=== PATIENT | male | born 1980 | race Caucasian/White ===

== ENCOUNTER 2016-09-15 10:03 | Emergency (ER) | payer MEDICAID ==
[~2016-09-15] VITALS: Ht 193 cm; Wt 99.8 kg
[~2016-09-15 10:03] MED LIST: ACHD5005 PO; ALBU8.5H2 IH; BECL8.7A5 IH; DOXY100C2 PO; HYDR-757 PO; HYOS0.1216 PO; IBUP800T26 PO; MNTL10T PO; MONT4TAB5; NAPR-243 PO; OMEPRAZOLE; ONDA-42 SL; ONDN4T PO; PRO AIR; SLMFT1E; SODI100P15; TRAZ150T42 PO; TRM50T PO
--- NOTE | 2016-09-15 10:49 | ED Psychosocial ---
General Stated Complaint: SUICIDAL Source: patient Exam Limitations: no limitations History of Present Illness Time seen by provider: 10:47 Initial Comments To ER with reports of suicidal thoughts without plan, anxiety and depression since Thursday, 3 days ago when his left him and he states that she checked into a inpatient psychiatric facility. He is afraid she will come back. He is unemployed and has no other support system. He has a history of depression but does not take any medication for this. He has never been hospitalized for psychiatric reasons before. He is also out of his when necessary Xanax which was last filled on August 06 Timing/Duration: just prior to arrival Severity: moderate Associated Symptoms: anxiety Allergies and Home Medications Allergies Coded Allergies: Penicillins (Unverified Allergy, Mild, 11/07/09) codeine (Unverified Allergy, Mild, 11/07/09) egg (Verified Allergy, Unknown, 09/15/16) Home Medications (Reported) Albuterol 8.5 Gm Hfa.aer.ad 2 PUFF IH QID PRN PRN SHORTNESS OF BREATH (Reported ) NEEDED FOR SHORTNESS OF BREATH Beclomethasone Dipropionate 7.3 Gm Aer.w.adap 2 PUFF IH BID (Reported) 40 MCG Cefdinir 300 Mg Capsule #14 300 MG PO BID Prescribed by: AMI CALLAHAN on 09/15/16 1213 Hydrocodone Bit/Acetaminophen 1 Each Tablet 1 TAB PO BID PRN PRN PAIN (Reported ) NEEDED FOR PAIN 5-325MG TABLET Hyoscyamine Sulfate 0.125 Mg Tab #10 1-2 EACH PO Q4HR PRN PRN PRN CRAMPS Prescribed by: BECCA BURK on 12/22/13 1401 Ibuprofen 800 Mg Tablet 800 MG PO q8h PRN PRN PAIN (Reported) Lorazepam 1 Mg Tablet #10 1 MG PO BID PRN PRN ANXIETY Prescribed by: AMI CALLAHAN on 09/15/16 1153 Montelukast Sodium 10 Mg Tablet 10 MG PO DAILY (Reported) Ondansetron Hcl 4 Mg Tab #5 4 MG SL Q4H FOR NAUSEA AND VOMITING Prescribed by: BECCA BURK on 12/22/13 1401 Constitutional: see HPI EENTM: see HPI Respiratory: no symptoms reported Cardiovascular: no symptoms reported Genitourinary: no symptoms reported Musculoskeletal: no symptoms reported Skin: no symptoms reported Psychiatric/Neurological: See HPI Anxiety Depressed Emotional Problems Past Qeaetsr-Hfjtpf-Rzcfms Hx Patient Social History Recent Foreign Travel: No Contact w/Someone Who Travel: No Surgeries HX Surgeries: Yes Respiratory Hx Respiratory Disorders: Yes Respiratory Disorders: Asthma Cardiovascular Hx Cardiac Disorders: No Neurological Hx Neurological Disorders: No Gastrointestinal Hx Gastrointestinal Disorders: Yes Gastrointestinal Disorders: Gastroesophageal Reflux, Hemorrhoids Musculoskeletal Hx Musculoskeletal Disorders: No Endocrine Hx Endocrine Disorders: No Cancer Hx Cancer: No Physical Exam Vital Signs Vital Sign - Last 12Hours 09/15/16 10:10 Temp 97.5 Pulse 70 Resp 16 B/P 118/70 O2 Delivery Room Air Capillary Refill : General Appearance: WD/WN no apparent distress HEENT: PERRL/EOMI normal ENT inspection TMs normal Neck: non-tender full range of motion Respiratory: lungs clear normal breath sounds no respiratory distress no accessory muscle use Cardiovascular: regular rate, rhythm no murmur Gastrointestinal: normal bowel sounds non tender soft Extremities: normal range of motion non-tender Neurologic/Psychiatric: alert normal mood/affect oriented x 3 Appearance/Memory: disheveled Behavior/Eye Contact: cooperative good eye contact other (cries when answering questions and states that he feels very anxious and scared when he is alone) Skin: normal color warm/dry Comments He is unable to voice a specific plan for suicide. Progress/Results/Core Measures Results/Orders Lab Results Laboratory Tests Test 09/15/16 11:10 09/15/16 11:47 Range/Units Acetaminophen Level < 10 L 10-30 UG/ML Alanine Aminotransferase (ALT/SGPT) 13 0-55 U/L Albumin 4.7 H 3.2-4.5 G/DL Alkaline Phosphatase 91 40-136 U/L Anion Gap 9 5-14 MMOL/L Aspartate Amino Transf (AST/SGOT) 10 5-34 U/L BUN/Creatinine Ratio 12 Band Neutrophils 1 % Basophils # (Auto) 0.1 0.0-0.1 10^3/uL Basophils % (Manual) 0 % Basophils (%) (Auto) 1 0-10 % Blood Morphology Comment NORMAL Blood Urea Nitrogen 11 7-18 MG/DL Calcium Level 9.4 8.5-10.1 MG/DL Carbon Dioxide Level 25 21-32 MMOL/L Chloride Level 106 98-107 MMOL/L Creatinine 0.90 0.60-1.30 MG/DL Eosinophils # (Auto) 0.2 0.0-0.3 10^3/uL Eosinophils % (Manual) 1 % Eosinophils (%) (Auto) 1 0-10 % Estimat Glomerular Filtration Rate > 60 Glucose Level 98 70-105 MG/DL Hematocrit 50 40-54 % Hemoglobin 17.6 13.3-17.7 G/DL Lymphocytes # (Auto) 2.2 1.0-4.0 X 10^3 Lymphocytes % (Manual) 10 % Lymphocytes (%) (Auto) 13 12-44 % Mean Corpuscular Hemoglobin 30 25-34 PG Mean Corpuscular Hemoglobin Concent 35 32-36 G/DL Mean Corpuscular Volume 85 80-99 FL Mean Platelet Volume 9.7 7.4-10.4 FL Monocytes # (Auto) 1.2 H 0.0-1.0 X 10^3 Monocytes % (Manual) 4 % Monocytes (%) (Auto) 7 0-12 % Neutrophils # (Auto) 13.3 H 1.8-7.8 X 10^3 Neutrophils % (Manual) 80 % Neutrophils (%) (Auto) 78 H 42-75 % Platelet Count 282 130-400 10^3/uL Potassium Level 4.0 3.6-5.0 MMOL/L Reactive Lymphocytes 4 % Red Blood Count 5.90 H 4.35-5.85 10^6/uL Red Cell Distribution Width 13.8 10.0-14.5 % Salicylates Level < 5.0 L 5.0-20.0 MG/DL Serum Alcohol < 10 <10 MG/DL Sodium Level 140 135-145 MMOL/L TSH [place] Testing 0.82 0.35-4.94 UIU/ML Total Bilirubin 0.6 0.1-1.0 MG/DL Total Protein 7.3 6.4-8.2 G/DL White Blood Count 16.9 H 4.3-11.0 10^3/uL Ur Tricyclic Antidepressants Screen NEGATIVE NEGATIVE Urine Amphetamines Screen NEGATIVE NEGATIVE Urine Bacteria NEGATIVE /HPF Urine Barbiturates Screen NEGATIVE NEGATIVE Urine Benzodiazepines Screen NEGATIVE NEGATIVE Urine Bilirubin NEGATIVE NEGATIVE Urine Cannabinoids Screen POSITIVE H NEGATIVE Urine Casts NONE /LPF Urine Clarity CLEAR Urine Cocaine Screen NEGATIVE NEGATIVE Urine Color YELLOW Urine Crystals NONE /LPF Urine Culture Indicated NO Urine Glucose (UA) NEGATIVE NEGATIVE Urine Ketones NEGATIVE NEGATIVE Urine Leukocyte Esterase NEGATIVE NEGATIVE Urine Methadone Screen NEGATIVE NEGATIVE Urine Methamphetamines Screen NEGATIVE NEGATIVE Urine Mucus NEGATIVE /LPF Urine Nitrite NEGATIVE NEGATIVE Urine Opiates Screen NEGATIVE NEGATIVE Urine Oxycodone Screen NEGATIVE NEGATIVE Urine Phencyclidine Screen NEGATIVE NEGATIVE Urine Propoxyphene Screen NEGATIVE NEGATIVE Urine Protein NEGATIVE NEGATIVE Urine RBC NONE /HPF Urine RBC (Auto) NEGATIVE NEGATIVE Urine Specific [place] 1.010 L 1.016-1.022 Urine Squamous Epithelial Cells 0-2 /HPF Urine Urobilinogen NORMAL NORMAL MG/DL Urine WBC NONE /HPF Urine pH 8 5-9 My Orders Orders-AMI CALLAHAN APRN Alprazolam Tablet (Xanax Tablet) (09/15/16 11:00) Alprazolam Tablet (Xanax Tablet) (09/15/16 11:00) Alprazolam Tablet (Xanax Tablet) (09/15/16 10:59) Nicotine Patch (Nicoderm Patch) (09/15/16 11:15) Chest 1 View, Ap/Pa Only (09/15/16 11:35) Cefdinir Capsule (Omnicef Capsule) (09/15/16 12:15) Potassium Chloride (Tablet) (K Dur Table (09/15/16 12:30) Ceftriaxone Injection (Rocephin Injectio (09/15/16 12:30) Medications Given in ED Current Medications Medications Dose Ordered Sig/Adonay Route Start Time Stop Time Status Last Admin Dose Admin Nicotine 21 mg ONCE ONCE TD 09/15/16 11:15 09/15/16 11:16 DC 09/15/16 11:21 21 MG Vital Signs/I&O Vital Sign - Last 12Hours 09/15/16 10:10 Temp 97.5 Pulse 70 Resp 16 B/P 118/70 O2 Delivery Room Air Diagnostic Imaging Diagonstic Imaging: Xray Comments NAME: [facility] REC#: [id number] PT STATUS: REG ER : 1980 PHYSICIAN: AMI CALLAHAN APRN ADMIT DATE: 09/15/16/ER Draft Date of Exam:09/15/16 CHEST 1 VIEW, AP/PA ONLY Portable upright radiograph of the chest. INDICATION: Mid chest and epigastric pain for three days. FINDINGS: There is slight focal interstitial marking prominence in the left lung base that may relate to mild atelectasis or early infiltrate. The right lung is clear. The heart size is normal. No effusion or pneumothorax. Mediastinum and jhonatan appear unremarkable. IMPRESSION: Subtle interstitial focal opacity in the left lung base may relate to mild atelectasis or infiltrate. Followup PA and lateral views for better evaluation is recommended. Dictated on workstation # [id number] Dict: 09/15/16 1152 Trans: 09/15/16 1157 [id number] Interpreted by: ANTONIO RENDON MD Electronically signed by: Departure Communication Progress Notes 1150- after the Xanax patient is now much more relaxed, not tearful any longer and denies suicidal ideations. I spoke with Fady from [facility]. He will call him at 2 p.m. to set up outpatient services. They will also do welfare checks in the afternoon and evening on him for the next 2 days. Patient is in agreement with this plan. Impression Impression: Primary Impression: Anxiety Additional Impressions: Depression Qualified Code: F32.9 - Major depressive disorder, single episode, unspecified LLL pneumonia Qualified Code: J18.1 - Lobar pneumonia, unspecified organism Disposition: 01 HOME, SELF-CARE Condition: Stable Departure-Patient Inst. Decision time for Depature: 11:51 Referrals: [facility] (PCP/Family) Primary Care Physician Patient Instructions: Anxiety, Adult (DC) Add. Discharge Instructions: 1. Return to ER for any concerns 2. Call [facility] at [phone] at anytime 24 hours a day 7 days a week 365 days a year. 3. Medication as directed 4. You should follow-up with [facility] later this week to recheck blood work as your white blood cells were high today at 16.9. Scripts Cefdinir 300 Mg [id number] Mg PO BID #14 CAP Prov:AMI CALLAHAN [employer] 09/15/16 Lorazepam (Ativan)1 Mg Tablet1 Mg PO BID PRN ANXIETY #10 TAB Prov:AMI CALLAHAN [employer] 09/15/16 AMI CALLAHAN APRN Sep 15, 2016 10:49
[2016-09-15] MEDS ORDERED: ALPRAZolam 0.5 MG (XANAX) TAB ONE (10:59)
[2016-09-15] MEDS ORDERED: ALPRAZolam 0.5 MG (XANAX) TAB PO SCH (11:00)
[2016-09-15] MEDS: ALPRAZolam 1 MG (XANAX) TAB PO SCH ×2 (11:01→11:34)
[2016-09-15] MEDS ORDERED: NICOTINE 21 MG (NICODERM) PATCH TD ONE (11:15)
[2016-09-15 11:26] LABS: BASOPHILS # (AUTO) 0.1 10^3/uL (0.0-0.1); BASOPHILS % (AUTO) 1 % (0-10); EOSINOPHILS # (AUTO) 0.2 10^3/uL (0.0-0.3); EOSINOPHILS % (AUTO) 1 % (0-10); LYMPHOCYTES # (AUTO) 2.2 X 10^3 (1.0-4.0); LYMPHOCYTES % (AUTO) 13 % (12-44); MEAN CORPUSCULAR HEMOGLOBIN 30 PG (25-34); MEAN CORPUSCULAR HGB CONC 35 G/DL (32-36); MEAN CORPUSCULAR VOLUME 85 FL (80-99); MEAN PLATELET VOLUME 9.7 FL (7.4-10.4); MONOCYTES # (AUTO) 1.2 X 10^3 (0.0-1.0); MONOCYTES % (AUTO) 7 % (0-12); NEUTROPHILS # (AUTO) 13.3 X 10^3 (1.8-7.8); NEUTROPHILS % (AUTO) 78 % (42-75); PLATELET COUNT 282 10^3/uL (130-400); RED CELL DISTRIBUTION WIDTH 13.8 % (10.0-14.5); WHITE BLOOD COUNT 16.9 10^3/uL (4.3-11.0)
[2016-09-15 11:41] LABS: ALANINE AMINOTRANSFERASE 13 U/L (0-55); ALBUMIN 4.7 G/DL (3.2-4.5); ANION GAP 9 MMOL/L (5-14); ASPARTATE AMINO TRANSFERASE 10 U/L (5-34); BILIRUBIN,TOTAL 0.6 MG/DL (0.1-1.0); BLOOD UREA NITROGEN 11 MG/DL (7-18); BUN/CREATININE RATIO 12; CALCIUM 9.4 MG/DL (8.5-10.1); CARBON DIOXIDE 25 MMOL/L (21-32); CHLORIDE 106 MMOL/L (98-107); GFR ESTIMATED > 60; GLUCOSE 98 MG/DL (70-105); SALICYLATE < 5.0 MG/DL (5.0-20.0); SODIUM 140 MMOL/L (135-145); TOTAL PROTEIN 7.3 G/DL (6.4-8.2)
[2016-09-15 11:44] LABS: ACETAMINOPHEN < 10 UG/ML (10-30); ALCOHOL < 10 MG/DL (<10)
[2016-09-15 11:51] LABS: BAND NEUTROPHILS 1 %; BASOPHILS % (MANUAL) 0 %; EOSINOPHILS % (MANUAL) 1 %; LYMPHOCYTES % (MANUAL) 10 %; NEUTROPHILS % (MANUAL) 80 %; REACTIVE LYMPHOCYTES 4 %
[2016-09-15] MEDS ORDERED: LORA-405 PO (11:53)
--- NOTE | 2016-09-15 11:58 | Diagnostic Imaging Report ---
Portable upright radiograph of the chest. INDICATION: Mid chest and epigastric pain for three days. FINDINGS: There is slight focal interstitial marking prominence in the left lung base that may relate to mild atelectasis or early infiltrate. The right lung is clear. The heart size is normal. No effusion or pneumothorax. Mediastinum and jhonatan appear unremarkable. IMPRESSION: Subtle interstitial focal opacity in the left lung base may relate to mild atelectasis or infiltrate. Followup PA and lateral views for better evaluation is recommended. Dictated by: Dictated on workstation # [id number]
[2016-09-15 12:03] LABS: BILIRUBIN,URINE NEGATIVE (NEGATIVE); KETONES,URINE NEGATIVE (NEGATIVE); LEUKOCYTE ESTERASE ,URINE NEGATIVE (NEGATIVE); NITRITE,URINE NEGATIVE (NEGATIVE); PH,URINE 8 (5-9); PROTEIN,URINE NEGATIVE (NEGATIVE); UROBILINOGEN,URINE NORMAL (NORMAL)
[2016-09-15] MEDS ORDERED: CEFD300C3 PO (12:13)
[2016-09-15] MEDS ORDERED: CEFDINIR 300 MG (OMNICEF) CAP PO ONE (12:15)
[2016-09-15] MEDS ORDERED: cefTRIAXone INJECTION 1,000 MG in NS (IVPB) 50 ML IV ONE (12:30)
[2016-09-15] MEDS ORDERED: KCL 20 MEQ TAB (K-DUR) PO ONE (12:30)
[2016-09-15 12:32] LABS: SQUAMOUS EPITHELIAL CELL,UR 0-2 /HPF
[2016-09-15] MEDS ORDERED: LIDOCAINE 1% INJ 20 ML (XYLOCAINE) VIAL ONE (12:45)
[2016-09-15] MEDS ORDERED: cefTRIAXone 1 GM (ROCEPHIN) VIAL IM ONE (13:00)
[2016-09-15] MEDS ORDERED: LIDOCAINE 1% INJ 20 ML (XYLOCAINE) VIAL INJ ONE (13:00)
[2016-09-15 13:10] VITALS: BP 116/68
== END 2016-09-15 13:10 | disposition home or self-care (01) ==
LOC: EDUNIT# 10:03 → ER 10:05
DX: F41.9 Anxiety disorder, unspecified (principal); F32.9 Major depressive disorder, single episode, unspecified; J18.9 Pneumonia, unspecified organism
CPT/HCPCS: 36415; 71010; 80053; 80306; 80320; 80329; 81000; 84443; 85007; 85027; 93005; 93041; 96372

== ENCOUNTER 2018-05-13 11:26 | Emergency (ER) | payer SELFPAY ==
[~2018-05-13] VITALS: Ht 193 cm; Wt 90.7 kg
[~2018-05-13 11:26] MED LIST changes: +CEFD300C3 PO; +CYCL10TA9 PO; +LORA-405 PO; +METH4TAB PO
[2018-05-13] MEDS ORDERED: morphine INJ 10 MG/ML 1ML (SYR OR VIAL) ONE (11:28)
--- OUTSIDE RECORDS SUMMARY | 2018-05-13 11:33 | XMS REPORT ---
Author Author JAGRUTI KORY Organization [facility] Address [address] [place] [address] Care Team Providers Care Visitor Services Information Assistant Name Role Phone KORY CHAND Unavailable PROBLEMS Type Condition ICD9-CM Code [id number] Code Onset Dates Condition Status SNOMED Code Problem Obstructive sleep apnea syndrome G47.33 Active 66838585 Problem Cannabis dependence F12.20 Active 49952092 Problem Anxiety, generalized F41.1 Active 05706938 Problem Other chronic pain G89.29 Active 73300343 Problem Adjustment disorder with depressed mood F43.21 Active 63053363 Problem Chronic post-traumatic stress disorder (PTSD) F43.12 Active 318393724 Problem Post-traumatic stress disorder F43.10 Active 79411764 Problem Adjustment disorder with anxious mood F43.22 Active 21608017 Problem Adjustment disorder with mixed anxiety and depressed mood F43.23 Active 01314776 Problem Bipolar disorder, unspecified F31.9 Active 17252486 Problem Gastroesophageal reflux disease without esophagitis K21.9 Active 575676494 Problem Cannabis use disorder, moderate, dependence F12.20 Active 96162345 Problem Cigarette nicotine dependence with other nicotine-induced disorder F17.218 Active 01849300 Problem Panic disorder with agoraphobia F40.01 Active 32891254 Problem Moderate persistent asthma without complication J45.40 Active 671423003 ALLERGIES No Information ENCOUNTERS Encounter Location Date Diagnosis [facility] [id number], [place] [address] Apr, [facility] [id number] [place] [address] 95760- 0098 Apr, Bipolar disorder, unspecified F31.9 ; Panic disorder with agoraphobia F40.01 and Cannabis use disorder, moderate, dependence F12.20 [facility] [id number], [place] [address] Mar, [place] [id number] [place] [address] 65486- 7519 Mar, [place] [id number] [place] [address] 18960- 2262 Jan, Low back pain M54.5 ; Moderate persistent asthma without complication J45.40 and Other chronic pain G89.29 [place] [address] [address]03- 8719 Jan, Moderate persistent asthma without complication J45.40 ; Low back pain M54.5 ; Other chronic pain G89.29 ; Gastroesophageal reflux disease without esophagitis K21.9 and Cigarette nicotine dependence with other nicotine-induced disorder F17.218 [place] [id number] [place] [address] 55953- 1990 December, Bipolar disorder, unspecified F31.9 ; Panic disorder with agoraphobia F40.01 ; Cannabis use disorder, moderate, dependence F12.20 and Chronic post-traumatic stress disorder (PTSD) F43.12 [place] [id number] [place] [address] 19883- 1862 December, [place] [id number] [place] [address] 02755- 6169 December, [place] [id number] [place] [address] 76503- 9179 Nov, [place] [id number] [place] [address] 32428- 8446 Oct, Bipolar disorder, unspecified F31.9 ; Chronic post- traumatic stress disorder (PTSD) F43.12 ; Panic disorder with agoraphobia F40.01 and Cannabis use disorder, moderate, dependence F12.20 [place] [id number] [place] [address] 31546- 0573 Sep, [place] [id number] [place] [address] 25511- 2761 Sep, [place] [id number] [place] [address]- 0537 Aug, [facility] [address] 25286- 8089 Aug, Cannabis use disorder, moderate, dependence F12.20 ; Panic disorder with agoraphobia F40.01 and Bipolar affective disorder, currently depressed, moderate F31.32 [place] [address] 40345- 1372 May, Diarrhea of presumed infectious origin A09 and Nausea and vomiting, intractability of vomiting not specified, unspecified vomiting type R11.2 [place] [address] 55717- 2195 Apr, [place] [address] 19392- 0694 Mar, Nausea R11.0 and Gastroenteritis K52.9 [place] [address] 87502- 8899 Mar, Gastroesophageal reflux disease without esophagitis K21.9 [place] [address] 89792- 6272 Mar, Gastroesophageal reflux disease without esophagitis K21.9 [facility] [id number] [place] [address] 20268- 7370 Mar, [facility] [address] 21902- 8104 Mar, [facility] [address] 72864- 4182 Mar, [facility] [address] 07961- 1138 Feb, Acute pain of right shoulder M25.511 and Muscle spasm M62.838 [facility] [id number] [place] [address] 57636- 7072 Feb, Acute labyrinthitis, unspecified laterality H83.09 [place] [address], [place] [address] 8840 December, [place] [id number] [place] [address] 76657- 1169 December, [place] [id number] [place] [address] 29236- 8123 December, Cannabis use disorder, moderate, dependence F12.20 ; Anxiety , generalized F41.1 ; Adjustment disorder with mixed anxiety and depressed mood F43.23 and Chronic post-traumatic stress disorder (PTSD) F43.12 [place] [id number] [place] [address] 12525- 6428 December, [place] [id number] [place] [address] 02164- 4868 December, [place] [id number] [place] [address] 73895- 0400 Nov, Acute nasopharyngitis J00 [place] [id number] [place] [address] 82743- 0632 Nov, Cannabis use disorder, moderate, dependence F12.20 ; Anxiety , generalized F41.1 ; Adjustment disorder with mixed anxiety and depressed mood F43.23 and Chronic post-traumatic stress disorder (PTSD) F43.12 [place] [id number] [place] [address] 50402- 3253 Nov, Cannabis use disorder, moderate, dependence F12.20 ; Anxiety , generalized F41.1 ; Adjustment disorder with mixed anxiety and depressed mood F43.23 and Chronic post-traumatic stress disorder (PTSD) F43.12 [place] [address] [place] [address] 36892- 5793 Oct, Diarrhea, unspecified R19.7 ; Vomiting, unspecified R11.10 and Viral gastroenteritis A08.4 [place] [address], [place] [address]- 7640 Oct, Bipolar disorder, unspecified F31.9 ; Panic disorder with agoraphobia F40.01 ; Cannabis use disorder, moderate, dependence F12.20 ; Cigarette nicotine dependence with other nicotine-induced disorder F17.218 ; Anxiety, generalized F41.1 ; Post-traumatic stress disorder F43.10 and Adjustment disorder with mixed anxiety and depressed mood F43.23 [place] [address] [place] [address] 67439- 6436 Oct, Bipolar disorder, unspecified F31.9 ; Chronic post- traumatic stress disorder (PTSD) F43.12 ; Panic disorder with agoraphobia F40.01 and Cannabis use disorder, moderate, dependence F12.20 [place] [id number] [place] [address] 19499- 0189 Oct, Bipolar disorder, unspecified F31.9 ; Panic disorder with agoraphobia F40.01 ; Cannabis use disorder, moderate, dependence F12.20 ; Cigarette nicotine dependence with other nicotine-induced disorder F17.218 ; Anxiety, generalized F41.1 ; Post-traumatic stress disorder F43.10 and Adjustment disorder with mixed anxiety and depressed mood F43.23 [place] [id number] [place] [address] 95610- 1627 14 Oct, 2016 Viral gastroenteritis A08.4 [address] [id number] [place] [address] 39644- 7480 09 Oct, 2016 Anxiety, generalized F41.1 ; Post-traumatic stress disorder F43.10 ; Adjustment disorder with depressed mood F43.21 and Adjustment disorder with anxious mood F43.22 [place] [id number] [place] [address] 09252- 4901 07 Oct, 2016 Panic disorder with agoraphobia F40.01 ; Cannabis use disorder, moderate, dependence F12.20 ; Bipolar disorder, unspecified F31.9 ; Cigarette nicotine dependence with other nicotine-induced disorder F17.218 ; Adjustment disorder with anxious mood F43.22 ; Anxiety, generalized F41.1 ; Post -traumatic stress disorder F43.10 and Cannabis dependence F12.20 [place] [id number] [place] [address] 53771- 4272 Oct, Bipolar disorder, unspecified F31.9 and Chronic post- traumatic stress disorder (PTSD) F43.12 [place] [id number] [place] [address] Oct, Bipolar disorder, unspecified F31.9 and Chronic post- traumatic stress disorder (PTSD) F43.12 [place] [id number] [place] [address] 3166 Sep, Bipolar disorder, unspecified F31.9 ; Panic disorder with agoraphobia F40.01 ; PTSD (post-traumatic stress disorder) F43.10 ; Cannabis use disorder, moderate, dependence F12.20 ; Cannabis dependence F12.20 and Anxiety, generalized F41.1 [id number] [place] [address] 60111- 4954 Sep, Cannabis use disorder, moderate, dependence F12.20 ; Anxiety , generalized F41.1 and Adjustment disorder with mixed anxiety and depressed mood F43.23 [address] [id number] [place] [address] 36380- 3078 15 Sep, 2016 Bipolar disorder, unspecified F31.9 ; Panic disorder with agoraphobia F40.01 ; PTSD (post-traumatic stress disorder) F43.10 ; Cannabis use disorder, moderate, dependence F12.20 ; Cannabis dependence F12.20 and Anxiety, generalized F41.1 [address] [place] [address] 15556- 4475 Sep, Bipolar disorder, unspecified F31.9 ; Panic disorder with agoraphobia F40.01 ; PTSD (post-traumatic stress disorder) F43.10 ; Cannabis use disorder, moderate, dependence F12.20 ; Cannabis dependence F12.20 and Anxiety, generalized F41.1 [id number] [place] [address] 58515- 0222 Sep, Bipolar disorder, unspecified F31.9 ; Post-traumatic stress disorder F43.10 and Cannabis dependence F12.20 [address] [place] [address] Sep, [place] [address] [place] [address] 95669- 7919 08 Sep, 2016 Suicidal behavior without attempted self-injury R46.89 [place] [id number] [place] [address] 11702- 8718 Sep, [place] [id number] [place] [address] 99179- 3682 Sep, Cannabis use disorder, moderate, dependence F12.20 ; Panic disorder with agoraphobia F40.01 ; Bipolar disorder, unspecified F31.9 and Anxiety, generalized F41.[address] 346999- 4612 Sep, Bipolar disorder, unspecified F31.9 ; PTSD (post-traumatic stress disorder) F43.10 ; Panic disorder with agoraphobia F40.01 and Cannabis use disorder, moderate, dependence F12.20 [id number] [place] [address] 16217- 9145 Sep, [id number] [place] [address] 04899- 0800 Sep, PTSD (post-traumatic stress disorder) F43.10 ; Cannabis use disorder, moderate, dependence F12.20 and Suicidal risk R45.89 [id number] [place] [address] 51726- 1783 Sep, [id number] [place] [address] 98383- 1396 Jul, Bipolar disorder, unspecified F31.9 ; PTSD (post-traumatic stress disorder) F43.10 and Panic disorder with agoraphobia F40.01 [id number] [place] [address] 65926- 1188 13 Jul, 2016 Obstructive sleep apnea syndrome G47.33 ; Moderate persistent asthma without complication J45.40 and Cigarette nicotine dependence with other nicotine-induced disorder F17.[address] [place] [address]- 8171 05 Jul, 2016 [facility] [address] [place] [address] 60618- 9443 Jul, [facility] [id number] [place] [address] 24909- 9702 May, [facility] [id number] [place] [address] 42609- 2429 May, [facility] [id number] [place] [address] 78817- 1194 May, [facility] [id number] [place] [address] 92535- 8537 Apr, [address] [id number] [place] [address] 57449- 1352 Apr, Bipolar disorder, unspecified F31.9 ; PTSD (post-traumatic stress disorder) F43.10 ; Panic disorder with agoraphobia F40.01 and Cannabis use disorder, moderate, dependence F12.20 [place] [address] [place] [address] 93752- 0713 Mar, Uncomplicated asthma, unspecified asthma severity J45.909 [place] [id number] [place] [address] 82065- 6423 Mar, [place] [id number] [place] [address] 77951- 7626 Mar, Moderate persistent asthma without complication J45.40 ; Gastroesophageal reflux disease without esophagitis K21.9 and Cigarette nicotine dependence with other nicotine-induced disorder F17.218 [place] [id number] [place] [address] 63140- 3418 Feb, [place] [id number] [place] [address] 68072- 9865 Jan, Bipolar disorder, unspecified F31.9 ; PTSD (post-traumatic stress disorder) F43.10 ; Panic disorder with agoraphobia F40.01 and Cannabis use disorder, moderate, dependence F12.20 [facility] [address], [place] [address]- 5572 December, [facility] [id number] [place] [address] 05283- 9764 Nov, [facility] [address], [place] [address]- 2098 Nov, Bipolar disorder, unspecified F31.9 ; PTSD (post-traumatic stress disorder) F43.10 ; Panic disorder with agoraphobia F40.01 and Cannabis use disorder, moderate, dependence F12.20 [place] [address] [place] [address] 48926- 6760 Oct, [facility] [id number] [place] [address] 46148- 6552 Oct, [place] [id number] [place] [address] 18438- 2551 Sep, [facility] [address] [place] [address] 82768- 7290 Sep, Bipolar disorder, unspecified F31.9 ; PTSD (post-traumatic stress disorder) F43.10 ; Panic disorder with agoraphobia F40.01 and Cannabis use disorder, moderate, dependence F12.20 [place] [address], [place] [address]- 6139 Aug, [facility] [address], [place] [address]- 0102 Aug, [facility] [address], [place] [address]- 1429 Aug, Bipolar disorder, unspecified F31.9 ; PTSD (post-traumatic stress disorder) F43.10 ; Panic disorder with agoraphobia F40.01 and Cannabis use disorder, moderate, dependence F12.20 [facility] [address], [place] [address]- 7428 Jul, [facility] [id number], [place] [address]- 0506 Apr, GERD (gastroesophageal reflux disease) 530.81 and Internal hemorrhoids 455.0 [facility] [id number] [place] [address] 09262- 8316 Feb, Rectal bleeding 569.3 and Hemorrhoids 455.6 [facility] [id number] [place] [address] 03562- 7646 Jan, Sinusitis 473.9 and Otitis media 382.9 [facility] [id number] [place] [address] 62439- 9646 December, [facility] [id number] [place] [address] 84041- 2136 Nov, [facility] [id number] [place] [address] 18291- 5006 Nov, [facility] [id number] [place] [address] 28787- 3786 Oct, [facility] [address] [place] [address] 36922- 3056 Oct, [facility] [address] [place] [address] 97954- 1696 Sep, [facility] [address], [place] [address]- 4016 Sep, [facility] [address] [place] [address] 22908- 1836 Aug, [facility] [address] [place] [address] 91625- 7126 Aug, [facility] [id number] [place] [address] 81205- 6716 Jul, [facility] [address], [place] [address]- 8486 Jul, [facility] [id number] [place] [address] 68197- 1032 Jul, [facility] [place] [facility] [address] [id number] [place] [address]- 4993 Jul, [facility] [place] [facility] [address] [id number] [place] [address]- 5932 Jul, [facility] [place] [facility] [address] [facility] [id number] [place] [address]- 0614 Jul, [facility] [place] [facility] [address] [id number] [place] [address]- 8613 Jul, [facility] [place] [facility] [address] [facility] [id number] [place] [address]- 0620 Jul, [facility] [place] [facility] [address] [facility] [id number] [place] [address]- 1541 Jun, [facility] [place] [facility] [address] [facility] [id number], [place] [address]- 0453 Jun, [facility] [place] [facility] [address] [id number], [place] [address]- 8362 Jun, [facility] [place] [facility] [address] [facility] [id number], [place] [address]- 1996 Jun, [facility] [place] [facility] [address] [facility] [id number], [place] [address]- 6514 May, [facility] [place] [facility] [address] [facility] [id number], [place] [address]- 0987 May, [facility] [place] [facility] [address] [id number], [place] [address]- 1694 May, [facility] [place] [facility] [address] [id number], [place] [address]- 2229 May, [facility] [place] [facility] [address] [facility] [id number], [place] [address]- 7750 Apr, [facility] [place] [facility] [address] [facility] [id number], [place] [address]- 5691 Apr, [facility] [place] [facility] [address] [id number] [place] [address]- 7713 Apr, [facility] [place] [facility] [address] [id number] [place] [address]- 6610 Apr, [facility] [place] [facility] [address] [id number] [place] [address]- 6120 Mar, [facility] [place] [facility] [address] [id number] [place] [address]- 2807 Mar, [facility] [place] [facility] [address] [id number] [place] [address]- 9629 Mar, [facility] [place] [facility] [address] [id number] [place] [address]- 9045 Mar, [facility] [place] [facility] [address] [id number] [place] [address]- 6510 December, [facility] [place] [facility] [address] [id number] [place] [address]- 4645 December, [facility] [place] [facility] [address] [id number] [place] [address]- 3437 Nov, [facility] [place] [facility] [address] [id number] [place] [address]- 4767 Nov, [facility] [place] [facility] [address] [id number] [place] [address]- 2553 Sep, [facility] [place] [facility] [address] [id number] [place] [address]- 1844 Sep, [facility] [place] [facility] [address] [id number] [place] [address]- 4739 Sep, [facility] [place] [facility] [address] [id number] [place] [address]- 4695 Sep, [facility] [place] [facility] [address] [id number] [place] [address]- 1337 Aug, [facility] [place] [facility] [address] [id number] [place] [address]- 2546 Jul, [facility] [place] [facility] [address] [id number] [place] [address]- 5500 Jul, [facility] [place] [facility] [address] [id number] [place] [address]- 0631 Jun, [facility] [place] [facility] [address] [id number] [place] [address]- 1699 Jun, [facility] [place] [facility] [address] [id number] [place] [address]- 2169 May, [facility] [place] [facility] [address] [id number] [place] [address]- 7208 May, [facility] [place] [facility] [address] [id number] [place] [address]- 2297 May, [facility] [place] [facility] [address] [id number] [place] [address]- 4206 17 Apr, 2013 [facility] [place] [facility] [address] [id number] [place] [address]- 3657 16 Apr, 2013 [facility] [place] [facility] [address] [id number] [place] [address]- 0123 09 Apr, 2013 [facility] [place] [facility] [address] [id number] [place] [address]- 2710 09 Apr, 2013 [facility] [place] [facility] [address] [id number] [place] [address]- 4725 Mar, [facility] [place] [facility] [address] [id number] [place] [address]- 7292 Mar, [facility] [place] [facility] [address] [id number] [place] [address]- 0224 December, [facility] [place] [facility] [address] [id number] [place] [address]- 5586 Oct, [facility] [place] [facility] [address] [id number] [place] [address]- 4821 Oct, [facility] [place] [facility] [address] [id number] [place] [address]- 2546 10 Aug, 2012 [facility] [address] [id number] [place] [address]- 7626 17 Jul, 2012 [facility] [address] [id number] [place] [address]- 2546 17 Jul, 2012 [facility] [address] [id number] [place] [address]- 4306 13 Jul, 2012 [facility] [address] [id number] [place] [address]- 1876 13 Jul, 2012 [facility] [address] [id number] [place] [address]- 5906 14 Jun, 2012 [facility] [address] [id number] [place] [address]- 7566 14 Jun, 2012 [facility] [address] [id number] [place] [address]- 4836 14 Mar, 2012 [facility] [address] [id number] [place] [address] 16 Feb, 2012 [facility] [address] [id number] [place] [address] 16 Feb, 2012 [facility] [address] [id number] [place] [address] 15 Dec, 2011 [facility] [address] [id number] [place] [address] 17 Nov, 2011 [facility] [address] [id number] [place] [address] Oct, [facility] [place] [facility] [address] [id number] [place] [address] Oct, [facility] [address] [id number] [place] [address] Sep, [facility] [address] [id number] [place] [address] Sep, [facility] [address] [id number] [place] [address] Aug, [facility] [place] [facility] [address] [id number] [place] [address] Aug, [facility] [place] [facility] [address] [id number] [place] [address] Jul, [facility] [place] [facility] [address] [id number] [place] [address] Jul, [facility] [place] [facility] [address] [id number] [place] [address] Jul, [facility] [place] [facility] [address] [id number] [place] [address] Jun, [facility] [place] [facility] [address] [id number] [place] [address] May, [facility] [place] [facility] [address] [id number] [place] [address] Apr, [facility] [place] [facility] [address] [id number] [place] [address] Feb, [facility] [place] [facility] [address] [id number] [place] [address] Sep, [facility] [place] [facility] [address] [id number] [place] [address] Jul, [facility] [place] [facility] [address] [id number], [place] [address] Jul, [facility] [place] [facility] [address] [id number] [place] [address] Jul, [facility] [place] [facility] [address] [id number] [place] [address] Jul, [facility] [place] [facility] [address] [id number] [place] [address] Jun, [facility] [place] [facility] [address] [facility] [id number] [place] [address] Feb, [facility] [address] [facility] [id number], [place] [address] Jan, [facility] [address] [facility] [facility] [id number], [place] [address] Feb, [facility] [address] [facility] [place] [id number], [place] [address] Jul, IMMUNIZATIONS No Known Immunizations SOCIAL HISTORY Never Assessed REASON FOR VISIT PLAN OF CARE VITAL SIGNS MEDICATIONS Medication Instructions Dosage Frequency Start Date End Date Duration Status Loxapine Succinate 10 mg Orally for mood TAKE 4 CAPSULES BY MOUTH AT BEDTIME 30 days Active RESULTS No Results PROCEDURES No Known procedures INSTRUCTIONS MEDICATIONS ADMINISTERED No Known Medications MEDICAL (GENERAL) HISTORY Type Description Date Medical History heartburn Medical History PTSD Medical History bi-polar Medical History asthma Medical History anxiety Medical History depression Medical History pneumonia 09/15/16 Medical History PTSD (post-traumatic stress disorder) Surgical History orthopedic surgery - right hand 1998 Surgical History fractured jaw Hospitalization History surgeries
--- OUTSIDE RECORDS SUMMARY | 2018-05-13 11:33 | XMS REPORT ---
Author Author JAGRUTI KORY Organization [facility] Address [address] [place] [address] Care Team Providers Care Awning Maker And Installer Name Role Phone KORY CHAND Unavailable PROBLEMS Type Condition ICD9-CM Code QDO23-RU Code Onset Dates Condition Status SNOMED Code Problem Obstructive sleep apnea syndrome G47.33 Active 66062184 Problem Cannabis dependence F12.20 Active 15170308 Problem Anxiety, generalized F41.1 Active 71019388 Problem Other chronic pain G89.29 Active 95549196 Problem Adjustment disorder with depressed mood F43.21 Active 42764506 Problem Chronic post-traumatic stress disorder (PTSD) F43.12 Active 250355676 Problem Post-traumatic stress disorder F43.10 Active 72613059 Problem Adjustment disorder with anxious mood F43.22 Active 95655078 Problem Adjustment disorder with mixed anxiety and depressed mood F43.23 Active 71395315 Problem Bipolar disorder, unspecified F31.9 Active 87901817 Problem Gastroesophageal reflux disease without esophagitis K21.9 Active 741863581 Problem Cannabis use disorder, moderate, dependence F12.20 Active 43286126 Problem Cigarette nicotine dependence with other nicotine-induced disorder F17.218 Active 67486032 Problem Panic disorder with agoraphobia F40.01 Active 86580118 Problem Moderate persistent asthma without complication J45.40 Active 762931327 ALLERGIES No Information ENCOUNTERS Encounter Location Date Diagnosis [facility] [id number] [address] Apr, [facility] [id number] [place] [address] 23088- 0711 Apr, Bipolar disorder, unspecified F31.9 ; Panic disorder with agoraphobia F40.01 and Cannabis use disorder, moderate, dependence F12.20 [facility] [id number] [address] Mar, [place] [id number] [place] [address] 38729- 7250 Mar, [facility] [id number] [place] [address] 79278- 4758 Jan, Low back pain M54.5 ; Moderate persistent asthma without complication J45.40 and Other chronic pain G89.29 [place] [address] [address]- [address] Jan, Moderate persistent asthma without complication J45.40 ; Low back pain M54.5 ; Other chronic pain G89.29 ; Gastroesophageal reflux disease without esophagitis K21.9 and Cigarette nicotine dependence with other nicotine-induced disorder F17.218 [place] [id number] [place] [address] 76483- 0140 December, Bipolar disorder, unspecified F31.9 ; Panic disorder with agoraphobia F40.01 ; Cannabis use disorder, moderate, dependence F12.20 and Chronic post-traumatic stress disorder (PTSD) F43.12 [facility] [facility] [id number] [place] [address] 20097- 1832 December, [place] [id number] [place] [address] 18449- 1096 December, [place] [id number] [place] [address] 26723- 5598 Nov, [place] [id number] [place] [address] 86021- 2619 Oct, Bipolar disorder, unspecified F31.9 ; Chronic post- traumatic stress disorder (PTSD) F43.12 ; Panic disorder with agoraphobia F40.01 and Cannabis use disorder, moderate, dependence F12.20 [place] [id number] [place] [address] 88934- 1796 Sep, [place] [id number] [place] [address] 45835- 1762 Sep, [place] [id number] [place] [address] Aug, [facility] [address] [address]- [address] Aug, Cannabis use disorder, moderate, dependence F12.20 ; Panic disorder with agoraphobia F40.01 and Bipolar affective disorder, currently depressed, moderate F31.32 [address] [address] 28[address]- 4610 May, Diarrhea of presumed infectious origin A09 and Nausea and vomiting, intractability of vomiting not specified, unspecified vomiting type R11.2 [place] [address] 48669- 8283 Apr, [place] [address] 87336- 4600 Mar, Nausea R11.0 and Gastroenteritis K52.9 [place] [address] 25869- 9731 Mar, Gastroesophageal reflux disease without esophagitis K21.9 [place] [address] 50337- 4572 Mar, Gastroesophageal reflux disease without esophagitis K21.9 [facility] [id number] [place] [address] 71240- 9126 Mar, [facility] [address] 43095- 7837 Mar, [facility] [address] 92396- 2259 Mar, [facility] [address] 67641- 0261 Feb, Acute pain of right shoulder M25.511 and Muscle spasm M62.838 [facility] [id number] [place] [address] 69097- 0816 Feb, Acute labyrinthitis, unspecified laterality H83.09 [place] [address] [address] 8888 December, [place] [id number] [place] [address] 93693- 5248 December, [place] [id number] [place] [address] 55498- 4133 December, Cannabis use disorder, moderate, dependence F12.20 ; Anxiety , generalized F41.1 ; Adjustment disorder with mixed anxiety and depressed mood F43.23 and Chronic post-traumatic stress disorder (PTSD) F43.12 [place] [id number] [place] [address] 32657- 0652 December, [place] [id number] [place] [address] 27810- 3574 December, [place] [id number] [place] [address] 94092- 3251 Nov, Acute nasopharyngitis J00 [place] [id number] [place] [address] 43629- 8305 Nov, Cannabis use disorder, moderate, dependence F12.20 ; Anxiety , generalized F41.1 ; Adjustment disorder with mixed anxiety and depressed mood F43.23 and Chronic post-traumatic stress disorder (PTSD) F43.12 [place] [id number] [place] [address] 65205- 1718 Nov, Cannabis use disorder, moderate, dependence F12.20 ; Anxiety , generalized F41.1 ; Adjustment disorder with mixed anxiety and depressed mood F43.23 and Chronic post-traumatic stress disorder (PTSD) F43.12 [place] [id number] [place] [address] 38947- 4596 Oct, Diarrhea, unspecified R19.7 ; Vomiting, unspecified R11.10 and Viral gastroenteritis A08.4 [place] [address] [address] 5261 Oct, Bipolar disorder, unspecified F31.9 ; Panic disorder with agoraphobia F40.01 ; Cannabis use disorder, moderate, dependence F12.20 ; Cigarette nicotine dependence with other nicotine-induced disorder F17.218 ; Anxiety, generalized F41.1 ; Post-traumatic stress disorder F43.10 and Adjustment disorder with mixed anxiety and depressed mood F43.23 [place] [id number] [place] [address] 64454- 9608 Oct, Bipolar disorder, unspecified F31.9 ; Chronic post- traumatic stress disorder (PTSD) F43.12 ; Panic disorder with agoraphobia F40.01 and Cannabis use disorder, moderate, dependence F12.20 [place] [id number] [place] [address] 60851- 1038 Oct, Bipolar disorder, unspecified F31.9 ; Panic disorder with agoraphobia F40.01 ; Cannabis use disorder, moderate, dependence F12.20 ; Cigarette nicotine dependence with other nicotine-induced disorder F17.218 ; Anxiety, generalized F41.1 ; Post-traumatic stress disorder F43.10 and Adjustment disorder with mixed anxiety and depressed mood F43.23 [place] [id number] [place] [address] 32782- 4908 14 Oct, 2016 Viral gastroenteritis A08.4 [id number] [place] [address] 31964- 9640 09 Oct, 2016 Anxiety, generalized F41.1 ; Post-traumatic stress disorder F43.10 ; Adjustment disorder with depressed mood F43.21 and Adjustment disorder with anxious mood F43.22 [place] [id number] [place] [address] 18769- 8461 07 Oct, 2016 Panic disorder with agoraphobia F40.01 ; Cannabis use disorder, moderate, dependence F12.20 ; Bipolar disorder, unspecified F31.9 ; Cigarette nicotine dependence with other nicotine-induced disorder F17.218 ; Adjustment disorder with anxious mood F43.22 ; Anxiety, generalized F41.1 ; Post -traumatic stress disorder F43.10 and Cannabis dependence F12.20 [place] [id number] [place] [address] 97291- 0268 Oct, Bipolar disorder, unspecified F31.9 and Chronic post- traumatic stress disorder (PTSD) F43.12 [place] [address] [place] [address] Oct, Bipolar disorder, unspecified F31.9 and Chronic post- traumatic stress disorder (PTSD) F43.12 [place] [id number] [place] [address] Sep, Bipolar disorder, unspecified F31.9 ; Panic disorder with agoraphobia F40.01 ; PTSD (post-traumatic stress disorder) F43.10 ; Cannabis use disorder, moderate, dependence F12.20 ; Cannabis dependence F12.20 and Anxiety, generalized F41.1 [id number] [place] [address] 00273- 5110 Sep, Cannabis use disorder, moderate, dependence F12.20 ; Anxiety , generalized F41.1 and Adjustment disorder with mixed anxiety and depressed mood F43.23 [id number] [place] [address] 75470- 1912 15 Sep, 2016 Bipolar disorder, unspecified F31.9 ; Panic disorder with agoraphobia F40.01 ; PTSD (post-traumatic stress disorder) F43.10 ; Cannabis use disorder, moderate, dependence F12.20 ; Cannabis dependence F12.20 and Anxiety, generalized F41.1 [address] [place] [address] 70105- 0584 Sep, Bipolar disorder, unspecified F31.9 ; Panic disorder with agoraphobia F40.01 ; PTSD (post-traumatic stress disorder) F43.10 ; Cannabis use disorder, moderate, dependence F12.20 ; Cannabis dependence F12.20 and Anxiety, generalized F41.1 [id number] [place] [address] 30236- 5555 Sep, Bipolar disorder, unspecified F31.9 ; Post-traumatic stress disorder F43.10 and Cannabis dependence F12.20 [address] [place] [address] Sep, [place] [id number] [place] [address] 48398- 7002 08 Sep, 2016 Suicidal behavior without attempted self-injury R46.89 [place] [id number] [place] [address] 16039- 4708 Sep, [place] [id number] [place] [address] 48631- 0541 Sep, Cannabis use disorder, moderate, dependence F12.20 ; Panic disorder with agoraphobia F40.01 ; Bipolar disorder, unspecified F31.9 and Anxiety, generalized F41.[address] 633891- 3096 Sep, Bipolar disorder, unspecified F31.9 ; PTSD (post-traumatic stress disorder) F43.10 ; Panic disorder with agoraphobia F40.01 and Cannabis use disorder, moderate, dependence F12.20 [id number] [place] [address] 47440- 6176 Sep, [id number] [place] [address] 73339- 3066 Sep, PTSD (post-traumatic stress disorder) F43.10 ; Cannabis use disorder, moderate, dependence F12.20 and Suicidal risk R45.89 [id number] [place] [address] 72391- 1159 Sep, [id number] [place] [address] 84387- 6029 Jul, Bipolar disorder, unspecified F31.9 ; PTSD (post-traumatic stress disorder) F43.10 and Panic disorder with agoraphobia F40.01 [id number] [place] [address] 03838- 9022 13 Jul, 2016 Obstructive sleep apnea syndrome G47.33 ; Moderate persistent asthma without complication J45.40 and Cigarette nicotine dependence with other nicotine-induced disorder F17.[address] [place] [address]- 5751 05 Jul, 2016 [facility] [id number] [place] [address] 83197- 5424 Jul, [facility] [id number] [place] [address] 11242- 0201 May, [facility] [id number] [place] [address] 19535- 5218 May, [facility] [id number] [place] [address] 14938- 2641 May, [facility] [id number] [place] [address] 05447- 1236 Apr, [place] [id number] [place] [address] 61747- 4982 Apr, Bipolar disorder, unspecified F31.9 ; PTSD (post-traumatic stress disorder) F43.10 ; Panic disorder with agoraphobia F40.01 and Cannabis use disorder, moderate, dependence F12.20 [address] [id number] [place] [address] 21817- 3089 Mar, Uncomplicated asthma, unspecified asthma severity J45.909 [place] [id number] [place] [address] 67878- 5691 Mar, [place] [id number] [place] [address] 98788- 7186 Mar, Moderate persistent asthma without complication J45.40 ; Gastroesophageal reflux disease without esophagitis K21.9 and Cigarette nicotine dependence with other nicotine-induced disorder F17.218 [place] [id number] [place] [address] 21394- 3724 Feb, [place] [id number] [place] [address] 40308- 4351 Jan, Bipolar disorder, unspecified F31.9 ; PTSD (post-traumatic stress disorder) F43.10 ; Panic disorder with agoraphobia F40.01 and Cannabis use disorder, moderate, dependence F12.20 [facility] [address], [place] [address]- 4761 December, [facility] [id number] [place] [address] 34977- 4050 Nov, [facility] [address], [place] [address]- 9958 Nov, Bipolar disorder, unspecified F31.9 ; PTSD (post-traumatic stress disorder) F43.10 ; Panic disorder with agoraphobia F40.01 and Cannabis use disorder, moderate, dependence F12.20 [address] [place] [id number] [place] [address] 62345- 2346 Oct, [facility] [id number] [place] [address] 39728- 0370 Oct, [place] [id number] [place] [address] 15216- 5853 Sep, [facility] [id number] [place] [address] 03841- 7099 Sep, Bipolar disorder, unspecified F31.9 ; PTSD (post-traumatic stress disorder) F43.10 ; Panic disorder with agoraphobia F40.01 and Cannabis use disorder, moderate, dependence F12.20 [address] [place] [address]- 3123 Aug, [facility] [address] [address]- 4476 Aug, [facility] [address] [address]- 4515 Aug, Bipolar disorder, unspecified F31.9 ; PTSD (post-traumatic stress disorder) F43.10 ; Panic disorder with agoraphobia F40.01 and Cannabis use disorder, moderate, dependence F12.20 [facility] [address] [address]- 5528 Jul, [facility] [id number] [address]- 5146 Apr, GERD (gastroesophageal reflux disease) 530.81 and Internal hemorrhoids 455.0 [facility] [id number] [place] [address] 36692- 6596 Feb, Rectal bleeding 569.3 and Hemorrhoids 455.6 [facility] [id number] [place] [address] 66348- 9296 Jan, Sinusitis 473.9 and Otitis media 382.9 [facility] [id number] [place] [address] 26132- 5896 December, [facility] [id number] [place] [address] 34380- 1716 Nov, [facility] [id number] [place] [address] 21408- 7806 Nov, [facility] [id number] [place] [address] 27209- 8176 Oct, [facility] [id number] [place] [address] 37758- 8286 Oct, [facility] [id number] [place] [address] 58110- 8606 Sep, [facility] [address] [address]- 6026 Sep, [facility] [id number] [place] [address] 49469- 0236 Aug, [facility] [id number] [place] [address] 08134- 2456 Aug, [facility] [id number] [place] [address] 35550- 1936 Jul, [facility] [address], [place] [address]- 5666 Jul, [facility] [id number] [place] [address] 82024- 8610 Jul, [facility] [place] [facility] [address] [id number] [place] [address]- 0379 Jul, [facility] [place] [facility] [address] [id number] [place] [address]- 0509 Jul, [facility] [place] [facility] [address] [facility] [id number] [place] [address]- 3900 Jul, [facility] [place] [facility] [address] [id number] [place] [address]- 5228 Jul, [facility] [place] [facility] [address] [facility] [id number] [place] [address]- 4070 Jul, [facility] [place] [facility] [address] [facility] [id number] [place] [address]- 6146 Jun, [facility] [place] [facility] [address] [facility] [id number], [place] [address]- 1789 Jun, [facility] [place] [facility] [address] [id number] [address]- 8046 Jun, [facility] [place] [facility] [address] [facility] [id number] [address]- 9502 Jun, [facility] [place] [facility] [address] [facility] [id number], [place] [address]- 9525 May, [facility] [place] [facility] [address] [facility] [id number] [address]- 3982 May, [facility] [place] [facility] [address] [id number] [address]- 4847 May, [facility] [place] [facility] [address] [id number][place] [address]- 1357 May, [facility] [place] [facility] [address] [facility] [id number] [address]- 5942 Apr, [facility] [place] [facility] [address] [facility] [id number] [address]- 4072 Apr, [facility] [place] [facility] [address] [id number] [place] [address]- 2648 Apr, [facility] [place] [facility] [address] [id number] [place] [address]- 0591 Apr, [facility] [place] [facility] [address] [id number] [place] [address]- 6308 Mar, [facility] [place] [facility] [address] [id number] [place] [address]- 8342 Mar, [facility] [place] [facility] [address] [id number] [place] [address]- 6679 Mar, [facility] [place] [facility] [address] [id number] [place] [address]- 3113 Mar, [facility] [place] [facility] [address] [id number] [place] [address]- 3677 December, [facility] [place] [facility] [address] [id number] [place] [address]- 8601 December, [facility] [place] [facility] [address] [id number] [place] [address]- 4298 Nov, [facility] [place] [facility] [address] [id number] [place] [address]- 0156 Nov, [facility] [place] [facility] [address] [id number] [place] [address]- 4140 Sep, [facility] [place] [facility] [address] [id number] [place] [address]- 0687 Sep, [facility] [place] [facility] [address] [id number] [place] [address]- 8232 Sep, [facility] [place] [facility] [address] [id number] [place] [address]- 3196 Sep, [facility] [place] [facility] [address] [id number] [place] [address]- 6553 Aug, [facility] [place] [facility] [address] [id number] [place] [address]- 2546 Jul, [facility] [place] [facility] [address] [id number] [place] [address]- 8293 Jul, [facility] [place] [facility] [address] [id number] [place] [address]- 0430 Jun, [facility] [place] [facility] [address] [id number] [place] [address]- 2920 Jun, [facility] [place] [facility] [address] [id number] [place] [address]- 6364 May, [facility] [place] [facility] [address] [id number] [place] [address]- 1714 May, [facility] [place] [facility] [address] [id number] [place] [address]- 3182 May, [facility] [place] [facility] [address] [id number] [place] [address]- 3850 17 Apr, 2013 [facility] [place] [facility] [address] [id number] [place] [address]- 6312 16 Apr, 2013 [facility] [place] [facility] [address] [id number] [place] [address]- 3655 09 Apr, 2013 [facility] [place] [facility] [address] [id number] [place] [address]- 2457 09 Apr, 2013 [facility] [place] [facility] [address] [id number] [place] [address]- 8890 Mar, [facility] [place] [facility] [address] [id number] [place] [address]- 3872 Mar, [facility] [place] [facility] [address] [id number] [place] [address]- 4588 December, [facility] [place] [facility] [address] [id number] [place] [address]- 0837 Oct, [facility] [place] [facility] [address] [id number] [place] [address]- 0979 Oct, [facility] [place] [facility] [address] [id number] [place] [address]- 2546 10 Aug, 2012 [facility] [address] [id number] [place] [address]- 5016 17 Jul, 2012 [facility] [address] [id number] [place] [address]- 2546 17 Jul, 2012 [facility] [address] [id number] [place] [address]- 6716 13 Jul, 2012 [facility] [address] [id number] [place] [address]- 2236 13 Jul, 2012 [facility] [address] [id number] [place] [address]- 8866 14 Jun, 2012 [facility] [address] [id number] [place] [address]- 3586 14 Jun, 2012 [facility] [address] [id number] [place] [address]- 9046 14 Mar, 2012 [facility] [address] [id number] [place] [address]- 5606 16 Feb, 2012 [facility] [address] [id number] [place] [address]- 9866 16 Feb, 2012 [facility] [address] [id number] [place] [address] 15 Dec, 2011 [facility] [address] [id number] [place] [address] 17 Nov, 2011 [facility] [address] [id number] [place] [address] Oct, [facility] [place] [facility] [address] [id number] [place] [address] Oct, [facility] [address] [id number] [place] [address] Sep, [facility] [address] [id number] [place] [address] Sep, [facility] [address] [id number] [place] [address] Aug, [facility] [place] [facility] [address] [id number] [place] [address] Aug, [facility] [place] [facility] [address] [id number] [place] [address] Jul, [facility] [place] [facility] [address] [id number] [place] [address] Jul, [facility] [place] [facility] [address] [id number] [place] [address] Jul, [facility] [place] [facility] [address] [id number] [place] [address] Jun, [facility] [place] [facility] [address] [id number] [place] [address] May, [facility] [place] [facility] [address] [id number] [place] [address] Apr, [facility] [place] [facility] [address] [id number] [place] [address] Feb, [facility] [place] [facility] [address] [id number] [place] [address] Sep, [facility] [place] [facility] [address] [id number] [place] [address] Jul, [facility] [place] [facility] [address] [id number] [address] Jul, [facility] [place] [facility] [address] [id number] [place] [address] Jul, [facility] [place] [facility] [address] [id number] [place] [address] Jul, [facility] [place] [facility] [address] [id number] [place] [address] Jun, [facility] [facility] [address] [facility] [id number] [address] Feb, [facility] [address] [facility] [id number] [address] Jan, [facility] [address] [facility] [id number], [place] [address] Feb, [facility] [address] [facility] [id number][place] [address] Jul, IMMUNIZATIONS No Known Immunizations SOCIAL HISTORY Never Assessed REASON FOR VISIT Medication refills PLAN OF CARE VITAL SIGNS MEDICATIONS Medication Instructions Dosage Frequency Start Date End Date Duration Status Lexapro 10 MG Orally Once a day 1 tablet 24h 90 days Active Loxapine Succinate 10 mg TAKE 4 CAPSULES BY MOUTH AT BEDTIME 30 days Active Metoprolol Tartrate 25 MG Orally Twice a day 1 tablet 12h 90 days Active RESULTS No Results PROCEDURES No [...]
--- OUTSIDE RECORDS SUMMARY | 2018-05-13 11:34 | XMS REPORT ---
Author Author PETRA GARZON Organization [facility] Address [address] [place] [address] Care Team Providers Care Vegetable Cook Name Role Phone PETRA GARZON Unavailable PROBLEMS Type Condition ICD9-CM Code UBC77-MM Code Onset Dates Condition Status SNOMED Code Problem Obstructive sleep apnea syndrome G47.33 Active 50884583 Problem Cannabis dependence F12.20 Active 21956720 Problem Anxiety, generalized F41.1 Active 82030358 Problem Other chronic pain G89.29 Active 39341913 Problem Adjustment disorder with depressed mood F43.21 Active 75594121 Problem Chronic post-traumatic stress disorder (PTSD) F43.12 Active 785901273 Problem Post-traumatic stress disorder F43.10 Active 49544346 Problem Adjustment disorder with anxious mood F43.22 Active 18314611 Problem Adjustment disorder with mixed anxiety and depressed mood F43.23 Active 67130903 Problem Bipolar disorder, unspecified F31.9 Active 87349281 Problem Gastroesophageal reflux disease without esophagitis K21.9 Active 492195740 Problem Cannabis use disorder, moderate, dependence F12.20 Active 54017402 Problem Cigarette nicotine dependence with other nicotine-induced disorder F17.218 Active 67676054 Problem Panic disorder with agoraphobia F40.01 Active 76616368 Problem Moderate persistent asthma without complication J45.40 Active 470963330 ALLERGIES Substance Reaction Event Type Date Status Penicillin V Potassium Unknown Drug Allergy Jan, Active Advair Diskus Unknown Drug Allergy Jan, Active ENCOUNTERS Encounter Location Date Diagnosis [facility] [address] [facility] [id number] [address] Jan, Low back pain M54.5 ; Moderate persistent asthma without complication J45.40 and Other chronic pain G89.29 [facility] [address] [facility] [id number] [address] Jan, Moderate persistent asthma without complication J45.40 ; Low back pain M54.5 ; Other chronic pain G89.29 ; Gastroesophageal reflux disease without esophagitis K21.9 and Cigarette nicotine dependence with other nicotine-induced disorder F17.218 [place] [address] [place] [id number] [place] [id number] December, Bipolar disorder, unspecified F31.9 ; Panic disorder with agoraphobia F40.01 ; Cannabis use disorder, moderate, dependence F12.20 and Chronic post-traumatic stress disorder (PTSD) F43.12 [place] [address] [id number] [place] [address] 60529- 9570 December, [place] [address] 25968- 3446 December, [place] [address] 27604- 6012 Nov, [place] [address] 631001- 5616 Oct, Bipolar disorder, unspecified F31.9 ; Chronic post- traumatic stress disorder (PTSD) F43.12 ; Panic disorder with agoraphobia F40.01 and Cannabis use disorder, moderate, dependence F12.20 [place] [id number] [place] [address] 59860- 6052 Sep, [place] [id number] [place] [address] 39536- 9224 Sep, [place] [id number] [place] [address] 84939- 3517 Aug, [place] [address] [id number] [place] [address] 01754- 0090 Aug, Cannabis use disorder, moderate, dependence F12.20 ; Panic disorder with agoraphobia F40.01 and Bipolar affective disorder, currently depressed, moderate F31.32 [place] [id number] [place] [address] 55185- 3963 May, Diarrhea of presumed infectious origin A09 and Nausea and vomiting, intractability of vomiting not specified, unspecified vomiting type R11.2 [place] [id number] [place] [address] 49807- 0716 Apr, [place] [address] [place] 329113- 5716 Mar, Nausea R11.0 and Gastroenteritis K52.9 [place] [address] 43218- 2734 Mar, Gastroesophageal reflux disease without esophagitis K21.9 [place] [address] 28638- 8962 Mar, Gastroesophageal reflux disease without esophagitis K21.9 [place] [address] 20471- 1651 Mar, [place] [address] 93814- 2945 Mar, [place] [address] 71805- 6845 Mar, [place] [address] 26476- 1474 Feb, Acute pain of right shoulder M25.511 and Muscle spasm M62.838 [place] [address] 39059- 7431 Feb, Acute labyrinthitis, unspecified laterality H83.09 [place] [id number] [place] [address] 36443- 6711 December, [place] [address] 83379- 5526 December, [place] [address] 97553- 4697 December, Cannabis use disorder, moderate, dependence F12.20 ; Anxiety , generalized F41.1 ; Adjustment disorder with mixed anxiety and depressed mood F43.23 and Chronic post-traumatic stress disorder (PTSD) F43.12 [place] [address] [address] 3[address] December, [place] [address] [id number] [place] [id number] [address] December, [place] [id number] [place] [address] 44116- 5931 Nov, Acute nasopharyngitis J00 [place] [id number] [place] [address] 96603- 6029 Nov, Cannabis use disorder, moderate, dependence F12.20 ; Anxiety , generalized F41.1 ; Adjustment disorder with mixed anxiety and depressed mood F43.23 and Chronic post-traumatic stress disorder (PTSD) F43.12 [place] [id number] [place] [address] 34644- 3702 Nov, Cannabis use disorder, moderate, dependence F12.20 ; Anxiety , generalized F41.1 ; Adjustment disorder with mixed anxiety and depressed mood F43.23 and Chronic post-traumatic stress disorder (PTSD) F43.12 [place] [id number] [place] [address] 21060- 9628 Oct, Diarrhea, unspecified R19.7 ; Vomiting, unspecified R11.10 and Viral gastroenteritis A08.4 [place] [id number] [place] [address] 27564- 2457 Oct, Bipolar disorder, unspecified F31.9 ; Panic disorder with agoraphobia F40.01 ; Cannabis use disorder, moderate, dependence F12.20 ; Cigarette nicotine dependence with other nicotine-induced disorder F17.218 ; Anxiety, generalized F41.1 ; Post-traumatic stress disorder F43.10 and Adjustment disorder with mixed anxiety and depressed mood F43.23 [place] [id number] [place] [address] 10950- 5700 Oct, Bipolar disorder, unspecified F31.9 ; Chronic post- traumatic stress disorder (PTSD) F43.12 ; Panic disorder with agoraphobia F40.01 and Cannabis use disorder, moderate, dependence F12.20 [place] [address] [address] 5757 Oct, Bipolar disorder, unspecified F31.9 ; Panic disorder with agoraphobia F40.01 ; Cannabis use disorder, moderate, dependence F12.20 ; Cigarette nicotine dependence with other nicotine-induced disorder F17.218 ; Anxiety, generalized F41.1 ; Post-traumatic stress disorder F43.10 and Adjustment disorder with mixed anxiety and depressed mood F43.23 [place] [id number] [place] [address] 01072- 4218 14 Oct, 2016 Viral gastroenteritis A08.4 [place] [id number] [place] [address] 72207- 7694 09 Oct, 2016 Anxiety, generalized F41.1 ; Post-traumatic stress disorder F43.10 ; Adjustment disorder with depressed mood F43.21 and Adjustment disorder with anxious mood F43.22 [place] [id number] [place] [address] 72960- 0040 07 Oct, 2016 Panic disorder with agoraphobia F40.01 ; Cannabis use disorder, moderate, dependence F12.20 ; Bipolar disorder, unspecified F31.9 ; Cigarette nicotine dependence with other nicotine-induced disorder F17.218 ; Adjustment disorder with anxious mood F43.22 ; Anxiety, generalized F41.1 ; Post -traumatic stress disorder F43.10 and Cannabis dependence F12.20 [place] [id number] [place] [address] 95013- 9574 Oct, Bipolar disorder, unspecified F31.9 and Chronic post- traumatic stress disorder (PTSD) F43.12 [place] [id number] [place] [address] 65481- 4238 Oct, Bipolar disorder, unspecified F31.9 and Chronic post- traumatic stress disorder (PTSD) F43.12 [place] [id number] [place] [address] 00378- 9995 Sep, Bipolar disorder, unspecified F31.9 ; Panic disorder with agoraphobia F40.01 ; PTSD (post-traumatic stress disorder) F43.10 ; Cannabis use disorder, moderate, dependence F12.20 ; Cannabis dependence F12.20 and Anxiety, generalized F41.1 [place] [id number] [place] [id number] Sep, Cannabis use disorder, moderate, dependence F12.20 ; Anxiety , generalized F41.1 and Adjustment disorder with mixed anxiety and depressed mood F43.23 [place] [address] [place] [id number]- 4267 15 Sep, 2016 Bipolar disorder, unspecified F31.9 ; Panic disorder with agoraphobia F40.01 ; PTSD (post-traumatic stress disorder) F43.10 ; Cannabis use disorder, moderate, dependence F12.20 ; Cannabis dependence F12.20 and Anxiety, generalized F41.1 [place] [id number] [place] [address] 25364- 3152 10 Sep, 2016 Bipolar disorder, unspecified F31.9 ; Panic disorder with agoraphobia F40.01 ; PTSD (post-traumatic stress disorder) F43.10 ; Cannabis use disorder, moderate, dependence F12.20 ; Cannabis dependence F12.20 and Anxiety, generalized F41.1 [place] [id number] [place] [address] 12990- 4332 Sep, Bipolar disorder, unspecified F31.9 ; Post-traumatic stress disorder F43.10 and Cannabis dependence F12.20 [place] [address] [place] [id number] Sep, [place] [id number] [place] [address] Sep, Suicidal behavior without attempted self-injury R46.89 [place] [address] [id number] [place] [address] 1404 Sep, [place] [address] [address] [id number] [place] [address] 0849 07 Sep, 2016 Cannabis use disorder, moderate, dependence F12.20 ; Panic disorder with agoraphobia F40.01 ; Bipolar disorder, unspecified F31.9 and Anxiety, generalized F41.1 [place] [id number] [place] [address] 33176- 7999 07 Sep, 2016 Bipolar disorder, unspecified F31.9 ; PTSD (post-traumatic stress disorder) F43.10 ; Panic disorder with agoraphobia F40.01 and Cannabis use disorder, moderate, dependence F12.20 [place] [address] 58680- 0918 Sep, [place] [address] 84140- 5536 Sep, PTSD (post-traumatic stress disorder) F43.10 ; Cannabis use disorder, moderate, dependence F12.20 and Suicidal risk R45.[address] 68306- 3997 Sep, [place] [address] 72511- 0197 Jul, Bipolar disorder, unspecified F31.9 ; PTSD (post-traumatic stress disorder) F43.10 and Panic disorder with agoraphobia F40.01 [place] [address] 41752- 4636 Jul, Obstructive sleep apnea syndrome G47.33 ; Moderate persistent asthma without complication J45.40 and Cigarette nicotine dependence with other nicotine-induced disorder F17.218 [place] [address] [id number] [place] [address] 84856- 1612 Jul, [place] [address] [address] [id number] [place] [address] 39942- 0673 Jul, [place] [address] 74737- 2710 May, [place] [address] 87545- 5465 May, [place] [address] [place] [id number]- 2546 May, [place] [id number] [place] [address] 58956- 2456 Apr, [place] [address] [address] [id number] [place] [address] 22978- 4025 Apr, Bipolar disorder, unspecified F31.9 ; PTSD (post-traumatic stress disorder) F43.10 ; Panic disorder with agoraphobia F40.01 and Cannabis use disorder, moderate, dependence F12.20 [place] [address] [id number] [place] [address] 00105- 6723 Mar, Uncomplicated asthma, unspecified asthma severity J45.909 [place] [address] [address] [id number] [place] [address] 70611- 2996 Mar, [place] [address] [address] [id number] [place] [address] 51621- 5603 Mar, Moderate persistent asthma without complication J45.40 ; Gastroesophageal reflux disease without esophagitis K21.9 and Cigarette nicotine dependence with other nicotine-induced disorder F17.218 [place] [id number] [place] [address] 71991- 8026 Feb, [place] [address] [id number] [place] [address] 67227- 9478 Jan, Bipolar disorder, unspecified F31.9 ; PTSD (post-traumatic stress disorder) F43.10 ; Panic disorder with agoraphobia F40.01 and Cannabis use disorder, moderate, dependence F12.20 [place] [address] [address]- 7182 December, [place] [address] [place] [address] [id number] [place] [address] 53820- 0367 Nov, [place] [address] [place] [address] 21032- 4062 Nov, Bipolar disorder, unspecified F31.9 ; PTSD (post-traumatic stress disorder) F43.10 ; Panic disorder with agoraphobia F40.01 and Cannabis use disorder, moderate, dependence F12.20 [place] [address] [address] [id number] [place] [address] 58457- 3263 Oct, [place] [address] [place] [address] [id number] [place]- 1388 Oct, [place] [address] [place] [address] [id number] [place] [address] 30682- 0081 Sep, [place] [address] 35439- 3765 Sep, Bipolar disorder, unspecified F31.9 ; PTSD (post-traumatic stress disorder) F43.10 ; Panic disorder with agoraphobia F40.01 and Cannabis use disorder, moderate, dependence F12.20 [place] [address] [id number] [place] [address] 23651- 4321 Aug, [place] [address] 24843- 7030 Aug, [place] [address] [place] [address] [id number] [place] [address] 03819- 9717 Aug, Bipolar disorder, unspecified F31.9 ; PTSD (post-traumatic stress disorder) F43.10 ; Panic disorder with agoraphobia F40.01 and Cannabis use disorder, moderate, dependence F12.20 [place] [address] [place] [address] [id number] [place] [address] 00836- 9219 Jul, [place] [address] 82969- 8515 24 Apr, 2015 GERD (gastroesophageal reflux disease) 530.81 and Internal hemorrhoids 455.[address] 24136- 4617 Feb, Rectal bleeding 569.3 and Hemorrhoids 455.6 [place] [id number] [place] [address] 09812- 2828 Jan, Sinusitis 473.9 and Otitis media 382.9 [place] [address] [id number] [place] [address]- 3249 December, [facility] [place] [facility] [address] [id number] [place] [address]- 2955 Nov, [facility] [place] [facility] [address] [id number] [place] [address]- 7371 Nov, [facility] [place] [facility] [address] [id number] [place] [address]- 1462 Oct, [facility] [place] [facility] [address] [id number] [place] [address]- 9454 Oct, [facility] [place] [facility] [address] [id number] [place] [address]- 7534 Sep, [facility] [place] [facility] [address] [id number] [place] [address]- 8914 Sep, [facility] [place] [facility] [address] [id number] [place] [address]- 6825 Aug, [facility] [place] [facility] [address] [id number] [place] [address]- 0958 Aug, [facility] [place] [facility] [address] [id number] [place] [address]- 8046 Jul, [facility] [place] [facility] [address] [id number] [place] [address]- 5316 Jul, [facility] [place] [facility] [address] [id number] [place] [address]- 0339 Jul, [facility] [place] [facility] [address] [id number] [place] [address]- 5065 Jul, [facility] [place] [facility] [address] [id number] [place] [address]- 0918 Jul, [facility] [place] [facility] [address] [id number] [place] [address]- 7607 Jul, [facility] [place] [facility] [address] [id number] [address]- 0316 Jul, [facility] [place] [facility] [address] [id number] [place] 0041 Jul, [facility] [place] [facility] [address] [id number] [place] [address]- 1958 Jun, [facility] [place] [facility] [address] [id number] [place] [address]- 3726 Jun, [facility] [place] [facility] [address] [id number] [place] [address]- 8149 Jun, [facility] [place] [facility] [address] [id number] [place] 3678 Jun, [facility] [place] [facility] [address] [id number] [place] [address]- 5502 May, [facility] [place] [facility] [address] [id number] [place] [address]- 4659 May, [facility] [place] [facility] [address] [id number] [place] [address]- 3288 May, [facility] [place] [facility] [address] [id number] [place] [address]- 6537 May, [facility] [place] [facility] [address] [id number] [place] [address]- 0192 Apr, [facility] [place] [facility] [address] [id number] [address]- 4306 Apr, [facility] [place] [facility] [address] [id number] [address]- 7840 Apr, [facility] [place] [facility] [address] [id number] [place] [address]- 9116 Apr, [facility] [place] [facility] [address] [id number] [place] [address]- 2267 Mar, [facility] [place] [facility] [address] [id number] [place] [address]- 7032 Mar, [facility] [place] [facility] [address] [id number] [place] [address]- 5986 Mar, [facility] [address] [id number] [place] [address]- 7206 Mar, [facility] [place] [facility] [address] [id number] [place] [address]- 1166 December, [facility] [place] [facility] [address] [id number] [place] [address]- 4426 December, [facility] [place] [facility] [address] [id number] [place] [address]- 0539 Nov, [facility] [place] [facility] [address] [id number] [place] [address]- 4194 Nov, [facility] [place] [facility] [address] [id number] [place] [address]- 6316 Sep, [facility] [place] [facility] [address] [id number] [place] [address]- 7838 Sep, [facility] [place] [facility] [address] [id number] [place] [address]- 0691 Sep, [facility] [place] [facility] [address] [facility] [id number] [place] [address]- 9176 Sep, [facility] [place] [facility] [address] [facility] [id number] [place] [address]- 8560 Aug, [facility] [place] [facility] [address] [id number] [place] [address]- 7456 Jul, [facility] [place] [facility] [address] [id number] [place] [address]- 7326 Jul, [facility] [place] [facility] [address] [id number] [place] [address]- 3146 Jun, [facility] [place] [facility] [address] [id number] [place] [address]- 2546 Jun, [facility] [place] [facility] [address] [id number] [place] [address]- 2868 18 May, 2013 [facility] [place] [facility] [address] [id number] [place] [address]- 9293 18 May, 2013 [facility] [place] [facility] [address] [id number] [place] [address]- 9790 07 May, 2013 [facility] [place] [facility] [address] [id number] [place] [address]- 1473 17 Apr, 2013 [facility] [place] [facility] [address] [id number] [place] [address]- 2481 16 Apr, 2013 [facility] [place] [facility] [address] [id number] [place] [address]- 8157 Apr, [facility] [place] [facility] [address] [id number] [place] [address]- 5968 Apr, [facility] [place] [facility] [address] [id number] [place] [address]- 9774 Mar, [facility] [place] [facility] [address] [id number] [place] [address]- 2272 Mar, [facility] [place] [facility] [address] [id number] [place] [address]- 8058 December, [facility] [place] [facility] [address] [id number] [place] [address]- 1073 Oct, [facility] [place] [facility] [address] [id number] [address]- 7749 Oct, [facility] [place] [facility] [address] [id number] [address]- 2744 Aug, [facility] [place] [facility] [address] [id number] [place] [address]- 4967 Jul, [facility] [place] [facility] [address] [id number] [place] [address]- 6282 Jul, [facility] [place] [facility] [address] [id number] [place] [address]- 5585 Jul, [facility] [place] [facility] [address] [id number] [place] [address]- 9533 13 Jul, 2012 [facility] [address] [id number] [place] [address]- 6291 14 Jun, 2012 [facility] [place] [facility] [address] [id number] [place] [address]- 7483 14 Jun, 2012 [facility] [address] [id number] [place] [address]- 2882 14 Mar, 2012 [facility] [place] [facility] [address] [id number] [place] [address]- 9916 16 Feb, 2012 [facility] [address] [id number] [place] [address]- 4997 16 Feb, 2012 [facility] [place] [facility] [address] [id number] [place] [address]- 6694 December, [facility] [address] [id number] [place] [address]- 5686 17 Nov, 2011 [facility] [address] [id number] [place] [address]- 2851 23 Oct, 2011 [facility] [address] [id number] [place] [address]- 6231 Oct, [facility] [address] [id number] [place] [address]- 0093 09 Sep, 2011 [facility] [address] [id number] [place] [address]- 9950 Sep, [facility] [place] [facility] [address] [id number] [place] [address]- 9288 Aug, [facility] [place] [facility] [address] [id number] [place] [address]- 7687 Aug, [facility] [place] [facility] [address] [id number] [place] [address] 22 Jul, 2011 [facility] [place] [facility] [address] [id number] [place] [address] Jul, [facility] [address] [id number] [address] Jul, [facility] [address] [facility] [id number] [place] [address] Jun, [facility] [address] [facility] [id number] [place] [address] May, [facility] [address] [facility] [id number] [place] [address] Apr, [facility] [address] [id number] [place] [address] Feb, [facility] [address] [facility] [id number] [place] [address] Sep, [facility] [address] [facility] [id number] [place] [address] Jul, [facility] [address] [facility] [id number] [address] Jul, [facility] [address] [facility] [id number] [place] [address] Jul, [facility] [address] [facility] [id number] [address] Jul, [facility] [address] [facility] [id number] [address] Jun, [facility] [address] [facility] [id number] [place] [address] Feb, [facility] [address] [facility] [id number] [address] Jan, [facility] [address] [facility] [id number] [address] Feb, [facility] [address] [facility] [id number] [address] Jul, IMMUNIZATIONS No Known Immunizations SOCIAL HISTORY Never Assessed REASON FOR VISIT Asthma - MPzoya GARNER, Back Pain PLAN OF CARE Activity Details Follow Up 6 Months Reason: VITAL SIGNS Height 76 in 2018-01-08 Weight 225.5 lbs 2018-01-08 Temperature 98.5 degrees Fahrenheit 2018-01-08 Heart Rate 100 bpm 2018-01-08 Respiratory Rate 18 2018-01-08 Oximetry on room air:96 % 2018-01-08 BMI 27.45 kg/m2 2018-01-08 Blood pressure systolic 130 mmHg 2018-01-08 Blood pressure diastolic 76 mmHg 2018-01-08 MEDICATIONS Medication Instructions Dosage Frequency Start Date End Date Duration Status Ibuprofen 800 MG TAKE 1 TABLET (800 MG) BY ORAL ROUTE 3 TIMES PER DAY WITH FOOD 90 Active Gabapentin 300 mg Orally 3 times a day for anxiety 1 capsule Active Zofran 4 MG Orally Once a day 1 tablet 24h May, 14 days Active Lexapro 10 mg Orally Once a day 1 tablet 24h 30 Active Singulair 10 MG 1 TABLET BY ORAL ROUTE 1 TIME PER DAY Active Advair Diskus 250-50 MCG/DOSE Inhalation Twice a day 1 puff 12h Active ProAir HFA 108 (90 Base) MCG/ACT 2 PUFFS NEEDED 4 TIMES A DAY, PRN WHEEZING INHALATION Active Nicorette 2 MG Mouth/Throat 4 times per day as needed. Follow package instructions for chew and park method 1 piece as needed Aug, Active Omeprazole 20 MG Orally Once a day 1 CAPSULE 24h 30 days Active Metoprolol Tartrate 25 MG Orally Twice a day for panic 1 tablet Jul, Active Loxapine Succinate 10 mg TAKE 4 CAPSULES BY MOUTH AT BEDTIME Active RESULTS No Results PROCEDURES No Known [...]
--- OUTSIDE RECORDS SUMMARY | 2018-05-13 11:34 | XMS REPORT ---
Author Author PETRA GARZON Organization [facility] Address [address] [place] [address] Care Team Providers Care House Detective Name Role Phone PETRA GARZON Unavailable PROBLEMS Type Condition ICD9-CM Code [id number] Code Onset Dates Condition Status SNOMED Code Problem Obstructive sleep apnea syndrome G47.33 Active 95669795 Problem Cannabis dependence F12.20 Active 54311647 Problem Anxiety, generalized F41.1 Active 65519760 Problem Other chronic pain G89.29 Active 57561899 Problem Adjustment disorder with depressed mood F43.21 Active 54713905 Problem Chronic post-traumatic stress disorder (PTSD) F43.12 Active 926332758 Problem Post-traumatic stress disorder F43.10 Active 09025912 Problem Adjustment disorder with anxious mood F43.22 Active 08448733 Problem Adjustment disorder with mixed anxiety and depressed mood F43.23 Active 70312696 Problem Bipolar disorder, unspecified F31.9 Active 35987203 Problem Gastroesophageal reflux disease without esophagitis K21.9 Active 011961410 Problem Cannabis use disorder, moderate, dependence F12.20 Active 15881966 Problem Cigarette nicotine dependence with other nicotine-induced disorder F17.218 Active 74737412 Problem Panic disorder with agoraphobia F40.01 Active 29367773 Problem Moderate persistent asthma without complication J45.40 Active [id number] ALLERGIES No Information ENCOUNTERS Encounter Location Date Diagnosis [facility] [address] [facility] [id number] [address] 04 Jan, 2018 Low back pain M54.5 ; Moderate persistent asthma without complication J45.40 and Other chronic pain G89.29 [facility] [address] [id number] [address] Jan, Moderate persistent asthma without complication J45.40 ; Low back pain M54.5 ; Other chronic pain G89.29 ; Gastroesophageal reflux disease without esophagitis K21.9 and Cigarette nicotine dependence with other nicotine-induced disorder F17.218 [address] [id number] [place] [address] 96895- 3800 December, Bipolar disorder, unspecified F31.9 ; Panic disorder with agoraphobia F40.01 ; Cannabis use disorder, moderate, dependence F12.20 and Chronic post-traumatic stress disorder (PTSD) F43.12 [place] [id number] [place] [address] 085152- 0551 December, [place] [id number] [place] [address] 00664- 7033 December, [place] [id number] [place] [address] 207029- 1851 Nov, [place] [id number] [place] [address] 20923- 4107 Oct, Bipolar disorder, unspecified F31.9 ; Chronic post- traumatic stress disorder (PTSD) F43.12 ; Panic disorder with agoraphobia F40.01 and Cannabis use disorder, moderate, dependence F12.20 [place] [id number] [place] [address] 79926- 1243 Sep, [place] [id number] [place] [address] 570090- 7121 Sep, [place] [id number] [place] [address] 03287- 1211 Aug, [place] [id number] [place] [id number] Aug, Cannabis use disorder, moderate, dependence F12.20 ; Panic disorder with agoraphobia F40.01 and Bipolar affective disorder, currently depressed, moderate F31.32 [place] [id number] [place] [address] 22505- 3336 May, Diarrhea of presumed infectious origin A09 and Nausea and vomiting, intractability of vomiting not specified, unspecified vomiting type R11.2 [id number] [place] [address]- 9565 Apr, [place] [id number] [place] [address] 06387- 0230 Mar, Nausea R11.0 and Gastroenteritis K52.9 [place] [id number] [place] [address] 56311- 9088 16 Mar, 2017 Gastroesophageal reflux disease without esophagitis K21.9 [place] [address] 551450- 0620 Mar, Gastroesophageal reflux disease without esophagitis K21.9 [place] [address] 86366- 3895 Mar, [place] [address] 56006- 7998 Mar, [place] [address] 93350- 2303 Mar, [place] [address] 93346- 5332 Feb, Acute pain of right shoulder M25.511 and Muscle spasm M62.838 [place] [id number] [place] [address] 61908- 5320 Feb, Acute labyrinthitis, unspecified laterality H83.09 [place] [address] 89614- 7983 December, [place] [id number] [place] [address] 89783- 3110 December, [place] [address] 82105- 6810 December, Cannabis use disorder, moderate, dependence F12.20 ; Anxiety , generalized F41.1 ; Adjustment disorder with mixed anxiety and depressed mood F43.23 and Chronic post-traumatic stress disorder (PTSD) F43.12 [place] [address] 81496- 6226 December, [place] [address] [address]- 4829 December, [place] [id number] [place] [id number] 7285 Nov, Acute nasopharyngitis J00 [place] [id number] [place] [address] 66969- 7238 Nov, Cannabis use disorder, moderate, dependence F12.20 ; Anxiety , generalized F41.1 ; Adjustment disorder with mixed anxiety and depressed mood F43.23 and Chronic post-traumatic stress disorder (PTSD) F43.12 [place] [id number] [place] [address] 90541- 1439 Nov, Cannabis use disorder, moderate, dependence F12.20 ; Anxiety , generalized F41.1 ; Adjustment disorder with mixed anxiety and depressed mood F43.23 and Chronic post-traumatic stress disorder (PTSD) F43.12 [place] [id number] [place] [address] 45198- 6069 Oct, Diarrhea, unspecified R19.7 ; Vomiting, unspecified R11.10 and Viral gastroenteritis A08.4 [place] [id number] [place] [address] 01079- 6560 Oct, Bipolar disorder, unspecified F31.9 ; Panic disorder with agoraphobia F40.01 ; Cannabis use disorder, moderate, dependence F12.20 ; Cigarette nicotine dependence with other nicotine-induced disorder F17.218 ; Anxiety, generalized F41.1 ; Post-traumatic stress disorder F43.10 and Adjustment disorder with mixed anxiety and depressed mood F43.23 [place] [id number] [place] [address] 90781- 1555 Oct, Bipolar disorder, unspecified F31.9 ; Chronic post- traumatic stress disorder (PTSD) F43.12 ; Panic disorder with agoraphobia F40.01 and Cannabis use disorder, moderate, dependence F12.20 [place] [id number] [place] [address] 18196- 6301 Oct, Bipolar disorder, unspecified F31.9 ; Panic disorder with agoraphobia F40.01 ; Cannabis use disorder, moderate, dependence F12.20 ; Cigarette nicotine dependence with other nicotine-induced disorder F17.218 ; Anxiety, generalized F41.1 ; Post-traumatic stress disorder F43.10 and Adjustment disorder with mixed anxiety and depressed mood F43.23 [id number] [place] [address] 756223- 3872 14 Oct, 2016 Viral gastroenteritis A08.4 [place] [id number] [place] [address] 51736- 4408 09 Oct, 2016 Anxiety, generalized F41.1 ; Post-traumatic stress disorder F43.10 ; Adjustment disorder with depressed mood F43.21 and Adjustment disorder with anxious mood F43.22 [place] [id number] [place] [address] 75203- 7617 07 Oct, 2016 Panic disorder with agoraphobia F40.01 ; Cannabis use disorder, moderate, dependence F12.20 ; Bipolar disorder, unspecified F31.9 ; Cigarette nicotine dependence with other nicotine-induced disorder F17.218 ; Adjustment disorder with anxious mood F43.22 ; Anxiety, generalized F41.1 ; Post -traumatic stress disorder F43.10 and Cannabis dependence F12.20 [place] [id number] [place] [address] 74478- 9521 Oct, Bipolar disorder, unspecified F31.9 and Chronic post- traumatic stress disorder (PTSD) F43.12 [place] [id number] [place] [address] 68897- 1401 Oct, Bipolar disorder, unspecified F31.9 and Chronic post- traumatic stress disorder (PTSD) F43.12 [place] [id number] [place] [address] Sep, Bipolar disorder, unspecified F31.9 ; Panic disorder with agoraphobia F40.01 ; PTSD (post-traumatic stress disorder) F43.10 ; Cannabis use disorder, moderate, dependence F12.20 ; Cannabis dependence F12.20 and Anxiety, generalized F41.1 [place] [address] [place] [address] 15051- 6576 Sep, Cannabis use disorder, moderate, dependence F12.20 ; Anxiety , generalized F41.1 and Adjustment disorder with mixed anxiety and depressed mood F43.23 [place] [id number] [place] [address] 75171- 2737 15 Sep, 2016 Bipolar disorder, unspecified F31.9 ; Panic disorder with agoraphobia F40.01 ; PTSD (post-traumatic stress disorder) F43.10 ; Cannabis use disorder, moderate, dependence F12.20 ; Cannabis dependence F12.20 and Anxiety, generalized F41.1 [place] [id number] [place] [address] 443422- 4802 10 Sep, 2016 Bipolar disorder, unspecified F31.9 ; Panic disorder with agoraphobia F40.01 ; PTSD (post-traumatic stress disorder) F43.10 ; Cannabis use disorder, moderate, dependence F12.20 ; Cannabis dependence F12.20 and Anxiety, generalized F41.1 [place] [id number] [place] [address] 79576- 9163 Sep, Bipolar disorder, unspecified F31.9 ; Post-traumatic stress disorder F43.10 and Cannabis dependence F12.20 [address] [address] [address] [place] [address] Sep, [place] [id number] [place] [address] 10990- 1435 Sep, Suicidal behavior without attempted self-injury R46.89 [place] [id number] [place] [address] 31342- 7227 Sep, [place] [id number] [place] [address]- 3941 07 Sep, 2016 Cannabis use disorder, moderate, dependence F12.20 ; Panic disorder with agoraphobia F40.01 ; Bipolar disorder, unspecified F31.9 and Anxiety, generalized F41.1 [place] [address] [place] [address]- 3519 Sep, Bipolar disorder, unspecified F31.9 ; PTSD (post-traumatic stress disorder) F43.10 ; Panic disorder with agoraphobia F40.01 and Cannabis use disorder, moderate, dependence F12.20 [place] [id number] [place] [address] 41698- 6513 Sep, [place] [id number] [place] [address] 00688- 5334 Sep, PTSD (post-traumatic stress disorder) F43.10 ; Cannabis use disorder, moderate, dependence F12.20 and Suicidal risk R45.89 [place] [id number] [place] [address] 14108- 0111 Sep, [place] [id number] [place] [address] 01649- 0306 Jul, Bipolar disorder, unspecified F31.9 ; PTSD (post-traumatic stress disorder) F43.10 and Panic disorder with agoraphobia F40.01 [place] [id number] [place] [address] 36058- 1680 Jul, Obstructive sleep apnea syndrome G47.33 ; Moderate persistent asthma without complication J45.40 and Cigarette nicotine dependence with other nicotine-induced disorder F17.218 [place] [address] [place] [address] 54376- 7696 Jul, [place] [id number] [place] [address] 66678- 4623 Jul, [facility] [id number] [place] [address] 09130- 4280 May, [place] [id number] [place] [address] 5904 May, [facility] [id number] [place] [address] 76373- 2233 May, [place] [id number] [place] [address] 25115- 4265 Apr, [place] [id number] [place] [address] 06444- 6077 Apr, Bipolar disorder, unspecified F31.9 ; PTSD (post-traumatic stress disorder) F43.10 ; Panic disorder with agoraphobia F40.01 and Cannabis use disorder, moderate, dependence F12.20 [place] [address] 35985- 8658 Mar, Uncomplicated asthma, unspecified asthma severity J45.909 [place] [address] 26434- 5919 Mar, [place] [id number] [place] [address] 80102- 4556 Mar, Moderate persistent asthma without complication J45.40 ; Gastroesophageal reflux disease without esophagitis K21.9 and Cigarette nicotine dependence with other nicotine-induced disorder F17.218 [place] [id number] [place] [address] 14264- 1524 Feb, [place] [address] 78581- 1610 Jan, Bipolar disorder, unspecified F31.9 ; PTSD (post-traumatic stress disorder) F43.10 ; Panic disorder with agoraphobia F40.01 and Cannabis use disorder, moderate, dependence F12.20 [place] [id number] [place] [address] 72288- 5166 December, [place] [id number] [place] [address] 88585- 2610 Nov, [place] [id number] [place] [address] 04147- 1083 Nov, Bipolar disorder, unspecified F31.9 ; PTSD (post-traumatic stress disorder) F43.10 ; Panic disorder with agoraphobia F40.01 and Cannabis use disorder, moderate, dependence F12.20 [place] [address] [place] [address]- 8972 Oct, [place] [id number] [place] [address] 83024- 6463 Oct, [place] [id number] [place] [address] 10189- 2230 Sep, [place] [address] 53477- 4347 Sep, Bipolar disorder, unspecified F31.9 ; PTSD (post-traumatic stress disorder) F43.10 ; Panic disorder with agoraphobia F40.01 and Cannabis use disorder, moderate, dependence F12.20 [place] [address] 62298- 3107 Aug, [place] [address] 19909- 8758 Aug, [place] [address] 99307- 4901 Aug, Bipolar disorder, unspecified F31.9 ; PTSD (post-traumatic stress disorder) F43.10 ; Panic disorder with agoraphobia F40.01 and Cannabis use disorder, moderate, dependence F12.20 [place] [id number] [place] [address] 75927- 4079 Jul, [place] [id number] [place] [address] 85776- 2654 Apr, GERD (gastroesophageal reflux disease) 530.81 and Internal hemorrhoids 455.0 [place] [address] 20607- 0146 Feb, Rectal bleeding 569.3 and Hemorrhoids 455.6 [place] [id number] [place] [address] 99182- 2360 Jan, Sinusitis 473.9 and Otitis media 382.9 [place] [address] 74284- 9584 December, [facility] [place] [facility] [address] [id number] [place] [address]- 4788 Nov, [facility] [place] [facility] [address] [id number] [place] [address]- 4732 Nov, [facility] [place] [facility] [address] [id number] [place] [address]- 1591 Oct, [facility] [place] [facility] [address] [id number] [place] [address]- 4988 Oct, [facility] [place] [facility] [address] [id number] [place] [address]- 6253 Sep, [facility] [place] [facility] [address] [id number] [place] [address]- 9606 Sep, [facility] [place] [facility] [address] [id number] [place] [address]- 7244 Aug, [facility] [place] [facility] [address] [id number] [place] [address]- 9252 Aug, [facility] [place] [facility] [address] [id number] [place] [address]- 2904 Jul, [facility] [place] [facility] [address] [id number] [place] [address]- 9088 Jul, [facility] [place] [facility] [address] [id number] [place] [address]- 9733 Jul, [facility] [place] [facility] [address] [id number] [place] [address]- 7553 Jul, [facility] [place] [facility] [address] [id number] [place] [address]- 3814 Jul, [facility] [place] [facility] [address] [id number] [place] [address]- 6457 Jul, [facility] [place] [facility] [address] [id number] 3797 Jul, [facility] [place] [facility] [address] [id number] [place] [address]- 9641 Jul, [facility] [place] [facility] [address] [id number] [place] [address]- 4833 Jun, [facility] [place] [facility] [address] [id number] [place] [address]- 4521 Jun, [facility] [place] [facility] [address] [facility] [id number] [place] [address]- 9432 Jun, [facility] [place] [facility] [address] [id number] [place] [address]- 9234 Jun, [facility] [place] [facility] [address] [id number] [place] [address]- 5766 May, [facility] [place] [facility] [address] [id number] [place] [address]- 9173 May, [facility] [place] [facility] [address] [facility] [id number] [place] [address]- 6887 May, [facility] [place] [facility] [address] [id number] [place] [address]- 6527 May, [facility] [place] [facility] [address] [facility] [id number] [place] [address]- 9058 Apr, [facility] [place] [facility] [address] [facility] [id number] [place] [address]- 6654 Apr, [facility] [place] [facility] [address] [id number] [address]- 8292 Apr, [facility] [place] [facility] [address] [id number] [place] [address]- 1794 Apr, [facility] [place] [facility] [address] [id number] [place] [address]- 2713 Mar, [facility] [place] [facility] [address] [id number] [place] [address]- 7159 Mar, [facility] [place] [facility] [address] [facility] [id number] [place] [address]- 3146 Mar, [facility] [place] [facility] [address] [id number] [place] [address]- 6786 Mar, [facility] [place] [facility] [address] [id number] [place] [address]- 5498 December, [facility] [place] [facility] [address] [id number] [place] [address]- 3332 December, [facility] [place] [facility] [address] [id number] [place] [address]- 6285 Nov, [facility] [place] [facility] [address] [id number] [place] [address]- 4307 Nov, [facility] [place] [facility] [address] [id number] [place] [address]- 8761 Sep, [facility] [place] [facility] [address] [id number] [place] [address]- 6852 Sep, [facility] [place] [facility] [address] [id number] [place] [address]- 1684 Sep, [facility] [place] [facility] [address] [id number] [place] [address]- 0462 Sep, [facility] [place] [facility] [address] [facility] [id number] [place] [address]- 4457 Aug, [facility] [place] [facility] [address] [id number] [place] [address]- 4326 Jul, [facility] [place] [facility] [address] [id number] [place] [address]- 7113 Jul, [facility] [place] [facility] [address] [id number] [place] [address]- 8679 Jun, [facility] [place] [facility] [address] [id number] [place] [address]- 8450 Jun, [facility] [place] [facility] [address] [id number] [place] [address]- 4056 May, [facility] [place] [facility] [address] [id number] [place] [address]- 8511 18 May, 2013 [facility] [place] [facility] [address] [id number] [place] [address]- 3116 07 May, 2013 [facility] [place] [facility] [address] [id number] [place] [address]- 1646 17 Apr, 2013 [facility] [place] [facility] [address] [id number] [place] [address] 2546 16 Apr, 2013 [facility] [place] [facility] [address] [id number] [place] [address] 2545 09 Apr, 2013 [facility] [place] [facility] [address] [id number] [place] [address]- 8597 Apr, [facility] [place] [facility] [address] [id number] [place] [address]- 4589 Mar, [facility] [place] [facility] [address] [id number] [place] [address]- 9782 Mar, [facility] [place] [facility] [address] [id number] [place] [address]- 8702 December, [facility] [place] [facility] [address] [id number] [place] [address]- 5737 Oct, [facility] [place] [facility] [address] [id number] [place] [address]- 6529 Oct, [facility] [place] [facility] [address] [id number] [place] [address]- 5189 Aug, [facility] [place] [facility] [address] [id number] [place] [address]- 0962 17 Jul, 2012 [facility] [place] [facility] [address] [id number] [place] [address]- 0363 17 Jul, 2012 [facility] [place] [facility] [address] [id number] [place] [address]- 6936 13 Jul, 2012 [facility] [place] [facility] [address] [id number] [place] [address]- 8575 13 Jul, 2012 [facility] [place] [facility] [address] [id number] [place] [address]- 2546 14 Jun, 2012 [facility] [address] [id number] [place] [address]- 1956 14 Jun, 2012 [facility] [address] [id number] [place] [address]- 2546 14 Mar, 2012 [facility] [address] [id number] [place] [address]- 2546 16 Feb, 2012 [facility] [address] [id number] [place] [address]- 2546 16 Feb, 2012 [facility] [address] [id number] [place] [address]- 1826 December, [facility] [address] [id number] [place] [address]- 2546 Nov, [facility] [address] [id number] [place] [address] Oct, [facility] [address] [id number] [place] [address] Oct, [facility] [address] [id number] [place] [address] Sep, [facility] [address] [id number] [place] [address] Sep, [facility] [address] [id number] [place] [address] Aug, [facility] [address] [id number] [place] [address] Aug, [facility] [address] [id number] [place] [address] Jul, [facility] [place] [facility] [address] [id number] [place] [address] Jul, [facility] [address] [id number] [place] [address] Jul, [facility] [place] [address] [address] Jun, [facility] [place] [address] [address] May, [facility] [place] [address] [address] Apr, [facility] [place] [address] [address] Feb, [facility] [place] [id number] [address] Sep, [facility] [place] [id number] [place] [address] 2017 Jul, [facility] [place] [address] [address] Jul, [facility] [place] [address] [address] Jul, [facility] [place] [address] [address] Jul, [facility] [place] [address] [address] Jun, [facility] [place], [facility] [id number] [address] Feb, [facility] [place] [address] [address] Jan, [facility], [place] [id number] [address] Feb, [facility], [place] [id number] [address] Jul, IMMUNIZATIONS No Known Immunizations SOCIAL HISTORY Never Assessed REASON FOR VISIT Xray (walk-in) MHill RT(R) PLAN OF CARE VITAL SIGNS MEDICATIONS Unknown Medications RESULTS Name Result Date Reference Range Xray : Spine, Lumbar 2-3 views (IN HOUSE) 2018-01-11 PROCEDURES Procedure Date Ordered Result Body Site X-RAY EXAM OF LOWER SPINE January 11, 2018 INSTRUCTIONS MEDICATIONS ADMINISTERED No Known Medications MEDICAL (GENERAL) HISTORY Type Description Date Medical History heartburn Medical History PTSD Medical History bi-polar Medical History asthma Medical History anxiety Medical History depression Medical History pneumonia 09/15/16 Medical History PTSD (post-traumatic stress disorder) Surgical History orthopedic surgery - right hand 1998 Surgical History fractured jaw Hospitalization History surgeries
--- OUTSIDE RECORDS SUMMARY | 2018-05-13 11:35 | XMS REPORT ---
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 Role Phone KORY CHAND Unavailable PROBLEMS Type Condition ICD9-CM Code [id number] Code Onset Dates Condition Status SNOMED Code Problem Obstructive sleep apnea syndrome G47.33 Active 25188578 Problem Cannabis dependence F12.20 Active 89864675 Problem Anxiety, generalized F41.1 Active 89170091 Problem Other chronic pain G89.29 Active 18090915 Problem Adjustment disorder with depressed mood F43.21 Active 97673654 Problem Chronic post-traumatic stress disorder (PTSD) F43.12 Active 793068220 Problem Post-traumatic stress disorder F43.10 Active 20684121 Problem Adjustment disorder with anxious mood F43.22 Active 56999326 Problem Adjustment disorder with mixed anxiety and depressed mood F43.23 Active 59048520 Problem Bipolar disorder, unspecified F31.9 Active 62048252 Problem Gastroesophageal reflux disease without esophagitis K21.9 Active 089855993 Problem Cannabis use disorder, moderate, dependence F12.20 Active 19987098 Problem Cigarette nicotine dependence with other nicotine-induced disorder F17.218 Active 22621850 Problem Panic disorder with agoraphobia F40.01 Active 28277543 Problem Moderate persistent asthma without complication J45.40 Active 201390915 ALLERGIES Substance Reaction Event Type Date Status Penicillin V Potassium Unknown Drug Allergy December, Active Advair Diskus Unknown Drug Allergy December, Active ENCOUNTERS Encounter Location Date Diagnosis [facility] [address] [facility] [id number] [address] Mar, [facility] [address] [id number] [address] Jan, Low back pain M54.5 ; Moderate persistent asthma without complication J45.40 and Other chronic pain G89.29 [facility] [id number] [place] [address] 66409- 2875 Jan, Moderate persistent asthma without complication J45.40 ; Low back pain M54.5 ; Other chronic pain G89.29 ; Gastroesophageal reflux disease without esophagitis K21.9 and Cigarette nicotine dependence with other nicotine-induced disorder F17.218 [place] [id number] [place] [address] 96711- 2972 December, Bipolar disorder, unspecified F31.9 ; Panic disorder with agoraphobia F40.01 ; Cannabis use disorder, moderate, dependence F12.20 and Chronic post-traumatic stress disorder (PTSD) F43.12 [place] [address] 304610- 0[address] December, [facility] [id number] [place] [address] 20557- 4590 December, [place] [id number] [place] [address] 05701- 8704 Nov, [facility] [id number] [place] [address] 06850- 7865 Oct, Bipolar disorder, unspecified F31.9 ; Chronic post- traumatic stress disorder (PTSD) F43.12 ; Panic disorder with agoraphobia F40.01 and Cannabis use disorder, moderate, dependence F12.20 [place] [id number] [place] [address] 29572- 2806 Sep, [facility] [id number] [place] [address] 65243- 4245 Sep, [facility] [id number] [place] [address] 14778- 6360 Aug, [place] [id number] [place] [address] 31262- 792 Aug, Cannabis use disorder, moderate, dependence F12.20 ; Panic disorder with agoraphobia F40.01 and Bipolar affective disorder, currently depressed, moderate F31.32 [place] [address] 33579- 5442 May, Diarrhea of presumed infectious origin A09 and Nausea and vomiting, intractability of vomiting not specified, unspecified vomiting type R11.2 [place] [address] 15033- 8699 Apr, [place] [address] 6[address]54- 4225 Mar, Nausea R11.0 and Gastroenteritis K52.9 [place] [address] 66870- 2428 Mar, Gastroesophageal reflux disease without esophagitis K21.9 [place] [address] 455959- 4566 Mar, Gastroesophageal reflux disease without esophagitis K21.9 [place] [address] 69274- 9556 Mar, [place] [address] 71158- 3083 Mar, [place] [address] 76417- 6035 Mar, [place] [address] 22583- 3583 Feb, Acute pain of right shoulder M25.511 and Muscle spasm M62.838 [place] [address] 82057- 3818 Feb, Acute labyrinthitis, unspecified laterality H83.09 [place] [address] 32079- 2563 December, [place] [address] 79361- 1206 December, [place] [address] 66153- 0195 December, Cannabis use disorder, moderate, dependence F12.20 ; Anxiety , generalized F41.1 ; Adjustment disorder with mixed anxiety and depressed mood F43.23 and Chronic post-traumatic stress disorder (PTSD) F43.12 [place] [id number] [place] [address] [address] December, [place] [id number] [place] [address] 05530- 2523 December, [place] [address] 70018- 9761 Nov, Acute nasopharyngitis J00 [place] [id number] [place] [address] 98345- 1849 Nov, Cannabis use disorder, moderate, dependence F12.20 ; Anxiety , generalized F41.1 ; Adjustment disorder with mixed anxiety and depressed mood F43.23 and Chronic post-traumatic stress disorder (PTSD) F43.12 [place] [id number] [place] [address] 37011- 8653 Nov, Cannabis use disorder, moderate, dependence F12.20 ; Anxiety , generalized F41.1 ; Adjustment disorder with mixed anxiety and depressed mood F43.23 and Chronic post-traumatic stress disorder (PTSD) F43.12 [place] [id number] [place] [address] 24812- 0676 Oct, Diarrhea, unspecified R19.7 ; Vomiting, unspecified R11.10 and Viral gastroenteritis A08.4 [place] [address] [place] [address] 82808- 0734 Oct, Bipolar disorder, unspecified F31.9 ; Panic disorder with agoraphobia F40.01 ; Cannabis use disorder, moderate, dependence F12.20 ; Cigarette nicotine dependence with other nicotine-induced disorder F17.218 ; Anxiety, generalized F41.1 ; Post-traumatic stress disorder F43.10 and Adjustment disorder with mixed anxiety and depressed mood F43.23 [place] [id number] [place] [address] 33413- 9617 Oct, Bipolar disorder, unspecified F31.9 ; Chronic post- traumatic stress disorder (PTSD) F43.12 ; Panic disorder with agoraphobia F40.01 and Cannabis use disorder, moderate, dependence F12.20 [place] [address] [place] [address] 45072- 0557 Oct, Bipolar disorder, unspecified F31.9 ; Panic disorder with agoraphobia F40.01 ; Cannabis use disorder, moderate, dependence F12.20 ; Cigarette nicotine dependence with other nicotine-induced disorder F17.218 ; Anxiety, generalized F41.1 ; Post-traumatic stress disorder F43.10 and Adjustment disorder with mixed anxiety and depressed mood F43.23 [place] [id number] [place] [address] 49942- 1677 14 Oct, 2016 Viral gastroenteritis A08.4 [place] [id number] [place] [address] 49191- 9840 09 Oct, 2016 Anxiety, generalized F41.1 ; Post-traumatic stress disorder F43.10 ; Adjustment disorder with depressed mood F43.21 and Adjustment disorder with anxious mood F43.22 [place] [id number] [place] [address] 43338- 2753 07 Oct, 2016 Panic disorder with agoraphobia F40.01 ; Cannabis use disorder, moderate, dependence F12.20 ; Bipolar disorder, unspecified F31.9 ; Cigarette nicotine dependence with other nicotine-induced disorder F17.218 ; Adjustment disorder with anxious mood F43.22 ; Anxiety, generalized F41.1 ; Post -traumatic stress disorder F43.10 and Cannabis dependence F12.20 [place] [address] [place] [address] 97150- 8075 Oct, Bipolar disorder, unspecified F31.9 and Chronic post- traumatic stress disorder (PTSD) F43.12 [place] [id number] [place] [address] 37664- 5526 Oct, Bipolar disorder, unspecified F31.9 and Chronic post- traumatic stress disorder (PTSD) F43.12 [place] [id number] [place] [address] 14332- 4207 28 Sep, 2016 Bipolar disorder, unspecified F31.9 ; Panic disorder with agoraphobia F40.01 ; PTSD (post-traumatic stress disorder) F43.10 ; Cannabis use disorder, moderate, dependence F12.20 ; Cannabis dependence F12.20 and Anxiety, generalized F41.1 [place] [id number] [place] [address] 71881- 0345 Sep, Cannabis use disorder, moderate, dependence F12.20 ; Anxiety , generalized F41.1 and Adjustment disorder with mixed anxiety and depressed mood F43.23 [place] [id number] [place] [address] 41629- 6198 15 Sep, 2016 Bipolar disorder, unspecified F31.9 ; Panic disorder with agoraphobia F40.01 ; PTSD (post-traumatic stress disorder) F43.10 ; Cannabis use disorder, moderate, dependence F12.20 ; Cannabis dependence F12.20 and Anxiety, generalized F41.1 [place] [id number] [place] [address] 81137- 7216 Sep, Bipolar disorder, unspecified F31.9 ; Panic disorder with agoraphobia F40.01 ; PTSD (post-traumatic stress disorder) F43.10 ; Cannabis use disorder, moderate, dependence F12.20 ; Cannabis dependence F12.20 and Anxiety, generalized F41.1 [place] [id number] [place] [address] 83204- 9418 Sep, Bipolar disorder, unspecified F31.9 ; Post-traumatic stress disorder F43.10 and Cannabis dependence F12.20 [place] [address] [place] [address] Sep, [place] [id number] [place] [address] 94336- 0159 08 Sep, 2016 Suicidal behavior without attempted self-injury R46.89 [place] [id number] [place] [address] 07303- 3829 Sep, [place] [id number] [place] [address] 11403- 5854 Sep, Cannabis use disorder, moderate, dependence F12.20 ; Panic disorder with agoraphobia F40.01 ; Bipolar disorder, unspecified F31.9 and Anxiety, generalized F41.1 [place] [id number] [place] [address] 41496- 3069 Sep, Bipolar disorder, unspecified F31.9 ; PTSD (post-traumatic stress disorder) F43.10 ; Panic disorder with agoraphobia F40.01 and Cannabis use disorder, moderate, dependence F12.20 [place] [id number] [place] [address] 07077- 9503 Sep, [address] 30295- 5698 Sep, PTSD (post-traumatic stress disorder) F43.10 ; Cannabis use disorder, moderate, dependence F12.20 and Suicidal risk R45.[address] 63917- 1903 Sep, [place] [id number] [place] [address] 70031- 9931 Jul, Bipolar disorder, unspecified F31.9 ; PTSD (post-traumatic stress disorder) F43.10 and Panic disorder with agoraphobia F40.01 [place] [id number] [place] [address] 61066- 4862 Jul, Obstructive sleep apnea syndrome G47.33 ; Moderate persistent asthma without complication J45.40 and Cigarette nicotine dependence with other nicotine-induced disorder F17.218 [place] [id number] [place] [address] 61100- 8836 Jul, [address] 85078- 6845 Jul, [place] [id number] [place] [address] 48049- 8618 May, [place] [address]- 2546 May, [place] [address] [place] [address] 55661- 4765 May, [place] [id number] [place] [address] 46183- 4174 Apr, [place] [id number] [place] [address] 99987- 9364 Apr, Bipolar disorder, unspecified F31.9 ; PTSD (post-traumatic stress disorder) F43.10 ; Panic disorder with agoraphobia F40.01 and Cannabis use disorder, moderate, dependence F12.20 [place] [id number] [place] [address] 27803- 3563 Mar, Uncomplicated asthma, unspecified asthma severity J45.909 [place] [id number] [place] [address] 60715- 7220 Mar, [place] [id number] [place] [address] 38333- 1880 Mar, Moderate persistent asthma without complication J45.40 ; Gastroesophageal reflux disease without esophagitis K21.9 and Cigarette nicotine dependence with other nicotine-induced disorder F17.218 [place] [id number] [place] [address] 12236- 9792 Feb, [place] [id number] [place] [address] 34166- 7170 Jan, Bipolar disorder, unspecified F31.9 ; PTSD (post-traumatic stress disorder) F43.10 ; Panic disorder with agoraphobia F40.01 and Cannabis use disorder, moderate, dependence F12.20 [place] [id number] [place] [address] 96353- 5768 December, [place] [id number] [place] [address] 47632- 9238 Nov, [place] [id number] [place] [address] 89985- 8096 Nov, Bipolar disorder, unspecified F31.9 ; PTSD (post-traumatic stress disorder) F43.10 ; Panic disorder with agoraphobia F40.01 and Cannabis use disorder, moderate, dependence F12.20 [place] [address] [place] [address] 7057 Oct, [place] [id number] [place] [address] 55664- 4033 Oct, [place] [id number] [place] [address] 11567- 8354 Sep, [place] [id number] [place] [address] 13579- 2295 Sep, Bipolar disorder, unspecified F31.9 ; PTSD (post-traumatic stress disorder) F43.10 ; Panic disorder with agoraphobia F40.01 and Cannabis use disorder, moderate, dependence F12.20 [place] [id number] [place] [address] 31991- 6920 Aug, [place] [id number] [place] [address] 79885- 1234 Aug, [place] [id number] [place] [address] 14191- 5743 Aug, Bipolar disorder, unspecified F31.9 ; PTSD (post-traumatic stress disorder) F43.10 ; Panic disorder with agoraphobia F40.01 and Cannabis use disorder, moderate, dependence F12.20 [place] [id number] [place] [address] 41823- 0368 Jul, [place] [id number] [place] [address] 21621- 0635 Apr, GERD (gastroesophageal reflux disease) 530.81 and Internal hemorrhoids 455.0 [place] [id number] [place] [address] 87194- 1354 Feb, Rectal bleeding 569.3 and Hemorrhoids 455.6 [place] [address] [place] [address]- 2320 Jan, Sinusitis 473.9 and Otitis media 382.9 [facility] [id number] [address]- 5426 December, [facility] [place] [facility] [address] [facility] [id number] [place] [address]- 1781 Nov, [facility] [place] [facility] [address] [facility] [id number] [place] [address], [place] [address]- 4775 Nov, [facility] [place] [facility] [address] [facility] [id number] [place] [address], [place] [address]- 2366 Oct, [facility] [place] [facility] [id number] [place] [address], [place] [address]- 0367 Oct, [facility] [id number] [place] [address], [place] [address]- 6316 Sep, [facility] [id number] [place] [address], [place] [address]- 6484 Sep, [facility] [address] [place] [address]- 0016 Aug, [facility] [id number] [place] [address]- 4236 Aug, [facility] [place] [facility] [address] [place] [address]- 9197 Jul, [facility] [place] [facility] [id number] [address]- 8325 Jul, [facility] [place] [facility] [id number] [address]- 0125 Jul, [facility] [place] [facility] [address] [place] [address]- 1402 Jul, [facility] [place] [facility] [id number] [address]- 3025 Jul, [facility] [place] [facility] [address] [address]- 5552 Jul, [facility] [place] [facility] [address] [id number] [place] 2567 Jul, [facility] [place] [facility] [address] [id number] [place] [address]- 3702 Jul, [facility] [place] [facility] [address] [facility] [id number] [place] 1383 Jun, [facility] [place] [facility] [address] [id number] [place] [address]- 8802 Jun, [facility] [place] [facility] [address] [id number] [place] [address]- 7994 Jun, [facility] [place] [facility] [address] [id number] [place] [address]- 2655 Jun, [facility] [place] [facility] [address] [id number] [place] [address]- 4879 May, [facility] [place] [facility] [address] [id number] [address]- 9849 May, [facility] [place] [facility] [address] [id number] [address]- 8060 May, [facility] [place] [facility] [address] [id number] [address]- 2069 May, [facility] [place] [facility] [address] [id number] [address]- 7783 Apr, [facility] [place] [facility] [address] [id number] [address]- 6350 Apr, [facility] [place] [facility] [address] [id number] [address]- 7461 Apr, [facility] [place] [facility] [address] [id number] [address]- 2069 Apr, [facility] [place] [facility] [address] [id number] [address]- 5246 Mar, [facility] [place] [facility] [address] [id number] [place] [address]- 7027 Mar, [facility] [address] [id number] [place] [address]- 7825 Mar, [facility] [place] [facility] [address] [id number] [place] [address]- 2756 Mar, [facility] [place] [facility] [address] [id number] [place] [address]- 1416 December, [facility] [place] [facility] [address] [id number] [place] [address]- 5779 December, [facility] [place] [facility] [address] [id number] [place] [address]- 2765 Nov, [facility] [place] [facility] [address] [id number] [place] [address]- 8126 Nov, [facility] [place] [facility] [address] [id number] [place] [address]- 8314 Sep, [facility] [place] [facility] [address] [id number] [place] [address]- 2205 Sep, [facility] [place] [facility] [address] [id number] [place] [address]- 8922 Sep, [facility] [place] [facility] [address] [facility] [id number] [place] [address]- 6439 Sep, [facility] [place] [facility] [address] [id number] [place] [address]- 0643 Aug, [facility] [place] [facility] [address] [id number] [place] [address]- 0072 Jul, [facility] [place] [facility] [address] [id number] [place] [address]- 0266 Jul, [facility] [place] [facility] [address] [id number] [place] [address]- 5706 Jun, [facility] [place] [facility] [address] [id number] [place] [address]- 6617 Jun, [facility] [place] [facility] [address] [id number] [place] [address]- 7496 May, [facility] [place] [facility] [address] [id number] [place] [address]- 0225 18 May, 2013 [facility] [place] [facility] [address] [id number] [place] [address]- 6266 May, [facility] [place] [facility] [address] [id number] [place] [address]- 3471 17 Apr, 2013 [facility] [place] [facility] [address] [id number] [place] [address]- 5999 16 Apr, 2013 [facility] [place] [facility] [address] [id number] [place] [address]- 2243 Apr, [facility] [place] [facility] [address] [id number] [place] [address]- 3193 Apr, [facility] [place] [facility] [address] [id number] [place] [address]- 3262 Mar, [facility] [place] [facility] [address] [id number] [place] [address]- 0427 Mar, [facility] [place] [facility] [address] [id number] [place] [address]- 1836 December, [facility] [place] [facility] [address] [id number] [address]- 7782 Oct, [facility] [place] [facility] [address] [id number] [address]- 3689 Oct, [facility] [place] [facility] [address] [id number] [place] [address]- 7581 Aug, [facility] [place] [facility] [address] [id number] [address]- 5136 Jul, [facility] [place] [facility] [address] [id number] [place] [address]- 7540 Jul, [facility] [place] [facility] [address] [id number] [place] [address]- 6755 13 Jul, 2012 [facility] [address] [id number] [place] [address]- 6800 13 Jul, 2012 [facility] [place] [facility] [address] [id number] [place] [address]- 2965 14 Jun, 2012 [facility] [address] [id number] [place] [address]- 3622 14 Jun, 2012 [facility] [place] [facility] [address] [id number] [place] [address]- 8227 14 Mar, 2012 [facility] [address] [id number] [place] [address]- 7310 16 Feb, 2012 [facility] [place] [facility] [address] [id number] [place] [address]- 1472 16 Feb, 2012 [facility] [address] [id number] [place] [address]- 3972 15 Dec, 2011 [facility] [place] [facility] [address] [id number] [place] [address]- 6318 17 Nov, 2011 [facility] [place] [facility] [address] [id number] [place] [address]- 0664 23 Oct, 2011 [facility] [place] [facility] [address] [id number] [place] [address]- 6739 Oct, [facility] [place] [facility] [address] [id number] [place] [address]- 2454 09 Sep, 2011 [facility] [place] [facility] [address] [id number] [place] [address] 03 Sep, 2011 [facility] [place] [facility] [address] [id number] [place] [address] 19 Aug, 2011 [facility] [place] [facility] [address] [id number] [place] [address] 13 Aug, 2011 [facility] [place] [facility] [address] [id number] [place] [address] Jul, [facility] [place] [facility] [address] [id number] [place] [address] Jul, [facility] [address] [id number] [place] [address] Jul, [facility] [address] [id number] [place] [address] Jun, [facility] [address] [id number] [place] [address] May, [facility] [address] [id number] [place] [address] Apr, [facility] [address] [id number] [place] [address] Feb, [facility] [address] [id number] [place] [address] Sep[facility] [address] [id number] [place] [address] Jul, [facility] [address] [id number] [place] [address] Jul, [facility] [address] [id number] [place] [address] Jul, [facility] [address] [id number] [place] [address] Jul, [facility] [address] [id number] [place] [address] Jun, [facility] [place] [facility] [address] [id number] [place] [address] Feb, [facility] [place] [facility] [address] [id number] [place] [address] Jan, [facility] [place] [facility] [address] [id number] [place] [address] Feb, [facility] [place] [facility] [address] [id number] [place] [address] Jul, IMMUNIZATIONS No Known Immunizations SOCIAL HISTORY Never Assessed REASON FOR VISIT f/u, Bipolar disorder; PTSD PLAN OF CARE Activity Details Follow Up 2 Months Reason: VITAL SIGNS Height 76 in 2017-12-29 Weight 232.7 lbs 2017-12-29 Heart Rate 108 bpm 2017-12-29 Respiratory Rate 20 2017-12-29 BMI 28.32 kg/m2 2017-12-29 Blood pressure systolic 104 mmHg 2017-12-29 Blood pressure diastolic 56 mmHg 2017-12-29 MEDICATIONS Medication Instructions Dosage Frequency Start Date End Date Duration Status Singulair 10 MG 1 TABLET BY ORAL ROUTE 1 TIME PER DAY Active Gabapentin 300 mg Orally 3 times a day for anxiety 1 capsule Active Symbicort 160-4.5 MCG/ACT Inhalation Twice a day 2 puffs 12h 30 Mar, 2016 Active Omeprazole 20 MG Orally Once a day 1 CAPSULE 24h 30 days Active Ibuprofen 800 MG TAKE 1 TABLET (800 MG) BY ORAL ROUTE 3 TIMES PER DAY WITH FOOD 90 Active ProAir HFA 108 (90 Base) MCG/ACT 2 PUFFS NEEDED 4 TIMES A DAY, PRN WHEEZING INHALATION Active Nicorette 2 MG Mouth/Throat 4 times per day as needed. Follow package instructions for chew and park method 1 piece as needed Aug, Active Asmanex 60 Metered Doses 220 MCG/INH Inhalation Once a day 1 puff in the evening 24h Nov, Active Zofran 4 MG Orally Once a day 1 tablet 24h 24 May, 2017 14 days Active Loxapine Succinate 10 mg TAKE 4 CAPSULES BY MOUTH AT BEDTIME Active Neurontin 300 MG Orally Once a day as needed for anxiety 1 capsule 30 Not-Taking Meclizine HCl 25 MG Orally TID PRN, dizziness 1 Feb, 0 days Active Advair Diskus 250-50 MCG/DOSE Inhalation Twice a day 1 puff 12h Active Lexapro 10 mg Orally Once a day 1 tablet 24h 30 Active Metoprolol Tartrate 25 MG Orally Twice a day for panic 1 tablet Jul, Active RESULTS No Results PROCEDURES No Known [...]
--- OUTSIDE RECORDS SUMMARY | 2018-05-13 11:35 | XMS REPORT ---
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 Name Role Phone PETRA GARZON Unavailable PROBLEMS Type Condition ICD9-CM Code FCW29-QR Code Onset Dates Condition Status SNOMED Code Problem Obstructive sleep apnea syndrome G47.33 Active 19140643 Problem Cannabis dependence F12.20 Active 90357827 Problem Anxiety, generalized F41.1 Active 97879796 Problem Other chronic pain G89.29 Active 64266746 Problem Adjustment disorder with depressed mood F43.21 Active 28786632 Problem Chronic post-traumatic stress disorder (PTSD) F43.12 Active 785206961 Problem Post-traumatic stress disorder F43.10 Active 78417002 Problem Adjustment disorder with anxious mood F43.22 Active 96955986 Problem Adjustment disorder with mixed anxiety and depressed mood F43.23 Active 31295023 Problem Bipolar disorder, unspecified F31.9 Active 28200215 Problem Gastroesophageal reflux disease without esophagitis K21.9 Active 679297574 Problem Cannabis use disorder, moderate, dependence F12.20 Active 47093116 Problem Cigarette nicotine dependence with other nicotine-induced disorder F17.218 Active 61338752 Problem Panic disorder with agoraphobia F40.01 Active 35295552 Problem Moderate persistent asthma without complication J45.40 Active 461760928 ALLERGIES No Information ENCOUNTERS Encounter Location Date Diagnosis [facility] [id number] [address] Mar, [facility] [id number] [place] [address] 78377- 7041 Jan, Low back pain M54.5 ; Moderate persistent asthma without complication J45.40 and Other chronic pain G89.29 [facility] [id number] [address] Jan, Moderate persistent asthma without complication J45.40 ; Low back pain M54.5 ; Other chronic pain G89.29 ; Gastroesophageal reflux disease without esophagitis K21.9 and Cigarette nicotine dependence with other nicotine-induced disorder F17.218 [place] [id number] [place] [address] December, Bipolar disorder, unspecified F31.9 ; Panic disorder with agoraphobia F40.01 ; Cannabis use disorder, moderate, dependence F12.20 and Chronic post-traumatic stress disorder (PTSD) F43.12 [place] [address] [address]- [address] December, [place] [address] 576033- 5764 December, [place] [address] 63434- 7245 Nov, [address] [address]- [address] Oct, Bipolar disorder, unspecified F31.9 ; Chronic post- traumatic stress disorder (PTSD) F43.12 ; Panic disorder with agoraphobia F40.01 and Cannabis use disorder, moderate, dependence F12.20 [place] [id number] [place] [address] 69291- 2664 Sep, [place] [id number] [place] [address] 05019- 3017 Sep, [place] [id number] [place] [address] 37474- 5931 Aug, [id number] [place] [address] 48969- 6788 Aug, Cannabis use disorder, moderate, dependence F12.20 ; Panic disorder with agoraphobia F40.01 and Bipolar affective disorder, currently depressed, moderate F31.32 [id number] [place] [address] 17186- 7486 May, Diarrhea of presumed infectious origin A09 and Nausea and vomiting, intractability of vomiting not specified, unspecified vomiting type R11.2 [place] [id number] [place] [address] 85381- 5079 Apr, [place] [id number] [place] [address] 80420- 5850 Mar, Nausea R11.0 and Gastroenteritis K52.9 [place] [address] 68803- 2576 Mar, Gastroesophageal reflux disease without esophagitis K21.9 [place] [address] 993012- 3330 Mar, Gastroesophageal reflux disease without esophagitis K21.9 [place] [address] [address]- 1972 Mar, [place] [address] 93639- 5175 Mar, [place] [id number] [place] [address] 89839- 3503 Mar, [place] [address] 44840- 0413 Feb, Acute pain of right shoulder M25.511 and Muscle spasm M62.838 [place] [id number] [place] [address] 67465- 7498 Feb, Acute labyrinthitis, unspecified laterality H83.09 [place] [id number] [place] [address] 39042- 1044 December, [place] [address] 66323- 0161 December, [place] [id number] [place] [address] 19223- 8597 December, Cannabis use disorder, moderate, dependence F12.20 ; Anxiety , generalized F41.1 ; Adjustment disorder with mixed anxiety and depressed mood F43.23 and Chronic post-traumatic stress disorder (PTSD) F43.12 [place] [address], [place] [address] 7878 December, [place] [id number] [place] [address] 737823- 0227 December, [place] [id number] [place] [address] 71700- 7816 Nov, Acute nasopharyngitis J00 [place] [id number] [place] [address] 94319- 2524 Nov, Cannabis use disorder, moderate, dependence F12.20 ; Anxiety , generalized F41.1 ; Adjustment disorder with mixed anxiety and depressed mood F43.23 and Chronic post-traumatic stress disorder (PTSD) F43.12 [place] [address] [address] 4752 Nov, Cannabis use disorder, moderate, dependence F12.20 ; Anxiety , generalized F41.1 ; Adjustment disorder with mixed anxiety and depressed mood F43.23 and Chronic post-traumatic stress disorder (PTSD) F43.12 [place] [id number] [place] [address] 20707- 7186 Oct, Diarrhea, unspecified R19.7 ; Vomiting, unspecified R11.10 and Viral gastroenteritis A08.4 [place] [address] [address] 0299 Oct, Bipolar disorder, unspecified F31.9 ; Panic disorder with agoraphobia F40.01 ; Cannabis use disorder, moderate, dependence F12.20 ; Cigarette nicotine dependence with other nicotine-induced disorder F17.218 ; Anxiety, generalized F41.1 ; Post-traumatic stress disorder F43.10 and Adjustment disorder with mixed anxiety and depressed mood F43.23 [place] [address], [place] [address] Oct, Bipolar disorder, unspecified F31.9 ; Chronic post- traumatic stress disorder (PTSD) F43.12 ; Panic disorder with agoraphobia F40.01 and Cannabis use disorder, moderate, dependence F12.20 [place] [address] [place] [address] 27986- 7330 Oct, Bipolar disorder, unspecified F31.9 ; Panic disorder with agoraphobia F40.01 ; Cannabis use disorder, moderate, dependence F12.20 ; Cigarette nicotine dependence with other nicotine-induced disorder F17.218 ; Anxiety, generalized F41.1 ; Post-traumatic stress disorder F43.10 and Adjustment disorder with mixed anxiety and depressed mood F43.23 [place] [id number] [place] [address] 47913- 5031 14 Oct, 2016 Viral gastroenteritis A08.4 [id number] [place] [address] 74366- 0295 09 Oct, 2016 Anxiety, generalized F41.1 ; Post-traumatic stress disorder F43.10 ; Adjustment disorder with depressed mood F43.21 and Adjustment disorder with anxious mood F43.22 [address] [id number] [place] [address] 06767- 2382 07 Oct, 2016 Panic disorder with agoraphobia F40.01 ; Cannabis use disorder, moderate, dependence F12.20 ; Bipolar disorder, unspecified F31.9 ; Cigarette nicotine dependence with other nicotine-induced disorder F17.218 ; Adjustment disorder with anxious mood F43.22 ; Anxiety, generalized F41.1 ; Post -traumatic stress disorder F43.10 and Cannabis dependence F12.20 [place] [id number] [place] [address] 48206- 2600 Oct, Bipolar disorder, unspecified F31.9 and Chronic post- traumatic stress disorder (PTSD) F43.12 [place] [id number] [place] [address] 39024- 2704 Oct, Bipolar disorder, unspecified F31.9 and Chronic post- traumatic stress disorder (PTSD) F43.12 [place] [id number] [place] [address] 26494- 1454 Sep, Bipolar disorder, unspecified F31.9 ; Panic disorder with agoraphobia F40.01 ; PTSD (post-traumatic stress disorder) F43.10 ; Cannabis use disorder, moderate, dependence F12.20 ; Cannabis dependence F12.20 and Anxiety, generalized F41.1 [place] [address] [address]674- 151 Sep, Cannabis use disorder, moderate, dependence F12.20 ; Anxiety , generalized F41.1 and Adjustment disorder with mixed anxiety and depressed mood F43.23 [place] [address] 529675- 5434 15 Sep, 2016 Bipolar disorder, unspecified F31.9 ; Panic disorder with agoraphobia F40.01 ; PTSD (post-traumatic stress disorder) F43.10 ; Cannabis use disorder, moderate, dependence F12.20 ; Cannabis dependence F12.20 and Anxiety, generalized F41.1 [place] [address] 63131- 3415 Sep, Bipolar disorder, unspecified F31.9 ; Panic disorder with agoraphobia F40.01 ; PTSD (post-traumatic stress disorder) F43.10 ; Cannabis use disorder, moderate, dependence F12.20 ; Cannabis dependence F12.20 and Anxiety, generalized F41.1 [place] [address] [id number]- 1818 Sep, Bipolar disorder, unspecified F31.9 ; Post-traumatic stress disorder F43.10 and Cannabis dependence F12.20 [address] [address] [address]672[address]46 Sep, [address]- 2886 Sep, Suicidal behavior without attempted self-injury R46.89 [place] [address] 529679- 5895 Sep, [place] [address] 529670- 8028 07 Sep, 2016 Cannabis use disorder, moderate, dependence F12.20 ; Panic disorder with agoraphobia F40.01 ; Bipolar disorder, unspecified F31.9 and Anxiety, generalized F41.1 [place] [id number] [place] [address] 97892- 1406 07 Sep, 2016 Bipolar disorder, unspecified F31.9 ; PTSD (post-traumatic stress disorder) F43.10 ; Panic disorder with agoraphobia F40.01 and Cannabis use disorder, moderate, dependence F12.20 [place] [address] 02751- 5993 Sep, [place] [id number] [place] [address] 02024- 9950 Sep, PTSD (post-traumatic stress disorder) F43.10 ; Cannabis use disorder, moderate, dependence F12.20 and Suicidal risk R45.[address] 82130- 4984 Sep, [place] [address] 51289- 8681 Jul, Bipolar disorder, unspecified F31.9 ; PTSD (post-traumatic stress disorder) F43.10 and Panic disorder with agoraphobia F40.01 [place] [id number] [place] [address] 72553- 3432 Jul, Obstructive sleep apnea syndrome G47.33 ; Moderate persistent asthma without complication J45.40 and Cigarette nicotine dependence with other nicotine-induced disorder F17.218 [place] [id number] [place] [address] 53242- 4687 Jul, [place] [address] 18413- 6464 Jul, [place] [address] [id number]- 6399 May, [place] [address] 85927- 3232 May, [place] [address] [place] [address]- 8084 May, [place] [id number] [place] [address] 74858- 0677 Apr, [place] [id number] [place] [address] 64465- 7577 Apr, Bipolar disorder, unspecified F31.9 ; PTSD (post-traumatic stress disorder) F43.10 ; Panic disorder with agoraphobia F40.01 and Cannabis use disorder, moderate, dependence F12.20 [place] [id number] [place] [address] 57456- 0040 Mar, Uncomplicated asthma, unspecified asthma severity J45.909 [place] [id number] [place] [address] 56206- 0785 Mar, [place] [address] 95807- 0429 Mar, Moderate persistent asthma without complication J45.40 ; Gastroesophageal reflux disease without esophagitis K21.9 and Cigarette nicotine dependence with other nicotine-induced disorder F17.218 [place] [id number] [place] [address] 68368- 2324 Feb, [place] [id number] [place] [address] 89223- 0105 Jan, Bipolar disorder, unspecified F31.9 ; PTSD (post-traumatic stress disorder) F43.10 ; Panic disorder with agoraphobia F40.01 and Cannabis use disorder, moderate, dependence F12.20 [place] [address] [place] [address] 79867- 9076 December, [place] [id number] [place] [address] 54769- 3222 Nov, [place] [id number] [place] [address] 80703- 1165 Nov, Bipolar disorder, unspecified F31.9 ; PTSD (post-traumatic stress disorder) F43.10 ; Panic disorder with agoraphobia F40.01 and Cannabis use disorder, moderate, dependence F12.20 [place] [address] [place] [address] 85971- 7528 Oct, [place] [id number] [place] [address] 87870- 3914 Oct, [place] [address] [place] [address] 38280- 9469 Sep, [place] [id number] [place] [address] 24554- 2659 Sep, Bipolar disorder, unspecified F31.9 ; PTSD (post-traumatic stress disorder) F43.10 ; Panic disorder with agoraphobia F40.01 and Cannabis use disorder, moderate, dependence F12.20 [place] [id number] [place] [address] 32475- 4124 Aug, [id number] [place] [address] 46921- 2365 Aug, [place] [id number] [place] [address] 06007- 4438 Aug, Bipolar disorder, unspecified F31.9 ; PTSD (post-traumatic stress disorder) F43.10 ; Panic disorder with agoraphobia F40.01 and Cannabis use disorder, moderate, dependence F12.[address] [place] [address] 71568- 9696 Jul, [id number] [place] [address] 21103- 7986 24 Apr, 2015 GERD (gastroesophageal reflux disease) 530.81 and Internal hemorrhoids 455.0 [address] [id number] [place] [address] 92049- 9923 Feb, Rectal bleeding 569.3 and Hemorrhoids 455.6 [id number] [place] [address] 63321- 5808 Jan, Sinusitis 473.9 and Otitis media 382.9 [facility] [place] [facility] [address] [id number] [place] [address]- 9598 December, [facility] [place] [facility] [address] [id number] [place] [address]- 1070 Nov, [facility] [place] [facility] [address] [id number] [place] 3586 Nov, [facility] [place] [facility] [address] [id number] [place] 7074 Oct, [facility] [place] [facility] [address] [id number] [place] [address]- 5625 Oct, [facility] [place] [facility] [address] [id number] [place] [address]- 5233 Sep, [facility] [place] [facility] [address] [facility] [id number] [place] [address]- 6800 Sep, [facility] [place] [facility] [address] [facility] [id number], [place] [address]- 3513 Aug, [facility] [place] [facility] [address] [facility] [id number], [place] [address]- 8540 Aug, [facility] [place] [facility] [address] [facility] [id number], [place] [address]- 8379 Jul, [facility] [place] [facility] [address] [facility] [id number], [place] [address]- 2256 Jul, [facility] [place] [facility] [address] [facility] [id number], [place] [address]- 7407 Jul, [facility] [place] [facility] [address] [facility] [id number], [place] [address]- 6207 Jul, [facility] [place] [facility] [address] [facility] [id number][place]- 3570 Jul, [facility] [place] [facility] [address] [facility] [id number] 7401 Jul, [facility] [place] [facility] [address] [id number], [place] [address]- 6950 Jul, [facility] [place] [facility] [address] [id number] [place] [address]- 0179 Jul, [facility] [place] [facility] [address] [id number] [place] [address]- 5498 Jun, [facility] [place] [facility] [address] [facility] [id number] [place] [address]- 9929 Jun, [facility] [place] [facility] [address] [id number] [place] [address]- 5073 Jun, [facility] [place] [facility] [address] [id number] [place] [address]- 2895 Jun, [facility] [place] [facility] [address] [id number] [place] [address]- 7246 May, [facility] [place] [facility] [address] [facility] [id number], [place] [address]- 3012 May, [facility] [place] [facility] [address] [id number] [place] [address]- 6856 May, [facility] [place] [facility] [address] [facility] [id number] [place] [address]- 4084 May, [facility] [place] [facility] [address] [facility] [id number], [place] [address]- 3512 Apr, [facility] [place] [facility] [address] [id number], [place] [address]- 2252 Apr, [facility] [place] [facility] [address] [id number], [place] [address]- 3340 Apr, [facility] [place] [facility] [address] [id number] [place] [address]- 1753 Apr, [facility] [place] [facility] [address] [facility] [id number], [place] [address]- 3321 Mar, [facility] [place] [facility] [address] [facility] [id number] [place] [address]- 1435 Mar, [facility] [place] [facility] [address] [id number] [place] [address]- 8794 Mar, [facility] [place] [facility] [address] [id number] [place] 3294 Mar, [facility] [place] [facility] [address] [id number] [place] [address]- 2171 December, [facility] [place] [facility] [address] [id number] [place] [address]- 0569 December, [facility] [place] [facility] [address] [id number] [place] [address]- 4096 Nov, [facility] [place] [facility] [address] [id number] [place] [address]- 8820 Nov, [facility] [place] [facility] [address] [id number] [place] [address]- 5363 Sep, [facility] [place] [facility] [address] [id number] [place] [address]- 4415 Sep, [facility] [place] [facility] [address] [id number] [place] [address]- 8124 Sep, [facility] [place] [facility] [address] [id number] [place] [address]- 4338 Sep, [facility] [place] [facility] [address] [id number] [place] [address]- 7902 Aug, [facility] [place] [facility] [address] [id number] [place] [address]- 2005 Jul, [facility] [place] [facility] [address] [id number] [place] [address]- 9824 Jul, [facility] [place] [facility] [address] [id number] [place] [address]- 5347 Jun, [facility] [place] [facility] [address] [id number] [place] [address]- 2729 Jun, [facility] [place] [facility] [address] [id number] [place] [address]- 6470 18 May, 2013 [facility] [place] [facility] [address] [id number] [place] [address]- 2997 18 May, 2013 [facility] [place] [facility] [address] [id number] [place] [address]- 9576 07 May, 2013 [facility] [place] [facility] [address] [id number] [place] [address]- 5580 17 Apr, 2013 [facility] [place] [facility] [address] [id number] [place] [address]- 4605 16 Apr, 2013 [facility] [place] [facility] [address] [id number] [place] [address]- 5308 Apr, [facility] [place] [facility] [address] [id number] [place] [address]- 5978 Apr, [facility] [place] [facility] [address] [id number] [place] [address]- 5672 Mar, [facility] [place] [facility] [address] [id number] [place] [address]- 2989 Mar, [facility] [place] [facility] [address] [id number] [place] [address]- 2022 December, [facility] [place] [facility] [address] [id number] [place] [address]- 7982 Oct, [facility] [place] [facility] [address] [id number] [place] [address]- 1700 Oct, [facility] [place] [facility] [address] [id number] [place] [address]- 2491 Aug, [facility] [place] [facility] [address] [id number] [place] [address]- 2727 Jul, [facility] [place] [facility] [address] [id number] [place] [address]- 1252 Jul, [facility] [place] [facility] [address] [id number] [place] [address]- 9852 Jul, [facility] [place] [facility] [address] [id number] [place] [address] 2546 13 Jul, 2012 [facility] [address] [id number] [place] [address]- 1677 14 Jun, 2012 [facility] [address] [id number] [place] [address]- 2546 14 Jun, 2012 [facility] [address] [id number] [place] [address]- 4066 14 Mar, 2012 [facility] [address] [id number] [place] [address]- 2546 16 Feb, 2012 [facility] [address] [id number] [place] [address]- 5756 16 Feb, 2012 [facility] [address] [id number] [place] [address]- 6376 December, [facility] [address] [id number] [place] [address]- 5626 17 Nov, 2011 [facility] [address] [id number] [place] [address]- 5765 Oct, [facility] [address] [id number] [place] [address]- 0296 Oct, [facility] [address] [id number] [place] [address] Sep, [facility] [address] [id number] [place] [address] Sep, [facility] [address] [id number] [place] [address] Aug, [facility] [address] [id number] [place] [address] Aug, [facility] [address] [id number] [place] [address] Jul, [facility] [address] [id number] [place] [address] Jul, [facility] [address] [facility] [id number], [place] [address] Jul, [facility] [address] [id number] [place] [address] Jun, [facility] [address] [facility] [id number] [place] [address] 17 May, 2011 [facility] [address] [facility] [id number], [place] [address] Apr, [facility] [address] [facility] [id number] [place] Feb, [facility] [address] [facility] [id number], [place] [address] Sep, [facility] [address] [facility] [id number] [place] [address] Jul, [facility] [address] [facility] [id number][place] [address] Jul, [facility] [address] [facility] [id number], [place] [address] Jul, [facility] [address] [facility] [id number], [place] [address] Jul, [facility] [address] [facility] [id number], [place] [address] Jun, [facility] [address] [facility] [id number], [place] [address] Feb, [facility] [address] [facility] [id number], [place] [address] Jan, [facility] [address] [facility] [id number], [place] [address] Feb, [facility] [address] [facility] [id number] [id number] Jul, IMMUNIZATIONS No Known Immunizations SOCIAL HISTORY Never Assessed REASON FOR VISIT LVM PLAN OF CARE VITAL SIGNS MEDICATIONS Unknown Medications RESULTS No Results PROCEDURES No Known procedures [...]
--- OUTSIDE RECORDS SUMMARY | 2018-05-13 11:36 | XMS REPORT ---
Author Author PETRA GARZON Organization [facility] Address [address] [place] [address] Care Team Providers Care Parcel Post Officer Name Role Phone PETRA GARZON Unavailable PROBLEMS Type Condition ICD9-CM Code [id number] Code Onset Dates Condition Status SNOMED Code Problem Obstructive sleep apnea syndrome G47.33 Active 55399341 Problem Cannabis dependence F12.20 Active 35334397 Problem Anxiety, generalized F41.1 Active 11667430 Problem Other chronic pain G89.29 Active 21990072 Problem Adjustment disorder with depressed mood F43.21 Active 10523247 Problem Chronic post-traumatic stress disorder (PTSD) F43.12 Active 552990345 Problem Post-traumatic stress disorder F43.10 Active 32622130 Problem Adjustment disorder with anxious mood F43.22 Active 26013606 Problem Adjustment disorder with mixed anxiety and depressed mood F43.23 Active 52332175 Problem Bipolar disorder, unspecified F31.9 Active 71074553 Problem Gastroesophageal reflux disease without esophagitis K21.9 Active 341924085 Problem Cannabis use disorder, moderate, dependence F12.20 Active 90357443 Problem Cigarette nicotine dependence with other nicotine-induced disorder F17.218 Active 56595948 Problem Panic disorder with agoraphobia F40.01 Active 20090864 Problem Moderate persistent asthma without complication J45.40 Active 613045072 ALLERGIES No Information ENCOUNTERS Encounter Location Date Diagnosis [facility] [id number] [address] Mar, [facility] [id number] [place] [address]- 4844 Jan, Low back pain M54.5 ; Moderate persistent asthma without complication J45.40 and Other chronic pain G89.29 [facility] [id number] [address] Jan, Moderate persistent asthma without complication J45.40 ; Low back pain M54.5 ; Other chronic pain G89.29 ; Gastroesophageal reflux disease without esophagitis K21.9 and Cigarette nicotine dependence with other nicotine-induced disorder F17.218 [address] [id number] [place], [place] [address] December, Bipolar disorder, unspecified F31.9 ; Panic disorder with agoraphobia F40.01 ; Cannabis use disorder, moderate, dependence F12.20 and Chronic post-traumatic stress disorder (PTSD) F43.12 [place] [address] [address]- [address] December, [place] [address] 059028- 2117 December, [place] [address] 38699- 8430 Nov, [address] [address]- [address] Oct, Bipolar disorder, unspecified F31.9 ; Chronic post- traumatic stress disorder (PTSD) F43.12 ; Panic disorder with agoraphobia F40.01 and Cannabis use disorder, moderate, dependence F12.20 [place] [id number] [place] [address] 23357- 9653 Sep, [place] [id number] [place] [address] 30937- 5527 Sep, [place] [id number] [place] [address] 38805- 4647 Aug, [id number] [place] [address] 67997- 3792 Aug, Cannabis use disorder, moderate, dependence F12.20 ; Panic disorder with agoraphobia F40.01 and Bipolar affective disorder, currently depressed, moderate F31.32 [id number] [place] [address] 21801- 1453 May, Diarrhea of presumed infectious origin A09 and Nausea and vomiting, intractability of vomiting not specified, unspecified vomiting type R11.2 [place] [id number] [place] [address] 92818- 0721 Apr, [place] [id number] [place] [address] 81471- 2680 Mar, Nausea R11.0 and Gastroenteritis K52.9 [place] [address] 95900- 7803 Mar, Gastroesophageal reflux disease without esophagitis K21.9 [place] [address] 456696- 8319 Mar, Gastroesophageal reflux disease without esophagitis K21.9 [place] [address] 80665- 5638 Mar, [place] [address] 90247- 7580 Mar, [place] [id number] [place] [address] 26654- 2584 Mar, [place] [address] 81962- 1091 Feb, Acute pain of right shoulder M25.511 and Muscle spasm M62.838 [place] [id number] [place] [address] 77850- 2731 Feb, Acute labyrinthitis, unspecified laterality H83.09 [place] [id number] [place] [address] 13916- 4569 December, [place] [address] 84928- 4604 December, [place] [id number] [place] [address] 21431- 1020 December, Cannabis use disorder, moderate, dependence F12.20 ; Anxiety , generalized F41.1 ; Adjustment disorder with mixed anxiety and depressed mood F43.23 and Chronic post-traumatic stress disorder (PTSD) F43.12 [place] [address] [address] 5209 December, [place] [id number] [place] [address] 124422- 7791 December, [place] [id number] [place] [address] 97674- 2979 Nov, Acute nasopharyngitis J00 [place] [id number] [place] [address] 76008- 8446 Nov, Cannabis use disorder, moderate, dependence F12.20 ; Anxiety , generalized F41.1 ; Adjustment disorder with mixed anxiety and depressed mood F43.23 and Chronic post-traumatic stress disorder (PTSD) F43.12 [place] [address] [address] 2112 Nov, Cannabis use disorder, moderate, dependence F12.20 ; Anxiety , generalized F41.1 ; Adjustment disorder with mixed anxiety and depressed mood F43.23 and Chronic post-traumatic stress disorder (PTSD) F43.12 [place] [id number] [place] [address] 44641- 1639 Oct, Diarrhea, unspecified R19.7 ; Vomiting, unspecified R11.10 and Viral gastroenteritis A08.4 [place] [address] [address] 1383 Oct, Bipolar disorder, unspecified F31.9 ; Panic disorder with agoraphobia F40.01 ; Cannabis use disorder, moderate, dependence F12.20 ; Cigarette nicotine dependence with other nicotine-induced disorder F17.218 ; Anxiety, generalized F41.1 ; Post-traumatic stress disorder F43.10 and Adjustment disorder with mixed anxiety and depressed mood F43.23 [place] [address] [address] 5678 Oct, Bipolar disorder, unspecified F31.9 ; Chronic post- traumatic stress disorder (PTSD) F43.12 ; Panic disorder with agoraphobia F40.01 and Cannabis use disorder, moderate, dependence F12.20 [place] [id number] [place] [address] 47050- 2765 Oct, Bipolar disorder, unspecified F31.9 ; Panic disorder with agoraphobia F40.01 ; Cannabis use disorder, moderate, dependence F12.20 ; Cigarette nicotine dependence with other nicotine-induced disorder F17.218 ; Anxiety, generalized F41.1 ; Post-traumatic stress disorder F43.10 and Adjustment disorder with mixed anxiety and depressed mood F43.23 [place] [id number] [place] [address] 71492- 4816 14 Oct, 2016 Viral gastroenteritis A08.4 [address] [address] [id number] [place] [address] 44271- 1341 09 Oct, 2016 Anxiety, generalized F41.1 ; Post-traumatic stress disorder F43.10 ; Adjustment disorder with depressed mood F43.21 and Adjustment disorder with anxious mood F43.22 [address] [id number] [place] [address] 86670- 6785 07 Oct, 2016 Panic disorder with agoraphobia F40.01 ; Cannabis use disorder, moderate, dependence F12.20 ; Bipolar disorder, unspecified F31.9 ; Cigarette nicotine dependence with other nicotine-induced disorder F17.218 ; Adjustment disorder with anxious mood F43.22 ; Anxiety, generalized F41.1 ; Post -traumatic stress disorder F43.10 and Cannabis dependence F12.20 [place] [id number] [place] [address] 34435- 1183 Oct, Bipolar disorder, unspecified F31.9 and Chronic post- traumatic stress disorder (PTSD) F43.12 [place] [id number] [place] [address] 11506- 6874 Oct, Bipolar disorder, unspecified F31.9 and Chronic post- traumatic stress disorder (PTSD) F43.12 [place] [id number] [place] [address] 34778- 7177 Sep, Bipolar disorder, unspecified F31.9 ; Panic disorder with agoraphobia F40.01 ; PTSD (post-traumatic stress disorder) F43.10 ; Cannabis use disorder, moderate, dependence F12.20 ; Cannabis dependence F12.20 and Anxiety, generalized F41.1 [place] [address] 863212- 850 Sep, Cannabis use disorder, moderate, dependence F12.20 ; Anxiety , generalized F41.1 and Adjustment disorder with mixed anxiety and depressed mood F43.23 [place] [address] 863211- 0939 15 Sep, 2016 Bipolar disorder, unspecified F31.9 ; Panic disorder with agoraphobia F40.01 ; PTSD (post-traumatic stress disorder) F43.10 ; Cannabis use disorder, moderate, dependence F12.20 ; Cannabis dependence F12.20 and Anxiety, generalized F41.1 [place] [address] 54536- 1572 Sep, Bipolar disorder, unspecified F31.9 ; Panic disorder with agoraphobia F40.01 ; PTSD (post-traumatic stress disorder) F43.10 ; Cannabis use disorder, moderate, dependence F12.20 ; Cannabis dependence F12.20 and Anxiety, generalized F41.1 [place] [address] [id number]- 5728 Sep, Bipolar disorder, unspecified F31.9 ; Post-traumatic stress disorder F43.10 and Cannabis dependence F12.20 [address] [address] 0415[address] Sep, [address]- 1809 Sep, Suicidal behavior without attempted self-injury R46.89 [place] [address] 863217- 6232 Sep, [place] [address] 863212- 4781 07 Sep, 2016 Cannabis use disorder, moderate, dependence F12.20 ; Panic disorder with agoraphobia F40.01 ; Bipolar disorder, unspecified F31.9 and Anxiety, generalized F41.1 [place] [id number] [place] [address] 69090- 4784 07 Sep, 2016 Bipolar disorder, unspecified F31.9 ; PTSD (post-traumatic stress disorder) F43.10 ; Panic disorder with agoraphobia F40.01 and Cannabis use disorder, moderate, dependence F12.20 [place] [address] 67877- 5482 Sep, [place] [id number] [place] [address] 36257- 1568 Sep, PTSD (post-traumatic stress disorder) F43.10 ; Cannabis use disorder, moderate, dependence F12.20 and Suicidal risk R45.[address] 82008- 1102 Sep, [place] [address] 75724- 5675 Jul, Bipolar disorder, unspecified F31.9 ; PTSD (post-traumatic stress disorder) F43.10 and Panic disorder with agoraphobia F40.01 [place] [id number] [place] [address] 14536- 1008 Jul, Obstructive sleep apnea syndrome G47.33 ; Moderate persistent asthma without complication J45.40 and Cigarette nicotine dependence with other nicotine-induced disorder F17.218 [place] [id number] [place] [address] 67997- 6656 Jul, [place] [address] 28489- 3159 Jul, [place] [address] [id number]- 9893 May, [place] [address] 04813- 1443 May, [place] [address] [place] [address]- 8334 May, [place] [id number] [place] [address] 46036- 8411 Apr, [place] [id number] [place] [address] 07463- 1458 Apr, Bipolar disorder, unspecified F31.9 ; PTSD (post-traumatic stress disorder) F43.10 ; Panic disorder with agoraphobia F40.01 and Cannabis use disorder, moderate, dependence F12.20 [place] [id number] [place] [address] 97413- 6780 Mar, Uncomplicated asthma, unspecified asthma severity J45.909 [place] [id number] [place] [address] 42715- 4100 Mar, [place] [address] 48146- 6379 Mar, Moderate persistent asthma without complication J45.40 ; Gastroesophageal reflux disease without esophagitis K21.9 and Cigarette nicotine dependence with other nicotine-induced disorder F17.218 [place] [id number] [place] [address] 74361- 0359 Feb, [place] [id number] [place] [address] 06240- 6029 Jan, Bipolar disorder, unspecified F31.9 ; PTSD (post-traumatic stress disorder) F43.10 ; Panic disorder with agoraphobia F40.01 and Cannabis use disorder, moderate, dependence F12.20 [place] [address] [place] [address] 55945- 7752 December, [place] [id number] [place] [address] 20786- 9376 Nov, [place] [id number] [place] [address] 46375- 6939 Nov, Bipolar disorder, unspecified F31.9 ; PTSD (post-traumatic stress disorder) F43.10 ; Panic disorder with agoraphobia F40.01 and Cannabis use disorder, moderate, dependence F12.20 [place] [address] [place] [address] 98795- 8132 Oct, [place] [id number] [place] [address] 16738- 6646 Oct, [place] [id number] [place] [address] 23069- 0610 Sep, [place] [id number] [place] [address] 16393- 3967 Sep, Bipolar disorder, unspecified F31.9 ; PTSD (post-traumatic stress disorder) F43.10 ; Panic disorder with agoraphobia F40.01 and Cannabis use disorder, moderate, dependence F12.20 [place] [id number] [place] [address] 27154- 9862 Aug, [id number] [place] [address] 19471- 6710 Aug, [place] [id number] [place] [address] 54855- 6960 Aug, Bipolar disorder, unspecified F31.9 ; PTSD (post-traumatic stress disorder) F43.10 ; Panic disorder with agoraphobia F40.01 and Cannabis use disorder, moderate, dependence F12.20 [address] [place] [address] 01720- 0053 Jul, [id number] [place] [address] 68702- 5534 24 Apr, 2015 GERD (gastroesophageal reflux disease) 530.81 and Internal hemorrhoids 455.0 [address] [id number] [place] [address] 82127- 0838 Feb, Rectal bleeding 569.3 and Hemorrhoids 455.6 [id number] [place] [address] 27628- 9534 Jan, Sinusitis 473.9 and Otitis media 382.9 [facility] [place] [facility] [address] [id number] [place] [address]- 8835 December, [facility] [place] [facility] [address] [id number] [place] [address]- 9395 Nov, [facility] [place] [facility] [address] [id number] [place] 2243 Nov, [facility] [place] [facility] [address] [id number] [place] [address] Oct, [facility] [place] [facility] [address] [id number] [place] [address]- 5009 Oct, [facility] [place] [facility] [address] [id number] [place] [address]- 3119 Sep, [facility] [place] [facility] [address] [facility] [id number] [place] [address]- 7176 Sep, [facility] [place] [facility] [address] [facility] [id number] [place] [address]- 9189 Aug, [facility] [place] [facility] [address] [facility] [id number] [place] [address]- 2989 Aug, [facility] [place] [facility] [address] [facility] [id number] [place] [address]- 0278 Jul, [facility] [place] [facility] [address] [facility] [id number] [place] [address]- 6949 Jul, [facility] [place] [facility] [address] [facility] [id number] [place] [address]- 6375 Jul, [facility] [place] [facility] [address] [facility] [id number] [place] [address]- 2123 Jul, [facility] [place] [facility] [address] [facility] [id number] [place] 8119 Jul, [facility] [place] [facility] [address] [facility] [id number] [place] 5059 Jul, [facility] [place] [facility] [address] [id number] [place] [address]- 3902 Jul, [facility] [place] [facility] [address] [id number] [place] [address]- 5521 Jul, [facility] [place] [facility] [address] [id number] [place] [address]- 9323 Jun, [facility] [place] [facility] [address] [facility] [id number] [place] [address]- 7372 Jun, [facility] [place] [facility] [address] [id number] [place] [address]- 5208 Jun, [facility] [place] [facility] [address] [id number] [place] [address]- 9572 Jun, [facility] [place] [facility] [address] [id number] [place] [address]- 0756 May, [facility] [place] [facility] [address] [facility] [id number] [place] [address]- 2554 May, [facility] [place] [facility] [address] [id number] [place] [address]- 5739 May, [facility] [place] [facility] [address] [facility] [id number] [place] [address]- 7633 May, [facility] [place] [facility] [address] [facility] [id number] [place] [address]- 0325 Apr, [facility] [place] [facility] [address] [id number] [place] [address]- 8245 Apr, [facility] [place] [facility] [address] [id number] [place] [address]- 2293 Apr, [facility] [place] [facility] [address] [id number] [place] [address]- 6198 Apr, [facility] [place] [facility] [address] [facility] [id number] [place] [address]- 3622 Mar, [facility] [place] [facility] [address] [facility] [id number] [place] [address]- 7717 Mar, [facility] [place] [facility] [address] [id number] [place] [address]- 9665 Mar, [facility] [place] [facility] [address] [id number] [place]- 6320 Mar, [facility] [place] [facility] [address] [id number] [place] [address]- 0900 December, [facility] [place] [facility] [address] [id number] [place] [address]- 7252 December, [facility] [place] [facility] [address] [id number] [place] [address]- 7840 Nov, [facility] [place] [facility] [address] [id number] [place] [address]- 3999 Nov, [facility] [place] [facility] [address] [id number] [place] [address]- 0705 Sep, [facility] [place] [facility] [address] [id number] [place] [address]- 6321 Sep, [facility] [place] [facility] [address] [id number] [place] [address]- 5745 Sep, [facility] [place] [facility] [address] [id number] [place] [address]- 7955 Sep, [facility] [place] [facility] [address] [id number] [place] [address]- 7964 Aug, [facility] [place] [facility] [address] [id number] [place] [address]- 9167 Jul, [facility] [place] [facility] [address] [id number] [place] [address]- 2657 Jul, [facility] [place] [facility] [address] [id number] [place] [address]- 4616 Jun, [facility] [place] [facility] [address] [id number] [place] [address]- 0781 Jun, [facility] [place] [facility] [address] [id number] [place] [address]- 1760 18 May, 2013 [facility] [place] [facility] [address] [id number] [place] [address]- 8080 18 May, 2013 [facility] [place] [facility] [address] [id number] [place] [address]- 3916 07 May, 2013 [facility] [place] [facility] [address] [id number] [place] [address]- 9026 17 Apr, 2013 [facility] [place] [facility] [address] [id number] [place] [address]- 8751 16 Apr, 2013 [facility] [place] [facility] [address] [id number] [place] [address]- 8282 Apr, [facility] [place] [facility] [address] [id number] [place] [address]- 6213 Apr, [facility] [place] [facility] [address] [id number] [place] [address]- 5377 Mar, [facility] [place] [facility] [address] [id number] [place] [address]- 5998 Mar, [facility] [place] [facility] [address] [id number] [place] [address]- 3270 December, [facility] [place] [facility] [address] [id number] [place] [address]- 8192 Oct, [facility] [place] [facility] [address] [id number] [place] [address]- 9107 Oct, [facility] [place] [facility] [address] [id number] [place] [address]- 5141 Aug, [facility] [place] [facility] [address] [id number] [place] [address]- 3490 Jul, [facility] [place] [facility] [address] [id number] [place] [address]- 2746 Jul, [facility] [place] [facility] [address] [id number] [place] [address]- 1260 Jul, [facility] [place] [facility] [address] [id number] [place] [address] 2546 13 Jul, 2012 [facility] [address] [id number] [place] [address]- 1533 14 Jun, 2012 [facility] [address] [id number] [place] [address]- 2546 14 Jun, 2012 [facility] [address] [id number] [place] [address]- 7626 14 Mar, 2012 [facility] [address] [id number] [place] [address]- 2546 16 Feb, 2012 [facility] [address] [id number] [place] [address]- 9206 16 Feb, 2012 [facility] [address] [id number] [place] [address]- 0206 December, [facility] [address] [id number] [place] [address]- 5426 17 Nov, 2011 [facility] [address] [id number] [place] [address]- 0071 Oct, [facility] [address] [id number] [place] [address]- 7366 Oct, [facility] [address] [id number] [place] [address]- 5596 Sep, [facility] [address] [id number] [place] [address]- 2546 Sep, [facility] [address] [id number] [place] [address]- 0476 Aug, [facility] [address] [id number] [place] [address] Aug, [facility] [address] [id number] [place] [address] Jul, [facility] [address] [id number] [place] [address] Jul, [facility] [address] [facility] [id number] [place] [address] Jul, [facility] [address] [facility] [id number] [place] [address] Jun, [facility] [address] [facility] [id number] [place] [address] May, [facility] [address] [facility] [id number] [place] [address] Apr, [facility] [address] [facility] [id number] [place] [address] Feb, [facility] [address] [facility] [id number] [place] [address] Sep, [facility] [address] [facility] [id number] [place] [address] Jul, [facility] [address] [facility] [id number] [place] [address] Jul, [facility] [address] [facility] [id number] [place] [address] Jul, [facility] [address] [facility] [id number] [place] [address] Jul, [facility] [address] [facility] [id number] [place] [address] Jun, [facility] [address] [facility] [id number] [place] [address] Feb, [facility] [address] [facility] [id number] [place] [address] Jan, [facility] [address] [facility] [id number] [place] [address] Feb, [facility] [address] [facility] [id number] [place] [address] Jul, IMMUNIZATIONS No Known Immunizations SOCIAL HISTORY Never Assessed REASON FOR VISIT PLAN OF CARE VITAL SIGNS MEDICATIONS Medication Instructions Dosage Frequency Start Date End Date Duration Status Asmanex 60 Metered Doses 220 MCG/INH Inhalation Once a day 1 puff in the evening 24h Nov, Active RESULTS No Results PROCEDURES No Known [...]
--- OUTSIDE RECORDS SUMMARY | 2018-05-13 11:36 | XMS REPORT ---
Author Author PETRA GARZON Organization [facility] [place] Address [address] [place] [address] Care Team Providers Care Paramedical Aide Name Role Phone PETRA GARZON Unavailable PROBLEMS Type Condition ICD9-CM Code QZE74-VI Code Onset Dates Condition Status SNOMED Code Problem Obstructive sleep apnea syndrome G47.33 Active 74124017 Problem Cannabis dependence F12.20 Active 55994571 Problem Anxiety, generalized F41.1 Active 06308291 Problem Other chronic pain G89.29 Active 53102189 Problem Adjustment disorder with depressed mood F43.21 Active 74155045 Problem Chronic post-traumatic stress disorder (PTSD) F43.12 Active 912214304 Problem Post-traumatic stress disorder F43.10 Active 34668046 Problem Adjustment disorder with anxious mood F43.22 Active 62858150 Problem Adjustment disorder with mixed anxiety and depressed mood F43.23 Active 17130931 Problem Bipolar disorder, unspecified F31.9 Active 41409683 Problem Gastroesophageal reflux disease without esophagitis K21.9 Active 079024518 Problem Cannabis use disorder, moderate, dependence F12.20 Active 76353415 Problem Cigarette nicotine dependence with other nicotine-induced disorder F17.218 Active 73069529 Problem Panic disorder with agoraphobia F40.01 Active 15746626 Problem Moderate persistent asthma without complication J45.40 Active 089246234 ALLERGIES No Information ENCOUNTERS Encounter Location Date Diagnosis [facility] [place] [id number] [address] Mar, [facility] [place] [id number] [place] [address] 31285- 1454 Jan, Low back pain M54.5 ; Moderate persistent asthma without complication J45.40 and Other chronic pain G89.29 [facility] [place] [id number], [place] [address] Jan, Moderate persistent asthma without complication J45.40 ; Low back pain M54.5 ; Other chronic pain G89.29 ; Gastroesophageal reflux disease without esophagitis K21.9 and Cigarette nicotine dependence with other nicotine-induced disorder F17.218 [place] [id number] [place] [address] December, Bipolar disorder, unspecified F31.9 ; Panic disorder with agoraphobia F40.01 ; Cannabis use disorder, moderate, dependence F12.20 and Chronic post-traumatic stress disorder (PTSD) F43.12 [place] [address] [address]- [address] December, [place] [address] 457366- 9235 December, [place] [address] 61276- 1078 Nov, [address] [address]- [address] Oct, Bipolar disorder, unspecified F31.9 ; Chronic post- traumatic stress disorder (PTSD) F43.12 ; Panic disorder with agoraphobia F40.01 and Cannabis use disorder, moderate, dependence F12.20 [place] [id number] [place] [address] 76802- 4814 Sep, [place] [id number] [place] [address] 68333- 8156 Sep, [place] [id number] [place] [address] 69753- 0501 Aug, [id number] [place] [address] 11051- 8432 Aug, Cannabis use disorder, moderate, dependence F12.20 ; Panic disorder with agoraphobia F40.01 and Bipolar affective disorder, currently depressed, moderate F31.32 [id number] [place] [address] 39039- 9404 May, Diarrhea of presumed infectious origin A09 and Nausea and vomiting, intractability of vomiting not specified, unspecified vomiting type R11.2 [place] [id number] [place] [address] 89185- 4680 Apr, [place] [id number] [place] [address] 16186- 3995 Mar, Nausea R11.0 and Gastroenteritis K52.9 [place] [address] 57755- 3810 Mar, Gastroesophageal reflux disease without esophagitis K21.9 [place] [address] 330174- 6012 Mar, Gastroesophageal reflux disease without esophagitis K21.9 [place] [address] 22128- 6880 Mar, [place] [address] 20585- 2611 Mar, [place] [id number] [place] [address] 39514- 9350 Mar, [place] [address] 11940- 6258 Feb, Acute pain of right shoulder M25.511 and Muscle spasm M62.838 [place] [id number] [place] [address] 25559- 6215 Feb, Acute labyrinthitis, unspecified laterality H83.09 [place] [id number] [place] [address] 05676- 3894 December, [place] [address] 27766- 2230 December, [place] [id number] [place] [address] 46201- 5989 December, Cannabis use disorder, moderate, dependence F12.20 ; Anxiety , generalized F41.1 ; Adjustment disorder with mixed anxiety and depressed mood F43.23 and Chronic post-traumatic stress disorder (PTSD) F43.12 [place] [address] [address] 0528 December, [place] [id number] [place] [address] 345019- 1991 December, [place] [id number] [place] [address] 98119- 3083 Nov, Acute nasopharyngitis J00 [place] [id number] [place] [address] 33238- 3267 Nov, Cannabis use disorder, moderate, dependence F12.20 ; Anxiety , generalized F41.1 ; Adjustment disorder with mixed anxiety and depressed mood F43.23 and Chronic post-traumatic stress disorder (PTSD) F43.12 [place] [address] [address]- 8634 Nov, Cannabis use disorder, moderate, dependence F12.20 ; Anxiety , generalized F41.1 ; Adjustment disorder with mixed anxiety and depressed mood F43.23 and Chronic post-traumatic stress disorder (PTSD) F43.12 [place] [id number] [place] [address] 21014- 6961 Oct, Diarrhea, unspecified R19.7 ; Vomiting, unspecified R11.10 and Viral gastroenteritis A08.4 [place] [address], [place] [address]- 7158 Oct, Bipolar disorder, unspecified F31.9 ; Panic disorder with agoraphobia F40.01 ; Cannabis use disorder, moderate, dependence F12.20 ; Cigarette nicotine dependence with other nicotine-induced disorder F17.218 ; Anxiety, generalized F41.1 ; Post-traumatic stress disorder F43.10 and Adjustment disorder with mixed anxiety and depressed mood F43.23 [place] [address] [address] 7287 Oct, Bipolar disorder, unspecified F31.9 ; Chronic post- traumatic stress disorder (PTSD) F43.12 ; Panic disorder with agoraphobia F40.01 and Cannabis use disorder, moderate, dependence F12.20 [place] [address] [place] [address] 73938- 1749 Oct, Bipolar disorder, unspecified F31.9 ; Panic disorder with agoraphobia F40.01 ; Cannabis use disorder, moderate, dependence F12.20 ; Cigarette nicotine dependence with other nicotine-induced disorder F17.218 ; Anxiety, generalized F41.1 ; Post-traumatic stress disorder F43.10 and Adjustment disorder with mixed anxiety and depressed mood F43.23 [place] [id number] [place] [address] 48384- 1000 14 Oct, 2016 Viral gastroenteritis A08.4 [id number] [place] [address] 65347- 6000 09 Oct, 2016 Anxiety, generalized F41.1 ; Post-traumatic stress disorder F43.10 ; Adjustment disorder with depressed mood F43.21 and Adjustment disorder with anxious mood F43.22 [place] [id number] [place] [address] 94644- 6192 07 Oct, 2016 Panic disorder with agoraphobia F40.01 ; Cannabis use disorder, moderate, dependence F12.20 ; Bipolar disorder, unspecified F31.9 ; Cigarette nicotine dependence with other nicotine-induced disorder F17.218 ; Adjustment disorder with anxious mood F43.22 ; Anxiety, generalized F41.1 ; Post -traumatic stress disorder F43.10 and Cannabis dependence F12.20 [place] [id number] [place] [address] 03421- 8603 Oct, Bipolar disorder, unspecified F31.9 and Chronic post- traumatic stress disorder (PTSD) F43.12 [place] [id number] [place] [address] 38121- 1060 Oct, Bipolar disorder, unspecified F31.9 and Chronic post- traumatic stress disorder (PTSD) F43.12 [place] [id number] [place] [address] 11264- 1756 Sep, Bipolar disorder, unspecified F31.9 ; Panic disorder with agoraphobia F40.01 ; PTSD (post-traumatic stress disorder) F43.10 ; Cannabis use disorder, moderate, dependence F12.20 ; Cannabis dependence F12.20 and Anxiety, generalized F41.1 [place] [address] 8[address]235- 800 Sep, Cannabis use disorder, moderate, dependence F12.20 ; Anxiety , generalized F41.1 and Adjustment disorder with mixed anxiety and depressed mood F43.23 [place] [address] 830236- 9379 15 Sep, 2016 Bipolar disorder, unspecified F31.9 ; Panic disorder with agoraphobia F40.01 ; PTSD (post-traumatic stress disorder) F43.10 ; Cannabis use disorder, moderate, dependence F12.20 ; Cannabis dependence F12.20 and Anxiety, generalized F41.1 [place] [address] 47079- 2004 Sep, Bipolar disorder, unspecified F31.9 ; Panic disorder with agoraphobia F40.01 ; PTSD (post-traumatic stress disorder) F43.10 ; Cannabis use disorder, moderate, dependence F12.20 ; Cannabis dependence F12.20 and Anxiety, generalized F41.1 [place] [address] [id number]- 4840 Sep, Bipolar disorder, unspecified F31.9 ; Post-traumatic stress disorder F43.10 and Cannabis dependence F12.20 [address] [address] 618092[address]2546 Sep, [place] [address]24- 9618 Sep, Suicidal behavior without attempted self-injury R46.89 [place] [address] 830232- 8799 Sep, [place] [address] 830232- 3063 07 Sep, 2016 Cannabis use disorder, moderate, dependence F12.20 ; Panic disorder with agoraphobia F40.01 ; Bipolar disorder, unspecified F31.9 and Anxiety, generalized F41.1 [place] [id number] [place] [address] 35603- 1913 07 Sep, 2016 Bipolar disorder, unspecified F31.9 ; PTSD (post-traumatic stress disorder) F43.10 ; Panic disorder with agoraphobia F40.01 and Cannabis use disorder, moderate, dependence F12.20 [place] [address] 87407- 9740 Sep, [place] [id number] [place] [address] 99657- 4608 Sep, PTSD (post-traumatic stress disorder) F43.10 ; Cannabis use disorder, moderate, dependence F12.20 and Suicidal risk R45.[address] 36575- 1055 Sep, [place] [address] 59747- 9934 Jul, Bipolar disorder, unspecified F31.9 ; PTSD (post-traumatic stress disorder) F43.10 and Panic disorder with agoraphobia F40.01 [place] [id number] [place] [address] 89996- 5150 Jul, Obstructive sleep apnea syndrome G47.33 ; Moderate persistent asthma without complication J45.40 and Cigarette nicotine dependence with other nicotine-induced disorder F17.218 [place] [id number] [place] [address] 09548- 6374 Jul, [place] [address] 64954- 8257 Jul, [place] [address] [id number]- 5530 May, [place] [address] 78211- 8725 May, [place] [address] [place] [address]- 7515 May, [place] [id number] [place] [address] 44576- 6610 Apr, [place] [id number] [place] [address] 02155- 8958 Apr, Bipolar disorder, unspecified F31.9 ; PTSD (post-traumatic stress disorder) F43.10 ; Panic disorder with agoraphobia F40.01 and Cannabis use disorder, moderate, dependence F12.20 [place] [id number] [place] [address] 89787- 7053 Mar, Uncomplicated asthma, unspecified asthma severity J45.909 [place] [id number] [place] [address] 05824- 2066 Mar, [place] [address] 29178- 7963 Mar, Moderate persistent asthma without complication J45.40 ; Gastroesophageal reflux disease without esophagitis K21.9 and Cigarette nicotine dependence with other nicotine-induced disorder F17.218 [place] [id number] [place] [address] 77591- 6558 Feb, [place] [id number] [place] [address] 33359- 4462 Jan, Bipolar disorder, unspecified F31.9 ; PTSD (post-traumatic stress disorder) F43.10 ; Panic disorder with agoraphobia F40.01 and Cannabis use disorder, moderate, dependence F12.20 [place] [address] [place] [address] 55732- 6193 December, [place] [id number] [place] [address] 76076- 3922 Nov, [place] [id number] [place] [address] 52330- 3915 Nov, Bipolar disorder, unspecified F31.9 ; PTSD (post-traumatic stress disorder) F43.10 ; Panic disorder with agoraphobia F40.01 and Cannabis use disorder, moderate, dependence F12.20 [place] [address] [place] [address] 97530- 5074 Oct, [place] [id number] [place] [address] 85348- 3065 Oct, [place] [address] [place] [address] 08353- 7139 Sep, [place] [id number] [place] [address] 88288- 1710 Sep, Bipolar disorder, unspecified F31.9 ; PTSD (post-traumatic stress disorder) F43.10 ; Panic disorder with agoraphobia F40.01 and Cannabis use disorder, moderate, dependence F12.20 [place] [id number] [place] [address] 84022- 8634 Aug, [id number] [place] [address] 99173- 0850 Aug, [place] [id number] [place] [address] 08397- 4068 Aug, Bipolar disorder, unspecified F31.9 ; PTSD (post-traumatic stress disorder) F43.10 ; Panic disorder with agoraphobia F40.01 and Cannabis use disorder, moderate, dependence F12.20 [address] [place] [address] 30093- 4227 Jul, [place] [id number] [place] [address] 46862- 1785 24 Apr, 2015 GERD (gastroesophageal reflux disease) 530.81 and Internal hemorrhoids 455.0 [id number] [place] [address] 62172- 5712 Feb, Rectal bleeding 569.3 and Hemorrhoids 455.6 [id number] [place] [address] 44026- 3382 Jan, Sinusitis 473.9 and Otitis media 382.9 [facility] [place] [facility] [address] [id number] [place] [address]- 7215 December, [facility] [place] [facility] [address] [id number] [place] [address]- 1899 Nov, [facility] [place] [facility] [address] [id number] [place] 2861 Nov, [facility] [place] [facility] [address] [id number] [place] 9200 Oct, [facility] [place] [facility] [address] [id number] [place] [address]- 8613 Oct, [facility] [place] [facility] [address] [id number] [place] [address]- 1795 Sep, [facility] [place] [facility] [address] [facility] [id number] [place] [address]- 3757 Sep, [facility] [place] [facility] [address] [facility] [id number], [place] [address]- 4563 Aug, [facility] [place] [facility] [address] [facility] [id number], [place] [address]- 0080 Aug, [facility] [place] [facility] [address] [facility] [id number], [place] [address]- 1411 Jul, [facility] [place] [facility] [address] [facility] [id number], [place] [address]- 4668 Jul, [facility] [place] [facility] [address] [facility] [id number], [place] [address]- 9797 Jul, [facility] [place] [facility] [address] [facility] [id number], [place] [address]- 3246 Jul, [facility] [place] [facility] [address] [facility] [id number][place] 5612 Jul, [facility] [place] [facility] [address] [facility] [id number] 8045 Jul, [facility] [place] [facility] [address] [id number], [place] [address]- 0144 Jul, [facility] [place] [facility] [address] [id number] [place] [address]- 8426 Jul, [facility] [place] [facility] [address] [id number] [place] [address]- 9818 Jun, [facility] [place] [facility] [address] [facility] [id number] [place] [address]- 4530 Jun, [facility] [place] [facility] [address] [id number] [place] [address]- 7546 Jun, [facility] [place] [facility] [address] [id number] [place] [address]- 7293 Jun, [facility] [place] [facility] [address] [id number] [place] [address]- 6995 May, [facility] [place] [facility] [address] [facility] [id number], [place] [address]- 9966 May, [facility] [place] [facility] [address] [id number] [place] [address]- 7647 May, [facility] [place] [facility] [address] [facility] [id number] [place] [address]- 8536 May, [facility] [place] [facility] [address] [facility] [id number], [place] [address]- 3140 Apr, [facility] [place] [facility] [address] [id number], [place] [address]- 1558 Apr, [facility] [place] [facility] [address] [id number], [place] [address]- 8829 Apr, [facility] [place] [facility] [address] [id number] [place] [address]- 9659 Apr, [facility] [place] [facility] [address] [facility] [id number], [place] [address]- 7038 Mar, [facility] [place] [facility] [address] [facility] [id number] [place] [address]- 7783 Mar, [facility] [place] [facility] [address] [id number] [place] [address]- 5839 Mar, [facility] [place] [facility] [address] [id number] [place] 8717 Mar, [facility] [place] [facility] [address] [id number] [place] [address]- 7271 December, [facility] [place] [facility] [address] [id number] [place] [address]- 5536 December, [facility] [place] [facility] [address] [id number] [place] [address]- 8635 Nov, [facility] [place] [facility] [address] [id number] [place] [address]- 6755 Nov, [facility] [place] [facility] [address] [id number] [place] [address]- 7152 Sep, [facility] [place] [facility] [address] [id number] [place] [address]- 0304 Sep, [facility] [place] [facility] [address] [id number] [place] [address]- 1394 Sep, [facility] [place] [facility] [address] [id number] [place] [address]- 3164 Sep, [facility] [place] [facility] [address] [id number] [place] [address]- 4071 Aug, [facility] [place] [facility] [address] [id number] [place] [address]- 4642 Jul, [facility] [place] [facility] [address] [id number] [place] [address]- 9932 Jul, [facility] [place] [facility] [address] [id number] [place] [address]- 4230 Jun, [facility] [place] [facility] [address] [id number] [place] [address]- 3832 Jun, [facility] [place] [facility] [address] [id number] [place] [address]- 5702 18 May, 2013 [facility] [place] [facility] [address] [id number] [place] [address]- 6652 18 May, 2013 [facility] [place] [facility] [address] [id number] [place] [address]- 7346 07 May, 2013 [facility] [place] [facility] [address] [id number] [place] [address]- 6318 17 Apr, 2013 [facility] [place] [facility] [address] [id number] [place] [address]- 5910 16 Apr, 2013 [facility] [place] [facility] [address] [id number] [place] [address]- 1432 Apr, [facility] [place] [facility] [address] [id number] [place] [address]- 4536 Apr, [facility] [place] [facility] [address] [id number] [place] [address]- 2951 Mar, [facility] [place] [facility] [address] [id number] [place] [address]- 2159 Mar, [facility] [place] [facility] [address] [id number] [place] [address]- 9129 December, [facility] [place] [facility] [address] [id number] [place] [address]- 0977 Oct, [facility] [place] [facility] [address] [id number] [place] [address]- 4097 Oct, [facility] [place] [facility] [address] [id number] [place] [address]- 5653 Aug, [facility] [place] [facility] [address] [id number] [place] [address]- 8334 Jul, [facility] [place] [facility] [address] [id number] [place] [address]- 1001 Jul, [facility] [place] [facility] [address] [id number] [place] [address]- 6182 Jul, [facility] [place] [facility] [address] [id number] [place] [address] 2546 13 Jul, 2012 [facility] [address] [id number] [place] [address]- 2363 14 Jun, 2012 [facility] [address] [id number] [place] [address]- 2546 14 Jun, 2012 [facility] [address] [id number] [place] [address]- 6406 14 Mar, 2012 [facility] [address] [id number] [place] [address]- 2546 16 Feb, 2012 [facility] [address] [id number] [place] [address]- 5646 16 Feb, 2012 [facility] [address] [id number] [place] [address]- 3846 December, [facility] [address] [id number] [place] [address]- 6106 17 Nov, 2011 [facility] [address] [id number] [place] [address]- 1815 Oct, [facility] [address] [id number] [place] [address]- 9866 Oct, [facility] [address] [id number] [place] [address]- 0896 Sep, [facility] [address] [id number] [place] [address]- 2546 Sep, [facility] [address] [id number] [place] [address]- 3766 Aug, [facility] [address] [id number] [place] [address]- 2546 Aug, [facility] [address] [id number] [place] [address] Jul, [facility] [address] [id number] [place] [address] Jul, [facility] [place] [address] [facility] [id number], [place] [address] Jul, [facility] [address] [id number], [place] [address] Jun, [facility] [place] [address] [facility] [id number], [place] [address] May, [facility] [address] [id number], [place] [address] Apr, [facility] [place] [address] [id number] [place] [address] Feb, [facility] [place] [address] [facility] [id number], [place] [address] Sep, [facility] [place] [address] [facility] [id number], [place] [address] Jul, [facility] [place] [address] [facility] [id number], [place] [address] Jul, [facility] [place] [address] [facility] [id number], [place] [address] Jul, [facility] [place] [address] [facility] [id number], [place] [address] Jul, [facility] [place] [address] [facility] [id number], [place] [address] Jun, [facility] [place] [address] [facility] [id number], [place] [address] Feb, [facility], [place] [address] [facility] [id number], [place] [address] Jan, [facility], [place] [address] [facility] [id number], [place] [address] Feb, [facility], [place] [address] [facility] [id number] [address], IMMUNIZATIONS No Known Immunizations SOCIAL HISTORY Never Assessed REASON FOR VISIT Med Refill PLAN OF CARE VITAL SIGNS MEDICATIONS Medication Instructions Dosage Frequency Start Date End Date Duration Status ProAir HFA 108 (90 Base) MCG/ACT 2 PUFFS NEEDED 4 TIMES A DAY, PRN WHEEZING INHALATION Active RESULTS No Results PROCEDURES No Known [...]
--- NOTE | 2018-05-13 11:37 | ED General ---
General Chief Complaint: Chest Wall/Rib Pain Stated Complaint: L SIDE PAIN Source of Information: Patient Exam Limitations: No Limitations History of Present Illness Date Seen by Provider: May 13, 2018 Time Seen by Provider: 11:35 Initial Comments To ER per EMS from home with reports of severe left lateral lower chest pain. Denies any known injury. He does smoke cigarettes and has a chronic cough but this is unchanged and no worse than usual. No fevers or chills. He had this pain a couple of months ago and was seen here in the emergency room and states that he was told it was a pulled muscle. The pain spontaneously resolved after a few days. About a week ago the pain recurred and today he is unable to move take a deep breath or talk without severe left lateral lower chest pain Timing/Duration: 1 Week, Getting Worse Severity: Severe Associated Systoms: Cough Allergies and Home Medications Allergies Coded Allergies: Penicillins (Unverified Allergy, Mild, 11/07/09) codeine (Unverified Allergy, Mild, 11/07/09) egg (Verified Allergy, Unknown, 09/15/16) Home Medications Albuterol 8.5 Gm Hfa.aer.ad, 2 PUFF IH QID PRN for SHORTNESS OF BREATH, ( Reported) NEEDED FOR SHORTNESS OF BREATH Beclomethasone Dipropionate 7.3 Gm Aer.w.adap, 2 PUFF IH BID, (Reported) 40 MCG Cefdinir 300 Mg Capsule, 300 MG PO BID Prescribed by: AMI CALLAHAN on 09/15/16 1213 Cyclobenzaprine HCl 10 Mg Tablet, 10 MG PO Q8H Prescribed by: BECCA BURK on 12/07/17 1032 Hydrocodone Bit/Acetaminophen 1 Each Tablet, 1 TAB PO BID PRN for PAIN, ( Reported) NEEDED FOR PAIN 5-325MG TABLET Hyoscyamine Sulfate 0.125 Mg Tab, 1-2 EACH PO Q4HR PRN PRN for CRAMPS Prescribed by: BECCA BURK on 12/22/13 1401 Ibuprofen 800 Mg Tablet, 800 MG PO q8h PRN for PAIN, (Reported) Lorazepam 1 Mg Tablet, 1 MG PO BID PRN for ANXIETY Prescribed by: AMI CALLAHAN on 09/15/16 1153 Methylprednisolone 4 Mg Tab.ds.pk, 4 MG PO UD Prescribed by: BECCA BURK on 12/07/17 1032 Montelukast Sodium 10 Mg Tablet, 10 MG PO DAILY, (Reported) Ondansetron Hcl 4 Mg Tab, 4 MG SL Q4H FOR NAUSEA AND VOMITING Prescribed by: BECCA BURK on 12/22/13 1401 Oxycodone HCl/Acetaminophen 1 Each Tablet, 1 EACH PO Q4H PRN for PAIN-MODERATE Prescribed by: AMI CALLAHAN on 05/13/18 1245 Patient Home Medication List Home Medication List Reviewed: Yes Review of Systems Review of Systems Constitutional: see HPI; No chills, No fever EENTM: see HPI Respiratory: see HPI, cough, short of breath Cardiovascular: no symptoms reported Genitourinary: no symptoms reported Musculoskeletal: no symptoms reported Skin: no symptoms reported Psychiatric/Neurological: No Symptoms Reported Hematologic/Lymphatic: No Symptoms Reported Past Xpsikjc-Fhotkv-Qrulqa Hx Patient Social History Drug of Choice: marijuana Type Used: Cigarettes 2nd Hand Smoke Exposure: Yes Recent Hopitalizations: No Past Medical History Surgeries: Yes Orthopedic Respiratory: Yes Asthma, COPD Cardiac: Yes Hypertension Neurological: No Genitourinary: No Gastrointestinal: Yes Gastroesophageal Reflux, Hemorrhoids Musculoskeletal: Yes Chronic Back Pain Endocrine: No HEENT: No Cancer: No Psychosocial: Yes (MOOD SWINGS) Sleep Difficulties, Depression Integumentary: No Blood Disorders: No Physical Exam Vital Signs Vital Signs - First Documented 05/13/18 11:26 Temp 97.3 Pulse 75 Resp 18 B/P (MAP) 117/82 (94) Pulse Ox 100 O2 Delivery Room Air Capillary Refill : Height, Weight, BMI Height: 6'4.00" Weight: 200lbs. 0oz. [id number]; BMI Method:Stated General Appearance: No Apparent Distress, WD/WN Eyes: Bilateral Eye Normal Inspection, Bilateral Eye PERRL, Bilateral Eye EOMI HEENT: PERRL/EOMI, TMs Normal Neck: Full Range of Motion, Normal Inspection Respiratory: Normal Breath Sounds, No Accessory Muscle Use, No Respiratory Distress, Other (the left lateral lower chest wall is very tender to palpation. There is no deformity, no crepitus, no erythema and no lesions, no ecchymosis.) Cardiovascular: Regular Rate, Rhythm, Normal Peripheral Pulses Gastrointestinal: Non Tender, Soft Extremity: Normal Capillary Refill, Normal Inspection Neurologic/Psychiatric: Alert, Oriented x3 Progress/Results/Core Measures Suspected Sepsis SIRS Temperature: Pulse: Respiratory Rate: Laboratory Tests 05/13/18 11:20: White Blood Count 16.2H Blood Pressure / Mean: Laboratory Tests 05/13/18 11:20: Creatinine 1.06, Platelet Count 303, Total Bilirubin 0.3 Results/Orders Lab Results Laboratory Tests Test 05/13/18 11:20 Range/Units White Blood Count 16.2 H 4.3-11.0 10^3/uL Red Blood Count 5.05 4.35-5.85 10^6/uL Hemoglobin 15.7 13.3-17.7 G/DL Hematocrit 44 40-54 % Mean Corpuscular Volume 87 80-99 FL Mean Corpuscular Hemoglobin 31 25-34 PG Mean Corpuscular Hemoglobin Concent 36 32-36 G/DL Red Cell Distribution Width 13.6 10.0-14.5 % Platelet Count 303 130-400 10^3/uL Mean Platelet Volume 9.5 7.4-10.4 FL Neutrophils (%) (Auto) 78 H 42-75 % Lymphocytes (%) (Auto) 12 12-44 % Monocytes (%) (Auto) 8 0-12 % Eosinophils (%) (Auto) 2 0-10 % Basophils (%) (Auto) 1 0-10 % Neutrophils # (Auto) 12.6 H 1.8-7.8 X 10^3 Lymphocytes # (Auto) 1.9 1.0-4.0 X 10^3 Monocytes # (Auto) 1.2 H 0.0-1.0 X 10^3 Eosinophils # (Auto) 0.4 H 0.0-0.3 10^3/uL Basophils # (Auto) 0.1 0.0-0.1 10^3/uL Neutrophils % (Manual) 72 % Lymphocytes % (Manual) 17 % Monocytes % (Manual) 3 % Eosinophils % (Manual) 0 % Basophils % (Manual) 1 % Band Neutrophils 1 % Reactive Lymphocytes 6 % Blood Morphology Comment NORMAL Sodium Level 139 135-145 MMOL/L Potassium Level 4.2 3.6-5.0 MMOL/L Chloride Level 106 98-107 MMOL/L Carbon Dioxide Level 23 21-32 MMOL/L Anion Gap 10 5-14 MMOL/L Blood Urea Nitrogen 12 7-18 MG/DL Creatinine 1.06 0.60-1.30 MG/DL Estimat Glomerular Filtration Rate > 60 BUN/Creatinine Ratio 11 Glucose Level 89 70-105 MG/DL Calcium Level 9.5 8.5-10.1 MG/DL Corrected Calcium 8.5-10.1 MG/DL Total Bilirubin 0.3 0.1-1.0 MG/DL Aspartate Amino Transf (AST/SGOT) 12 5-34 U/L Alanine Aminotransferase (ALT/SGPT) 15 0-55 U/L Alkaline Phosphatase 80 40-136 U/L Total Protein 7.4 6.4-8.2 GM/DL Albumin 4.6 H 3.2-4.5 GM/DL My Orders Orders - AMI CALLAHAN APRN Cbc With Automated Diff (05/13/18 11:33) Comprehensive Metabolic Panel (05/13/18 11:33) Iv Heplock-Insert (Order) (05/13/18 11:33) Ct Chest/Abdomen W (05/13/18 11:33) Morphine Injection (Morphine Injection (05/13/18 11:45) Ketorolac Injection (Toradol Injection) (05/13/18 11:45) Ns Iv 1000 Ml (Sodium Chloride 0.9%) (05/13/18 11:45) Chest 1 View, Ap/Pa Only (05/13/18 11:37) Iohexol Injection (Omnipaque 350 Mg/Ml 1 (05/13/18 11:45) Ns (Ivpb) (Sodium Chloride 0.9%) (05/13/18 11:45) Manual Differential (05/13/18 11:20) Contrast Received (Contrast Received) (05/13/18 12:30) Lorazepam Injection (Ativan Injection) (05/13/18 12:30) Drug Screen Stat (Urine) (05/13/18 12:26) Ua Culture If Indicated (05/13/18 12:28) Incentive Spirometry Initial (05/13/18 12:45) Incentive Spirometry (Nursing) Q2H (05/13/18 12:45) Fentanyl Injection (Sublimaze Injection (05/13/18 13:00) Medications Given in ED Current Medications Medications Dose Ordered Sig/Adonay Route Start Time Stop Time Status Last Admin Dose Admin Iohexol 100 ml ONCE ONCE IV 05/13/18 11:45 05/13/18 12:19 DC 05/13/18 12:06 100 ML Ketorolac Tromethamine 15 mg ONCE ONCE IVP 05/13/18 11:45 05/13/18 11:46 DC 05/13/18 11:43 15 MG Lorazepam 1 mg ONCE PRN IVP 05/13/18 12:30 05/13/18 12:30 1 MG Morphine Sulfate 4 mg ONCE ONCE IVP 05/13/18 11:45 05/13/18 11:46 DC 05/13/18 11:37 4 MG Sodium Chloride 250 ml ONCE ONCE IV 05/13/18 11:45 05/13/18 12:19 DC 05/13/18 12:06 80 ML Vital Signs/I&O 05/13/18 11:26 Temp 97.3 Pulse 75 Resp 18 B/P (MAP) 117/82 (94) Pulse Ox 100 O2 Delivery Room Air Capillary Refill : Diagnostic Imaging Diagonstic Imaging: CT Plain Films/CT/US/NM/MRI: chest Comments NAME: [facility] REC#: [id number] PT STATUS: REG ER : 1980 PHYSICIAN: AMI CALLAHAN FINANCIAL MANAGEMENT ANALYST ADMIT DATE: 05/13/18/ER Draft Date of Exam:05/13/18 CT CHEST/ABDOMEN W PROCEDURE: CT chest and abdomen with contrast. TECHNIQUE: Multiple contiguous axial images were obtained through the chest and abdomen after the administration of intravenous contrast. INDICATION: Severe left-sided pain. CT CHEST: No axillary, hilar or mediastinal lymphadenopathy is seen. No pericardial or pleural fluid is identified. No pneumothorax is seen. There is dependent atelectasis both lung bases. Lungs are otherwise clear. There appears fracture of the left lateral seventh rib. No other abnormalities are seen. IMPRESSION: Left lateral seventh rib fracture. No other abnormality is seen. CT ABDOMEN: The liver, gallbladder and spleen are unremarkable. The pancreas is unremarkable. No adrenal mass is seen. Kidneys are unremarkable. The aorta is non-aneurysmal. The small and large bowel loops are nonobstructed. There is no ascites or free air. IMPRESSION: Unremarkable CT of the abdomen. Dictated on workstation # [id number] Dict: 05/13/18 1235 Trans: 05/13/18 1240 [facility] [id number] Interpreted by: MORIAH HORVATH MD Electronically signed by: Departure Communication (Admissions) 1225-Pt laying in bed moaning loudly and screaming about the pain. No improvement with morphine and ativan. Appears anxious, will try lorazepam. 1252- After the lorazepam he is much more relaxed. He states that it helped his pain a little but he still has pain whenever he moves. I discussed with him the rib fracture, he is unsure how he may have gotten this. Advised him that he is going to hurt whenever he moves, sneezes, coughs or takes a deep breath for the next couple of weeks and there is no way around this. I will prescribe Percocet for pain control. RT is in the room at this time to instruct on incentive spirometry. Impression Primary Impression: Left rib fracture Disposition: 01 HOME, SELF-CARE Condition: Stable Departure-Patient Inst. Decision time for Depature: 12:44 Referrals: PETRA GARZON MD (PCP/Family) Primary Care Physician Patient Instructions: Rib Fracture (DC) Add. Discharge Instructions: 1. Continue with ibuprofen for pain control in addition to the prescribed pain medication. This is going to be sore for a couple of weeks. There is no way around that. Return to ER for shortness of breath or fevers. It is important to make sure that you take a deep breath to prevent development of pneumonia. Use the incentive spirometer device given to you in the emergency room every 2 hours while awake for the next 2 weeks. Scripts Oxycodone HCl/Acetaminophen (Percocet 5-325 mg Tablet) 1 Each Tablet 1 EACH PO Q4H PRN for PAIN-MODERATE MDD 6, #20 TAB Prov: AMI CALLAHAN APRN 05/13/18 AMI CALLAHAN APRN May 13, 2018 11:37
--- OUTSIDE RECORDS SUMMARY | 2018-05-13 11:37 | XMS REPORT ---
Author Author JAGRUTI KORY Organization [facility] Address [address] [place] [address] Care Team Providers Care Recruiting Manager Name Role Phone KORY CHAND Unavailable PROBLEMS Type Condition ICD9-CM Code KJA05-MJ Code Onset Dates Condition Status SNOMED Code Problem Obstructive sleep apnea syndrome G47.33 Active 81379054 Problem Cannabis dependence F12.20 Active 11683231 Problem Anxiety, generalized F41.1 Active 63735565 Problem Other chronic pain G89.29 Active 76483078 Problem Adjustment disorder with depressed mood F43.21 Active 75814294 Problem Chronic post-traumatic stress disorder (PTSD) F43.12 Active 106435853 Problem Post-traumatic stress disorder F43.10 Active 99650213 Problem Adjustment disorder with anxious mood F43.22 Active 69876829 Problem Adjustment disorder with mixed anxiety and depressed mood F43.23 Active 88392042 Problem Bipolar disorder, unspecified F31.9 Active 75213524 Problem Gastroesophageal reflux disease without esophagitis K21.9 Active 748291479 Problem Cannabis use disorder, moderate, dependence F12.20 Active 42217779 Problem Cigarette nicotine dependence with other nicotine-induced disorder F17.218 Active 46706893 Problem Panic disorder with agoraphobia F40.01 Active 97911535 Problem Moderate persistent asthma without complication J45.40 Active 040041177 ALLERGIES Substance Reaction Event Type Date Status Penicillin V Potassium Unknown Drug Allergy Oct, Active Advair Diskus Unknown Drug Allergy Oct, Active ENCOUNTERS Encounter Location Date Diagnosis [facility] [address] [facility] [id number] [address] Mar, [facility] [address] [id number] [address] Jan, Low back pain M54.5 ; Moderate persistent asthma without complication J45.40 and Other chronic pain G89.29 [facility] [id number] [place] [address]- 9702 Jan, Moderate persistent asthma without complication J45.40 ; Low back pain M54.5 ; Other chronic pain G89.29 ; Gastroesophageal reflux disease without esophagitis K21.9 and Cigarette nicotine dependence with other nicotine-induced disorder F17.218 [place] [id number] [place] [address] 01422- 3943 December, Bipolar disorder, unspecified F31.9 ; Panic disorder with agoraphobia F40.01 ; Cannabis use disorder, moderate, dependence F12.20 and Chronic post-traumatic stress disorder (PTSD) F43.12 [place] [address] 161647- 7145 December, [place] [id number] [place] [address] 22588- 3526 December, [place] [id number] [place] [address] 01434- 5020 Nov, [place] [id number] [place] [address] 04112- 7325 Oct, Bipolar disorder, unspecified F31.9 ; Chronic post- traumatic stress disorder (PTSD) F43.12 ; Panic disorder with agoraphobia F40.01 and Cannabis use disorder, moderate, dependence F12.20 [place] [id number] [place] [address] 92012- 9224 Sep, [place] [id number] [place] [address] 08836- 4574 Sep, [place] [id number] [place] [address] 79204- 9467 Aug, [place] [id number] [place] [address] 89243- 300 Aug, Cannabis use disorder, moderate, dependence F12.20 ; Panic disorder with agoraphobia F40.01 and Bipolar affective disorder, currently depressed, moderate F31.32 [place] [address] [address]24- 3106 May, Diarrhea of presumed infectious origin A09 and Nausea and vomiting, intractability of vomiting not specified, unspecified vomiting type R11.2 [place] [address] 09198- 2122 Apr, [place] [address] 57545- 6140 Mar, Nausea R11.0 and Gastroenteritis K52.9 [place] [address] 80328- 6385 Mar, Gastroesophageal reflux disease without esophagitis K21.9 [place] [address] 398580- 4915 Mar, Gastroesophageal reflux disease without esophagitis K21.9 [place] [address] 56417- 9513 Mar, [place] [address] 30875- 1758 Mar, [place] [address] 29952- 8683 Mar, [place] [address] 08552- 6420 Feb, Acute pain of right shoulder M25.511 and Muscle spasm M62.838 [place] [address] 76274- 6355 Feb, Acute labyrinthitis, unspecified laterality H83.09 [place] [address] 93518- 1424 December, [place] [address] 31076- 8954 December, [place] [address] 85870- 6756 December, Cannabis use disorder, moderate, dependence F12.20 ; Anxiety , generalized F41.1 ; Adjustment disorder with mixed anxiety and depressed mood F43.23 and Chronic post-traumatic stress disorder (PTSD) F43.12 [place] [id number] [place] [address] December, [place] [id number] [place] [address] 72892- 4049 December, [place] [address] 22386- 6099 Nov, Acute nasopharyngitis J00 [place] [id number] [place] [address] 03113- 8545 Nov, Cannabis use disorder, moderate, dependence F12.20 ; Anxiety , generalized F41.1 ; Adjustment disorder with mixed anxiety and depressed mood F43.23 and Chronic post-traumatic stress disorder (PTSD) F43.12 [place] [id number] [place] [address] 90662- 4964 Nov, Cannabis use disorder, moderate, dependence F12.20 ; Anxiety , generalized F41.1 ; Adjustment disorder with mixed anxiety and depressed mood F43.23 and Chronic post-traumatic stress disorder (PTSD) F43.12 [place] [id number] [place] [address] 37312- 4609 Oct, Diarrhea, unspecified R19.7 ; Vomiting, unspecified R11.10 and Viral gastroenteritis A08.4 [place] [id number] [place] [address] 25911- 5864 Oct, Bipolar disorder, unspecified F31.9 ; Panic disorder with agoraphobia F40.01 ; Cannabis use disorder, moderate, dependence F12.20 ; Cigarette nicotine dependence with other nicotine-induced disorder F17.218 ; Anxiety, generalized F41.1 ; Post-traumatic stress disorder F43.10 and Adjustment disorder with mixed anxiety and depressed mood F43.23 [place] [id number] [place] [address] 20098- 7612 Oct, Bipolar disorder, unspecified F31.9 ; Chronic post- traumatic stress disorder (PTSD) F43.12 ; Panic disorder with agoraphobia F40.01 and Cannabis use disorder, moderate, dependence F12.20 [place] [address] [place] [address] 10440- 9338 Oct, Bipolar disorder, unspecified F31.9 ; Panic disorder with agoraphobia F40.01 ; Cannabis use disorder, moderate, dependence F12.20 ; Cigarette nicotine dependence with other nicotine-induced disorder F17.218 ; Anxiety, generalized F41.1 ; Post-traumatic stress disorder F43.10 and Adjustment disorder with mixed anxiety and depressed mood F43.23 [place] [id number] [place] [address] 95065- 3327 14 Oct, 2016 Viral gastroenteritis A08.4 [place] [place] [id number] [place] [address] 65519- 3083 09 Oct, 2016 Anxiety, generalized F41.1 ; Post-traumatic stress disorder F43.10 ; Adjustment disorder with depressed mood F43.21 and Adjustment disorder with anxious mood F43.22 [place] [id number] [place] [address] 90201- 6439 07 Oct, 2016 Panic disorder with agoraphobia F40.01 ; Cannabis use disorder, moderate, dependence F12.20 ; Bipolar disorder, unspecified F31.9 ; Cigarette nicotine dependence with other nicotine-induced disorder F17.218 ; Adjustment disorder with anxious mood F43.22 ; Anxiety, generalized F41.1 ; Post -traumatic stress disorder F43.10 and Cannabis dependence F12.20 [place] [address] [place] [address] 48506- 5619 Oct, Bipolar disorder, unspecified F31.9 and Chronic post- traumatic stress disorder (PTSD) F43.12 [place] [id number] [place] [address] 00323- 9928 Oct, Bipolar disorder, unspecified F31.9 and Chronic post- traumatic stress disorder (PTSD) F43.12 [place] [id number] [place] [address] 41779- 4248 28 Sep, 2016 Bipolar disorder, unspecified F31.9 ; Panic disorder with agoraphobia F40.01 ; PTSD (post-traumatic stress disorder) F43.10 ; Cannabis use disorder, moderate, dependence F12.20 ; Cannabis dependence F12.20 and Anxiety, generalized F41.1 [place] [id number] [place] [address] 98356- 1034 Sep, Cannabis use disorder, moderate, dependence F12.20 ; Anxiety , generalized F41.1 and Adjustment disorder with mixed anxiety and depressed mood F43.23 [place] [id number] [place] [address] 56719- 9410 15 Sep, 2016 Bipolar disorder, unspecified F31.9 ; Panic disorder with agoraphobia F40.01 ; PTSD (post-traumatic stress disorder) F43.10 ; Cannabis use disorder, moderate, dependence F12.20 ; Cannabis dependence F12.20 and Anxiety, generalized F41.1 [place] [id number] [place] [address] 06225- 3862 Sep, Bipolar disorder, unspecified F31.9 ; Panic disorder with agoraphobia F40.01 ; PTSD (post-traumatic stress disorder) F43.10 ; Cannabis use disorder, moderate, dependence F12.20 ; Cannabis dependence F12.20 and Anxiety, generalized F41.1 [place] [id number] [place] [address] 38687- 3563 Sep, Bipolar disorder, unspecified F31.9 ; Post-traumatic stress disorder F43.10 and Cannabis dependence F12.20 [place] [address] [place] [address] Sep, [place] [id number] [place] [address] 41801- 4526 08 Sep, 2016 Suicidal behavior without attempted self-injury R46.89 [place] [id number] [place] [address] 91876- 8138 Sep, [place] [id number] [place] [address] 69715- 7424 Sep, Cannabis use disorder, moderate, dependence F12.20 ; Panic disorder with agoraphobia F40.01 ; Bipolar disorder, unspecified F31.9 and Anxiety, generalized F41.1 [place] [id number] [place] [address] 41461- 0590 Sep, Bipolar disorder, unspecified F31.9 ; PTSD (post-traumatic stress disorder) F43.10 ; Panic disorder with agoraphobia F40.01 and Cannabis use disorder, moderate, dependence F12.20 [place] [id number] [place] [address] 46541- 0013 Sep, [address] 99471- 5106 Sep, PTSD (post-traumatic stress disorder) F43.10 ; Cannabis use disorder, moderate, dependence F12.20 and Suicidal risk R45.[address] 57374- 3516 Sep, [place] [id number] [place] [address] 36927- 0349 Jul, Bipolar disorder, unspecified F31.9 ; PTSD (post-traumatic stress disorder) F43.10 and Panic disorder with agoraphobia F40.01 [place] [id number] [place] [address] 08714- 9193 Jul, Obstructive sleep apnea syndrome G47.33 ; Moderate persistent asthma without complication J45.40 and Cigarette nicotine dependence with other nicotine-induced disorder F17.218 [place] [id number] [place] [address] 65922- 6562 Jul, [address] 33400- 9485 Jul, [place] [id number] [place] [address] 51597- 9436 May, [place] [address]- 2546 May, [place] [address] [place] [address] 02517- 9492 May, [place] [id number] [place] [address] 40161- 1694 Apr, [place] [id number] [place] [address] 29250- 6917 Apr, Bipolar disorder, unspecified F31.9 ; PTSD (post-traumatic stress disorder) F43.10 ; Panic disorder with agoraphobia F40.01 and Cannabis use disorder, moderate, dependence F12.20 [place] [id number] [place] [address] 15615- 2119 Mar, Uncomplicated asthma, unspecified asthma severity J45.909 [place] [id number] [place] [address] 39612- 7750 Mar, [place] [id number] [place] [address] 16558- 8788 Mar, Moderate persistent asthma without complication J45.40 ; Gastroesophageal reflux disease without esophagitis K21.9 and Cigarette nicotine dependence with other nicotine-induced disorder F17.218 [place] [id number] [place] [address] 61292- 4479 Feb, [place] [id number] [place] [address] 80383- 4786 Jan, Bipolar disorder, unspecified F31.9 ; PTSD (post-traumatic stress disorder) F43.10 ; Panic disorder with agoraphobia F40.01 and Cannabis use disorder, moderate, dependence F12.20 [place] [id number] [place] [address] 21366- 0451 December, [place] [id number] [place] [address] 68441- 9289 Nov, [place] [id number] [place] [address] 88632- 4489 Nov, Bipolar disorder, unspecified F31.9 ; PTSD (post-traumatic stress disorder) F43.10 ; Panic disorder with agoraphobia F40.01 and Cannabis use disorder, moderate, dependence F12.20 [place] [address] [place] [address]- 4407 Oct, [place] [id number] [place] [address] 44899- 3690 Oct, [place] [id number] [place] [address] 97917- 4655 Sep, [place] [id number] [place] [address] 18863- 5555 Sep, Bipolar disorder, unspecified F31.9 ; PTSD (post-traumatic stress disorder) F43.10 ; Panic disorder with agoraphobia F40.01 and Cannabis use disorder, moderate, dependence F12.20 [place] [id number] [place] [address] 92660- 8549 Aug, [place] [id number] [place] [address] 03183- 1138 Aug, [place] [id number] [place] [address] 65626- 1903 Aug, Bipolar disorder, unspecified F31.9 ; PTSD (post-traumatic stress disorder) F43.10 ; Panic disorder with agoraphobia F40.01 and Cannabis use disorder, moderate, dependence F12.20 [place] [id number] [place] [address] 82614- 7060 Jul, [place] [id number] [place] [address] 27718- 3396 Apr, GERD (gastroesophageal reflux disease) 530.81 and Internal hemorrhoids 455.0 [place] [id number] [place] [address] 51901- 0437 Feb, Rectal bleeding 569.3 and Hemorrhoids 455.6 [place] [address] [place] [address]- 8038 Jan, Sinusitis 473.9 and Otitis media 382.9 [facility] [id number] [place] [address]- 9038 December, [facility] [place] [facility] [address] [facility] [id number] [place] [address]- 2989 Nov, [facility] [place] [facility] [address] [facility] [id number] [place] [address], [place] [address]- 6781 Nov, [facility] [place] [facility] [address] [facility] [id number] [place] [address], [place] [address]- 4622 Oct, [facility] [place] [facility] [id number] [place] [address], [place] [address]- 0217 Oct, [facility] [id number] [place] [address], [place] [address]- 2372 Sep, [facility] [id number] [place] [address], [place] [address]- 9433 Sep, [facility] [address] [place] [address]- 8553 Aug, [facility] [address] [place] [address]- 0638 Aug, [facility] [place] [facility] [address] [place] [address]- 1986 Jul, [facility] [place] [facility] [id number] [address]- 7395 Jul, [facility] [place] [facility] [id number] [place] [address]- 7684 Jul, [facility] [place] [facility] [address] [place] [address]- 8091 Jul, [facility] [place] [facility] [id number] [address]- 0606 Jul, [facility] [place] [facility] [address], [place] [address]- 3002 Jul, [facility] [place] [facility] [address] [id number] [place]- 8513 Jul, [facility] [place] [facility] [address] [id number] [place] [address]- 2841 Jul, [facility] [place] [facility] [address] [facility] [id number] [place] 6215 Jun, [facility] [place] [facility] [address] [id number] [place] [address]- 5294 Jun, [facility] [place] [facility] [address] [id number] [place] [address]- 0218 Jun, [facility] [place] [facility] [address] [id number] [place] [address]- 1103 Jun, [facility] [place] [facility] [address] [id number] [place] [address]- 9112 May, [facility] [place] [facility] [address] [id number], [place] [address]- 6760 May, [facility] [place] [facility] [address] [id number], [place] [address]- 4333 May, [facility] [place] [facility] [address] [id number], [place] [address]- 5766 May, [facility] [place] [facility] [address] [id number], [place] [address]- 6271 Apr, [facility] [place] [facility] [address] [id number], [place] [address]- 9784 Apr, [facility] [place] [facility] [address] [id number], [place] [address]- 5955 Apr, [facility] [place] [facility] [address] [id number], [place] [address]- 8529 Apr, [facility] [place] [facility] [address] [id number], [place] [address]- 2146 Mar, [facility] [place] [facility] [address] [id number] [place] [address]- 8516 Mar, [facility] [address] [id number] [place] [address]- 8578 Mar, [facility] [place] [facility] [address] [id number] [place] [address]- 4306 Mar, [facility] [place] [facility] [address] [id number] [place] [address]- 9944 December, [facility] [place] [facility] [address] [id number] [place] [address]- 3018 December, [facility] [place] [facility] [address] [id number] [place] [address]- 3888 Nov, [facility] [place] [facility] [address] [id number] [place] [address]- 9116 Nov, [facility] [place] [facility] [address] [id number] [place] [address]- 2653 Sep, [facility] [place] [facility] [address] [id number] [place] [address]- 2692 Sep, [facility] [place] [facility] [address] [id number] [place] [address]- 6659 Sep, [facility] [place] [facility] [address] [facility] [id number] [place] [address]- 8345 Sep, [facility] [place] [facility] [address] [id number] [place] [address]- 0585 Aug, [facility] [place] [facility] [address] [id number] [place] [address]- 3649 Jul, [facility] [place] [facility] [address] [id number] [place] [address]- 5456 Jul, [facility] [place] [facility] [address] [id number] [place] [address]- 9556 Jun, [facility] [place] [facility] [address] [id number] [place] [address]- 5960 Jun, [facility] [place] [facility] [address] [id number] [place] [address]- 3159 May, [facility] [place] [facility] [address] [id number] [place] [address]- 6987 18 May, 2013 [facility] [place] [facility] [address] [id number] [place] [address]- 3991 May, [facility] [place] [facility] [address] [id number] [place] [address]- 2492 17 Apr, 2013 [facility] [place] [facility] [address] [id number] [place] [address]- 8371 16 Apr, 2013 [facility] [place] [facility] [address] [id number] [place] [address]- 0182 Apr, [facility] [place] [facility] [address] [id number] [place] [address]- 8252 Apr, [facility] [place] [facility] [address] [id number] [place] [address]- 0990 Mar, [facility] [place] [facility] [address] [id number] [place] [address]- 1377 Mar, [facility] [place] [facility] [address] [id number] [place] [address]- 6410 December, [facility] [place] [facility] [address] [id number], [place] [address]- 1785 Oct, [facility] [place] [facility] [address] [id number], [place] [address]- 0255 Oct, [facility] [place] [facility] [address] [id number] [place] [address]- 0205 Aug, [facility] [place] [facility] [address] [id number], [place] [address]- 5466 Jul, [facility] [place] [facility] [address] [id number] [place] [address]- 3400 Jul, [facility] [place] [facility] [address] [id number] [place] [address]- 9621 13 Jul, 2012 [facility] [address] [id number] [place] [address]- 5994 13 Jul, 2012 [facility] [place] [facility] [address] [id number] [place] [address]- 4813 14 Jun, 2012 [facility] [address] [id number] [place] [address]- 3680 14 Jun, 2012 [facility] [place] [facility] [address] [id number] [place] [address] 14 Mar, 2012 [facility] [address] [id number] [place] [address] 16 Feb, 2012 [facility] [place] [facility] [address] [id number] [place] [address] 16 Feb, 2012 [facility] [address] [id number] [place] [address] 15 Dec, 2011 [facility] [place] [facility] [address] [id number] [place] [address] 17 Nov, 2011 [facility] [place] [facility] [address] [id number] [place] [address] 23 Oct, 2011 [facility] [place] [facility] [address] [id number] [place] [address] Oct, [facility] [place] [facility] [address] [id number] [place] [address] 09 Sep, 2011 [facility] [place] [facility] [address] [id number] [place] [address] 03 Sep, 2011 [facility] [place] [facility] [address] [id number] [place] [address] 19 Aug, 2011 [facility] [place] [facility] [address] [id number] [place] [address] 13 Aug, 2011 [facility] [place] [facility] [address] [id number] [place] [address] Jul, [facility] [place] [facility] [address] [id number] [place] [address] Jul, [facility] [address] [id number] [place] [address] Jul, [facility] [address] [id number] [place] [address] Jun, [facility] [address] [id number] [place] [address] May, [facility] [address] [id number] [place] [address] Apr, [facility] [address] [id number] [place] [address] Feb, [facility] [address] [id number] [place] [address] Sep, [facility] [address] [id number] [place] [address] Jul, [facility] [address] [id number] [place] [address] Jul, [facility] [address] [id number] [place] [address] Jul, [facility] [address] [id number] [place] [address] Jul, [facility] [address] [id number] [place] [address] Jun, [facility] [facility] [address] [id number] [place] [address] Feb, [facility] [place] [facility] [address] [id number] [place] [address] Jan, [facility] [place] [facility] [address] [id number] [place] [address] Feb, [facility] [place] [facility] [address] [id number] [place] [address] Jul, IMMUNIZATIONS No Known Immunizations SOCIAL HISTORY Never Assessed REASON FOR VISIT f/u Arslan PLAN OF CARE Activity Details Follow Up 3 Months Reason: VITAL SIGNS Height 76 in 2017-10-22 Weight 231.0 lbs 2017-10-22 Heart Rate 68 bpm 2017-10-22 Respiratory Rate 20 2017-10-22 BMI 28.12 kg/m2 2017-10-22 Blood pressure systolic 110 mmHg 2017-10-22 Blood pressure diastolic 68 mmHg 2017-10-22 MEDICATIONS Medication Instructions Dosage Frequency Start Date End Date Duration Status Singulair 10 MG 1 TABLET BY ORAL ROUTE 1 TIME PER DAY Active Zofran 4 MG Orally Once a day 1 tablet 24h 24 May, 2017 14 days Active Symbicort 160-4.5 MCG/ACT Inhalation Twice a day 2 puffs 12h Mar, Active Omeprazole 20 MG Orally Once a day 1 CAPSULE 24h 30 days Active Ibuprofen 800 MG TAKE 1 TABLET (800 MG) BY ORAL ROUTE 3 TIMES PER DAY WITH FOOD 90 Active Gabapentin 300 mg Orally 3 times a day for anxiety 1 capsule Active Metoprolol Tartrate 25 MG Orally Twice a day for panic 1 tablet Jul, Active Neurontin 300 MG Orally Once a day as needed for anxiety 1 capsule 30 Not-Taking Loxapine Succinate 10 mg TAKE 4 CAPSULES BY MOUTH AT BEDTIME Active Advair Diskus 250-50 MCG/DOSE Inhalation Twice a day 1 puff 12h Active Nicorette 2 MG Mouth/Throat 4 times per day as needed. Follow package instructions for chew and park method 1 piece as needed Aug, Active Meclizine HCl 25 MG Orally TID PRN, dizziness 1 Feb, 0 days Active ProAir HFA 108 (90 Base) MCG/ACT 2 PUFFS NEEDED 4 TIMES A DAY, PRN WHEEZING INHALATION Active Lexapro 10 MG Orally Once a day 1 tablet 24h Active Qvar 40 MCG/ACT INHALE 2 PUFF BY INHALATION ROUTE 2 TIMES PER DAY Active RESULTS No Results PROCEDURES No Known [...]
--- OUTSIDE RECORDS SUMMARY | 2018-05-13 11:38 | XMS REPORT ---
Author Author JAGRUTI KORY Organization [facility] Address [address] [place] [address] Care Team Providers Care Table Filler Name Role Phone KORY CHAND Unavailable PROBLEMS Type Condition ICD9-CM Code ZNW18-GP Code Onset Dates Condition Status SNOMED Code Problem Obstructive sleep apnea syndrome G47.33 Active 46690356 Problem Cannabis dependence F12.20 Active 05635466 Problem Anxiety, generalized F41.1 Active 40541155 Problem Other chronic pain G89.29 Active 35216066 Problem Adjustment disorder with depressed mood F43.21 Active 49058101 Problem Chronic post-traumatic stress disorder (PTSD) F43.12 Active 447640185 Problem Post-traumatic stress disorder F43.10 Active 77541359 Problem Adjustment disorder with anxious mood F43.22 Active 08775422 Problem Adjustment disorder with mixed anxiety and depressed mood F43.23 Active 09661675 Problem Bipolar disorder, unspecified F31.9 Active 67062076 Problem Gastroesophageal reflux disease without esophagitis K21.9 Active 438550742 Problem Cannabis use disorder, moderate, dependence F12.20 Active 17991411 Problem Cigarette nicotine dependence with other nicotine-induced disorder F17.218 Active 60022433 Problem Panic disorder with agoraphobia F40.01 Active 03399599 Problem Moderate persistent asthma without complication J45.40 Active 739194657 ALLERGIES No Information ENCOUNTERS Encounter Location Date Diagnosis [facility] [id number] [address] Mar, [facility] [id number] [place] [address] 78828- 8407 Jan, Low back pain M54.5 ; Moderate persistent asthma without complication J45.40 and Other chronic pain G89.29 [facility] [id number] [address] Jan, Moderate persistent asthma without complication J45.40 ; Low back pain M54.5 ; Other chronic pain G89.29 ; Gastroesophageal reflux disease without esophagitis K21.9 and Cigarette nicotine dependence with other nicotine-induced disorder F17.218 [place] [id number] [place] [address] December, Bipolar disorder, unspecified F31.9 ; Panic disorder with agoraphobia F40.01 ; Cannabis use disorder, moderate, dependence F12.20 and Chronic post-traumatic stress disorder (PTSD) F43.12 [place] [address] [address]- [address] December, [place] [address] 815584- 7771 December, [place] [address] [address]- 3820 Nov, [address] [address]- [address] Oct, Bipolar disorder, unspecified F31.9 ; Chronic post- traumatic stress disorder (PTSD) F43.12 ; Panic disorder with agoraphobia F40.01 and Cannabis use disorder, moderate, dependence F12.20 [place] [id number] [place] [address] 90406- 8746 Sep, [place] [id number] [place] [address] 71617- 4191 Sep, [place] [id number] [place] [address] 90727- 3892 Aug, [id number] [place] [address] 28901- 5209 Aug, Cannabis use disorder, moderate, dependence F12.20 ; Panic disorder with agoraphobia F40.01 and Bipolar affective disorder, currently depressed, moderate F31.32 [address] [id number] [place] [address] 40227- 7962 May, Diarrhea of presumed infectious origin A09 and Nausea and vomiting, intractability of vomiting not specified, unspecified vomiting type R11.2 [place] [id number] [place] [address] 65490- 9726 Apr, [place] [id number] [place] [address] 12490- 1944 Mar, Nausea R11.0 and Gastroenteritis K52.9 [place] [address] 07441- 9783 Mar, Gastroesophageal reflux disease without esophagitis K21.9 [place] [address] 073282- 7758 Mar, Gastroesophageal reflux disease without esophagitis K21.9 [place] [address] 95981- 4962 Mar, [place] [address] 56948- 8950 Mar, [place] [id number] [place] [address] 56422- 8465 Mar, [place] [address] 42154- 3487 Feb, Acute pain of right shoulder M25.511 and Muscle spasm M62.838 [place] [id number] [place] [address] 49032- 0675 Feb, Acute labyrinthitis, unspecified laterality H83.09 [place] [id number] [place] [address] 42750- 1477 December, [place] [address] 63306- 4033 December, [place] [id number] [place] [address] 14703- 5280 December, Cannabis use disorder, moderate, dependence F12.20 ; Anxiety , generalized F41.1 ; Adjustment disorder with mixed anxiety and depressed mood F43.23 and Chronic post-traumatic stress disorder (PTSD) F43.12 [place] [address] [address] 3145 December, [place] [id number] [place] [address] 739008- 5959 December, [place] [id number] [place] [address] 40788- 1750 Nov, Acute nasopharyngitis J00 [place] [id number] [place] [address] 08582- 6970 Nov, Cannabis use disorder, moderate, dependence F12.20 ; Anxiety , generalized F41.1 ; Adjustment disorder with mixed anxiety and depressed mood F43.23 and Chronic post-traumatic stress disorder (PTSD) F43.12 [place] [address] [address]- 3277 Nov, Cannabis use disorder, moderate, dependence F12.20 ; Anxiety , generalized F41.1 ; Adjustment disorder with mixed anxiety and depressed mood F43.23 and Chronic post-traumatic stress disorder (PTSD) F43.12 [place] [id number] [place] [address] 96313- 8992 Oct, Diarrhea, unspecified R19.7 ; Vomiting, unspecified R11.10 and Viral gastroenteritis A08.4 [place] [address] [address] 5317 Oct, Bipolar disorder, unspecified F31.9 ; Panic disorder with agoraphobia F40.01 ; Cannabis use disorder, moderate, dependence F12.20 ; Cigarette nicotine dependence with other nicotine-induced disorder F17.218 ; Anxiety, generalized F41.1 ; Post-traumatic stress disorder F43.10 and Adjustment disorder with mixed anxiety and depressed mood F43.23 [place] [address] [address] 39[address] Oct, Bipolar disorder, unspecified F31.9 ; Chronic post- traumatic stress disorder (PTSD) F43.12 ; Panic disorder with agoraphobia F40.01 and Cannabis use disorder, moderate, dependence F12.20 [place] [address] [place] [address] 95987- 1717 Oct, Bipolar disorder, unspecified F31.9 ; Panic disorder with agoraphobia F40.01 ; Cannabis use disorder, moderate, dependence F12.20 ; Cigarette nicotine dependence with other nicotine-induced disorder F17.218 ; Anxiety, generalized F41.1 ; Post-traumatic stress disorder F43.10 and Adjustment disorder with mixed anxiety and depressed mood F43.23 [place] [id number] [place] [address] 68265- 7946 14 Oct, 2016 Viral gastroenteritis A08.4 [address] [id number] [place] [address] 18403- 9191 09 Oct, 2016 Anxiety, generalized F41.1 ; Post-traumatic stress disorder F43.10 ; Adjustment disorder with depressed mood F43.21 and Adjustment disorder with anxious mood F43.22 [place] [id number] [place] [address] 13694- 7943 07 Oct, 2016 Panic disorder with agoraphobia F40.01 ; Cannabis use disorder, moderate, dependence F12.20 ; Bipolar disorder, unspecified F31.9 ; Cigarette nicotine dependence with other nicotine-induced disorder F17.218 ; Adjustment disorder with anxious mood F43.22 ; Anxiety, generalized F41.1 ; Post -traumatic stress disorder F43.10 and Cannabis dependence F12.20 [place] [id number] [place] [address] 68210- 2819 Oct, Bipolar disorder, unspecified F31.9 and Chronic post- traumatic stress disorder (PTSD) F43.12 [place] [id number] [place] [address] 75888- 1782 Oct, Bipolar disorder, unspecified F31.9 and Chronic post- traumatic stress disorder (PTSD) F43.12 [place] [id number] [place] [address] 44000- 7690 Sep, Bipolar disorder, unspecified F31.9 ; Panic disorder with agoraphobia F40.01 ; PTSD (post-traumatic stress disorder) F43.10 ; Cannabis use disorder, moderate, dependence F12.20 ; Cannabis dependence F12.20 and Anxiety, generalized F41.1 [place] [address] 697583- 747 Sep, Cannabis use disorder, moderate, dependence F12.20 ; Anxiety , generalized F41.1 and Adjustment disorder with mixed anxiety and depressed mood F43.23 [place] [address] 697585- 7289 15 Sep, 2016 Bipolar disorder, unspecified F31.9 ; Panic disorder with agoraphobia F40.01 ; PTSD (post-traumatic stress disorder) F43.10 ; Cannabis use disorder, moderate, dependence F12.20 ; Cannabis dependence F12.20 and Anxiety, generalized F41.1 [place] [address] 12243- 4565 Sep, Bipolar disorder, unspecified F31.9 ; Panic disorder with agoraphobia F40.01 ; PTSD (post-traumatic stress disorder) F43.10 ; Cannabis use disorder, moderate, dependence F12.20 ; Cannabis dependence F12.20 and Anxiety, generalized F41.1 [place] [address] [id number]- 1405 Sep, Bipolar disorder, unspecified F31.9 ; Post-traumatic stress disorder F43.10 and Cannabis dependence F12.20 [place] [address] [address]852[address]25[address] Sep, [place] [address]- 7862 Sep, Suicidal behavior without attempted self-injury R46.89 [place] [address] 697580- 9539 Sep, [place] [address] 697588- 4258 07 Sep, 2016 Cannabis use disorder, moderate, dependence F12.20 ; Panic disorder with agoraphobia F40.01 ; Bipolar disorder, unspecified F31.9 and Anxiety, generalized F41.1 [place] [id number] [place] [address] 60446- 8711 07 Sep, 2016 Bipolar disorder, unspecified F31.9 ; PTSD (post-traumatic stress disorder) F43.10 ; Panic disorder with agoraphobia F40.01 and Cannabis use disorder, moderate, dependence F12.20 [place] [address] 09054- 4853 Sep, [place] [id number] [place] [address] 89658- 1047 Sep, PTSD (post-traumatic stress disorder) F43.10 ; Cannabis use disorder, moderate, dependence F12.20 and Suicidal risk R45.[address] 53176- 4747 Sep, [place] [address] 20298- 1624 Jul, Bipolar disorder, unspecified F31.9 ; PTSD (post-traumatic stress disorder) F43.10 and Panic disorder with agoraphobia F40.01 [place] [id number] [place] [address] 73535- 5794 Jul, Obstructive sleep apnea syndrome G47.33 ; Moderate persistent asthma without complication J45.40 and Cigarette nicotine dependence with other nicotine-induced disorder F17.218 [place] [id number] [place] [address] 35401- 6479 Jul, [place] [address] 96504- 7482 Jul, [place] [address] [id number]- 3937 May, [place] [address] 97462- 2410 May, [place] [address] [place] [address]- 4195 May, [place] [id number] [place] [address] 87222- 7766 Apr, [place] [id number] [place] [address] 15367- 9118 Apr, Bipolar disorder, unspecified F31.9 ; PTSD (post-traumatic stress disorder) F43.10 ; Panic disorder with agoraphobia F40.01 and Cannabis use disorder, moderate, dependence F12.20 [place] [id number] [place] [address] 92594- 7243 Mar, Uncomplicated asthma, unspecified asthma severity J45.909 [place] [id number] [place] [address] 25546- 9442 Mar, [place] [address] 19756- 8059 Mar, Moderate persistent asthma without complication J45.40 ; Gastroesophageal reflux disease without esophagitis K21.9 and Cigarette nicotine dependence with other nicotine-induced disorder F17.218 [place] [id number] [place] [address] 81859- 4019 Feb, [place] [id number] [place] [address] 94154- 2075 Jan, Bipolar disorder, unspecified F31.9 ; PTSD (post-traumatic stress disorder) F43.10 ; Panic disorder with agoraphobia F40.01 and Cannabis use disorder, moderate, dependence F12.20 [place] [address] [place] [address] 38608- 3380 December, [place] [id number] [place] [address] 40069- 5778 Nov, [place] [id number] [place] [address] 21024- 8178 Nov, Bipolar disorder, unspecified F31.9 ; PTSD (post-traumatic stress disorder) F43.10 ; Panic disorder with agoraphobia F40.01 and Cannabis use disorder, moderate, dependence F12.20 [place] [address] [place] [address] 72685- 2128 Oct, [place] [id number] [place] [address] 32722- 1689 Oct, [place] [id number] [place] [address] 22934- 8210 Sep, [place] [id number] [place] [address] 82981- 2238 Sep, Bipolar disorder, unspecified F31.9 ; PTSD (post-traumatic stress disorder) F43.10 ; Panic disorder with agoraphobia F40.01 and Cannabis use disorder, moderate, dependence F12.20 [place] [id number] [place] [address] 10547- 4203 Aug, [address] [id number] [place] [address] 12594- 7626 Aug, [place] [id number] [place] [address] 41307- 9267 Aug, Bipolar disorder, unspecified F31.9 ; PTSD (post-traumatic stress disorder) F43.10 ; Panic disorder with agoraphobia F40.01 and Cannabis use disorder, moderate, dependence F12.20 [address] [place] [address] 70514- 9149 Jul, [address] [id number] [place] [address] 36588- 5630 24 Apr, 2015 GERD (gastroesophageal reflux disease) 530.81 and Internal hemorrhoids 455.0 [address] [id number] [place] [address] 72132- 6119 Feb, Rectal bleeding 569.3 and Hemorrhoids 455.6 [address] [id number] [place] [address] 05603- 7407 Jan, Sinusitis 473.9 and Otitis media 382.9 [facility] [place] [facility] [address] [id number] [place] [address]- 9348 December, [facility] [place] [facility] [address] [id number] [place] [address]- 4388 Nov, [facility] [place] [facility] [address] [id number] [place] 8416 Nov, [facility] [place] [facility] [address] [id number] [place] 9391 Oct, [facility] [place] [facility] [address] [id number] [place] [address]- 0916 Oct, [facility] [place] [facility] [address] [id number] [place] [address]- 3167 Sep, [facility] [place] [facility] [address] [facility] [id number] [place] [address]- 0584 Sep, [facility] [place] [facility] [address] [facility] [id number] [address]- 1624 Aug, [facility] [place] [facility] [address] [facility] [id number] [address]- 7482 Aug, [facility] [place] [facility] [address] [facility] [id number] [address]- 6754 Jul, [facility] [place] [facility] [address] [facility] [id number] [place] [address]- 7298 Jul, [facility] [place] [facility] [address] [facility] [id number] [address]- 5342 Jul, [facility] [place] [facility] [address] [facility] [id number] [address]- 3510 Jul, [facility] [place] [facility] [address] [facility] [id number] 1429 Jul, [facility] [place] [facility] [address] [facility] [id number] [place] 0561 Jul, [facility] [place] [facility] [address] [id number] [place] [address]- 2461 Jul, [facility] [place] [facility] [address] [id number] [place] [address]- 6905 Jul, [facility] [place] [facility] [address] [id number] [place] [address]- 0928 Jun, [facility] [place] [facility] [address] [facility] [id number] [place] [address]- 7609 Jun, [facility] [place] [facility] [address] [id number] [place] [address]- 2592 Jun, [facility] [place] [facility] [address] [id number] [place] [address]- 8966 Jun, [facility] [place] [facility] [address] [id number] [place] [address]- 8852 May, [facility] [place] [facility] [address] [facility] [id number] [place] [address]- 4667 May, [facility] [place] [facility] [address] [id number] [place] [address]- 0397 May, [facility] [place] [facility] [address] [facility] [id number] [place] [address]- 8879 May, [facility] [place] [facility] [address] [facility] [id number] [place] [address]- 3083 Apr, [facility] [place] [facility] [address] [id number] [place] [address]- 1493 Apr, [facility] [place] [facility] [address] [id number] [address]- 9732 Apr, [facility] [place] [facility] [address] [id number] [place] [address]- 1521 Apr, [facility] [place] [facility] [address] [facility] [id number] [address]- 2279 Mar, [facility] [place] [facility] [address] [facility] [id number] [place] [address]- 8743 Mar, [facility] [place] [facility] [address] [id number] [place] [address]- 0269 Mar, [facility] [place] [facility] [address] [id number] [place] 0878 Mar, [facility] [place] [facility] [address] [id number] [place] [address]- 2616 December, [facility] [place] [facility] [address] [id number] [place] [address]- 1374 December, [facility] [place] [facility] [address] [id number] [place] [address]- 3117 Nov, [facility] [place] [facility] [address] [id number] [place] [address]- 2727 Nov, [facility] [place] [facility] [address] [id number] [place] [address]- 0963 Sep, [facility] [place] [facility] [address] [id number] [place] [address]- 1188 Sep, [facility] [place] [facility] [address] [id number] [place] [address]- 6315 Sep, [facility] [place] [facility] [address] [id number] [place] [address]- 1728 Sep, [facility] [place] [facility] [address] [id number] [place] [address]- 9223 Aug, [facility] [place] [facility] [address] [id number] [place] [address]- 9908 Jul, [facility] [place] [facility] [address] [id number] [place] [address]- 5167 Jul, [facility] [place] [facility] [address] [id number] [place] [address]- 6345 Jun, [facility] [place] [facility] [address] [id number] [place] [address]- 5886 Jun, [facility] [place] [facility] [address] [id number] [place] [address]- 3005 18 May, 2013 [facility] [place] [facility] [address] [id number] [place] [address]- 8150 18 May, 2013 [facility] [place] [facility] [address] [id number] [place] [address]- 5966 07 May, 2013 [facility] [place] [facility] [address] [id number] [place] [address]- 8435 17 Apr, 2013 [facility] [place] [facility] [address] [id number] [place] [address]- 1750 16 Apr, 2013 [facility] [place] [facility] [address] [id number] [place] [address]- 5725 Apr, [facility] [place] [facility] [address] [id number] [place] [address]- 0164 Apr, [facility] [place] [facility] [address] [id number] [place] [address]- 0149 Mar, [facility] [place] [facility] [address] [id number] [place] [address]- 8722 Mar, [facility] [place] [facility] [address] [id number] [place] [address]- 9715 December, [facility] [place] [facility] [address] [id number] [place] [address]- 4251 Oct, [facility] [place] [facility] [address] [id number] [place] [address]- 6806 Oct, [facility] [place] [facility] [address] [id number] [place] [address]- 7038 Aug, [facility] [place] [facility] [address] [id number] [place] [address]- 7149 Jul, [facility] [place] [facility] [address] [id number] [place] [address]- 7536 Jul, [facility] [place] [facility] [address] [id number] [place] [address]- 0000 Jul, [facility] [place] [facility] [address] [id number] [place] [address] 2546 13 Jul, 2012 [facility] [address] [id number] [place] [address]- 5339 14 Jun, 2012 [facility] [address] [id number] [place] [address]- 2546 14 Jun, 2012 [facility] [address] [id number] [place] [address]- 8216 14 Mar, 2012 [facility] [address] [id number] [place] [address]- 2546 16 Feb, 2012 [facility] [address] [id number] [place] [address]- 9346 16 Feb, 2012 [facility] [address] [id number] [place] [address]- 3226 December, [facility] [address] [id number] [place] [address]- 3866 17 Nov, 2011 [facility] [address] [id number] [place] [address]- 1529 Oct, [facility] [address] [id number] [place] [address]- 8946 Oct, [facility] [address] [id number] [place] [address]- 5486 Sep, [facility] [address] [id number] [place] [address]- 2546 Sep, [facility] [address] [id number] [place] [address]- 2276 Aug, [facility] [address] [id number] [place] [address]- 2546 Aug, [facility] [address] [id number] [place] [address] Jul, [facility] [address] [id number] [place] [address] Jul, [facility] [address] [facility] [id number] [place] [address] Jul, [facility] [address] [id number] [place] [address] Jun, [facility] [address] [facility] [id number] [place] [address] May, [facility] [address] [facility] [id number] [place] [address] Apr, [facility] [address] [facility] [id number] [place] [address] Feb, [facility] [address] [facility] [id number] [place] [address] Sep, [facility] [address] [facility] [id number] [place] [address] Jul, [facility] [address] [facility] [id number] [place] [address] Jul, [facility] [address] [facility] [id number] [place] [address] Jul, [facility] [address] [facility] [id number] [place] [address] Jul, [facility] [address] [facility] [id number] [place] [address] Jun, [facility] [address] [facility] [id number] [place] [address] Feb, [facility] [address] [facility] [id number] [place] [address] Jan, [facility] [address] [facility] [id number] [place] [address] Feb, [facility] [address] [facility] [id number] [place] [address] Jul, IMMUNIZATIONS No Known Immunizations SOCIAL HISTORY Never Assessed REASON FOR VISIT Refill request PLAN OF CARE VITAL SIGNS MEDICATIONS Medication Instructions Dosage Frequency Start Date End Date Duration Status Loxapine Succinate 10 mg TAKE 4 CAPSULES BY MOUTH AT BEDTIME 30 Active RESULTS No Results PROCEDURES No Known [...]
--- OUTSIDE RECORDS SUMMARY | 2018-05-13 11:38 | XMS REPORT ---
Author Author CHLOE AMAYA Organization [facility] Address [address] [place] [address] Care Team Providers Care Director Safety Council Name Role Phone CHLOE AMAYA Unavailable PROBLEMS Type Condition ICD9-CM Code EFS52-YG Code Onset Dates Condition Status SNOMED Code Problem Obstructive sleep apnea syndrome G47.33 Active 38579476 Problem Cannabis dependence F12.20 Active 38947508 Problem Anxiety, generalized F41.1 Active 24736839 Problem Other chronic pain G89.29 Active 01557130 Problem Adjustment disorder with depressed mood F43.21 Active 28065616 Problem Chronic post-traumatic stress disorder (PTSD) F43.12 Active 583005957 Problem Post-traumatic stress disorder F43.10 Active 21248321 Problem Adjustment disorder with anxious mood F43.22 Active 63532793 Problem Adjustment disorder with mixed anxiety and depressed mood F43.23 Active 05934222 Problem Bipolar disorder, unspecified F31.9 Active 66735599 Problem Gastroesophageal reflux disease without esophagitis K21.9 Active 660871349 Problem Cannabis use disorder, moderate, dependence F12.20 Active 38575333 Problem Cigarette nicotine dependence with other nicotine-induced disorder F17.218 Active 67650993 Problem Panic disorder with agoraphobia F40.01 Active 75009869 Problem Moderate persistent asthma without complication J45.40 Active 828703290 ALLERGIES Substance Reaction Event Type Date Status Penicillin V Potassium Unknown Drug Allergy May, Active Advair Diskus Unknown Drug Allergy May, Active ENCOUNTERS Encounter Location Date Diagnosis [facility] [address] [facility] [id number] [address] Mar, [facility] [address] [id number] [address] Jan, Low back pain M54.5 ; Moderate persistent asthma without complication J45.40 and Other chronic pain G89.29 [facility] [id number] [place] [address] 57392- 0453 Jan, Moderate persistent asthma without complication J45.40 ; Low back pain M54.5 ; Other chronic pain G89.29 ; Gastroesophageal reflux disease without esophagitis K21.9 and Cigarette nicotine dependence with other nicotine-induced disorder F17.218 [place] [id number] [place] [address] 95589- 3294 December, Bipolar disorder, unspecified F31.9 ; Panic disorder with agoraphobia F40.01 ; Cannabis use disorder, moderate, dependence F12.20 and Chronic post-traumatic stress disorder (PTSD) F43.12 [place] [address] 471325- 6256 December, [place] [id number] [place] [address] 18534- 2598 December, [place] [id number] [place] [address] 28267- 3394 Nov, [place] [id number] [place] [address] 30161- 5916 Oct, Bipolar disorder, unspecified F31.9 ; Chronic post- traumatic stress disorder (PTSD) F43.12 ; Panic disorder with agoraphobia F40.01 and Cannabis use disorder, moderate, dependence F12.20 [place] [id number] [place] [address] 07057- 4726 Sep, [place] [id number] [place] [address] 27643- 9938 Sep, [place] [id number] [place] [address] 52463- 3795 Aug, [place] [id number] [place] [address] 03052- 307 Aug, Cannabis use disorder, moderate, dependence F12.20 ; Panic disorder with agoraphobia F40.01 and Bipolar affective disorder, currently depressed, moderate F31.32 [place] [address] 0[address]69- 3111 May, Diarrhea of presumed infectious origin A09 and Nausea and vomiting, intractability of vomiting not specified, unspecified vomiting type R11.2 [place] [address] 6[address]27- 2882 Apr, [place] [address] 61853- 4238 Mar, Nausea R11.0 and Gastroenteritis K52.9 [place] [address] 67934- 3554 Mar, Gastroesophageal reflux disease without esophagitis K21.9 [place] [address] 880591- 7815 Mar, Gastroesophageal reflux disease without esophagitis K21.9 [place] [address] 40686- 1397 Mar, [place] [address] 64297- 6493 Mar, [place] [address] 20087- 7811 Mar, [place] [address] 86694- 4689 Feb, Acute pain of right shoulder M25.511 and Muscle spasm M62.838 [place] [address] 14423- 8389 Feb, Acute labyrinthitis, unspecified laterality H83.09 [place] [address] 61433- 3960 December, [place] [address] 89492- 6929 December, [place] [address] 13526- 9293 December, Cannabis use disorder, moderate, dependence F12.20 ; Anxiety , generalized F41.1 ; Adjustment disorder with mixed anxiety and depressed mood F43.23 and Chronic post-traumatic stress disorder (PTSD) F43.12 [place] [id number] [place] [address] 2769 December, [place] [id number] [place] [address] 17217- 9178 December, [place] [address] 51259- 1295 Nov, Acute nasopharyngitis J00 [place] [id number] [place] [address] 42675- 7140 Nov, Cannabis use disorder, moderate, dependence F12.20 ; Anxiety , generalized F41.1 ; Adjustment disorder with mixed anxiety and depressed mood F43.23 and Chronic post-traumatic stress disorder (PTSD) F43.12 [place] [id number] [place] [address] 01923- 7808 Nov, Cannabis use disorder, moderate, dependence F12.20 ; Anxiety , generalized F41.1 ; Adjustment disorder with mixed anxiety and depressed mood F43.23 and Chronic post-traumatic stress disorder (PTSD) F43.12 [place] [id number] [place] [address] 93400- 0213 Oct, Diarrhea, unspecified R19.7 ; Vomiting, unspecified R11.10 and Viral gastroenteritis A08.4 [place] [address] [place] [address] 57788- 5059 Oct, Bipolar disorder, unspecified F31.9 ; Panic disorder with agoraphobia F40.01 ; Cannabis use disorder, moderate, dependence F12.20 ; Cigarette nicotine dependence with other nicotine-induced disorder F17.218 ; Anxiety, generalized F41.1 ; Post-traumatic stress disorder F43.10 and Adjustment disorder with mixed anxiety and depressed mood F43.23 [place] [id number] [place] [address] 84494- 7040 Oct, Bipolar disorder, unspecified F31.9 ; Chronic post- traumatic stress disorder (PTSD) F43.12 ; Panic disorder with agoraphobia F40.01 and Cannabis use disorder, moderate, dependence F12.20 [place] [address] [place] [address] 59242- 4902 Oct, Bipolar disorder, unspecified F31.9 ; Panic disorder with agoraphobia F40.01 ; Cannabis use disorder, moderate, dependence F12.20 ; Cigarette nicotine dependence with other nicotine-induced disorder F17.218 ; Anxiety, generalized F41.1 ; Post-traumatic stress disorder F43.10 and Adjustment disorder with mixed anxiety and depressed mood F43.23 [place] [id number] [place] [address] 57943- 4904 14 Oct, 2016 Viral gastroenteritis A08.4 [place] [id number] [place] [address] 37601- 2551 09 Oct, 2016 Anxiety, generalized F41.1 ; Post-traumatic stress disorder F43.10 ; Adjustment disorder with depressed mood F43.21 and Adjustment disorder with anxious mood F43.22 [place] [id number] [place] [address] 74660- 7852 07 Oct, 2016 Panic disorder with agoraphobia F40.01 ; Cannabis use disorder, moderate, dependence F12.20 ; Bipolar disorder, unspecified F31.9 ; Cigarette nicotine dependence with other nicotine-induced disorder F17.218 ; Adjustment disorder with anxious mood F43.22 ; Anxiety, generalized F41.1 ; Post -traumatic stress disorder F43.10 and Cannabis dependence F12.20 [place] [address] [place] [address] 22432- 7319 Oct, Bipolar disorder, unspecified F31.9 and Chronic post- traumatic stress disorder (PTSD) F43.12 [place] [id number] [place] [address] 30359- 2220 Oct, Bipolar disorder, unspecified F31.9 and Chronic post- traumatic stress disorder (PTSD) F43.12 [place] [id number] [place] [address] 14253- 5148 28 Sep, 2016 Bipolar disorder, unspecified F31.9 ; Panic disorder with agoraphobia F40.01 ; PTSD (post-traumatic stress disorder) F43.10 ; Cannabis use disorder, moderate, dependence F12.20 ; Cannabis dependence F12.20 and Anxiety, generalized F41.1 [place] [id number] [place] [address] 77847- 9533 Sep, Cannabis use disorder, moderate, dependence F12.20 ; Anxiety , generalized F41.1 and Adjustment disorder with mixed anxiety and depressed mood F43.23 [place] [id number] [place] [address] 26008- 6258 15 Sep, 2016 Bipolar disorder, unspecified F31.9 ; Panic disorder with agoraphobia F40.01 ; PTSD (post-traumatic stress disorder) F43.10 ; Cannabis use disorder, moderate, dependence F12.20 ; Cannabis dependence F12.20 and Anxiety, generalized F41.1 [place] [id number] [place] [address] 98494- 7428 Sep, Bipolar disorder, unspecified F31.9 ; Panic disorder with agoraphobia F40.01 ; PTSD (post-traumatic stress disorder) F43.10 ; Cannabis use disorder, moderate, dependence F12.20 ; Cannabis dependence F12.20 and Anxiety, generalized F41.1 [place] [id number] [place] [address] 62264- 6940 Sep, Bipolar disorder, unspecified F31.9 ; Post-traumatic stress disorder F43.10 and Cannabis dependence F12.20 [place] [address] [place] [address] Sep, [place] [id number] [place] [address] 64968- 6618 08 Sep, 2016 Suicidal behavior without attempted self-injury R46.89 [place] [id number] [place] [address] 93379- 6435 Sep, [place] [id number] [place] [address] 26547- 6663 Sep, Cannabis use disorder, moderate, dependence F12.20 ; Panic disorder with agoraphobia F40.01 ; Bipolar disorder, unspecified F31.9 and Anxiety, generalized F41.1 [place] [id number] [place] [address] 02199- 3843 Sep, Bipolar disorder, unspecified F31.9 ; PTSD (post-traumatic stress disorder) F43.10 ; Panic disorder with agoraphobia F40.01 and Cannabis use disorder, moderate, dependence F12.20 [place] [id number] [place] [address] 90574- 7392 Sep, [address] 72731- 0796 Sep, PTSD (post-traumatic stress disorder) F43.10 ; Cannabis use disorder, moderate, dependence F12.20 and Suicidal risk R45.[address] 18569- 1460 Sep, [place] [id number] [place] [address] 21790- 4508 Jul, Bipolar disorder, unspecified F31.9 ; PTSD (post-traumatic stress disorder) F43.10 and Panic disorder with agoraphobia F40.01 [place] [id number] [place] [address] 61540- 4364 Jul, Obstructive sleep apnea syndrome G47.33 ; Moderate persistent asthma without complication J45.40 and Cigarette nicotine dependence with other nicotine-induced disorder F17.218 [place] [id number] [place] [address] 95219- 1986 Jul, [address] 80512- 3965 Jul, [place] [id number] [place] [address] 35721- 9536 May, [place] [address]- 2546 May, [place] [address] [place] [address] 34885- 2738 May, [place] [id number] [place] [address] 39280- 1900 Apr, [place] [id number] [place] [address] 05133- 3272 Apr, Bipolar disorder, unspecified F31.9 ; PTSD (post-traumatic stress disorder) F43.10 ; Panic disorder with agoraphobia F40.01 and Cannabis use disorder, moderate, dependence F12.20 [place] [id number] [place] [address] 29794- 9128 Mar, Uncomplicated asthma, unspecified asthma severity J45.909 [place] [id number] [place] [address] 97269- 9691 Mar, [place] [id number] [place] [address] 00083- 5850 Mar, Moderate persistent asthma without complication J45.40 ; Gastroesophageal reflux disease without esophagitis K21.9 and Cigarette nicotine dependence with other nicotine-induced disorder F17.218 [place] [id number] [place] [address] 29333- 9924 Feb, [place] [id number] [place] [address] 83742- 3257 Jan, Bipolar disorder, unspecified F31.9 ; PTSD (post-traumatic stress disorder) F43.10 ; Panic disorder with agoraphobia F40.01 and Cannabis use disorder, moderate, dependence F12.20 [place] [id number] [place] [address] 23809- 3773 December, [place] [id number] [place] [address] 19177- 6267 Nov, [place] [id number] [place] [address] 74339- 5162 Nov, Bipolar disorder, unspecified F31.9 ; PTSD (post-traumatic stress disorder) F43.10 ; Panic disorder with agoraphobia F40.01 and Cannabis use disorder, moderate, dependence F12.20 [place] [address] [place] [address]- 0312 Oct, [place] [id number] [place] [address] 35061- 3190 Oct, [place] [id number] [place] [address] 69951- 3097 Sep, [place] [id number] [place] [address] 97980- 5314 Sep, Bipolar disorder, unspecified F31.9 ; PTSD (post-traumatic stress disorder) F43.10 ; Panic disorder with agoraphobia F40.01 and Cannabis use disorder, moderate, dependence F12.20 [place] [id number] [place] [address] 65797- 4438 Aug, [place] [id number] [place] [address] 47099- 0864 Aug, [place] [id number] [place] [address] 95351- 3710 Aug, Bipolar disorder, unspecified F31.9 ; PTSD (post-traumatic stress disorder) F43.10 ; Panic disorder with agoraphobia F40.01 and Cannabis use disorder, moderate, dependence F12.20 [place] [id number] [place] [address] 22657- 1705 Jul, [place] [id number] [place] [address] 95669- 3746 Apr, GERD (gastroesophageal reflux disease) 530.81 and Internal hemorrhoids 455.0 [place] [id number] [place] [address] 62035- 3366 Feb, Rectal bleeding 569.3 and Hemorrhoids 455.6 [place] [address] [place] [address]- 4996 Jan, Sinusitis 473.9 and Otitis media 382.9 [facility] [id number] [place] [address]- 3643 December, [facility] [place] [facility] [address] [facility] [id number] [place] [address]- 0823 Nov, [facility] [place] [facility] [address] [facility] [id number] [place] [address], [place] [address]- 7162 Nov, [facility] [place] [facility] [address] [facility] [id number] [place] [address], [place] [address]- 6504 Oct, [facility] [place] [facility] [id number] [place] [address], [place] [address]- 0150 Oct, [facility] [id number] [place] [address], [place] [address]- 7231 Sep, [facility] [id number] [place] [address], [place] [address]- 1801 Sep, [facility] [id number] [place] [address]- 9028 Aug, [facility] [address] [place] [address]- 0913 Aug, [facility] [place] [facility] [address] [place] [address]- 6071 Jul, [facility] [place] [facility] [address] [id number] [address]- 8264 Jul, [facility] [place] [facility] [id number] [place] [address]- 4090 Jul, [facility] [place] [facility] [address] [place] [address]- 7715 Jul, [facility] [place] [facility] [address] [id number] [address]- 1872 Jul, [facility] [place] [facility] [address], [place] [address]- 0611 Jul, [facility] [place] [facility] [address] [id number] [place]- 6267 Jul, [facility] [place] [facility] [address] [id number] [place] [address]- 3402 Jul, [facility] [place] [facility] [address] [facility] [id number] [place] 5419 Jun, [facility] [place] [facility] [address] [id number] [place] [address]- 1899 Jun, [facility] [place] [facility] [address] [id number] [place] [address]- 1471 Jun, [facility] [place] [facility] [address] [id number] [place] [address]- 5953 Jun, [facility] [place] [facility] [address] [id number] [place] [address]- 4766 May, [facility] [place] [facility] [address] [id number], [place] [address]- 8469 May, [facility] [place] [facility] [address] [id number], [place] [address]- 5676 May, [facility] [place] [facility] [address] [id number], [place] [address]- 4834 May, [facility] [place] [facility] [address] [id number], [place] [address]- 8549 Apr, [facility] [place] [facility] [address] [id number], [place] [address]- 6804 Apr, [facility] [place] [facility] [address] [id number], [place] [address]- 2580 Apr, [facility] [place] [facility] [address] [id number], [place] [address]- 2265 Apr, [facility] [place] [facility] [address] [id number], [place] [address]- 7335 Mar, [facility] [place] [facility] [address] [id number] [place] [address]- 4317 Mar, [facility] [address] [id number] [place] [address]- 1036 Mar, [facility] [place] [facility] [address] [id number] [place] [address]- 7116 Mar, [facility] [place] [facility] [address] [id number] [place] [address]- 7816 December, [facility] [place] [facility] [address] [id number] [place] [address]- 8672 December, [facility] [place] [facility] [address] [id number] [place] [address]- 5765 Nov, [facility] [place] [facility] [address] [id number] [place] [address]- 1226 Nov, [facility] [place] [facility] [address] [id number] [place] [address]- 7455 Sep, [facility] [place] [facility] [address] [id number] [place] [address]- 6998 Sep, [facility] [place] [facility] [address] [id number] [place] [address]- 5337 Sep, [facility] [place] [facility] [address] [facility] [id number] [place] [address]- 1548 Sep, [facility] [place] [facility] [address] [id number] [place] [address]- 1753 Aug, [facility] [place] [facility] [address] [id number] [place] [address]- 4840 Jul, [facility] [place] [facility] [address] [id number] [place] [address]- 0166 Jul, [facility] [place] [facility] [address] [id number] [place] [address]- 7746 Jun, [facility] [place] [facility] [address] [id number] [place] [address]- 0815 Jun, [facility] [place] [facility] [address] [id number] [place] [address]- 5796 May, [facility] [place] [facility] [address] [id number] [place] [address]- 2630 18 May, 2013 [facility] [place] [facility] [address] [id number] [place] [address]- 3749 May, [facility] [place] [facility] [address] [id number] [place] [address]- 7055 17 Apr, 2013 [facility] [place] [facility] [address] [id number] [place] [address]- 7095 16 Apr, 2013 [facility] [place] [facility] [address] [id number] [place] [address]- 0912 Apr, [facility] [place] [facility] [address] [id number] [place] [address]- 5116 Apr, [facility] [place] [facility] [address] [id number] [place] [address]- 8821 Mar, [facility] [place] [facility] [address] [id number] [place] [address]- 5453 Mar, [facility] [place] [facility] [address] [id number] [place] [address]- 0504 December, [facility] [place] [facility] [address] [id number], [place] [address]- 7257 Oct, [facility] [place] [facility] [address] [id number], [place] [address]- 6855 Oct, [facility] [place] [facility] [address] [id number] [place] [address]- 5036 Aug, [facility] [place] [facility] [address] [id number], [place] [address]- 6996 Jul, [facility] [place] [facility] [address] [id number] [place] [address]- 2241 Jul, [facility] [place] [facility] [address] [id number] [place] [address]- 7644 13 Jul, 2012 [facility] [address] [id number] [place] [address]- 8908 13 Jul, 2012 [facility] [place] [facility] [address] [id number] [place] [address]- 7456 14 Jun, 2012 [facility] [address] [id number] [place] [address]- 3635 14 Jun, 2012 [facility] [place] [facility] [address] [id number] [place] [address]- 6700 14 Mar, 2012 [facility] [address] [id number] [place] [address]- 4748 16 Feb, 2012 [facility] [place] [facility] [address] [id number] [place] [address]- 3149 16 Feb, 2012 [facility] [address] [id number] [place] [address] 15 Dec, 2011 [facility] [place] [facility] [address] [id number] [place] [address] 17 Nov, 2011 [facility] [place] [facility] [address] [id number] [place] [address] 23 Oct, 2011 [facility] [place] [facility] [address] [id number] [place] [address] Oct, [facility] [place] [facility] [address] [id number] [place] [address] 09 Sep, 2011 [facility] [place] [facility] [address] [id number] [place] [address] 03 Sep, 2011 [facility] [place] [facility] [address] [id number] [place] [address] 19 Aug, 2011 [facility] [place] [facility] [address] [id number] [place] [address] 13 Aug, 2011 [facility] [place] [facility] [address] [id number] [place] [address] Jul, [facility] [place] [facility] [address] [id number] [place] [address] Jul, [facility] [address] [id number] [place] [address] Jul, [facility] [address] [id number] [place] [address] Jun, [facility] [address] [id number] [place] [address] May, [facility] [address] [id number] [place] [address] Apr, [facility] [address] [id number] [place] [address] Feb, [facility] [address] [id number] [place] [address] Sep, [facility] [address] [id number] [place] [address] Jul, [facility] [address] [id number] [place] [address] Jul, [facility] [address] [id number] [place] [address] Jul, [facility] [address] [id number] [place] [address] Jul, [facility] [address] [id number] [place] [address] Jun, [facility] [place] [facility] [address] [id number] [place] [address] Feb, [facility] [place] [facility] [address] [id number] [place] [address] Jan, [facility] [place] [facility] [address] [id number] [place] [address] Feb, [facility] [address] [id number] [place] [id number], IMMUNIZATIONS No Known Immunizations SOCIAL HISTORY Never Assessed REASON FOR VISIT Cold symptoms, cough, congestion started Thursday---DBennettRN, vomiting/diarrhea since Thursday (3x today), loss of appetite, temp max 101 yesterday PLAN OF CARE Activity Details Follow Up prn Reason: VITAL SIGNS Height 76 in 2017-06-02 Weight 210 lbs 2017-06-02 Temperature 98.8 degrees Fahrenheit 2017-06-02 Heart Rate 80 bpm 2017-06-02 Respiratory Rate 20 2017-06-02 BMI 25.56 kg/m2 2017-06-02 Blood pressure systolic 102 mmHg 2017-06-02 Blood pressure diastolic 60 mmHg 2017-06-02 MEDICATIONS Medication Instructions Dosage Frequency Start Date End Date Duration Status Ibuprofen 800 MG TAKE 1 TABLET (800 MG) BY ORAL ROUTE 3 TIMES PER DAY WITH FOOD Active Neurontin 300 MG Orally Once a day as needed for anxiety 1 capsule 30 Not-Taking Meclizine HCl 25 MG Orally TID PRN, dizziness 1 18 Feb, 2017 0 days Active Omeprazole 20 MG Orally Once a day 1 CAPSULE 24h 30 days Active Loxapine Succinate 10 mg TAKE 4 CAPSULES BY MOUTH AT BEDTIME 30 Active ProAir HFA 108 (90 Base) MCG/ACT 2 PUFFS NEEDED 4 TIMES A DAY, PRN WHEEZING INHALATION Active Zofran 4 MG Orally Once a day 1 tablet 24h May, 14 days Active Flagyl 500 mg Orally 2 times a day 1 tablet 12h May, Jun, 10 day(s) Active Ondansetron 4 MG Orally every 8 hrs as needed for nauesa 1 tablet on the tongue and allow to dissolve Mar, Active Singulair 10 MG 1 TABLET BY ORAL ROUTE 1 TIME PER DAY Active Metoprolol Tartrate 25 MG Orally Twice a day for panic 1 tablet Jul, Active Symbicort 160-4.5 MCG/ACT Inhalation Twice a day 2 puffs 12h Mar, Active Qvar 40 MCG/ACT INHALE 2 PUFF BY INHALATION ROUTE 2 TIMES PER DAY Active Prozac 40 mg Orally Once a day for depression 1 capsule in the morning Active Advair Diskus 250-50 MCG/DOSE Inhalation Twice a day 1 puff 12h Active RESULTS No Results PROCEDURES No Known [...]
[2018-05-13 11:43] LABS: BASOPHILS # (AUTO) 0.1 10^3/uL (0.0-0.1); BASOPHILS % (AUTO) 1 % (0-10); EOSINOPHILS # (AUTO) 0.4 10^3/uL (0.0-0.3); EOSINOPHILS % (AUTO) 2 % (0-10); HEMATOCRIT 44 % (40-54); HEMOGLOBIN 15.7 G/DL (13.3-17.7); LYMPHOCYTES # (AUTO) 1.9 X 10^3 (1.0-4.0); LYMPHOCYTES % (AUTO) 12 % (12-44); MEAN CORPUSCULAR HEMOGLOBIN 31 PG (25-34); MEAN CORPUSCULAR HGB CONC 36 G/DL (32-36); MEAN CORPUSCULAR VOLUME 87 FL (80-99); MEAN PLATELET VOLUME 9.5 FL (7.4-10.4); MONOCYTES # (AUTO) 1.2 X 10^3 (0.0-1.0); MONOCYTES % (AUTO) 8 % (0-12); NEUTROPHILS # (AUTO) 12.6 X 10^3 (1.8-7.8); NEUTROPHILS % (AUTO) 78 % (42-75); PLATELET COUNT 303 10^3/uL (130-400); RED BLOOD COUNT 5.05 10^6/uL (4.35-5.85); RED CELL DISTRIBUTION WIDTH 13.6 % (10.0-14.5); WHITE BLOOD COUNT 16.2 10^3/uL (4.3-11.0)
--- OUTSIDE RECORDS SUMMARY | 2018-05-13 11:43 | XMS REPORT ---
Author Author JAGRUTI KORY Organization [facility] Address [address] [place] [address] Care Team Providers Care Metal Buffer Name Role Phone KORY CHAND Unavailable PROBLEMS Type Condition ICD9-CM Code XUU53-CG Code Onset Dates Condition Status SNOMED Code Problem Obstructive sleep apnea syndrome G47.33 Active 19927750 Problem Cannabis dependence F12.20 Active 44564956 Problem Anxiety, generalized F41.1 Active 91483667 Problem Other chronic pain G89.29 Active 75746203 Problem Adjustment disorder with depressed mood F43.21 Active 33230151 Problem Chronic post-traumatic stress disorder (PTSD) F43.12 Active 683953038 Problem Post-traumatic stress disorder F43.10 Active 27582946 Problem Adjustment disorder with anxious mood F43.22 Active 65459985 Problem Adjustment disorder with mixed anxiety and depressed mood F43.23 Active 07980278 Problem Bipolar disorder, unspecified F31.9 Active 28209362 Problem Gastroesophageal reflux disease without esophagitis K21.9 Active 069076315 Problem Cannabis use disorder, moderate, dependence F12.20 Active 16852790 Problem Cigarette nicotine dependence with other nicotine-induced disorder F17.218 Active 56682070 Problem Panic disorder with agoraphobia F40.01 Active 28890314 Problem Moderate persistent asthma without complication J45.40 Active 560753658 ALLERGIES No Information ENCOUNTERS Encounter Location Date Diagnosis [facility] [id number] [address] Mar, [facility] [id number] [place] [address] 10660- 6965 Jan, Low back pain M54.5 ; Moderate persistent asthma without complication J45.40 and Other chronic pain G89.29 [facility] [id number] [address] Jan, Moderate persistent asthma without complication J45.40 ; Low back pain M54.5 ; Other chronic pain G89.29 ; Gastroesophageal reflux disease without esophagitis K21.9 and Cigarette nicotine dependence with other nicotine-induced disorder F17.218 [place] [id number] [place] [id number] December, Bipolar disorder, unspecified F31.9 ; Panic disorder with agoraphobia F40.01 ; Cannabis use disorder, moderate, dependence F12.20 and Chronic post-traumatic stress disorder (PTSD) F43.12 [place] [address] [address]120- 5326 December, [place] [address] 432003- 6212 December, [place] [address] 65733- 6944 Nov, [address] [address]- 7084 Oct, Bipolar disorder, unspecified F31.9 ; Chronic post- traumatic stress disorder (PTSD) F43.12 ; Panic disorder with agoraphobia F40.01 and Cannabis use disorder, moderate, dependence F12.20 [place] [id number] [place] [address] 58059- 3473 Sep, [place] [id number] [place] [address] 20094- 7973 Sep, [place] [id number] [place] [address] 01252- 1500 Aug, [place] [id number] [place] [address] 09337- 6170 Aug, Cannabis use disorder, moderate, dependence F12.20 ; Panic disorder with agoraphobia F40.01 and Bipolar affective disorder, currently depressed, moderate F31.32 [place] [address] [id number] [place] [address] 33360- 8259 May, Diarrhea of presumed infectious origin A09 and Nausea and vomiting, intractability of vomiting not specified, unspecified vomiting type R11.2 [place] [id number] [place] [address] 76333- 9220 Apr, [place] [id number] [place] [address] 79860- 5791 Mar, Nausea R11.0 and Gastroenteritis K52.9 [place] [address] 14385- 9010 Mar, Gastroesophageal reflux disease without esophagitis K21.9 [place] [address] 855723- 3002 Mar, Gastroesophageal reflux disease without esophagitis K21.9 [place] [address] 15987- 8155 Mar, [place] [address] 68285- 8341 Mar, [place] [id number] [place] [address] 13244- 4046 Mar, [place] [address] 35869- 1435 Feb, Acute pain of right shoulder M25.511 and Muscle spasm M62.838 [place] [id number] [place] [address] 57047- 5509 Feb, Acute labyrinthitis, unspecified laterality H83.09 [place] [id number] [place] [address] 11442- 7277 December, [place] [address] 95847- 4720 December, [place] [id number] [place] [address] 13235- 7815 December, Cannabis use disorder, moderate, dependence F12.20 ; Anxiety , generalized F41.1 ; Adjustment disorder with mixed anxiety and depressed mood F43.23 and Chronic post-traumatic stress disorder (PTSD) F43.12 [place] [address] [address] 5[address] December, [place] [id number] [place] [address] 646717- 1978 December, [place] [id number] [place] [address] 56956- 5393 Nov, Acute nasopharyngitis J00 [place] [id number] [place] [address] 07622- 8213 Nov, Cannabis use disorder, moderate, dependence F12.20 ; Anxiety , generalized F41.1 ; Adjustment disorder with mixed anxiety and depressed mood F43.23 and Chronic post-traumatic stress disorder (PTSD) F43.12 [place] [address] [address] Nov, Cannabis use disorder, moderate, dependence F12.20 ; Anxiety , generalized F41.1 ; Adjustment disorder with mixed anxiety and depressed mood F43.23 and Chronic post-traumatic stress disorder (PTSD) F43.12 [place] [address] [place] [address] 18287- 1448 Oct, Diarrhea, unspecified R19.7 ; Vomiting, unspecified R11.10 and Viral gastroenteritis A08.4 [place] [address] [address] 8[address] Oct, Bipolar disorder, unspecified F31.9 ; Panic disorder with agoraphobia F40.01 ; Cannabis use disorder, moderate, dependence F12.20 ; Cigarette nicotine dependence with other nicotine-induced disorder F17.218 ; Anxiety, generalized F41.1 ; Post-traumatic stress disorder F43.10 and Adjustment disorder with mixed anxiety and depressed mood F43.23 [place] [address] [address] 99[address] Oct, Bipolar disorder, unspecified F31.9 ; Chronic post- traumatic stress disorder (PTSD) F43.12 ; Panic disorder with agoraphobia F40.01 and Cannabis use disorder, moderate, dependence F12.20 [place] [address] [place] [address] 63306- 4015 Oct, Bipolar disorder, unspecified F31.9 ; Panic disorder with agoraphobia F40.01 ; Cannabis use disorder, moderate, dependence F12.20 ; Cigarette nicotine dependence with other nicotine-induced disorder F17.218 ; Anxiety, generalized F41.1 ; Post-traumatic stress disorder F43.10 and Adjustment disorder with mixed anxiety and depressed mood F43.23 [place] [id number] [place] [address] 60929- 4488 14 Oct, 2016 Viral gastroenteritis A08.4 [place] [id number] [place] [address] 86141- 9889 09 Oct, 2016 Anxiety, generalized F41.1 ; Post-traumatic stress disorder F43.10 ; Adjustment disorder with depressed mood F43.21 and Adjustment disorder with anxious mood F43.22 [place] [id number] [place] [address] 79338- 2292 07 Oct, 2016 Panic disorder with agoraphobia F40.01 ; Cannabis use disorder, moderate, dependence F12.20 ; Bipolar disorder, unspecified F31.9 ; Cigarette nicotine dependence with other nicotine-induced disorder F17.218 ; Adjustment disorder with anxious mood F43.22 ; Anxiety, generalized F41.1 ; Post -traumatic stress disorder F43.10 and Cannabis dependence F12.20 [place] [id number] [place] [address] 75080- 8983 Oct, Bipolar disorder, unspecified F31.9 and Chronic post- traumatic stress disorder (PTSD) F43.12 [place] [id number] [place] [address] 73777- 3502 Oct, Bipolar disorder, unspecified F31.9 and Chronic post- traumatic stress disorder (PTSD) F43.12 [place] [id number] [place] [address] 28556- 8497 Sep, Bipolar disorder, unspecified F31.9 ; Panic disorder with agoraphobia F40.01 ; PTSD (post-traumatic stress disorder) F43.10 ; Cannabis use disorder, moderate, dependence F12.20 ; Cannabis dependence F12.20 and Anxiety, generalized F41.1 [place] [address] 126439- 489 Sep, Cannabis use disorder, moderate, dependence F12.20 ; Anxiety , generalized F41.1 and Adjustment disorder with mixed anxiety and depressed mood F43.23 [place] [address] 126439- 3004 15 Sep, 2016 Bipolar disorder, unspecified F31.9 ; Panic disorder with agoraphobia F40.01 ; PTSD (post-traumatic stress disorder) F43.10 ; Cannabis use disorder, moderate, dependence F12.20 ; Cannabis dependence F12.20 and Anxiety, generalized F41.1 [place] [address] 15069- 9840 Sep, Bipolar disorder, unspecified F31.9 ; Panic disorder with agoraphobia F40.01 ; PTSD (post-traumatic stress disorder) F43.10 ; Cannabis use disorder, moderate, dependence F12.20 ; Cannabis dependence F12.20 and Anxiety, generalized F41.1 [place] [address] [id number]- 6183 Sep, Bipolar disorder, unspecified F31.9 ; Post-traumatic stress disorder F43.10 and Cannabis dependence F12.20 [place] [address] 702982[address] Sep, [address]1547- 9078 Sep, Suicidal behavior without attempted self-injury R46.89 [place] [address] 126433- 3018 Sep, [place] [address] 126437- 8882 07 Sep, 2016 Cannabis use disorder, moderate, dependence F12.20 ; Panic disorder with agoraphobia F40.01 ; Bipolar disorder, unspecified F31.9 and Anxiety, generalized F41.1 [place] [id number] [place] [address] 22485- 7999 07 Sep, 2016 Bipolar disorder, unspecified F31.9 ; PTSD (post-traumatic stress disorder) F43.10 ; Panic disorder with agoraphobia F40.01 and Cannabis use disorder, moderate, dependence F12.20 [place] [address] 71175- 6665 Sep, [place] [id number] [place] [address] 12205- 7258 Sep, PTSD (post-traumatic stress disorder) F43.10 ; Cannabis use disorder, moderate, dependence F12.20 and Suicidal risk R45.[address] 12255- 4160 Sep, [place] [address] 95189- 1648 Jul, Bipolar disorder, unspecified F31.9 ; PTSD (post-traumatic stress disorder) F43.10 and Panic disorder with agoraphobia F40.01 [place] [id number] [place] [address] 02694- 0228 Jul, Obstructive sleep apnea syndrome G47.33 ; Moderate persistent asthma without complication J45.40 and Cigarette nicotine dependence with other nicotine-induced disorder F17.218 [place] [id number] [place] [address] 71573- 8786 Jul, [place] [address] 81318- 9779 Jul, [place] [address] [id number]- 5788 May, [place] [address] 38004- 3370 May, [place] [address] [place] [address]- 5849 May, [place] [id number] [place] [address] 89583- 8602 Apr, [place] [id number] [place] [address] 69157- 4143 Apr, Bipolar disorder, unspecified F31.9 ; PTSD (post-traumatic stress disorder) F43.10 ; Panic disorder with agoraphobia F40.01 and Cannabis use disorder, moderate, dependence F12.20 [place] [id number] [place] [address] 56376- 7554 Mar, Uncomplicated asthma, unspecified asthma severity J45.909 [place] [id number] [place] [address] 24832- 6028 Mar, [place] [address] 08091- 9327 Mar, Moderate persistent asthma without complication J45.40 ; Gastroesophageal reflux disease without esophagitis K21.9 and Cigarette nicotine dependence with other nicotine-induced disorder F17.218 [place] [id number] [place] [address] 21908- 0851 Feb, [place] [id number] [place] [address] 49499- 4293 Jan, Bipolar disorder, unspecified F31.9 ; PTSD (post-traumatic stress disorder) F43.10 ; Panic disorder with agoraphobia F40.01 and Cannabis use disorder, moderate, dependence F12.20 [place] [address] [place] [address] 20197- 0133 December, [place] [id number] [place] [address] 83321- 4802 Nov, [place] [id number] [place] [address] 71480- 1371 Nov, Bipolar disorder, unspecified F31.9 ; PTSD (post-traumatic stress disorder) F43.10 ; Panic disorder with agoraphobia F40.01 and Cannabis use disorder, moderate, dependence F12.20 [place] [address] [place] [address] 51407- 8710 Oct, [place] [id number] [place] [address] 72110- 2973 Oct, [place] [address] [place] [address] 55737- 2159 Sep, [place] [id number] [place] [address] 60312- 3804 Sep, Bipolar disorder, unspecified F31.9 ; PTSD (post-traumatic stress disorder) F43.10 ; Panic disorder with agoraphobia F40.01 and Cannabis use disorder, moderate, dependence F12.20 [place] [id number] [place] [address] 75700- 2410 Aug, [place] [id number] [place] [address] 94019- 0175 Aug, [place] [id number] [place] [address] 38059- 1661 Aug, Bipolar disorder, unspecified F31.9 ; PTSD (post-traumatic stress disorder) F43.10 ; Panic disorder with agoraphobia F40.01 and Cannabis use disorder, moderate, dependence F12.[address] [place] [address] 97752- 2355 Jul, [id number] [place] [address] 23393- 3338 24 Apr, 2015 GERD (gastroesophageal reflux disease) 530.81 and Internal hemorrhoids 455.0 [place] [id number] [place] [address] 34737- 2847 Feb, Rectal bleeding 569.3 and Hemorrhoids 455.6 [place] [id number] [place] [address] 70735- 8277 Jan, Sinusitis 473.9 and Otitis media 382.9 [facility] [place] [facility] [address] [id number] [place] [address]- 4637 December, [facility] [place] [facility] [address] [id number] [place] [address]- 8482 Nov, [facility] [place] [facility] [address] [id number] [place] 4634 Nov, [facility] [place] [facility] [address] [id number] [place] 1435 Oct, [facility] [place] [facility] [address] [id number] [place] [address]- 7246 Oct, [facility] [place] [facility] [address] [id number] [place] [address]- 6619 Sep, [facility] [place] [facility] [address] [facility] [id number] [place] [address]- 9914 Sep, [facility] [place] [facility] [address] [facility] [id number], [place] [address]- 1260 Aug, [facility] [place] [facility] [address] [facility] [id number], [place] [address]- 0515 Aug, [facility] [place] [facility] [address] [facility] [id number] [address]- 9365 Jul, [facility] [place] [facility] [address] [facility] [id number], [place] [address]- 4037 Jul, [facility] [place] [facility] [address] [facility] [id number] [address]- 2787 Jul, [facility] [place] [facility] [address] [facility] [id number], [place] [address]- 0636 Jul, [facility] [place] [facility] [address] [facility] [id number][place]- 7158 Jul, [facility] [place] [facility] [address] [facility] [id number]- 9237 Jul, [facility] [place] [facility] [address] [id number], [place] [address]- 6421 Jul, [facility] [place] [facility] [address] [id number] [place] [address]- 1883 Jul, [facility] [place] [facility] [address] [id number] [place] [address]- 5653 Jun, [facility] [place] [facility] [address] [facility] [id number] [place] [address]- 2603 Jun, [facility] [place] [facility] [address] [id number] [place] [address]- 1326 Jun, [facility] [place] [facility] [address] [id number] [place] [address]- 7923 Jun, [facility] [place] [facility] [address] [id number] [place] [address]- 0202 May, [facility] [place] [facility] [address] [facility] [id number], [place] [address]- 9162 May, [facility] [place] [facility] [address] [id number] [place] [address]- 7284 May, [facility] [place] [facility] [address] [facility] [id number] [place] [address]- 6209 May, [facility] [place] [facility] [address] [facility] [id number], [place] [address]- 5296 Apr, [facility] [place] [facility] [address] [id number], [place] [address]- 3568 Apr, [facility] [place] [facility] [address] [id number], [place] [address]- 6474 Apr, [facility] [place] [facility] [address] [id number] [place] [address]- 8619 Apr, [facility] [place] [facility] [address] [facility] [id number], [place] [address]- 0584 Mar, [facility] [place] [facility] [address] [facility] [id number] [place] [address]- 8632 Mar, [facility] [place] [facility] [address] [id number] [place] [address]- 7907 Mar, [facility] [place] [facility] [address] [id number] [place] 9925 Mar, [facility] [place] [facility] [address] [id number] [place] [address]- 9261 December, [facility] [place] [facility] [address] [id number] [place] [address]- 0179 December, [facility] [place] [facility] [address] [id number] [place] [address]- 7224 Nov, [facility] [place] [facility] [address] [id number] [place] [address]- 0446 Nov, [facility] [place] [facility] [address] [id number] [place] [address]- 1514 Sep, [facility] [place] [facility] [address] [id number] [place] [address]- 4276 Sep, [facility] [place] [facility] [address] [id number] [place] [address]- 3746 Sep, [facility] [place] [facility] [address] [id number] [place] [address]- 1839 Sep, [facility] [place] [facility] [address] [id number] [place] [address]- 7532 Aug, [facility] [place] [facility] [address] [id number] [place] [address]- 2514 Jul, [facility] [place] [facility] [address] [id number] [place] [address]- 3720 Jul, [facility] [place] [facility] [address] [id number] [place] [address]- 8515 Jun, [facility] [place] [facility] [address] [id number] [place] [address]- 7343 Jun, [facility] [place] [facility] [address] [id number] [place] [address]- 0349 18 May, 2013 [facility] [place] [facility] [address] [id number] [place] [address]- 0931 18 May, 2013 [facility] [place] [facility] [address] [id number] [place] [address]- 5616 07 May, 2013 [facility] [place] [facility] [address] [id number] [place] [address]- 7815 17 Apr, 2013 [facility] [place] [facility] [address] [id number] [place] [address]- 3566 16 Apr, 2013 [facility] [place] [facility] [address] [id number] [place] [address]- 1949 Apr, [facility] [place] [facility] [address] [id number] [place] [address]- 4391 Apr, [facility] [place] [facility] [address] [id number] [place] [address]- 0755 Mar, [facility] [place] [facility] [address] [id number] [place] [address]- 3289 Mar, [facility] [place] [facility] [address] [id number] [place] [address]- 5773 December, [facility] [place] [facility] [address] [id number] [place] [address]- 4142 Oct, [facility] [place] [facility] [address] [id number] [place] [address]- 9631 Oct, [facility] [place] [facility] [address] [id number] [place] [address]- 3301 Aug, [facility] [place] [facility] [address] [id number] [place] [address]- 7220 Jul, [facility] [place] [facility] [address] [id number] [place] [address]- 8689 Jul, [facility] [place] [facility] [address] [id number] [place] [address]- 1306 Jul, [facility] [place] [facility] [address] [id number] [place] [address] 2546 13 Jul, 2012 [facility] [address] [id number] [place] [address]- 2803 14 Jun, 2012 [facility] [address] [id number] [place] [address]- 2546 14 Jun, 2012 [facility] [address] [id number] [place] [address]- 8176 14 Mar, 2012 [facility] [address] [id number] [place] [address]- 2546 16 Feb, 2012 [facility] [address] [id number] [place] [address]- 2106 16 Feb, 2012 [facility] [address] [id number] [place] [address]- 0556 December, [facility] [address] [id number] [place] [address]- 0356 17 Nov, 2011 [facility] [address] [id number] [place] [address]- 7474 Oct, [facility] [address] [id number] [place] [address]- 0256 Oct, [facility] [address] [id number] [place] [address]- 3336 Sep, [facility] [address] [id number] [place] [address]- 2546 Sep, [facility] [address] [id number] [place] [address]- 1856 Aug, [facility] [address] [id number] [place] [address]- 2546 Aug, [facility] [address] [id number] [place] [address]- 2546 Jul, [facility] [address] [id number] [place] [address] Jul, [facility] [address] [facility] [id number], [place] [address] Jul, [facility] [address] [facility] [id number] [place] [address] Jun, [facility] [address] [facility] [id number] [place] [address] May, [facility] [address] [facility] [id number] [place] [address] Apr, [facility] [address] [facility] [id number] [place] Feb, [facility] [address] [facility] [id number], [place] [address] Sep, [facility] [address] [facility] [id number] [place] [address] Jul, [facility] [address] [facility] [id number], [place] [address] Jul, [facility] [address] [facility] [id number], [place] [address] Jul, [facility] [address] [facility] [id number], [place] [address] Jul, [facility] [address] [facility] [id number], [place] [address] Jun, [facility] [address] [facility] [id number], [place] [address] Feb, [facility] [address] [facility] [id number], [place] [address] Jan, [facility] [address] [facility] [id number], [place] [address] Feb, [facility] [address] [facility] [id number], [place] [address] Jul, IMMUNIZATIONS No Known Immunizations SOCIAL HISTORY Never Assessed REASON FOR VISIT Psychiatric f/u-[place] PLAN OF CARE Activity Details Follow Up 6 Weeks Reason: VITAL SIGNS Height 76 in 2017-08-11 Weight 222.5 lbs 2017-08-11 Heart Rate 84 bpm 2017-08-11 Respiratory Rate 18 2017-08-11 BMI 27.08 kg/m2 2017-08-11 Blood pressure systolic 108 mmHg 2017-08-11 Blood pressure diastolic 72 mmHg 2017-08-11 MEDICATIONS Medication Instructions Dosage Frequency Start Date End Date Duration Status Qvar 40 MCG/ACT INHALE 2 PUFF BY INHALATION ROUTE 2 TIMES PER DAY Active Advair Diskus 250-50 MCG/DOSE Inhalation Twice a day 1 puff 12h Active Meclizine HCl 25 MG Orally TID PRN, dizziness 1 Feb, 0 days Active Omeprazole 20 MG Orally Once a day 1 CAPSULE 24h 30 days Active Loxapine Succinate 10 mg TAKE 4 CAPSULES BY MOUTH AT BEDTIME 30 Active Zofran 4 MG Orally Once a day 1 tablet 24h 24 May, 2017 14 days Active Ibuprofen 800 MG TAKE 1 TABLET (800 MG) BY ORAL ROUTE 3 TIMES PER DAY WITH FOOD 90 Active Gabapentin 300 mg Orally in the AM and 6PM for anxiety 1 capsule Active Metoprolol Tartrate 25 MG Orally Twice a day for panic 1 tablet Jul, Active Singulair 10 MG 1 TABLET BY ORAL ROUTE 1 TIME PER DAY Active Neurontin 300 MG Orally Once a day as needed for anxiety 1 capsule 30 Not-Taking Symbicort 160-4.5 MCG/ACT Inhalation Twice a day 2 puffs 12h 30 Mar, 2016 Active Lexapro 10 MG Orally Once a day 1 tablet 24h Aug, 30 day(s) Active ProAir HFA 108 (90 Base) MCG/ACT [...]
[2018-05-13] MEDS ORDERED: NS 250 ML (IVPB) BAG IV ONE (11:45)
[2018-05-13] MEDS ORDERED: morphine INJ 10 MG/ML 1ML (SYR OR VIAL) IVP ONE (11:45)
[2018-05-13] MEDS ORDERED: IOHEXOL 350 MG/ML 100 ML (OMNIPAQUE 350) VIAL IV ONE (11:45)
[2018-05-13] MEDS ORDERED: NS IV 1000 ML 1,000 ML IV SCH (11:45)
[2018-05-13] MEDS ORDERED: KETOROLAC 30 MG/ML VIAL IVP ONE (11:45)
--- OUTSIDE RECORDS SUMMARY | 2018-05-13 11:45 | XMS REPORT | Continuity of Care Document ---
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 culture - 09/15/16 11:47 Urine color determination YELLOW NRG Urine clarity determination CLEAR NRG Urine pH measurement by test strip 8 5-9 Specific gravity of urine by test strip 1.010 1.016- 1.022 Urine protein assay by test strip, semi-quantitative NEGATIVE NEGATIVE Urine glucose detection by automated test strip NEGATIVE NEGATIVE Erythrocytes detection in urine sediment by light microscopy NEGATIVE NEGATIVE Urine ketones detection by automated test strip NEGATIVE NEGATIVE Urine nitrite detection by test strip NEGATIVE NEGATIVE Urine total bilirubin detection by test strip NEGATIVE NEGATIVE Urine urobilinogen measurement by automated test strip (mass/volume) NORMAL NORMAL Urine leukocyte esterase detection by dipstick NEGATIVE NEGATIVE Automated urine sediment erythrocyte count by microscopy (number/high power field) NONE NRG Automated urine sediment leukocyte count by microscopy (number/high power field ) NONE NRG Bacteria detection in urine sediment by light microscopy NEGATIVE NRG Squamous epithelial cells detection in urine sediment by light microscopy 0-2 NRG Crystals detection in urine sediment by light microscopy NONE NRG Casts detection in urine sediment by light microscopy NONE NRG Mucus detection in urine sediment by light microscopy NEGATIVE NRG Complete urinalysis with reflex to culture NO NRG Complete blood count (CBC) with automated white blood cell (WBC) differential - 12/07/17 09:35 Blood leukocytes automated count (number/volume) 9.3 10*3/uL 4.3-11.0 Blood erythrocytes automated count (number/volume) 5.08 10*6/uL 4.35-5.85 Venous blood hemoglobin measurement (mass/volume) 15.3 g/dL 13.3-17.7 Blood hematocrit (volume fraction) 44 % 40-54 Automated erythrocyte mean corpuscular volume 87 [foz_us] 80-99 Automated erythrocyte mean corpuscular hemoglobin (mass per erythrocyte) 30 pg 25-34 Automated erythrocyte mean corpuscular hemoglobin concentration measurement ( mass/volume) 35 g/dL 32-36 Automated erythrocyte distribution width ratio 13.9 % 10.0-14.5 Automated blood platelet count (count/volume) 274 10*3/uL 130-400 Automated blood platelet mean volume measurement 9.5 [foz_us] 7.4-10.4 Automated blood neutrophils/100 leukocytes 68 % 42-75 Automated blood lymphocytes/100 leukocytes 19 % 12-44 Blood monocytes/100 leukocytes 9 % 0-12 Automated blood eosinophils/100 leukocytes 4 % 0-10 Automated blood basophils/100 leukocytes 1 % 0-10 Blood neutrophils automated count (number/volume) 6.3 10*3 1.8-7.8 Blood lymphocytes automated count (number/volume) 1.7 10*3 1.0-4.0 Blood monocytes automated count (number/volume) 0.8 10*3 0.0-1.0 Automated eosinophil count 0.4 10*3/uL 0.0-0.3 Automated blood basophil count (count/volume) 0.1 10*3/uL 0.0-0.1 Comprehensive metabolic panel - 12/07/17 09:35 Serum or plasma sodium measurement (moles/volume) 141 mmol/L 135-145 Serum or plasma potassium measurement (moles/volume) 4.1 mmol/L 3.6-5.0 Serum or plasma chloride measurement (moles/volume) 109 mmol/L 98-107 Carbon dioxide 26 mmol/L 21-32 Serum or plasma anion gap determination (moles/volume) 6 mmol/L 5-14 Serum or plasma urea nitrogen measurement (mass/volume) 12 mg/dL 7-18 Serum or plasma creatinine measurement (mass/volume) 0.86 mg/dL 0.60-1.30 Serum or plasma urea nitrogen/creatinine mass ratio 14 NRG Serum or plasma creatinine measurement with calculation of estimated glomerular filtration rate > NRG Serum or plasma glucose measurement (mass/volume) 98 mg/dL 70-105 Serum or plasma calcium measurement (mass/volume) 9.1 mg/dL 8.5-10.1 Serum or plasma total bilirubin measurement (mass/volume) 0.4 mg/dL 0.1-1.0 Serum or plasma alkaline phosphatase measurement (enzymatic activity/volume) 67 U/L 40-136 Serum or plasma aspartate aminotransferase measurement (enzymatic activity/ volume) 13 U/L 5-34 Serum or plasma alanine aminotransferase measurement (enzymatic activity/volume ) 12 U/L 0-55 Serum or plasma protein measurement (mass/volume) 6.9 g/dL 6.4-8.2 Serum or plasma albumin measurement (mass/volume) 4.3 g/dL 3.2-4.5 Magnesium - 12/07/17 09:35 Magnesium 2.3 mg/dL 1.8-2.4 Serum or plasma creatine kinase measurement (enzymatic activity/volume) - 12/07 09:35 Serum or plasma creatine kinase measurement (enzymatic activity/volume) 151 U/L 30-200 Serum or plasma creatine kinase MB measurement (enzymatic activity/volume) - 09:35 Serum or plasma creatine kinase MB measurement (enzymatic activity/volume) 1.2 ng/mL <6.6 Serum or plasma troponin i.cardiac measurement (mass/volume) - 12/07/17 09:35 Serum or plasma troponin i.cardiac measurement (mass/volume) < ng/ mL <0.30 Serum or plasma amylase measurement (enzymatic activity/volume) - 12/07/17 09: 35 Serum or plasma amylase measurement (enzymatic activity/volume) 55 U /L 25-125 Lipase - 12/07/17 09:35 Lipase 27 U/L 8-78 Serum or plasma lithium measurement (moles/volume) - 12/07/17 09:35 BNP level 30.0 pg/mL <100.0 Urine drug screening test - 12/07/17 09:50 Urine phencyclidine detection by screening method NEGATIVE NEGATIVE Urine benzodiazepines detection by screening method NEGATIVE NEGATIVE Urine cocaine detection NEGATIVE NEGATIVE Urine amphetamines detection by screening method NEGATIVE NEGATIVE Urine methamphetamine detection by screening method NEGATIVE NEGATIVE Urine cannabinoids detection by screening method POSITIVE NEGATIVE Urine opiates detection by screening method NEGATIVE NEGATIVE Urine barbiturates detection NEGATIVE NEGATIVE Screening urine tricyclic antidepressants detection NEGATIVE NEGATIVE Urine methadone detection by screening method NEGATIVE NEGATIVE Urine oxycodone detection NEGATIVE NEGATIVE Urine propoxyphene detection NEGATIVE NEGATIVE Encounters ACCT No. Visit Date/Time Discharge Status Pt. Type Provider Facility Loc./Unit Complaint [id number] 07/20/2014 10:28:00 07/20/2014 23:59:59 CLS Outpatient PETRA GARZON MD [id number] 04/17/2014 12:30:00 04/17/2014 23:59:59 CLS Outpatient ROSA DOTSON APRNIA R [id number] 03/27/2014 15:44:00 03/27/2014 23:59:59 CLS Outpatient PETRA GARZON MD [id number] 09/19/2013 16:35:00 09/19/2013 23:59:59 CLS Outpatient PETRA GARZON MD [id number] 08/23/2013 08:26:00 08/23/2013 23:59:59 CLS Outpatient NIRANJAN ALATORRE MD [id number] 06/20/2013 14:24:00 06/20/2013 23:59:59 CLS Outpatient SAMIA RACHEL April [id number] 05/27/2013 08:53:00 05/27/2013 23:59:59 CLS Outpatient PETRA GARZON MD [id number] 04/25/2013 13:26:00 04/25/2013 23:59:59 CLS Outpatient PETRA GARZON MD [id number] 09/03/2012 10:45:00 09/03/2012 23:59:59 CLS Outpatient SOHAIL LIRIANO DDSYSCRISTEL Sanchez [id number] 08/19/2012 10:57:00 08/19/2012 23:59:59 CLS Outpatient [id number] 03/23/2012 15:23:00 03/23/2012 23:59:59 CLS Outpatient [id number] 03/23/2012 15:23:00 03/23/2012 23:59:59 CLS Outpatient PETRA GARZON MD [id number] 12/10/2012 13:42:00 Document Registration [id number] 12/07/2017 09:26:00 12/07/2017 10:46:00 DIS Emergency BECCA BURK DO [facility] ER CHEST PAIN [id number] 09/15/2016 10:05:00 09/15/2016 13:10:00 DIS Emergency AMI CALLAHAN [employer] [facility] ER SUICIDAL [id number] 01/17/2016 11:07:00 01/17/2016 23:59:59 CLS Outpatient SCARLETT WARD MD (DDU) [facility] RAD DDU [id number] 12/22/2013 12:03:00 12/22/2013 14:06:00 DIS Emergency BECCA BURK DO [facility] ER CHEST PAIN [id number] 09/15/2013 14:04:00 09/15/2013 14:55:00 DIS Emergency AMI CALLAHAN APRN [facility] ER ADRIANA HAND PAIN [id number] 07/04/2013 07:56:00 07/04/2013 11:12:00 DIS Outpatient NIRANJAN ALATORRE MD [facility] SDC RECTAL BLEEDING [id number] 06/29/2013 07:34:00 06/29/2013 23:59:59 CLS Outpatient NIRANJAN ALATORRE MD [facility] PREOP RECTAL BLEEDING [id number] 08/14/2011 10:29:00 Document Registration
[2018-05-13 12:01] LABS: ALANINE AMINOTRANSFERASE 15 U/L (0-55); ALBUMIN 4.6 GM/DL (3.2-4.5); ALKALINE PHOSPHATASE 80 U/L (40-136); BILIRUBIN,TOTAL 0.3 MG/DL (0.1-1.0); BUN/CREATININE RATIO 11; CALCIUM 9.5 MG/DL (8.5-10.1); CARBON DIOXIDE 23 MMOL/L (21-32); CHLORIDE 106 MMOL/L (98-107); CREATININE SERUM 1.06 MG/DL (0.60-1.30); GFR ESTIMATED > 60; GLUCOSE 89 MG/DL (70-105); POTASSIUM 4.2 MMOL/L (3.6-5.0); SODIUM 139 MMOL/L (135-145); TOTAL PROTEIN 7.4 GM/DL (6.4-8.2)
[2018-05-13 12:09] LABS: BAND NEUTROPHILS 1 %; BASOPHILS % (MANUAL) 1 %; EOSINOPHILS % (MANUAL) 0 %; LYMPHOCYTES % (MANUAL) 17 %; MONOCYTES % (MANUAL) 3 %; NEUTROPHILS % (MANUAL) 72 %; RBC MORPH NORMAL; REACTIVE LYMPHOCYTES 6 %
[2018-05-13] MEDS ORDERED: RECEIVED CONTRAST (Hold Metformin) IV SCH (12:30)
[2018-05-13] MEDS ORDERED: LORazepam INJ 2 MG/ML (ATIVAN) VIAL IVP PRN (12:30)
--- NOTE | 2018-05-13 12:40 | Diagnostic Imaging Report ---
PROCEDURE: CT chest and abdomen with contrast. TECHNIQUE: Multiple contiguous axial images were obtained through the chest and abdomen after the administration of intravenous contrast. INDICATION: Severe left-sided pain. CT CHEST: No axillary, hilar or mediastinal lymphadenopathy is seen. No pericardial or pleural fluid is identified. No pneumothorax is seen. There is dependent atelectasis both lung bases. Lungs are otherwise clear. There appears fracture of the left lateral seventh rib. No other abnormalities are seen. IMPRESSION: Left lateral seventh rib fracture. No other abnormality is seen. CT ABDOMEN: The liver, gallbladder and spleen are unremarkable. The pancreas is unremarkable. No adrenal mass is seen. Kidneys are unremarkable. The aorta is non-aneurysmal. The small and large bowel loops are nonobstructed. There is no ascites or free air. IMPRESSION: Unremarkable CT of the abdomen. Dictated by: Dictated on workstation # [id number]
[2018-05-13] MEDS ORDERED: OXYC1TAB87 PO (12:45)
--- NOTE | 2018-05-13 12:48 | Diagnostic Imaging Report ---
INDICATION: Left-sided abdominal pain. TIME OF EXAM: 12:40 p.m. COMPARISON: Correlation is made with prior study of 12/07/2017. FINDINGS: The heart size is normal. The pulmonary vascularity is unremarkable. The lungs are clear. No infiltrate, effusion or pneumothorax is detected. IMPRESSION: No acute cardiopulmonary process is detected. Dictated by: Dictated on workstation # [id number]
[2018-05-13 13:00] VITALS: BP 116/89
[2018-05-13] MEDS ORDERED: fentaNYL INJECTION 100 MCG/2 ML AMP IVP ONE (13:00)
== END 2018-05-13 13:01 | disposition home or self-care (01) ==
LOC: EDUNIT# 11:26 → ER 11:27
DX: S22.32XA Fracture of one rib, left side, initial encounter for closed fracture (principal); J44.9 Chronic obstructive pulmonary disease, unspecified; I10 Essential (primary) hypertension; K21.9 Gastro-esophageal reflux disease without esophagitis; F32.9 Major depressive disorder, single episode, unspecified; Z87.19 Personal history of other diseases of the digestive system; Z88.0 Allergy status to penicillin; Z88.5 Allergy status to narcotic agent; Z79.51 Long term (current) use of inhaled steroids; Z79.52 Long term (current) use of systemic steroids; Z77.22 Contact with and (suspected) exposure to environmental tobacco smoke (acute) (chronic); X58.XXXA Exposure to other specified factors, initial encounter
CPT/HCPCS: 36415; 71045; 71260; 74160; 80053; 85007; 85027

== ENCOUNTER → 2018-05-27 | Outpatient (CLI) | payer OTHER ==
[~2018-05-27] MED LIST changes: +OXYC1TAB87 PO
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
== END ==
LOC: RAD 10:34
PROVIDERS: ATTEND Internal Medicine
DX: R56.9 Unspecified convulsions (principal); R90.82 White matter disease, unspecified
CPT/HCPCS: 70551

== ENCOUNTER 2018-06-08 15:54 | Emergency (ER) | payer OTHER ==
[~2018-06-08] VITALS: Ht 193 cm; Wt 90.7 kg
--- OUTSIDE RECORDS SUMMARY | 2018-06-08 16:00 | XMS REPORT ---
Author Author JAGRUTI KORY [facility] Address [address] [place] [address] Care Team Providers Care Pan Puller Name Role Phone KORY CHAND Unavailable PROBLEMS Type Condition ICD9-CM Code [id number] Code Onset Dates Condition Status SNOMED Code Problem Anxiety, generalized F41.1 Active 04184439 Problem Post-traumatic stress disorder F43.10 Active 44999490 Problem Cannabis dependence F12.20 Active 68607662 Problem Seizures R56.9 Active 35333538 Problem Other chronic pain G89.29 Active 48417269 Problem Adjustment disorder with mixed anxiety and depressed mood F43.23 Active 17168841 Problem Chronic post-traumatic stress disorder (PTSD) F43.12 Active 300187632 Problem Adjustment disorder with depressed mood F43.21 Active 54020623 Problem Adjustment disorder with anxious mood F43.22 Active 39798149 Problem Bipolar disorder, unspecified F31.9 Active 78774617 Problem Gastroesophageal reflux disease without esophagitis K21.9 Active 163253403 Problem Cigarette nicotine dependence with other nicotine-induced disorder F17.218 Active 52962909 Problem Panic disorder with agoraphobia F40.01 Active 80459652 Problem Moderate persistent asthma without complication J45.40 Active 052780068 Problem Cannabis use disorder, moderate, dependence F12.20 Active 30357650 Problem Obstructive sleep apnea syndrome G47.33 Active 61583677 ALLERGIES No Information ENCOUNTERS Encounter Location Date Diagnosis [facility] [address] [facility] [id number] [address] Aug, [facility] [address], [place] [address] 9467 May, [facility] [address] [id number], [place] [address] 6164 May, [facility] [address] [id number], [place] [address] 0753 May, [facility] [id number] [place] [address] 42446- 8771 May, [facility] [id number] [place] [address] 85001- 6775 May, Seizures R56.9 [facility] [id number] [place] [address] 75417- 1980 May, [facility] [id number] [place] [address] 02003- 4710 Apr, [facility] [id number] [place] [address] 83745- 4157 Apr, [facility] [id number] [place] [address] 43547- 5664 Apr, [facility] [id number] [place] [address] 30565- 0403 Apr, [facility] [id number] [place] [address] 01331- 8095 Apr, Bipolar disorder, unspecified F31.9 ; Panic disorder with agoraphobia F40.01 and Cannabis use disorder, moderate, dependence F12.20 [facility] [id number] [place] [address] 38532- 8374 Mar, [facility] [id number] [place] [address] 87477- 3211 Mar, [facility] [id number] [place] [address] 84329- 8633 Jan, Low back pain M54.5 ; Moderate persistent asthma without complication J45.40 and Other chronic pain G89.29 [facility] [id number] [place] [address] 39510- 5824 Jan, Moderate persistent asthma without complication J45.40 ; Low back pain M54.5 ; Other chronic pain G89.29 ; Gastroesophageal reflux disease without esophagitis K21.9 and Cigarette nicotine dependence with other nicotine-induced disorder F17.218 [facility] [address] [place] [address] 24523- 0952 December, Bipolar disorder, unspecified F31.9 ; Panic disorder with agoraphobia F40.01 ; Cannabis use disorder, moderate, dependence F12.20 and Chronic post-traumatic stress disorder (PTSD) F43.12 [facility] [id number] [place] [address] 047720- 2229 December, [facility] [id number] [place] [address] 14092- 5087 December, [facility] [id number] [place] [address] 11325- 2937 Nov, [facility] [id number] [place] [address] 12319- 3251 Oct, Bipolar disorder, unspecified F31.9 ; Chronic post- traumatic stress disorder (PTSD) F43.12 ; Panic disorder with agoraphobia F40.01 and Cannabis use disorder, moderate, dependence F12.20 [facility] [id number] [place] [address] 24880- 6135 Sep, [facility] [id number] [place] [address] Sep, [facility] [id number] [place] [address] 20936- 7695 Aug, [facility] [id number] [place] [address] 484050- 7680 Aug, Cannabis use disorder, moderate, dependence F12.20 ; Panic disorder with agoraphobia F40.01 and Bipolar affective disorder, currently depressed, moderate F31.32 [facility] [facility] [id number] [place] [address] May, Diarrhea of presumed infectious origin A09 and Nausea and vomiting, intractability of vomiting not specified, unspecified vomiting type R11.2 [facility] [id number] [place] [address] 23541- 2653 Apr, [facility] [id number] [place] [address] 47018- 5065 Mar, Nausea R11.0 and Gastroenteritis K52.9 [facility] [id number] [place] [address] 19998- 2170 Mar, Gastroesophageal reflux disease without esophagitis K21.9 [facility] [id number] [place] [address] 81759- 5838 Mar, Gastroesophageal reflux disease without esophagitis K21.9 [facility] [address] 51013- 6982 Mar, [facility] [id number] [place] [address] 40199- 4199 Mar, [facility] [id number] [place] [address] 65312- 0588 Mar, [facility] [id number] [place] [address] 79164- 5669 Feb, Acute pain of right shoulder M25.511 and Muscle spasm M62.838 [facility] [id number] [place] [address] 03923- 2195 Feb, Acute labyrinthitis, unspecified laterality H83.09 [facility] [id number] [place] [address] 62478- 6842 December, [facility] [id number] [place] [address] 69739- 9162 December, [facility] [id number] [place] [address] 59714- 9741 December, Cannabis use disorder, moderate, dependence F12.20 ; Anxiety , generalized F41.1 ; Adjustment disorder with mixed anxiety and depressed mood F43.23 and Chronic post-traumatic stress disorder (PTSD) F43.12 [facility] [id number] [place] [address] 45674- 8130 December, [facility] [facility] [address], [place] [address]- 3633 December, [facility] [id number] [place] [address] 74391- 4817 Nov, Acute nasopharyngitis J00 [facility] [id number] [place] [address] 02860- 8507 Nov, Cannabis use disorder, moderate, dependence F12.20 ; Anxiety , generalized F41.1 ; Adjustment disorder with mixed anxiety and depressed mood F43.23 and Chronic post-traumatic stress disorder (PTSD) F43.12 [facility] [id number] [place] [address] 65455- 6003 Nov, Cannabis use disorder, moderate, dependence F12.20 ; Anxiety , generalized F41.1 ; Adjustment disorder with mixed anxiety and depressed mood F43.23 and Chronic post-traumatic stress disorder (PTSD) F43.12 [facility] [facility] [id number] [place] [address] 83962- 5507 Oct, Diarrhea, unspecified R19.7 ; Vomiting, unspecified R11.10 and Viral gastroenteritis A08.4 [facility] [id number] [place] [address] 29181- 9177 Oct, Bipolar disorder, unspecified F31.9 ; Panic disorder with agoraphobia F40.01 ; Cannabis use disorder, moderate, dependence F12.20 ; Cigarette nicotine dependence with other nicotine-induced disorder F17.218 ; Anxiety, generalized F41.1 ; Post-traumatic stress disorder F43.10 and Adjustment disorder with mixed anxiety and depressed mood F43.23 [facility] [address] [place] [address] 83076- 0846 Oct, Bipolar disorder, unspecified F31.9 ; Chronic post- traumatic stress disorder (PTSD) F43.12 ; Panic disorder with agoraphobia F40.01 and Cannabis use disorder, moderate, dependence F12.20 [facility] [id number] [place] [address] 16846- 8329 Oct, Bipolar disorder, unspecified F31.9 ; Panic disorder with agoraphobia F40.01 ; Cannabis use disorder, moderate, dependence F12.20 ; Cigarette nicotine dependence with other nicotine-induced disorder F17.218 ; Anxiety, generalized F41.1 ; Post-traumatic stress disorder F43.10 and Adjustment disorder with mixed anxiety and depressed mood F43.23 [facility] [address] [place] [address] 59750- 3206 14 Oct, 2016 Viral gastroenteritis A08.4 [id number] [place] [address] 80998- 9560 09 Oct, 2016 Anxiety, generalized F41.1 ; Post-traumatic stress disorder F43.10 ; Adjustment disorder with depressed mood F43.21 and Adjustment disorder with anxious mood F43.22 [facility] [facility] [id number] [place] [address] 32546- 1951 07 Oct, 2016 Panic disorder with agoraphobia F40.01 ; Cannabis use disorder, moderate, dependence F12.20 ; Bipolar disorder, unspecified F31.9 ; Cigarette nicotine dependence with other nicotine-induced disorder F17.218 ; Adjustment disorder with anxious mood F43.22 ; Anxiety, generalized F41.1 ; Post -traumatic stress disorder F43.10 and Cannabis dependence F12.20 [address] [place] [address] [place] [address] 83538- 8003 Oct, Bipolar disorder, unspecified F31.9 and Chronic post- traumatic stress disorder (PTSD) F43.12 [address] [place] [address] [place] [address] 86089- 9058 Oct, Bipolar disorder, unspecified F31.9 and Chronic post- traumatic stress disorder (PTSD) F43.12 [id number] [place] [address] 22224- 0959 Sep, Bipolar disorder, unspecified F31.9 ; Panic disorder with agoraphobia F40.01 ; PTSD (post-traumatic stress disorder) F43.10 ; Cannabis use disorder, moderate, dependence F12.20 ; Cannabis dependence F12.20 and Anxiety, generalized F41.1 [facility] [facility] [id number] [place] [address] 33405- 0169 Sep, Cannabis use disorder, moderate, dependence F12.20 ; Anxiety , generalized F41.1 and Adjustment disorder with mixed anxiety and depressed mood F43.23 [facility] [id number] [place] [address] 52838- 3546 15 Sep, 2016 Bipolar disorder, unspecified F31.9 ; Panic disorder with agoraphobia F40.01 ; PTSD (post-traumatic stress disorder) F43.10 ; Cannabis use disorder, moderate, dependence F12.20 ; Cannabis dependence F12.20 and Anxiety, generalized F41.1 [facility] [id number] [place] [address] 53497- 7130 10 Sep, 2016 Bipolar disorder, unspecified F31.9 ; Panic disorder with agoraphobia F40.01 ; PTSD (post-traumatic stress disorder) F43.10 ; Cannabis use disorder, moderate, dependence F12.20 ; Cannabis dependence F12.20 and Anxiety, generalized F41.1 [facility] [facility] [id number] [place] [address] 41786- 1466 Sep, Bipolar disorder, unspecified F31.9 ; Post-traumatic stress disorder F43.10 and Cannabis dependence F12.20 [address] [address] [address] [place] [address] Sep, [facility] [id number] [place] [address] 22432- 5636 Sep, Suicidal behavior without attempted self-injury R46.89 [facility] [id number] [place] [address] 16804- 5709 Sep, [address] [address] 99717- 4715 07 Sep, 2016 Cannabis use disorder, moderate, dependence F12.20 ; Panic disorder with agoraphobia F40.01 ; Bipolar disorder, unspecified F31.9 and Anxiety, generalized F41.1 [address] [facility] [id number] [place] [address] 84984- 3704 Sep, Bipolar disorder, unspecified F31.9 ; PTSD (post-traumatic stress disorder) F43.10 ; Panic disorder with agoraphobia F40.01 and Cannabis use disorder, moderate, dependence F12.20 [address] [place] [address] [place] [address] 12665- 1983 Sep, [facility] [facility] [id number] [place] [address] 70627- 6575 Sep, PTSD (post-traumatic stress disorder) F43.10 ; Cannabis use disorder, moderate, dependence F12.20 and Suicidal risk R45.89 [address] [id number] [place] [address] 02577- 8988 Sep, [facility] [id number] [place] [address] 54917- 2465 Jul, Bipolar disorder, unspecified F31.9 ; PTSD (post-traumatic stress disorder) F43.10 and Panic disorder with agoraphobia F40.01 [address] [place] [id number] [place] [address] 94566- 8650 Jul, Obstructive sleep apnea syndrome G47.33 ; Moderate persistent asthma without complication J45.40 and Cigarette nicotine dependence with other nicotine-induced disorder F17.218 [facility] [facility] [id number] [place] [address] 88824- 2022 Jul, [facility] [id number] [place] [address] 10020- 2544 Jul, [facility] [address] [place] [address] 82646- 0293 May, [facility] [id number] [place] [address] 16598- 5340 May, [facility] [id number] [place] [address] 82914- 7602 May, [facility] [id number] [place] [address] 2546 Apr, [facility] [facility] [address], [place] [address]- 0408 Apr, Bipolar disorder, unspecified F31.9 ; PTSD (post-traumatic stress disorder) F43.10 ; Panic disorder with agoraphobia F40.01 and Cannabis use disorder, moderate, dependence F12.20 [facility] [id number] [place] [address] 46026- 4774 Mar, Uncomplicated asthma, unspecified asthma severity J45.909 [facility] [id number] [place] [address] 69842- 8335 Mar, [facility] [id number] [place] [address] 92263- 3315 Mar, Moderate persistent asthma without complication J45.40 ; Gastroesophageal reflux disease without esophagitis K21.9 and Cigarette nicotine dependence with other nicotine-induced disorder F17.218 [facility] [id number] [place] [address] 87975- 5048 Feb, [facility] [id number] [place] [address] 45153- 4785 Jan, Bipolar disorder, unspecified F31.9 ; PTSD (post-traumatic stress disorder) F43.10 ; Panic disorder with agoraphobia F40.01 and Cannabis use disorder, moderate, dependence F12.20 [address] [address] [place] [address] 70083- 8953 December, [facility] [id number] [place] [address] 98239- 0218 Nov, [facility] [id number] [place] [address] 86358- 5008 Nov, Bipolar disorder, unspecified F31.9 ; PTSD (post-traumatic stress disorder) F43.10 ; Panic disorder with agoraphobia F40.01 and Cannabis use disorder, moderate, dependence F12.20 [facility] [id number] [place] [address] 44455- 4118 Oct, [facility] [id number] [place] [address] 56243- 1120 Oct, [facility] [id number] [place] [address] 454272- 3985 Sep, [facility] [id number] [place] [address] 03383- 4827 Sep, Bipolar disorder, unspecified F31.9 ; PTSD (post-traumatic stress disorder) F43.10 ; Panic disorder with agoraphobia F40.01 and Cannabis use disorder, moderate, dependence F12.20 [facility] [id number] [place] [address] 03222- 4783 Aug, [facility] [facility] [id number] [place] [address] 58785- 7203 Aug, [facility] [facility] [id number] [place] [address] 91302- 4659 Aug, Bipolar disorder, unspecified F31.9 ; PTSD (post-traumatic stress disorder) F43.10 ; Panic disorder with agoraphobia F40.01 and Cannabis use disorder, moderate, dependence F12.20 [address] [address] [place] [address] 24938- 0556 Jul, [id number] [place] [address] 53482- 9858 Apr, GERD (gastroesophageal reflux disease) 530.81 and Internal hemorrhoids 455.0 [id number] [place] [address] 71755- 0120 Feb, Rectal bleeding 569.3 and Hemorrhoids 455.6 [id number] [place] [address] 54140- 0359 Jan, Sinusitis 473.9 and Otitis media 382.9 [id number] [place] [address] 01950- 7359 December, [facility] [place] [facility] [address] [id number] [place] [address]- 6329 14 Nov, 2014 [facility] [place] [facility] [address] [id number] [place] [address]- 7464 Nov, [facility] [place] [facility] [address] [id number] [place] [address]- 3525 Oct, 2014 [facility] [place] [facility] [address] [id number] [place] [address]- 0419 Oct, [facility] [place] [facility] [address] [id number] [place] [address]- 4581 Sep, [facility] [place] [facility] [address] [id number] [place] [address]- 7241 Sep, [facility] [place] [facility] [address] [id number] [place] [address]- 6209 Aug, [facility] [place] [facility] [address] [id number] [place] [address]- 0604 Aug, [facility] [place] [facility] [address] [id number] [place] [address]- 2553 Jul, [facility] [place] [facility] [address] [id number] [place] [address]- 7127 Jul, [facility] [place] [facility] [address] [id number] [place] [address]- 3020 Jul, [facility] [place] [facility] [address] [id number] [place] [address]- 9437 Jul, [facility] [place] [facility] [address] [id number] [place] [address]- 8336 Jul, [facility] [place] [facility] [address] [id number] [place] [address]- 3694 Jul, [facility] [place] [facility] [address] [id number] [place] 4553 Jul, [facility] [place] [facility] [address] [id number], [place] [address]- 7269 Jul, [facility] [place] [facility] [address] [id number] [place] [address]- 3901 Jun, [facility] [place] [facility] [address] [id number] [place] [address]- 0458 Jun, [facility] [place] [facility] [address] [id number] [place] [address]- 5642 Jun, [facility] [place] [facility] [address] [id number] [place] 5971 Jun, [facility] [place] [facility] [address] [id number] [place] [address]- 0672 May, [facility] [place] [facility] [address] [id number] [place] [address]- 8669 May, [facility] [place] [facility] [address] [id number] [place] [address]- 9074 May, [facility] [place] [facility] [address] [id number] [place] [address]- 2981 May, [facility] [place] [facility] [address] [id number] [place] [address]- 2910 Apr, [facility] [place] [facility] [address] [id number] [place] [address]- 6241 Apr, [facility] [place] [facility] [address] [id number], [place] [address]- 1041 Apr, [facility] [place] [facility] [address] [id number], [place] [address]- 6800 Apr, [facility] [place] [facility] [address] [id number] [place] [address]- 3616 Mar, [facility] [place] [facility] [address] [id number] [place] [address]- 3750 Mar, [facility] [place] [facility] [address] [id number] [place] [address]- 7691 Mar, [facility] [place] [facility] [address] [id number] [place] [address]- 0203 Mar, [facility] [place] [facility] [address] [id number] [place] [address]- 9575 December, [facility] [place] [facility] [address] [id number] [place] [address]- 5526 December, [facility] [place] [facility] [address] [id number] [place] [address]- 5434 Nov, [facility] [place] [facility] [address] [id number] [place] [address]- 4606 Nov, [facility] [place] [facility] [address] [id number] [place] [address]- 0683 Sep, [facility] [place] [facility] [address] [facility] [id number] [place] [address]- 2604 Sep, [facility] [place] [facility] [address] [facility] [id number] [place] [address]- 5956 Sep, [facility] [place] [facility] [address] [facility] [id number] [place] [address]- 9529 Sep, [facility] [place] [facility] [address] [facility] [id number] [place] [address]- 5742 Aug, [facility] [place] [facility] [address] [facility] [id number] [place] [address]- 4131 Jul, [facility] [place] [facility] [address] [facility] [id number] [place] [address]- 8768 Jul, [facility] [place] [facility] [address] [id number] [place] [address]- 7965 Jun, [facility] [place] [facility] [address] [id number] [place] [address]- 6004 Jun, [facility] [place] [facility] [address] [facility] [id number] [place] [address]- 1556 May, [facility] [place] [facility] [address] [facility] [id number] [place] [address]- 8953 18 May, 2013 [facility] [address] [id number] [place] [address]- 9753 07 May, 2013 [facility] [place] [facility] [address] [id number] [place] [address]- 2494 17 Apr, 2013 [facility] [place] [facility] [address] [id number] [place] [address]- 4191 16 Apr, 2013 [facility] [place] [facility] [address] [id number] [place] [address]- 0985 09 Apr, 2013 [facility] [place] [facility] [address] [id number] [place] [address]- 1479 09 Apr, 2013 [facility] [place] [facility] [address] [id number] [place] [address] Mar, [facility] [place] [facility] [address] [id number] [place] [address] Mar, [facility] [place] [facility] [address] [id number] [place] [address] December, [facility] [place] [facility] [address] [id number] [place] [address] Oct, [facility] [place] [facility] [address] [id number] [place] [address] Oct, [facility] [place] [facility] [address] [id number], [place] [address] Aug, [facility] [place] [facility] [address] [id number], [place] [address] Jul, [facility] [place] [facility] [address] [id number] [place] [address] 17 Jul, 2012 [facility] [place] [facility] [address] [id number] [place] [address] 13 Jul, 2012 [facility] [place] [facility] [address] [id number] [place] [address] Jul, [facility] [place] [facility] [address] [id number] [place] [address] 14 Jun, 2012 [facility] [address] [id number] [place] [address] 14 Jun, 2012 [facility] [place] [facility] [address] [id number] [place] [address] 14 Mar, 2012 [facility] [place] [facility] [address] [id number] [place] [address] 16 Feb, 2012 [facility] [place] [facility] [address] [id number] [place] [address] 16 Feb, 2012 [facility] [place] [facility] [address] [id number] [place] [address] December, [facility] [place] [facility] [address] [id number] [place] [address] 17 Nov, 2011 [facility] [address] [id number] [place] [address] 23 Oct, 2011 [facility] [place] [facility] [address] [id number] [place] [address] Oct, [facility] [place] [facility] [address] [id number] [place] [address] 09 Sep, 2011 [facility] [place] [facility] [address] [id number] [place] [address] Sep, [facility] [place] [facility] [address] [id number] [place] [address] Aug, [facility] [place] [facility] [address] [id number] [place] [address] Aug, [facility] [place] [facility] [address] [id number] [place] [address]- 5279 Jul, [facility] [place] [facility] [address] [id number] [place] [address] Jul, [facility] [place] [facility] [address] [id number] [place] [address] Jul, [facility] [address] [facility] [id number], [place] [address] Jun, [facility] [address] [facility] [id number], [place] [address] May, [facility] [address] [facility] [id number], [place] [address] Apr, [facility] [id number], [place] [address] Feb, [facility] [address] [facility] [id number], [place] [address] Sep, [facility] [address] [id number], [place] [address] Jul, [facility] [id number], [place] [address] Jul, [facility] [id number], [place] [address] Jul, [facility] [id number], [place] [address] Jul, [facility] [address] [id number], [place] [address] Jun, [facility] [address] [id number], [place] [address] Feb, [facility] [id number], [place] [address] Jan, [facility] [address] [id number], [place] [address] Feb, [facility] [address] [id number], [place] [address] Jul, IMMUNIZATIONS No Known Immunizations SOCIAL HISTORY Never Assessed REASON FOR VISIT Medication question PLAN OF CARE VITAL SIGNS MEDICATIONS Unknown Medications RESULTS No Results PROCEDURES No Known procedures INSTRUCTIONS MEDICATIONS ADMINISTERED No Known Medications MEDICAL (GENERAL) HISTORY Type Description Date Medical History heartburn Medical History PTSD Medical History bi-polar Medical History asthma Medical History anxiety Medical History depression Medical History pneumonia 09/15/16 Medical History PTSD (post-traumatic stress disorder) Medical History seizures Surgical History orthopedic surgery - right hand 1998 Surgical History fractured jaw Hospitalization History surgeries
--- OUTSIDE RECORDS SUMMARY | 2018-06-08 16:01 | XMS REPORT ---
Author Author PETRA GARZON [facility] Address [address] [place] [address] Care Team Providers Care Hand Singer Name Role Phone PETRA GARZON Unavailable PROBLEMS Type Condition ICD9-CM Code [id number] Code Onset Dates Condition Status SNOMED Code Problem Anxiety, generalized F41.1 Active 92936638 Problem Post-traumatic stress disorder F43.10 Active 10178367 Problem Cannabis dependence F12.20 Active 89662147 Problem Seizures R56.9 Active 88499599 Problem Other chronic pain G89.29 Active 05966720 Problem Adjustment disorder with mixed anxiety and depressed mood F43.23 Active 94034634 Problem Chronic post-traumatic stress disorder (PTSD) F43.12 Active 542574381 Problem Adjustment disorder with depressed mood F43.21 Active 68340221 Problem Adjustment disorder with anxious mood F43.22 Active 40803922 Problem Bipolar disorder, unspecified F31.9 Active 13061312 Problem Gastroesophageal reflux disease without esophagitis K21.9 Active 864619068 Problem Cigarette nicotine dependence with other nicotine-induced disorder F17.218 Active 56994554 Problem Panic disorder with agoraphobia F40.01 Active 77633299 Problem Moderate persistent asthma without complication J45.40 Active 566484246 Problem Cannabis use disorder, moderate, dependence F12.20 Active 69629510 Problem Obstructive sleep apnea syndrome G47.33 Active 96835868 ALLERGIES No Information ENCOUNTERS Encounter Location Date Diagnosis [facility] [address] [facility] [id number] [address] Aug, [facility] [id number] [address] May, [facility] [address] [id number] [address] 7975 May, [facility] [address] [id number], [place] [address] 2665 May, [facility] [id number] [place] [address] 92474- 8050 May, [facility] [id number] [place] [address] 20421- 8084 May, Seizures R56.9 [facility] [id number] [place] [address] 76626- 0300 May, [facility] [id number] [place] [address] 93456- 5445 Apr, [facility] [id number] [place] [address] 83793- 7202 Apr, [facility] [id number] [place] [address] 63504- 9293 Apr, [facility] [id number] [place] [address] 02686- 4879 Apr, [facility] [id number] [place] [address] 85994- 2970 Apr, Bipolar disorder, unspecified F31.9 ; Panic disorder with agoraphobia F40.01 and Cannabis use disorder, moderate, dependence F12.20 [facility] [id number] [place] [address] 07182- 0968 Mar, [facility] [id number] [place] [address] 95081- 6456 Mar, [facility] [id number] [place] [address] 37714- 0909 Jan, Low back pain M54.5 ; Moderate persistent asthma without complication J45.40 and Other chronic pain G89.29 [facility] [id number] [place] [address] 61372- 4859 Jan, Moderate persistent asthma without complication J45.40 ; Low back pain M54.5 ; Other chronic pain G89.29 ; Gastroesophageal reflux disease without esophagitis K21.9 and Cigarette nicotine dependence with other nicotine-induced disorder F17.218 [facility] [id number] [place] [address] 01480- 2004 December, Bipolar disorder, unspecified F31.9 ; Panic disorder with agoraphobia F40.01 ; Cannabis use disorder, moderate, dependence F12.20 and Chronic post-traumatic stress disorder (PTSD) F43.12 [facility] [id number] [place] [address] 164507- 9678 December, [facility] [id number] [place] [address] 52716- 7381 December, [facility] [id number] [place] [address] 70654- 5592 Nov, [facility] [id number] [place] [address] 28876- 3628 Oct, Bipolar disorder, unspecified F31.9 ; Chronic post- traumatic stress disorder (PTSD) F43.12 ; Panic disorder with agoraphobia F40.01 and Cannabis use disorder, moderate, dependence F12.20 [facility] [id number] [place] [address] 32870- 2964 Sep, [facility] [id number] [place] [address] 1577 Sep, [facility] [id number] [place] [address] 57483- 8004 Aug, [facility] [id number] [place] [address] 576561- 6127 Aug, Cannabis use disorder, moderate, dependence F12.20 ; Panic disorder with agoraphobia F40.01 and Bipolar affective disorder, currently depressed, moderate F31.32 [facility] [place] [id number] [place] [address] 1594 May, Diarrhea of presumed infectious origin A09 and Nausea and vomiting, intractability of vomiting not specified, unspecified vomiting type R11.2 [place] [place] [id number] [place] [address] 71799- 1694 Apr, [facility] [id number] [place] [address] 82737- 9722 Mar, Nausea R11.0 and Gastroenteritis K52.9 [facility] [id number] [place] [address] 43067- 9829 Mar, Gastroesophageal reflux disease without esophagitis K21.9 [facility] [id number] [place] [address] 01148- 2930 Mar, Gastroesophageal reflux disease without esophagitis K21.9 [place] [address] 00589- 9597 Mar, [facility] [id number] [place] [address] 95630- 8908 Mar, [facility] [id number] [place] [address] 69787- 7581 Mar, [facility] [id number] [place] [address] 31878- 6682 Feb, Acute pain of right shoulder M25.511 and Muscle spasm M62.838 [facility] [id number] [place] [address] 32565- 6927 Feb, Acute labyrinthitis, unspecified laterality H83.09 [facility] [facility] [id number] [place] [address] 43429- 0639 December, [facility] [id number] [place] [address] 56896- 9323 December, [place] [id number] [place] [address] 04927- 0554 December, Cannabis use disorder, moderate, dependence F12.20 ; Anxiety , generalized F41.1 ; Adjustment disorder with mixed anxiety and depressed mood F43.23 and Chronic post-traumatic stress disorder (PTSD) F43.12 [place] [id number] [place] [address] 76763- 7070 December, [place] [address], [place] [address]- 7012 December, [place] [id number] [place] [address] 03127- 3952 Nov, Acute nasopharyngitis J00 [place] [id number] [place] [address] 87532- 4677 Nov, Cannabis use disorder, moderate, dependence F12.20 ; Anxiety , generalized F41.1 ; Adjustment disorder with mixed anxiety and depressed mood F43.23 and Chronic post-traumatic stress disorder (PTSD) F43.12 [place] [id number] [place] [address] 77747- 1882 Nov, Cannabis use disorder, moderate, dependence F12.20 ; Anxiety , generalized F41.1 ; Adjustment disorder with mixed anxiety and depressed mood F43.23 and Chronic post-traumatic stress disorder (PTSD) F43.12 [place] [id number] [place] [address] 93933- 3485 Oct, Diarrhea, unspecified R19.7 ; Vomiting, unspecified R11.10 and Viral gastroenteritis A08.4 [place] [id number] [place] [address] 24459- 1650 Oct, Bipolar disorder, unspecified F31.9 ; Panic disorder with agoraphobia F40.01 ; Cannabis use disorder, moderate, dependence F12.20 ; Cigarette nicotine dependence with other nicotine-induced disorder F17.218 ; Anxiety, generalized F41.1 ; Post-traumatic stress disorder F43.10 and Adjustment disorder with mixed anxiety and depressed mood F43.23 [place] [address] [place] [address] 41990- 4495 Oct, Bipolar disorder, unspecified F31.9 ; Chronic post- traumatic stress disorder (PTSD) F43.12 ; Panic disorder with agoraphobia F40.01 and Cannabis use disorder, moderate, dependence F12.20 [place] [id number] [place] [address] 03085- 3462 Oct, Bipolar disorder, unspecified F31.9 ; Panic disorder with agoraphobia F40.01 ; Cannabis use disorder, moderate, dependence F12.20 ; Cigarette nicotine dependence with other nicotine-induced disorder F17.218 ; Anxiety, generalized F41.1 ; Post-traumatic stress disorder F43.10 and Adjustment disorder with mixed anxiety and depressed mood F43.23 [place] [address] [place] [address] 59779- 9949 14 Oct, 2016 Viral gastroenteritis A08.4 [id number] [place] [address] 62249- 7517 09 Oct, 2016 Anxiety, generalized F41.1 ; Post-traumatic stress disorder F43.10 ; Adjustment disorder with depressed mood F43.21 and Adjustment disorder with anxious mood F43.22 [place] [id number] [place] [address] 67447- 9422 07 Oct, 2016 Panic disorder with agoraphobia F40.01 ; Cannabis use disorder, moderate, dependence F12.20 ; Bipolar disorder, unspecified F31.9 ; Cigarette nicotine dependence with other nicotine-induced disorder F17.218 ; Adjustment disorder with anxious mood F43.22 ; Anxiety, generalized F41.1 ; Post -traumatic stress disorder F43.10 and Cannabis dependence F12.20 [place] [id number] [place] [address] 09948- 1990 Oct, Bipolar disorder, unspecified F31.9 and Chronic post- traumatic stress disorder (PTSD) F43.12 [place] [id number] [place] [address] 35780- 7201 Oct, Bipolar disorder, unspecified F31.9 and Chronic post- traumatic stress disorder (PTSD) F43.12 [id number] [place] [address] 49230- 3597 Sep, Bipolar disorder, unspecified F31.9 ; Panic disorder with agoraphobia F40.01 ; PTSD (post-traumatic stress disorder) F43.10 ; Cannabis use disorder, moderate, dependence F12.20 ; Cannabis dependence F12.20 and Anxiety, generalized F41.1 [place] [id number] [place] [address] 66301- 2892 Sep, Cannabis use disorder, moderate, dependence F12.20 ; Anxiety , generalized F41.1 and Adjustment disorder with mixed anxiety and depressed mood F43.23 [place] [id number] [place] [address] 97885- 9838 15 Sep, 2016 Bipolar disorder, unspecified F31.9 ; Panic disorder with agoraphobia F40.01 ; PTSD (post-traumatic stress disorder) F43.10 ; Cannabis use disorder, moderate, dependence F12.20 ; Cannabis dependence F12.20 and Anxiety, generalized F41.1 [place] [id number] [place] [address] 14578- 0725 10 Sep, 2016 Bipolar disorder, unspecified F31.9 ; Panic disorder with agoraphobia F40.01 ; PTSD (post-traumatic stress disorder) F43.10 ; Cannabis use disorder, moderate, dependence F12.20 ; Cannabis dependence F12.20 and Anxiety, generalized F41.1 [place] [id number] [place] [address] 60098- 5407 Sep, Bipolar disorder, unspecified F31.9 ; Post-traumatic stress disorder F43.10 and Cannabis dependence F12.20 [place] [place] [address] [place] [address] Sep, [place] [id number] [place] [address] 79629- 0650 Sep, Suicidal behavior without attempted self-injury R46.89 [place] [id number] [place] [address] 57699- 5389 Sep, [place] [address] 88716- 8060 07 Sep, 2016 Cannabis use disorder, moderate, dependence F12.20 ; Panic disorder with agoraphobia F40.01 ; Bipolar disorder, unspecified F31.9 and Anxiety, generalized F41.1 [place] [id number] [place] [address] 92571- 9844 Sep, Bipolar disorder, unspecified F31.9 ; PTSD (post-traumatic stress disorder) F43.10 ; Panic disorder with agoraphobia F40.01 and Cannabis use disorder, moderate, dependence F12.20 [place] [address] [place] [address] 87876- 4001 Sep, [place] [id number] [place] [address] 59047- 8990 Sep, PTSD (post-traumatic stress disorder) F43.10 ; Cannabis use disorder, moderate, dependence F12.20 and Suicidal risk R45.89 [place] [id number] [place] [address] 62610- 8011 Sep, [place] [id number] [place] [address] 03496- 0252 Jul, Bipolar disorder, unspecified F31.9 ; PTSD (post-traumatic stress disorder) F43.10 and Panic disorder with agoraphobia F40.01 [place] [id number] [place] [address] 68591- 5987 Jul, Obstructive sleep apnea syndrome G47.33 ; Moderate persistent asthma without complication J45.40 and Cigarette nicotine dependence with other nicotine-induced disorder F17.218 [place] [id number] [place] [address] 86092- 8739 Jul, [facility] [id number] [place] [address] 54039- 0773 Jul, [facility] [address] [place] [address] 36474- 7664 May, [facility] [id number] [place] [address] 48837- 0273 May, [facility] [id number] [place] [address] 70006- 3714 May, [facility] [id number] [place] [address] 2546 Apr, [place] [address], [place] [address]- 7288 Apr, Bipolar disorder, unspecified F31.9 ; PTSD (post-traumatic stress disorder) F43.10 ; Panic disorder with agoraphobia F40.01 and Cannabis use disorder, moderate, dependence F12.20 [place] [id number] [place] [address] 26694- 0258 Mar, Uncomplicated asthma, unspecified asthma severity J45.909 [place] [id number] [place] [address] 77598- 8117 Mar, [place] [id number] [place] [address] 38257- 6358 Mar, Moderate persistent asthma without complication J45.40 ; Gastroesophageal reflux disease without esophagitis K21.9 and Cigarette nicotine dependence with other nicotine-induced disorder F17.218 [place] [id number] [place] [address] 08638- 2207 Feb, [place] [id number] [place] [address] 88024- 7602 Jan, Bipolar disorder, unspecified F31.9 ; PTSD (post-traumatic stress disorder) F43.10 ; Panic disorder with agoraphobia F40.01 and Cannabis use disorder, moderate, dependence F12.20 [place] [address] [place] [address] 06286- 4675 December, [place] [id number] [place] [address] 78846- 2371 Nov, [place] [id number] [place] [address] 33503- 8785 Nov, Bipolar disorder, unspecified F31.9 ; PTSD (post-traumatic stress disorder) F43.10 ; Panic disorder with agoraphobia F40.01 and Cannabis use disorder, moderate, dependence F12.20 [place] [id number] [place] [address] 82988- 4462 Oct, [place] [id number] [place] [address] 96707- 1130 Oct, [place] [id number] [place] [address] 419407- 6192 Sep, [place] [id number] [place] [address] 51540- 9210 Sep, Bipolar disorder, unspecified F31.9 ; PTSD (post-traumatic stress disorder) F43.10 ; Panic disorder with agoraphobia F40.01 and Cannabis use disorder, moderate, dependence F12.20 [place] [id number] [place] [address] 44376- 4068 Aug, [place] [id number] [place] [address] 47593- 1539 Aug, [place] [id number] [place] [address] 26175- 3940 Aug, Bipolar disorder, unspecified F31.9 ; PTSD (post-traumatic stress disorder) F43.10 ; Panic disorder with agoraphobia F40.01 and Cannabis use disorder, moderate, dependence F12.20 [place] [address] [place] [address] 92399- 1122 Jul, [id number] [place] [address] 58397- 4622 Apr, GERD (gastroesophageal reflux disease) 530.81 and Internal hemorrhoids 455.0 [place] [id number] [place] [address] 00650- 4090 Feb, Rectal bleeding 569.3 and Hemorrhoids 455.6 [place] [id number] [place] [address] 65896- 4297 Jan, Sinusitis 473.9 and Otitis media 382.9 [place] [id number] [place] [address] 84718- 3313 December, [facility] [place] [facility] [address] [id number] [place] [address]- 6105 14 Nov, 2014 [facility] [place] [facility] [address] [id number] [place] [address]- 6630 Nov, [facility] [place] [facility] [address] [id number] [place] [address]- 0767 Oct, 2014 [facility] [place] [facility] [address] [id number] [place] [address]- 4439 Oct, [facility] [place] [facility] [address] [id number] [place] [address]- 2201 Sep, [facility] [place] [facility] [address] [id number] [place] [address]- 8641 Sep, [facility] [place] [facility] [address] [id number] [place] [address]- 7075 Aug, [facility] [place] [facility] [address] [id number] [place] [address]- 8011 Aug, [facility] [place] [facility] [address] [id number] [place] [address]- 0276 Jul, [facility] [place] [facility] [address] [id number] [place] [address]- 8317 Jul, [facility] [place] [facility] [address] [id number] [place] [address]- 5748 Jul, [facility] [place] [facility] [address] [id number] [place] [address]- 0587 Jul, [facility] [place] [facility] [address] [id number] [place] [address]- 4328 Jul, [facility] [place] [facility] [address] [id number] [place] [address]- 1169 Jul, [facility] [place] [facility] [address] [id number] [place] 4361 Jul, [facility] [place] [facility] [address] [id number], [place] [address]- 2921 Jul, [facility] [place] [facility] [address] [id number] [place] [address]- 9152 Jun, [facility] [place] [facility] [address] [id number] [place] [address]- 2293 Jun, [facility] [place] [facility] [address] [id number] [place] [address]- 1399 Jun, [facility] [place] [facility] [address] [id number] [place] 7750 Jun, [facility] [place] [facility] [address] [id number] [place] [address]- 3690 May, [facility] [place] [facility] [address] [id number] [place] [address]- 2887 May, [facility] [place] [facility] [address] [id number] [place] [address]- 2873 May, [facility] [place] [facility] [address] [id number] [place] [address]- 7636 May, [facility] [place] [facility] [address] [id number] [place] [address]- 9666 Apr, [facility] [place] [facility] [address] [id number] [place] [address]- 2802 Apr, [facility] [place] [facility] [address] [id number], [place] [address]- 2153 Apr, [facility] [place] [facility] [address] [id number], [place] [address]- 3303 Apr, [facility] [place] [facility] [address] [id number] [place] [address]- 4366 Mar, [facility] [place] [facility] [address] [id number] [place] [address]- 2860 Mar, [facility] [place] [facility] [address] [id number] [place] [address]- 1170 Mar, [facility] [place] [facility] [address] [id number] [place] [address]- 3990 Mar, [facility] [place] [facility] [address] [id number] [place] [address]- 3661 December, [facility] [place] [facility] [address] [id number] [place] [address]- 0796 December, [facility] [place] [facility] [address] [id number] [place] [address]- 2152 Nov, [facility] [place] [facility] [address] [id number] [place] [address]- 3847 Nov, [facility] [place] [facility] [address] [id number] [place] [address]- 8733 Sep, [facility] [place] [facility] [address] [facility] [id number] [place] [address]- 2040 Sep, [facility] [place] [facility] [address] [facility] [id number] [place] [address]- 3598 Sep, [facility] [place] [facility] [address] [facility] [id number] [place] [address]- 9453 Sep, [facility] [place] [facility] [address] [facility] [id number] [place] [address]- 2270 Aug, [facility] [place] [facility] [address] [facility] [id number] [place] [address]- 1359 Jul, [facility] [place] [facility] [address] [facility] [id number] [place] [address]- 8883 Jul, [facility] [place] [facility] [address] [id number] [place] [address]- 1452 Jun, [facility] [place] [facility] [address] [id number] [place] [address]- 7687 Jun, [facility] [place] [facility] [address] [facility] [id number] [place] [address]- 1236 May, [facility] [place] [facility] [address] [facility] [id number] [place] [address]- 2531 18 May, 2013 [facility] [address] [id number] [place] [address]- 6353 07 May, 2013 [facility] [place] [facility] [address] [id number] [place] [address]- 1566 17 Apr, 2013 [facility] [place] [facility] [address] [id number] [place] [address]- 7755 16 Apr, 2013 [facility] [place] [facility] [address] [id number] [place] [address] 09 Apr, 2013 [facility] [place] [facility] [address] [id number] [place] [address] 09 Apr, 2013 [facility] [place] [facility] [address] [id number] [place] [address] Mar, [facility] [place] [facility] [address] [id number] [place] [address] Mar, [facility] [place] [facility] [address] [id number] [place] [address] December, [facility] [place] [facility] [address] [id number] [place] [address] Oct, [facility] [place] [facility] [address] [id number] [place] [address] Oct, [facility] [place] [facility] [address] [id number], [place] [address] Aug, [facility] [place] [facility] [address] [id number], [place] [address] Jul, [facility] [place] [facility] [address] [id number] [place] [address] 17 Jul, 2012 [facility] [place] [facility] [address] [id number] [place] [address] 13 Jul, 2012 [facility] [place] [facility] [address] [id number] [place] [address] Jul, [facility] [place] [facility] [address] [id number] [place] [address] 14 Jun, 2012 [facility] [address] [id number] [place] [address] 14 Jun, 2012 [facility] [place] [facility] [address] [id number] [place] [address] 14 Mar, 2012 [facility] [place] [facility] [address] [id number] [place] [address] 16 Feb, 2012 [facility] [place] [facility] [address] [id number] [place] [address] 16 Feb, 2012 [facility] [place] [facility] [address] [id number] [place] [address] December, [facility] [place] [facility] [address] [id number] [place] [address] 17 Nov, 2011 [facility] [address] [id number] [place] [address]- [address] 23 Oct, 2011 [facility] [place] [facility] [address] [id number] [place] [address] Oct, [facility] [place] [facility] [address] [id number] [place] [address] 09 Sep, 2011 [facility] [place] [facility] [address] [id number] [place] [address] Sep, [facility] [place] [facility] [address] [id number] [place] [address] Aug, [facility] [place] [facility] [address] [id number] [place] [address] Aug, [facility] [place] [facility] [address] [id number] [place] [address] Jul, [facility] [place] [facility] [address] [id number] [place] [address] Jul, [facility] [place] [facility] [address] [id number] [place] [address] Jul, [facility] [address] [facility] [id number], [place] [address] Jun, [facility] [address] [facility] [id number], [place] [address] May, [facility] [address] [facility] [id number], [place] [address] Apr, [facility] [address] [facility] [id number], [place] [address] Feb, [facility] [address] [facility] [id number], [place] [address] Sep, [facility] [address] [facility] [id number], [place] [address] Jul, [facility] [address] [facility] [id number], [place] [address] Jul, [facility] [address] [facility] [id number], [place] [address] Jul, [facility] [address] [facility] [id number], [place] [address] Jul, [facility] [address] [id number], [place] [address] Jun, [facility] [address] [id number], [place] [address] Feb, [facility] [address] [id number], [place] [address] Jan, [facility] [address] [facility] [id number], [place] [address] Feb, [facility] [address] [id number], [place] [address] Jul, IMMUNIZATIONS No Known Immunizations SOCIAL HISTORY Never Assessed REASON FOR VISIT Refill request PLAN OF CARE VITAL SIGNS MEDICATIONS Medication Instructions Dosage Frequency Start Date End Date Duration Status Ibuprofen 800 MG Orally 3 times a day 1 tablet with food or milk as needed 8h 90 days Active RESULTS No Results PROCEDURES [...]
--- OUTSIDE RECORDS SUMMARY | 2018-06-08 16:01 | XMS REPORT ---
Author Author JAGRUTI KORY [facility] Address [address] [place] [address] Care Team Providers Care Cement Loader Name Role Phone KORY CHAND Unavailable PROBLEMS Type Condition ICD9-CM Code UOG98-YY Code Onset Dates Condition Status SNOMED Code Problem Anxiety, generalized F41.1 Active 01501084 Problem Post-traumatic stress disorder F43.10 Active 64600926 Problem Cannabis dependence F12.20 Active 67438700 Problem Seizures R56.9 Active 98387653 Problem Other chronic pain G89.29 Active 58379789 Problem Adjustment disorder with mixed anxiety and depressed mood F43.23 Active 77966978 Problem Chronic post-traumatic stress disorder (PTSD) F43.12 Active 932971400 Problem Adjustment disorder with depressed mood F43.21 Active 76116735 Problem Adjustment disorder with anxious mood F43.22 Active 19519710 Problem Bipolar disorder, unspecified F31.9 Active 70464136 Problem Gastroesophageal reflux disease without esophagitis K21.9 Active 504413853 Problem Cigarette nicotine dependence with other nicotine-induced disorder F17.218 Active 75605184 Problem Panic disorder with agoraphobia F40.01 Active 77391540 Problem Moderate persistent asthma without complication J45.40 Active 130183953 Problem Cannabis use disorder, moderate, dependence F12.20 Active 69593871 Problem Obstructive sleep apnea syndrome G47.33 Active 38675764 ALLERGIES No Information ENCOUNTERS Encounter Location Date Diagnosis [facility] [address] [facility] [id number] [address] Aug, [facility] [address] [address] May, [facility] [address] [id number] [address] May, [facility] [address] [id number] [address] May, [facility] [id number] [place] [address] 05687- 7077 May, [facility] [id number] [place] [address] 17462- 9491 May, Se[address]ures R56.9 [facility] [id number] [place] [address] 00517- 9982 May, [facility] [id number] [place] [address] 60264- 8051 Apr, [facility] [id number] [place] [address] 20719- 8397 Apr, [facility] [id number] [place] [address] 78565- 6825 Apr, [facility] [id number] [place] [address] 33490- 4350 Apr, [facility] [id number] [place] [address] 84369- 1874 Apr, Bipolar disorder, unspecified F31.9 ; Panic disorder with agoraphobia F40.01 and Cannabis use disorder, moderate, dependence F12.20 [facility] [id number] [place] [address] 52504- 4437 Mar, [facility] [id number] [place] [address] 70695- 2955 Mar, [facility] [id number] [place] [address] 91102- 5665 Jan, Low back pain M54.5 ; Moderate persistent asthma without complication J45.40 and Other chronic pain G89.29 [facility] [id number] [place] [address] 40243- 0887 Jan, Moderate persistent asthma without complication J45.40 ; Low back pain M54.5 ; Other chronic pain G89.29 ; Gastroesophageal reflux disease without esophagitis K21.9 and Cigarette nicotine dependence with other nicotine-induced disorder F17.218 [facility] [address] [place] [address] 61749- 8816 December, Bipolar disorder, unspecified F31.9 ; Panic disorder with agoraphobia F40.01 ; Cannabis use disorder, moderate, dependence F12.20 and Chronic post-traumatic stress disorder (PTSD) F43.12 [facility] [id number] [place] [address] 410788- 3899 December, [facility] [id number] [place] [address] 23598- 6959 December, [facility] [id number] [place] [address] 73049- 7139 Nov, [facility] [id number] [place] [address] 31498- 4601 Oct, Bipolar disorder, unspecified F31.9 ; Chronic post- traumatic stress disorder (PTSD) F43.12 ; Panic disorder with agoraphobia F40.01 and Cannabis use disorder, moderate, dependence F12.20 [facility] [id number] [place] [address] 65644- 0473 Sep, [facility] [id number] [place] [address] 7867 Sep, [facility] [id number] [place] [address] 59894- 3798 Aug, [facility] [id number] [place] [address] 999782- 1989 Aug, Cannabis use disorder, moderate, dependence F12.20 ; Panic disorder with agoraphobia F40.01 and Bipolar affective disorder, currently depressed, moderate F31.32 [place] [id number] [place] [address] May, Diarrhea of presumed infectious origin A09 and Nausea and vomiting, intractability of vomiting not specified, unspecified vomiting type R11.2 [facility] [id number] [place] [address] 67652- 3045 Apr, [facility] [id number] [place] [address] 59677- 5486 Mar, Nausea R11.0 and Gastroenteritis K52.9 [facility] [id number] [place] [address] 10068- 0845 Mar, Gastroesophageal reflux disease without esophagitis K21.9 [facility] [id number] [place] [address] 51471- 9912 Mar, Gastroesophageal reflux disease without esophagitis K21.9 [place] [address] [address]602- 2020 Mar, [facility] [id number] [place] [address] 15698- 5215 Mar, [facility] [id number] [place] [address] 76257- 6220 Mar, [facility] [id number] [place] [address] 30980- 4008 Feb, Acute pain of right shoulder M25.511 and Muscle spasm M62.838 [facility] [id number] [place] [address] 81147- 6695 Feb, Acute labyrinthitis, unspecified laterality H83.09 [facility] [id number] [place] [address] 55564- 1822 December, [facility] [id number] [place] [address] 92903- 4816 December, [facility] [id number] [place] [address] 75894- 0540 December, Cannabis use disorder, moderate, dependence F12.20 ; Anxiety , generalized F41.1 ; Adjustment disorder with mixed anxiety and depressed mood F43.23 and Chronic post-traumatic stress disorder (PTSD) F43.12 [facility] [id number] [place] [address] 16037- 9645 December, [facility] [address], [place] [address] 0688 December, [facility] [id number] [place] [address] 91196- 5524 Nov, Acute nasopharyngitis J00 [address] [id number] [place] [address] 28319- 6383 Nov, Cannabis use disorder, moderate, dependence F12.20 ; Anxiety , generalized F41.1 ; Adjustment disorder with mixed anxiety and depressed mood F43.23 and Chronic post-traumatic stress disorder (PTSD) F43.12 [facility] [id number] [place] [address] 76164- 4869 Nov, Cannabis use disorder, moderate, dependence F12.20 ; Anxiety , generalized F41.1 ; Adjustment disorder with mixed anxiety and depressed mood F43.23 and Chronic post-traumatic stress disorder (PTSD) F43.12 [facility] [id number] [place] [address] 10559- 4746 Oct, Diarrhea, unspecified R19.7 ; Vomiting, unspecified R11.10 and Viral gastroenteritis A08.4 [facility] [id number] [place] [address] 43559- 5945 Oct, Bipolar disorder, unspecified F31.9 ; Panic disorder with agoraphobia F40.01 ; Cannabis use disorder, moderate, dependence F12.20 ; Cigarette nicotine dependence with other nicotine-induced disorder F17.218 ; Anxiety, generalized F41.1 ; Post-traumatic stress disorder F43.10 and Adjustment disorder with mixed anxiety and depressed mood F43.23 [place] [address] [place] [address] 07688- 1676 Oct, Bipolar disorder, unspecified F31.9 ; Chronic post- traumatic stress disorder (PTSD) F43.12 ; Panic disorder with agoraphobia F40.01 and Cannabis use disorder, moderate, dependence F12.20 [facility] [id number] [place] [address] 57624- 2873 Oct, Bipolar disorder, unspecified F31.9 ; Panic disorder with agoraphobia F40.01 ; Cannabis use disorder, moderate, dependence F12.20 ; Cigarette nicotine dependence with other nicotine-induced disorder F17.218 ; Anxiety, generalized F41.1 ; Post-traumatic stress disorder F43.10 and Adjustment disorder with mixed anxiety and depressed mood F43.23 [place] [address] [place] [address] 76977- 5313 14 Oct, 2016 Viral gastroenteritis A08.4 [id number] [place] [address] 27385- 3866 09 Oct, 2016 Anxiety, generalized F41.1 ; Post-traumatic stress disorder F43.10 ; Adjustment disorder with depressed mood F43.21 and Adjustment disorder with anxious mood F43.22 [facility] [id number] [place] [address] 35291- 2953 07 Oct, 2016 Panic disorder with agoraphobia F40.01 ; Cannabis use disorder, moderate, dependence F12.20 ; Bipolar disorder, unspecified F31.9 ; Cigarette nicotine dependence with other nicotine-induced disorder F17.218 ; Adjustment disorder with anxious mood F43.22 ; Anxiety, generalized F41.1 ; Post -traumatic stress disorder F43.10 and Cannabis dependence F12.20 [place] [address] [place] [address] 99615- 8874 Oct, Bipolar disorder, unspecified F31.9 and Chronic post- traumatic stress disorder (PTSD) F43.12 [place] [address] [place] [address] 89290- 4097 Oct, Bipolar disorder, unspecified F31.9 and Chronic post- traumatic stress disorder (PTSD) F43.12 [id number] [place] [address] 22807- 8972 Sep, Bipolar disorder, unspecified F31.9 ; Panic disorder with agoraphobia F40.01 ; PTSD (post-traumatic stress disorder) F43.10 ; Cannabis use disorder, moderate, dependence F12.20 ; Cannabis dependence F12.20 and Anxiety, generalized F41.1 [place] [id number] [place] [address] 48375- 9316 Sep, Cannabis use disorder, moderate, dependence F12.20 ; Anxiety , generalized F41.1 and Adjustment disorder with mixed anxiety and depressed mood F43.23 [place] [id number] [place] [address] 17770- 9455 15 Sep, 2016 Bipolar disorder, unspecified F31.9 ; Panic disorder with agoraphobia F40.01 ; PTSD (post-traumatic stress disorder) F43.10 ; Cannabis use disorder, moderate, dependence F12.20 ; Cannabis dependence F12.20 and Anxiety, generalized F41.1 [facility] [id number] [place] [address] 88873- 1176 10 Sep, 2016 Bipolar disorder, unspecified F31.9 ; Panic disorder with agoraphobia F40.01 ; PTSD (post-traumatic stress disorder) F43.10 ; Cannabis use disorder, moderate, dependence F12.20 ; Cannabis dependence F12.20 and Anxiety, generalized F41.1 [place] [id number] [place] [address] 87844- 3999 Sep, Bipolar disorder, unspecified F31.9 ; Post-traumatic stress disorder F43.10 and Cannabis dependence F12.20 [address] [place] [address] Sep, [facility] [id number] [place] [address] 70605- 3749 Sep, Suicidal behavior without attempted self-injury R46.89 [place] [id number] [place] [address] 54935- 4849 Sep, [place] [address] 89202- 0861 07 Sep, 2016 Cannabis use disorder, moderate, dependence F12.20 ; Panic disorder with agoraphobia F40.01 ; Bipolar disorder, unspecified F31.9 and Anxiety, generalized F41.1 [place] [id number] [place] [address] 39789- 0715 Sep, Bipolar disorder, unspecified F31.9 ; PTSD (post-traumatic stress disorder) F43.10 ; Panic disorder with agoraphobia F40.01 and Cannabis use disorder, moderate, dependence F12.20 [address] [place] [address] 49860- 3785 Sep, [facility] [facility] [id number] [place] [address] 35715- 4775 Sep, PTSD (post-traumatic stress disorder) F43.10 ; Cannabis use disorder, moderate, dependence F12.20 and Suicidal risk R45.89 [place] [id number] [place] [address] 76175- 8684 Sep, [place] [id number] [place] [address] 28274- 3270 Jul, Bipolar disorder, unspecified F31.9 ; PTSD (post-traumatic stress disorder) F43.10 and Panic disorder with agoraphobia F40.01 [place] [id number] [place] [address] 93595- 7568 Jul, Obstructive sleep apnea syndrome G47.33 ; Moderate persistent asthma without complication J45.40 and Cigarette nicotine dependence with other nicotine-induced disorder F17.218 [place] [id number] [place] [address] 22669- 5562 Jul, [facility] [id number] [place] [address] 69751- 0891 Jul, [facility] [address] [place] [address] 61532- 1114 May, [facility] [id number] [place] [address] 50320- 1727 May, [facility] [id number] [place] [address] 22237- 8604 May, [facility] [id number] [place] [address]- 2546 Apr, [facility] [address], [place] [address]- 0211 Apr, Bipolar disorder, unspecified F31.9 ; PTSD (post-traumatic stress disorder) F43.10 ; Panic disorder with agoraphobia F40.01 and Cannabis use disorder, moderate, dependence F12.20 [place] [id number] [place] [address] 97907- 5250 Mar, Uncomplicated asthma, unspecified asthma severity J45.909 [place] [id number] [place] [address] 90195- 8938 Mar, [facility] [id number] [place] [address] 06893- 1488 Mar, Moderate persistent asthma without complication J45.40 ; Gastroesophageal reflux disease without esophagitis K21.9 and Cigarette nicotine dependence with other nicotine-induced disorder F17.218 [place] [id number] [place] [address] 85196- 9024 Feb, [facility] [id number] [place] [address] 40043- 9304 Jan, Bipolar disorder, unspecified F31.9 ; PTSD (post-traumatic stress disorder) F43.10 ; Panic disorder with agoraphobia F40.01 and Cannabis use disorder, moderate, dependence F12.20 [place] [address] [place] [address] 38866- 0212 December, [facility] [place] [id number] [place] [address] 12297- 1136 Nov, [facility] [place] [id number] [place] [address] 84369- 2434 Nov, Bipolar disorder, unspecified F31.9 ; PTSD (post-traumatic stress disorder) F43.10 ; Panic disorder with agoraphobia F40.01 and Cannabis use disorder, moderate, dependence F12.20 [facility] [place] [id number] [place] [address] 27018- 7414 Oct, [facility] [id number] [place] [address] 53108- 2320 Oct, [facility] [id number] [place] [address] 125273- 7436 Sep, [facility] [id number] [place] [address] 71906- 4411 Sep, Bipolar disorder, unspecified F31.9 ; PTSD (post-traumatic stress disorder) F43.10 ; Panic disorder with agoraphobia F40.01 and Cannabis use disorder, moderate, dependence F12.20 [place] [id number] [place] [address] 05454- 1478 Aug, [facility] [id number] [place] [address] 72736- 3424 Aug, [facility] [id number] [place] [address] 50914- 2967 Aug, Bipolar disorder, unspecified F31.9 ; PTSD (post-traumatic stress disorder) F43.10 ; Panic disorder with agoraphobia F40.01 and Cannabis use disorder, moderate, dependence F12.20 [place] [address] [place] [address] 86543- 1875 Jul, [id number] [place] [address] 10647- 0450 Apr, GERD (gastroesophageal reflux disease) 530.81 and Internal hemorrhoids 455.0 [id number] [place] [address] 13799- 3920 Feb, Rectal bleeding 569.3 and Hemorrhoids 455.6 [id number] [place] [address] 14490- 0247 Jan, Sinusitis 473.9 and Otitis media 382.9 [id number] [place] [address] 60982- 9585 December, [facility] [place] [facility] [address] [id number] [place] [address]- 5060 14 Nov, 2014 [facility] [place] [facility] [address] [id number] [place] [address]- 3301 Nov, [facility] [place] [facility] [address] [id number] [place] [address]- 4554 Oct, 2014 [facility] [place] [facility] [address] [id number] [place] [address]- 0223 Oct, [facility] [place] [facility] [address] [id number] [place] [address]- 6836 Sep, [facility] [place] [facility] [address] [id number] [place] [address]- 0956 Sep, [facility] [place] [facility] [address] [id number] [place] [address]- 9654 Aug, [facility] [place] [facility] [address] [id number] [place] [address]- 2335 Aug, [facility] [place] [facility] [address] [id number] [place] [address]- 9801 Jul, [facility] [place] [facility] [address] [id number] [place] [address]- 0530 Jul, [facility] [place] [facility] [address] [id number] [place] [address]- 4799 Jul, [facility] [place] [facility] [address] [id number] [place] [address]- 8317 Jul, [facility] [place] [facility] [address] [id number] [place] [address]- 9606 Jul, [facility] [place] [facility] [address] [id number] [place] [address]- 5038 Jul, [facility] [place] [facility] [address] [id number] [place] 5457 Jul, [facility] [place] [facility] [address] [id number], [place] [address]- 7224 Jul, [facility] [place] [facility] [address] [id number] [place] [address]- 1698 Jun, [facility] [place] [facility] [address] [id number] [place] [address]- 0496 Jun, [facility] [place] [facility] [address] [id number] [place] [address]- 0958 Jun, [facility] [place] [facility] [address] [id number] [place] 5877 Jun, [facility] [place] [facility] [address] [id number] [place] [address]- 0327 May, [facility] [place] [facility] [address] [id number] [place] [address]- 8621 May, [facility] [place] [facility] [address] [id number] [place] [address]- 6875 May, [facility] [place] [facility] [address] [id number] [place] [address]- 9497 May, [facility] [place] [facility] [address] [id number] [place] [address]- 9521 Apr, [facility] [place] [facility] [address] [id number] [place] [address]- 8515 Apr, [facility] [place] [facility] [address] [id number], [place] [address]- 4350 Apr, [facility] [place] [facility] [address] [id number], [place] [address]- 9170 Apr, [facility] [place] [facility] [address] [id number] [place] [address]- 1248 Mar, [facility] [place] [facility] [address] [id number] [place] [address]- 5282 Mar, [facility] [place] [facility] [address] [id number] [place] [address]- 7486 Mar, [facility] [place] [facility] [address] [id number] [place] [address]- 5217 Mar, [facility] [place] [facility] [address] [id number] [place] [address]- 1876 December, [facility] [place] [facility] [address] [id number] [place] [address]- 4206 December, [facility] [place] [facility] [address] [id number] [place] [address]- 8674 Nov, [facility] [place] [facility] [address] [id number] [place] [address]- 8887 Nov, [facility] [place] [facility] [address] [id number] [place] [address]- 6722 Sep, [facility] [place] [facility] [address] [facility] [id number] [place] [address]- 4995 Sep, [facility] [place] [facility] [address] [facility] [id number] [place] [address]- 6392 Sep, [facility] [place] [facility] [address] [facility] [id number] [place] [address]- 5500 Sep, [facility] [place] [facility] [address] [facility] [id number] [place] [address]- 7258 Aug, [facility] [place] [facility] [address] [facility] [id number] [place] [address]- 4110 Jul, [facility] [place] [facility] [address] [facility] [id number] [place] [address]- 0783 Jul, [facility] [place] [facility] [address] [id number] [place] [address]- 9343 Jun, [facility] [place] [facility] [address] [id number] [place] [address]- 9038 Jun, [facility] [place] [facility] [address] [facility] [id number] [place] [address]- 4856 May, [facility] [place] [facility] [address] [facility] [id number] [place] [address]- 4973 18 May, 2013 [facility] [address] [id number] [place] [address]- 8547 07 May, 2013 [facility] [place] [facility] [address] [id number] [place] [address]- 5168 17 Apr, 2013 [facility] [place] [facility] [address] [id number] [place] [address]- 1378 16 Apr, 2013 [facility] [place] [facility] [address] [id number] [place] [address]- 2318 09 Apr, 2013 [facility] [place] [facility] [address] [id number] [place] [address]- 6111 09 Apr, 2013 [facility] [place] [facility] [address] [id number] [place] [address]- 1136 Mar, [facility] [place] [facility] [address] [id number] [place] [address]- 1433 Mar, [facility] [place] [facility] [address] [id number] [place] [address]- 9308 December, [facility] [place] [facility] [address] [id number] [place] [address] Oct, [facility] [place] [facility] [address] [id number] [place] [address] Oct, [facility] [place] [facility] [address] [id number], [place] [address] Aug, [facility] [place] [facility] [address] [id number], [place] [address] Jul, [facility] [place] [facility] [address] [id number] [place] [address] 17 Jul, 2012 [facility] [place] [facility] [address] [id number] [place] [address] 13 Jul, 2012 [facility] [place] [facility] [address] [id number] [place] [address] Jul, [facility] [place] [facility] [address] [id number] [place] [address] 14 Jun, 2012 [facility] [address] [id number] [place] [address] 14 Jun, 2012 [facility] [place] [facility] [address] [id number] [place] [address] 14 Mar, 2012 [facility] [place] [facility] [address] [id number] [place] [address] 16 Feb, 2012 [facility] [place] [facility] [address] [id number] [place] [address] 16 Feb, 2012 [facility] [place] [facility] [address] [id number] [place] [address] December, [facility] [place] [facility] [address] [id number] [place] [address] 17 Nov, 2011 [facility] [address] [address] [id number] [place] [address] 23 Oct, 2011 [facility] [place] [facility] [address] [id number] [place] [address] Oct, [facility] [place] [facility] [address] [id number] [place] [address] 09 Sep, 2011 [facility] [place] [facility] [address] [id number] [place] [address] Sep, [facility] [place] [facility] [address] [id number] [place] [address] Aug, [facility] [place] [facility] [address] [id number] [place] [address] Aug, [facility] [place] [facility] [address] [id number] [place] [address] Jul, [facility] [place] [facility] [address] [id number] [place] [address] Jul, [facility] [place] [facility] [address] [id number] [place] [address] Jul, [facility] [address] [facility] [id number], [place] [address] Jun, [facility] [address] [facility] [id number] [address] May, [facility] [address] [facility] [id number], [place] [address] Apr, [facility] [address] [facility] [id number], [place] [address] Feb, [facility] [address] [facility] [id number], [place] [address] Sep, [facility] [address] [facility] [id number], [place] [address] Jul, [facility] [address] [id number], [place] [address] Jul, [facility] [address] [id number], [place] [address] Jul, [facility] [address] [id number], [place] [address] Jul, [facility] [address] [id number], [place] [address] Jun, [facility] [address] [id number], [place] [address] Feb, [facility] [address] [id number], [place] [address] Jan, [facility] [address] [facility] [id number], [place] [address] Feb, [facility] [address] [id number], [place] [address] Jul, IMMUNIZATIONS No Known Immunizations SOCIAL HISTORY Never Assessed REASON FOR VISIT Requests return call PLAN OF CARE VITAL SIGNS MEDICATIONS Medication Instructions Dosage Frequency Start Date End Date Duration Status Loxapine Succinate 10 mg Orally at bedtime 2 capsule May, 30 day(s) Active Metoprolol Tartrate 25 MG Orally Twice a day 1 tablet 12h 90 days Active Lexapro 10 mg Orally Once a day 1 tablet 24h 90 days Active Gabapentin 300 mg Orally 3 times a day for anxiety 1 capsule 90 Active RESULTS No Results PROCEDURES No Known [...]
--- OUTSIDE RECORDS SUMMARY | 2018-06-08 16:02 | XMS REPORT ---
Author Author PETRA GARZON [facility] Address [address] [place] [address] Care Team Providers Care Product Advisor Name Role Phone PETRA GARZON Unavailable PROBLEMS Type Condition ICD9-CM Code MHZ96-MM Code Onset Dates Condition Status SNOMED Code Problem Anxiety, generalized F41.1 Active 77539010 Problem Post-traumatic stress disorder F43.10 Active 84611351 Problem Cannabis dependence F12.20 Active 49982697 Problem Seizures R56.9 Active 44154020 Problem Other chronic pain G89.29 Active 14967323 Problem Adjustment disorder with mixed anxiety and depressed mood F43.23 Active 88082297 Problem Chronic post-traumatic stress disorder (PTSD) F43.12 Active 333156347 Problem Adjustment disorder with depressed mood F43.21 Active 76075612 Problem Adjustment disorder with anxious mood F43.22 Active 35116861 Problem Bipolar disorder, unspecified F31.9 Active 96559803 Problem Gastroesophageal reflux disease without esophagitis K21.9 Active 018379757 Problem Cigarette nicotine dependence with other nicotine-induced disorder F17.218 Active 91292694 Problem Panic disorder with agoraphobia F40.01 Active 05482992 Problem Moderate persistent asthma without complication J45.40 Active 840180547 Problem Cannabis use disorder, moderate, dependence F12.20 Active 87618354 Problem Obstructive sleep apnea syndrome G47.33 Active 57727561 ALLERGIES No Information ENCOUNTERS Encounter Location Date Diagnosis [facility] [address] [facility] [id number] [address] Aug, [facility] [address] [address] May, [facility] [id number] [address] 3597 May, [facility] [id number] [address] 5851 May, [facility] [id number] [place] [address] 41494- 9858 May, [facility] [id number] [place] [address] 17699- 0622 May, Seizures R56.9 [facility] [id number] [place] [address] 49540- 6047 May, [facility] [id number] [place] [address] 21234- 0968 Apr, [facility] [id number] [place] [address] 46101- 1518 Apr, [facility] [id number] [place] [address] 51442- 9499 Apr, [facility] [id number] [place] [address] 15999- 8134 Apr, [facility] [id number] [place] [address] 70086- 7763 Apr, Bipolar disorder, unspecified F31.9 ; Panic disorder with agoraphobia F40.01 and Cannabis use disorder, moderate, dependence F12.20 [facility] [id number] [place] [address] 69798- 1084 Mar, [facility] [id number] [place] [address] 14356- 3432 Mar, [facility] [id number] [place] [address] 54812- 6315 Jan, Low back pain M54.5 ; Moderate persistent asthma without complication J45.40 and Other chronic pain G89.29 [facility] [id number] [place] [address] 09923- 7478 Jan, Moderate persistent asthma without complication J45.40 ; Low back pain M54.5 ; Other chronic pain G89.29 ; Gastroesophageal reflux disease without esophagitis K21.9 and Cigarette nicotine dependence with other nicotine-induced disorder F17.218 [facility] [id number] [place] [address] 89338- 9314 December, Bipolar disorder, unspecified F31.9 ; Panic disorder with agoraphobia F40.01 ; Cannabis use disorder, moderate, dependence F12.20 and Chronic post-traumatic stress disorder (PTSD) F43.12 [address] [id number] [place] [address] 958397- 3890 December, [place] [id number] [place] [address] 66042- 1650 December, [place] [id number] [place] [address] 63107- 4149 Nov, [place] [facility] [id number] [place] [address] 54405- 7731 Oct, Bipolar disorder, unspecified F31.9 ; Chronic post- traumatic stress disorder (PTSD) F43.12 ; Panic disorder with agoraphobia F40.01 and Cannabis use disorder, moderate, dependence F12.20 [place] [id number] [place] [address] 07931- 0400 Sep, [place] [id number] [place] [address] 5603 Sep, [place] [facility] [id number] [place] [address] 09787- 7896 Aug, [place] [id number] [place] [address] 823018- 5053 Aug, Cannabis use disorder, moderate, dependence F12.20 ; Panic disorder with agoraphobia F40.01 and Bipolar affective disorder, currently depressed, moderate F31.32 [place] [id number] [place] [address]183 May, Diarrhea of presumed infectious origin A09 and Nausea and vomiting, intractability of vomiting not specified, unspecified vomiting type R11.2 [place] [id number] [place] [address] 06552- 8784 Apr, [place] [facility] [id number] [place] [address] 02745- 5017 Mar, Nausea R11.0 and Gastroenteritis K52.9 [place] [id number] [place] [address] 41972- 5384 Mar, Gastroesophageal reflux disease without esophagitis K21.9 [place] [id number] [place] [address] 93143- 3630 Mar, Gastroesophageal reflux disease without esophagitis K21.9 [place] [address] 05239- 6533 Mar, [place] [facility] [id number] [place] [address] 77308- 8619 Mar, [place] [facility] [id number] [place] [address] 51868- 2226 Mar, [place] [facility] [id number] [place] [address] 65224- 3334 Feb, Acute pain of right shoulder M25.511 and Muscle spasm M62.838 [place] [id number] [place] [address] 77181- 1011 Feb, Acute labyrinthitis, unspecified laterality H83.09 [place] [id number] [place] [address] 93787- 1508 December, [place] [facility] [id number] [place] [address] 32099- 2453 December, [place] [id number] [place] [address] 99445- 1455 December, Cannabis use disorder, moderate, dependence F12.20 ; Anxiety , generalized F41.1 ; Adjustment disorder with mixed anxiety and depressed mood F43.23 and Chronic post-traumatic stress disorder (PTSD) F43.12 [place] [id number] [place] [address] 42690- 7738 December, [place] [address] [address] 4901 December, [place] [id number] [place] [address] 64529- 3098 Nov, Acute nasopharyngitis J00 [place] [id number] [place] [address] 96451- 8812 Nov, Cannabis use disorder, moderate, dependence F12.20 ; Anxiety , generalized F41.1 ; Adjustment disorder with mixed anxiety and depressed mood F43.23 and Chronic post-traumatic stress disorder (PTSD) F43.12 [place] [id number] [place] [address] 24217- 5347 Nov, Cannabis use disorder, moderate, dependence F12.20 ; Anxiety , generalized F41.1 ; Adjustment disorder with mixed anxiety and depressed mood F43.23 and Chronic post-traumatic stress disorder (PTSD) F43.12 [place] [id number] [place] [address] 78237- 1973 Oct, Diarrhea, unspecified R19.7 ; Vomiting, unspecified R11.10 and Viral gastroenteritis A08.4 [place] [id number] [place] [address] 58866- 5500 Oct, Bipolar disorder, unspecified F31.9 ; Panic disorder with agoraphobia F40.01 ; Cannabis use disorder, moderate, dependence F12.20 ; Cigarette nicotine dependence with other nicotine-induced disorder F17.218 ; Anxiety, generalized F41.1 ; Post-traumatic stress disorder F43.10 and Adjustment disorder with mixed anxiety and depressed mood F43.23 [place] [id number] [place] [address] 89281- 3126 Oct, Bipolar disorder, unspecified F31.9 ; Chronic post- traumatic stress disorder (PTSD) F43.12 ; Panic disorder with agoraphobia F40.01 and Cannabis use disorder, moderate, dependence F12.20 [place] [id number] [place] [address] 91056- 3098 Oct, Bipolar disorder, unspecified F31.9 ; Panic disorder with agoraphobia F40.01 ; Cannabis use disorder, moderate, dependence F12.20 ; Cigarette nicotine dependence with other nicotine-induced disorder F17.218 ; Anxiety, generalized F41.1 ; Post-traumatic stress disorder F43.10 and Adjustment disorder with mixed anxiety and depressed mood F43.23 [place] [address] [place] [address] 26680- 4315 14 Oct, 2016 Viral gastroenteritis A08.4 [id number] [place] [address] 07241- 8284 09 Oct, 2016 Anxiety, generalized F41.1 ; Post-traumatic stress disorder F43.10 ; Adjustment disorder with depressed mood F43.21 and Adjustment disorder with anxious mood F43.22 [place] [id number] [place] [address] 10595- 5483 07 Oct, 2016 Panic disorder with agoraphobia F40.01 ; Cannabis use disorder, moderate, dependence F12.20 ; Bipolar disorder, unspecified F31.9 ; Cigarette nicotine dependence with other nicotine-induced disorder F17.218 ; Adjustment disorder with anxious mood F43.22 ; Anxiety, generalized F41.1 ; Post -traumatic stress disorder F43.10 and Cannabis dependence F12.20 [address] [address] [place] [address] 28074- 1148 Oct, Bipolar disorder, unspecified F31.9 and Chronic post- traumatic stress disorder (PTSD) F43.12 [address] [id number] [place] [address] 64722- 6701 Oct, Bipolar disorder, unspecified F31.9 and Chronic post- traumatic stress disorder (PTSD) F43.12 [id number] [place] [address] 70502- 6138 Sep, Bipolar disorder, unspecified F31.9 ; Panic disorder with agoraphobia F40.01 ; PTSD (post-traumatic stress disorder) F43.10 ; Cannabis use disorder, moderate, dependence F12.20 ; Cannabis dependence F12.20 and Anxiety, generalized F41.1 [place] [id number] [place] [address] 51221- 5116 Sep, Cannabis use disorder, moderate, dependence F12.20 ; Anxiety , generalized F41.1 and Adjustment disorder with mixed anxiety and depressed mood F43.23 [place] [id number] [place] [address] 25837- 1995 15 Sep, 2016 Bipolar disorder, unspecified F31.9 ; Panic disorder with agoraphobia F40.01 ; PTSD (post-traumatic stress disorder) F43.10 ; Cannabis use disorder, moderate, dependence F12.20 ; Cannabis dependence F12.20 and Anxiety, generalized F41.1 [place] [id number] [place] [address] 27072- 0614 10 Sep, 2016 Bipolar disorder, unspecified F31.9 ; Panic disorder with agoraphobia F40.01 ; PTSD (post-traumatic stress disorder) F43.10 ; Cannabis use disorder, moderate, dependence F12.20 ; Cannabis dependence F12.20 and Anxiety, generalized F41.1 [place] [id number] [place] [address] 75425- 3966 Sep, Bipolar disorder, unspecified F31.9 ; Post-traumatic stress disorder F43.10 and Cannabis dependence F12.20 [address] [place] [address] Sep, [place] [id number] [place] [address] 07334- 6879 Sep, Suicidal behavior without attempted self-injury R46.89 [place] [id number] [place] [address] 15937- 2275 Sep, [place] [address] 31770- 8643 07 Sep, 2016 Cannabis use disorder, moderate, dependence F12.20 ; Panic disorder with agoraphobia F40.01 ; Bipolar disorder, unspecified F31.9 and Anxiety, generalized F41.1 [address] [id number] [place] [address] 12909- 1602 Sep, Bipolar disorder, unspecified F31.9 ; PTSD (post-traumatic stress disorder) F43.10 ; Panic disorder with agoraphobia F40.01 and Cannabis use disorder, moderate, dependence F12.20 [address] [address] [place] [address] 33958- 6985 Sep, [address] [id number] [place] [address] 80915- 6804 Sep, PTSD (post-traumatic stress disorder) F43.10 ; Cannabis use disorder, moderate, dependence F12.20 and Suicidal risk R45.89 [place] [id number] [place] [address] 49463- 0992 Sep, [place] [id number] [place] [address] 77862- 4211 Jul, Bipolar disorder, unspecified F31.9 ; PTSD (post-traumatic stress disorder) F43.10 and Panic disorder with agoraphobia F40.01 [place] [id number] [place] [address] 26280- 4317 Jul, Obstructive sleep apnea syndrome G47.33 ; Moderate persistent asthma without complication J45.40 and Cigarette nicotine dependence with other nicotine-induced disorder F17.218 [place] [id number] [place] [address] 95815- 0066 Jul, [facility] [id number] [place] [address] 52085- 3504 Jul, [facility] [address] [place] [address] 02794- 4959 May, [facility] [id number] [place] [address] 25333- 2767 May, [facility] [id number] [place] [address] 50989- 8876 May, [facility] [id number] [place] [address]- 2546 Apr, [address] [address]- 5098 Apr, Bipolar disorder, unspecified F31.9 ; PTSD (post-traumatic stress disorder) F43.10 ; Panic disorder with agoraphobia F40.01 and Cannabis use disorder, moderate, dependence F12.20 [place] [id number] [place] [address] 29979- 3936 Mar, Uncomplicated asthma, unspecified asthma severity J45.909 [address] [id number] [place] [address] 28491- 4879 Mar, [place] [id number] [place] [address] 46670- 2348 Mar, Moderate persistent asthma without complication J45.40 ; Gastroesophageal reflux disease without esophagitis K21.9 and Cigarette nicotine dependence with other nicotine-induced disorder F17.218 [place] [id number] [place] [address] 61357- 3098 Feb, [place] [id number] [place] [address] 80956- 3688 Jan, Bipolar disorder, unspecified F31.9 ; PTSD (post-traumatic stress disorder) F43.10 ; Panic disorder with agoraphobia F40.01 and Cannabis use disorder, moderate, dependence F12.20 [address] [address] [place] [address] 15607- 7017 December, [place] [id number] [place] [address] 39365- 5461 Nov, [place] [id number] [place] [address] 58255- 5632 Nov, Bipolar disorder, unspecified F31.9 ; PTSD (post-traumatic stress disorder) F43.10 ; Panic disorder with agoraphobia F40.01 and Cannabis use disorder, moderate, dependence F12.20 [place] [id number] [place] [address] 31998- 0281 Oct, [place] [id number] [place] [address] 55439- 4343 Oct, [place] [id number] [place] [address] 277216- 3029 Sep, [place] [id number] [place] [address] 65629- 3339 Sep, Bipolar disorder, unspecified F31.9 ; PTSD (post-traumatic stress disorder) F43.10 ; Panic disorder with agoraphobia F40.01 and Cannabis use disorder, moderate, dependence F12.20 [place] [id number] [place] [address] 84230- 2440 Aug, [place] [id number] [place] [address] 26658- 7599 Aug, [place] [id number] [place] [address] 21140- 0534 Aug, Bipolar disorder, unspecified F31.9 ; PTSD (post-traumatic stress disorder) F43.10 ; Panic disorder with agoraphobia F40.01 and Cannabis use disorder, moderate, dependence F12.20 [address] [place] [address] 50248- 1442 Jul, [id number] [place] [address] 21495- 2947 Apr, GERD (gastroesophageal reflux disease) 530.81 and Internal hemorrhoids 455.0 [id number] [place] [address] 58157- 4435 Feb, Rectal bleeding 569.3 and Hemorrhoids 455.6 [id number] [place] [address] 69566- 9196 Jan, Sinusitis 473.9 and Otitis media 382.9 [id number] [place] [address] 15920- 2627 December, [facility] [place] [facility] [address] [id number] [place] [address]- 8286 14 Nov, 2014 [facility] [place] [facility] [address] [id number] [place] [address]- 2694 Nov, [facility] [place] [facility] [address] [id number] [place] [address]- 4415 Oct, 2014 [facility] [place] [facility] [address] [id number] [place] [address]- 5130 Oct, [facility] [place] [facility] [address] [id number] [place] [address]- 5326 Sep, [facility] [place] [facility] [address] [id number] [place] [address]- 1028 Sep, [facility] [place] [facility] [address] [id number] [place] [address]- 1639 Aug, [facility] [place] [facility] [address] [id number] [place] [address]- 9273 Aug, [facility] [place] [facility] [address] [id number] [place] [address]- 1337 Jul, [facility] [place] [facility] [address] [id number] [place] [address]- 7683 Jul, [facility] [place] [facility] [address] [id number] [place] [address]- 5826 Jul, [facility] [place] [facility] [address] [id number] [place] [address]- 8691 Jul, [facility] [place] [facility] [address] [id number] [place] [address]- 1310 Jul, [facility] [place] [facility] [address] [id number] [place] [address]- 1677 Jul, [facility] [place] [facility] [address] [id number] [place] 1132 Jul, [facility] [place] [facility] [address] [id number], [place] [address]- 9827 Jul, [facility] [place] [facility] [address] [id number] [place] [address]- 6167 Jun, [facility] [place] [facility] [address] [id number] [place] [address]- 2119 Jun, [facility] [place] [facility] [address] [id number] [place] [address]- 3018 Jun, [facility] [place] [facility] [address] [id number] [place]- 9894 Jun, [facility] [place] [facility] [address] [id number] [place] [address]- 7942 May, [facility] [place] [facility] [address] [id number] [place] [address]- 8640 May, [facility] [place] [facility] [address] [id number] [place] [address]- 9549 May, [facility] [place] [facility] [address] [id number] [place] [address]- 9785 May, [facility] [place] [facility] [address] [id number] [place] [address]- 7241 Apr, [facility] [place] [facility] [address] [id number] [place] [address]- 6679 Apr, [facility] [place] [facility] [address] [id number], [place] [address]- 4915 Apr, [facility] [place] [facility] [address] [id number], [place] [address]- 7408 Apr, [facility] [place] [facility] [address] [id number] [place] [address]- 9812 Mar, [facility] [place] [facility] [address] [id number] [place] [address]- 3805 Mar, [facility] [place] [facility] [address] [id number] [place] [address]- 3556 Mar, [facility] [place] [facility] [address] [id number] [place] [address]- 5811 Mar, [facility] [place] [facility] [address] [id number] [place] [address]- 0967 December, [facility] [place] [facility] [address] [id number] [place] [address]- 9106 December, [facility] [place] [facility] [address] [id number] [place] [address]- 0748 Nov, [facility] [place] [facility] [address] [id number] [place] [address]- 1151 Nov, [facility] [place] [facility] [address] [id number] [place] [address]- 1546 Sep, [facility] [place] [facility] [address] [facility] [id number] [place] [address]- 7724 Sep, [facility] [place] [facility] [address] [facility] [id number] [place] [address]- 9219 Sep, [facility] [place] [facility] [address] [facility] [id number] [place] [address]- 6988 Sep, [facility] [place] [facility] [address] [facility] [id number] [place] [address]- 9920 Aug, [facility] [place] [facility] [address] [facility] [id number] [place] [address]- 4141 Jul, [facility] [place] [facility] [address] [facility] [id number] [place] [address]- 2829 Jul, [facility] [place] [facility] [address] [id number] [place] [address]- 9949 Jun, [facility] [place] [facility] [address] [id number] [place] [address]- 2389 Jun, [facility] [place] [facility] [address] [facility] [id number] [place] [address]- 9676 May, [facility] [place] [facility] [address] [facility] [id number] [place] [address]- 4451 18 May, 2013 [facility] [address] [id number] [place] [address]- 2523 07 May, 2013 [facility] [place] [facility] [address] [id number] [place] [address]- 4135 17 Apr, 2013 [facility] [place] [facility] [address] [id number] [place] [address]- 7703 16 Apr, 2013 [facility] [place] [facility] [address] [id number] [place] [address]- 6036 09 Apr, 2013 [facility] [place] [facility] [address] [id number] [place] [address] 09 Apr, 2013 [facility] [place] [facility] [address] [id number] [place] [address] Mar, [facility] [place] [facility] [address] [id number] [place] [address] Mar, [facility] [place] [facility] [address] [id number] [place] [address] December, [facility] [place] [facility] [address] [id number] [place] [address] Oct, [facility] [place] [facility] [address] [id number] [place] [address] Oct, [facility] [place] [facility] [address] [id number], [place] [address] Aug, [facility] [place] [facility] [address] [id number], [place] [address] Jul, [facility] [place] [facility] [address] [id number] [place] [address] 17 Jul, 2012 [facility] [place] [facility] [address] [id number] [place] [address] 13 Jul, 2012 [facility] [place] [facility] [address] [id number] [place] [address] Jul, [facility] [place] [facility] [address] [id number] [place] [address] 14 Jun, 2012 [facility] [address] [id number] [place] [address] 14 Jun, 2012 [facility] [place] [facility] [address] [id number] [place] [address] 14 Mar, 2012 [facility] [place] [facility] [address] [id number] [place] [address] 16 Feb, 2012 [facility] [place] [facility] [address] [id number] [place] [address] 16 Feb, 2012 [facility] [place] [facility] [address] [address] [id number] [place] [address] December, [facility] [place] [facility] [address] [id number] [place] [address] 17 Nov, 2011 [facility] [address] [id number] [place] [address] 23 Oct, 2011 [facility] [place] [facility] [address] [id number] [place] [address] Oct, [facility] [place] [facility] [address] [id number] [place] [address] 09 Sep, 2011 [facility] [place] [facility] [address] [id number] [place] [address] Sep, [facility] [place] [facility] [address] [id number] [place] [address] Aug, [facility] [place] [facility] [address] [id number] [place] [address] Aug, [facility] [place] [facility] [address] [id number] [place] [address] Jul, [facility] [place] [facility] [address] [id number] [place] [address] Jul, [facility] [place] [facility] [address] [id number] [place] [address] Jul, [facility] [address] [facility] [id number] [address] Jun, [facility] [address] [facility] [id number][place] [address] May, [facility] [address] [facility] [id number], [place] [address] Apr, [facility] [address] [facility] [id number], [place] [address] Feb, [facility] [address] [facility] [id number], [place] [address] Sep, [facility] [address] [facility] [id number], [place] [address] Jul, [facility] [address] [id number], [place] [address] Jul, [facility] [address] [id number], [place] [address] Jul, [facility] [address] [id number], [place] [address] Jul, [facility] [address] [id number], [place] [address] Jun, [facility] [id number], [place] [address] Feb, [facility] [address] [id number], [place] [address] Jan, [facility] [address] [id number], [place] [address] Feb, [facility] [address] [id number], [place] [address] Jul, IMMUNIZATIONS No Known Immunizations SOCIAL HISTORY Never Assessed REASON FOR VISIT Medication refill request PLAN OF CARE VITAL SIGNS MEDICATIONS Medication Instructions Dosage Frequency Start Date End Date Duration Status Ibuprofen 800 MG TAKE 1 TABLET (800 MG) BY ORAL ROUTE 3 TIMES PER DAY WITH FOOD Active ProAir HFA 108 (90 Base) MCG/ACT Inhalation every 4 hrs as needed 2 puffs as needed Active RESULTS No Results PROCEDURES No Known [...]
--- OUTSIDE RECORDS SUMMARY | 2018-06-08 16:02 | XMS REPORT ---
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 Name Role Phone KORY CHAND Unavailable PROBLEMS Type Condition ICD9-CM Code [id number] Code Onset Dates Condition Status SNOMED Code Problem Anxiety, generalized F41.1 Active 02165534 Problem Post-traumatic stress disorder F43.10 Active 28446949 Problem Cannabis dependence F12.20 Active 51345353 Problem Seizures R56.9 Active 58716529 Problem Other chronic pain G89.29 Active 23813137 Problem Adjustment disorder with mixed anxiety and depressed mood F43.23 Active 10906682 Problem Chronic post-traumatic stress disorder (PTSD) F43.12 Active 687803335 Problem Adjustment disorder with depressed mood F43.21 Active 22726174 Problem Adjustment disorder with anxious mood F43.22 Active 96107655 Problem Bipolar disorder, unspecified F31.9 Active 87569572 Problem Gastroesophageal reflux disease without esophagitis K21.9 Active 122308431 Problem Cigarette nicotine dependence with other nicotine-induced disorder F17.218 Active 28926979 Problem Panic disorder with agoraphobia F40.01 Active 31248210 Problem Moderate persistent asthma without complication J45.40 Active 139566366 Problem Cannabis use disorder, moderate, dependence F12.20 Active 89243464 Problem Obstructive sleep apnea syndrome G47.33 Active 82880744 ALLERGIES No Information ENCOUNTERS Encounter Location Date Diagnosis [facility] [address] [facility] [id number] [address] Aug, [facility] [address] [address] May, Se[address] R56.9 [facility] [address] [place] [address] [id number] [address] 09 May, 2018 [facility] [address] [address] Apr, [place] [address] [address] Apr, [place] [address] [address] Apr, [place] [address] [address] 4088 Apr, [place] [address] [place] [id number] [place] [address] 05374- 8882 Apr, Bipolar disorder, unspecified F31.9 ; Panic disorder with agoraphobia F40.01 and Cannabis use disorder, moderate, dependence F12.20 [place] [address] [address] Mar, [place] [address] [place] [id number] [place] [address] 05543- 8881 Mar, [place] [address] [id number] [place] [address] 26236- 8430 Jan, Low back pain M54.5 ; Moderate persistent asthma without complication J45.40 and Other chronic pain G89.29 [place] [address], [place] [address] Jan, Moderate persistent asthma without complication J45.40 ; Low back pain M54.5 ; Other chronic pain G89.29 ; Gastroesophageal reflux disease without esophagitis K21.9 and Cigarette nicotine dependence with other nicotine-induced disorder F17.218 [place] [address] [address] December, Bipolar disorder, unspecified F31.9 ; Panic disorder with agoraphobia F40.01 ; Cannabis use disorder, moderate, dependence F12.20 and Chronic post-traumatic stress disorder (PTSD) F43.12 [place] [address] [address] 0[address] December, [place] [address] [place] [id number] [place] [address] 65832- 6711 December, [place] [address] [place] [address] [id number] [place] [address] 78077- 2224 Nov, [place] [address] [place] [address] [id number] [place] [address] Oct, Bipolar disorder, unspecified F31.9 ; Chronic post- traumatic stress disorder (PTSD) F43.12 ; Panic disorder with agoraphobia F40.01 and Cannabis use disorder, moderate, dependence F12.20 [place] [address] [place] [id number] [place] [address] 41627- 7348 Sep, [place] [address] [place]38577- 3451 Sep, [place] [address] [address]991- 2187 Aug, [place] [address] [address]23- 9902 Aug, Cannabis use disorder, moderate, dependence F12.20 ; Panic disorder with agoraphobia F40.01 and Bipolar affective disorder, currently depressed, moderate F31.32 [place] [address] [id number] [place] [address] 69403- 4913 May, Diarrhea of presumed infectious origin A09 and Nausea and vomiting, intractability of vomiting not specified, unspecified vomiting type R11.2 [place] [address] [place] [id number] [place] [address] 48159- 5196 Apr, [place] [address] 01230- 1184 Mar, Nausea R11.0 and Gastroenteritis K52.[address] [address]- 5338 Mar, Gastroesophageal reflux disease without esophagitis K21.[address] 24201- 1470 Mar, Gastroesophageal reflux disease without esophagitis K21.9 [facility] [id number] [place] [address] 86221- 6038 Mar, [facility] [address] [id number] [place] [address] 08697- 4089 Mar, [facility] [address] [id number] [place] [address] 06742- 3480 Mar, [facility] [address] [id number] [place] [address] 57778- 3967 Feb, Acute pain of right shoulder M25.511 and Muscle spasm M62.838 [place] [address] 08518- 2440 Feb, Acute labyrinthitis, unspecified laterality H83.09 [place] [address] 11172- 7903 December, [place] [address] [place] [id number] [place] [address] 49299- 8048 December, [place] [address] [id number] [place] [address] 45130- 3664 December, Cannabis use disorder, moderate, dependence F12.20 ; Anxiety , generalized F41.1 ; Adjustment disorder with mixed anxiety and depressed mood F43.23 and Chronic post-traumatic stress disorder (PTSD) F43.12 [place] [address] [place] [id number] [place] [address] 83117- 7549 December, [place] [address] [address] [id number] [place] [address] 31649- 4361 December, [place] [address] [id number] [place] [address] 96628- 8265 Nov, Acute nasopharyngitis J00 [facility] [address] [id number] [place] [address] 32346- 4727 Nov, Cannabis use disorder, moderate, dependence F12.20 ; Anxiety , generalized F41.1 ; Adjustment disorder with mixed anxiety and depressed mood F43.23 and Chronic post-traumatic stress disorder (PTSD) F43.12 [place] [address] [place] [address] [id number] [place] [address] Nov, Cannabis use disorder, moderate, dependence F12.20 ; Anxiety , generalized F41.1 ; Adjustment disorder with mixed anxiety and depressed mood F43.23 and Chronic post-traumatic stress disorder (PTSD) F43.12 [place] [address] [place]38579- [address] 31 Oct, 2016 Diarrhea, unspecified R19.7 ; Vomiting, unspecified R11.10 and Viral gastroenteritis A08.4 [place] [id number] [place] [address] 24348- 5309 29 Oct, 2016 Bipolar disorder, unspecified F31.9 ; Panic disorder with agoraphobia F40.01 ; Cannabis use disorder, moderate, dependence F12.20 ; Cigarette nicotine dependence with other nicotine-induced disorder F17.218 ; Anxiety, generalized F41.1 ; Post-traumatic stress disorder F43.10 and Adjustment disorder with mixed anxiety and depressed mood F43.23 [place] [id number] [place] [address] 79909- 6593 Oct, Bipolar disorder, unspecified F31.9 ; Chronic post- traumatic stress disorder (PTSD) F43.12 ; Panic disorder with agoraphobia F40.01 and Cannabis use disorder, moderate, dependence F12.20 [place] [address] [id number] [place] [address] 79036- 8906 Oct, Bipolar disorder, unspecified F31.9 ; Panic disorder with agoraphobia F40.01 ; Cannabis use disorder, moderate, dependence F12.20 ; Cigarette nicotine dependence with other nicotine-induced disorder F17.218 ; Anxiety, generalized F41.1 ; Post-traumatic stress disorder F43.10 and Adjustment disorder with mixed anxiety and depressed mood F43.23 [place] [id number] [place] [address] 87133- 0687 14 Oct, 2016 Viral gastroenteritis A08.4 [place] [id number] [address]- 9082 Oct, Anxiety, generalized F41.1 ; Post-traumatic stress disorder F43.10 ; Adjustment disorder with depressed mood F43.21 and Adjustment disorder with anxious mood F43.22 [place] [address] [place] [address] 14632- 3387 Oct, Panic disorder with agoraphobia F40.01 ; Cannabis use disorder, moderate, dependence F12.20 ; Bipolar disorder, unspecified F31.9 ; Cigarette nicotine dependence with other nicotine-induced disorder F17.218 ; Adjustment disorder with anxious mood F43.22 ; Anxiety, generalized F41.1 ; Post -traumatic stress disorder F43.10 and Cannabis dependence F12.20 [place] [address] [place] [id number] [place] [address] 08272- 1421 Oct, Bipolar disorder, unspecified F31.9 and Chronic post- traumatic stress disorder (PTSD) F43.12 [place] [id number] [place] [address] 95458- 0093 Oct, Bipolar disorder, unspecified F31.9 and Chronic post- traumatic stress disorder (PTSD) F43.12 [place] [address] [place] [address] 01976- 2329 Sep, Bipolar disorder, unspecified F31.9 ; Panic disorder with agoraphobia F40.01 ; PTSD (post-traumatic stress disorder) F43.10 ; Cannabis use disorder, moderate, dependence F12.20 ; Cannabis dependence F12.20 and Anxiety, generalized F41.1 [address] [place] [address] 17149- 8498 Sep, Cannabis use disorder, moderate, dependence F12.20 ; Anxiety , generalized F41.1 and Adjustment disorder with mixed anxiety and depressed mood F43.23 [address] [place] [address] 04826- 5979 15 Sep, 2016 Bipolar disorder, unspecified F31.9 ; Panic disorder with agoraphobia F40.01 ; PTSD (post-traumatic stress disorder) F43.10 ; Cannabis use disorder, moderate, dependence F12.20 ; Cannabis dependence F12.20 and Anxiety, generalized F41.1 [place] [address] [place] [id number] [place] [address]68 Sep, Bipolar disorder, unspecified F31.9 ; Panic disorder with agoraphobia F40.01 ; PTSD (post-traumatic stress disorder) F43.10 ; Cannabis use disorder, moderate, dependence F12.20 ; Cannabis dependence F12.20 and Anxiety, generalized F41.1 [place] [address] [id number] [place] [address] 96853- 0776 Sep, Bipolar disorder, unspecified F31.9 ; Post-traumatic stress disorder F43.10 and Cannabis dependence F12.20 [place] [address] Sep, [place]- 7319 Sep, Suicidal behavior without attempted self-injury R46.89 [place] [id number] [place] [address] 94499- 4331 Sep, [place] [id number] [place] [address] 67567- 0748 Sep, Cannabis use disorder, moderate, dependence F12.20 ; Panic disorder with agoraphobia F40.01 ; Bipolar disorder, unspecified F31.9 and Anxiety, generalized F41.1 [place] [address] [place] [id number] [place] [address]01 Sep, Bipolar disorder, unspecified F31.9 ; PTSD (post-traumatic stress disorder) F43.10 ; Panic disorder with agoraphobia F40.01 and Cannabis use disorder, moderate, dependence F12.20 [place] [address] [place] [address] 85381- 5857 Sep, [place] [address] [place] [id number] [place] [address] 36318- 6836 Sep, PTSD (post-traumatic stress disorder) F43.10 ; Cannabis use disorder, moderate, dependence F12.20 and Suicidal risk R45.89 [place] [address] [place] [id number] [place] [address] 05682- 7308 Sep, [place] [address] [place] [address] [id number] [place] [address] 93267- 6807 Jul, Bipolar disorder, unspecified F31.9 ; PTSD (post-traumatic stress disorder) F43.10 and Panic disorder with agoraphobia F40.01 [place] [address] [id number] [place] [address] 47392- 4019 Jul, Obstructive sleep apnea syndrome G47.33 ; Moderate persistent asthma without complication J45.40 and Cigarette nicotine dependence with other nicotine-induced disorder F17.218 [place] [address] [place] [id number] [place] [address] 46599- 6911 Jul, [place] [address] 16639- 6067 Jul, [place] [address] [place] [id number] [place] [address] 15457- 1019 May, [place] [address] [place] [id number] [place] [address] 54597- 6144 May, [place] [address] [id number] [place] [address] 51374- 1109 May, [place] [address] [address] [id number] [place] [address] 29210- 9617 Apr, [place] [address] [place] [address] [id number] [place] [address] 11638- 4105 Apr, Bipolar disorder, unspecified F31.9 ; PTSD (post-traumatic stress disorder) F43.10 ; Panic disorder with agoraphobia F40.01 and Cannabis use disorder, moderate, dependence F12.20 [place] [address] [place] [id number] [place] [address] 59932- 7304 Mar, Uncomplicated asthma, unspecified asthma severity J45.909 [place] [address] [place] [address] 42058- 7792 Mar, [place] [address] [place] [id number] [place] [address] 66402- 4829 Mar, Moderate persistent asthma without complication J45.40 ; Gastroesophageal reflux disease without esophagitis K21.9 and Cigarette nicotine dependence with other nicotine-induced disorder F17.218 [place] [address] [place] [id number] [place] [address] 89115- 7590 Feb, [place] [address] [address] [id number] [place] [address] 16634- 7722 Jan, Bipolar disorder, unspecified F31.9 ; PTSD (post-traumatic stress disorder) F43.10 ; Panic disorder with agoraphobia F40.01 and Cannabis use disorder, moderate, dependence F12.20 [place] [address] [place] [id number] [place] [address] 66157- 1944 December, [place] [address] [id number] [place] [address] 30314- 3713 Nov, [place] [address] [address] [id number] [place] [address] 48923- 3247 Nov, Bipolar disorder, unspecified F31.9 ; PTSD (post-traumatic stress disorder) F43.10 ; Panic disorder with agoraphobia F40.01 and Cannabis use disorder, moderate, dependence F12.20 [place] [address] [place] [address] 10069- 0959 Oct, [place] [address] [place] [address] 80402- 3999 Oct, [place] [address] [place] [id number] [place] [address] 81971- 8270 Sep, [place] [address] [place] [address] 21841- 7413 Sep, Bipolar disorder, unspecified F31.9 ; PTSD (post-traumatic stress disorder) F43.10 ; Panic disorder with agoraphobia F40.01 and Cannabis use disorder, moderate, dependence F12.20 [place] [address] [place] [id number] [place] [address] 20875- 6541 Aug, [facility] [id number] [place] [address] 56710- 8789 Aug, [facility] [address] 92900- 4833 Aug, Bipolar disorder, unspecified F31.9 ; PTSD (post-traumatic stress disorder) F43.10 ; Panic disorder with agoraphobia F40.01 and Cannabis use disorder, moderate, dependence F12.20 [place] [address] [place] [id number] [place] [address] 28613- 3731 Jul, [place] [address] [place] [id number] [place] [address] 27700- 1508 Apr, GERD (gastroesophageal reflux disease) 530.81 and Internal hemorrhoids 455.0 [place] [address] [id number] [place] [address] 68781- 0820 Feb, Rectal bleeding 569.3 and Hemorrhoids 455.6 [place] [address] [place] [id number] [place] [address] 64289- 3932 Jan, Sinusitis 473.9 and Otitis media 382.9 [place] [address] [place] [id number] [place] [address] 87345- 0684 December, [facility] [address] [id number] [place] [address] 79260- 7882 Nov, [place] [address] [place] [id number] [place] [address] 31808- 4944 Nov, [facility] [id number] [place] [address] [id number]- 7054 Oct, [facility] [address] [id number] [place] [address] 51484- 4608 Oct, [facility] [place] [facility] [address] [id number] [place] [address]- 2718 Sep, [facility] [place] [facility] [address] [id number] [place] [address]- 2587 Sep, [facility] [place] [facility] [address] [id number] [place] [address]- 4689 Aug, [facility] [place] [facility] [address] [id number] [place] [address]- 0916 Aug, [facility] [place] [facility] [address] [id number] [place] [address]- 1445 Jul, [facility] [place] [facility] [address] [id number] [place] [address]- 3815 Jul, [facility] [place] [facility] [address] [id number] [place] [address]- 9822 Jul, [facility] [place] [facility] [address] [id number] [place] [address]- 5074 Jul, [facility] [place] [facility] [address] [id number] [place] [address]- 6154 Jul, [facility] [place] [facility] [address] [id number] [place] [address]- 3839 Jul, [facility] [place] [facility] [address] [id number] [place] [address]- 9563 Jul, [facility] [place] [facility] [address] [id number] [place] [address]- 8469 Jul, [facility] [place] [facility] [address] [id number] [place] [address]- 9362 Jun, [facility] [place] [facility] [address] [id number] [place] [address]- 5394 Jun, [facility] [place] [facility] [address] [id number] [place] [address]- 1695 Jun, [facility] [place] [facility] [address] [id number] [address]- 8296 Jun, [facility] [place] [facility] [address] [id number] [place] 6352 May, [facility] [place] [facility] [address] [id number] [place] [address]- 0847 May, [facility] [place] [facility] [address] [id number] [place] [address]- 4318 May, [facility] [place] [facility] [address] [id number] [place] [address]- 1729 May, [facility] [place] [facility] [address] [id number] [place] [address]- 1284 Apr, [facility] [place] [facility] [address] [id number] [place] [address]- 0892 Apr, [facility] [place] [facility] [address] [id number] [place] [address]- 1167 Apr, [facility] [place] [facility] [address] [id number] [place] [address]- 3383 Apr, [facility] [place] [facility] [address] [id number] [place] [address]- 9456 Mar, [facility] [place] [facility] [address] [id number] [place] [address]- 5839 Mar, [facility] [place] [facility] [address] [id number] [place] [address]- 4113 Mar, [facility] [place] [facility] [address] [id number] [address]- 9658 Mar, [facility] [place] [facility] [address] [id number] [place] [address]- 9893 December, [facility] [place] [facility] [address] [id number] [place] [address]- 1136 December, [facility] [place] [facility] [address] [id number] [place] [address]- 7539 Nov, [facility] [place] [facility] [address] [id number] [place] [address]- 4424 08 Nov, 2013 [facility] [address] [id number] [place] [address]- 2468 Sep, 2013 [facility] [place] [facility] [address] [id number] [place] [address]- 3606 10 Sep, 2013 [facility] [place] [facility] [address] [id number] [place] [address]- 3496 Sep, [facility] [place] [facility] [address] [id number] [place] [address]- 2546 Sep, [facility] [place] [facility] [address] [id number] [place] [address]- 3426 Aug, [facility] [place] [facility] [address] [facility] [id number] [place] [address]- 1558 Jul, [facility] [place] [facility] [address] [facility] [id number] [place] [address]- 5568 Jul, [facility] [place] [facility] [address] [id number] [place] [address]- 3594 Jun, [facility] [place] [facility] [address] [facility] [id number] [place] [address]- 4864 Jun, [facility] [place] [facility] [address] [facility] [id number] [place] [address]- 9872 May, [facility] [place] [facility] [address] [facility] [id number] [place] [address]- 4994 18 May, 2013 [facility] [place] [facility] [address] [id number] [place] [address]- 3907 07 May, 2013 [facility] [place] [facility] [address] [facility] [id number] [place] [address]- 1846 17 Apr, 2013 [facility] [place] [facility] [address] [facility] [id number] [place] [address]- 2546 16 Apr, 2013 [facility] [place] [facility] [address] [facility] [id number] [place] [address] 2543 09 Apr, 2013 [facility] [place] [facility] [address] [id number] [place] [address]- 9976 09 Apr, 2013 [facility] [place] [facility] [address] [id number] [place] [address]- 9252 Mar, [facility] [place] [facility] [address] [id number] [place] [address]- 1660 Mar, [facility] [place] [facility] [address] [id number] [place] [address]- 8293 December, [facility] [place] [facility] [address] [id number] [place] [address]- 8101 Oct, [facility] [place] [facility] [address] [id number] [place] [address]- 3852 Oct, [facility] [place] [facility] [address] [id number] [place] [address] Aug, [facility] [place] [facility] [address] [id number] [place] [address] 17 Jul, 2012 [facility] [place] [facility] [address] [id number] [place] [address] 17 Jul, 2012 [facility] [place] [facility] [address] [id number] [place] [address] 13 Jul, 2012 [facility] [place] [facility] [address] [id number] [place] [address] 13 Jul, 2012 [facility] [place] [facility] [address] [id number] [place] [address] 14 Jun, 2012 [facility] [place] [facility] [address] [id number] [place] [address] 14 Jun, 2012 [facility] [place] [facility] [address] [id number] [place] [address] 14 Mar, 2012 [facility] [place] [facility] [address] [id number] [place] [address] 16 Feb, 2012 [facility] [place] [facility] [address] [id number] [place] [id number] 16 Feb, 2012 [facility] [address] [id number] [place] [address] December, [facility] [place] [facility] [address] [id number] [place] [id number] Nov, [facility] [place] [facility] [address] [id number] [place] [address] Oct, [facility] [place] [facility] [address] [id number] [place] [address] Oct, [facility] [place] [facility] [address] [id number] [place] [address] Sep, [facility] [place] [facility] [address] [id number] [place] [address] Sep, [facility] [address] [id number] [place] [address] Aug, [facility] [address] [id number] [place] [address] Aug, [facility] [place] [facility] [address] [id number] [place] [address] Jul, [facility] [place] [facility] [address] [id number] [place] [address] Jul, [facility] [place] [facility] [address] [id number] [place] [address] Jul, [facility] [place] [facility] [address] [id number] [place] [address] Jun, [facility] [place] [facility] [address] [id number] [place] [address] 17 May, 2011 [facility] [place] [facility] [address] [id number] [place] [address] Apr, [facility] [place] [facility] [address] [id number] [place] [address] Feb, [facility] [address] [facility] [id number] [address] Sep, [facility] [address] [facility] [id number] [address] Jul, [facility] [address] [facility] [id number] [address] Jul, [facility] [address] [facility] [id number] [address] Jul, [facility] [address] [facility] [id number] [address] Jul, [facility] [address] [facility] [id number] [address] Jun, [facility] [id number] [address] Feb, [facility] [id number] [address] Jan, [facility] [address] [id number], [place] [address] Feb, [facility] [address] [id number], [place] [address] Jul, IMMUNIZATIONS No Known Immunizations SOCIAL HISTORY Never Assessed REASON FOR VISIT Medication question PLAN OF CARE VITAL SIGNS MEDICATIONS Medication Instructions Dosage Frequency Start Date End Date Duration Status Risperidone 2 MG Orally at bedtime for mood 1 tablet Apr, Active RESULTS No Results PROCEDURES No Known [...]
--- OUTSIDE RECORDS SUMMARY | 2018-06-08 16:03 | XMS REPORT ---
Author Author JAGRUTI KORY [facility] Address [address] [place] [address] Care Team Providers Care Bearingizer Name Role Phone KORY CHAND Unavailable PROBLEMS Type Condition ICD9-CM Code KUX03-GS Code Onset Dates Condition Status SNOMED Code Problem Obstructive sleep apnea syndrome G47.33 Active 41114599 Problem Cannabis dependence F12.20 Active 96573250 Problem Anxiety, generalized F41.1 Active 57876052 Problem Other chronic pain G89.29 Active 63933696 Problem Adjustment disorder with depressed mood F43.21 Active 62118026 Problem Chronic post-traumatic stress disorder (PTSD) F43.12 Active 391181866 Problem Post-traumatic stress disorder F43.10 Active 04123286 Problem Adjustment disorder with anxious mood F43.22 Active 88837849 Problem Adjustment disorder with mixed anxiety and depressed mood F43.23 Active 04338287 Problem Bipolar disorder, unspecified F31.9 Active 58023583 Problem Gastroesophageal reflux disease without esophagitis K21.9 Active 744853659 Problem Cannabis use disorder, moderate, dependence F12.20 Active 57755316 Problem Cigarette nicotine dependence with other nicotine-induced disorder F17.218 Active 68916915 Problem Panic disorder with agoraphobia F40.01 Active 30930698 Problem Moderate persistent asthma without complication J45.40 Active 538581775 ALLERGIES No Information ENCOUNTERS Encounter Location Date Diagnosis [facility] [id number], [place] [address] Aug, [facility] [id number], [place] [address] May, [facility] [id number], [place] [address] 6[address] Apr, [facility] [id number], [place] [address] Apr, [id number], [place] [address] 1476 Apr, [id number] [place] [address] 95601- 4431 Apr, [id number] [place] [address] 70167- 4896 Apr, Bipolar disorder, unspecified F31.9 ; Panic disorder with agoraphobia F40.01 and Cannabis use disorder, moderate, dependence F12.20 [place] [id number] [place] [address] 05834- 4925 Mar, [place] [id number] [place] [address] 78738- 7788 Mar, [place] [id number] [place] [address] 75346- 7564 Jan, Low back pain M54.5 ; Moderate persistent asthma without complication J45.40 and Other chronic pain G89.29 [place] [address] [place] [address] 24920- 9834 Jan, Moderate persistent asthma without complication J45.40 ; Low back pain M54.5 ; Other chronic pain G89.29 ; Gastroesophageal reflux disease without esophagitis K21.9 and Cigarette nicotine dependence with other nicotine-induced disorder F17.218 [place] [address] [place] [address] 78962- 6962 December, Bipolar disorder, unspecified F31.9 ; Panic disorder with agoraphobia F40.01 ; Cannabis use disorder, moderate, dependence F12.20 and Chronic post-traumatic stress disorder (PTSD) F43.12 [place] [id number] [place] [address] 18296- 4496 December, [place] [id number] [place] [address] 39681- 2875 December, [place] [id number] [place] [address] 58858- 1860 Nov, [place] [address] [place] [address] 53153- 2386 Oct, Bipolar disorder, unspecified F31.9 ; Chronic post- traumatic stress disorder (PTSD) F43.12 ; Panic disorder with agoraphobia F40.01 and Cannabis use disorder, moderate, dependence F12.20 [place] [id number] [place] [address] 01995- 5757 Sep, [place] [id number] [place] [address] 37573- 7043 Sep, [address] 6[address]95- 9213 Aug, [place] [id number] [place] [address] 37260- 4270 Aug, Cannabis use disorder, moderate, dependence F12.20 ; Panic disorder with agoraphobia F40.01 and Bipolar affective disorder, currently depressed, moderate F31.32 [place] [id number] [place] [address] 40578- 9201 May, Diarrhea of presumed infectious origin A09 and Nausea and vomiting, intractability of vomiting not specified, unspecified vomiting type R11.2 [id number] [place] [address] 94518- 4465 Apr, [id number] [place] [address] 43823- 4687 Mar, Nausea R11.0 and Gastroenteritis K52.9 [id number] [place] [address] 92701- 3874 Mar, Gastroesophageal reflux disease without esophagitis K21.9 [id number] [place] [address] 09370- 6466 Mar, Gastroesophageal reflux disease without esophagitis K21.9 [id number] [place] [address] 92394- 3759 Mar, [place] [address] [place] [address] 35067- 9361 Mar, [place] [id number] [place] [address] 36717- 0224 Mar, [place] [id number] [place] [address] 23466- 3200 Feb, Acute pain of right shoulder M25.511 and Muscle spasm M62.838 [place] [id number] [place] [address] 97208- 0116 Feb, Acute labyrinthitis, unspecified laterality H83.09 [place] [id number] [place] [address] 93674- 0014 December, [place] [id number] [place] [address] 90791- 9063 December, [place] [id number] [place] [address] 34593- 2276 December, Cannabis use disorder, moderate, dependence F12.20 ; Anxiety , generalized F41.1 ; Adjustment disorder with mixed anxiety and depressed mood F43.23 and Chronic post-traumatic stress disorder (PTSD) F43.12 [place] [address] [place] [address] 98972- 5704 December, [place] [id number] [place] [address] 25292- 1981 December, [place] [id number] [place] [address] 69246- 3813 Nov, Acute nasopharyngitis J00 [place] [id number] [place] [address] 00385- 4815 Nov, Cannabis use disorder, moderate, dependence F12.20 ; Anxiety , generalized F41.1 ; Adjustment disorder with mixed anxiety and depressed mood F43.23 and Chronic post-traumatic stress disorder (PTSD) F43.12 [place] [id number] [place] [address] 03139- 5116 Nov, Cannabis use disorder, moderate, dependence F12.20 ; Anxiety , generalized F41.1 ; Adjustment disorder with mixed anxiety and depressed mood F43.23 and Chronic post-traumatic stress disorder (PTSD) F43.12 [place] [address] [place] [address] 31 Oct, 2016 Diarrhea, unspecified R19.7 ; Vomiting, unspecified R11.10 and Viral gastroenteritis A08.4 [id number] [place] [address] 29 Oct, 2016 Bipolar disorder, unspecified F31.9 ; Panic disorder with agoraphobia F40.01 ; Cannabis use disorder, moderate, dependence F12.20 ; Cigarette nicotine dependence with other nicotine-induced disorder F17.218 ; Anxiety, generalized F41.1 ; Post-traumatic stress disorder F43.10 and Adjustment disorder with mixed anxiety and depressed mood F43.23 [id number] [place] [address] 62459- 6113 Oct, Bipolar disorder, unspecified F31.9 ; Chronic post- traumatic stress disorder (PTSD) F43.12 ; Panic disorder with agoraphobia F40.01 and Cannabis use disorder, moderate, dependence F12.20 [address] [place] [address] 72742- 9579 Oct, Bipolar disorder, unspecified F31.9 ; Panic disorder with agoraphobia F40.01 ; Cannabis use disorder, moderate, dependence F12.20 ; Cigarette nicotine dependence with other nicotine-induced disorder F17.218 ; Anxiety, generalized F41.1 ; Post-traumatic stress disorder F43.10 and Adjustment disorder with mixed anxiety and depressed mood F43.23 [id number] [place] [address] 14 Oct, 2016 Viral gastroenteritis A08.4 [id number] [place] [address] 3571 09 Oct, 2016 Anxiety, generalized F41.1 ; Post-traumatic stress disorder F43.10 ; Adjustment disorder with depressed mood F43.21 and Adjustment disorder with anxious mood F43.22 [address] [place] [address] 93006- 0244 Oct, Panic disorder with agoraphobia F40.01 ; Cannabis use disorder, moderate, dependence F12.20 ; Bipolar disorder, unspecified F31.9 ; Cigarette nicotine dependence with other nicotine-induced disorder F17.218 ; Adjustment disorder with anxious mood F43.22 ; Anxiety, generalized F41.1 ; Post -traumatic stress disorder F43.10 and Cannabis dependence F12.20 [id number] [place] [address] 85720- 3174 Oct, Bipolar disorder, unspecified F31.9 and Chronic post- traumatic stress disorder (PTSD) F43.12 [id number] [place] [address] 96557- 0526 Oct, Bipolar disorder, unspecified F31.9 and Chronic post- traumatic stress disorder (PTSD) F43.12 [id number] [place] [address] 36557- 3454 Sep, Bipolar disorder, unspecified F31.9 ; Panic disorder with agoraphobia F40.01 ; PTSD (post-traumatic stress disorder) F43.10 ; Cannabis use disorder, moderate, dependence F12.20 ; Cannabis dependence F12.20 and Anxiety, generalized F41.1 [id number] [place] [address] 01716- 1760 Sep, Cannabis use disorder, moderate, dependence F12.20 ; Anxiety , generalized F41.1 and Adjustment disorder with mixed anxiety and depressed mood F43.23 [address] [place] [address] 66099- 1353 15 Sep, 2016 Bipolar disorder, unspecified F31.9 ; Panic disorder with agoraphobia F40.01 ; PTSD (post-traumatic stress disorder) F43.10 ; Cannabis use disorder, moderate, dependence F12.20 ; Cannabis dependence F12.20 and Anxiety, generalized F41.1 [id number] [place] [address] 88817- 0600 Sep, Bipolar disorder, unspecified F31.9 ; Panic disorder with agoraphobia F40.01 ; PTSD (post-traumatic stress disorder) F43.10 ; Cannabis use disorder, moderate, dependence F12.20 ; Cannabis dependence F12.20 and Anxiety, generalized F41.1 [address] [id number] [place] 7848 Sep, Bipolar disorder, unspecified F31.9 ; Post-traumatic stress disorder F43.10 and Cannabis dependence F12.20 [address] [place] [address] Sep, [place] [address]- 7134 Sep, Suicidal behavior without attempted self-injury R46.89 [id number] [place] [address] 398399- 8011 Sep, [id number] [place] [address] 01841- 8695 Sep, Cannabis use disorder, moderate, dependence F12.20 ; Panic disorder with agoraphobia F40.01 ; Bipolar disorder, unspecified F31.9 and Anxiety, generalized F41.1 [address] [place] [address] 38491- 9557 Sep, Bipolar disorder, unspecified F31.9 ; PTSD (post-traumatic stress disorder) F43.10 ; Panic disorder with agoraphobia F40.01 and Cannabis use disorder, moderate, dependence F12.20 [address] [id number] [place] [address] 31543- 7826 Sep, [address] 89144- 9044 Sep, PTSD (post-traumatic stress disorder) F43.10 ; Cannabis use disorder, moderate, dependence F12.20 and Suicidal risk R45.89 [address] [id number] [place] [address]46 Sep, [facility] [address] [place] [address] 74449- 2249 Jul, Bipolar disorder, unspecified F31.9 ; PTSD (post-traumatic stress disorder) F43.10 and Panic disorder with agoraphobia F40.01 [facility] [address] [place] [address] 65161- 5357 Jul, Obstructive sleep apnea syndrome G47.33 ; Moderate persistent asthma without complication J45.40 and Cigarette nicotine dependence with other nicotine-induced disorder F17.218 [facility] [id number] [place] [address] 31728- 4990 Jul, [facility] [id number] [place] [address] 63937- 9702 Jul, [facility] [id number] [place] [address] 56142- 8695 May, [facility] [id number] [place] [address] 24619- 7361 May, [facility] [id number] [place] [address] 12822- 0866 May, [facility] [address] [place] [address] 32400- 3109 Apr, [facility] [id number] [place] [address] 96596- 2176 Apr, Bipolar disorder, unspecified F31.9 ; PTSD (post-traumatic stress disorder) F43.10 ; Panic disorder with agoraphobia F40.01 and Cannabis use disorder, moderate, dependence F12.20 [facility] [id number] [place] [address] 24571- 9541 Mar, Uncomplicated asthma, unspecified asthma severity J45.909 [facility] [address] [place] [address] 31560- 9045 Mar, [facility] [id number] [place] [address] 66114- 0476 Mar, Moderate persistent asthma without complication J45.40 ; Gastroesophageal reflux disease without esophagitis K21.9 and Cigarette nicotine dependence with other nicotine-induced disorder F17.218 [address] [id number] [place] [address] 64214- 5191 Feb, [id number] [place] [address] 09431- 9801 Jan, Bipolar disorder, unspecified F31.9 ; PTSD (post-traumatic stress disorder) F43.10 ; Panic disorder with agoraphobia F40.01 and Cannabis use disorder, moderate, dependence F12.20 [address] [id number] [place] [address] 22206- 7490 December, [address] [id number] [place] [address] 13286- 7501 Nov, [place] [id number] [place] [address] 79540- 2370 Nov, Bipolar disorder, unspecified F31.9 ; PTSD (post-traumatic stress disorder) F43.10 ; Panic disorder with agoraphobia F40.01 and Cannabis use disorder, moderate, dependence F12.20 [address] [place] [address] 12709- 1068 Oct, [place] [id number] [place] [address] 19675- 6892 Oct, [address] [id number] [place] [address] 44531- 1358 Sep, [address] [id number] [place] [address] 07176- 5025 Sep, Bipolar disorder, unspecified F31.9 ; PTSD (post-traumatic stress disorder) F43.10 ; Panic disorder with agoraphobia F40.01 and Cannabis use disorder, moderate, dependence F12.20 [address] [id number] [place] [address] 81661- 9582 Aug, [facility] [id number] [place] [address] 02335- 7056 Aug, [facility] [id number] [place] [address] 145165- 7857 Aug, Bipolar disorder, unspecified F31.9 ; PTSD (post-traumatic stress disorder) F43.10 ; Panic disorder with agoraphobia F40.01 and Cannabis use disorder, moderate, dependence F12.20 [facility] [id number] [place] [address] 48622- 3257 Jul, [facility] [id number] [place] [address] 706998- 0998 Apr, GERD (gastroesophageal reflux disease) 530.81 and Internal hemorrhoids 455.0 [address] [id number] [place] [address] 10158- 6394 Feb, Rectal bleeding 569.3 and Hemorrhoids 455.6 [facility] [id number] [place] [address] 91084- 9570 Jan, Sinusitis 473.9 and Otitis media 382.9 [facility] [id number] [place] [address] 55813- 5886 December, [facility] [id number] [place] [address] 94770- 9429 Nov, [facility] [id number] [place] [address] 50081- 9119 Nov, [facility] [address] [place] [address] 91393427- 9993 Oct, [facility] [id number] [place] [address] 744904- 0786 Oct, [facility] [address] [place] [address] 214792- 6786 Sep, [facility] [id number] [place] [address] 47798- 6343 04 Sep, 2014 [facility] [place] [facility] [address] [id number] [place] [address]- 1799 Aug, [facility] [place] [facility] [address] [id number] [place] [address]- 0890 Aug, [facility] [place] [facility] [address] [facility] [id number] [place] [address]- 0570 Jul, [facility] [place] [facility] [address] [id number] [place] [address]- 9813 Jul, [facility] [place] [facility] [address] [id number] [place] [address]- 3958 Jul, [facility] [place] [facility] [address] [id number] [place] [address]- 6992 Jul, [facility] [place] [facility] [address] [facility] [id number] [place] [address]- 8529 Jul, [facility] [place] [facility] [address] [id number] [place] [address]- 2684 Jul, [facility] [place] [facility] [address] [facility] [id number] [place] [address]- 2231 Jul, [facility] [place] [facility] [address] [facility] [id number] [place] [address]- 0522 Jul, [facility] [place] [facility] [address] [id number], [place] [address]- 6168 Jun, [facility] [place] [facility] [address] [id number], [place] [address]- 0040 Jun, [facility] [place] [facility] [address] [id number], [place] [address]- 3036 Jun, [facility] [place] [facility] [address] [facility] [id number], [place] [address]- 8404 Jun, [facility] [place] [facility] [address] [facility] [id number] [place] [address]- 8657 May, [facility] [place] [facility] [address] [id number] [place] [address] 2543 May, [facility] [place] [facility] [address] [id number] [place] [address]- 7905 May, [facility] [place] [facility] [address] [id number] [place] [address]- 2546 May, [facility] [place] [facility] [address] [id number] [place] [address]- 8773 Apr, [facility] [place] [facility] [address] [id number] [place] [address]- 6227 Apr, [facility] [place] [facility] [address] [id number] [place] [address]- 5291 Apr, [facility] [place] [facility] [address] [id number] [place] [address]- 2028 Apr, [facility] [place] [facility] [address] [id number] [place] [address]- 0052 Mar, [facility] [place] [facility] [address] [id number] [place] [address]- 4802 Mar, [facility] [place] [facility] [address] [id number] [place] [address]- 1065 Mar, [facility] [place] [facility] [address] [id number] [place] [address]- 1189 Mar, [facility] [place] [facility] [address] [id number] [place] [address]- 0429 December, [facility] [place] [facility] [address] [id number] [place] [address]- 7320 December, [facility] [place] [facility] [address] [id number] [place] [address]- 6346 Nov, [facility] [place] [facility] [address] [id number] [place] [address]- 6476 Nov, [facility] [place] [facility] [address] [id number] [place] [address]- 8036 Sep, [facility] [place] [facility] [address] [id number] [place] [address]- 8205 Sep, [facility] [place] [facility] [address] [id number] [place] [address]- 8752 Sep, [facility] [place] [facility] [address] [facility] [id number] [place] [address]- 5800 Sep, [facility] [place] [facility] [address] [id number] [place] [address]- 6636 Aug, [facility] [place] [facility] [address] [id number] [place] [address]- 0522 Jul, [facility] [place] [facility] [address] [id number] [place] [address]- 7623 Jul, [facility] [place] [facility] [address] [facility] [id number] [place] [address]- 9688 Jun, [facility] [place] [facility] [address] [id number] [place] [address]- 0976 Jun, [facility] [place] [facility] [address] [id number] [place] [address]- 0848 May, [facility] [place] [facility] [address] [id number] [place] [address]- 1740 May, [facility] [place] [facility] [address] [id number], [place] [address]- 6418 07 May, 2013 [facility] [place] [facility] [address] [id number], [place] [address]- 9261 17 Apr, 2012 [facility] [place] [facility] [address] [id number] [place] [address]- 3648 16 Apr, 2012 [facility] [place] [facility] [address] [facility] [id number] [place] [address]- 1288 09 Apr, 2013 [facility] [place] [facility] [address] [facility] [id number] [place] [address]- 4752 09 Apr, 2012 [facility] [place] [facility] [address] [id number] [place] [address]- 0063 30 Mar, 2013 [facility] [address] [id number] [place] [address]- 1132 Mar, [facility] [address] [id number] [place] [address] 2546 December, [facility] [address] [id number] [place] [address]- 0136 Oct, [facility] [address] [id number] [place] [address]- 4210 Oct, [facility] [address] [id number] [place] [address] Aug, [facility] [address] [id number] [place] [address] 17 Jul, 2012 [facility] [address] [id number] [place] [address] 17 Jul, 2012 [facility] [address] [id number] [place] [address] 13 Jul, 2012 [facility] [address] [id number] [place] [address] 13 Jul, 2012 [facility] [address] [id number] [place] [address] 14 Jun, 2012 [facility] [address] [id number] [place] [address] 14 Jun, 2012 [facility] [address] [id number] [place] [address] 14 Mar, 2012 [facility] [place] [facility] [address] [id number] [place] [address] 16 Feb, 2012 [facility] [address] [id number] [place] [address] 16 Feb, 2012 [facility] [address] [id number] [place] [address] December, [facility] [address] [id number] [place] [address] Nov, [facility] [place] [facility] [address] [id number] [place] [address] Oct, [facility] [place] [facility] [address] [id number] [place] [address] Oct, [facility] [place] [facility] [address] [address] [id number] [place] [address] Sep, [facility] [address] [id number] [place] [address] Sep, [facility] [place] [facility] [address] [id number] [place] [address] Aug, [facility] [place] [facility] [address] [id number] [place] [address] Aug, [facility] [address] [id number] [place] [address] Jul, [facility] [place] [facility] [address] [id number] [place] [address] Jul, [facility] [place] [facility] [address] [id number] [place] [address] Jul, [facility] [place] [facility] [address] [id number] [place] [address] Jun, [facility] [place] [facility] [address] [id number], [place] [address] May, [facility] [place] [facility] [address] [id number] [place] [address] Apr, [facility] [place] [facility] [address] [id number] [place] [address] 18 Feb, 2011 [facility] [place] [facility] [address] [id number] [place] [address] Sep, [facility] [place] [facility] [address] [id number] [id number] 22 Jul, 2010 [facility] [address] [id number] [address] Jul, [facility] [id number] [address] Jul, [facility] [id number], [place] [address] Jul, [facility] [id number] [address] Jun, [facility] [id number] [address] Feb, [facility] [id number], [place] [address] Jan, [facility] [id number], [place] [address] Feb, [facility] [address] [id number], [place] [address] Jul, IMMUNIZATIONS No Known Immunizations SOCIAL HISTORY Never Assessed REASON FOR VISIT Requests return call PLAN OF CARE VITAL SIGNS MEDICATIONS Unknown [...]
--- OUTSIDE RECORDS SUMMARY | 2018-06-08 16:03 | XMS REPORT ---
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 Name Role Phone KORY CHAND Unavailable PROBLEMS Type Condition ICD9-CM Code TAJ60-MI Code Onset Dates Condition Status SNOMED Code Problem Obstructive sleep apnea syndrome G47.33 Active 31261408 Problem Cannabis dependence F12.20 Active 05055807 Problem Anxiety, generalized F41.1 Active 35910213 Problem Other chronic pain G89.29 Active 09212182 Problem Adjustment disorder with depressed mood F43.21 Active 89479002 Problem Chronic post-traumatic stress disorder (PTSD) F43.12 Active 775599371 Problem Post-traumatic stress disorder F43.10 Active 07732342 Problem Adjustment disorder with anxious mood F43.22 Active 59718481 Problem Adjustment disorder with mixed anxiety and depressed mood F43.23 Active 37176548 Problem Bipolar disorder, unspecified F31.9 Active 47663793 Problem Gastroesophageal reflux disease without esophagitis K21.9 Active 632104607 Problem Cannabis use disorder, moderate, dependence F12.20 Active 16087068 Problem Cigarette nicotine dependence with other nicotine-induced disorder F17.218 Active 29035979 Problem Panic disorder with agoraphobia F40.01 Active 75786002 Problem Moderate persistent asthma without complication J45.40 Active 105650934 ALLERGIES No Information ENCOUNTERS Encounter Location Date Diagnosis [facility] [place] [facility] [id number] [address] Aug, [facility] [place] [facility] [address] [address] 8647 May, [facility] [place] [facility] [address], [place] [address] 9664 Apr, [facility] [place] [facility] [id number] [address] Apr, [address] [address] 3208 Apr, [place] [id number] [place] [address] 20390- 1384 Apr, [place] [id number] [place] [address] 00705- 9360 Apr, Bipolar disorder, unspecified F31.9 ; Panic disorder with agoraphobia F40.01 and Cannabis use disorder, moderate, dependence F12.20 [address] [place] [id number] [place] [address] 85457- 7800 Mar, [place] [id number] [place] [address] 25984- 5310 Mar, [place] [id number] [place] [address] 51855- 9836 Jan, Low back pain M54.5 ; Moderate persistent asthma without complication J45.40 and Other chronic pain G89.29 [id number] [place] [address] 84863- 2126 Jan, Moderate persistent asthma without complication J45.40 ; Low back pain M54.5 ; Other chronic pain G89.29 ; Gastroesophageal reflux disease without esophagitis K21.9 and Cigarette nicotine dependence with other nicotine-induced disorder F17.218 [address] [place] [address] 65369- 4585 December, Bipolar disorder, unspecified F31.9 ; Panic disorder with agoraphobia F40.01 ; Cannabis use disorder, moderate, dependence F12.20 and Chronic post-traumatic stress disorder (PTSD) F43.12 [place] [id number] [place] [address] 11484- 7094 December, [place] [id number] [place] [address] 30137- 8863 December, [place] [id number] [place] [address] 87501- 6788 Nov, [place] [address] [place] [address] 41919- 7124 Oct, Bipolar disorder, unspecified F31.9 ; Chronic post- traumatic stress disorder (PTSD) F43.12 ; Panic disorder with agoraphobia F40.01 and Cannabis use disorder, moderate, dependence F12.20 [address] [place] [id number] [place] [address] 14764- 5072 Sep, [place] [id number] [place] [address] 51289- 9206 Sep, [address] [address]- 6937 Aug, [place] [id number] [place] [address] 48104- 3305 Aug, Cannabis use disorder, moderate, dependence F12.20 ; Panic disorder with agoraphobia F40.01 and Bipolar affective disorder, currently depressed, moderate F31.32 [address] [id number] [place] [address] 28648- 7882 May, Diarrhea of presumed infectious origin A09 and Nausea and vomiting, intractability of vomiting not specified, unspecified vomiting type R11.2 [id number] [place] [address] 85026- 1735 Apr, [id number] [place] [address] 05324- 3856 Mar, Nausea R11.0 and Gastroenteritis K52.9 [id number] [place] [address] 79596- 9036 Mar, Gastroesophageal reflux disease without esophagitis K21.9 [id number] [place] [address] 77595- 5566 Mar, Gastroesophageal reflux disease without esophagitis K21.9 [id number] [place] [address] 89496- 1471 Mar, [address] [place] [address] 41005- 7340 Mar, [place] [id number] [place] [address] 18764- 0879 Mar, [place] [id number] [place] [address] 78787- 1057 Feb, Acute pain of right shoulder M25.511 and Muscle spasm M62.838 [address] [id number] [place] [address] 49658- 6515 Feb, Acute labyrinthitis, unspecified laterality H83.09 [place] [id number] [place] [address] 85589- 8956 December, [place] [id number] [place] [address] 83546- 8194 December, [place] [id number] [place] [address] 43590- 7318 December, Cannabis use disorder, moderate, dependence F12.20 ; Anxiety , generalized F41.1 ; Adjustment disorder with mixed anxiety and depressed mood F43.23 and Chronic post-traumatic stress disorder (PTSD) F43.12 [address] [place] [address] 64637- 8456 December, [id number] [place] [address] 04875- 7497 December, [place] [id number] [place] [address] 25771- 5442 Nov, Acute nasopharyngitis J00 [id number] [place] [address] 25651- 7939 Nov, Cannabis use disorder, moderate, dependence F12.20 ; Anxiety , generalized F41.1 ; Adjustment disorder with mixed anxiety and depressed mood F43.23 and Chronic post-traumatic stress disorder (PTSD) F43.12 [place] [id number] [place] [address] 16724- 6556 Nov, Cannabis use disorder, moderate, dependence F12.20 ; Anxiety , generalized F41.1 ; Adjustment disorder with mixed anxiety and depressed mood F43.23 and Chronic post-traumatic stress disorder (PTSD) F43.12 [address] [place] [address]86 31 Oct, 2016 Diarrhea, unspecified R19.7 ; Vomiting, unspecified R11.10 and Viral gastroenteritis A08.4 [id number] [place] [address] 29 Oct, 2016 Bipolar disorder, unspecified F31.9 ; Panic disorder with agoraphobia F40.01 ; Cannabis use disorder, moderate, dependence F12.20 ; Cigarette nicotine dependence with other nicotine-induced disorder F17.218 ; Anxiety, generalized F41.1 ; Post-traumatic stress disorder F43.10 and Adjustment disorder with mixed anxiety and depressed mood F43.23 [id number] [place] [address] 26500- 6009 Oct, Bipolar disorder, unspecified F31.9 ; Chronic post- traumatic stress disorder (PTSD) F43.12 ; Panic disorder with agoraphobia F40.01 and Cannabis use disorder, moderate, dependence F12.20 [address] [place] [address] 04841- 3715 Oct, Bipolar disorder, unspecified F31.9 ; Panic disorder with agoraphobia F40.01 ; Cannabis use disorder, moderate, dependence F12.20 ; Cigarette nicotine dependence with other nicotine-induced disorder F17.218 ; Anxiety, generalized F41.1 ; Post-traumatic stress disorder F43.10 and Adjustment disorder with mixed anxiety and depressed mood F43.23 [id number] [place] [address] 6613 14 Oct, 2016 Viral gastroenteritis A08.4 [id number] [place] [address] 7136 09 Oct, 2016 Anxiety, generalized F41.1 ; Post-traumatic stress disorder F43.10 ; Adjustment disorder with depressed mood F43.21 and Adjustment disorder with anxious mood F43.22 [address] [place] [address] 23747- 8608 Oct, Panic disorder with agoraphobia F40.01 ; Cannabis use disorder, moderate, dependence F12.20 ; Bipolar disorder, unspecified F31.9 ; Cigarette nicotine dependence with other nicotine-induced disorder F17.218 ; Adjustment disorder with anxious mood F43.22 ; Anxiety, generalized F41.1 ; Post -traumatic stress disorder F43.10 and Cannabis dependence F12.20 [id number] [place] [address] 36942- 0424 Oct, Bipolar disorder, unspecified F31.9 and Chronic post- traumatic stress disorder (PTSD) F43.12 [id number] [place] [address] 91983- 9154 Oct, Bipolar disorder, unspecified F31.9 and Chronic post- traumatic stress disorder (PTSD) F43.12 [id number] [place] [address] 31001- 9709 Sep, Bipolar disorder, unspecified F31.9 ; Panic disorder with agoraphobia F40.01 ; PTSD (post-traumatic stress disorder) F43.10 ; Cannabis use disorder, moderate, dependence F12.20 ; Cannabis dependence F12.20 and Anxiety, generalized F41.1 [id number] [place] [address] 88320- 1659 Sep, Cannabis use disorder, moderate, dependence F12.20 ; Anxiety , generalized F41.1 and Adjustment disorder with mixed anxiety and depressed mood F43.23 [address] [place] [address] 97932- 1317 15 Sep, 2016 Bipolar disorder, unspecified F31.9 ; Panic disorder with agoraphobia F40.01 ; PTSD (post-traumatic stress disorder) F43.10 ; Cannabis use disorder, moderate, dependence F12.20 ; Cannabis dependence F12.20 and Anxiety, generalized F41.1 [id number] [place] [address] 73448- 4586 Sep, Bipolar disorder, unspecified F31.9 ; Panic disorder with agoraphobia F40.01 ; PTSD (post-traumatic stress disorder) F43.10 ; Cannabis use disorder, moderate, dependence F12.20 ; Cannabis dependence F12.20 and Anxiety, generalized F41.1 [address] [place] [id number] [place] [address] 5942 Sep, Bipolar disorder, unspecified F31.9 ; Post-traumatic stress disorder F43.10 and Cannabis dependence F12.20 [address] [place] [address] Sep, [place] [address]- 5389 Sep, Suicidal behavior without attempted self-injury R46.89 [id number] [place] [address] 986235- 6914 Sep, [place] [id number] [place] [address] 39025- 3762 Sep, Cannabis use disorder, moderate, dependence F12.20 ; Panic disorder with agoraphobia F40.01 ; Bipolar disorder, unspecified F31.9 and Anxiety, generalized F41.1 [address] [place] [address] 05670- 8713 Sep, Bipolar disorder, unspecified F31.9 ; PTSD (post-traumatic stress disorder) F43.10 ; Panic disorder with agoraphobia F40.01 and Cannabis use disorder, moderate, dependence F12.20 [address] [place] [id number] [place] [address] 35520- 2000 Sep, [address] 93199- 8562 Sep, PTSD (post-traumatic stress disorder) F43.10 ; Cannabis use disorder, moderate, dependence F12.20 and Suicidal risk R45.89 [address] [place] [id number] [place] [address]- 2546 Sep, [facility] [facility] [address] [place] [address] 51020- 3778 Jul, Bipolar disorder, unspecified F31.9 ; PTSD (post-traumatic stress disorder) F43.10 and Panic disorder with agoraphobia F40.01 [facility] [address] [place] [address] 62500- 0834 Jul, Obstructive sleep apnea syndrome G47.33 ; Moderate persistent asthma without complication J45.40 and Cigarette nicotine dependence with other nicotine-induced disorder F17.218 [facility] [id number] [place] [address] 68024- 8034 Jul, [facility] [id number] [place] [address] 04757- 5370 Jul, [facility] [id number] [place] [address] 95238- 1237 May, [facility] [id number] [place] [address] 31341- 1057 May, [facility] [id number] [place] [address] 65959- 0044 May, [facility] [address] [place] [address] 20841- 4566 Apr, [facility] [id number] [place] [address] 14798- 6251 Apr, Bipolar disorder, unspecified F31.9 ; PTSD (post-traumatic stress disorder) F43.10 ; Panic disorder with agoraphobia F40.01 and Cannabis use disorder, moderate, dependence F12.20 [facility] [id number] [place] [address] 93978- 3807 Mar, Uncomplicated asthma, unspecified asthma severity J45.909 [facility] [address] [place] [address] 80568- 1017 Mar, [facility] [id number] [place] [address] 47354- 3568 Mar, Moderate persistent asthma without complication J45.40 ; Gastroesophageal reflux disease without esophagitis K21.9 and Cigarette nicotine dependence with other nicotine-induced disorder F17.218 [address] [id number] [place] [address] 27528- 0117 Feb, [place] [id number] [place] [address] 25665- 4978 Jan, Bipolar disorder, unspecified F31.9 ; PTSD (post-traumatic stress disorder) F43.10 ; Panic disorder with agoraphobia F40.01 and Cannabis use disorder, moderate, dependence F12.20 [address] [id number] [place] [address] 33788- 0964 December, [place] [id number] [place] [address] 14454- 3986 Nov, [place] [id number] [place] [address] 58105- 2388 Nov, Bipolar disorder, unspecified F31.9 ; PTSD (post-traumatic stress disorder) F43.10 ; Panic disorder with agoraphobia F40.01 and Cannabis use disorder, moderate, dependence F12.20 [address] [place] [address] 59763- 4410 Oct, [place] [id number] [place] [address] 44234- 3522 Oct, [place] [id number] [place] [address] 26112- 4181 Sep, [place] [id number] [place] [address] 88846- 5199 Sep, Bipolar disorder, unspecified F31.9 ; PTSD (post-traumatic stress disorder) F43.10 ; Panic disorder with agoraphobia F40.01 and Cannabis use disorder, moderate, dependence F12.20 [address] [place] [id number] [place] [address] 87682- 9305 Aug, [facility] [id number] [place] [address] 02700- 0720 Aug, [facility] [facility] [id number] [place] [address] 319399- 2097 Aug, Bipolar disorder, unspecified F31.9 ; PTSD (post-traumatic stress disorder) F43.10 ; Panic disorder with agoraphobia F40.01 and Cannabis use disorder, moderate, dependence F12.20 [facility] [facility] [id number] [place] [address] 46000- 4396 Jul, [facility] [facility] [id number] [place] [address] 729904- 5961 Apr, GERD (gastroesophageal reflux disease) 530.81 and Internal hemorrhoids 455.0 [address] [place] [id number] [place] [address] 06960- 4792 Feb, Rectal bleeding 569.3 and Hemorrhoids 455.6 [facility] [facility] [id number] [place] [address] 20079- 2745 Jan, Sinusitis 473.9 and Otitis media 382.9 [facility] [facility] [id number] [place] [address] 25431- 8411 December, [facility] [facility] [id number] [place] [address] 48263- 7427 Nov, [facility] [facility] [id number] [place] [address] 04428- 2518 Nov, [facility] [facility] [address] [place] [address] 24157509- 0284 Oct, [facility] [facility] [id number] [place] [address] 684272- 7716 Oct, [facility] [facility] [address] [place] [address] 538255- 0506 Sep, [facility] [facility] [id number] [place] [address] 44065- 6275 04 Sep, 2014 [facility] [place] [facility] [address] [id number] [place] [address]- 5527 Aug, [facility] [place] [facility] [address] [id number] [place] [address]- 3054 Aug, [facility] [place] [facility] [address] [facility] [id number] [place] [address]- 7062 Jul, [facility] [place] [facility] [address] [id number] [place] [address]- 0072 Jul, [facility] [place] [facility] [address] [id number] [place] [address]- 6267 Jul, [facility] [place] [facility] [address] [id number] [place] [address]- 0815 Jul, [facility] [place] [facility] [address] [facility] [id number] [place] [address]- 8428 Jul, [facility] [place] [facility] [address] [id number] [place] [address]- 2240 Jul, [facility] [place] [facility] [address] [facility] [id number] [place] [address]- 1715 Jul, [facility] [place] [facility] [address] [facility] [id number] [place] [address]- 5578 Jul, [facility] [place] [facility] [address] [id number], [place] [address]- 3118 Jun, [facility] [place] [facility] [address] [id number], [place] [address]- 8607 Jun, [facility] [place] [facility] [address] [id number], [place] [address]- 1457 Jun, [facility] [place] [facility] [address] [facility] [id number], [place] [address]- 4126 Jun, [facility] [place] [facility] [address] [facility] [id number] [place] [address]- 1587 May, [facility] [place] [facility] [address] [id number] [place] [address] 2540 May, [facility] [place] [facility] [address] [id number] [place] [address]- 9714 May, [facility] [place] [facility] [address] [id number] [place] [address]- 2546 May, [facility] [place] [facility] [address] [id number] [place] [address]- 0906 Apr, [facility] [place] [facility] [address] [id number] [place] [address]- 6030 Apr, [facility] [place] [facility] [address] [id number] [place] [address]- 6026 Apr, [facility] [place] [facility] [address] [id number] [place] [address]- 2710 Apr, [facility] [place] [facility] [address] [id number] [place] [address]- 9521 Mar, [facility] [place] [facility] [address] [id number] [place] [address]- 1502 Mar, [facility] [place] [facility] [address] [id number] [place] [address]- 3336 Mar, [facility] [place] [facility] [address] [id number] [place] [address]- 8782 Mar, [facility] [place] [facility] [address] [id number] [place] [address]- 8220 December, [facility] [place] [facility] [address] [id number] [place] [address]- 3577 December, [facility] [place] [facility] [address] [id number] [place] [address]- 7158 Nov, [facility] [place] [facility] [address] [id number] [place] [address]- 8106 Nov, [facility] [place] [facility] [address] [id number] [place] [address]- 4766 Sep, [facility] [place] [facility] [address] [id number] [place] [address]- 5548 Sep, [facility] [place] [facility] [address] [id number] [place] [address]- 2499 Sep, [facility] [place] [facility] [address] [facility] [id number] [place] [address]- 2888 Sep, [facility] [place] [facility] [address] [id number] [place] [address]- 7209 Aug, [facility] [place] [facility] [address] [id number] [place] [address]- 3127 Jul, [facility] [place] [facility] [address] [id number] [place] [address]- 5226 Jul, [facility] [place] [facility] [address] [facility] [id number] [place] [address]- 0255 Jun, [facility] [place] [facility] [address] [id number] [place] [address]- 9706 Jun, [facility] [place] [facility] [address] [id number] [place] [address]- 0748 May, [facility] [place] [facility] [address] [id number] [place] [address]- 5570 May, [facility] [place] [facility] [address] [id number], [place] [address]- 1080 07 May, 2013 [facility] [place] [facility] [address] [id number], [place] [address]- 9906 17 Apr, 2012 [facility] [place] [facility] [address] [id number] [place] [address]- 2647 16 Apr, 2012 [facility] [place] [facility] [address] [facility] [id number] [place] [address]- 0844 09 Apr, 2013 [facility] [place] [facility] [address] [facility] [id number] [place] [address]- 8097 09 Apr, 2012 [facility] [place] [facility] [address] [id number] [place] [address]- 3924 30 Mar, 2013 [facility] [address] [id number] [place] [address]- 2751 Mar, [facility] [address] [id number] [place] [address] 2546 December, [facility] [address] [id number] [place] [address] Oct, [facility] [address] [id number] [place] [address] Oct, [facility] [address] [id number] [place] [address] Aug, [facility] [address] [id number] [place] [address] 17 Jul, 2012 [facility] [address] [id number] [place] [address] 17 Jul, 2012 [facility] [address] [id number] [place] [address] 13 Jul, 2012 [facility] [address] [id number] [place] [address] 13 Jul, 2012 [facility] [address] [id number] [place] [address] 14 Jun, 2012 [facility] [address] [id number] [place] [address] 14 Jun, 2012 [facility] [address] [id number] [place] [address] 14 Mar, 2012 [facility] [place] [facility] [address] [id number] [place] [address] 16 Feb, 2012 [facility] [address] [id number] [place] [address] 16 Feb, 2012 [facility] [address] [id number] [place] [address] December, [facility] [address] [id number] [place] [address] Nov, [facility] [place] [facility] [address] [id number] [place] [address] Oct, [facility] [place] [facility] [address] [id number] [place] [address] Oct, [facility] [place] [facility] [address] [id number] [place] [address] Sep, [facility] [address] [id number] [place] [address] Sep, [facility] [place] [facility] [address] [id number] [place] [address] Aug, [facility] [place] [facility] [address] [id number] [place] [address] Aug, [facility] [address] [id number] [place] [address] Jul, [facility] [place] [facility] [address] [id number] [place] [address] Jul, [facility] [place] [facility] [address] [id number] [place] [address] Jul, [facility] [place] [facility] [address] [id number] [place] [address] Jun, [facility] [place] [facility] [address] [id number] [address] May, [facility] [place] [facility] [address] [id number] [place] [address] Apr, [facility] [place] [facility] [address] [id number] [place] [address] 18 Feb, 2011 [facility] [place] [facility] [address] [id number] [place] [address] Sep, [facility] [place] [facility] [address] [id number] [address] 22 Jul, 2010 [facility] [place] [facility] [address] [id number] [address] Jul, [facility] [place] [facility] [id number] [address] Jul, [facility] [place] [facility] [id number] [address] Jul, [facility] [place] [facility] [id number] [address] Jun, [facility] [place] [facility] [id number] [address] Feb, [facility] [place] [facility] [id number] [address] Jan, [facility] [place] [facility] [id number] [address] Feb, [facility] [place] [facility] [address] [id number] [address] Jul, IMMUNIZATIONS No Known Immunizations SOCIAL HISTORY Never Assessed REASON FOR VISIT medication PLAN OF CARE VITAL SIGNS MEDICATIONS Medication Instructions Dosage Frequency Start Date End Date Duration Status Risperidone 2 MG Orally at bedtime for mood 1/2 tablet Apr, Active RESULTS No Results PROCEDURES [...]
--- OUTSIDE RECORDS SUMMARY | 2018-06-08 16:04 | XMS REPORT ---
Author Author PETRA GARZON Organization [facility] Address [address] [place] [address] Care Team Providers Care Polisher And Buffer Name Role Phone PETRA GARZON Unavailable PROBLEMS Type Condition ICD9-CM Code LXP40-WQ Code Onset Dates Condition Status SNOMED Code Problem Obstructive sleep apnea syndrome G47.33 Active 64352011 Problem Cannabis dependence F12.20 Active 95482022 Problem Anxiety, generalized F41.1 Active 86648066 Problem Other chronic pain G89.29 Active 52579167 Problem Adjustment disorder with depressed mood F43.21 Active 18450921 Problem Chronic post-traumatic stress disorder (PTSD) F43.12 Active 456332479 Problem Post-traumatic stress disorder F43.10 Active 67780647 Problem Adjustment disorder with anxious mood F43.22 Active 40727130 Problem Adjustment disorder with mixed anxiety and depressed mood F43.23 Active 90762382 Problem Bipolar disorder, unspecified F31.9 Active 85527681 Problem Gastroesophageal reflux disease without esophagitis K21.9 Active 167959076 Problem Cannabis use disorder, moderate, dependence F12.20 Active 32808647 Problem Cigarette nicotine dependence with other nicotine-induced disorder F17.218 Active 47483209 Problem Panic disorder with agoraphobia F40.01 Active 19337334 Problem Moderate persistent asthma without complication J45.40 Active [id number] ALLERGIES No Information ENCOUNTERS Encounter Location Date Diagnosis [facility] [id number] [address] Aug, [facility] [address], [place] [address] May, [facility] [address], [place] [address] 5547 Apr, [facility] [id number], [place] [address] Apr, [address], [place] [address] 9626 Apr, [id number] [place] [address] 09413- 1292 Apr, [id number] [place] [address] 88985- 2453 Apr, Bipolar disorder, unspecified F31.9 ; Panic disorder with agoraphobia F40.01 and Cannabis use disorder, moderate, dependence F12.20 [id number] [place] [address] 62436- 5449 Mar, [id number] [place] [address] 19683- 6744 Mar, [id number] [place] [address] 73204- 2064 Jan, Low back pain M54.5 ; Moderate persistent asthma without complication J45.40 and Other chronic pain G89.29 [address] [id number] [place] [address] 79183- 4267 Jan, Moderate persistent asthma without complication J45.40 ; Low back pain M54.5 ; Other chronic pain G89.29 ; Gastroesophageal reflux disease without esophagitis K21.9 and Cigarette nicotine dependence with other nicotine-induced disorder F17.218 [id number] [place] [address] 76064- 8829 December, Bipolar disorder, unspecified F31.9 ; Panic disorder with agoraphobia F40.01 ; Cannabis use disorder, moderate, dependence F12.20 and Chronic post-traumatic stress disorder (PTSD) F43.12 [address] [id number] [place] [address] 66823- 7145 December, [id number] [place] [address] 27726- 0686 December, [id number] [place] [address] 28871- 4964 Nov, [id number] [place] [address] 11760- 4966 Oct, Bipolar disorder, unspecified F31.9 ; Chronic post- traumatic stress disorder (PTSD) F43.12 ; Panic disorder with agoraphobia F40.01 and Cannabis use disorder, moderate, dependence F12.20 [id number] [place] [address] 76818- 5377 Sep, [address] [id number] [place] [address] 62843- 2844 Sep, [address] [address]- 4354 Aug, [address] [id number] [place] [address] 11923- 2537 Aug, Cannabis use disorder, moderate, dependence F12.20 ; Panic disorder with agoraphobia F40.01 and Bipolar affective disorder, currently depressed, moderate F31.32 [id number] [place] [address] 21100- 0679 May, Diarrhea of presumed infectious origin A09 and Nausea and vomiting, intractability of vomiting not specified, unspecified vomiting type R11.2 [id number] [place] [address] 74173- 6868 Apr, [id number] [place] [address] 77482- 7441 Mar, Nausea R11.0 and Gastroenteritis K52.9 [id number] [place] [address] 41972- 5326 Mar, Gastroesophageal reflux disease without esophagitis K21.9 [id number] [place] [address] 75491- 0476 Mar, Gastroesophageal reflux disease without esophagitis K21.9 [id number] [place] [address] 15095- 3680 Mar, [id number] [place] [address] 67401- 9334 Mar, [address] [id number] [place] [address] 04078- 3725 Mar, [id number] [place] [address] 45006- 6986 Feb, Acute pain of right shoulder M25.511 and Muscle spasm M62.838 [id number] [place] [address] 61152- 5375 Feb, Acute labyrinthitis, unspecified laterality H83.09 [address] [place] [id number] [place] [address] 28617- 1464 December, [address] [place] [id number] [place] [address] 25338- 3749 December, [address] [id number] [place] [address] 35021- 2493 December, Cannabis use disorder, moderate, dependence F12.20 ; Anxiety , generalized F41.1 ; Adjustment disorder with mixed anxiety and depressed mood F43.23 and Chronic post-traumatic stress disorder (PTSD) F43.12 [id number] [place] [address] 09933- 2864 December, [address] [id number] [place] [address] 56075- 2624 December, [address] [id number] [place] [address] 40968- 6319 Nov, Acute nasopharyngitis J00 [id number] [place] [address] 31613- 2654 Nov, Cannabis use disorder, moderate, dependence F12.20 ; Anxiety , generalized F41.1 ; Adjustment disorder with mixed anxiety and depressed mood F43.23 and Chronic post-traumatic stress disorder (PTSD) F43.12 [id number] [place] [address] 04536- 5746 Nov, Cannabis use disorder, moderate, dependence F12.20 ; Anxiety , generalized F41.1 ; Adjustment disorder with mixed anxiety and depressed mood F43.23 and Chronic post-traumatic stress disorder (PTSD) F43.12 [id number] [place] [address]- [address]81 31 Oct, 2016 Diarrhea, unspecified R19.7 ; Vomiting, unspecified R11.10 and Viral gastroenteritis A08.4 [id number] [place] [address]- [address] 29 Oct, 2016 Bipolar disorder, unspecified F31.9 ; Panic disorder with agoraphobia F40.01 ; Cannabis use disorder, moderate, dependence F12.20 ; Cigarette nicotine dependence with other nicotine-induced disorder F17.218 ; Anxiety, generalized F41.1 ; Post-traumatic stress disorder F43.10 and Adjustment disorder with mixed anxiety and depressed mood F43.23 [id number] [place] [address] 63904- 2132 Oct, Bipolar disorder, unspecified F31.9 ; Chronic post- traumatic stress disorder (PTSD) F43.12 ; Panic disorder with agoraphobia F40.01 and Cannabis use disorder, moderate, dependence F12.20 [address] [place] [address] 93288- 5301 Oct, Bipolar disorder, unspecified F31.9 ; Panic disorder with agoraphobia F40.01 ; Cannabis use disorder, moderate, dependence F12.20 ; Cigarette nicotine dependence with other nicotine-induced disorder F17.218 ; Anxiety, generalized F41.1 ; Post-traumatic stress disorder F43.10 and Adjustment disorder with mixed anxiety and depressed mood F43.23 [id number] [place] [address] 2168 14 Oct, 2016 Viral gastroenteritis A08.4 [id number] [place] [address]505 09 Oct, 2016 Anxiety, generalized F41.1 ; Post-traumatic stress disorder F43.10 ; Adjustment disorder with depressed mood F43.21 and Adjustment disorder with anxious mood F43.22 [address] [place] [address] 70506- 7890 Oct, Panic disorder with agoraphobia F40.01 ; Cannabis use disorder, moderate, dependence F12.20 ; Bipolar disorder, unspecified F31.9 ; Cigarette nicotine dependence with other nicotine-induced disorder F17.218 ; Adjustment disorder with anxious mood F43.22 ; Anxiety, generalized F41.1 ; Post -traumatic stress disorder F43.10 and Cannabis dependence F12.20 [id number] [place] [address] 20485- 9710 Oct, Bipolar disorder, unspecified F31.9 and Chronic post- traumatic stress disorder (PTSD) F43.12 [id number] [place] [address] 55272- 8437 Oct, Bipolar disorder, unspecified F31.9 and Chronic post- traumatic stress disorder (PTSD) F43.12 [id number] [place] [address] 17602- 6539 Sep, Bipolar disorder, unspecified F31.9 ; Panic disorder with agoraphobia F40.01 ; PTSD (post-traumatic stress disorder) F43.10 ; Cannabis use disorder, moderate, dependence F12.20 ; Cannabis dependence F12.20 and Anxiety, generalized F41.1 [id number] [place] [address] 34376- 1792 Sep, Cannabis use disorder, moderate, dependence F12.20 ; Anxiety , generalized F41.1 and Adjustment disorder with mixed anxiety and depressed mood F43.23 [address] [place] [address] 93880- 6996 15 Sep, 2016 Bipolar disorder, unspecified F31.9 ; Panic disorder with agoraphobia F40.01 ; PTSD (post-traumatic stress disorder) F43.10 ; Cannabis use disorder, moderate, dependence F12.20 ; Cannabis dependence F12.20 and Anxiety, generalized F41.1 [id number] [place] [address] 88337- 9615 Sep, Bipolar disorder, unspecified F31.9 ; Panic disorder with agoraphobia F40.01 ; PTSD (post-traumatic stress disorder) F43.10 ; Cannabis use disorder, moderate, dependence F12.20 ; Cannabis dependence F12.20 and Anxiety, generalized F41.1 [id number] [place] 9994 Sep, Bipolar disorder, unspecified F31.9 ; Post-traumatic stress disorder F43.10 and Cannabis dependence F12.20 [address] [place] [address] Sep, [place] [address]- 8046 Sep, Suicidal behavior without attempted self-injury R46.89 [id number] [place] [address] 719018- 7242 Sep, [id number] [place] [address] 17819- 6271 Sep, Cannabis use disorder, moderate, dependence F12.20 ; Panic disorder with agoraphobia F40.01 ; Bipolar disorder, unspecified F31.9 and Anxiety, generalized F41.1 [address] [place] [address] 77829- 2744 Sep, Bipolar disorder, unspecified F31.9 ; PTSD (post-traumatic stress disorder) F43.10 ; Panic disorder with agoraphobia F40.01 and Cannabis use disorder, moderate, dependence F12.20 [id number] [place] [address] 87997- 9682 Sep, [address] 69630- 4776 Sep, PTSD (post-traumatic stress disorder) F43.10 ; Cannabis use disorder, moderate, dependence F12.20 and Suicidal risk R45.89 [id number] [place] [address] 2546 Sep, [facility] [address] [place] [address] 72888- 2259 Jul, Bipolar disorder, unspecified F31.9 ; PTSD (post-traumatic stress disorder) F43.10 and Panic disorder with agoraphobia F40.01 [facility] [address] [place] [address] 22025- 2424 Jul, Obstructive sleep apnea syndrome G47.33 ; Moderate persistent asthma without complication J45.40 and Cigarette nicotine dependence with other nicotine-induced disorder F17.218 [facility] [id number] [place] [address] 84006- 5108 Jul, [facility] [id number] [place] [address] 27896- 7621 Jul, [facility] [id number] [place] [address] 10008- 0182 May, [facility] [id number] [place] [address] 92403- 4337 May, [facility] [id number] [place] [address] 56965- 5443 May, [facility] [id number] [place] [address] 76735- 8513 Apr, [facility] [id number] [place] [address] 05725- 7125 Apr, Bipolar disorder, unspecified F31.9 ; PTSD (post-traumatic stress disorder) F43.10 ; Panic disorder with agoraphobia F40.01 and Cannabis use disorder, moderate, dependence F12.20 [facility] [id number] [place] [address] 63716- 9300 Mar, Uncomplicated asthma, unspecified asthma severity J45.909 [facility] [address] [place] [address] 50084- 4832 Mar, [facility] [id number] [place] [address] 67190- 2915 Mar, Moderate persistent asthma without complication J45.40 ; Gastroesophageal reflux disease without esophagitis K21.9 and Cigarette nicotine dependence with other nicotine-induced disorder F17.218 [id number] [place] [address] 08778- 0922 Feb, [id number] [place] [address] 98759- 6883 Jan, Bipolar disorder, unspecified F31.9 ; PTSD (post-traumatic stress disorder) F43.10 ; Panic disorder with agoraphobia F40.01 and Cannabis use disorder, moderate, dependence F12.20 [address] [id number] [place] [address] 08122- 2374 December, [address] [id number] [place] [address] 66272- 8601 Nov, [address] [id number] [place] [address] 82858- 7316 Nov, Bipolar disorder, unspecified F31.9 ; PTSD (post-traumatic stress disorder) F43.10 ; Panic disorder with agoraphobia F40.01 and Cannabis use disorder, moderate, dependence F12.20 [address] [place] [address] 62687- 7369 Oct, [address] [id number] [place] [address] 52677- 2703 Oct, [address] [id number] [place] [address] 82995- 8090 Sep, [address] [id number] [place] [address] 34916- 6622 Sep, Bipolar disorder, unspecified F31.9 ; PTSD (post-traumatic stress disorder) F43.10 ; Panic disorder with agoraphobia F40.01 and Cannabis use disorder, moderate, dependence F12.20 [address] [place] [id number] [place] [address] 47589- 7735 Aug, [facility] [id number] [place] [address] 54473- 0055 Aug, [facility] [id number] [place] [address] 896453- 6791 Aug, Bipolar disorder, unspecified F31.9 ; PTSD (post-traumatic stress disorder) F43.10 ; Panic disorder with agoraphobia F40.01 and Cannabis use disorder, moderate, dependence F12.20 [facility] [id number] [place] [address] 28084- 2571 Jul, [facility] [id number] [place] [address] 140304- 6659 Apr, GERD (gastroesophageal reflux disease) 530.81 and Internal hemorrhoids 455.0 [id number] [place] [address] 58619- 8341 Feb, Rectal bleeding 569.3 and Hemorrhoids 455.6 [facility] [id number] [place] [address] 32743- 4418 Jan, Sinusitis 473.9 and Otitis media 382.9 [facility] [id number] [place] [address] 34138- 6991 December, [facility] [id number] [place] [address] 48200- 2002 Nov, [facility] [id number] [place] [address] 22520- 9279 Nov, [facility] [address] [place] [address] 05974079- 9975 Oct, [facility] [id number] [place] [address] 064907- 2246 Oct, [facility] [address] [place] [address] 910048- 8156 Sep, [facility] [id number] [place] [address] 99821- 1463 04 Sep, 2014 [facility] [place] [facility] [address] [id number] [place] [address]- 2544 Aug, [facility] [place] [facility] [address] [id number] [place] [address]- 0029 Aug, [facility] [place] [facility] [address] [facility] [id number] [place] [address]- 3778 Jul, [facility] [place] [facility] [address] [id number] [place] [address]- 0776 Jul, [facility] [place] [facility] [address] [id number] [place] [address]- 5387 Jul, [facility] [place] [facility] [address] [id number] [place] [address]- 7182 Jul, [facility] [place] [facility] [address] [facility] [id number] [place] [address]- 8723 Jul, [facility] [place] [facility] [address] [id number] [place] [address]- 5356 Jul, [facility] [place] [facility] [address] [facility] [id number] [place] [address]- 4451 Jul, [facility] [place] [facility] [address] [facility] [id number] [place] [address]- 3473 Jul, [facility] [place] [facility] [address] [id number], [place] [address]- 1425 Jun, [facility] [place] [facility] [address] [id number], [place] [address]- 7392 Jun, [facility] [place] [facility] [address] [id number], [place] [address]- 6636 Jun, [facility] [place] [facility] [address] [facility] [id number], [place] [address]- 4004 Jun, [facility] [place] [facility] [address] [facility] [id number] [place] [address]- 1590 May, [facility] [place] [facility] [address] [id number] [place] [address] 2544 May, [facility] [place] [facility] [address] [id number] [place] [address]- 9388 May, [facility] [place] [facility] [address] [id number] [place] [address]- 2546 May, [facility] [place] [facility] [address] [id number] [place] [address]- 3104 Apr, [facility] [place] [facility] [address] [id number] [place] [address]- 9300 Apr, [facility] [place] [facility] [address] [id number] [place] [address]- 6285 Apr, [facility] [place] [facility] [address] [id number] [place] [address]- 9319 Apr, [facility] [place] [facility] [address] [id number] [place] [address]- 7189 Mar, [facility] [place] [facility] [address] [id number] [place] [address]- 1567 Mar, [facility] [place] [facility] [address] [id number] [place] [address]- 9550 Mar, [facility] [place] [facility] [address] [id number] [place] [address]- 3893 Mar, [facility] [place] [facility] [address] [id number] [place] [address]- 6977 December, [facility] [place] [facility] [address] [id number] [place] [address]- 8510 December, [facility] [place] [facility] [address] [id number] [place] [address]- 7699 Nov, [facility] [place] [facility] [address] [id number] [place] [address]- 7146 Nov, [facility] [place] [facility] [address] [id number] [place] [address]- 8533 Sep, [facility] [place] [facility] [address] [id number] [place] [address]- 0379 Sep, [facility] [place] [facility] [address] [id number] [place] [address]- 9337 Sep, [facility] [place] [facility] [address] [facility] [id number] [place] [address]- 2135 Sep, [facility] [place] [facility] [address] [id number] [place] [address]- 6600 Aug, [facility] [place] [facility] [address] [id number] [place] [address]- 1092 Jul, [facility] [place] [facility] [address] [id number] [place] [address]- 8742 Jul, [facility] [place] [facility] [address] [facility] [id number] [place] [address]- 5049 Jun, [facility] [place] [facility] [address] [id number] [place] [address]- 5292 Jun, [facility] [place] [facility] [address] [id number] [place] [address]- 6641 May, [facility] [place] [facility] [address] [id number] [place] [address]- 9138 May, [facility] [place] [facility] [address] [id number], [place] [address]- 0821 07 May, 2013 [facility] [place] [facility] [address] [id number], [place] [address]- 1739 17 Apr, 2012 [facility] [place] [facility] [address] [id number] [place] [address]- 5656 16 Apr, 2012 [facility] [place] [facility] [address] [facility] [id number] [place] [address]- 1292 09 Apr, 2013 [facility] [place] [facility] [address] [facility] [id number] [place] [address]- 3570 09 Apr, 2012 [facility] [place] [facility] [address] [id number] [place] [address]- 6101 30 Mar, 2013 [facility] [address] [id number] [place] [address]- 0418 Mar, [facility] [address] [id number] [place] [address] 2546 December, [facility] [address] [id number] [place] [address]- 6656 Oct, [facility] [address] [id number] [place] [address]- 1140 Oct, [facility] [address] [id number] [place] [address]- 2739 Aug, [facility] [address] [id number] [place] [address] 17 Jul, 2012 [facility] [address] [id number] [place] [address] 17 Jul, 2012 [facility] [address] [id number] [place] [address] 13 Jul, 2012 [facility] [address] [id number] [place] [address] 13 Jul, 2012 [facility] [address] [id number] [place] [address] 14 Jun, 2012 [facility] [address] [id number] [place] [address] 14 Jun, 2012 [facility] [address] [id number] [place] [address] 14 Mar, 2012 [facility] [place] [facility] [address] [id number] [place] [address] 16 Feb, 2012 [facility] [address] [id number] [place] [address] 16 Feb, 2012 [facility] [address] [id number] [place] [address] December, [facility] [address] [id number] [place] [address] Nov, [facility] [place] [facility] [address] [id number] [place] [address] Oct, [facility] [place] [facility] [address] [id number] [place] [address] Oct, [facility] [place] [facility] [address] [id number] [place] [address] Sep, [facility] [address] [id number] [place] [address] Sep, [facility] [place] [facility] [address] [id number] [place] [address] Aug, [facility] [place] [facility] [address] [id number] [place] [address] Aug, [facility] [address] [id number] [place] [address] Jul, [facility] [place] [facility] [address] [address] [id number] [place] [address] Jul, [facility] [place] [facility] [address] [id number] [place] [address] Jul, [facility] [place] [facility] [address] [id number] [place] [address] Jun, [facility] [place] [facility] [address] [id number], [place] [address] May, [facility] [place] [facility] [address] [id number] [place] [address] Apr, [facility] [place] [facility] [address] [id number] [place] [address] 18 Feb, 2011 [facility] [place] [facility] [address] [id number] [place] [address] Sep, [facility] [place] [facility] [address] [id number] [address] 22 Jul, 2010 [facility] [id number], [place] [address] Jul, [facility] [id number], [place] [address] Jul, [facility] [id number], [place] [address] Jul, [facility] [id number], [place] [address] Jun, [facility] [id number], [place] [address] Feb, [facility] [id number], [place] [address] Jan, [facility] [id number], [place] [address] Feb, [facility] [address] [id number], [place] [address] Jul, IMMUNIZATIONS No Known Immunizations SOCIAL HISTORY Never Assessed REASON FOR VISIT voucher medication PLAN OF CARE VITAL SIGNS MEDICATIONS Medication Instructions Dosage Frequency Start Date End Date Duration Status ProAir HFA 108 (90 Base) MCG/ACT Inhalation [...]
--- OUTSIDE RECORDS SUMMARY | 2018-06-08 16:04 | XMS REPORT ---
Author Author PETRA GARZON Organization [facility] Address [address] [place] [address] Care Team Providers Care Cash Register Servicer Name Role Phone PETRA GARZON Unavailable PROBLEMS Type Condition ICD9-CM Code EES93-FN Code Onset Dates Condition Status SNOMED Code Problem Obstructive sleep apnea syndrome G47.33 Active 82211210 Problem Cannabis dependence F12.20 Active 39604324 Problem Anxiety, generalized F41.1 Active 72278252 Problem Other chronic pain G89.29 Active 34100784 Problem Adjustment disorder with depressed mood F43.21 Active 11451182 Problem Chronic post-traumatic stress disorder (PTSD) F43.12 Active 828464415 Problem Post-traumatic stress disorder F43.10 Active 04243982 Problem Adjustment disorder with anxious mood F43.22 Active 92032635 Problem Adjustment disorder with mixed anxiety and depressed mood F43.23 Active 04987574 Problem Bipolar disorder, unspecified F31.9 Active 00660634 Problem Gastroesophageal reflux disease without esophagitis K21.9 Active 433100315 Problem Cannabis use disorder, moderate, dependence F12.20 Active 91035129 Problem Cigarette nicotine dependence with other nicotine-induced disorder F17.218 Active 41425389 Problem Panic disorder with agoraphobia F40.01 Active 53685697 Problem Moderate persistent asthma without complication J45.40 Active 656700076 ALLERGIES No Information ENCOUNTERS Encounter Location Date Diagnosis [facility] [id number] [address] Aug, [facility] [address], [place] [address] May, [facility] [address], [place] [address] 4805 Apr, [facility] [id number], [place] [address] 68[address] Apr, [place] [address], [place] [address] 0[address] Apr, [place] [id number] [place] [address] 01743- 6230 Apr, [place] [id number] [place] [address] 72697- 1115 Apr, Bipolar disorder, unspecified F31.9 ; Panic disorder with agoraphobia F40.01 and Cannabis use disorder, moderate, dependence F12.20 [place] [id number] [place] [address] 30917- 2062 Mar, [place] [id number] [place] [address] 77622- 5989 Mar, [place] [id number] [place] [address] 42462- 4563 Jan, Low back pain M54.5 ; Moderate persistent asthma without complication J45.40 and Other chronic pain G89.29 [place] [id number] [place] [address] 14398- 8486 Jan, Moderate persistent asthma without complication J45.40 ; Low back pain M54.5 ; Other chronic pain G89.29 ; Gastroesophageal reflux disease without esophagitis K21.9 and Cigarette nicotine dependence with other nicotine-induced disorder F17.218 [place] [id number] [place] [address] 79085- 7357 December, Bipolar disorder, unspecified F31.9 ; Panic disorder with agoraphobia F40.01 ; Cannabis use disorder, moderate, dependence F12.20 and Chronic post-traumatic stress disorder (PTSD) F43.12 [place] [id number] [place] [address] 73644- 2415 December, [place] [id number] [place] [address] 84258- 1299 December, [place] [id number] [place] [address] 18053- 5825 Nov, [place] [id number] [place] [address] 62040- 0192 Oct, Bipolar disorder, unspecified F31.9 ; Chronic post- traumatic stress disorder (PTSD) F43.12 ; Panic disorder with agoraphobia F40.01 and Cannabis use disorder, moderate, dependence F12.20 [place] [id number] [place] [address] 99974- 0859 Sep, [place] [id number] [place] [address] 39531- 4582 Sep, [address] 7[address]- 8470 Aug, [place] [id number] [place] [address] 90514- 5002 Aug, Cannabis use disorder, moderate, dependence F12.20 ; Panic disorder with agoraphobia F40.01 and Bipolar affective disorder, currently depressed, moderate F31.32 [place] [id number] [place] [address] 76458- 8433 May, Diarrhea of presumed infectious origin A09 and Nausea and vomiting, intractability of vomiting not specified, unspecified vomiting type R11.2 [id number] [place] [address] 75329- 4321 Apr, [id number] [place] [address] 16017- 9963 Mar, Nausea R11.0 and Gastroenteritis K52.9 [id number] [place] [address] 72989- 7603 Mar, Gastroesophageal reflux disease without esophagitis K21.9 [id number] [place] [address] 28877- 6990 Mar, Gastroesophageal reflux disease without esophagitis K21.9 [id number] [place] [address] 66040- 9949 Mar, [place] [id number] [place] [address] 30480- 1852 Mar, [place] [id number] [place] [address] 04889- 0860 Mar, [place] [id number] [place] [address] 39337- 1066 Feb, Acute pain of right shoulder M25.511 and Muscle spasm M62.838 [place] [id number] [place] [address] 59531- 8705 Feb, Acute labyrinthitis, unspecified laterality H83.09 [place] [id number] [place] [address] 03462- 5668 December, [place] [id number] [place] [address] 59571- 7721 December, [place] [id number] [place] [address] 57763- 4658 December, Cannabis use disorder, moderate, dependence F12.20 ; Anxiety , generalized F41.1 ; Adjustment disorder with mixed anxiety and depressed mood F43.23 and Chronic post-traumatic stress disorder (PTSD) F43.12 [place] [address] [place] [address] 89724- 6162 December, [place] [id number] [place] [address] 65181- 4628 December, [place] [id number] [place] [address] 86382- 8956 Nov, Acute nasopharyngitis J00 [place] [id number] [place] [address] 53380- 5595 Nov, Cannabis use disorder, moderate, dependence F12.20 ; Anxiety , generalized F41.1 ; Adjustment disorder with mixed anxiety and depressed mood F43.23 and Chronic post-traumatic stress disorder (PTSD) F43.12 [place] [id number] [place] [address] 74792- 1106 Nov, Cannabis use disorder, moderate, dependence F12.20 ; Anxiety , generalized F41.1 ; Adjustment disorder with mixed anxiety and depressed mood F43.23 and Chronic post-traumatic stress disorder (PTSD) F43.12 [place] [address] [place] [address] 31 Oct, 2016 Diarrhea, unspecified R19.7 ; Vomiting, unspecified R11.10 and Viral gastroenteritis A08.4 [id number] [place] [address] 29 Oct, 2016 Bipolar disorder, unspecified F31.9 ; Panic disorder with agoraphobia F40.01 ; Cannabis use disorder, moderate, dependence F12.20 ; Cigarette nicotine dependence with other nicotine-induced disorder F17.218 ; Anxiety, generalized F41.1 ; Post-traumatic stress disorder F43.10 and Adjustment disorder with mixed anxiety and depressed mood F43.23 [id number] [place] [address] 13428- 4346 Oct, Bipolar disorder, unspecified F31.9 ; Chronic post- traumatic stress disorder (PTSD) F43.12 ; Panic disorder with agoraphobia F40.01 and Cannabis use disorder, moderate, dependence F12.20 [address] [place] [address] 87707- 8969 Oct, Bipolar disorder, unspecified F31.9 ; Panic disorder with agoraphobia F40.01 ; Cannabis use disorder, moderate, dependence F12.20 ; Cigarette nicotine dependence with other nicotine-induced disorder F17.218 ; Anxiety, generalized F41.1 ; Post-traumatic stress disorder F43.10 and Adjustment disorder with mixed anxiety and depressed mood F43.23 [id number] [place] [address] 14 Oct, 2016 Viral gastroenteritis A08.4 [id number] [place] [address] 5726 09 Oct, 2016 Anxiety, generalized F41.1 ; Post-traumatic stress disorder F43.10 ; Adjustment disorder with depressed mood F43.21 and Adjustment disorder with anxious mood F43.22 [address] [place] [address] 79334- 9653 Oct, Panic disorder with agoraphobia F40.01 ; Cannabis use disorder, moderate, dependence F12.20 ; Bipolar disorder, unspecified F31.9 ; Cigarette nicotine dependence with other nicotine-induced disorder F17.218 ; Adjustment disorder with anxious mood F43.22 ; Anxiety, generalized F41.1 ; Post -traumatic stress disorder F43.10 and Cannabis dependence F12.20 [id number] [place] [address] 03098- 5790 Oct, Bipolar disorder, unspecified F31.9 and Chronic post- traumatic stress disorder (PTSD) F43.12 [id number] [place] [address] 27621- 0939 Oct, Bipolar disorder, unspecified F31.9 and Chronic post- traumatic stress disorder (PTSD) F43.12 [id number] [place] [address] 29707- 8959 Sep, Bipolar disorder, unspecified F31.9 ; Panic disorder with agoraphobia F40.01 ; PTSD (post-traumatic stress disorder) F43.10 ; Cannabis use disorder, moderate, dependence F12.20 ; Cannabis dependence F12.20 and Anxiety, generalized F41.1 [id number] [place] [address] 44648- 3814 Sep, Cannabis use disorder, moderate, dependence F12.20 ; Anxiety , generalized F41.1 and Adjustment disorder with mixed anxiety and depressed mood F43.23 [address] [place] [address] 28883- 7548 15 Sep, 2016 Bipolar disorder, unspecified F31.9 ; Panic disorder with agoraphobia F40.01 ; PTSD (post-traumatic stress disorder) F43.10 ; Cannabis use disorder, moderate, dependence F12.20 ; Cannabis dependence F12.20 and Anxiety, generalized F41.1 [id number] [place] [address] 48707- 2614 Sep, Bipolar disorder, unspecified F31.9 ; Panic disorder with agoraphobia F40.01 ; PTSD (post-traumatic stress disorder) F43.10 ; Cannabis use disorder, moderate, dependence F12.20 ; Cannabis dependence F12.20 and Anxiety, generalized F41.1 [place] [id number] [place] 4681 Sep, Bipolar disorder, unspecified F31.9 ; Post-traumatic stress disorder F43.10 and Cannabis dependence F12.20 [address] [place] [address] Sep, [place] [address]- 4896 Sep, Suicidal behavior without attempted self-injury R46.89 [id number] [place] [address] 687667- 1182 Sep, [place] [id number] [place] [address] 75106- 2634 Sep, Cannabis use disorder, moderate, dependence F12.20 ; Panic disorder with agoraphobia F40.01 ; Bipolar disorder, unspecified F31.9 and Anxiety, generalized F41.1 [place] [address] [place] [address] 53893- 7316 Sep, Bipolar disorder, unspecified F31.9 ; PTSD (post-traumatic stress disorder) F43.10 ; Panic disorder with agoraphobia F40.01 and Cannabis use disorder, moderate, dependence F12.20 [place] [id number] [place] [address] 74975- 1326 Sep, [address] 26845- 4367 Sep, PTSD (post-traumatic stress disorder) F43.10 ; Cannabis use disorder, moderate, dependence F12.20 and Suicidal risk R45.89 [place] [id number] [place] [address]- 2546 Sep, [facility] [id number] [place] [address] 53149- 5240 Jul, Bipolar disorder, unspecified F31.9 ; PTSD (post-traumatic stress disorder) F43.10 and Panic disorder with agoraphobia F40.01 [facility] [address] [place] [address] 53447- 8988 Jul, Obstructive sleep apnea syndrome G47.33 ; Moderate persistent asthma without complication J45.40 and Cigarette nicotine dependence with other nicotine-induced disorder F17.218 [facility] [id number] [place] [address] 15602- 0210 Jul, [facility] [id number] [place] [address] 67715- 2560 Jul, [facility] [id number] [place] [address] 29677- 7976 May, [facility] [id number] [place] [address] 00394- 8892 May, [facility] [id number] [place] [address] 68339- 6350 May, [facility] [address] [place] [address] 96517- 8718 Apr, [facility] [id number] [place] [address] 69253- 4861 Apr, Bipolar disorder, unspecified F31.9 ; PTSD (post-traumatic stress disorder) F43.10 ; Panic disorder with agoraphobia F40.01 and Cannabis use disorder, moderate, dependence F12.20 [facility] [id number] [place] [address] 78820- 2309 Mar, Uncomplicated asthma, unspecified asthma severity J45.909 [facility] [address] [place] [address] 75716- 4705 Mar, [facility] [id number] [place] [address] 16045- 6451 Mar, Moderate persistent asthma without complication J45.40 ; Gastroesophageal reflux disease without esophagitis K21.9 and Cigarette nicotine dependence with other nicotine-induced disorder F17.218 [place] [id number] [place] [address] 29269- 4814 Feb, [place] [id number] [place] [address] 32114- 6534 Jan, Bipolar disorder, unspecified F31.9 ; PTSD (post-traumatic stress disorder) F43.10 ; Panic disorder with agoraphobia F40.01 and Cannabis use disorder, moderate, dependence F12.20 [place] [id number] [place] [address] 35891- 7988 December, [place] [id number] [place] [address] 62249- 4702 Nov, [place] [id number] [place] [address] 49837- 0622 Nov, Bipolar disorder, unspecified F31.9 ; PTSD (post-traumatic stress disorder) F43.10 ; Panic disorder with agoraphobia F40.01 and Cannabis use disorder, moderate, dependence F12.20 [place] [address] [place] [address] 67983- 5439 Oct, [place] [id number] [place] [address] 54558- 0367 Oct, [place] [id number] [place] [address] 75685- 9012 Sep, [place] [id number] [place] [address] 51884- 5760 Sep, Bipolar disorder, unspecified F31.9 ; PTSD (post-traumatic stress disorder) F43.10 ; Panic disorder with agoraphobia F40.01 and Cannabis use disorder, moderate, dependence F12.20 [place] [id number] [place] [address] 41523- 9539 Aug, [facility] [id number] [place] [address] 02619- 4386 Aug, [facility] [id number] [place] [address] 116366- 5117 Aug, Bipolar disorder, unspecified F31.9 ; PTSD (post-traumatic stress disorder) F43.10 ; Panic disorder with agoraphobia F40.01 and Cannabis use disorder, moderate, dependence F12.20 [facility] [id number] [place] [address] 75014- 1642 Jul, [facility] [id number] [place] [address] 550320- 9356 Apr, GERD (gastroesophageal reflux disease) 530.81 and Internal hemorrhoids 455.0 [place] [id number] [place] [address] 73972- 2283 Feb, Rectal bleeding 569.3 and Hemorrhoids 455.6 [facility] [id number] [place] [address] 66900- 0407 Jan, Sinusitis 473.9 and Otitis media 382.9 [facility] [id number] [place] [address] 00988- 5575 December, [facility] [id number] [place] [address] 94931- 4176 Nov, [facility] [id number] [place] [address] 64647- 7253 Nov, [facility] [address] [place] [address] 40992106- 5695 Oct, [facility] [id number] [place] [address] 008940- 6906 Oct, [facility] [address] [place] [address] 630022- 2756 Sep, [facility] [id number] [place] [address] 94949- 0388 04 Sep, 2014 [facility] [place] [facility] [address] [id number] [place] [address]- 8460 Aug, [facility] [place] [facility] [address] [id number] [place] [address]- 5974 Aug, [facility] [place] [facility] [address] [facility] [id number] [place] [address]- 6427 Jul, [facility] [place] [facility] [address] [id number] [place] [address]- 4512 Jul, [facility] [place] [facility] [address] [id number] [place] [address]- 6537 Jul, [facility] [place] [facility] [address] [id number] [place] [address]- 5745 Jul, [facility] [place] [facility] [address] [facility] [id number] [place] [address]- 0311 Jul, [facility] [place] [facility] [address] [id number] [place] [address]- 4169 Jul, [facility] [place] [facility] [address] [facility] [id number] [place] [address]- 4740 Jul, [facility] [place] [facility] [address] [facility] [id number] [place] [address]- 2475 Jul, [facility] [place] [facility] [address] [id number] [address]- 1284 Jun, [facility] [place] [facility] [address] [id number], [place] [address]- 9193 Jun, [facility] [place] [facility] [address] [id number], [place] [address]- 1611 Jun, [facility] [place] [facility] [address] [facility] [id number], [place] [address]- 6707 Jun, [facility] [place] [facility] [address] [facility] [id number] [place] [address]- 4724 May, [facility] [place] [facility] [address] [id number] [place] [address] 254 May, [facility] [place] [facility] [address] [id number] [place] [address]- 0811 May, [facility] [place] [facility] [address] [id number] [place] [address]- 2546 May, [facility] [place] [facility] [address] [id number] [place] [address]- 1846 Apr, [facility] [place] [facility] [address] [id number] [place] [address]- 4970 Apr, [facility] [place] [facility] [address] [id number] [place] [address]- 8775 Apr, [facility] [place] [facility] [address] [id number] [place] [address]- 9241 Apr, [facility] [place] [facility] [address] [id number] [place] [address]- 0747 Mar, [facility] [place] [facility] [address] [id number] [place] [address]- 0429 Mar, [facility] [place] [facility] [address] [id number] [place] [address]- 8857 Mar, [facility] [place] [facility] [address] [id number] [place] [address]- 7892 Mar, [facility] [place] [facility] [address] [id number] [place] [address]- 5788 December, [facility] [place] [facility] [address] [id number] [place] [address]- 0624 December, [facility] [place] [facility] [address] [id number] [place] [address]- 1188 Nov, [facility] [place] [facility] [address] [id number] [place] [address]- 0526 Nov, [facility] [place] [facility] [address] [id number] [place] [address]- 9268 Sep, [facility] [place] [facility] [address] [id number] [place] [address]- 1920 Sep, [facility] [place] [facility] [address] [id number] [place] [address]- 3989 Sep, [facility] [place] [facility] [address] [facility] [id number] [place] [address]- 6428 Sep, [facility] [place] [facility] [address] [id number] [place] [address]- 1676 Aug, [facility] [place] [facility] [address] [id number] [place] [address]- 3445 Jul, [facility] [place] [facility] [address] [id number] [place] [address]- 8317 Jul, [facility] [place] [facility] [address] [facility] [id number] [place] [address]- 7227 Jun, [facility] [place] [facility] [address] [id number] [place] [address]- 3831 Jun, [facility] [place] [facility] [address] [id number] [place] [address]- 5618 May, [facility] [place] [facility] [address] [id number] [place] [address]- 2980 May, [facility] [place] [facility] [address] [id number], [place] [address]- 5181 07 May, 2013 [facility] [place] [facility] [address] [id number], [place] [address]- 2635 17 Apr, 2012 [facility] [place] [facility] [address] [id number] [place] [address]- 9829 16 Apr, 2012 [facility] [place] [facility] [address] [facility] [id number] [place] [address]- 6831 09 Apr, 2013 [facility] [place] [facility] [address] [facility] [id number] [place] [address]- 9489 09 Apr, 2012 [facility] [place] [facility] [address] [id number] [place] [address]- 6577 30 Mar, 2013 [facility] [address] [id number] [place] [address]- 6857 Mar, [facility] [address] [id number] [place] [address] 2546 December, [facility] [address] [id number] [place] [address]- 6086 Oct, [facility] [address] [id number] [place] [address]- 1935 Oct, [facility] [address] [id number] [place] [address]- 0986 Aug, [facility] [address] [id number] [place] [address]- 0324 17 Jul, 2012 [facility] [address] [id number] [place] [address]- 6173 17 Jul, 2012 [facility] [address] [id number] [place] [address]- 8037 13 Jul, 2012 [facility] [address] [id number] [place] [address]- 3933 13 Jul, 2012 [facility] [address] [id number] [place] [address]- 5024 14 Jun, 2012 [facility] [address] [id number] [place] [address] 14 Jun, 2012 [facility] [address] [id number] [place] [address] 14 Mar, 2012 [facility] [place] [facility] [address] [id number] [place] [address] 16 Feb, 2012 [facility] [address] [id number] [place] [address] 16 Feb, 2012 [facility] [address] [id number] [place] [address] December, [facility] [address] [id number] [place] [address] Nov, [facility] [place] [facility] [address] [id number] [place] [address] Oct, [facility] [place] [facility] [address] [id number] [place] [address] Oct, [facility] [place] [facility] [address] [id number] [place] [address] Sep, [facility] [address] [id number] [place] [address] Sep, [facility] [place] [facility] [address] [id number] [place] [address] Aug, [facility] [place] [facility] [address] [id number] [place] [address] Aug, [facility] [address] [id number] [place] [address] Jul, [facility] [place] [facility] [address] [id number] [place] [address] Jul, [facility] [place] [facility] [address] [id number] [place] [address] Jul, [facility] [place] [facility] [address] [id number] [place] [address] Jun, [facility] [place] [facility] [address] [id number], [place] [address] May, [facility] [place] [facility] [address] [id number] [place] [address] Apr, [facility] [place] [facility] [address] [id number] [place] [address] 18 Feb, 2011 [facility] [place] [facility] [address] [id number] [place] [address] Sep, [facility] [place] [facility] [address] [id number] [address] 22 Jul, 2010 [facility] [address] [id number], [place] [address] Jul, [facility] [address], [place] [address] Jul, [facility] [id number], [place] [address] Jul, [facility] [id number], [place] [address] Jun, [facility] [id number], [place] [address] Feb, [facility] [id number], [place] [address] Jan, [facility] [id number], [place] [address] Feb, [facility] [id number], [place] [address] Jul, IMMUNIZATIONS No Known Immunizations SOCIAL HISTORY Never Assessed REASON FOR VISIT Repository meds PLAN OF CARE VITAL SIGNS MEDICATIONS Medication Instructions Dosage Frequency Start Date End Date Duration Status Ibuprofen 800 MG TAKE 1 TABLET (800 MG) BY ORAL ROUTE 3 TIMES PER DAY WITH FOOD Active RESULTS No Results PROCEDURES No Known [...]
[2018-06-08] MEDS ORDERED: CYCLOBENZAPRINE 10 MG (FLEXERIL) TAB PO STA (16:08)
[2018-06-08] MEDS ORDERED: fentaNYL INJECTION 100 MCG/2 ML AMP IM STA (16:09)
--- NOTE | 2018-06-08 16:14 | ED General ---
General Chief Complaint: Chest Wall/Rib Pain Stated Complaint: L RIB PAIN Nursing Triage Note: pt brought in by ems with complaint of left sided rib pain. states he broke a rib approximately a month ago. states he picked up a little kid and hear a loud "pop". states he had excruitiating pain after. Nursing Sepsis Screen: No Definite Risk History of Present Illness Date Seen by Provider: Jun 08, 2018 Time Seen by Provider: 16:00 Initial Comments 38-year-old male presents via EMS for left rib pain. He was diagnosed earlier this month with a left seventh rib fracture. He states that he has been doing well over the last few weeks until today when he picked up a child under one year of age and felt a pop in the left ribs. Since then he's been having excruciating left flank pain. He took 2 ibuprofen 800 mg, with no improvement in his symptoms. He does report smoking marijuana recreationally, approximately twice daily, he denies any use today but did smoke yesterday. He is complaining of a popping sensation in his left flank every time he takes a deep breath or moves. Timing/Duration: 1-3 Hours Severity: Severe (patient rates the pain 9/10) Allergies and Home Medications Allergies Coded Allergies: Penicillins (Unverified Allergy, Mild, 11/07/09) codeine (Unverified Allergy, Mild, 11/07/09) egg (Verified Allergy, Unknown, 09/15/16) Home Medications Albuterol 8.5 Gm Hfa.aer.ad, 2 PUFF IH QID PRN for SHORTNESS OF BREATH, ( Reported) NEEDED FOR SHORTNESS OF BREATH Beclomethasone Dipropionate 7.3 Gm Aer.w.adap, 2 PUFF IH BID, (Reported) 40 MCG Cefdinir 300 Mg Capsule, 300 MG PO BID Prescribed by: AMI CALLAHAN on 09/15/16 1213 Cyclobenzaprine HCl 10 Mg Tablet, 10 MG PO Q8H Prescribed by: BECCA BURK on 12/07/17 1032 Hydrocodone Bit/Acetaminophen 1 Each Tablet, 1 TAB PO BID PRN for PAIN, ( Reported) NEEDED FOR PAIN 5-325MG TABLET Hydrocodone Bit/Acetaminophen 1 Tab Tab, 1-2 EACH PO Q6H PRN for PAIN-MODERATE Prescribed by: ROSARIO URIOSTEGUI on 06/08/18 1729 Hyoscyamine Sulfate 0.125 Mg Tab, 1-2 EACH PO Q4HR PRN PRN for CRAMPS Prescribed by: BECCA BURK on 12/22/13 1401 Ibuprofen 800 Mg Tablet, 800 MG PO q8h PRN for PAIN, (Reported) Lorazepam 1 Mg Tablet, 1 MG PO BID PRN for ANXIETY Prescribed by: AMI CALLAHAN on 09/15/16 1153 Lorazepam 0.5 Mg Tablet, 0.5 MG PO TID PRN for ANXIETY Prescribed by: ROSARIO URIOSTEGUI on 06/08/18 1729 Methylprednisolone 4 Mg Tab.ds.pk, 4 MG PO UD Prescribed by: BECCA BURK on 12/07/17 1032 Montelukast Sodium 10 Mg Tablet, 10 MG PO DAILY, (Reported) Ondansetron Hcl 4 Mg Tab, 4 MG SL Q4H FOR NAUSEA AND VOMITING Prescribed by: BECCA BURK on 12/22/13 1401 Oxycodone HCl/Acetaminophen 1 Each Tablet, 1 EACH PO Q4H PRN for PAIN-MODERATE Prescribed by: AMI CALLAHAN on 05/13/18 1245 Patient Home Medication List Home Medication List Reviewed: Yes Review of Systems Review of Systems Constitutional: no symptoms reported, see HPI Respiratory: see HPI; No cough, No short of breath; other (pain left mid ribs, laterally) All Other Systems Reviewed Negative Unless Noted: Yes Past Ewskzri-Izosls-Idxznk Hx Past Med/Social Hx: Reviewed Nursing Past Med/Soc Hx Patient Social History Alcohol Use: Denies Use Recreational Drug Use: No Drug of Choice: marijuana Type Used: Cigarettes 2nd Hand Smoke Exposure: Yes Recent Foreign Travel: No Contact w/Someone Who Travel: No Recent Infectious Disease Expo: No Recent Hopitalizations: No Past Medical History Surgeries: Yes Orthopedic Respiratory: Yes Asthma, COPD Cardiac: Yes Hypertension Neurological: No Genitourinary: No Gastrointestinal: Yes Gastroesophageal Reflux, Hemorrhoids Musculoskeletal: Yes Chronic Back Pain Endocrine: No HEENT: No Cancer: No Psychosocial: Yes (MOOD SWINGS) Sleep Difficulties, Depression Integumentary: No Blood Disorders: No Physical Exam Vital Signs Vital Signs - First Documented 06/08/18 15:55 Temp 98.0 Pulse 83 Resp 20 B/P (MAP) 131/78 (95) Pulse Ox 100 O2 Delivery Room Air Capillary Refill : Less Than 3 Seconds Height, Weight, BMI Height: 6'4.00" Weight: 200lbs. 0oz. 90.413671uz; 26.78 BMI Method:Stated General Appearance: No Apparent Distress, WD/WN, Anxious HEENT: PERRL/EOMI, TMs Normal, Normal ENT Inspection, Pharynx Normal Neck: Full Range of Motion, Normal Inspection, Non Tender, Supple Respiratory: Lungs Clear, Normal Breath Sounds, Other (pain to palpation left lateral mid ribs. No crepitus felt, patient reports feeling a popping sensation when he inhales. ) Cardiovascular: Regular Rate, Rhythm, No Edema, No Murmur, Normal Peripheral Pulses Gastrointestinal: Normal Bowel Sounds, Non Tender, Soft Neurologic/Psychiatric: Alert, Oriented x3, No Motor/Sensory Deficits, Normal Mood/Affect Progress/Results/Core Measures Suspected Sepsis Recent Fever Within 48 Hours: No Infection Criteria Present: None New/Unexplained Altered Menta: No Sepsis Screen: No Definite Risk SIRS Temperature:98.0 Pulse: 83 Respiratory Rate: 20 Blood Pressure 131 /78 Mean: 95 Results/Orders My Orders Orders - ROSARIO URIOSTEGUI Ribs, Left 2-3 Views (06/08/18 16:03) Cyclobenzaprine Tablet (Flexeril Tablet) (06/08/18 16:08) Fentanyl Injection (Sublimaze Injection (06/08/18 16:09) Lorazepam Tablet (Ativan Tablet) (06/08/18 16:15) Rt Request For Service (06/08/18 17:25) Incentive Spirometry Initial (06/08/18 17:25) Incentive Spirometry (Nursing) Q2H (06/08/18 17:25) Medications Given in ED Current Medications Medications Dose Ordered Sig/Adonay Route Start Time Stop Time Status Last Admin Dose Admin Lorazepam 0.5 mg ONCE ONCE PO 06/08/18 16:15 06/08/18 16:16 DC 06/08/18 16:32 0.5 MG Vital Signs/I&O 06/08/18 06/08/18 06/08/18 15:55 17:40 17:46 Temp 98.0 98.0 Pulse 83 83 Resp 20 20 B/P (MAP) 131/78 (95) 131/78 (95) Pulse Ox 100 100 O2 Delivery Room Air Room Air Room Air Capillary Refill : Less Than 3 Seconds Blood Pressure Mean: 95 Progress Note : Time: 16:00 Progress Note Patient seen and evaluated, recommended new x-rays of the left ribs. We'll give fentanyl 50 g IM, cyclobenzaprine 10 mg by mouth and lorazepam 0.5 mg by mouth. 1645 x-ray results reviewed with the patient, compared with previous CT findings. The fracture at the seventh rib appears to be healed. The fracture at the eighth rib is a very new or was not appreciated/displaced on his last film. However there is no signs of callus to demonstrate healing. 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 Clarified that he was picking up a child when the pain started and he verified, no other injury or fall occurred. He does report improvement in pain 1700 discharge instructions and return precautions reviewed with the patient. All questions answered. RT here with incentive spirometer and instructions for patient. Diagnostic Imaging Diagonstic Imaging: Xray Plain Films/CT/US/NM/MRI: other (left ribs) Comments NAME: JANE RICK Remington MED REC#: [id number] PT STATUS: REG ER : 1980 PHYSICIAN: ROSARIO URIOSTEGUI ADMIT DATE: 06/08/18/ER Draft Date of Exam:06/08/18 RIBS, LEFT 2-3 VIEWS INDICATION: Chest wall pain. FINDINGS: There is a left eighth rib fracture posterolaterally with mild displacement. The known left seventh rib fracture seen on the previous CT shows callus and new bone formation and is healed or nearly healed. The eighth rib fracture previously could not be identified on CT and may be a new injury or previously occult and now visualized only owing to some mild displacement. It shows no obvious new bone formation. No lung contusion, pneumothorax, or hemothorax. IMPRESSION: 1. There is a mildly displaced left eighth rib fracture posterolaterally without bony bridging. This may be new or intervally displaced. 2. Interval healing of the previous seventh rib fracture. 3. No pulmonary parenchymal injury or hemothorax. Dictated on workstation # [id number] Dict: 06/08/18 1627 Trans: 06/08/18 [id number] Interpreted by: MANN HUNTER Electronically signed by: Departure Impression Primary Impression: Left rib fracture Qualified Codes: S22.42XD - Multiple fractures of ribs, left side, subsequent encounter for fracture with routine healing Disposition: 01 HOME, SELF-CARE Condition: Improved Departure-Patient Inst. Decision time for Depature: 17:15 Referrals: PETRA GARZON MD (PCP/Family) Primary Care Physician Patient Instructions: Rib Fracture (DC) Add. Discharge Instructions: Alternate between heat and ice on the left ribs. Take pain medication as prescribed. Follow-up with Dr. Garzon in 2-3 days if symptoms are not improving or worsen. Follow-up with Dr. Garzon for pain management as needed. Take your ibuprofen 800 mg 1 tablet every 8 hours. Use a pillow to splint the area of pain when coughing and taking deep breaths. Usually incentive spirometer every 2 hours while awake. Return to emergency department for increased pain, new injuries, or difficulty breathing. All discharge instructions reviewed with patient and/or family. Voiced understanding. Scripts Lorazepam (Ativan) 0.5 Mg Tablet 0.5 MG PO TID PRN for ANXIETY, #15 TAB 0 Refills Prov: ROSARIO URIOSTEGUI 06/08/18 Hydrocodone Bit/Acetaminophen (Hydrocodone/Acetaminophen 5/325mg Tablet) 1 Tab Tab 1-2 EACH PO Q6H PRN for PAIN-MODERATE MDD 10, #20 TAB 0 Refills Prov: ROSARIO URIOSTEGUI 06/08/18 Copy Copies To 1: PETRA GARZON MD, AMY ARNP Jun 08, 2018 16:14
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
[2018-06-08] MEDS ORDERED: LORazepam 0.5 MG (ATIVAN) TABLET PO ONE (16:15)
--- NOTE | 2018-06-08 16:38 | Diagnostic Imaging Report ---
INDICATION: Chest wall pain. FINDINGS: There is a left eighth rib fracture posterolaterally with mild displacement. The known left seventh rib fracture seen on the previous CT shows callus and new bone formation and is healed or nearly healed. The eighth rib fracture previously could not be identified on CT and may be a new injury or previously occult and now visualized only owing to some mild displacement. It shows no obvious new bone formation. No lung contusion, pneumothorax, or hemothorax. IMPRESSION: 1. There is a mildly displaced left eighth rib fracture posterolaterally without bony bridging. This may be new or intervally displaced. 2. Interval healing of the previous seventh rib fracture. 3. No pulmonary parenchymal injury or hemothorax. Dictated by: Dictated on workstation # [id number]
[2018-06-08] MEDS ORDERED: ACHD5005 PO (17:29)
[2018-06-08] MEDS ORDERED: LORA-404 PO (17:29)
[2018-06-08 17:46] VITALS: BP 131/78
== END 2018-06-08 17:46 | disposition home or self-care (01) ==
LOC: EDUNIT# 15:54 → ER 15:56
DX: S22.42XD Multiple fractures of ribs, left side, subsequent encounter for fracture with routine healing (principal); J44.9 Chronic obstructive pulmonary disease, unspecified; I10 Essential (primary) hypertension; F32.9 Major depressive disorder, single episode, unspecified; K21.9 Gastro-esophageal reflux disease without esophagitis; F12.10 Cannabis abuse, uncomplicated; F17.210 Nicotine dependence, cigarettes, uncomplicated; Z88.0 Allergy status to penicillin; Z88.5 Allergy status to narcotic agent; Z87.19 Personal history of other diseases of the digestive system; Z79.51 Long term (current) use of inhaled steroids; Z79.52 Long term (current) use of systemic steroids; X58.XXXA Exposure to other specified factors, initial encounter
CPT/HCPCS: 71100; 94664; 96372

== ENCOUNTER 2018-07-07 14:35 | Emergency (ER) | payer OTHER ==
[~2018-07-07] VITALS: Ht 193 cm; Wt 95.3 kg
[~2018-07-07 14:35] MED LIST changes: +LORA-404 PO
--- OUTSIDE RECORDS SUMMARY | 2018-07-07 14:40 | XMS REPORT ---
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 Name Role Phone PETRA GARZON Unavailable PROBLEMS Type Condition ICD9-CM Code REV52-QY Code Onset Dates Condition Status SNOMED Code Problem Anxiety, generalized F41.1 Active 88885988 Problem Post-traumatic stress disorder F43.10 Active 58907889 Problem Cannabis dependence F12.20 Active 57780116 Problem Seizures R56.9 Active 07473916 Problem Other chronic pain G89.29 Active 13632172 Problem Adjustment disorder with mixed anxiety and depressed mood F43.23 Active 07441303 Problem Chronic post-traumatic stress disorder (PTSD) F43.12 Active 309628751 Problem Adjustment disorder with depressed mood F43.21 Active 77477959 Problem Adjustment disorder with anxious mood F43.22 Active 27691017 Problem Bipolar disorder, unspecified F31.9 Active 34214109 Problem Gastroesophageal reflux disease without esophagitis K21.9 Active 987639339 Problem Cigarette nicotine dependence with other nicotine-induced disorder F17.218 Active 39070339 Problem Panic disorder with agoraphobia F40.01 Active 76385282 Problem Moderate persistent asthma without complication J45.40 Active 376071632 Problem Cannabis use disorder, moderate, dependence F12.20 Active 08842930 Problem Obstructive sleep apnea syndrome G47.33 Active 22727992 ALLERGIES No Information ENCOUNTERS Encounter Location Date Diagnosis [facility] [address] [facility] [id number], [place] [address] Aug, [facility] [address], [place] [address] 15[address] Jun, [facility] [address], [place] [address] Jun, [facility] [address] [id number], [place] [address] 4[address] Jun, [facility] [place] [facility] [address] [facility] [id number] [place] [address]- 4648 Jun, Seizures R56.9 [facility] [place] [facility] [address] [facility] [id number] [place] [address]- 3816 Jun, [facility] [place] [facility] [address] [facility] [id number] [place] [address], [place] [address]- 0786 May, [facility] [place] [facility] [address] [facility] [id number] [place] [address], [place] [address]- 0945 May, [facility] [place] [facility] [id number] [place] [address], [place] [address]- 5980 May, [facility] [place] [facility] [address] [facility] [id number] [place] [address], [place] [address]- 8473 May, [facility] [place] [facility] [id number] [place] [address], [place] [address]- 9028 May, [facility] [place] [facility] [address] [facility] [id number] [place] [address]- 7944 May, [facility] [place] [facility] [id number] [place] [address], [place] [address]- 9043 May, [facility] [place] [facility] [address] [facility] [id number] [place] [address]- 2420 May, Seizures R56.9 [facility] [place] [facility] [address] [facility] [id number] [place] [address]- 0718 May, [facility] [place] [facility] [address] [facility] [id number], [place] [address]- 4137 Apr, [facility] [place] [facility] [address] [facility] [id number] [place] [address]- 3191 Apr, [facility] [place] [facility] [address] [facility] [id number] [place] [address]- 6252 Apr, [facility] [place] [facility] [address] [facility] [id number], [place] [address]- 18[address] Apr, [place] [address], [place] [address]- 8103 Apr, Bipolar disorder, unspecified F31.9 ; Panic disorder with agoraphobia F40.01 and Cannabis use disorder, moderate, dependence F12.20 [place] [address], [place] [address]- 8085 Mar, [place] [id number] [place] [address] 17597- 3610 Mar, [place] [id number] [place] [address] 96983- 9178 Jan, Low back pain M54.5 ; Moderate persistent asthma without complication J45.40 and Other chronic pain G89.29 [place] [id number] [place] [address] 80842- 3804 Jan, Moderate persistent asthma without complication J45.40 ; Low back pain M54.5 ; Other chronic pain G89.29 ; Gastroesophageal reflux disease without esophagitis K21.9 and Cigarette nicotine dependence with other nicotine-induced disorder F17.218 [place] [id number] [place] [address] 13794- 4218 December, Bipolar disorder, unspecified F31.9 ; Panic disorder with agoraphobia F40.01 ; Cannabis use disorder, moderate, dependence F12.20 and Chronic post-traumatic stress disorder (PTSD) F43.12 [place] [address], [place] [address]- 0547 December, [place] [address], [place] [address]- 0058 December, [place] [id number] [place] [address] 93181- 3814 Nov, [place] [address], [place] [address]- 0908 Oct, Bipolar disorder, unspecified F31.9 ; Chronic post- traumatic stress disorder (PTSD) F43.12 ; Panic disorder with agoraphobia F40.01 and Cannabis use disorder, moderate, dependence F12.20 [facility] [id number] [place] [address] 14164- 2080 Sep, [facility] [id number] [place] [address] 05040- 5502 Sep, [facility] [id number] [place] [address] 10593- 0204 Aug, [facility] [id number] [place] [address] 81749- 2951 Aug, Cannabis use disorder, moderate, dependence F12.20 ; Panic disorder with agoraphobia F40.01 and Bipolar affective disorder, currently depressed, moderate F31.32 [place] [id number] [place] [address] 14261- 0905 May, Diarrhea of presumed infectious origin A09 and Nausea and vomiting, intractability of vomiting not specified, unspecified vomiting type R11.2 [place] [id number] [place] [address] 84830- 2780 Apr, [place] [address] [address]- 1622 Mar, Nausea R11.0 and Gastroenteritis K52.9 [place] [id number] [place] [address] 79391- 7366 Mar, Gastroesophageal reflux disease without esophagitis K21.9 [place] [id number] [place] [address] 11973- 5011 Mar, Gastroesophageal reflux disease without esophagitis K21.9 [place] [id number] [place] [address] 52899- 1067 Mar, [facility] [id number] [place] [address] 35911- 0742 Mar, [place] [id number] [place] [address] 70925- 0304 Mar, [place] [id number] [place] [address] 53878- 2333 Feb, Acute pain of right shoulder M25.511 and Muscle spasm M62.838 [place] [id number] [place] [address] 55440- 6167 Feb, Acute labyrinthitis, unspecified laterality H83.09 [place] [address] 19285- 6445 December, [place] [id number] [place] [address] 93420- 3024 December, [place] [id number] [place] [address] 24951- 1830 December, Cannabis use disorder, moderate, dependence F12.20 ; Anxiety , generalized F41.1 ; Adjustment disorder with mixed anxiety and depressed mood F43.23 and Chronic post-traumatic stress disorder (PTSD) F43.12 [place] [id number] [place] [address] 79693- 5908 December, [place] [id number] [place] [address] 96769- 2626 December, [place] [id number] [place] [address] 97520- 2135 Nov, Acute nasopharyngitis J00 [place] [id number] [place] [address] 33979- 2934 Nov, Cannabis use disorder, moderate, dependence F12.20 ; Anxiety , generalized F41.1 ; Adjustment disorder with mixed anxiety and depressed mood F43.23 and Chronic post-traumatic stress disorder (PTSD) F43.12 [place] [id number] [place] [address] 78223- 4614 Nov, Cannabis use disorder, moderate, dependence F12.20 ; Anxiety , generalized F41.1 ; Adjustment disorder with mixed anxiety and depressed mood F43.23 and Chronic post-traumatic stress disorder (PTSD) F43.12 [place] [address], [place] [address]- 3795 31 Oct, 2016 Diarrhea, unspecified R19.7 ; Vomiting, unspecified R11.10 and Viral gastroenteritis A08.4 [place] [id number] [place] [address] 26581- 5664 29 Oct, 2016 Bipolar disorder, unspecified F31.9 ; Panic disorder with agoraphobia F40.01 ; Cannabis use disorder, moderate, dependence F12.20 ; Cigarette nicotine dependence with other nicotine-induced disorder F17.218 ; Anxiety, generalized F41.1 ; Post-traumatic stress disorder F43.10 and Adjustment disorder with mixed anxiety and depressed mood F43.23 [id number] [place] [address] 73476- 7836 Oct, Bipolar disorder, unspecified F31.9 ; Chronic post- traumatic stress disorder (PTSD) F43.12 ; Panic disorder with agoraphobia F40.01 and Cannabis use disorder, moderate, dependence F12.20 [id number] [place] [address] 15407- 1532 Oct, Bipolar disorder, unspecified F31.9 ; Panic disorder with agoraphobia F40.01 ; Cannabis use disorder, moderate, dependence F12.20 ; Cigarette nicotine dependence with other nicotine-induced disorder F17.218 ; Anxiety, generalized F41.1 ; Post-traumatic stress disorder F43.10 and Adjustment disorder with mixed anxiety and depressed mood F43.23 [place] [id number] [place] [address] 83252- 7176 14 Oct, 2016 Viral gastroenteritis A08.[address] [place] [address] 47886- 4048 09 Oct, 2016 Anxiety, generalized F41.1 ; Post-traumatic stress disorder F43.10 ; Adjustment disorder with depressed mood F43.21 and Adjustment disorder with anxious mood F43.22 [id number] [place] [address] 70034- 6463 07 Oct, 2016 Panic disorder with agoraphobia F40.01 ; Cannabis use disorder, moderate, dependence F12.20 ; Bipolar disorder, unspecified F31.9 ; Cigarette nicotine dependence with other nicotine-induced disorder F17.218 ; Adjustment disorder with anxious mood F43.22 ; Anxiety, generalized F41.1 ; Post -traumatic stress disorder F43.10 and Cannabis dependence F12.20 [place] [id number] [place] [address] 49223- 468 Oct, Bipolar disorder, unspecified F31.9 and Chronic post- traumatic stress disorder (PTSD) F43.12 [place] [id number] [place] [address]- 783 Oct, Bipolar disorder, unspecified F31.9 and Chronic post- traumatic stress disorder (PTSD) F43.12 [place] [id number] [place]- 1417 28 Sep, 2016 Bipolar disorder, unspecified F31.9 ; Panic disorder with agoraphobia F40.01 ; PTSD (post-traumatic stress disorder) F43.10 ; Cannabis use disorder, moderate, dependence F12.20 ; Cannabis dependence F12.20 and Anxiety, generalized F41.1 [place] [id number] [place] [address] 56205- 4114 Sep, Cannabis use disorder, moderate, dependence F12.20 ; Anxiety , generalized F41.1 and Adjustment disorder with mixed anxiety and depressed mood F43.23 [place] [id number] [place] [address] 60622- 9229 15 Sep, 2016 Bipolar disorder, unspecified F31.9 ; Panic disorder with agoraphobia F40.01 ; PTSD (post-traumatic stress disorder) F43.10 ; Cannabis use disorder, moderate, dependence F12.20 ; Cannabis dependence F12.20 and Anxiety, generalized F41.1 [place] [id number] [place] [address] 6954 10 Sep, 2016 Bipolar disorder, unspecified F31.9 ; Panic disorder with agoraphobia F40.01 ; PTSD (post-traumatic stress disorder) F43.10 ; Cannabis use disorder, moderate, dependence F12.20 ; Cannabis dependence F12.20 and Anxiety, generalized F41.1 [place] [id number] [place] [address] 09307- 7468 08 Sep, 2016 Bipolar disorder, unspecified F31.9 ; Post-traumatic stress disorder F43.10 and Cannabis dependence F12.20 [place] [id number] Sep, [place] [address] [place] [address]- 7046 Sep, Suicidal behavior without attempted self-injury R46.89 [place] [id number] [place] [address]- 5863 Sep, [place] [id number] [place] [address] 514663- 6510 Sep, Cannabis use disorder, moderate, dependence F12.20 ; Panic disorder with agoraphobia F40.01 ; Bipolar disorder, unspecified F31.9 and Anxiety, generalized F41.1 [place] [id number] [place] [address] 32324- 2469 Sep, Bipolar disorder, unspecified F31.9 ; PTSD (post-traumatic stress disorder) F43.10 ; Panic disorder with agoraphobia F40.01 and Cannabis use disorder, moderate, dependence F12.20 [place] [id number] [place] [address] 56324- 0680 Sep, [place] [id number] [place] [address] 56185- 4249 Sep, PTSD (post-traumatic stress disorder) F43.10 ; Cannabis use disorder, moderate, dependence F12.20 and Suicidal risk R45.89 [place] [id number] [place] [address] 81153- 5630 Sep, [place] [id number] [place] [address] 41911- 6451 Jul, Bipolar disorder, unspecified F31.9 ; PTSD (post-traumatic stress disorder) F43.10 and Panic disorder with agoraphobia F40.01 [place] [address] [place] [address] 55707- 5942 13 Jul, 2016 Obstructive sleep apnea syndrome G47.33 ; Moderate persistent asthma without complication J45.40 and Cigarette nicotine dependence with other nicotine-induced disorder F17.218 [place] [id number] [place] [address] 72397- 6561 05 Jul, 2016 [facility] [id number] [place] [address] 74635- 9996 05 Jul, 2016 [facility] [id number] [place] [address] 86513- 4235 May, [place] [id number] [place] [address] 28241- 0423 May, [place] [id number] [place] [address] 69911- 6533 May, [facility] [id number] [place] [address] 81531- 7495 Apr, [place] [id number] [place] [address] 00809- 8618 Apr, Bipolar disorder, unspecified F31.9 ; PTSD (post-traumatic stress disorder) F43.10 ; Panic disorder with agoraphobia F40.01 and Cannabis use disorder, moderate, dependence F12.20 [place] [address] [place] [address] 24283- 5344 Mar, Uncomplicated asthma, unspecified asthma severity J45.909 [place] [address] [place] [address] 44258- 8513 Mar, [place] [id number] [place] [address] 93068- 4989 Mar, Moderate persistent asthma without complication J45.40 ; Gastroesophageal reflux disease without esophagitis K21.9 and Cigarette nicotine dependence with other nicotine-induced disorder F17.218 [place] [address], [place] [address]- 4713 Feb, [facility] [id number] [place] [address] 50201- 2715 Jan, Bipolar disorder, unspecified F31.9 ; PTSD (post-traumatic stress disorder) F43.10 ; Panic disorder with agoraphobia F40.01 and Cannabis use disorder, moderate, dependence F12.20 [facility] [id number] [place] [address] 78873- 7825 December, [facility] [id number] [place] [address] 96918- 7693 Nov, [place] [id number] [place] [address] 65383- 9120 Nov, Bipolar disorder, unspecified F31.9 ; PTSD (post-traumatic stress disorder) F43.10 ; Panic disorder with agoraphobia F40.01 and Cannabis use disorder, moderate, dependence F12.20 [place] [address] [place] [address] 57868- 8812 Oct, [place] [id number] [place] [address] 83002- 9577 Oct, [facility] [address] [place] [address] 57378- 5349 Sep, [place] [address] [place] [address] 77002- 0495 Sep, Bipolar disorder, unspecified F31.9 ; PTSD (post-traumatic stress disorder) F43.10 ; Panic disorder with agoraphobia F40.01 and Cannabis use disorder, moderate, dependence F12.20 [facility] [id number] [place] [address] 95464- 3094 Aug, [facility] [address] [place] [address] 73290- 9301 Aug, [facility] [id number] [place] [address] 24633- 2732 Aug, Bipolar disorder, unspecified F31.9 ; PTSD (post-traumatic stress disorder) F43.10 ; Panic disorder with agoraphobia F40.01 and Cannabis use disorder, moderate, dependence F12.20 [facility] [id number] [place] [address] 68363- 6436 Jul, [facility] [id number] [place] [address] 56628- 0863 Apr, GERD (gastroesophageal reflux disease) 530.81 and Internal hemorrhoids 455.0 [facility] [address] 88652- 9239 Feb, Rectal bleeding 569.3 and Hemorrhoids 455.6 [facility] [id number] [place] [address] 721689- 5484 Jan, Sinusitis 473.9 and Otitis media 382.9 [facility] [id number] [place] [address] 10480- 7778 December, [facility] [id number] [place] [address] 067280- 3111 Nov, [facility] [id number] [place] [address] 27397- 0915 Nov, [facility] [id number] [place] [address] 329294- 8806 Oct, [facility] [id number] [place] [address] 90807- 5026 Oct, [facility] [id number] [place] [address] 48756- 5699 Sep, [facility] [id number] [place] [address] 02861- 3106 Sep, [facility] [id number] [place] [address] 66590- 2836 Aug, [facility] [id number] [place] [address] 44112- 7641 Aug, [facility] [place] [facility] [address] [id number] [place] [address]- 2167 Jul, [facility] [place] [facility] [address] [id number] [place] [address]- 2482 Jul, [facility] [place] [facility] [address] [facility] [id number] [place] [address]- 8920 Jul, [facility] [place] [facility] [address] [id number] [place] [address]- 6645 Jul, [facility] [place] [facility] [address] [facility] [id number] [place] [address]- 9116 Jul, [facility] [place] [facility] [address] [id number] [place] [address]- 3683 Jul, [facility] [place] [facility] [address] [facility] [id number] [place] [address]- 9919 Jul, [facility] [place] [facility] [address] [id number] [place] [address]- 3737 Jul, [facility] [place] [facility] [address] [facility] [id number] [place] [address]- 3949 Jun, [facility] [place] [facility] [address] [facility] [id number], [place] [address]- 6382 Jun, [facility] [place] [facility] [address] [id number], [place] [address]- 8582 Jun, [facility] [place] [facility] [address] [id number], [place] [address]- 5975 Jun, [facility] [place] [facility] [address] [id number], [place] [address]- 5115 May, [facility] [place] [facility] [address] [facility] [id number], [place] [address]- 1170 May, [facility] [place] [facility] [address] [facility] [id number], [place] [address]- 8265 May, [facility] [place] [facility] [address] [id number] [place] [address]- 4203 May, [facility] [place] [facility] [address] [id number] [place] [address]- 5307 Apr, [facility] [place] [facility] [address] [id number] [place] [address]- 4413 Apr, [facility] [place] [facility] [address] [id number] [place] [address]- 4481 Apr, [facility] [place] [facility] [address] [id number] [place] [address]- 3463 Apr, [facility] [place] [facility] [address] [id number] [place] [address]- 1853 Mar, [facility] [place] [facility] [address] [id number] [place] [address]- 6749 Mar, [facility] [place] [facility] [address] [id number] [place] [address]- 6612 Mar, [facility] [place] [facility] [address] [id number] [place] [address]- 1539 Mar, [facility] [place] [facility] [address] [id number] [place] [address]- 9026 December, [facility] [place] [facility] [address] [id number] [place] [address]- 6322 December, [facility] [place] [facility] [address] [id number] [place] [address]- 6921 Nov, [facility] [place] [facility] [address] [id number] [place] [address]- 3890 Nov, [facility] [place] [facility] [address] [id number] [place] [address]- 1771 Sep, [facility] [place] [facility] [address] [id number] [place] [address]- 8974 Sep, [facility] [place] [facility] [address] [id number] [place] [address]- 0470 Sep, [facility] [place] [facility] [address] [id number] [place] 3942 Sep, [facility] [place] [facility] [address] [id number] [place] [address]- 6452 Aug, [facility] [place] [facility] [address] [id number] [place] [address]- 3200 Jul, [facility] [place] [facility] [address] [id number] [place] [address]- 7610 Jul, [facility] [place] [facility] [address] [id number] [place] [address]- 0593 Jun, [facility] [place] [facility] [address] [id number] [place] [address] Jun, [facility] [place] [facility] [address] [id number] [place] [address] May, [facility] [place] [facility] [address] [id number] [place] [address] May, [facility] [place] [facility] [address] [id number] [place] [address] May, [facility] [place] [facility] [address] [id number] [place] [address] 17 Apr, 2013 [facility] [place] [facility] [address] [id number], [place] [address] 16 Apr, 2013 [facility] [place] [facility] [address] [id number], [place] [address] Apr, [facility] [place] [facility] [address] [id number] [place] [address] Apr, [facility] [place] [facility] [address] [id number] [place] [address] Mar, [facility] [place] [facility] [address] [id number] [place] [address] Mar, [facility] [place] [facility] [address] [id number] [place] [address] December, [facility] [address] [id number] [place] [address] 11 Oct, 2012 [facility] [address] [id number] [place] [address] 11 Oct, 2012 [facility] [address] [id number] [place] [address] 10 Aug, 2012 [facility] [address] [id number] [place] [address] 17 Jul, 2012 [facility] [address] [id number] [place] [address] 17 Jul, 2012 [facility] [address] [id number] [place] [address] 13 Jul, 2012 [facility] [facility] [address] [id number] [place] [address] 13 Jul, 2012 [facility] [address] [id number] [place] [address] 14 Jun, 2012 [facility] [address] [id number] [place] [address] 14 Jun, 2012 [facility] [address] [id number] [place] [address] 14 Mar, 2012 [facility] [address] [id number] [place] [address] 16 Feb, 2012 [facility] [address] [id number] [place] [address] 16 Feb, 2012 [facility] [address] [id number] [place] [address] 15 Dec, 2011 [facility] [address] [id number] [place] [address] 17 Nov, 2011 [facility] [address] [id number] [place] [address] Oct, [facility] [address] [id number] [place] [address] Oct, [facility] [place] [facility] [address] [id number] [place] [address] Sep, [facility] [address] [id number] [place] [address] Sep, [facility] [address] [id number] [place] [address] Aug, [facility] [address] [id number] [place] [address] Aug, [facility] [address] [id number] [place] [address] Jul, [facility] [address] [id number] [place] [address] Jul, [facility] [address] [id number] [place] [address] Jul, [facility] [address] [id number] [place] [address] Jun, [facility] [address] [id number] [place] [address] 17 May, 2011 [facility] [place] [facility] [address] [id number] [place] [address] Apr, [facility] [place] [facility] [address] [id number], [place] [address] Feb, [facility] [place] [facility] [address] [id number] [place] [address] Sep, [facility] [place] [facility] [address] [id number], [place] [address] 22 Jul, 2010 [facility] [place] [facility] [address] [id number] [place] [address] 13 Jul, 2010 [facility] [place] [facility] [address] [facility] [id number], [place] [address] Jul, [facility] [address] [id number], [place] [address] Jul, [facility] [address] [id number], [place] [address] Jun, [facility] [id number], [place] [address] Feb, [facility] [id number], [place] [address] Jan, [facility] [id number], [place] [address] Feb, [facility] [address] [id number], [place] [address] Jul, IMMUNIZATIONS No Known Immunizations SOCIAL HISTORY Never Assessed REASON FOR VISIT EKG PLAN OF CARE Activity Details Future/Pending Procedure EEG VITAL SIGNS MEDICATIONS Unknown Medications RESULTS No [...]
--- OUTSIDE RECORDS SUMMARY | 2018-07-07 14:40 | XMS REPORT ---
Author Author JAGRUTI KORY [facility] Address [address] [place] [address] Care Team Providers Care Surgical Assistant Name Role Phone KORY CHAND Unavailable PROBLEMS Type Condition ICD9-CM Code MZZ13-HT Code Onset Dates Condition Status SNOMED Code Problem Anxiety, generalized F41.1 Active 45208875 Problem Post-traumatic stress disorder F43.10 Active 56752914 Problem Cannabis dependence F12.20 Active 24284827 Problem Seizures R56.9 Active 31017961 Problem Other chronic pain G89.29 Active 51291398 Problem Adjustment disorder with mixed anxiety and depressed mood F43.23 Active 72494033 Problem Chronic post-traumatic stress disorder (PTSD) F43.12 Active 758625495 Problem Adjustment disorder with depressed mood F43.21 Active 20040272 Problem Adjustment disorder with anxious mood F43.22 Active 11558232 Problem Bipolar disorder, unspecified F31.9 Active 05431496 Problem Gastroesophageal reflux disease without esophagitis K21.9 Active 035819991 Problem Cigarette nicotine dependence with other nicotine-induced disorder F17.218 Active 06673165 Problem Panic disorder with agoraphobia F40.01 Active 78788158 Problem Moderate persistent asthma without complication J45.40 Active 976871753 Problem Cannabis use disorder, moderate, dependence F12.20 Active 78135298 Problem Obstructive sleep apnea syndrome G47.33 Active 45969847 ALLERGIES No Information ENCOUNTERS Encounter Location Date Diagnosis [facility] [address] [facility] [id number] [address] Aug, [facility] [address] [address] 1785 Jun, [facility] [address] [id number] [address] 1715 Jun, [facility] [address] [id number] [address] 3375 Jun, [facility] [place] [facility] [address] [facility] [id number] [place] [address]- 8631 Jun, Seizures R56.9 [facility] [place] [facility] [address] [facility] [id number] [place] [address]- 4836 Jun, [facility] [place] [facility] [address] [facility] [id number] [place] [address], [place] [address]- 6706 May, [facility] [place] [facility] [address] [facility] [id number] [place] [address], [place] [address]- 7441 May, [facility] [place] [facility] [address] [id number] [place] [address], [place] [address]- 8963 May, [facility] [place] [facility] [address] [facility] [id number] [place] [address], [place] [address]- 9108 May, [facility] [place] [facility] [id number] [place] [address], [place] [address]- 5301 May, [facility] [place] [facility] [address] [facility] [id number] [place] [address]- 3511 May, [facility] [place] [facility] [id number] [place] [address], [place] [address]- 7397 May, [facility] [place] [facility] [address] [facility] [id number] [place] [address]- 1748 May, Seizures R56.9 [facility] [place] [facility] [address] [facility] [id number] [place] [address]- 0189 May, [facility] [place] [facility] [address] [facility] [id number] [place] [address]- 8323 Apr, [facility] [place] [facility] [address] [facility] [id number] [place] [address]- 4446 Apr, [facility] [place] [facility] [address] [facility] [id number] [place] [address]- 7088 Apr, [facility] [place] [facility] [address] [facility] [id number] [place] [address] 5[address] Apr, [place] [address] [address]- 8650 Apr, Bipolar disorder, unspecified F31.9 ; Panic disorder with agoraphobia F40.01 and Cannabis use disorder, moderate, dependence F12.20 [place] [address] [address]- 0855 Mar, [place] [id number] [place] [address] 36254- 5205 Mar, [place] [id number] [place] [address] 83185- 6172 Jan, Low back pain M54.5 ; Moderate persistent asthma without complication J45.40 and Other chronic pain G89.29 [place] [id number] [place] [address] 36931- 9678 Jan, Moderate persistent asthma without complication J45.40 ; Low back pain M54.5 ; Other chronic pain G89.29 ; Gastroesophageal reflux disease without esophagitis K21.9 and Cigarette nicotine dependence with other nicotine-induced disorder F17.218 [place] [id number] [place] [address] 65748- 4548 December, Bipolar disorder, unspecified F31.9 ; Panic disorder with agoraphobia F40.01 ; Cannabis use disorder, moderate, dependence F12.20 and Chronic post-traumatic stress disorder (PTSD) F43.12 [place] [address] [address]- 1788 December, [place] [address] [address]- 1030 December, [place] [id number] [place] [address] 86697- 8894 Nov, [place] [address] [address]- 1540 Oct, Bipolar disorder, unspecified F31.9 ; Chronic post- traumatic stress disorder (PTSD) F43.12 ; Panic disorder with agoraphobia F40.01 and Cannabis use disorder, moderate, dependence F12.20 [facility] [id number] [place] [address] 38918- 5788 Sep, [facility] [id number] [place] [address] 65769- 0789 Sep, [facility] [id number] [place] [address] 88564- 6740 Aug, [facility] [id number] [place] [address] 41524- 7894 Aug, Cannabis use disorder, moderate, dependence F12.20 ; Panic disorder with agoraphobia F40.01 and Bipolar affective disorder, currently depressed, moderate F31.32 [place] [id number] [place] [address] 68387- 1961 May, Diarrhea of presumed infectious origin A09 and Nausea and vomiting, intractability of vomiting not specified, unspecified vomiting type R11.2 [place] [id number] [place] [address] 90130- 4333 Apr, [place] [address] [address]- 9135 Mar, Nausea R11.0 and Gastroenteritis K52.9 [place] [id number] [place] [address] 62018- 6828 Mar, Gastroesophageal reflux disease without esophagitis K21.9 [place] [id number] [place] [address] 35042- 6773 Mar, Gastroesophageal reflux disease without esophagitis K21.9 [place] [id number] [place] [address] 42565- 6772 Mar, [facility] [id number] [place] [address] 51763- 5741 Mar, [place] [id number] [place] [address] 02425- 9559 Mar, [place] [id number] [place] [address] 00131- 9979 Feb, Acute pain of right shoulder M25.511 and Muscle spasm M62.838 [place] [id number] [place] [address] 35764- 5208 Feb, Acute labyrinthitis, unspecified laterality H83.09 [place] [address] 49057- 7369 December, [place] [id number] [place] [address] 68892- 9580 December, [place] [id number] [place] [address] 34809- 7141 December, Cannabis use disorder, moderate, dependence F12.20 ; Anxiety , generalized F41.1 ; Adjustment disorder with mixed anxiety and depressed mood F43.23 and Chronic post-traumatic stress disorder (PTSD) F43.12 [place] [id number] [place] [address] 54105- 0837 December, [place] [id number] [place] [address] 27941- 9860 December, [place] [id number] [place] [address] 81573- 0976 Nov, Acute nasopharyngitis J00 [place] [id number] [place] [address] 37878- 9212 Nov, Cannabis use disorder, moderate, dependence F12.20 ; Anxiety , generalized F41.1 ; Adjustment disorder with mixed anxiety and depressed mood F43.23 and Chronic post-traumatic stress disorder (PTSD) F43.12 [place] [id number] [place] [address] 37778- 3506 Nov, Cannabis use disorder, moderate, dependence F12.20 ; Anxiety , generalized F41.1 ; Adjustment disorder with mixed anxiety and depressed mood F43.23 and Chronic post-traumatic stress disorder (PTSD) F43.12 [place] [address] [address]- 6189 31 Oct, 2016 Diarrhea, unspecified R19.7 ; Vomiting, unspecified R11.10 and Viral gastroenteritis A08.4 [place] [id number] [place] [address] 28462- 4445 29 Oct, 2016 Bipolar disorder, unspecified F31.9 ; Panic disorder with agoraphobia F40.01 ; Cannabis use disorder, moderate, dependence F12.20 ; Cigarette nicotine dependence with other nicotine-induced disorder F17.218 ; Anxiety, generalized F41.1 ; Post-traumatic stress disorder F43.10 and Adjustment disorder with mixed anxiety and depressed mood F43.23 [place] [id number] [place] [address] 76905- 9344 Oct, Bipolar disorder, unspecified F31.9 ; Chronic post- traumatic stress disorder (PTSD) F43.12 ; Panic disorder with agoraphobia F40.01 and Cannabis use disorder, moderate, dependence F12.20 [id number] [place] [address] 70633- 2159 Oct, Bipolar disorder, unspecified F31.9 ; Panic disorder with agoraphobia F40.01 ; Cannabis use disorder, moderate, dependence F12.20 ; Cigarette nicotine dependence with other nicotine-induced disorder F17.218 ; Anxiety, generalized F41.1 ; Post-traumatic stress disorder F43.10 and Adjustment disorder with mixed anxiety and depressed mood F43.23 [place] [id number] [place] [address] 30502- 9763 14 Oct, 2016 Viral gastroenteritis A08.[address] [place] [address] 55226- 8897 09 Oct, 2016 Anxiety, generalized F41.1 ; Post-traumatic stress disorder F43.10 ; Adjustment disorder with depressed mood F43.21 and Adjustment disorder with anxious mood F43.22 [address] [place] [address] 35507- 9845 07 Oct, 2016 Panic disorder with agoraphobia F40.01 ; Cannabis use disorder, moderate, dependence F12.20 ; Bipolar disorder, unspecified F31.9 ; Cigarette nicotine dependence with other nicotine-induced disorder F17.218 ; Adjustment disorder with anxious mood F43.22 ; Anxiety, generalized F41.1 ; Post -traumatic stress disorder F43.10 and Cannabis dependence F12.20 [place] [id number] [place] [address] 74308- 716 Oct, Bipolar disorder, unspecified F31.9 and Chronic post- traumatic stress disorder (PTSD) F43.12 [place] [id number] [place] [address] Oct, Bipolar disorder, unspecified F31.9 and Chronic post- traumatic stress disorder (PTSD) F43.12 [place] [id number] [place]644 28 Sep, 2016 Bipolar disorder, unspecified F31.9 ; Panic disorder with agoraphobia F40.01 ; PTSD (post-traumatic stress disorder) F43.10 ; Cannabis use disorder, moderate, dependence F12.20 ; Cannabis dependence F12.20 and Anxiety, generalized F41.1 [place] [id number] [place] [address] 07908- 4280 Sep, Cannabis use disorder, moderate, dependence F12.20 ; Anxiety , generalized F41.1 and Adjustment disorder with mixed anxiety and depressed mood F43.23 [place] [id number] [place] [address] 08012- 2845 15 Sep, 2016 Bipolar disorder, unspecified F31.9 ; Panic disorder with agoraphobia F40.01 ; PTSD (post-traumatic stress disorder) F43.10 ; Cannabis use disorder, moderate, dependence F12.20 ; Cannabis dependence F12.20 and Anxiety, generalized F41.1 [place] [id number] [place] [address] 10 Sep, 2016 Bipolar disorder, unspecified F31.9 ; Panic disorder with agoraphobia F40.01 ; PTSD (post-traumatic stress disorder) F43.10 ; Cannabis use disorder, moderate, dependence F12.20 ; Cannabis dependence F12.20 and Anxiety, generalized F41.1 [place] [id number] [place] [address] 98614- 7684 08 Sep, 2016 Bipolar disorder, unspecified F31.9 ; Post-traumatic stress disorder F43.10 and Cannabis dependence F12.20 [place] [address] [address]48762-2546 Sep, [place] [address] [place] [address]- 4780 Sep, Suicidal behavior without attempted self-injury R46.89 [place] [id number] [place] [address]- 1278 Sep, [place] [id number] [place] [address] 720350- 4395 Sep, Cannabis use disorder, moderate, dependence F12.20 ; Panic disorder with agoraphobia F40.01 ; Bipolar disorder, unspecified F31.9 and Anxiety, generalized F41.1 [place] [id number] [place] [address] 96637- 3390 Sep, Bipolar disorder, unspecified F31.9 ; PTSD (post-traumatic stress disorder) F43.10 ; Panic disorder with agoraphobia F40.01 and Cannabis use disorder, moderate, dependence F12.20 [place] [address] [place] [address] 07680- 2964 Sep, [place] [id number] [place] [address] 01348- 0114 Sep, PTSD (post-traumatic stress disorder) F43.10 ; Cannabis use disorder, moderate, dependence F12.20 and Suicidal risk R45.89 [place] [id number] [place] [address] 17235- 2567 Sep, [place] [address] [place] [address] 91014- 9389 Jul, Bipolar disorder, unspecified F31.9 ; PTSD (post-traumatic stress disorder) F43.10 and Panic disorder with agoraphobia F40.01 [place] [address] [place] [address] 34895- 5777 13 Jul, 2016 Obstructive sleep apnea syndrome G47.33 ; Moderate persistent asthma without complication J45.40 and Cigarette nicotine dependence with other nicotine-induced disorder F17.218 [place] [address] [id number] [place] [address] 70676- 6555 05 Jul, 2016 [facility] [id number] [place] [address] 92598- 6012 05 Jul, 2016 [facility] [id number] [place] [address] 09317- 4915 May, [place] [id number] [place] [address] 00490- 9628 May, [place] [id number] [place] [address] 15109- 1827 May, [facility] [id number] [place] [address] 09403- 3968 Apr, [place] [id number] [place] [address] 79621- 5463 Apr, Bipolar disorder, unspecified F31.9 ; PTSD (post-traumatic stress disorder) F43.10 ; Panic disorder with agoraphobia F40.01 and Cannabis use disorder, moderate, dependence F12.20 [place] [address] [place] [address] 29307- 2426 Mar, Uncomplicated asthma, unspecified asthma severity J45.909 [place] [address] [place] [address] 05296- 4122 Mar, [place] [id number] [place] [address] 04263- 9279 Mar, Moderate persistent asthma without complication J45.40 ; Gastroesophageal reflux disease without esophagitis K21.9 and Cigarette nicotine dependence with other nicotine-induced disorder F17.218 [place] [address] [address]- 8680 Feb, [facility] [id number] [place] [address] 52256- 4047 Jan, Bipolar disorder, unspecified F31.9 ; PTSD (post-traumatic stress disorder) F43.10 ; Panic disorder with agoraphobia F40.01 and Cannabis use disorder, moderate, dependence F12.20 [facility] [id number] [place] [address] 58893- 3613 December, [facility] [id number] [place] [address] 36375- 1344 Nov, [place] [id number] [place] [address] 05594- 4295 Nov, Bipolar disorder, unspecified F31.9 ; PTSD (post-traumatic stress disorder) F43.10 ; Panic disorder with agoraphobia F40.01 and Cannabis use disorder, moderate, dependence F12.20 [place] [address] [place] [address] 11659- 2217 Oct, [place] [id number] [place] [address] 30933- 0427 Oct, [facility] [address] [place] [address] 81035- 2636 Sep, [place] [address] [place] [address] 47157- 3035 Sep, Bipolar disorder, unspecified F31.9 ; PTSD (post-traumatic stress disorder) F43.10 ; Panic disorder with agoraphobia F40.01 and Cannabis use disorder, moderate, dependence F12.20 [facility] [id number] [place] [address] 14473- 6623 Aug, [facility] [address] [place] [address] 41944- 7046 Aug, [facility] [id number] [place] [address] 18624- 4514 Aug, Bipolar disorder, unspecified F31.9 ; PTSD (post-traumatic stress disorder) F43.10 ; Panic disorder with agoraphobia F40.01 and Cannabis use disorder, moderate, dependence F12.20 [facility] [id number] [place] [address] 18940- 4586 Jul, [facility] [id number] [place] [address] 24377- 4326 Apr, GERD (gastroesophageal reflux disease) 530.81 and Internal hemorrhoids 455.0 [facility] [address] 45146- 8808 Feb, Rectal bleeding 569.3 and Hemorrhoids 455.6 [facility] [id number] [place] [address] 457546- 0836 Jan, Sinusitis 473.9 and Otitis media 382.9 [facility] [id number] [place] [address] 64319- 0805 December, [facility] [id number] [place] [address] 598040- 9271 Nov, [facility] [id number] [place] [address] 79355- 4206 Nov, [facility] [id number] [place] [address] 668314- 4114 Oct, [facility] [id number] [place] [address] 34484- 2366 Oct, [facility] [id number] [place] [address] 53135- 7795 Sep, [facility] [id number] [place] [address] 59629- 3496 Sep, [facility] [id number] [place] [address] 80581- 2156 Aug, [facility] [id number] [place] [address] 80856- 7779 Aug, [facility] [place] [facility] [address] [id number] [place] [address]- 0495 Jul, [facility] [place] [facility] [address] [id number] [place] [address]- 5403 Jul, [facility] [place] [facility] [address] [facility] [id number] [place] [address]- 0456 Jul, [facility] [place] [facility] [address] [id number] [place] [address]- 3493 Jul, [facility] [place] [facility] [address] [facility] [id number] [place] [address]- 6818 Jul, [facility] [place] [facility] [address] [id number] [place] [address]- 2561 Jul, [facility] [place] [facility] [address] [facility] [id number] [place] [address]- 5861 Jul, [facility] [place] [facility] [address] [id number] [place] [address]- 8392 Jul, [facility] [place] [facility] [address] [facility] [id number] [place] [address]- 6465 Jun, [facility] [place] [facility] [address] [facility] [id number] [address]- 2036 Jun, [facility] [place] [facility] [address] [id number] [place] [address]- 1385 Jun, [facility] [place] [facility] [address] [id number] [place] [address]- 4505 Jun, [facility] [place] [facility] [address] [id number] [place] [address]- 0216 May, [facility] [place] [facility] [address] [facility] [id number] [place] [address]- 4847 May, [facility] [place] [facility] [address] [facility] [id number] [place] [address]- 7812 May, [facility] [place] [facility] [address] [id number] [place] [address]- 6923 May, [facility] [place] [facility] [address] [id number] [place] [address]- 0766 Apr, [facility] [place] [facility] [address] [id number] [place] [address]- 6124 Apr, [facility] [place] [facility] [address] [id number] [place] [address]- 1486 Apr, [facility] [place] [facility] [address] [id number] [place] [address]- 0683 Apr, [facility] [place] [facility] [address] [id number] [place] [address]- 1502 Mar, [facility] [place] [facility] [address] [id number] [place] [address]- 5233 Mar, [facility] [place] [facility] [address] [id number] [place] [address]- 4354 Mar, [facility] [place] [facility] [address] [id number] [place] [address] Mar, [facility] [place] [facility] [address] [id number] [place] [address] December, [facility] [place] [facility] [address] [id number] [place] [address] December, [facility] [place] [facility] [address] [id number] [place] [address] Nov, [facility] [place] [facility] [address] [id number] [place] [address] Nov, [facility] [place] [facility] [address] [id number] [place] [address] Sep, [facility] [place] [facility] [address] [id number] [place] [address] Sep, [facility] [place] [facility] [address] [id number] [place] [address] Sep, [facility] [place] [facility] [address] [id number] [place] [address] Sep, [facility] [place] [facility] [address] [id number] [place] [address] Aug, [facility] [place] [facility] [address] [id number] [place] [address] Jul, [facility] [place] [facility] [address] [id number] [place] [address] Jul, [facility] [place] [facility] [address] [id number] [place] [address] Jun, [facility] [place] [facility] [address] [id number] [place] [address] Jun, [facility] [place] [facility] [address] [id number] [place] [address] May, [facility] [place] [facility] [address] [id number] [place] [address] May, [facility] [place] [facility] [address] [id number] [place] [address] May, [facility] [place] [facility] [address] [id number] [place] [address] 17 Apr, 2013 [facility] [place] [facility] [address] [id number] [address] 16 Apr, 2013 [facility] [place] [facility] [address] [id number] [place] [address] Apr, [facility] [place] [facility] [address] [id number] [place] [address] Apr, [facility] [place] [facility] [address] [id number] [place] [address] Mar, [facility] [place] [facility] [address] [id number] [place] [address] Mar, [facility] [place] [facility] [address] [id number] [place] [address] December, [facility] [address] [id number] [place] [address] 11 Oct, 2012 [facility] [address] [id number] [place] [address] 11 Oct, 2012 [facility] [address] [id number] [place] [address] 10 Aug, 2012 [facility] [address] [id number] [place] [address] 17 Jul, 2012 [facility] [address] [id number] [place] [address] 17 Jul, 2012 [facility] [address] [id number] [place] [address] 13 Jul, 2012 [facility] [address] [id number] [place] [address] 13 Jul, 2012 [facility] [address] [id number] [place] [address] 14 Jun, 2012 [facility] [address] [id number] [place] [address] 14 Jun, 2012 [facility] [address] [id number] [place] [address] 14 Mar, 2012 [facility] [address] [id number] [place] [address] 140[address] 16 Feb, 2012 [facility] [address] [id number] [place] [address] 16 Feb, 2012 [facility] [address] [id number] [place] [address] 15 Dec, 2011 [facility] [address] [id number] [place] [address]46 17 Nov, 2011 [facility] [address] [id number] [place] [address] Oct, [facility] [address] [id number] [place] [address] Oct, [facility] [place] [facility] [address] [id number] [place] [address] Sep, [facility] [address] [id number] [place] [address] Sep, [facility] [address] [id number] [place] [address] Aug, [facility] [address] [id number] [place] [address] Aug, [facility] [address] [id number] [place] [address] Jul, [facility] [address] [id number] [place] [address] Jul, [facility] [address] [id number] [place] [address] Jul, [facility] [address] [id number] [place] [address] Jun, [facility] [address] [id number] [place] [address]13 17 May, 2011 [facility] [place] [facility] [address] [id number] [place] [address] Apr, [facility] [place] [facility] [address] [id number] [address] Feb, [facility] [place] [facility] [address] [id number] [place] [address] Sep, [facility] [place] [facility] [address] [id number] [address] 22 Jul, 2010 [facility] [place] [facility] [address] [id number] [place] [address] 13 Jul, 2010 [facility] [place] [facility] [address] [facility] [id number] [address] Jul, [facility] [address] [id number] [address] Jul, [facility] [address] [id number] [address] Jun, [facility] [address] [id number] [address] Feb, [facility] [id number] [address] Jan, [facility] [id number] [address] Feb, [facility] [address] [id number] [address] Jul, IMMUNIZATIONS No Known Immunizations SOCIAL HISTORY Never Assessed REASON FOR VISIT Medication refill request PLAN OF CARE VITAL SIGNS MEDICATIONS Medication Instructions Dosage Frequency Start Date End Date Duration Status Loxapine Succinate 10 mg Orally at bedtime 4 capsules May, 90 days Active RESULTS No Results PROCEDURES [...]
--- OUTSIDE RECORDS SUMMARY | 2018-07-07 14:41 | XMS REPORT ---
Author Author JAGRUTI KORY [facility] Address [address] [place] [address] Care Team Providers Care Belt Back Operator Name Role Phone KORY CHAND Unavailable PROBLEMS Type Condition ICD9-CM Code OQY32-LR Code Onset Dates Condition Status SNOMED Code Problem Anxiety, generalized F41.1 Active 85994395 Problem Post-traumatic stress disorder F43.10 Active 44150109 Problem Cannabis dependence F12.20 Active 18712236 Problem Seizures R56.9 Active 91026558 Problem Other chronic pain G89.29 Active 14686337 Problem Adjustment disorder with mixed anxiety and depressed mood F43.23 Active 01849677 Problem Chronic post-traumatic stress disorder (PTSD) F43.12 Active 597072435 Problem Adjustment disorder with depressed mood F43.21 Active 22132209 Problem Adjustment disorder with anxious mood F43.22 Active 98373664 Problem Bipolar disorder, unspecified F31.9 Active 53218392 Problem Gastroesophageal reflux disease without esophagitis K21.9 Active 114651244 Problem Cigarette nicotine dependence with other nicotine-induced disorder F17.218 Active 32555209 Problem Panic disorder with agoraphobia F40.01 Active 05164812 Problem Moderate persistent asthma without complication J45.40 Active 802960616 Problem Cannabis use disorder, moderate, dependence F12.20 Active 64703665 Problem Obstructive sleep apnea syndrome G47.33 Active 86677907 ALLERGIES No Information ENCOUNTERS Encounter Location Date Diagnosis [facility] [address] [facility] [id number] [address] Aug, [facility] [address] [address] Jun, [facility] [address] [id number], [place] [address] 26[address] Jun, [facility] [address] [id number], [place] [address] 1208 Jun, [facility] [place] [facility] [address] [facility] [id number] [place] [address] Jun, Seizures R56.9 [facility] [place] [facility] [address] [facility] [id number] [place] [address]- 3[address] Jun, [facility] [place] [facility] [address] [facility] [id number] [place] [address], [place] [address]- 2[address] May, [facility] [place] [facility] [address] [facility] [id number] [place] [address], [place] [address]- 1514 May, [facility] [place] [facility] [id number] [place] [address], [place] [address]- 0686 May, [facility] [place] [facility] [address] [facility] [id number] [place] [address], [place] [address]- 3414 May, [facility] [place] [facility] [id number] [place] [address], [place] [address]- 6303 May, [facility] [place] [facility] [address] [facility] [id number] [place] [address]- 7895 May, [facility] [place] [facility] [id number] [place] [address], [place] [address]- 5828 May, [facility] [place] [facility] [address] [facility] [id number] [place] [address]- 2717 May, Seizures R56.9 [facility] [place] [facility] [address] [facility] [id number] [place] [address]- 9472 May, [facility] [place] [facility] [address] [facility] [id number], [place] [address] 0707 Apr, [facility] [place] [facility] [address] [facility] [id number] [place] [address]- 3349 Apr, [facility] [place] [facility] [address] [facility] [id number] [place] [address]- 0295 Apr, [facility] [place] [facility] [address] [facility] [id number], [place] [address] Apr, [place] [address], [place] [address] Apr, Bipolar disorder, unspecified F31.9 ; Panic disorder with agoraphobia F40.01 and Cannabis use disorder, moderate, dependence F12.20 [place] [address], [place] [address] 35[address] Mar, [place] [id number] [place] [address] 70394- 1092 Mar, [place] [id number] [place] [address] 37867- 6232 Jan, Low back pain M54.5 ; Moderate persistent asthma without complication J45.40 and Other chronic pain G89.29 [place] [id number] [place] [address] 95090- 0639 Jan, Moderate persistent asthma without complication J45.40 ; Low back pain M54.5 ; Other chronic pain G89.29 ; Gastroesophageal reflux disease without esophagitis K21.9 and Cigarette nicotine dependence with other nicotine-induced disorder F17.218 [place] [id number] [place] [address] 69055- 5725 December, Bipolar disorder, unspecified F31.9 ; Panic disorder with agoraphobia F40.01 ; Cannabis use disorder, moderate, dependence F12.20 and Chronic post-traumatic stress disorder (PTSD) F43.12 [place] [address], [place] [address]- 5254 December, [place] [address], [place] [address]- 9908 December, [place] [id number] [place] [address] 17046- 8455 Nov, [place] [address], [place] [address]- 0832 Oct, Bipolar disorder, unspecified F31.9 ; Chronic post- traumatic stress disorder (PTSD) F43.12 ; Panic disorder with agoraphobia F40.01 and Cannabis use disorder, moderate, dependence F12.20 [facility] [id number] [place] [address] 01207- 8261 Sep, [facility] [id number] [place] [address] 09055- 6811 Sep, [facility] [id number] [place] [address] 15394- 4658 Aug, [facility] [id number] [place] [address] 94098- 8601 Aug, Cannabis use disorder, moderate, dependence F12.20 ; Panic disorder with agoraphobia F40.01 and Bipolar affective disorder, currently depressed, moderate F31.32 [place] [id number] [place] [address] 10283- 8747 May, Diarrhea of presumed infectious origin A09 and Nausea and vomiting, intractability of vomiting not specified, unspecified vomiting type R11.2 [place] [id number] [place] [address] 27464- 8467 Apr, [place] [address] [address]- 6183 Mar, Nausea R11.0 and Gastroenteritis K52.9 [place] [id number] [place] [address] 57438- 3108 Mar, Gastroesophageal reflux disease without esophagitis K21.9 [place] [id number] [place] [address] 32843- 7983 Mar, Gastroesophageal reflux disease without esophagitis K21.9 [place] [id number] [place] [address] 06210- 8211 Mar, [facility] [id number] [place] [address] 12096- 0628 Mar, [place] [id number] [place] [address] 23587- 3100 Mar, [place] [id number] [place] [address] 85210- 3899 Feb, Acute pain of right shoulder M25.511 and Muscle spasm M62.838 [place] [id number] [place] [address] 56313- 4907 Feb, Acute labyrinthitis, unspecified laterality H83.09 [place] [address] 35291- 1704 December, [place] [id number] [place] [address] 62219- 4173 December, [place] [id number] [place] [address] 02969- 9979 December, Cannabis use disorder, moderate, dependence F12.20 ; Anxiety , generalized F41.1 ; Adjustment disorder with mixed anxiety and depressed mood F43.23 and Chronic post-traumatic stress disorder (PTSD) F43.12 [place] [id number] [place] [address] 61602- 8343 December, [place] [id number] [place] [address] 77498- 5688 December, [place] [id number] [place] [address] 87556- 4404 Nov, Acute nasopharyngitis J00 [place] [id number] [place] [address] 74568- 8915 Nov, Cannabis use disorder, moderate, dependence F12.20 ; Anxiety , generalized F41.1 ; Adjustment disorder with mixed anxiety and depressed mood F43.23 and Chronic post-traumatic stress disorder (PTSD) F43.12 [place] [id number] [place] [address] 27992- 1114 Nov, Cannabis use disorder, moderate, dependence F12.20 ; Anxiety , generalized F41.1 ; Adjustment disorder with mixed anxiety and depressed mood F43.23 and Chronic post-traumatic stress disorder (PTSD) F43.12 [place] [address], [place] [address] 9483 31 Oct, 2016 Diarrhea, unspecified R19.7 ; Vomiting, unspecified R11.10 and Viral gastroenteritis A08.4 [place] [id number] [place] [address] 81437- 8603 29 Oct, 2016 Bipolar disorder, unspecified F31.9 ; Panic disorder with agoraphobia F40.01 ; Cannabis use disorder, moderate, dependence F12.20 ; Cigarette nicotine dependence with other nicotine-induced disorder F17.218 ; Anxiety, generalized F41.1 ; Post-traumatic stress disorder F43.10 and Adjustment disorder with mixed anxiety and depressed mood F43.23 [place] [id number] [place] [address] 76340- 1718 Oct, Bipolar disorder, unspecified F31.9 ; Chronic post- traumatic stress disorder (PTSD) F43.12 ; Panic disorder with agoraphobia F40.01 and Cannabis use disorder, moderate, dependence F12.20 [id number] [place] [address] 52450- 4274 Oct, Bipolar disorder, unspecified F31.9 ; Panic disorder with agoraphobia F40.01 ; Cannabis use disorder, moderate, dependence F12.20 ; Cigarette nicotine dependence with other nicotine-induced disorder F17.218 ; Anxiety, generalized F41.1 ; Post-traumatic stress disorder F43.10 and Adjustment disorder with mixed anxiety and depressed mood F43.23 [place] [id number] [place] [address] 78157- 8295 14 Oct, 2016 Viral gastroenteritis A08.[address] [place] [address] 38068- 9444 09 Oct, 2016 Anxiety, generalized F41.1 ; Post-traumatic stress disorder F43.10 ; Adjustment disorder with depressed mood F43.21 and Adjustment disorder with anxious mood F43.22 [address] [place] [address] 44100- 3808 07 Oct, 2016 Panic disorder with agoraphobia F40.01 ; Cannabis use disorder, moderate, dependence F12.20 ; Bipolar disorder, unspecified F31.9 ; Cigarette nicotine dependence with other nicotine-induced disorder F17.218 ; Adjustment disorder with anxious mood F43.22 ; Anxiety, generalized F41.1 ; Post -traumatic stress disorder F43.10 and Cannabis dependence F12.20 [place] [id number] [place] [address] 72018- 407 Oct, Bipolar disorder, unspecified F31.9 and Chronic post- traumatic stress disorder (PTSD) F43.12 [place] [id number] [place] [address] [address]08 Oct, Bipolar disorder, unspecified F31.9 and Chronic post- traumatic stress disorder (PTSD) F43.12 [place] [id number] [place] 6679 28 Sep, 2016 Bipolar disorder, unspecified F31.9 ; Panic disorder with agoraphobia F40.01 ; PTSD (post-traumatic stress disorder) F43.10 ; Cannabis use disorder, moderate, dependence F12.20 ; Cannabis dependence F12.20 and Anxiety, generalized F41.1 [place] [id number] [place] [address] 39753- 7026 Sep, Cannabis use disorder, moderate, dependence F12.20 ; Anxiety , generalized F41.1 and Adjustment disorder with mixed anxiety and depressed mood F43.23 [place] [id number] [place] [address] 57329- 0101 15 Sep, 2016 Bipolar disorder, unspecified F31.9 ; Panic disorder with agoraphobia F40.01 ; PTSD (post-traumatic stress disorder) F43.10 ; Cannabis use disorder, moderate, dependence F12.20 ; Cannabis dependence F12.20 and Anxiety, generalized F41.1 [place] [id number] [place] [address]65 10 Sep, 2016 Bipolar disorder, unspecified F31.9 ; Panic disorder with agoraphobia F40.01 ; PTSD (post-traumatic stress disorder) F43.10 ; Cannabis use disorder, moderate, dependence F12.20 ; Cannabis dependence F12.20 and Anxiety, generalized F41.1 [place] [id number] [place] [address] 26022- 9511 08 Sep, 2016 Bipolar disorder, unspecified F31.9 ; Post-traumatic stress disorder F43.10 and Cannabis dependence F12.20 [place] [address] [id number] Sep, [place] [address] [place] [address]- 8550 Sep, Suicidal behavior without attempted self-injury R46.89 [place] [id number] [place] [address]- 1305 Sep, [place] [id number] [place] [address] 407043- 9752 Sep, Cannabis use disorder, moderate, dependence F12.20 ; Panic disorder with agoraphobia F40.01 ; Bipolar disorder, unspecified F31.9 and Anxiety, generalized F41.1 [place] [id number] [place] [address] 33049- 1351 Sep, Bipolar disorder, unspecified F31.9 ; PTSD (post-traumatic stress disorder) F43.10 ; Panic disorder with agoraphobia F40.01 and Cannabis use disorder, moderate, dependence F12.20 [place] [id number] [place] [address] 86367- 0510 Sep, [place] [id number] [place] [address] 69039- 7160 Sep, PTSD (post-traumatic stress disorder) F43.10 ; Cannabis use disorder, moderate, dependence F12.20 and Suicidal risk R45.89 [place] [id number] [place] [address] 24840- 4236 Sep, [place] [address] [place] [address] 61350- 9547 Jul, Bipolar disorder, unspecified F31.9 ; PTSD (post-traumatic stress disorder) F43.10 and Panic disorder with agoraphobia F40.01 [place] [address] [place] [address] 05052- 1323 13 Jul, 2016 Obstructive sleep apnea syndrome G47.33 ; Moderate persistent asthma without complication J45.40 and Cigarette nicotine dependence with other nicotine-induced disorder F17.218 [place] [id number] [place] [address] 30857- 8215 05 Jul, 2016 [facility] [id number] [place] [address] 94549- 6474 05 Jul, 2016 [facility] [id number] [place] [address] 02487- 4637 May, [place] [id number] [place] [address] 46773- 0298 May, [place] [id number] [place] [address] 57094- 3374 May, [facility] [id number] [place] [address] 89024- 9374 Apr, [place] [id number] [place] [address] 96477- 0488 Apr, Bipolar disorder, unspecified F31.9 ; PTSD (post-traumatic stress disorder) F43.10 ; Panic disorder with agoraphobia F40.01 and Cannabis use disorder, moderate, dependence F12.20 [place] [address] [place] [address] 35594- 4770 Mar, Uncomplicated asthma, unspecified asthma severity J45.909 [place] [address] [place] [address] 59059- 9512 Mar, [place] [id number] [place] [address] 64301- 2064 Mar, Moderate persistent asthma without complication J45.40 ; Gastroesophageal reflux disease without esophagitis K21.9 and Cigarette nicotine dependence with other nicotine-induced disorder F17.218 [place] [address], [place] [address]- 5853 Feb, [facility] [id number] [place] [address] 55358- 5754 Jan, Bipolar disorder, unspecified F31.9 ; PTSD (post-traumatic stress disorder) F43.10 ; Panic disorder with agoraphobia F40.01 and Cannabis use disorder, moderate, dependence F12.20 [facility] [id number] [place] [address] 34411- 0060 December, [facility] [id number] [place] [address] 44903- 9632 Nov, [place] [id number] [place] [address] 14380- 9048 Nov, Bipolar disorder, unspecified F31.9 ; PTSD (post-traumatic stress disorder) F43.10 ; Panic disorder with agoraphobia F40.01 and Cannabis use disorder, moderate, dependence F12.20 [place] [address] [place] [address] 11431- 5463 Oct, [place] [id number] [place] [address] 89488- 8785 Oct, [facility] [address] [place] [address] 46664- 5193 Sep, [place] [address] [place] [address] 57903- 7561 Sep, Bipolar disorder, unspecified F31.9 ; PTSD (post-traumatic stress disorder) F43.10 ; Panic disorder with agoraphobia F40.01 and Cannabis use disorder, moderate, dependence F12.20 [facility] [id number] [place] [address] 36065- 8896 Aug, [facility] [address] [place] [address] 89495- 7336 Aug, [facility] [id number] [place] [address] 08124- 4618 Aug, Bipolar disorder, unspecified F31.9 ; PTSD (post-traumatic stress disorder) F43.10 ; Panic disorder with agoraphobia F40.01 and Cannabis use disorder, moderate, dependence F12.20 [facility] [id number] [place] [address] 04918- 4146 Jul, [facility] [id number] [place] [address] 30202- 5438 Apr, GERD (gastroesophageal reflux disease) 530.81 and Internal hemorrhoids 455.0 [facility] [address] 70228- 0042 Feb, Rectal bleeding 569.3 and Hemorrhoids 455.6 [facility] [id number] [place] [address] 613209- 1250 Jan, Sinusitis 473.9 and Otitis media 382.9 [facility] [id number] [place] [address] 01655- 3417 December, [facility] [id number] [place] [address] 848652- 5151 Nov, [facility] [id number] [place] [address] 20308- 9055 Nov, [facility] [id number] [place] [address] 307733- 1659 Oct, [facility] [id number] [place] [address] 19174- 7136 Oct, [facility] [id number] [place] [address] 48896- 2919 Sep, [facility] [id number] [place] [address] 52469- 1026 Sep, [facility] [id number] [place] [address] 01135- 8206 Aug, [facility] [id number] [place] [address] 40173- 6699 Aug, [facility] [place] [facility] [address] [id number] [place] [address]- 3649 Jul, [facility] [place] [facility] [address] [id number] [place] [address]- 3178 Jul, [facility] [place] [facility] [address] [facility] [id number] [place] [address]- 7489 Jul, [facility] [place] [facility] [address] [id number] [place] [address]- 0065 Jul, [facility] [place] [facility] [address] [facility] [id number] [place] [address]- 9205 Jul, [facility] [place] [facility] [address] [id number] [place] [address]- 6637 Jul, [facility] [place] [facility] [address] [facility] [id number] [place] [address]- 6259 Jul, [facility] [place] [facility] [address] [id number] [place] [address]- 7133 Jul, [facility] [place] [facility] [address] [facility] [id number] [place] [address]- 1324 Jun, [facility] [place] [facility] [address] [facility] [id number], [place] [address]- 4286 Jun, [facility] [place] [facility] [address] [id number], [place] [address]- 8097 Jun, [facility] [place] [facility] [address] [id number], [place] [address]- 2645 Jun, [facility] [place] [facility] [address] [id number], [place] [address]- 4249 May, [facility] [place] [facility] [address] [facility] [id number], [place] [address]- 3758 May, [facility] [place] [facility] [address] [facility] [id number], [place] [address]- 8022 May, [facility] [place] [facility] [address] [id number] [place] [address]- 8374 May, [facility] [place] [facility] [address] [id number] [place] [address]- 7371 Apr, [facility] [place] [facility] [address] [id number] [place] [address]- 8688 Apr, [facility] [place] [facility] [address] [id number] [place] [address]- 8321 Apr, [facility] [place] [facility] [address] [id number] [place] [address]- 8664 Apr, [facility] [place] [facility] [address] [id number] [place] [address]- 2765 Mar, [facility] [place] [facility] [address] [id number] [place] [address]- 0018 Mar, [facility] [place] [facility] [address] [id number] [place] [address]- 9829 Mar, [facility] [place] [facility] [address] [id number] [place] [address]- 5672 Mar, [facility] [place] [facility] [address] [id number] [place] [address]- 4544 December, [facility] [place] [facility] [address] [id number] [place] [address]- 7171 December, [facility] [place] [facility] [address] [id number] [place] [address]- 8725 Nov, [facility] [place] [facility] [address] [id number] [place] [address]- 4590 Nov, [facility] [place] [facility] [address] [id number] [place] [address]- 2258 Sep, [facility] [place] [facility] [address] [id number] [place] [address]- 2229 Sep, [facility] [place] [facility] [address] [id number] [place] [address]- 7429 Sep, [facility] [place] [facility] [address] [id number] [place] 3143 Sep, [facility] [place] [facility] [address] [id number] [place] [address]- 6161 Aug, [facility] [place] [facility] [address] [id number] [place] [address]- 9824 Jul, [facility] [place] [facility] [address] [id number] [place] [address]- 7903 Jul, [facility] [place] [facility] [address] [id number] [place] [address]- 9547 Jun, [facility] [place] [facility] [address] [id number] [place] [address] Jun, [facility] [place] [facility] [address] [id number] [place] [address] May, [facility] [place] [facility] [address] [id number] [place] [address] May, [facility] [place] [facility] [address] [id number] [place] [address] May, [facility] [place] [facility] [address] [id number] [place] [address] 17 Apr, 2013 [facility] [place] [facility] [address] [id number], [place] [address] 16 Apr, 2013 [facility] [place] [facility] [address] [id number], [place] [address] Apr, [facility] [place] [facility] [address] [id number] [place] [address] Apr, [facility] [place] [facility] [address] [id number] [place] [address] Mar, [facility] [place] [facility] [address] [id number] [place] [address] Mar, [facility] [place] [facility] [address] [id number] [place] [address] December, [facility] [address] [id number] [place] [address] 11 Oct, 2012 [facility] [address] [id number] [place] [address] 11 Oct, 2012 [facility] [address] [id number] [place] [address] 10 Aug, 2012 [facility] [address] [id number] [place] [address] 17 Jul, 2012 [facility] [address] [id number] [place] [address] 17 Jul, 2012 [facility] [address] [id number] [place] [address] 13 Jul, 2012 [facility] [address] [id number] [place] [address] 13 Jul, 2012 [facility] [address] [id number] [place] [address] 14 Jun, 2012 [facility] [address] [id number] [place] [address] 14 Jun, 2012 [facility] [address] [id number] [place] [address] 14 Mar, 2012 [facility] [address] [id number] [place] [address] 16 Feb, 2012 [facility] [address] [id number] [place] [address] 16 Feb, 2012 [facility] [address] [id number] [place] [address] 15 Dec, 2011 [facility] [address] [id number] [place] [address] 17 Nov, 2011 [facility] [address] [id number] [place] [address] Oct, [facility] [address] [id number] [place] [address] Oct, [facility] [place] [facility] [address] [id number] [place] [address] Sep, [facility] [address] [id number] [place] [address] Sep, [facility] [address] [id number] [place] [address] Aug, [facility] [address] [id number] [place] [address] Aug, [facility] [address] [id number] [place] [address] Jul, [facility] [address] [id number] [place] [address] Jul, [facility] [address] [id number] [place] [address] Jul, [facility] [address] [id number] [place] [address] Jun, [facility] [address] [id number] [place] [address] 17 May, 2011 [facility] [place] [facility] [address] [id number] [place] [address] Apr, [facility] [place] [facility] [address] [id number], [place] [address] Feb, [facility] [place] [facility] [address] [id number] [place] [address] Sep, [facility] [place] [facility] [address] [id number], [place] [address] 22 Jul, 2010 [facility] [place] [facility] [address] [id number] [place] [address] 13 Jul, 2010 [facility] [place] [facility] [address] [facility] [id number], [place] [address] Jul, [facility] [address] [id number], [place] [address] Jul, [facility] [address] [id number], [place] [address] Jun, [facility] [address] [id number], [place] [address] Feb, [facility] [id number], [place] [address] Jan, [facility] [id number], [place] [address] Feb, [facility] [address] [id number] [address] Jul, IMMUNIZATIONS No Known Immunizations SOCIAL [...]
--- OUTSIDE RECORDS SUMMARY | 2018-07-07 14:41 | XMS REPORT ---
Author Author JAGRUTI KORY [facility] Address [address] [place] [address] Care Team Providers Care Chart Snatcher Name Role Phone KORY CHAND Unavailable PROBLEMS Type Condition ICD9-CM Code YCG43-RE Code Onset Dates Condition Status SNOMED Code Problem Anxiety, generalized F41.1 Active 00412014 Problem Post-traumatic stress disorder F43.10 Active 64619540 Problem Cannabis dependence F12.20 Active 26476565 Problem Seizures R56.9 Active 18556834 Problem Other chronic pain G89.29 Active 95028490 Problem Adjustment disorder with mixed anxiety and depressed mood F43.23 Active 59045162 Problem Chronic post-traumatic stress disorder (PTSD) F43.12 Active 157738699 Problem Adjustment disorder with depressed mood F43.21 Active 72168813 Problem Adjustment disorder with anxious mood F43.22 Active 55326227 Problem Bipolar disorder, unspecified F31.9 Active 65919991 Problem Gastroesophageal reflux disease without esophagitis K21.9 Active 994637956 Problem Cigarette nicotine dependence with other nicotine-induced disorder F17.218 Active 29582655 Problem Panic disorder with agoraphobia F40.01 Active 09671059 Problem Moderate persistent asthma without complication J45.40 Active 831747747 Problem Cannabis use disorder, moderate, dependence F12.20 Active 16178945 Problem Obstructive sleep apnea syndrome G47.33 Active 96649569 ALLERGIES No Information ENCOUNTERS Encounter Location Date Diagnosis [facility] [address] [facility] [id number] [address] Aug, [facility] [address], [place] [address] Jun, [facility] [address] [id number] [address] 2580 Jun, [facility] [address] [id number], [place] [address] May, [facility] [id number] [place] [address] 74263- 5683 May, [facility] [id number] [place] [address] 58638- 8763 May, [facility] [id number] [place] [address] 23834- 4243 May, [facility] [id number] [place] [address] 55354- 3394 May, [facility] [id number] [place] [address] 65976- 5837 May, [facility] [id number] [place] [address] 68597- 5602 May, [facility] [id number] [place] [address] 79656- 4502 May, Seizures R56.9 [facility] [id number] [place] [address] 63792- 2608 May, [facility] [id number] [place] [address] 09025- 5893 Apr, [facility] [id number] [place] [address] 74063- 8188 Apr, [facility] [id number] [place] [address] 02219- 4259 Apr, [facility] [id number] [place] [address] 62908- 1337 Apr, [facility] [id number] [place] [address] 53942- 7100 Apr, Bipolar disorder, unspecified F31.9 ; Panic disorder with agoraphobia F40.01 and Cannabis use disorder, moderate, dependence F12.20 [facility] [address], [place] [address] 5800 Mar, [facility] [id number] [place] [address] 69822- 2480 Mar, [place] [id number] [place] [address] 64037- 6587 04 Jan, 2018 Low back pain M54.5 ; Moderate persistent asthma without complication J45.40 and Other chronic pain G89.29 [place] [id number] [place] [address] 36193- 3260 Jan, Moderate persistent asthma without complication J45.40 ; Low back pain M54.5 ; Other chronic pain G89.29 ; Gastroesophageal reflux disease without esophagitis K21.9 and Cigarette nicotine dependence with other nicotine-induced disorder F17.218 [place] [id number] [place] [address] 76814- 7838 December, Bipolar disorder, unspecified F31.9 ; Panic disorder with agoraphobia F40.01 ; Cannabis use disorder, moderate, dependence F12.20 and Chronic post-traumatic stress disorder (PTSD) F43.12 [place] [id number] [place] [address] 73584- 2989 December, [place] [id number] [place] [address] 26800- 0961 December, [place] [id number] [place] [address] 05587- 7277 Nov, [place] [id number] [place] [address] 51897- 4925 Oct, Bipolar disorder, unspecified F31.9 ; Chronic post- traumatic stress disorder (PTSD) F43.12 ; Panic disorder with agoraphobia F40.01 and Cannabis use disorder, moderate, dependence F12.20 [place] [id number] [place] [address] 50804- 9685 Sep, [place] [id number] [place] [address] 62394- 1424 Sep, [place] [address] [place] [address] 10438- 3642 Aug, [place] [address] 12009- 2378 Aug, Cannabis use disorder, moderate, dependence F12.20 ; Panic disorder with agoraphobia F40.01 and Bipolar affective disorder, currently depressed, moderate F31.32 [place] [address] 62136- 7100 May, Diarrhea of presumed infectious origin A09 and Nausea and vomiting, intractability of vomiting not specified, unspecified vomiting type R11.2 [place] [address] 49217- 9315 Apr, [place] [address] 50972- 6762 Mar, Nausea R11.0 and Gastroenteritis K52.9 [place] [address] 90663- 3166 Mar, Gastroesophageal reflux disease without esophagitis K21.9 [place] [address] 91003- 5794 Mar, Gastroesophageal reflux disease without esophagitis K21.9 [place] [address] 30515- 7879 Mar, [place] [address] 67988- 4784 Mar, [place] [address] 73055- 7938 Mar, [place] [address] 92583- 8157 Feb, Acute pain of right shoulder M25.511 and Muscle spasm M62.838 [place] [id number] [place] [address] 10697- 1326 Feb, Acute labyrinthitis, unspecified laterality H83.09 [place] [address], [place] [address]- 8255 December, [place] [id number] [place] [address] 54802- 7686 December, [place] [id number] [place] [address] 40598- 3019 December, Cannabis use disorder, moderate, dependence F12.20 ; Anxiety , generalized F41.1 ; Adjustment disorder with mixed anxiety and depressed mood F43.23 and Chronic post-traumatic stress disorder (PTSD) F43.12 [place] [id number] [place] [address] 18561- 3754 December, [place] [id number] [place] [address] 73775- 2864 December, [place] [id number] [place] [address] 56383- 0663 Nov, Acute nasopharyngitis J00 [place] [id number] [place] [address] 05574- 3600 Nov, Cannabis use disorder, moderate, dependence F12.20 ; Anxiety , generalized F41.1 ; Adjustment disorder with mixed anxiety and depressed mood F43.23 and Chronic post-traumatic stress disorder (PTSD) F43.12 [place] [address] [place] [address] 97616- 0290 Nov, Cannabis use disorder, moderate, dependence F12.20 ; Anxiety , generalized F41.1 ; Adjustment disorder with mixed anxiety and depressed mood F43.23 and Chronic post-traumatic stress disorder (PTSD) F43.12 [place] [address], [place] [address]- 2759 Oct, Diarrhea, unspecified R19.7 ; Vomiting, unspecified R11.10 and Viral gastroenteritis A08.4 [place] [address] [place] [address] 14165- 1400 Oct, Bipolar disorder, unspecified F31.9 ; Panic disorder with agoraphobia F40.01 ; Cannabis use disorder, moderate, dependence F12.20 ; Cigarette nicotine dependence with other nicotine-induced disorder F17.218 ; Anxiety, generalized F41.1 ; Post-traumatic stress disorder F43.10 and Adjustment disorder with mixed anxiety and depressed mood F43.23 [place] [address] [place] [address] 49811- 5256 Oct, Bipolar disorder, unspecified F31.9 ; Chronic post- traumatic stress disorder (PTSD) F43.12 ; Panic disorder with agoraphobia F40.01 and Cannabis use disorder, moderate, dependence F12.20 [place] [id number] [place] [address] 21935- 0816 Oct, Bipolar disorder, unspecified F31.9 ; Panic disorder with agoraphobia F40.01 ; Cannabis use disorder, moderate, dependence F12.20 ; Cigarette nicotine dependence with other nicotine-induced disorder F17.218 ; Anxiety, generalized F41.1 ; Post-traumatic stress disorder F43.10 and Adjustment disorder with mixed anxiety and depressed mood F43.23 [place] [id number] [place] [address] 40224- 1602 14 Oct, 2016 Viral gastroenteritis A08.4 [id number] [place] [address] 73616- 8314 09 Oct, 2016 Anxiety, generalized F41.1 ; Post-traumatic stress disorder F43.10 ; Adjustment disorder with depressed mood F43.21 and Adjustment disorder with anxious mood F43.22 [place] [id number] [place] [address] 90776- 2383 07 Oct, 2016 Panic disorder with agoraphobia F40.01 ; Cannabis use disorder, moderate, dependence F12.20 ; Bipolar disorder, unspecified F31.9 ; Cigarette nicotine dependence with other nicotine-induced disorder F17.218 ; Adjustment disorder with anxious mood F43.22 ; Anxiety, generalized F41.1 ; Post -traumatic stress disorder F43.10 and Cannabis dependence F12.20 [place] [id number] [place] [address] 05949- 2626 02 Oct, 2016 Bipolar disorder, unspecified F31.9 and Chronic post- traumatic stress disorder (PTSD) F43.12 [place] [id number] [place] [address]- 244 Oct, Bipolar disorder, unspecified F31.9 and Chronic post- traumatic stress disorder (PTSD) F43.12 [place] [id number] [place] [address]- 450 28 Sep, 2016 Bipolar disorder, unspecified F31.9 ; Panic disorder with agoraphobia F40.01 ; PTSD (post-traumatic stress disorder) F43.10 ; Cannabis use disorder, moderate, dependence F12.20 ; Cannabis dependence F12.20 and Anxiety, generalized F41.1 [place] [id number] [place] [address]- 437 22 Sep, 2016 Cannabis use disorder, moderate, dependence F12.20 ; Anxiety , generalized F41.1 and Adjustment disorder with mixed anxiety and depressed mood F43.23 [place] [address]- 040 15 Sep, 2016 Bipolar disorder, unspecified F31.9 ; Panic disorder with agoraphobia F40.01 ; PTSD (post-traumatic stress disorder) F43.10 ; Cannabis use disorder, moderate, dependence F12.20 ; Cannabis dependence F12.20 and Anxiety, generalized F41.1 [place] [id number] [place] [address] 73428- 6616 Sep, Bipolar disorder, unspecified F31.9 ; Panic disorder with agoraphobia F40.01 ; PTSD (post-traumatic stress disorder) F43.10 ; Cannabis use disorder, moderate, dependence F12.20 ; Cannabis dependence F12.20 and Anxiety, generalized F41.1 [place] [id number] [place] [address] 2820 Sep, Bipolar disorder, unspecified F31.9 ; Post-traumatic stress disorder F43.10 and Cannabis dependence F12.20 [place] [id number] Sep, [id number] [place] [address] 46615- 4224 08 Sep, 2016 Suicidal behavior without attempted self-injury R46.89 [place] [id number] [place] [address] 43553- 7174 Sep, [place] [id number] [place] [address] 74876- 8946 Sep, Cannabis use disorder, moderate, dependence F12.20 ; Panic disorder with agoraphobia F40.01 ; Bipolar disorder, unspecified F31.9 and Anxiety, generalized F41.1 [place] [id number] [place] [address] 33535- 2252 Sep, Bipolar disorder, unspecified F31.9 ; PTSD (post-traumatic stress disorder) F43.10 ; Panic disorder with agoraphobia F40.01 and Cannabis use disorder, moderate, dependence F12.20 [place] [id number] [place] [address] 01717- 1049 Sep, [place] [id number] [place] [address] 07830- 7259 Sep, PTSD (post-traumatic stress disorder) F43.10 ; Cannabis use disorder, moderate, dependence F12.20 and Suicidal risk R45.89 [place] [id number] [place] [address] 41086- 1449 Sep, [place] [id number] [place] [address] 93617- 0361 Jul, Bipolar disorder, unspecified F31.9 ; PTSD (post-traumatic stress disorder) F43.10 and Panic disorder with agoraphobia F40.01 [place] [id number] [place] [address] 06108- 3288 13 Jul, 2016 Obstructive sleep apnea syndrome G47.33 ; Moderate persistent asthma without complication J45.40 and Cigarette nicotine dependence with other nicotine-induced disorder F17.218 [place] [id number] [place] [address]- 2546 Jul, [facility] [address], [place] [address]- 5552 Jul, [facility] [id number] [place] [address] 110991- 4252 May, [facility] [id number] [place] [address] 97199- 9055 May, [place] [id number] [place] [address] 871318- 2746 May, [facility] [id number] [place] [address] 87647- 1210 Apr, [place] [id number] [place] [address] 15009- 5266 Apr, Bipolar disorder, unspecified F31.9 ; PTSD (post-traumatic stress disorder) F43.10 ; Panic disorder with agoraphobia F40.01 and Cannabis use disorder, moderate, dependence F12.20 [place] [address] [place] [address] 41491- 4947 Mar, Uncomplicated asthma, unspecified asthma severity J45.909 [place] [address] [place] [address] 05975- 1762 Mar, [place] [address] [place] [address] 53213- 2230 Mar, Moderate persistent asthma without complication J45.40 ; Gastroesophageal reflux disease without esophagitis K21.9 and Cigarette nicotine dependence with other nicotine-induced disorder F17.218 [place] [address], [place] [address]- 9638 Feb, [place] [id number] [place] [address] 87137- 3477 Jan, Bipolar disorder, unspecified F31.9 ; PTSD (post-traumatic stress disorder) F43.10 ; Panic disorder with agoraphobia F40.01 and Cannabis use disorder, moderate, dependence F12.20 [facility] [address], [place] [address]- 3467 December, [facility] [id number] [place] [address] 76714- 5951 Nov, [facility] [address], [place] [address]- 2011 Nov, Bipolar disorder, unspecified F31.9 ; PTSD (post-traumatic stress disorder) F43.10 ; Panic disorder with agoraphobia F40.01 and Cannabis use disorder, moderate, dependence F12.20 [facility] [address], [place] [address]- 3177 Oct, [place] [id number] [place] [address] 28359- 2111 Oct, [place] [id number] [place] [address] 92455- 1858 Sep, [facility] [id number] [place] [address] 53062- 0984 Sep, Bipolar disorder, unspecified F31.9 ; PTSD (post-traumatic stress disorder) F43.10 ; Panic disorder with agoraphobia F40.01 and Cannabis use disorder, moderate, dependence F12.20 [place] [address], [place] [address]- 8133 Aug, [facility] [address], [place] [address]- 0184 Aug, [facility] [address], [place] [address]- 8214 Aug, Bipolar disorder, unspecified F31.9 ; PTSD (post-traumatic stress disorder) F43.10 ; Panic disorder with agoraphobia F40.01 and Cannabis use disorder, moderate, dependence F12.20 [facility] [address], [place] [address]- 9606 Jul, [facility] [id number] [place] [address] 67048- 5626 Apr, GERD (gastroesophageal reflux disease) 530.81 and Internal hemorrhoids 455.0 [facility] [id number] [place] [address] 76715- 4356 Feb, Rectal bleeding 569.3 and Hemorrhoids 455.6 [facility] [id number] [place] [address] 63650- 5076 Jan, Sinusitis 473.9 and Otitis media 382.9 [facility] [id number] [place] [address] 23504- 5259 December, [facility] [address] 67610- 2151 Nov, [facility] [id number] [place] [address] 18145- 6326 Nov, [facility] [id number] [place] [address] 14793- 7966 Oct, [facility] [id number] [place] [address] 93110- 7048 Oct, [facility] [id number] [place] [address] 07002- 2748 Sep, [facility] [id number] [place] [address] 98361- 4931 Sep, [facility] [address] [place] [address] 65203- 9896 Aug, [facility] [id number] [place] [address] 03605- 2176 Aug, [facility] [id number] [place] [address] 98181- 0376 Jul, [facility] [id number] [place] [address] 28126- 3726 Jul, [facility] [id number] [place] [address] 76888- 4322 Jul, [facility] [place] [facility] [address] [id number] [place] [address]- 8306 Jul, [facility] [place] [facility] [address] [id number] [place] [address]- 4156 Jul, [facility] [place] [facility] [address] [facility] [id number] [place] 3838 Jul, [facility] [place] [facility] [address] [id number] [place] 3014 Jul, [facility] [place] [facility] [address] [id number] [place] [address]- 4825 Jul, [facility] [place] [facility] [address] [id number] [place] [address]- 7247 Jun, [facility] [place] [facility] [address] [id number] [place] [address]- 7685 Jun, [facility] [place] [facility] [address] [id number], [place] [address]- 8294 Jun, [facility] [place] [facility] [address] [id number], [place] [address]- 3081 Jun, [facility] [place] [facility] [address] [id number], [place] [address]- 7656 May, [facility] [place] [facility] [address] [id number], [place] [address]- 9542 May, [facility] [place] [facility] [address] [id number], [place] [address]- 7609 May, [facility] [place] [facility] [address] [id number], [place] [address]- 9404 May, [facility] [place] [facility] [address] [id number], [place] [address]- 6227 Apr, [facility] [place] [facility] [address] [id number], [place] [address]- 4934 Apr, [facility] [place] [facility] [address] [id number] [place] [address]- 9158 Apr, [facility] [place] [facility] [address] [id number] [place] [address]- 8468 Apr, [facility] [place] [facility] [address] [id number] [place] [address]- 2195 Mar, [facility] [place] [facility] [address] [id number] [place] [address]- 8380 Mar, [facility] [place] [facility] [address] [id number] [place] [address]- 5934 Mar, [facility] [place] [facility] [address] [id number] [place] [address]- 9421 Mar, [facility] [place] [facility] [address] [id number] [place] [address]- 8476 December, [facility] [place] [facility] [address] [id number] [place] [address]- 8953 December, [facility] [place] [facility] [address] [id number] [place] [address]- 2925 Nov, [facility] [place] [facility] [address] [id number] [place] [address]- 1389 Nov, [facility] [place] [facility] [address] [id number] [place] [address]- 2104 Sep, [facility] [place] [facility] [address] [id number] [place] [address]- 9480 Sep, [facility] [place] [facility] [address] [id number] [place] [address]- 5948 Sep, [facility] [place] [facility] [address] [id number] [place] [address]- 7526 Sep, [facility] [place] [facility] [address] [id number] [place] [address]- 3011 Aug, [facility] [place] [facility] [address] [id number] [place] [address]- 9350 Jul, [facility] [place] [facility] [address] [id number] [place] [address]- 6330 Jul, [facility] [place] [facility] [address] [id number] [place] [address]- 6911 Jun, [facility] [place] [facility] [address] [id number] [place] [address]- 8613 Jun, [facility] [place] [facility] [address] [id number] [place] [address]- 1587 May, [facility] [place] [facility] [address] [id number] [place] [address]- 5075 May, [facility] [place] [facility] [address] [id number] [place] [address]- 9979 May, [facility] [place] [facility] [address] [id number] [place] [address]- 6427 17 Apr, 2013 [facility] [place] [facility] [address] [id number] [place] [address]- 5636 16 Apr, 2013 [facility] [place] [facility] [address] [id number] [place] [address]- 3753 09 Apr, 2013 [facility] [place] [facility] [address] [id number] [place] [address]- 0329 Apr, [facility] [place] [facility] [address] [id number], [place] [address]- 8637 Mar, [facility] [place] [facility] [address] [id number], [place] [address]- 1108 Mar, [facility] [place] [facility] [address] [id number] [place] [address]- 9594 December, [facility] [place] [facility] [address] [id number], [place] [address]- 7549 Oct, [facility] [place] [facility] [address] [id number] [place] [address] Oct, [facility] [place] [facility] [address] [id number] [place] [address] 10 Aug, 2012 [facility] [address] [id number] [place] [address] 17 Jul, 2012 [facility] [place] [facility] [address] [id number] [place] [address] 17 Jul, 2012 [facility] [address] [id number] [place] [address] 13 Jul, 2012 [facility] [place] [facility] [address] [id number] [place] [address] 13 Jul, 2012 [facility] [address] [id number] [place] [address] 14 Jun, 2012 [facility] [place] [facility] [address] [id number] [place] [address] 14 Jun, 2012 [facility] [address] [id number] [place] [address] 14 Mar, 2012 [facility] [place] [facility] [address] [id number] [place] [address] 16 Feb, 2012 [facility] [place] [facility] [address] [id number] [place] [address] 16 Feb, 2012 [facility] [place] [facility] [address] [id number] [place] [address] December, [facility] [place] [facility] [address] [id number] [place] [address] 17 Nov, 2011 [facility] [place] [facility] [address] [id number] [place] [address] Oct, [facility] [place] [facility] [address] [id number] [place] [address] Oct, [facility] [place] [facility] [address] [id number] [place] [address] Sep, [facility] [place] [facility] [address] [id number] [place] [address] Sep, [facility] [place] [facility] [address] [id number] [place] [address] Aug, [facility] [facility] [address] [id number] [place] [address] Aug, [facility] [address] [id number] [place] [id number] Jul, [facility] [address] [id number] [place] [address] Jul, [facility] [address] [id number] [place] [address] Jul, [facility] [address] [id number] [place] [address] Jun, [facility] [address] [id number] [place] [address] May, [facility] [address] [id number] [place] [address] Apr, [facility] [address] [id number] [place] [address] Feb, [facility] [address] [id number] [place] [id number] Sep, [facility] [address] [id number] [place] [address] Jul, [facility] [place] [facility] [address] [id number] [place] [address] Jul, [facility] [place] [facility] [address] [id number] [place] [address] Jul, [facility] [place] [facility] [address] [id number] [place] [address] Jul, [facility] [place] [facility] [address] [id number] [place] [address] Jun, [facility] [place] [facility] [address] [id number] [place] [address] Feb, [facility] [address] [facility] [id number] [address] Jan, [facility] [address] [facility] [id number], [place] [address] Feb, [facility] [address] [facility] [id number], [place] [address] Jul, IMMUNIZATIONS No Known Immunizations SOCIAL HISTORY Never Assessed REASON FOR VISIT medication PLAN OF CARE VITAL SIGNS MEDICATIONS Medication Instructions Dosage Frequency Start Date End Date Duration Status Loxapine Succinate 10 mg Orally at bedtime 4 capsules May, 30 day(s) Active RESULTS No Results PROCEDURES No Known [...]
--- OUTSIDE RECORDS SUMMARY | 2018-07-07 14:42 | XMS REPORT ---
Author Author PETRA GARZON [facility] Address [address] [place] [address] Care Team Providers Care Winter Intern Name Role Phone PETRA GARZON Unavailable PROBLEMS Type Condition ICD9-CM Code [id number] Code Onset Dates Condition Status SNOMED Code Problem Anxiety, generalized F41.1 Active 69983340 Problem Post-traumatic stress disorder F43.10 Active 16411197 Problem Cannabis dependence F12.20 Active 06316100 Problem Seizures R56.9 Active 35348944 Problem Other chronic pain G89.29 Active 58197898 Problem Adjustment disorder with mixed anxiety and depressed mood F43.23 Active 12664122 Problem Chronic post-traumatic stress disorder (PTSD) F43.12 Active 706185462 Problem Adjustment disorder with depressed mood F43.21 Active 67967423 Problem Adjustment disorder with anxious mood F43.22 Active 21043609 Problem Bipolar disorder, unspecified F31.9 Active 28303356 Problem Gastroesophageal reflux disease without esophagitis K21.9 Active 476331092 Problem Cigarette nicotine dependence with other nicotine-induced disorder F17.218 Active 60392546 Problem Panic disorder with agoraphobia F40.01 Active 73920404 Problem Moderate persistent asthma without complication J45.40 Active 875906156 Problem Cannabis use disorder, moderate, dependence F12.20 Active 36641922 Problem Obstructive sleep apnea syndrome G47.33 Active 97175821 ALLERGIES No Information ENCOUNTERS Encounter Location Date Diagnosis [facility] [address] [facility] [id number] [address] Aug, [facility] [address] [address] May, [facility] [address] [address] 69[address] May, [facility] [id number] [address] 478[address] May, [facility] [id number] [place] [address] 49090- 9972 May, [facility] [id number] [place] [address] 94423- 5502 May, [facility] [id number] [place] [address] 27097- 1736 May, [facility] [id number] [place] [address] 80593- 2416 May, [facility] [id number] [place] [address] 48073- 6164 May, Seizures R56.9 [facility] [id number] [place] [address] 36047- 5300 May, [facility] [id number] [place] [address] 44424- 4857 Apr, [facility] [id number] [place] [address] 14848- 2789 Apr, [facility] [id number] [place] [address] 90109- 3211 Apr, [facility] [id number] [place] [address] 61251- 6482 Apr, [facility] [id number] [place] [address] 36967- 3048 Apr, Bipolar disorder, unspecified F31.9 ; Panic disorder with agoraphobia F40.01 and Cannabis use disorder, moderate, dependence F12.20 [facility] [id number] [place] [address] 60446- 8214 Mar, [facility] [id number] [place] [address] 13393- 8594 Mar, [facility] [id number] [place] [address] 94141- 6241 Jan, Low back pain M54.5 ; Moderate persistent asthma without complication J45.40 and Other chronic pain G89.29 [place] [id number] [place] [address] 60026- 9420 Jan, Moderate persistent asthma without complication J45.40 ; Low back pain M54.5 ; Other chronic pain G89.29 ; Gastroesophageal reflux disease without esophagitis K21.9 and Cigarette nicotine dependence with other nicotine-induced disorder F17.218 [place] [address] 62684- 9798 December, Bipolar disorder, unspecified F31.9 ; Panic disorder with agoraphobia F40.01 ; Cannabis use disorder, moderate, dependence F12.20 and Chronic post-traumatic stress disorder (PTSD) F43.12 [place] [id number] [place] [address] 42172- 0948 December, [place] [address] 92371- 0096 December, [place] [id number] [place] [address] 23242- 8325 Nov, [place] [address] 85138- 5995 Oct, Bipolar disorder, unspecified F31.9 ; Chronic post- traumatic stress disorder (PTSD) F43.12 ; Panic disorder with agoraphobia F40.01 and Cannabis use disorder, moderate, dependence F12.20 [place] [id number] [place] [address] 35160- 9416 Sep, [place] [id number] [place] [address] 56344- 7883 Sep, [place] [id number] [place] [address] 87227- 9606 Aug, [place] [id number] [place] [address] 13305- 1646 Aug, Cannabis use disorder, moderate, dependence F12.20 ; Panic disorder with agoraphobia F40.01 and Bipolar affective disorder, currently depressed, moderate F31.32 [facility] [id number] [place] [address] 22929- 0740 May, Diarrhea of presumed infectious origin A09 and Nausea and vomiting, intractability of vomiting not specified, unspecified vomiting type R11.2 [facility] [address] 25912- 5389 Apr, [facility] [address] 26128- 7887 Mar, Nausea R11.0 and Gastroenteritis K52.9 [place] [address] 91524- 0082 Mar, Gastroesophageal reflux disease without esophagitis K21.9 [place] [address] 71749- 1934 Mar, Gastroesophageal reflux disease without esophagitis K21.9 [place] [address] 98203- 1711 Mar, [place] [address] 30470- 7344 Mar, [facility] [place] [id number] [place] [address] 15153- 4101 Mar, [facility] [id number] [place] [address] 86117- 4152 Feb, Acute pain of right shoulder M25.511 and Muscle spasm M62.838 [facility] [id number] [place] [address] 87442- 5383 Feb, Acute labyrinthitis, unspecified laterality H83.09 [facility] [id number] [place] [address] 45787- 7754 December, [facility] [id number] [place] [address] 70696- 5941 December, [place] [address] [address] 00[address] December, Cannabis use disorder, moderate, dependence F12.20 ; Anxiety , generalized F41.1 ; Adjustment disorder with mixed anxiety and depressed mood F43.23 and Chronic post-traumatic stress disorder (PTSD) F43.12 [place] [address] [address]- 0351 December, [place] [id number] [place] [address] 09495- 0135 December, [place] [id number] [place] [address] 91383- 2320 Nov, Acute nasopharyngitis J00 [place] [id number] [place] [address] 96799- 8315 Nov, Cannabis use disorder, moderate, dependence F12.20 ; Anxiety , generalized F41.1 ; Adjustment disorder with mixed anxiety and depressed mood F43.23 and Chronic post-traumatic stress disorder (PTSD) F43.12 [place] [id number] [place] [address] 83741- 3387 Nov, Cannabis use disorder, moderate, dependence F12.20 ; Anxiety , generalized F41.1 ; Adjustment disorder with mixed anxiety and depressed mood F43.23 and Chronic post-traumatic stress disorder (PTSD) F43.12 [place] [id number] [place] [address] 89498- 2323 Oct, Diarrhea, unspecified R19.7 ; Vomiting, unspecified R11.10 and Viral gastroenteritis A08.4 [place] [address] [address]- 5422 Oct, Bipolar disorder, unspecified F31.9 ; Panic disorder with agoraphobia F40.01 ; Cannabis use disorder, moderate, dependence F12.20 ; Cigarette nicotine dependence with other nicotine-induced disorder F17.218 ; Anxiety, generalized F41.1 ; Post-traumatic stress disorder F43.10 and Adjustment disorder with mixed anxiety and depressed mood F43.23 [place] [address] [address]- 8635 Oct, Bipolar disorder, unspecified F31.9 ; Chronic post- traumatic stress disorder (PTSD) F43.12 ; Panic disorder with agoraphobia F40.01 and Cannabis use disorder, moderate, dependence F12.20 [place] [id number] [place] [address] 78309- 6330 Oct, Bipolar disorder, unspecified F31.9 ; Panic disorder with agoraphobia F40.01 ; Cannabis use disorder, moderate, dependence F12.20 ; Cigarette nicotine dependence with other nicotine-induced disorder F17.218 ; Anxiety, generalized F41.1 ; Post-traumatic stress disorder F43.10 and Adjustment disorder with mixed anxiety and depressed mood F43.23 [place] [id number] [place] [address] 01604- 4793 14 Oct, 2016 Viral gastroenteritis A08.4 [place] [id number] [place] [address] 14330- 9806 Oct, Anxiety, generalized F41.1 ; Post-traumatic stress disorder F43.10 ; Adjustment disorder with depressed mood F43.21 and Adjustment disorder with anxious mood F43.22 [place] [id number] [place] [address] 97227- 4693 07 Oct, 2016 Panic disorder with agoraphobia F40.01 ; Cannabis use disorder, moderate, dependence F12.20 ; Bipolar disorder, unspecified F31.9 ; Cigarette nicotine dependence with other nicotine-induced disorder F17.218 ; Adjustment disorder with anxious mood F43.22 ; Anxiety, generalized F41.1 ; Post -traumatic stress disorder F43.10 and Cannabis dependence F12.20 [place] [id number] [place] [address] 46332- 3993 Oct, Bipolar disorder, unspecified F31.9 and Chronic post- traumatic stress disorder (PTSD) F43.12 [place] [id number] [place] [address] 47070- 5155 Oct, Bipolar disorder, unspecified F31.9 and Chronic post- traumatic stress disorder (PTSD) F43.12 [place] [address] [place] [address] 28 Sep, 2016 Bipolar disorder, unspecified F31.9 ; Panic disorder with agoraphobia F40.01 ; PTSD (post-traumatic stress disorder) F43.10 ; Cannabis use disorder, moderate, dependence F12.20 ; Cannabis dependence F12.20 and Anxiety, generalized F41.1 [place] [id number] [place] [address] 9105 Sep, Cannabis use disorder, moderate, dependence F12.20 ; Anxiety , generalized F41.1 and Adjustment disorder with mixed anxiety and depressed mood F43.23 [place] [id number] [place] [address]- 227 15 Sep, 2016 Bipolar disorder, unspecified F31.9 ; Panic disorder with agoraphobia F40.01 ; PTSD (post-traumatic stress disorder) F43.10 ; Cannabis use disorder, moderate, dependence F12.20 ; Cannabis dependence F12.20 and Anxiety, generalized F41.1 [place] [id number] [place] [address] 51832- 9221 Sep, Bipolar disorder, unspecified F31.9 ; Panic disorder with agoraphobia F40.01 ; PTSD (post-traumatic stress disorder) F43.10 ; Cannabis use disorder, moderate, dependence F12.20 ; Cannabis dependence F12.20 and Anxiety, generalized F41.1 [place] [id number] [place] [address] 51286- 7234 Sep, Bipolar disorder, unspecified F31.9 ; Post-traumatic stress disorder F43.10 and Cannabis dependence F12.20 [place] [address]35[address] [address], [place] [address]8763- 8780 Sep, Suicidal behavior without attempted self-injury R46.89 [place] [address]8762- 4280 Sep, [place] [id number] [place] [address] 39490- 2582 Sep, Cannabis use disorder, moderate, dependence F12.20 ; Panic disorder with agoraphobia F40.01 ; Bipolar disorder, unspecified F31.9 and Anxiety, generalized F41.1 [place] [address] 99211- 4078 Sep, Bipolar disorder, unspecified F31.9 ; PTSD (post-traumatic stress disorder) F43.10 ; Panic disorder with agoraphobia F40.01 and Cannabis use disorder, moderate, dependence F12.20 [place] [address] 56211- 0170 Sep, [place] [address] 97019- 9083 Sep, PTSD (post-traumatic stress disorder) F43.10 ; Cannabis use disorder, moderate, dependence F12.20 and Suicidal risk R45.89 [place] [address] 62863- 2420 Sep, [place] [address] 47865- 5372 Jul, Bipolar disorder, unspecified F31.9 ; PTSD (post-traumatic stress disorder) F43.10 and Panic disorder with agoraphobia F40.01 [place] [address] 31411- 4902 Jul, Obstructive sleep apnea syndrome G47.33 ; Moderate persistent asthma without complication J45.40 and Cigarette nicotine dependence with other nicotine-induced disorder F17.218 [place] [address] 58460- 3756 Jul, [place] [address] 80519- 5044 Jul, [place] [address] 73379- 8695 May, [place] [address] [address]- 1554 May, [place] [address] [place] [address] 819264- 5077 May, [place] [address] [address]- 3383 Apr, [place] [id number] [place] [address] 66558- 0627 Apr, Bipolar disorder, unspecified F31.9 ; PTSD (post-traumatic stress disorder) F43.10 ; Panic disorder with agoraphobia F40.01 and Cannabis use disorder, moderate, dependence F12.20 [place] [address] [place] [address] 80744- 6226 Mar, Uncomplicated asthma, unspecified asthma severity J45.909 [place] [id number] [place] [address] 96778- 2824 Mar, [place] [id number] [place] [address] 72519- 0071 Mar, Moderate persistent asthma without complication J45.40 ; Gastroesophageal reflux disease without esophagitis K21.9 and Cigarette nicotine dependence with other nicotine-induced disorder F17.218 [place] [address] [address]- 9535 Feb, [place] [id number] [place] [address] 26665- 6489 Jan, Bipolar disorder, unspecified F31.9 ; PTSD (post-traumatic stress disorder) F43.10 ; Panic disorder with agoraphobia F40.01 and Cannabis use disorder, moderate, dependence F12.20 [place] [address] [address]- 9305 December, [place] [id number] [place] [address] 09169- 9208 Nov, [place] [address] [address]- 0993 Nov, Bipolar disorder, unspecified F31.9 ; PTSD (post-traumatic stress disorder) F43.10 ; Panic disorder with agoraphobia F40.01 and Cannabis use disorder, moderate, dependence F12.20 [facility] [id number] [place] [address] 63447- 6979 Oct, [place] [id number] [place] [address] 94844- 0720 Oct, [place] [id number] [place] [address] 62060- 3331 Sep, [place] [id number] [place] [address] 61526- 2302 Sep, Bipolar disorder, unspecified F31.9 ; PTSD (post-traumatic stress disorder) F43.10 ; Panic disorder with agoraphobia F40.01 and Cannabis use disorder, moderate, dependence F12.20 [place] [id number] [place] [address] 25898- 4259 Aug, [place] [id number] [place] [address] 87356- 1012 Aug, [place] [id number] [place] [address] 89960- 1786 Aug, Bipolar disorder, unspecified F31.9 ; PTSD (post-traumatic stress disorder) F43.10 ; Panic disorder with agoraphobia F40.01 and Cannabis use disorder, moderate, dependence F12.20 [place] [id number] [place] [address] 88317- 5226 Jul, [place] [id number] [place] [address] 08028- 1945 Apr, GERD (gastroesophageal reflux disease) 530.81 and Internal hemorrhoids 455.0 [place] [id number] [place] [address] 24533- 3389 Feb, Rectal bleeding 569.3 and Hemorrhoids 455.6 [facility] [address] [place] [address] 33132- 9729 Jan, Sinusitis 473.9 and Otitis media 382.9 [facility] [id number] [address]- 3261 December, [facility] [id number] [place] [address] 69809- 8575 Nov, [facility] [address] [facility] [id number] [place] [address] 86447- 3799 Nov, [facility] [id number] [place] [address] 55752- 7652 Oct, [facility] [id number] [place] [address] 03897- 2034 Oct, [facility] [id number] [place] [address] 71954- 9786 Sep, [facility] [address] [place] [address] 94974- 1284 Sep, [facility] [address] [place] [address] 17733- 7380 Aug, [facility] [address] [address]- 0020 Aug, [facility] [address] [address]- 7372 Jul, [facility] [address] 9206 Jul, [facility] [id number] [place] [address] 49763- 3086 Jul, [facility] [address] 7692 Jul, [facility] [id number] [place] [address] 75148- 6987 Jul, [facility] [place] [facility] [address] [id number] [place] [address]- 7682 Jul, [facility] [place] [facility] [address] [id number] [place] 3782 Jul, [facility] [place] [facility] [address] [facility] [id number] [place] 6936 Jul, [facility] [place] [facility] [address] [id number] [place] [address]- 4095 Jun, [facility] [place] [facility] [address] [id number] [place] [address]- 3844 Jun, [facility] [place] [facility] [address] [id number] [place] [address]- 3657 Jun, [facility] [place] [facility] [address] [id number] [place] [address]- 7747 Jun, [facility] [place] [facility] [address] [id number] [address]- 9245 May, [facility] [place] [facility] [address] [id number] [place] [address]- 4648 May, [facility] [place] [facility] [address] [id number] [place] [address]- 1350 May, [facility] [place] [facility] [address] [id number] [place] [address]- 1651 May, [facility] [place] [facility] [address] [id number] [place] [address]- 3633 Apr, [facility] [place] [facility] [address] [id number] [place] [address]- 5655 Apr, [facility] [place] [facility] [address] [id number] [place] [address]- 4738 Apr, [facility] [place] [facility] [address] [id number] [place] [address]- 4882 Apr, [facility] [place] [facility] [address] [id number] [place] [address]- 4249 Mar, [facility] [address] [id number] [place] [address]- 2171 Mar, [facility] [place] [facility] [address] [id number] [place] [address]- 6615 Mar, [facility] [place] [facility] [address] [id number] [place] [address]- 0131 Mar, [facility] [place] [facility] [address] [id number] [place] [address]- 6008 December, [facility] [place] [facility] [address] [id number] [place] [address]- 4834 December, [facility] [place] [facility] [address] [id number] [place] [address]- 6900 Nov, [facility] [place] [facility] [address] [id number] [place] [address]- 9834 Nov, [facility] [place] [facility] [address] [id number] [place] [address]- 2393 Sep, [facility] [place] [facility] [address] [id number] [place] [address]- 3859 Sep, [facility] [place] [facility] [address] [id number] [place] [address]- 2225 Sep, [facility] [place] [facility] [address] [id number] [place] [address]- 4340 Sep, [facility] [place] [facility] [address] [id number] [place] [address]- 1373 Aug, [facility] [place] [facility] [address] [id number] [place] [address]- 4787 Jul, [facility] [place] [facility] [address] [id number] [place] [address]- 9666 Jul, [facility] [place] [facility] [address] [id number] [place] [address]- 7690 Jun, [facility] [place] [facility] [address] [id number] [place] [address]- 6696 11 Jun, 2013 [facility] [place] [facility] [address] [id number] [place] [address]- 4904 May, [facility] [place] [facility] [address] [id number] [place] [address]- 7482 18 May, 2013 [facility] [place] [facility] [address] [id number] [place] [address]- 4767 07 May, 2013 [facility] [place] [facility] [address] [id number] [place] [address]- 3420 17 Apr, 2013 [facility] [place] [facility] [address] [id number] [place] [address]- 1494 16 Apr, 2013 [facility] [place] [facility] [address] [id number] [place] [address]- 1790 Apr, [facility] [place] [facility] [address] [id number] [place] [address]- 2625 09 Apr, 2013 [facility] [place] [facility] [address] [id number] [place] [address]- 9909 Mar, [facility] [place] [facility] [address] [id number] [place] [address]- 2314 Mar, [facility] [place] [facility] [address] [id number] [place] [address]- 9381 December, [facility] [place] [facility] [address] [id number] [place] [address]- 2073 Oct, [facility] [place] [facility] [address] [id number] [place] [address] Oct, [facility] [place] [facility] [address] [id number] [place] [address] Aug, [facility] [place] [facility] [address] [id number] [place] [address] Jul, [facility] [place] [facility] [address] [id number] [place] [address] 17 Jul, 2012 [facility] [address] [id number] [place] [address] 13 Jul, 2012 [facility] [place] [facility] [address] [id number] [place] [address] 13 Jul, 2012 [facility] [address] [id number] [place] [address] 14 Jun, 2012 [facility] [place] [facility] [address] [id number] [place] [address] 14 Jun, 2012 [facility] [place] [facility] [address] [id number] [place] [address] 14 Mar, 2012 [facility] [place] [facility] [address] [id number] [place] [address] 16 Feb, 2012 [facility] [address] [id number] [place] [address] 16 Feb, 2012 [facility] [place] [facility] [address] [id number] [place] [address] 15 Dec, 2011 [facility] [place] [facility] [address] [id number] [place] [address] 17 Nov, 2011 [facility] [place] [facility] [address] [id number] [place] [address] 23 Oct, 2011 [facility] [place] [facility] [address] [id number] [place] [address] Oct, [facility] [place] [facility] [address] [id number] [place] [address] Sep, [facility] [place] [facility] [address] [id number] [place] [address] Sep, [facility] [place] [facility] [address] [id number] [place] [address] 19 Aug, 2011 [facility] [place] [facility] [address] [id number] [place] [address] 13 Aug, 2011 [facility] [place] [facility] [address] [id number] [place] [address] Jul, [facility] [place] [facility] [address] [id number] [place] [address] Jul, [facility] [place] [facility] [address] [id number] [place] [address] Jul, [facility] [place] [facility] [address] [id number] [place] [address] Jun, [facility] [address] [id number] [place] [address] 17 May, 2011 [facility] [facility] [address] [id number] [place] [address] Apr, [facility] [address] [id number] [place] [address] Feb, [facility] [address] [id number] [place] [address] Sep, [facility] [address] [id number] [place] [address] Jul, [facility] [address] [id number] [place] [address] Jul, [facility] [place] [facility] [address] [id number] [place] [address] Jul, [facility] [place] [facility] [address] [id number] [place] [address] Jul, [facility] [place] [facility] [address] [id number] [place] [address] Jun, [facility] [place] [facility] [address] [id number] [place] [address] Feb, [facility] [place] [facility] [address] [id number] [place] [address] 14 Jan, 2010 [facility] [place] [facility] [address] [id number] [place] [address] Feb, [facility] [address] [facility] [id number] [place] [address] Jul, IMMUNIZATIONS No Known Immunizations SOCIAL HISTORY [...]
--- OUTSIDE RECORDS SUMMARY | 2018-07-07 14:42 | XMS REPORT ---
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 Name Role Phone KORY CHAND Unavailable PROBLEMS Type Condition ICD9-CM Code UGE43-SB Code Onset Dates Condition Status SNOMED Code Problem Anxiety, generalized F41.1 Active 06415744 Problem Post-traumatic stress disorder F43.10 Active 65191429 Problem Cannabis dependence F12.20 Active 24805425 Problem Seizures R56.9 Active 25208387 Problem Other chronic pain G89.29 Active 95760637 Problem Adjustment disorder with mixed anxiety and depressed mood F43.23 Active 52767211 Problem Chronic post-traumatic stress disorder (PTSD) F43.12 Active 156046248 Problem Adjustment disorder with depressed mood F43.21 Active 26881505 Problem Adjustment disorder with anxious mood F43.22 Active 13954638 Problem Bipolar disorder, unspecified F31.9 Active 50775838 Problem Gastroesophageal reflux disease without esophagitis K21.9 Active 561426386 Problem Cigarette nicotine dependence with other nicotine-induced disorder F17.218 Active 29934075 Problem Panic disorder with agoraphobia F40.01 Active 88422186 Problem Moderate persistent asthma without complication J45.40 Active 473457838 Problem Cannabis use disorder, moderate, dependence F12.20 Active 03761794 Problem Obstructive sleep apnea syndrome G47.33 Active 52049354 ALLERGIES No Information ENCOUNTERS Encounter Location Date Diagnosis [facility] [address] [facility] [id number] [address] Aug, [facility] [address] [address] May, [facility] [address] [id number] [address] 30 May, 2018 [facility] [address] [id number] [address] 5980 May, [facility] [id number] [place] [address] 99058- 7044 May, [facility] [id number] [place] [address] 97013- 6769 May, [facility] [id number] [place] [address] 66324- 9999 May, [facility] [id number] [place] [address] 60106- 0598 May, [facility] [id number] [place] [address] 34380- 7134 May, Seizures R56.9 [facility] [id number] [place] [address] 68533- 7511 May, [facility] [id number] [place] [address] 52653- 3483 Apr, [facility] [id number] [place] [address] 75888- 1427 Apr, [facility] [id number] [place] [address] 66488- 4828 Apr, [facility] [id number] [place] [address] 34416- 9107 Apr, [facility] [id number] [place] [address] 03605- 9118 Apr, Bipolar disorder, unspecified F31.9 ; Panic disorder with agoraphobia F40.01 and Cannabis use disorder, moderate, dependence F12.20 [facility] [id number] [place] [address] 07827- 1457 Mar, [facility] [id number] [place] [address] 18019- 8828 Mar, [facility] [id number] [place] [address] 38456- 8258 Jan, Low back pain M54.5 ; Moderate persistent asthma without complication J45.40 and Other chronic pain G89.29 [place] [id number] [place] [address] 17347- 7097 Jan, Moderate persistent asthma without complication J45.40 ; Low back pain M54.5 ; Other chronic pain G89.29 ; Gastroesophageal reflux disease without esophagitis K21.9 and Cigarette nicotine dependence with other nicotine-induced disorder F17.218 [place] [address] 27723- 2749 December, Bipolar disorder, unspecified F31.9 ; Panic disorder with agoraphobia F40.01 ; Cannabis use disorder, moderate, dependence F12.20 and Chronic post-traumatic stress disorder (PTSD) F43.12 [place] [id number] [place] [address] 37349- 4079 December, [place] [address] 36494- 4851 December, [place] [id number] [place] [address] 88294- 6239 Nov, [place] [address] 41428- 6071 Oct, Bipolar disorder, unspecified F31.9 ; Chronic post- traumatic stress disorder (PTSD) F43.12 ; Panic disorder with agoraphobia F40.01 and Cannabis use disorder, moderate, dependence F12.20 [place] [id number] [place] [address] 35080- 1599 Sep, [place] [id number] [place] [address] 43044- 2439 Sep, [place] [id number] [place] [address] 43062- 0041 Aug, [place] [id number] [place] [address] 72053- 3461 Aug, Cannabis use disorder, moderate, dependence F12.20 ; Panic disorder with agoraphobia F40.01 and Bipolar affective disorder, currently depressed, moderate F31.32 [facility] [id number] [place] [address] 74351- 9418 May, Diarrhea of presumed infectious origin A09 and Nausea and vomiting, intractability of vomiting not specified, unspecified vomiting type R11.2 [facility] [address] 69822- 0178 Apr, [facility] [address] 72867- 4705 Mar, Nausea R11.0 and Gastroenteritis K52.9 [place] [address] 48702- 4094 Mar, Gastroesophageal reflux disease without esophagitis K21.9 [place] [address] 70982- 1929 Mar, Gastroesophageal reflux disease without esophagitis K21.9 [place] [address] 87751- 2211 Mar, [place] [address] 15373- 3722 Mar, [place] [id number] [place] [address] 71094- 3455 Mar, [place] [id number] [place] [address] 74587- 3946 Feb, Acute pain of right shoulder M25.511 and Muscle spasm M62.838 [facility] [id number] [place] [address] 78168- 8320 Feb, Acute labyrinthitis, unspecified laterality H83.09 [facility] [id number] [place] [address] 91095- 0796 December, [facility] [id number] [place] [address] 57914- 0443 December, [place] [address] [address]- 0025 December, Cannabis use disorder, moderate, dependence F12.20 ; Anxiety , generalized F41.1 ; Adjustment disorder with mixed anxiety and depressed mood F43.23 and Chronic post-traumatic stress disorder (PTSD) F43.12 [place] [address], [place] [address]- 1092 December, [place] [id number] [place] [address] 60712- 3066 December, [place] [id number] [place] [address] 11839- 7568 Nov, Acute nasopharyngitis J00 [place] [id number] [place] [address] 35332- 3164 Nov, Cannabis use disorder, moderate, dependence F12.20 ; Anxiety , generalized F41.1 ; Adjustment disorder with mixed anxiety and depressed mood F43.23 and Chronic post-traumatic stress disorder (PTSD) F43.12 [place] [address] [place] [address] 20627- 9576 Nov, Cannabis use disorder, moderate, dependence F12.20 ; Anxiety , generalized F41.1 ; Adjustment disorder with mixed anxiety and depressed mood F43.23 and Chronic post-traumatic stress disorder (PTSD) F43.12 [place] [id number] [place] [address] 68476- 7990 Oct, Diarrhea, unspecified R19.7 ; Vomiting, unspecified R11.10 and Viral gastroenteritis A08.4 [place] [address] [address]- 9186 Oct, Bipolar disorder, unspecified F31.9 ; Panic disorder with agoraphobia F40.01 ; Cannabis use disorder, moderate, dependence F12.20 ; Cigarette nicotine dependence with other nicotine-induced disorder F17.218 ; Anxiety, generalized F41.1 ; Post-traumatic stress disorder F43.10 and Adjustment disorder with mixed anxiety and depressed mood F43.23 [place] [address], [place] [address]- 4046 Oct, Bipolar disorder, unspecified F31.9 ; Chronic post- traumatic stress disorder (PTSD) F43.12 ; Panic disorder with agoraphobia F40.01 and Cannabis use disorder, moderate, dependence F12.20 [place] [address] [place] [address] 22396- 9934 Oct, Bipolar disorder, unspecified F31.9 ; Panic disorder with agoraphobia F40.01 ; Cannabis use disorder, moderate, dependence F12.20 ; Cigarette nicotine dependence with other nicotine-induced disorder F17.218 ; Anxiety, generalized F41.1 ; Post-traumatic stress disorder F43.10 and Adjustment disorder with mixed anxiety and depressed mood F43.23 [place] [id number] [place] [address] 08412- 3125 14 Oct, 2016 Viral gastroenteritis A08.4 [place] [id number] [place] [address] 32241- 9427 Oct, Anxiety, generalized F41.1 ; Post-traumatic stress disorder F43.10 ; Adjustment disorder with depressed mood F43.21 and Adjustment disorder with anxious mood F43.22 [place] [id number] [place] [address] 73053- 3661 07 Oct, 2016 Panic disorder with agoraphobia F40.01 ; Cannabis use disorder, moderate, dependence F12.20 ; Bipolar disorder, unspecified F31.9 ; Cigarette nicotine dependence with other nicotine-induced disorder F17.218 ; Adjustment disorder with anxious mood F43.22 ; Anxiety, generalized F41.1 ; Post -traumatic stress disorder F43.10 and Cannabis dependence F12.20 [place] [id number] [place] [address] 63796- 2125 Oct, Bipolar disorder, unspecified F31.9 and Chronic post- traumatic stress disorder (PTSD) F43.12 [place] [address] [place] [address] 96630- 3013 Oct, Bipolar disorder, unspecified F31.9 and Chronic post- traumatic stress disorder (PTSD) F43.12 [place] [address] [place] [address] 9216 28 Sep, 2016 Bipolar disorder, unspecified F31.9 ; Panic disorder with agoraphobia F40.01 ; PTSD (post-traumatic stress disorder) F43.10 ; Cannabis use disorder, moderate, dependence F12.20 ; Cannabis dependence F12.20 and Anxiety, generalized F41.1 [place] [id number] [place] [address]- 6833 Sep, Cannabis use disorder, moderate, dependence F12.20 ; Anxiety , generalized F41.1 and Adjustment disorder with mixed anxiety and depressed mood F43.23 [place] [id number] [place] [address]- 626 15 Sep, 2016 Bipolar disorder, unspecified F31.9 ; Panic disorder with agoraphobia F40.01 ; PTSD (post-traumatic stress disorder) F43.10 ; Cannabis use disorder, moderate, dependence F12.20 ; Cannabis dependence F12.20 and Anxiety, generalized F41.1 [place] [id number] [place] [address] 68462- 5512 Sep, Bipolar disorder, unspecified F31.9 ; Panic disorder with agoraphobia F40.01 ; PTSD (post-traumatic stress disorder) F43.10 ; Cannabis use disorder, moderate, dependence F12.20 ; Cannabis dependence F12.20 and Anxiety, generalized F41.1 [place] [id number] [place] [address] 90575- 6657 Sep, Bipolar disorder, unspecified F31.9 ; Post-traumatic stress disorder F43.10 and Cannabis dependence F12.20 [place] [address]3972[address] [address], [place] [address]- 0209 Sep, Suicidal behavior without attempted self-injury R46.89 [place] [address]3217- 8830 Sep, [place] [id number] [place] [address] 06755- 9758 Sep, Cannabis use disorder, moderate, dependence F12.20 ; Panic disorder with agoraphobia F40.01 ; Bipolar disorder, unspecified F31.9 and Anxiety, generalized F41.1 [place] [address] 30007- 1538 Sep, Bipolar disorder, unspecified F31.9 ; PTSD (post-traumatic stress disorder) F43.10 ; Panic disorder with agoraphobia F40.01 and Cannabis use disorder, moderate, dependence F12.20 [place] [address] 82168- 5798 Sep, [place] [address] 97981- 9514 Sep, PTSD (post-traumatic stress disorder) F43.10 ; Cannabis use disorder, moderate, dependence F12.20 and Suicidal risk R45.89 [place] [address] 22163- 6355 Sep, [place] [address] 66560- 0539 Jul, Bipolar disorder, unspecified F31.9 ; PTSD (post-traumatic stress disorder) F43.10 and Panic disorder with agoraphobia F40.01 [place] [address] 75891- 2394 Jul, Obstructive sleep apnea syndrome G47.33 ; Moderate persistent asthma without complication J45.40 and Cigarette nicotine dependence with other nicotine-induced disorder F17.218 [place] [address] 39707- 4582 Jul, [place] [address] 68295- 4598 Jul, [place] [address] 94397- 1888 May, [place] [address], [place] [address]- 8892 May, [place] [address] [place] [address] 858380- 1045 May, [place] [address], [place] [address]- 2475 Apr, [place] [id number] [place] [address] 56064- 5310 Apr, Bipolar disorder, unspecified F31.9 ; PTSD (post-traumatic stress disorder) F43.10 ; Panic disorder with agoraphobia F40.01 and Cannabis use disorder, moderate, dependence F12.20 [place] [address] [place] [address] 51815- 0051 Mar, Uncomplicated asthma, unspecified asthma severity J45.909 [place] [id number] [place] [address] 66173- 1711 Mar, [place] [id number] [place] [address] 56655- 2993 Mar, Moderate persistent asthma without complication J45.40 ; Gastroesophageal reflux disease without esophagitis K21.9 and Cigarette nicotine dependence with other nicotine-induced disorder F17.218 [place] [address], [place] [address]- 9300 Feb, [place] [address] [place] [address] 07166- 5745 Jan, Bipolar disorder, unspecified F31.9 ; PTSD (post-traumatic stress disorder) F43.10 ; Panic disorder with agoraphobia F40.01 and Cannabis use disorder, moderate, dependence F12.20 [place] [address] [address]- 1445 December, [place] [id number] [place] [address] 75492- 3751 Nov, [place] [address] [address]- 8341 Nov, Bipolar disorder, unspecified F31.9 ; PTSD (post-traumatic stress disorder) F43.10 ; Panic disorder with agoraphobia F40.01 and Cannabis use disorder, moderate, dependence F12.20 [facility] [id number] [place] [address] 04865- 9305 Oct, [place] [id number] [place] [address] 27540- 8337 Oct, [place] [id number] [place] [address] 36780- 5867 Sep, [place] [id number] [place] [address] 84416- 1170 Sep, Bipolar disorder, unspecified F31.9 ; PTSD (post-traumatic stress disorder) F43.10 ; Panic disorder with agoraphobia F40.01 and Cannabis use disorder, moderate, dependence F12.20 [place] [address] [place] [address] 68515- 1106 Aug, [place] [id number] [place] [address] 87440- 0072 Aug, [place] [id number] [place] [address] 87598- 4771 Aug, Bipolar disorder, unspecified F31.9 ; PTSD (post-traumatic stress disorder) F43.10 ; Panic disorder with agoraphobia F40.01 and Cannabis use disorder, moderate, dependence F12.20 [place] [address] [place] [address] 53193- 5067 Jul, [place] [id number] [place] [address] 72674- 4669 Apr, GERD (gastroesophageal reflux disease) 530.81 and Internal hemorrhoids 455.0 [place] [id number] [place] [address] 26284- 2144 Feb, Rectal bleeding 569.3 and Hemorrhoids 455.6 [facility] [address] [place] [address] 13204- 9572 Jan, Sinusitis 473.9 and Otitis media 382.9 [facility] [address] [id number] [address]- 7616 December, [facility] [id number] [place] [address] 79927- 9619 Nov, [facility] [address] [facility] [id number] [place] [address] 32392- 9706 Nov, [facility] [id number] [place] [address] 87943- 8511 Oct, [facility] [id number] [place] [address] 38596- 9927 Oct, [facility] [id number] [place] [address] 86804- 0894 Sep, [facility] [address] [place] [address] 25718- 0127 Sep, [facility] [address] [place] [address] 80942- 1104 Aug, [facility] [address], [place] [address]- 3280 Aug, [facility] [address], [place] [address]- 8206 Jul, [facility] [address] 2172 Jul, [facility] [id number] [place] [address] 06244- 3077 Jul, [facility] [address] 0167 Jul, [facility] [address] [place] [address] 67269- 7862 Jul, [facility] [place] [facility] [address] [id number] [place] [address]- 7069 Jul, [facility] [place] [facility] [address] [id number] [place] 3005 Jul, [facility] [place] [facility] [address] [facility] [id number] [place] 2298 Jul, [facility] [place] [facility] [address] [id number] [place] [address]- 7426 Jun, [facility] [place] [facility] [address] [id number] [place] [address]- 0831 Jun, [facility] [place] [facility] [address] [id number] [place] [address]- 4130 Jun, [facility] [place] [facility] [address] [id number] [place] [address]- 8514 Jun, [facility] [place] [facility] [address] [id number], [place] [address]- 0718 May, [facility] [place] [facility] [address] [id number], [place] [address]- 8276 May, [facility] [place] [facility] [address] [id number], [place] [address]- 9237 May, [facility] [place] [facility] [address] [id number] [address]- 2214 May, [facility] [place] [facility] [address] [id number], [place] [address]- 3121 Apr, [facility] [place] [facility] [address] [id number], [place] [address]- 8091 Apr, [facility] [place] [facility] [address] [id number], [place] [address]- 9322 Apr, [facility] [place] [facility] [address] [id number], [place] [address]- 0490 Apr, [facility] [place] [facility] [address] [id number] [place] [address]- 7334 Mar, [facility] [address] [id number] [place] [address]- 4132 Mar, [facility] [place] [facility] [address] [id number] [place] [address]- 7457 Mar, [facility] [place] [facility] [address] [id number] [place] [address]- 2987 Mar, [facility] [place] [facility] [address] [id number] [place] [address]- 1395 December, [facility] [place] [facility] [address] [id number] [place] [address]- 2073 December, [facility] [place] [facility] [address] [id number] [place] [address]- 6149 Nov, [facility] [place] [facility] [address] [id number] [place] [address]- 3289 Nov, [facility] [place] [facility] [address] [id number] [place] [address]- 4752 Sep, [facility] [place] [facility] [address] [id number] [place] [address]- 5965 Sep, [facility] [place] [facility] [address] [id number] [place] [address]- 6096 Sep, [facility] [place] [facility] [address] [id number] [place] [address]- 6322 Sep, [facility] [place] [facility] [address] [id number] [place] [address]- 9388 Aug, [facility] [place] [facility] [address] [id number] [place] [address]- 7967 Jul, [facility] [place] [facility] [address] [id number] [place] [address]- 9116 Jul, [facility] [place] [facility] [address] [id number] [place] [address]- 1162 Jun, [facility] [place] [facility] [address] [id number] [place] [address]- 1269 11 Jun, 2013 [facility] [place] [facility] [address] [id number] [place] [address]- 0332 May, [facility] [place] [facility] [address] [id number] [place] [address]- 5359 18 May, 2013 [facility] [place] [facility] [address] [id number] [place] [address]- 1267 07 May, 2013 [facility] [place] [facility] [address] [id number] [place] [address]- 5941 17 Apr, 2013 [facility] [place] [facility] [address] [id number] [place] [address]- 8150 16 Apr, 2013 [facility] [place] [facility] [address] [id number] [place] [address]- 5447 Apr, [facility] [place] [facility] [address] [id number] [place] [address]- 6496 09 Apr, 2013 [facility] [place] [facility] [address] [id number] [place] [address]- 6496 Mar, [facility] [place] [facility] [address] [id number] [place] [address]- 2447 Mar, [facility] [place] [facility] [address] [id number] [address] December, [facility] [place] [facility] [address] [id number] [address] Oct, [facility] [place] [facility] [address] [id number] [place] [address] Oct, [facility] [place] [facility] [address] [id number], [place] [address] Aug, [facility] [place] [facility] [address] [id number] [place] [address] Jul, [facility] [place] [facility] [address] [id number] [place] [address] 17 Jul, 2012 [facility] [address] [id number] [place] [address] 13 Jul, 2012 [facility] [place] [facility] [address] [id number] [place] [address] 13 Jul, 2012 [facility] [address] [id number] [place] [address] 14 Jun, 2012 [facility] [place] [facility] [address] [id number] [place] [address] 14 Jun, 2012 [facility] [place] [facility] [address] [id number] [place] [address] 14 Mar, 2012 [facility] [place] [facility] [address] [id number] [place] [address] 16 Feb, 2012 [facility] [address] [id number] [place] [address] 16 Feb, 2012 [facility] [place] [facility] [address] [id number] [place] [address] 15 Dec, 2011 [facility] [place] [facility] [address] [id number] [place] [address] 17 Nov, 2011 [facility] [place] [facility] [address] [id number] [place] [address] 23 Oct, 2011 [facility] [place] [facility] [address] [id number] [place] [address] Oct, [facility] [place] [facility] [address] [id number] [place] [address] Sep, [facility] [place] [facility] [address] [id number] [place] [address] Sep, [facility] [place] [facility] [address] [id number] [place] [address] 19 Aug, 2011 [facility] [place] [facility] [address] [id number] [place] [id number] 13 Aug, 2011 [facility] [place] [facility] [address] [id number] [place] [address] Jul, [facility] [place] [facility] [address] [id number] [place] [address] Jul, [facility] [place] [facility] [address] [id number] [place] [address] Jul, [facility] [place] [facility] [address] [id number] [place] [address] Jun, [facility] [address] [id number] [place] [address] 17 May, 2011 [facility] [place] [facility] [address] [id number] [place] [address] Apr, [facility] [address] [id number] [place] [address] Feb, [facility] [address] [id number] [place] [address] Sep, [facility] [address] [id number] [place] [address] Jul, [facility] [address] [id number] [place] [address] Jul, [facility] [place] [facility] [address] [id number] [place] [address] Jul, [facility] [place] [facility] [address] [id number] [place] [address] Jul, [facility] [place] [facility] [address] [id number] [place] [address] Jun, [facility] [place] [facility] [address] [id number] [place] [address] Feb, [facility] [place] [facility] [address] [id number] [place] [address] 14 Jan, 2010 [facility] [place] [facility] [address] [id number] [place] [address] Feb, [facility] [address] [facility] [id number] [place] [address] Jul, IMMUNIZATIONS No Known Immunizations SOCIAL HISTORY Never Assessed REASON FOR VISIT Requests Return Call PLAN OF CARE VITAL SIGNS MEDICATIONS Medication Instructions Dosage Frequency Start Date End Date Duration Status Loxapine Succinate 10 mg Orally at bedtime 3 capsules May, 30 day(s) Active RESULTS No [...]
--- OUTSIDE RECORDS SUMMARY | 2018-07-07 14:43 | XMS REPORT ---
Author Author PETRA GARZON [facility] Address [address] [place] [address] Care Team Providers Care Managed Care Coordinator Name Role Phone PETRA GARZON Unavailable PROBLEMS Type Condition ICD9-CM Code [id number] Code Onset Dates Condition Status SNOMED Code Problem Anxiety, generalized F41.1 Active 03089450 Problem Post-traumatic stress disorder F43.10 Active 48931001 Problem Cannabis dependence F12.20 Active 86607321 Problem Seizures R56.9 Active 83105285 Problem Other chronic pain G89.29 Active 37466713 Problem Adjustment disorder with mixed anxiety and depressed mood F43.23 Active 13234118 Problem Chronic post-traumatic stress disorder (PTSD) F43.12 Active 238030714 Problem Adjustment disorder with depressed mood F43.21 Active 40301794 Problem Adjustment disorder with anxious mood F43.22 Active 41873840 Problem Bipolar disorder, unspecified F31.9 Active 30415508 Problem Gastroesophageal reflux disease without esophagitis K21.9 Active 806108060 Problem Cigarette nicotine dependence with other nicotine-induced disorder F17.218 Active 42372801 Problem Panic disorder with agoraphobia F40.01 Active 67340692 Problem Moderate persistent asthma without complication J45.40 Active 998303960 Problem Cannabis use disorder, moderate, dependence F12.20 Active 63393341 Problem Obstructive sleep apnea syndrome G47.33 Active 36328349 ALLERGIES No Information ENCOUNTERS Encounter Location Date Diagnosis [facility] [place] [address] [facility] [id number] [address] Aug, [facility] [place] [address], [place] [address] May, [facility] [place] [id number] [address] 2858 May, [facility] [place] [address] [id number] [address] 0203 May, [facility] [place] [id number] [place] [address] 39398- 1841 May, [facility] [place] [id number] [place] [address] 69382- 9660 May, [facility] [place] [id number] [place] [address] 22761- 1682 May, [facility] [place] [id number] [place] [address] 16460- 5729 May, Seizures R56.9 [facility] [place] [id number] [place] [address] 86385- 0428 May, [facility] [place] [id number] [place] [address] 90472- 0291 Apr, [facility] [place] [id number] [place] [address] 61334- 5924 Apr, [facility] [place] [id number] [place] [address] 39415- 5422 Apr, [facility] [place] [id number] [place] [address] 61057- 6965 Apr, [facility] [place] [id number] [place] [address] 52953- 9826 Apr, Bipolar disorder, unspecified F31.9 ; Panic disorder with agoraphobia F40.01 and Cannabis use disorder, moderate, dependence F12.20 [facility] [place] [address] [id number] [address] 2033 Mar, [facility] [place] [id number] [place] [address] 82816- 9276 Mar, [facility] [place] [id number] [place] [address] 46858- 4619 Jan, Low back pain M54.5 ; Moderate persistent asthma without complication J45.40 and Other chronic pain G89.29 [facility] [place] [id number] [place] [address] 31667- 1207 Jan, Moderate persistent asthma without complication J45.40 ; Low back pain M54.5 ; Other chronic pain G89.29 ; Gastroesophageal reflux disease without esophagitis K21.9 and Cigarette nicotine dependence with other nicotine-induced disorder F17.218 [place] [place] [id number] [place] [address] 37059- 7809 December, Bipolar disorder, unspecified F31.9 ; Panic disorder with agoraphobia F40.01 ; Cannabis use disorder, moderate, dependence F12.20 and Chronic post-traumatic stress disorder (PTSD) F43.12 [place] [address] 748349- 3134 December, [place] [id number] [place] [address] 46588- 9837 December, [place] [id number] [place] [address] 99094- 8714 Nov, [place] [id number] [place] [address] 58088- 8620 Oct, Bipolar disorder, unspecified F31.9 ; Chronic post- traumatic stress disorder (PTSD) F43.12 ; Panic disorder with agoraphobia F40.01 and Cannabis use disorder, moderate, dependence F12.20 [place] [id number] [place] [address] 33921- 6503 Sep, [place] [id number] [place] [address] 39997- 1128 Sep, [place] [id number] [place] [address] 80831- 7383 Aug, [place] [id number] [place] [address] 46002- 189 Aug, Cannabis use disorder, moderate, dependence F12.20 ; Panic disorder with agoraphobia F40.01 and Bipolar affective disorder, currently depressed, moderate F31.32 [place] [address] 67514- 0737 May, Diarrhea of presumed infectious origin A09 and Nausea and vomiting, intractability of vomiting not specified, unspecified vomiting type R11.2 [place] [address] 56170- 3645 Apr, [place] [address] 65269- 5519 Mar, Nausea R11.0 and Gastroenteritis K52.9 [place] [address] 05365- 5691 Mar, Gastroesophageal reflux disease without esophagitis K21.9 [place] [address] 064059- 3706 Mar, Gastroesophageal reflux disease without esophagitis K21.9 [place] [address] 42513- 1208 Mar, [place] [address] 69253- 3623 Mar, [place] [address] 30267- 7949 Mar, [place] [address] 87992- 4205 Feb, Acute pain of right shoulder M25.511 and Muscle spasm M62.838 [place] [address] 56966- 2326 Feb, Acute labyrinthitis, unspecified laterality H83.09 [place] [address] 36492- 4330 December, [place] [address] 95980- 2992 December, [place] [address] 43013- 2331 December, Cannabis use disorder, moderate, dependence F12.20 ; Anxiety , generalized F41.1 ; Adjustment disorder with mixed anxiety and depressed mood F43.23 and Chronic post-traumatic stress disorder (PTSD) F43.12 [place] [id number] [place] [address] [address]68 December, [place] [id number] [place] [address] 03848- 5453 December, [place] [address] 64252- 1225 Nov, Acute nasopharyngitis J00 [place] [id number] [place] [address] 20560- 4582 Nov, Cannabis use disorder, moderate, dependence F12.20 ; Anxiety , generalized F41.1 ; Adjustment disorder with mixed anxiety and depressed mood F43.23 and Chronic post-traumatic stress disorder (PTSD) F43.12 [place] [id number] [place] [address] 01766- 1916 Nov, Cannabis use disorder, moderate, dependence F12.20 ; Anxiety , generalized F41.1 ; Adjustment disorder with mixed anxiety and depressed mood F43.23 and Chronic post-traumatic stress disorder (PTSD) F43.12 [place] [id number] [place] [address] 55104- 4220 Oct, Diarrhea, unspecified R19.7 ; Vomiting, unspecified R11.10 and Viral gastroenteritis A08.4 [place] [id number] [place] [address] 35790- 3011 Oct, Bipolar disorder, unspecified F31.9 ; Panic disorder with agoraphobia F40.01 ; Cannabis use disorder, moderate, dependence F12.20 ; Cigarette nicotine dependence with other nicotine-induced disorder F17.218 ; Anxiety, generalized F41.1 ; Post-traumatic stress disorder F43.10 and Adjustment disorder with mixed anxiety and depressed mood F43.23 [place] [id number] [place] [address] 00521- 1705 Oct, Bipolar disorder, unspecified F31.9 ; Chronic post- traumatic stress disorder (PTSD) F43.12 ; Panic disorder with agoraphobia F40.01 and Cannabis use disorder, moderate, dependence F12.20 [place] [id number] [place] [address] 19354- 8635 Oct, Bipolar disorder, unspecified F31.9 ; Panic disorder with agoraphobia F40.01 ; Cannabis use disorder, moderate, dependence F12.20 ; Cigarette nicotine dependence with other nicotine-induced disorder F17.218 ; Anxiety, generalized F41.1 ; Post-traumatic stress disorder F43.10 and Adjustment disorder with mixed anxiety and depressed mood F43.23 [place] [id number] [place] [address] 07057- 1411 14 Oct, 2016 Viral gastroenteritis A08.4 [id number] [place] [address] 80796- 6046 09 Oct, 2016 Anxiety, generalized F41.1 ; Post-traumatic stress disorder F43.10 ; Adjustment disorder with depressed mood F43.21 and Adjustment disorder with anxious mood F43.22 [place] [id number] [place] [address] 17025- 9604 07 Oct, 2016 Panic disorder with agoraphobia F40.01 ; Cannabis use disorder, moderate, dependence F12.20 ; Bipolar disorder, unspecified F31.9 ; Cigarette nicotine dependence with other nicotine-induced disorder F17.218 ; Adjustment disorder with anxious mood F43.22 ; Anxiety, generalized F41.1 ; Post -traumatic stress disorder F43.10 and Cannabis dependence F12.20 [place] [id number] [place] [address] 14441- 8699 Oct, Bipolar disorder, unspecified F31.9 and Chronic post- traumatic stress disorder (PTSD) F43.12 [id number] [place] [address] 97264- 5320 Oct, Bipolar disorder, unspecified F31.9 and Chronic post- traumatic stress disorder (PTSD) F43.12 [place] [id number] [place] [address] 54990- 5225 28 Sep, 2016 Bipolar disorder, unspecified F31.9 ; Panic disorder with agoraphobia F40.01 ; PTSD (post-traumatic stress disorder) F43.10 ; Cannabis use disorder, moderate, dependence F12.20 ; Cannabis dependence F12.20 and Anxiety, generalized F41.1 [place] [id number] [place] [address] 14317- 7162 Sep, Cannabis use disorder, moderate, dependence F12.20 ; Anxiety , generalized F41.1 and Adjustment disorder with mixed anxiety and depressed mood F43.23 [place] [id number] [place] [address] 84129- 9975 15 Sep, 2016 Bipolar disorder, unspecified F31.9 ; Panic disorder with agoraphobia F40.01 ; PTSD (post-traumatic stress disorder) F43.10 ; Cannabis use disorder, moderate, dependence F12.20 ; Cannabis dependence F12.20 and Anxiety, generalized F41.1 [place] [id number] [place] [address] 12285- 1759 Sep, Bipolar disorder, unspecified F31.9 ; Panic disorder with agoraphobia F40.01 ; PTSD (post-traumatic stress disorder) F43.10 ; Cannabis use disorder, moderate, dependence F12.20 ; Cannabis dependence F12.20 and Anxiety, generalized F41.1 [place] [id number] [place] [address] 63307- 6424 Sep, Bipolar disorder, unspecified F31.9 ; Post-traumatic stress disorder F43.10 and Cannabis dependence F12.20 [address] [place] [address] Sep, [place] [id number] [place] [address] 93315- 8308 08 Sep, 2016 Suicidal behavior without attempted self-injury R46.89 [place] [id number] [place] [address] 29955- 1444 Sep, [place] [id number] [place] [address] 33157- 0086 Sep, Cannabis use disorder, moderate, dependence F12.20 ; Panic disorder with agoraphobia F40.01 ; Bipolar disorder, unspecified F31.9 and Anxiety, generalized F41.1 [place] [id number] [place] [address] 45792- 4168 Sep, Bipolar disorder, unspecified F31.9 ; PTSD (post-traumatic stress disorder) F43.10 ; Panic disorder with agoraphobia F40.01 and Cannabis use disorder, moderate, dependence F12.20 [id number] [place] [address] 87926- 2657 Sep, [address] 76258- 1845 Sep, PTSD (post-traumatic stress disorder) F43.10 ; Cannabis use disorder, moderate, dependence F12.20 and Suicidal risk R45.[address] 21076- 1383 Sep, [place] [id number] [place] [address] 15566- 4166 Jul, Bipolar disorder, unspecified F31.9 ; PTSD (post-traumatic stress disorder) F43.10 and Panic disorder with agoraphobia F40.01 [id number] [place] [address] 44015- 5894 Jul, Obstructive sleep apnea syndrome G47.33 ; Moderate persistent asthma without complication J45.40 and Cigarette nicotine dependence with other nicotine-induced disorder F17.218 [place] [id number] [place] [address] 67489- 9207 Jul, [address] 28603- 0986 Jul, [place] [id number] [place] [address] 61936- 1195 May, [place] [address]- 2546 May, [place] [place] [id number] [place] [address] 69949- 2631 May, [place] [id number] [place] [address] 04106- 0733 Apr, [place] [id number] [place] [address] 29105- 3765 Apr, Bipolar disorder, unspecified F31.9 ; PTSD (post-traumatic stress disorder) F43.10 ; Panic disorder with agoraphobia F40.01 and Cannabis use disorder, moderate, dependence F12.20 [place] [id number] [place] [address] 50584- 5922 Mar, Uncomplicated asthma, unspecified asthma severity J45.909 [id number] [place] [address] 67139- 3742 Mar, [place] [id number] [place] [address] 24252- 2085 Mar, Moderate persistent asthma without complication J45.40 ; Gastroesophageal reflux disease without esophagitis K21.9 and Cigarette nicotine dependence with other nicotine-induced disorder F17.218 [place] [id number] [place] [address] 36975- 0622 Feb, [place] [id number] [place] [address] 77574- 2661 Jan, Bipolar disorder, unspecified F31.9 ; PTSD (post-traumatic stress disorder) F43.10 ; Panic disorder with agoraphobia F40.01 and Cannabis use disorder, moderate, dependence F12.20 [place] [id number] [place] [address] 73246- 1170 December, [place] [id number] [place] [address] 46440- 2995 Nov, [place] [id number] [place] [address] 45562- 6485 Nov, Bipolar disorder, unspecified F31.9 ; PTSD (post-traumatic stress disorder) F43.10 ; Panic disorder with agoraphobia F40.01 and Cannabis use disorder, moderate, dependence F12.20 [place] [address] [place] [address]- 9537 Oct, [place] [id number] [place] [address] 55840- 4491 Oct, [place] [id number] [place] [address] 88344- 6955 Sep, [place] [id number] [place] [address] 27434- 2325 Sep, Bipolar disorder, unspecified F31.9 ; PTSD (post-traumatic stress disorder) F43.10 ; Panic disorder with agoraphobia F40.01 and Cannabis use disorder, moderate, dependence F12.20 [place] [id number] [place] [address] 54768- 4738 Aug, [place] [id number] [place] [address] 02630- 9440 Aug, [place] [id number] [place] [address] 74718- 1607 Aug, Bipolar disorder, unspecified F31.9 ; PTSD (post-traumatic stress disorder) F43.10 ; Panic disorder with agoraphobia F40.01 and Cannabis use disorder, moderate, dependence F12.20 [place] [id number] [place] [address] 02753- 9854 Jul, [place] [id number] [place] [address] 44415- 7249 Apr, GERD (gastroesophageal reflux disease) 530.81 and Internal hemorrhoids 455.0 [place] [id number] [place] [address] 57381- 1120 Feb, Rectal bleeding 569.3 and Hemorrhoids 455.6 [place] [address] [place] [address]- 7990 Jan, Sinusitis 473.9 and Otitis media 382.9 [facility] [id number] [place] [address]- 0259 December, [facility] [place] [facility] [address] [facility] [id number] [place] [address]- 3427 Nov, [facility] [place] [facility] [address] [facility] [id number] [place] [address], [place] [address]- 7150 Nov, [facility] [place] [facility] [address] [facility] [id number] [place] [address], [place] [address]- 8128 Oct, [facility] [place] [facility] [id number] [place] [address], [place] [address]- 6286 Oct, [facility] [id number] [place] [address], [place] [address]- 1015 Sep, [facility] [id number] [place] [address], [place] [address]- 4598 Sep, [facility] [address] [place] [address]- 3766 Aug, [facility] [address] [place] [address]- 3445 Aug, [facility] [place] [facility] [address] [place] [address]- 6229 Jul, [facility] [place] [facility] [id number], [place] [address]- 7998 Jul, [facility] [place] [facility] [id number] [place] [address]- 1893 Jul, [facility] [place] [facility] [address] [place] [address]- 1721 Jul, [facility] [place] [facility] [id number], [place] [address]- 3340 Jul, [facility] [place] [facility] [address], [place] [address]- 0263 Jul, [facility] [place] [facility] [address] [id number] [place] 7671 Jul, [facility] [place] [facility] [address] [id number] [place] [address]- 5732 Jul, [facility] [place] [facility] [address] [facility] [id number] [place] 8626 Jun, [facility] [place] [facility] [address] [id number] [place] [address]- 9402 Jun, [facility] [place] [facility] [address] [id number] [place] [address]- 7275 Jun, [facility] [place] [facility] [address] [id number] [place] [address]- 4767 Jun, [facility] [place] [facility] [address] [id number] [place] [address]- 1651 May, [facility] [place] [facility] [address] [id number], [place] [address]- 5013 May, [facility] [place] [facility] [address] [id number], [place] [address]- 6880 May, [facility] [place] [facility] [address] [id number], [place] [address]- 7335 May, [facility] [place] [facility] [address] [id number], [place] [address]- 6026 Apr, [facility] [place] [facility] [address] [id number], [place] [address]- 0606 Apr, [facility] [place] [facility] [address] [id number], [place] [address]- 7353 Apr, [facility] [place] [facility] [address] [id number], [place] [address]- 2478 Apr, [facility] [place] [facility] [address] [id number], [place] [address]- 1785 Mar, [facility] [place] [facility] [address] [id number] [place] [address]- 5129 Mar, [facility] [address] [id number] [place] [address]- 4747 Mar, [facility] [place] [facility] [address] [id number] [place] [address]- 7596 Mar, [facility] [place] [facility] [address] [id number] [place] [address]- 0729 December, [facility] [place] [facility] [address] [id number] [place] [address]- 7121 December, [facility] [place] [facility] [address] [id number] [place] [address]- 9830 Nov, [facility] [place] [facility] [address] [id number] [place] [address]- 4886 Nov, [facility] [place] [facility] [address] [id number] [place] [address]- 6207 Sep, [facility] [place] [facility] [address] [id number] [place] [address]- 9897 Sep, [facility] [place] [facility] [address] [id number] [place] [address]- 5609 Sep, [facility] [place] [facility] [address] [facility] [id number] [place] [address]- 6255 Sep, [facility] [place] [facility] [address] [id number] [place] [address]- 8789 Aug, [facility] [place] [facility] [address] [id number] [place] [address]- 4152 Jul, [facility] [place] [facility] [address] [id number] [place] [address]- 0976 Jul, [facility] [place] [facility] [address] [id number] [place] [address]- 4566 Jun, [facility] [place] [facility] [address] [id number] [place] [address]- 5766 Jun, [facility] [place] [facility] [address] [id number] [place] [address]- 7432 May, [facility] [place] [facility] [address] [id number] [place] [address] 18 May, 2013 [facility] [place] [facility] [address] [id number] [place] [address] May, [facility] [place] [facility] [address] [id number] [place] [address] 17 Apr, 2013 [facility] [place] [facility] [address] [id number] [place] [address] 16 Apr, 2013 [facility] [place] [facility] [address] [id number] [place] [address] Apr, [facility] [place] [facility] [address] [id number] [place] [address] Apr, [facility] [place] [facility] [address] [id number] [place] [address] Mar, [facility] [place] [facility] [address] [id number] [place] [address] Mar, [facility] [place] [facility] [address] [id number] [place] [address] December, [facility] [place] [facility] [address] [id number], [place] [address] Oct, [facility] [place] [facility] [address] [id number], [place] [address] Oct, [facility] [place] [facility] [address] [id number] [place] [address] Aug, [facility] [place] [facility] [address] [id number], [place] [address] Jul, [facility] [place] [facility] [address] [id number] [place] [address] Jul, [facility] [place] [facility] [address] [id number] [place] [address] 13 Jul, 2012 [facility] [address] [id number] [place] [address] 13 Jul, 2012 [facility] [place] [facility] [address] [id number] [place] [address] 14 Jun, 2012 [facility] [address] [id number] [place] [address] 14 Jun, 2012 [facility] [place] [facility] [address] [id number] [place] [address] 14 Mar, 2012 [facility] [address] [id number] [place] [address] 16 Feb, 2012 [facility] [place] [facility] [address] [id number] [place] [address] 16 Feb, 2012 [facility] [address] [id number] [place] [address] 15 Dec, 2011 [facility] [place] [facility] [address] [id number] [place] [address] 17 Nov, 2011 [facility] [place] [facility] [address] [id number] [place] [address] 23 Oct, 2011 [facility] [place] [facility] [address] [id number] [place] [address] Oct, [facility] [place] [facility] [address] [id number] [place] [address] 09 Sep, 2011 [facility] [place] [facility] [address] [id number] [place] [address] 03 Sep, 2011 [facility] [facility] [address] [id number] [place] [address] 19 Aug, 2011 [facility] [place] [facility] [address] [id number] [place] [address] 13 Aug, 2011 [facility] [place] [facility] [address] [id number] [place] [address] Jul, [facility] [place] [facility] [address] [id number] [place] [address] Jul, [facility] [address] [id number] [place] [address] Jul, [facility] [address] [id number] [place] [address] Jun, [facility] [address] [id number] [place] [address] May, [facility] [address] [id number] [place] [address] Apr, [facility] [address] [id number] [place] [address] Feb, [facility] [address] [id number] [place] [address] Sep, [facility] [address] [id number] [place] [address] Jul, [facility] [address] [id number] [place] [address] Jul, [facility] [address] [id number] [place] [address] Jul, [facility] [address] [id number] [place] [address] Jul, [facility] [address] [id number] [place] [address] Jun, [facility] [address] [id number] [place] [address] Feb, [facility] [address] [id number] [place] [address] Jan, [facility] [facility] [address] [id number] [place] [address] Feb, [facility] [address] [id number] [place] [id number] Jul, IMMUNIZATIONS No Known Immunizations SOCIAL HISTORY [...]
--- OUTSIDE RECORDS SUMMARY | 2018-07-07 14:57 | XMS REPORT | Continuity of Care Document ---
Author Author [facility] Address Unknown Phone Unavailable Allergies Active Description Code Type Severity Reaction Onset Reported/Identified Relationship to Patient Clinical Status Yes codeine Drug Allergy N/A N/A 01/08/2009 Yes Penicillins Drug Allergy N/A N/A 01/08/2009 Yes codeine Drug Allergy 01/08/2009 Yes Penicillins Drug Allergy 01/08/2009 Yes codeine [id number] Drug Allergy Mild N/A 11/07/2009 Yes Penicillins [id number] Drug Allergy Mild N/A 11/07/2009 Yes Phenergan with Codeine Drug Allergy 05/08/2011 Yes Flexeril 10 mg Tablet Drug Allergy N/A N/A 09/18/2011 Yes Flexeril 10 mg Tablet Drug Allergy 09/18/2011 Yes egg [id number] Drug Allergy Unknown N/A 09/15/2016 Medications There [...] For: Screening Exam Bact/spirochetal Venereal Disease 03/07/2009 PERTA GARZON MD 079.99 Viral Syndrome 03/07/2009 PETRA [...] NIRANJAN Stover 530.81 GERD 02/25/2010 RYANN FRANK, PTERA 530.81 GERD 02/25/2010 RYANN FRANK, PETRA 530.81 [...] NIRANJAN Stover 009.1 Gastroenteritis Infect 11/28/2010 PETRA GARZNO MD 009.1 Gastroenteritis Infect 11/28/2010 PETRA GARZON [...] INT HEMORRHOID W/O COMPL 09/15/2013 AMI CALLAHAN PLANT PATHOLOGIST Ot 729.6 OLD FB IN SOFT TISSUE 09/15/2013 AMI CALLAHAN PLANT PATHOLOGIST Ot 842.00 SPRAIN OF WRIST NOS 09/15/2013 AMI CALLAHAN PLANT PATHOLOGIST Ot 959.3 ELB/FOREARM/WRST INJ NOS 09/15/2013 AMI CALLAHAN PLANT PATHOLOGIST Ot E000.8 OTHER EXTERNAL CAUSE STATUS 09/15/2013 AMI CALLAHAN PLANT PATHOLOGIST Ot E849.0 ACCIDENT IN HOME 09/15/2013 AMI CALLAHAN PLANT PATHOLOGIST Ot E928.9 ACCIDENT NOS 09/15/2013 AMI CALLAHAN PLANT PATHOLOGIST Ot V90.9 RETAINED FOREIGN BODY, UNSPECIFIED MATER [...] ENCOUNTER FOR DISABILITY DETERMINATION 09/15/2016 AMI CALLAHAN PLANT PATHOLOGIST Ot F32.9 MAJOR DEPRESSIVE DISORDER, SINGLE EPISOD 09/15/2016 AMI CALLAHAN PLANT PATHOLOGIST Ot F41.9 ANXIETY DISORDER, UNSPECIFIED 09/15/2016 AMI CALLAHAN PLANT PATHOLOGIST Ot J18.9 PNEUMONIA, UNSPECIFIED ORGANISM 09/15/2016 AMI CALLAHAN PLANT PATHOLOGIST Ot R45.851 SUICIDAL IDEATIONS 09/16/2016 AMI CALLAHAN PLANT PATHOLOGIST Ot F32.9 MAJOR DEPRESSIVE DISORDER, SINGLE EPISOD 09/16/2016 AMI CALLAHAN PLANT PATHOLOGIST Ot F41.9 ANXIETY DISORDER, UNSPECIFIED 09/16/2016 AMI CALLAHAN PLANT PATHOLOGIST Ot J18.9 PNEUMONIA, UNSPECIFIED ORGANISM 09/16/2016 AMI CALLAHAN PLANT PATHOLOGIST Ot R45.851 SUICIDAL IDEATIONS 10/24/2016 CELI FRANK, NIRANJAN Stover Ot V72.84 EXAM PRE-OPERATIVE NOS 10/24/2016 SCARLETT WARD MD ([facility]) Ot Z02.71 ENCOUNTER FOR DISABILITY DETERMINATION 12/30/2016 AMI CALLAHAN PLANT PATHOLOGIST Ot F32.9 MAJOR DEPRESSIVE DISORDER, SINGLE EPISOD 12/30/2016 AMI CALLAHAN PLANT PATHOLOGIST Ot F41.9 ANXIETY DISORDER, UNSPECIFIED 12/30/2016 CALLAHANAMI WAGNER PLANT PATHOLOGIST Ot J18.9 PNEUMONIA, UNSPECIFIED ORGANISM 12/30/2016 AMI CALLAHAN PLANT PATHOLOGIST Ot R45.851 SUICIDAL IDEATIONS 02/06/2017 AMI CALLAHAN PLANT PATHOLOGIST Ot F32.9 MAJOR DEPRESSIVE DISORDER, SINGLE EPISOD 02/06/2017 CALLAHANAMI WAGNER PLANT PATHOLOGIST Ot F41.9 ANXIETY DISORDER, UNSPECIFIED 02/06/2017 CALLAHANAMI WAGNER PLANT PATHOLOGIST Ot J18.9 PNEUMONIA, UNSPECIFIED ORGANISM 02/06/2017 AMI CALLAHAN PLANT PATHOLOGIST Ot R45.851 SUICIDAL IDEATIONS 12/07/2017 CELI FRANK, [...] PAIN 12/07/2017 BECCA BURK DO Ot Z79.51 JAIL (CURRENT) USE OF 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 12/07/2017 BECCA [...] 12/09/2017 WM ZURITA BECCA Chen Ot 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.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 12/09/2017 [...] SMO 05/13/2018 AMI CALLAHAN APRN Ot Z79.51 JAIL (CURRENT) USE OF 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 05/13/2018 AMI CALLAHAN APRN Ot Z79.52 BREWERY CELLAR WORKER (CURRENT) USE OF SYSTEMIC STER 05/13/2018 [...] SMO 05/17/2018 AMI CALLAHAN APRN Ot Z79.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 05/17/2018 AMI CALLAHAN APRN Ot Z79.52 BREWERY CELLAR WORKER (CURRENT) USE OF SYSTEMIC STER 05/17/2018 [...] EXAM PRE-OPERATIVE NOS 05/26/2018 SCARLETT WARD MD ([facility]) Ot Z02.71 ENCOUNTER FOR DISABILITY DETERMINATION 06/10/2018 GILAROSARIO Hernandez SERVICER TRAVEL TRAILERS Ot F12.10 CANNABIS ABUSE, UNCOMPLICATED 06/10/2018 GILA, ROSARIO SERVICER TRAVEL TRAILERS Ot F17.210 NICOTINE DEPENDENCE, CIGARETTES, UNCOMPL 06/10/2018 GILA, ROSARIO SERVICER TRAVEL TRAILERS Ot F32.9 MAJOR DEPRESSIVE DISORDER, SINGLE EPISOD 06/10/2018 GILA, ROSARIO SERVICER TRAVEL TRAILERS Ot I10 ESSENTIAL (PRIMARY) HYPERTENSION 06/10/2018 GILA, ROSARIO SERVICER TRAVEL TRAILERS Ot J44.9 CHRONIC OBSTRUCTIVE PULMONARY DISEASE, U 06/10/2018 GILA, ROSARIO SERVICER TRAVEL TRAILERS Ot K21.9 GASTRO-ESOPHAGEAL REFLUX DISEASE WITHOUT 06/10/2018 GILA, ROSARIO SERVICER TRAVEL TRAILERS Ot R07.81 PLEURODYNIA 06/10/2018 GILA, ROSARIO SERVICER TRAVEL TRAILERS Ot S22.42XD MULTIPLE FX OF RIBS, LEFT SIDE, SUBS FOR 06/10/2018 GILA, ROSARIO SERVICER TRAVEL TRAILERS Ot X58.XXXA EXPOSURE TO OTHER SPECIFIED FACTORS, INI 06/10/2018 GILA ROSARIO SERVICER TRAVEL TRAILERS Ot Z79.51 JAIL (CURRENT) USE OF 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 06/10/2018 GILA, ROSARIO SERVICER TRAVEL TRAILERS Ot Z79.52 JAIL (CURRENT) USE OF SYSTEMIC STER 06/10/2018 GILA ROSARIO SERVICER TRAVEL TRAILERS Ot Z87.19 PERSONAL HISTORY OF OTHER DISEASES OF TH 06/10/2018 GILA, ROSARIO SERVICER TRAVEL TRAILERS Ot Z88.0 ALLERGY STATUS TO PENICILLIN 06/10/2018 GILA, ROSARIO SERVICER TRAVEL TRAILERS Ot Z88.5 ALLERGY STATUS TO NARCOTIC AGENT STATUS Procedures Code [place] [address] URINE DRUG SCREEN (IN-HOUSE ) 08/19/2012 09186 URINE DRUG SCREEN (IN-HOUSE ) 12/10/2012 21338 ROUTINE VENIPUNCTURE 04/25/2013 97581 URINE DRUG SCREEN (IN-HOUSE ) 04/25/2013 78414 CMP 04/25/2013 7513593 GFR CALC (RESULT ONLY) 04/25/2013 62409 ROUTINE VENIPUNCTURE 05/27/2013 17629 ROUTINE VENIPUNCTURE 05/27/2013 80066 CBC 05/27/2013 27418 CBC 05/27/2013 Niranjan Pérez 05/31/2013 Niranjan Pérez 06/20/2013 72631 [employer] 04/03/2014 72855 [employer] 07/17/2014 61742 ROUTINE VENIPUNCTURE 07/20/2014 4071946 GFR CALC (RESULT ONLY) 07/20/2014 46067 CMP 07/20/2014 Results Test Result Range Complete [...] Status Pt. Type Provider Facility Loc./Unit Complaint [id number] 07/20/2014 10:28:00 07/20/2014 23:59:59 CLS Outpatient PETRA GARZON MD [id number] 04/17/2014 12:30:00 04/17/2014 23:59:59 CLS Outpatient EDILSON DOTSON APRN [id number] 03/27/2014 15:44:00 03/27/2014 23:59:59 CLS Outpatient PETRA GARZON MD [id number] 09/19/2013 16:35:00 09/19/2013 23:59:59 CLS Outpatient PETRA GARZON MD [id number] 08/23/2013 08:26:00 08/23/2013 23:59:59 CLS Outpatient NIRANJAN ALATORRE MD [id number] 06/20/2013 14:24:00 06/20/2013 23:59:59 CLS Outpatient RACHEL GRACIA DO [id number] 05/27/2013 08:53:00 05/27/2013 23:59:59 CLS Outpatient PETRA GARZON MD [id number] 04/25/2013 13:26:00 04/25/2013 23:59:59 CLS Outpatient PETRA GARZON MD [id number] 09/03/2012 10:45:00 09/03/2012 23:59:59 CLS Outpatient NASH LIRIANO DDS [id number] 08/19/2012 10:57:00 08/19/2012 23:59:59 CLS Outpatient [id number] 03/23/2012 15:23:00 03/23/2012 23:59:59 CLS Outpatient [id number] 03/23/2012 15:23:00 03/23/2012 23:59:59 CLS Outpatient PETRA GARZON MD [id number] 12/10/2012 13:42:00 Document Registration [id number] 06/08/2018 15:56:00 06/08/2018 17:46:00 DIS Outpatient ROSARIO URIOSTEGUI [facility] ER L RIB PAIN [id number] 05/27/2018 10:34:00 05/27/2018 23:59:59 CLS Outpatient PETRA GARZON MD [facility] RAD SEIZURES [id number] 05/13/2018 11:27:00 05/13/2018 13:01:00 DIS Emergency AMI CALLAHAN PLANT PATHOLOGIST [facility] ER L SIDE PAIN [id number] 12/07/2017 09:26:00 12/07/2017 10:46:00 DIS Emergency BECCA BURK DO [facility] ER CHEST PAIN [id number] 09/15/2016 10:05:00 09/15/2016 13:10:00 DIS Emergency AMI CALLAHAN PLANT PATHOLOGIST [facility] ER SUICIDAL [id number] 01/17/2016 11:07:00 01/17/2016 23:59:59 CLS Outpatient SCARLETT WARD MD ([facility]) [facility] RAD DDU [id number] 12/22/2013 12:03:00 12/22/2013 14:06:00 DIS Emergency BECCA BURK DO [facility] ER CHEST PAIN [id number] 09/15/2013 14:04:00 09/15/2013 14:55:00 DIS Emergency AMI CALLAHAN APRN [facility] ER ADRIANA HAND PAIN [id number] 07/04/2013 07:56:00 07/04/2013 11:12:00 DIS Outpatient NIRANJAN ALATORRE MD [facility] SDC RECTAL BLEEDING [id number] 06/29/2013 07:34:00 06/29/2013 23:59:59 CLS Outpatient NIRANJAN ALATORRE MD [facility] PREOP RECTAL BLEEDING [id number] 08/14/2011 10:29:00 Document Registration
--- NOTE | 2018-07-07 15:27 | ED Chest Pain ---
General Chief Complaint: Chest Wall/Rib Pain Stated Complaint: RIB PAIN Source: patient Exam Limitations: no limitations History of Present Illness Date Seen by Provider: Jul 07, 2018 Time Seen by Provider: 15:13 Initial Comments The patient presents to the ER by private conveyance with chief complaint that yesterday he was coughing a nonproductive cough and felt a loud popping sensation in his left lower rib cage. The pain starts in his mid axillary line at the 11th ribs and radiates around to his back. He is afraid he may have broke something. He has a lot of pain on movement and took one tablet of ibuprofen 800 mg last night. He does have a history of asthma and has been using his inhalers. He denies any fever nausea vomiting chills diarrhea. Allergies and Home Medications Allergies Coded Allergies: Penicillins (Unverified Allergy, Mild, 11/07/09) codeine (Unverified Allergy, Mild, 11/07/09) egg (Verified Allergy, Unknown, 09/15/16) Home Medications Albuterol 8.5 Gm Hfa.aer.ad, 2 PUFF IH QID PRN for SHORTNESS OF BREATH, ( Reported) NEEDED FOR SHORTNESS OF BREATH Beclomethasone Dipropionate 7.3 Gm Aer.w.adap, 2 PUFF IH BID, (Reported) 40 MCG Cefdinir 300 Mg Capsule, 300 MG PO BID Prescribed by: AMI CALLAHAN on 09/15/16 1213 Cyclobenzaprine HCl 10 Mg Tablet, 10 MG PO Q8H Prescribed by: BECCA BURK on 12/07/17 1032 Hydrocodone Bit/Acetaminophen 1 Each Tablet, 1 TAB PO BID PRN for PAIN, ( Reported) NEEDED FOR PAIN 5-325MG TABLET Hydrocodone Bit/Acetaminophen 1 Tab Tab, 1-2 EACH PO Q6H PRN for PAIN-MODERATE Prescribed by: ROSARIO URIOSTEGUI on 06/08/18 1729 Hyoscyamine Sulfate 0.125 Mg Tab, 1-2 EACH PO Q4HR PRN PRN for CRAMPS Prescribed by: BECCA BURK on 12/22/13 1401 Ibuprofen 800 Mg Tablet, 800 MG PO q8h PRN for PAIN, (Reported) Lorazepam 1 Mg Tablet, 1 MG PO BID PRN for ANXIETY Prescribed by: AMI CALLAHAN on 09/15/16 1153 Lorazepam 0.5 Mg Tablet, 0.5 MG PO TID PRN for ANXIETY Prescribed by: ROSARIO URIOSTEGUI on 06/08/18 1729 Methylprednisolone 4 Mg Tab.ds.pk, 4 MG PO UD Prescribed by: BECCA BURK on 12/07/17 1032 Montelukast Sodium 10 Mg Tablet, 10 MG PO DAILY, (Reported) Ondansetron Hcl 4 Mg Tab, 4 MG SL Q4H FOR NAUSEA AND VOMITING Prescribed by: BECCA BURK on 12/22/13 1401 Oxycodone HCl/Acetaminophen 1 Each Tablet, 1 EACH PO Q4H PRN for PAIN-MODERATE Prescribed by: AMI CALLAHAN on 05/13/18 1245 Patient Home Medication List Home Medication List Reviewed: Yes Review of Systems Review of Systems Constitutional: No chills, No diaphoresis EENTM: No Blurred Vision, No Double Vision Respiratory: Cough; Denies Shortness of Air Cardiovascular: See HPI; Denies Chest Pain, Denies Edema Gastrointestinal: Denies Abdomen Distended, Denies Abdominal Pain Genitourinary: Denies Burning, Denies Discharge Musculoskeletal: No back pain, No joint pain Past Zbxbefw-Cxuifk-Stimic Hx Patient Social History Alcohol Use: Denies Use Recreational Drug Use: No Drug of Choice: marijuana Smoking Status: Current Everyday Smoker Type Used: Cigarettes 2nd Hand Smoke Exposure: Yes Recent Hopitalizations: No Past Medical History Surgeries: Yes Orthopedic Respiratory: Yes Asthma, COPD Cardiac: Yes Hypertension Neurological: No Genitourinary: No Gastrointestinal: Yes Gastroesophageal Reflux, Hemorrhoids Musculoskeletal: Yes Chronic Back Pain Endocrine: No HEENT: No Cancer: No Psychosocial: Yes (MOOD SWINGS) Sleep Difficulties, Depression Integumentary: No Blood Disorders: No Physical Exam Vital Signs Vital Signs - First Documented 07/07/18 14:59 Temp 98.0 Pulse 69 Resp 18 B/P (MAP) 140/98 (112) Pulse Ox 98 O2 Delivery Room Air Capillary Refill : Height, Weight, BMI Height: 6'4.00" Weight: 200lbs. 0oz. 90.082994kv; 26.78 BMI Method:Stated General Appearance: WD/WN, Mild Distress HEENT: PERRL/EOMI, Pharynx Normal, Moist Mucous Membranes Respiratory: Lungs Clear, Normal Breath Sounds, No Accessory Muscle Use, Accessory Muscle Use, Other (left ribs nondisplaced and without deformity erythema or ecchymoses. Tender to palpation over the costal margins starting around the mid axillary line towards the posterior.) Cardiovascular: Regular Rate, Rhythm, Normal Peripheral Pulses Gastrointestinal: Normal Bowel Sounds, Non Tender, Soft Neurologic/Psychiatric: Alert, Oriented x3 Skin: Normal Color, Warm/Dry Progress/Results/Core Measures Results/Orders My Orders Orders - DEVANG HOLLOWAY Ketorolac Injection (Toradol Injection) (07/07/18 15:30) Chest Pa/Lat (2 View) (07/07/18 15:23) Medications Given in ED Current Medications Medications Dose Ordered Sig/Adonay Route Start Time Stop Time Status Last Admin Dose Admin Ketorolac Tromethamine 30 mg ONCE ONCE IM 07/07/18 15:30 07/07/18 15:31 DC 07/07/18 15:34 30 MG Vital Signs/I&O 07/07/18 14:59 Temp 98.0 Pulse 69 Resp 18 B/P (MAP) 140/98 (112) Pulse Ox 98 O2 Delivery Room Air Progress Progress Note : Time: 15:27 Progress Note Ketorolac and chest x-ray Diagnostic Imaging Diagonstic Imaging: Xray Plain Films/CT/US/NM/MRI: chest (2v) Comments VIA [facility]. [place], [place] NAME: [facility] REC#: [id number] PT STATUS: REG ER : 1980 PHYSICIAN: DEVANG HOLLOWAY MD ADMIT DATE: 07/07/18/ER Draft Date of Exam:07/07/18 CHEST PA/LAT (2 VIEW) INDICATION: Cough with left chest pain. AP and lateral views of the chest are obtained. Comparison is made to study of 05/13/2018. FINDINGS: There are mildly displaced fractures involving the lateral aspect of the left seventh and eighth ribs, which have occurred since the previous study. No pneumothorax identified. There is no significant pleural fluid. Heart size and pulmonary vascularity remain within normal limits. IMPRESSION: Mildly displaced fractures involving the lateral aspect of left seventh and eighth ribs. Dictated on workstation # [id number] Dict: 07/07/18 1546 Trans: 07/07/18 1556 [id number] Interpreted by: MANN TATE MD Electronically signed by: Reviewed: Reviewed by Me Departure Impression Primary Impression: Left rib fracture Qualified Codes: S22.42XA - Multiple fractures of ribs, left side, initial encounter for closed fracture Disposition: HOME, SELF-CARE Condition: Improved Departure-Patient Inst. Decision time for Depature: 16:16 Referrals: PETRA GARZON MD (PCP/Family) Primary Care Physician Patient Instructions: Rib Fracture (DC) Add. Discharge Instructions: You may use a rib wrap if you wish. Topical creams such as icy hot, Biofreeze etc. or helpful. Apply ice directly over the spot that hurts alternated with heat. Use Tylenol 1000 mg every 8 hours in addition to ibuprofen 800 mg every 8 hours as needed for pain. If you still cannot stand the pain then you can take one half to one tablet of hydrocodone every 6 hours as needed for pain relief. Follow-up in one week with primary care for reevaluation. If you have difficulty breathing, fevers above 102.5 or productive cough then you can return to the ER for further evaluation. All discharge instructions reviewed with patient and/or family. Voiced understanding. Scripts Hydrocodone Bit/Acetaminophen (Hydrocodone/Acetaminophen 5/325mg Tablet) 1 Tab Tab 1 EACH PO Q6H PRN for PAIN-MODERATE MDD 10, #14 TAB 0 Refills Prov: DEVANG HOLLOWAY 07/07/18 Copy Copies To 1: PETRA GARZON MD, TITUS J Jul 07, 2018 15:27
[2018-07-07] MEDS ORDERED: KETOROLAC 30 MG/ML VIAL IM ONE (15:30)
--- NOTE | 2018-07-07 15:57 | Diagnostic Imaging Report ---
INDICATION: Cough with left chest pain. AP and lateral views of the chest are obtained. Comparison is made to study of 05/13/2018. FINDINGS: There are mildly displaced fractures involving the lateral aspect of the left seventh and eighth ribs, which have occurred since the previous study. No pneumothorax identified. There is no significant pleural fluid. Heart size and pulmonary vascularity remain within normal limits. IMPRESSION: Mildly displaced fractures involving the lateral aspect of left seventh and eighth ribs. Dictated by: Dictated on workstation # [id number]
[2018-07-07] MEDS ORDERED: ACHD5005 PO (16:19)
[2018-07-07 16:27] VITALS: BP 140/98
== END 2018-07-07 16:26 | disposition home or self-care (01) ==
LOC: ER 14:35 → EDUNIT# 14:35 → ER 16:26
DX: S22.42XA Multiple fractures of ribs, left side, initial encounter for closed fracture (principal); J44.9 Chronic obstructive pulmonary disease, unspecified; I10 Essential (primary) hypertension; K21.9 Gastro-esophageal reflux disease without esophagitis; F32.9 Major depressive disorder, single episode, unspecified; F12.10 Cannabis abuse, uncomplicated; F17.210 Nicotine dependence, cigarettes, uncomplicated; Z88.0 Allergy status to penicillin; Z87.19 Personal history of other diseases of the digestive system; Z88.5 Allergy status to narcotic agent; Z79.51 Long term (current) use of inhaled steroids; Z79.52 Long term (current) use of systemic steroids; X50.1XXA Overexertion from prolonged static or awkward postures, initial encounter
CPT/HCPCS: 71046

== ENCOUNTER 2018-10-16 18:26 | Emergency (ER) | payer OTHER ==
[~2018-10-16] VITALS: Ht 193 cm; Wt 127.0 kg
--- OUTSIDE RECORDS SUMMARY | 2018-10-16 18:32 | XMS REPORT ---
Author Author PETRA GARZON [facility] Address [address] [place] [address] Care Team Providers Care It Program Engagement Director Name Role Phone PETRA GARZON Unavailable PROBLEMS Type Condition ICD9-CM Code SXY43-IP Code Onset Dates Condition Status SNOMED Code Problem Anxiety, generalized F41.1 Active 44414824 Problem Post-traumatic stress disorder F43.10 Active 82921281 Problem Cannabis dependence F12.20 Active 62413199 Problem Seizures R56.9 Active 24064736 Problem Other chronic pain G89.29 Active 79498415 Problem Adjustment disorder with mixed anxiety and depressed mood F43.23 Active 15391504 Problem Chronic post-traumatic stress disorder (PTSD) F43.12 Active 092013508 Problem Adjustment disorder with depressed mood F43.21 Active 82860196 Problem Adjustment disorder with anxious mood F43.22 Active 11942536 Problem Bipolar disorder, unspecified F31.9 Active 84204701 Problem Gastroesophageal reflux disease without esophagitis K21.9 Active 882849764 Problem Cigarette nicotine dependence with other nicotine-induced disorder F17.218 Active 40081326 Problem Panic disorder with agoraphobia F40.01 Active 82707923 Problem Moderate persistent asthma without complication J45.40 Active 673000587 Problem Cannabis use disorder, moderate, dependence F12.20 Active 39343191 Problem Obstructive sleep apnea syndrome G47.33 Active 35844276 ALLERGIES No Information ENCOUNTERS Encounter Location Date Diagnosis [facility] [address] [facility] [id number], [place] [address] Aug, [facility] [address] [address] Jul, [facility] [address] [id number], [place] [address] Jul, [facility] [address] [id number], [place] [address] Jun, [facility] [place] [facility] [address] [facility] [id number] [place] [address]- 0[address] Jun, [facility] [place] [facility] [address] [facility] [id number] [place] [address], [place] [address]- 8336 Jun, [facility] [place] [facility] [id number] [place] [address], [place] [address]- 5637 Jun, Seizures R56.9 [facility] [place] [facility] [address] [facility] [id number] [place] [address], [place] [address]- 9694 Jun, [facility] [place] [facility] [address] [facility] [id number] [place] [address], [place] [address]- 5823 May, [facility] [place] [facility] [address] [facility] [id number] [place] [address], [place] [address]- 7854 May, [facility] [place] [facility] [id number] [place] [address], [place] [address]- 8429 May, [facility] [place] [facility] [address] [facility] [id number] [place] [address], [place] [address]- 9154 May, [facility] [place] [facility] [id number] [place] [address], [place] [address]- 6997 May, [facility] [place] [facility] [id number] [address]- 8630 May, [facility] [place] [facility] [id number] [place] [address], [place] [address]- 1259 May, [facility] [place] [facility] [address] [facility] [id number], [place] [address] 6[address] May, Seizures R56.9 [facility] [place] [facility] [address] [facility] [id number] [place] [address]- 4809 May, [facility] [place] [facility] [address] [facility] [id number] [place] [address] Apr, [facility] [place] [facility] [address] [id number] [address] Apr, [address] [address] [address], [place] [address]- 7557 Apr, [address] [id number] [place] [address] 01953- 6034 Apr, [place] [id number] [place] [address] 94407- 6257 Apr, Bipolar disorder, unspecified F31.9 ; Panic disorder with agoraphobia F40.01 and Cannabis use disorder, moderate, dependence F12.20 [place] [id number] [place] [address] 25404- 3986 Mar, [place] [id number] [place] [address] 79264- 2143 Mar, [place] [id number] [place] [address] 75244- 5346 Jan, Low back pain M54.5 ; Moderate persistent asthma without complication J45.40 and Other chronic pain G89.29 [place] [address] [place] [address] 21942- 3402 Jan, Moderate persistent asthma without complication J45.40 ; Low back pain M54.5 ; Other chronic pain G89.29 ; Gastroesophageal reflux disease without esophagitis K21.9 and Cigarette nicotine dependence with other nicotine-induced disorder F17.218 [place] [address] [place] [address] 04899- 2963 December, Bipolar disorder, unspecified F31.9 ; Panic disorder with agoraphobia F40.01 ; Cannabis use disorder, moderate, dependence F12.20 and Chronic post-traumatic stress disorder (PTSD) F43.12 [place] [id number] [place] [address] 97200- 4963 December, [place] [id number] [place] [address] 74250- 4150 December, [place] [id number] [place] [address] 18096- 0561 Nov, [place] [address] [place] [address] 97215- 3247 Oct, Bipolar disorder, unspecified F31.9 ; Chronic post- traumatic stress disorder (PTSD) F43.12 ; Panic disorder with agoraphobia F40.01 and Cannabis use disorder, moderate, dependence F12.20 [place] [id number] [place] [address] 13108- 5857 Sep, [place] [id number] [place] [address] 80865- 1699 Sep, [address] [address]- 9472 Aug, [place] [id number] [place] [address] 57797- 5573 Aug, Cannabis use disorder, moderate, dependence F12.20 ; Panic disorder with agoraphobia F40.01 and Bipolar affective disorder, currently depressed, moderate F31.32 [place] [id number] [place] [address] 53305- 0139 May, Diarrhea of presumed infectious origin A09 and Nausea and vomiting, intractability of vomiting not specified, unspecified vomiting type R11.2 [address] [id number] [place] [address] 62079- 7575 Apr, [place] [id number] [place] [address] 69917- 1530 Mar, Nausea R11.0 and Gastroenteritis K52.9 [address] [id number] [place] [address] 66520- 0085 Mar, Gastroesophageal reflux disease without esophagitis K21.9 [address] [id number] [place] [address] 15132- 5352 Mar, Gastroesophageal reflux disease without esophagitis K21.9 [address] [id number] [place] [address] 49333- 4884 Mar, [place] [address] [place] [address] 61272- 5785 Mar, [place] [id number] [place] [address] 25881- 4412 Mar, [place] [id number] [place] [address] 56094- 9397 Feb, Acute pain of right shoulder M25.511 and Muscle spasm M62.838 [place] [id number] [place] [address] 31678- 7633 Feb, Acute labyrinthitis, unspecified laterality H83.09 [place] [id number] [place] [address] 21562- 4866 December, [place] [id number] [place] [address] 99480- 4292 December, [place] [id number] [place] [address] 57386- 0871 December, Cannabis use disorder, moderate, dependence F12.20 ; Anxiety , generalized F41.1 ; Adjustment disorder with mixed anxiety and depressed mood F43.23 and Chronic post-traumatic stress disorder (PTSD) F43.12 [place] [address] [place] [address] 26744- 4929 December, [place] [id number] [place] [address] 87217- 9176 December, [place] [id number] [place] [address] 76021- 3941 Nov, Acute nasopharyngitis J00 [place] [id number] [place] [address] 55153- 8970 Nov, Cannabis use disorder, moderate, dependence F12.20 ; Anxiety , generalized F41.1 ; Adjustment disorder with mixed anxiety and depressed mood F43.23 and Chronic post-traumatic stress disorder (PTSD) F43.12 [place] [id number] [place] [address] 50960- 8756 Nov, Cannabis use disorder, moderate, dependence F12.20 ; Anxiety , generalized F41.1 ; Adjustment disorder with mixed anxiety and depressed mood F43.23 and Chronic post-traumatic stress disorder (PTSD) F43.12 [place] [address] [place] [address] 31 Oct, 2016 Diarrhea, unspecified R19.7 ; Vomiting, unspecified R11.10 and Viral gastroenteritis A08.4 [address] [address] [id number] [place] [address]474 29 Oct, 2016 Bipolar disorder, unspecified F31.9 ; Panic disorder with agoraphobia F40.01 ; Cannabis use disorder, moderate, dependence F12.20 ; Cigarette nicotine dependence with other nicotine-induced disorder F17.218 ; Anxiety, generalized F41.1 ; Post-traumatic stress disorder F43.10 and Adjustment disorder with mixed anxiety and depressed mood F43.23 [address] [id number] [place] [address] 71384- 8658 Oct, Bipolar disorder, unspecified F31.9 ; Chronic post- traumatic stress disorder (PTSD) F43.12 ; Panic disorder with agoraphobia F40.01 and Cannabis use disorder, moderate, dependence F12.20 [address] [place] [address] 83716- 8590 Oct, Bipolar disorder, unspecified F31.9 ; Panic disorder with agoraphobia F40.01 ; Cannabis use disorder, moderate, dependence F12.20 ; Cigarette nicotine dependence with other nicotine-induced disorder F17.218 ; Anxiety, generalized F41.1 ; Post-traumatic stress disorder F43.10 and Adjustment disorder with mixed anxiety and depressed mood F43.23 [place] [id number] [place]- 5128 14 Oct, 2016 Viral gastroenteritis A08.4 [address] [id number] [place] [address] 5046 09 Oct, 2016 Anxiety, generalized F41.1 ; Post-traumatic stress disorder F43.10 ; Adjustment disorder with depressed mood F43.21 and Adjustment disorder with anxious mood F43.22 [address] [place] [address] 24219- 7184 Oct, Panic disorder with agoraphobia F40.01 ; Cannabis use disorder, moderate, dependence F12.20 ; Bipolar disorder, unspecified F31.9 ; Cigarette nicotine dependence with other nicotine-induced disorder F17.218 ; Adjustment disorder with anxious mood F43.22 ; Anxiety, generalized F41.1 ; Post -traumatic stress disorder F43.10 and Cannabis dependence F12.20 [address] [address] [id number] [place] [address] 94728- 0399 Oct, Bipolar disorder, unspecified F31.9 and Chronic post- traumatic stress disorder (PTSD) F43.12 [place] [id number] [place] [address] 36742- 2239 Oct, Bipolar disorder, unspecified F31.9 and Chronic post- traumatic stress disorder (PTSD) F43.12 [address] [place] [id number] [place] [address] 05751- 2440 Sep, Bipolar disorder, unspecified F31.9 ; Panic disorder with agoraphobia F40.01 ; PTSD (post-traumatic stress disorder) F43.10 ; Cannabis use disorder, moderate, dependence F12.20 ; Cannabis dependence F12.20 and Anxiety, generalized F41.1 [address] [id number] [place] [address] 08565- 7454 Sep, Cannabis use disorder, moderate, dependence F12.20 ; Anxiety , generalized F41.1 and Adjustment disorder with mixed anxiety and depressed mood F43.23 [address] [place] [address] 18851- 8447 15 Sep, 2016 Bipolar disorder, unspecified F31.9 ; Panic disorder with agoraphobia F40.01 ; PTSD (post-traumatic stress disorder) F43.10 ; Cannabis use disorder, moderate, dependence F12.20 ; Cannabis dependence F12.20 and Anxiety, generalized F41.1 [address] [id number] [place] [address] 77719- 2692 Sep, Bipolar disorder, unspecified F31.9 ; Panic disorder with agoraphobia F40.01 ; PTSD (post-traumatic stress disorder) F43.10 ; Cannabis use disorder, moderate, dependence F12.20 ; Cannabis dependence F12.20 and Anxiety, generalized F41.1 [place] [id number] [place]- 5304 Sep, Bipolar disorder, unspecified F31.9 ; Post-traumatic stress disorder F43.10 and Cannabis dependence F12.20 [address] [place] [address] Sep, [place] [address]- 7554 Sep, Suicidal behavior without attempted self-injury R46.89 [address] [id number] [place] [address] 153972- 1777 Sep, [place] [id number] [place] [address] 80766- 6326 Sep, Cannabis use disorder, moderate, dependence F12.20 ; Panic disorder with agoraphobia F40.01 ; Bipolar disorder, unspecified F31.9 and Anxiety, generalized F41.1 [place] [address] [place] [address] 68204- 0843 Sep, Bipolar disorder, unspecified F31.9 ; PTSD (post-traumatic stress disorder) F43.10 ; Panic disorder with agoraphobia F40.01 and Cannabis use disorder, moderate, dependence F12.20 [place] [id number] [place] [address] 77215- 1761 Sep, [address] [address]- 2656 Sep, PTSD (post-traumatic stress disorder) F43.10 ; Cannabis use disorder, moderate, dependence F12.20 and Suicidal risk R45.89 [place] [id number] [place] [address] Sep, [facility] [address] [place] [address] 88375- 7305 Jul, Bipolar disorder, unspecified F31.9 ; PTSD (post-traumatic stress disorder) F43.10 and Panic disorder with agoraphobia F40.01 [facility] [address] [place] [address] 43485- 3289 Jul, Obstructive sleep apnea syndrome G47.33 ; Moderate persistent asthma without complication J45.40 and Cigarette nicotine dependence with other nicotine-induced disorder F17.218 [facility] [id number] [place] [address] 24470- 6371 Jul, [facility] [id number] [place] [address] 00193- 2623 Jul, [facility] [id number] [place] [address] 31039- 7527 May, [facility] [id number] [place] [address] 62537- 7935 May, [facility] [id number] [place] [address] 53167- 1197 May, [facility] [address] [place] [address] 45525- 7857 Apr, [facility] [id number] [place] [address] 24518- 8455 Apr, Bipolar disorder, unspecified F31.9 ; PTSD (post-traumatic stress disorder) F43.10 ; Panic disorder with agoraphobia F40.01 and Cannabis use disorder, moderate, dependence F12.20 [facility] [id number] [place] [address] 96402- 4716 Mar, Uncomplicated asthma, unspecified asthma severity J45.909 [facility] [address] [place] [address] 05656- 4697 Mar, [facility] [id number] [place] [address] 78476- 1985 Mar, Moderate persistent asthma without complication J45.40 ; Gastroesophageal reflux disease without esophagitis K21.9 and Cigarette nicotine dependence with other nicotine-induced disorder F17.218 [place] [id number] [place] [address] 75699- 6309 Feb, [place] [id number] [place] [address] 32435- 2893 Jan, Bipolar disorder, unspecified F31.9 ; PTSD (post-traumatic stress disorder) F43.10 ; Panic disorder with agoraphobia F40.01 and Cannabis use disorder, moderate, dependence F12.20 [place] [id number] [place] [address] 04250- 0272 December, [place] [id number] [place] [address] 29170- 8705 Nov, [place] [id number] [place] [address] 23618- 2485 Nov, Bipolar disorder, unspecified F31.9 ; PTSD (post-traumatic stress disorder) F43.10 ; Panic disorder with agoraphobia F40.01 and Cannabis use disorder, moderate, dependence F12.20 [place] [address] [place] [address] 56125- 3318 Oct, [place] [id number] [place] [address] 93823- 7432 Oct, [place] [id number] [place] [address] 89561- 9447 Sep, [place] [id number] [place] [address] 47255- 6922 Sep, Bipolar disorder, unspecified F31.9 ; PTSD (post-traumatic stress disorder) F43.10 ; Panic disorder with agoraphobia F40.01 and Cannabis use disorder, moderate, dependence F12.20 [place] [id number] [place] [address] 26296- 8211 Aug, [facility] [id number] [place] [address] 45672- 7583 Aug, [facility] [id number] [place] [address] 286478- 8383 Aug, Bipolar disorder, unspecified F31.9 ; PTSD (post-traumatic stress disorder) F43.10 ; Panic disorder with agoraphobia F40.01 and Cannabis use disorder, moderate, dependence F12.20 [facility] [id number] [place] [address] 38119- 3110 Jul, [facility] [id number] [place] [address] 225754- 4499 Apr, GERD (gastroesophageal reflux disease) 530.81 and Internal hemorrhoids 455.0 [place] [id number] [place] [address] 33597- 2910 Feb, Rectal bleeding 569.[address] [facility] [id number] [place] [address] 03747- 9457 Jan, Sinusitis 473.[address] [facility] [id number] [place] [address] 32062- 3776 December, [facility] [id number] [place] [address] 72826- 8019 Nov, [facility] [id number] [place] [address] 81035- 0145 Nov, [facility] [address] [place] [address] 84414357- 5[address] Oct, [facility] [id number] [place] [address] 224752- [address]366 Oct, [facility] [address] [place] [address] 076280- 7976 Sep, [facility] [id number] [place] [address] 61666- 7579 04 Sep, 2014 [facility] [place] [facility] [address] [id number] [place] [address]- 9152 Aug, [facility] [place] [facility] [address] [id number] [place] [address]- 6602 Aug, [facility] [place] [facility] [address] [facility] [id number] [place] [address]- 8098 Jul, [facility] [place] [facility] [address] [id number] [place] [address]- 4679 Jul, [facility] [place] [facility] [address] [id number] [place] [address]- 7377 Jul, [facility] [place] [facility] [address] [id number] [place] [address]- 4281 Jul, [facility] [place] [facility] [address] [facility] [id number] [place] [address]- 9319 Jul, [facility] [place] [facility] [address] [id number] [place] [address]- 1604 Jul, [facility] [place] [facility] [address] [facility] [id number] [place] [address]- 6495 Jul, [facility] [place] [facility] [address] [facility] [id number] [place] [address]- 7768 Jul, [facility] [place] [facility] [address] [id number], [place] [address]- 7784 Jun, [facility] [place] [facility] [address] [id number], [place] [address]- 5941 Jun, [facility] [place] [facility] [address] [id number], [place] [address]- 0501 Jun, [facility] [place] [facility] [address] [facility] [id number], [place] [address]- 0236 Jun, [facility] [place] [facility] [address] [facility] [id number] [place] [address]- 4573 May, [facility] [place] [facility] [address] [id number] [place] [address] 2549 May, [facility] [place] [facility] [address] [id number] [place] [address]- 0315 May, [facility] [place] [facility] [address] [id number] [place] [address]- 2546 May, [facility] [place] [facility] [address] [id number] [place] [address]- 8114 Apr, [facility] [place] [facility] [address] [id number] [place] [address]- 7540 Apr, [facility] [place] [facility] [address] [id number] [place] [address]- 2862 Apr, [facility] [place] [facility] [address] [id number] [place] [address]- 7797 Apr, [facility] [place] [facility] [address] [id number] [place] [address]- 5260 Mar, [facility] [place] [facility] [address] [id number] [place] [address]- 0451 Mar, [facility] [place] [facility] [address] [id number] [place] [address]- 9906 Mar, [facility] [place] [facility] [address] [id number] [place] [address]- 8010 Mar, [facility] [place] [facility] [address] [id number] [place] [address]- 8383 December, [facility] [place] [facility] [address] [id number] [place] [address]- 2014 December, [facility] [place] [facility] [address] [id number] [place] [address]- 0156 Nov, [facility] [place] [facility] [address] [id number] [place] [address]- 3086 Nov, [facility] [place] [facility] [address] [id number] [place] [address]- 8758 Sep, [facility] [place] [facility] [address] [id number] [place] [address]- 2369 Sep, [facility] [place] [facility] [address] [id number] [place] [address] Sep, [facility] [place] [facility] [address] [facility] [id number] [place] [address] Sep, [facility] [place] [facility] [address] [id number] [place] [address] Aug, [facility] [place] [facility] [address] [id number] [place] [address] Jul, [facility] [place] [facility] [address] [id number] [place] [address] Jul, [facility] [place] [facility] [address] [facility] [id number] [place] [address] Jun, [facility] [place] [facility] [address] [id number] [place] [address] Jun, [facility] [place] [facility] [address] [id number] [place] [address] May, [facility] [place] [facility] [address] [id number] [place] [address] May, [facility] [place] [facility] [address] [id number], [place] [address] 07 May, 2013 [facility] [place] [facility] [address] [id number], [place] [address] 17 Apr, 2012 [facility] [place] [facility] [address] [id number] [place] [address] 16 Apr, 2012 [facility] [place] [facility] [address] [facility] [id number] [place] [address] 09 Apr, 2013 [facility] [place] [facility] [address] [facility] [id number] [place] [address] 09 Apr, 2012 [facility] [place] [facility] [address] [id number] [place] [address] 30 Mar, 2013 [facility] [address] [id number] [place] [address] Mar, [facility] [address] [id number] [place] [address] December, [facility] [address] [id number] [place] [address] Oct, [facility] [address] [id number] [place] [address] Oct, [facility] [address] [id number] [place] [address] Aug, [facility] [address] [id number] [place] [address] 17 Jul, 2012 [facility] [address] [id number] [place] [address] 17 Jul, 2012 [facility] [address] [id number] [place] [address] 13 Jul, 2012 [facility] [address] [id number] [place] [address] 13 Jul, 2012 [facility] [address] [id number] [place] [address] 14 Jun, 2012 [facility] [address] [id number] [place] [address] 14 Jun, 2012 [facility] [address] [id number] [place] [address] 14 Mar, 2012 [facility] [place] [facility] [address] [id number] [place] [address] 16 Feb, 2012 [facility] [address] [id number] [place] [address] 16 Feb, 2012 [facility] [address] [id number] [place] [address] December, [facility] [address] [id number] [place] [address] Nov, [facility] [place] [facility] [address] [id number] [place] [address] Oct, [facility] [place] [facility] [address] [id number] [place] [address] Oct, [facility] [place] [facility] [address] [id number] [place] [address] Sep, [facility] [address] [id number] [place] [address] Sep, [facility] [place] [facility] [address] [id number] [place] [address] Aug, [facility] [place] [facility] [address] [id number] [place] [address] Aug, [facility] [address] [id number] [place] [address] Jul, [facility] [place] [facility] [address] [id number] [place] [address] Jul, [facility] [place] [facility] [address] [id number] [place] [address] Jul, [facility] [place] [facility] [address] [id number] [place] [address] Jun, [facility] [place] [facility] [address] [id number], [place] [address] May, [facility] [place] [facility] [address] [id number] [place] [address] Apr, [facility] [place] [facility] [address] [id number] [place] [address] 18 Feb, 2011 [facility] [place] [facility] [address] [id number] [place] [address] Sep, [facility] [place] [facility] [address] [id number] [address] Jul, [facility] [id number] [address] Jul, [facility] [id number] [address] Jul, [facility] [id number] [address] Jul, [facility] [id number] [address] Jun, [facility] [id number] [place] [address] Feb, [facility] [id number] [address] Jan, [facility] [id number] [place] [address] Feb, [facility] [address] [id number], [place] [address] Jul, IMMUNIZATIONS No Known Immunizations SOCIAL HISTORY Never Assessed REASON FOR VISIT Medication question PLAN OF CARE VITAL SIGNS MEDICATIONS Medication Instructions Dosage Frequency Start Date End Date Duration Status Protonix 40 MG Orally Once a day 1 tablet 24h Jul, 30 day(s) Active RESULTS No Results PROCEDURES [...]
--- OUTSIDE RECORDS SUMMARY | 2018-10-16 18:32 | XMS REPORT ---
Author Author PETRA GARZON [facility] Address [address] [place] [address] Care Team Providers Care Implementation Consultant Name Role Phone PETRA GARZON Unavailable PROBLEMS Type Condition ICD9-CM Code JEK95-MO Code Onset Dates Condition Status SNOMED Code Problem Anxiety, generalized F41.1 Active 50940900 Problem Post-traumatic stress disorder F43.10 Active 48636902 Problem Cannabis dependence F12.20 Active 95400556 Problem Seizures R56.9 Active 89441025 Problem Other chronic pain G89.29 Active 29821535 Problem Adjustment disorder with mixed anxiety and depressed mood F43.23 Active 55861498 Problem Chronic post-traumatic stress disorder (PTSD) F43.12 Active 878271331 Problem Adjustment disorder with depressed mood F43.21 Active 27197991 Problem Adjustment disorder with anxious mood F43.22 Active 64359474 Problem Bipolar disorder, unspecified F31.9 Active 50411212 Problem Gastroesophageal reflux disease without esophagitis K21.9 Active 793699551 Problem Cigarette nicotine dependence with other nicotine-induced disorder F17.218 Active 30789419 Problem Panic disorder with agoraphobia F40.01 Active 85520597 Problem Moderate persistent asthma without complication J45.40 Active 997330852 Problem Cannabis use disorder, moderate, dependence F12.20 Active 38469813 Problem Obstructive sleep apnea syndrome G47.33 Active 86749288 ALLERGIES No Information ENCOUNTERS Encounter Location Date Diagnosis [facility] [address] [facility] [id number] [address] Aug, [facility] [id number] [address] Jul, [facility] [id number] [address] 7599 Jul, [facility] [address] [id number] [address] 29[address] Jun, [facility] [place] [facility] [address] [facility] [id number] [place] [address] 0396 Jun, [facility] [place] [facility] [address] [facility] [id number] [place] [address], [place] [address]- 0448 Jun, [facility] [place] [facility] [id number] [place] [address], [place] [address]- 5770 Jun, Seizures R56.9 [facility] [place] [facility] [address] [facility] [id number] [place] [address], [place] [address]- 3654 Jun, [facility] [place] [facility] [address] [facility] [id number] [place] [address], [place] [address]- 2557 May, [facility] [place] [facility] [address] [facility] [id number] [place] [address], [place] [address]- 2959 May, [facility] [place] [facility] [id number] [place] [address], [place] [address]- 9533 May, [facility] [place] [facility] [address] [facility] [id number] [place] [address], [place] [address]- 8318 May, [facility] [place] [facility] [id number] [place] [address], [place] [address]- 9479 May, [facility] [place] [facility] [id number] [place] [address]- 9622 May, [facility] [place] [facility] [id number] [place] [address], [place] [address]- 3094 May, [facility] [place] [facility] [address] [facility] [id number] [address]- 8767 May, Seizures R56.9 [facility] [place] [facility] [address] [facility] [id number] [place] [address]- 7930 May, [facility] [place] [facility] [address] [facility] [id number] [place] [address] Apr, [facility] [place] [facility] [address] [id number] [address] Apr, [place] [address] [address] [address] 9070 Apr, [place] [id number] [place] [address] 65462- 5232 Apr, [place] [id number] [place] [address] 81704- 0788 Apr, Bipolar disorder, unspecified F31.9 ; Panic disorder with agoraphobia F40.01 and Cannabis use disorder, moderate, dependence F12.20 [place] [id number] [place] [address] 27281- 2849 Mar, [place] [id number] [place] [address] 33567- 0744 Mar, [place] [id number] [place] [address] 01528- 3797 Jan, Low back pain M54.5 ; Moderate persistent asthma without complication J45.40 and Other chronic pain G89.29 [place] [address] [place] [address] 02715- 8571 Jan, Moderate persistent asthma without complication J45.40 ; Low back pain M54.5 ; Other chronic pain G89.29 ; Gastroesophageal reflux disease without esophagitis K21.9 and Cigarette nicotine dependence with other nicotine-induced disorder F17.218 [place] [address] [place] [address] 45471- 5065 December, Bipolar disorder, unspecified F31.9 ; Panic disorder with agoraphobia F40.01 ; Cannabis use disorder, moderate, dependence F12.20 and Chronic post-traumatic stress disorder (PTSD) F43.12 [place] [id number] [place] [address] 31965- 7078 December, [place] [id number] [place] [address] 16661- 3948 December, [place] [id number] [place] [address] 41927- 5501 Nov, [place] [address] [place] [address] 18787- 5587 Oct, Bipolar disorder, unspecified F31.9 ; Chronic post- traumatic stress disorder (PTSD) F43.12 ; Panic disorder with agoraphobia F40.01 and Cannabis use disorder, moderate, dependence F12.20 [place] [id number] [place] [address] 30192- 0130 Sep, [place] [id number] [place] [address] 55734- 6826 Sep, [address] [address]- 5078 Aug, [place] [id number] [place] [address] 93977- 3395 Aug, Cannabis use disorder, moderate, dependence F12.20 ; Panic disorder with agoraphobia F40.01 and Bipolar affective disorder, currently depressed, moderate F31.32 [place] [id number] [place] [address] 20307- 6870 May, Diarrhea of presumed infectious origin A09 and Nausea and vomiting, intractability of vomiting not specified, unspecified vomiting type R11.2 [place] [id number] [place] [address] 18997- 0411 Apr, [place] [id number] [place] [address] 78670- 9273 Mar, Nausea R11.0 and Gastroenteritis K52.9 [place] [id number] [place] [address] 53583- 8714 Mar, Gastroesophageal reflux disease without esophagitis K21.9 [place] [id number] [place] [address] 41457- 6213 Mar, Gastroesophageal reflux disease without esophagitis K21.9 [place] [id number] [place] [address] 10806- 6249 Mar, [place] [address] [place] [address] 35140- 2681 Mar, [place] [id number] [place] [address] 17202- 7062 Mar, [place] [id number] [place] [address] 82416- 5013 Feb, Acute pain of right shoulder M25.511 and Muscle spasm M62.838 [place] [id number] [place] [address] 42118- 7395 Feb, Acute labyrinthitis, unspecified laterality H83.09 [place] [id number] [place] [address] 68450- 6781 December, [place] [id number] [place] [address] 44900- 4910 December, [place] [id number] [place] [address] 68240- 7492 December, Cannabis use disorder, moderate, dependence F12.20 ; Anxiety , generalized F41.1 ; Adjustment disorder with mixed anxiety and depressed mood F43.23 and Chronic post-traumatic stress disorder (PTSD) F43.12 [place] [address] [place] [address] 94925- 4960 December, [place] [id number] [place] [address] 88573- 3036 December, [place] [id number] [place] [address] 26890- 0493 Nov, Acute nasopharyngitis J00 [place] [id number] [place] [address] 93478- 5914 Nov, Cannabis use disorder, moderate, dependence F12.20 ; Anxiety , generalized F41.1 ; Adjustment disorder with mixed anxiety and depressed mood F43.23 and Chronic post-traumatic stress disorder (PTSD) F43.12 [place] [id number] [place] [address] 41713- 8426 Nov, Cannabis use disorder, moderate, dependence F12.20 ; Anxiety , generalized F41.1 ; Adjustment disorder with mixed anxiety and depressed mood F43.23 and Chronic post-traumatic stress disorder (PTSD) F43.12 [place] [id number] [place] [address]- [address]16 31 Oct, 2016 Diarrhea, unspecified R19.7 ; Vomiting, unspecified R11.10 and Viral gastroenteritis A08.4 [place] [id number] [place] [address]- 3230 29 Oct, 2016 Bipolar disorder, unspecified F31.9 ; Panic disorder with agoraphobia F40.01 ; Cannabis use disorder, moderate, dependence F12.20 ; Cigarette nicotine dependence with other nicotine-induced disorder F17.218 ; Anxiety, generalized F41.1 ; Post-traumatic stress disorder F43.10 and Adjustment disorder with mixed anxiety and depressed mood F43.23 [place] [id number] [place] [address] 12368- 4607 Oct, Bipolar disorder, unspecified F31.9 ; Chronic post- traumatic stress disorder (PTSD) F43.12 ; Panic disorder with agoraphobia F40.01 and Cannabis use disorder, moderate, dependence F12.20 [address] [place] [address] 86378- 2528 Oct, Bipolar disorder, unspecified F31.9 ; Panic disorder with agoraphobia F40.01 ; Cannabis use disorder, moderate, dependence F12.20 ; Cigarette nicotine dependence with other nicotine-induced disorder F17.218 ; Anxiety, generalized F41.1 ; Post-traumatic stress disorder F43.10 and Adjustment disorder with mixed anxiety and depressed mood F43.23 [place] [place] [id number] [place] [address] 2765 14 Oct, 2016 Viral gastroenteritis A08.4 [address] [place] [id number] [place] [address]- 7446 09 Oct, 2016 Anxiety, generalized F41.1 ; Post-traumatic stress disorder F43.10 ; Adjustment disorder with depressed mood F43.21 and Adjustment disorder with anxious mood F43.22 [address] [place] [address] 85944- 7769 Oct, Panic disorder with agoraphobia F40.01 ; Cannabis use disorder, moderate, dependence F12.20 ; Bipolar disorder, unspecified F31.9 ; Cigarette nicotine dependence with other nicotine-induced disorder F17.218 ; Adjustment disorder with anxious mood F43.22 ; Anxiety, generalized F41.1 ; Post -traumatic stress disorder F43.10 and Cannabis dependence F12.20 [place] [id number] [place] [address] 17791- 7999 Oct, Bipolar disorder, unspecified F31.9 and Chronic post- traumatic stress disorder (PTSD) F43.12 [place] [id number] [place] [address] 37675- 6455 Oct, Bipolar disorder, unspecified F31.9 and Chronic post- traumatic stress disorder (PTSD) F43.12 [place] [id number] [place] [address] 87534- 4986 Sep, Bipolar disorder, unspecified F31.9 ; Panic disorder with agoraphobia F40.01 ; PTSD (post-traumatic stress disorder) F43.10 ; Cannabis use disorder, moderate, dependence F12.20 ; Cannabis dependence F12.20 and Anxiety, generalized F41.1 [place] [id number] [place] [address] 21458- 7245 Sep, Cannabis use disorder, moderate, dependence F12.20 ; Anxiety , generalized F41.1 and Adjustment disorder with mixed anxiety and depressed mood F43.23 [address] [place] [address] 93732- 3084 15 Sep, 2016 Bipolar disorder, unspecified F31.9 ; Panic disorder with agoraphobia F40.01 ; PTSD (post-traumatic stress disorder) F43.10 ; Cannabis use disorder, moderate, dependence F12.20 ; Cannabis dependence F12.20 and Anxiety, generalized F41.1 [place] [id number] [place] [address] 26795- 5450 Sep, Bipolar disorder, unspecified F31.9 ; Panic disorder with agoraphobia F40.01 ; PTSD (post-traumatic stress disorder) F43.10 ; Cannabis use disorder, moderate, dependence F12.20 ; Cannabis dependence F12.20 and Anxiety, generalized F41.1 [place] [id number] [place] [address]- 7206 Sep, Bipolar disorder, unspecified F31.9 ; Post-traumatic stress disorder F43.10 and Cannabis dependence F12.20 [address] [place] [address] Sep, [place] [address]- 7661 Sep, Suicidal behavior without attempted self-injury R46.89 [place] [id number] [place] [address] 950861- 3081 Sep, [place] [id number] [place] [address] 83559- 2851 Sep, Cannabis use disorder, moderate, dependence F12.20 ; Panic disorder with agoraphobia F40.01 ; Bipolar disorder, unspecified F31.9 and Anxiety, generalized F41.1 [place] [address] [place] [address] 71847- 8962 Sep, Bipolar disorder, unspecified F31.9 ; PTSD (post-traumatic stress disorder) F43.10 ; Panic disorder with agoraphobia F40.01 and Cannabis use disorder, moderate, dependence F12.20 [place] [id number] [place] [address] 86317- 8168 Sep, [address] 39153- 2131 Sep, PTSD (post-traumatic stress disorder) F43.10 ; Cannabis use disorder, moderate, dependence F12.20 and Suicidal risk R45.89 [place] [id number] [place] [address]- 2546 Sep, [facility] [address] [place] [address] 39979- 6986 Jul, Bipolar disorder, unspecified F31.9 ; PTSD (post-traumatic stress disorder) F43.10 and Panic disorder with agoraphobia F40.01 [facility] [address] [place] [address] 12391- 5264 Jul, Obstructive sleep apnea syndrome G47.33 ; Moderate persistent asthma without complication J45.40 and Cigarette nicotine dependence with other nicotine-induced disorder F17.218 [facility] [id number] [place] [address] 96944- 6860 Jul, [facility] [id number] [place] [address] 45421- 1058 Jul, [facility] [id number] [place] [address] 45112- 6981 May, [facility] [id number] [place] [address] 51018- 2144 May, [facility] [id number] [place] [address] 04108- 8193 May, [facility] [address] [place] [address] 92473- 7847 Apr, [facility] [id number] [place] [address] 08196- 8068 Apr, Bipolar disorder, unspecified F31.9 ; PTSD (post-traumatic stress disorder) F43.10 ; Panic disorder with agoraphobia F40.01 and Cannabis use disorder, moderate, dependence F12.20 [facility] [id number] [place] [address] 39806- 2005 Mar, Uncomplicated asthma, unspecified asthma severity J45.909 [facility] [address] [place] [address] 05709- 1821 Mar, [facility] [id number] [place] [address] 19062- 5384 Mar, Moderate persistent asthma without complication J45.40 ; Gastroesophageal reflux disease without esophagitis K21.9 and Cigarette nicotine dependence with other nicotine-induced disorder F17.218 [place] [id number] [place] [address] 71487- 7839 Feb, [place] [id number] [place] [address] 55661- 6946 Jan, Bipolar disorder, unspecified F31.9 ; PTSD (post-traumatic stress disorder) F43.10 ; Panic disorder with agoraphobia F40.01 and Cannabis use disorder, moderate, dependence F12.20 [place] [id number] [place] [address] 79643- 4385 December, [place] [id number] [place] [address] 15709- 3424 Nov, [place] [id number] [place] [address] 54851- 0788 Nov, Bipolar disorder, unspecified F31.9 ; PTSD (post-traumatic stress disorder) F43.10 ; Panic disorder with agoraphobia F40.01 and Cannabis use disorder, moderate, dependence F12.20 [place] [address] [place] [address] 88222- 1951 Oct, [place] [id number] [place] [address] 10006- 6849 Oct, [place] [id number] [place] [address] 41812- 4960 Sep, [place] [id number] [place] [address] 65551- 3276 Sep, Bipolar disorder, unspecified F31.9 ; PTSD (post-traumatic stress disorder) F43.10 ; Panic disorder with agoraphobia F40.01 and Cannabis use disorder, moderate, dependence F12.20 [place] [id number] [place] [address] 41522- 4878 Aug, [facility] [id number] [place] [address] 71517- 8467 Aug, [facility] [id number] [place] [address] 578968- 4684 Aug, Bipolar disorder, unspecified F31.9 ; PTSD (post-traumatic stress disorder) F43.10 ; Panic disorder with agoraphobia F40.01 and Cannabis use disorder, moderate, dependence F12.20 [facility] [id number] [place] [address] 52120- 3060 Jul, [facility] [id number] [place] [address] 261404- 9328 Apr, GERD (gastroesophageal reflux disease) 530.81 and Internal hemorrhoids 455.0 [place] [id number] [place] [address] 33915- 5263 Feb, Rectal bleeding 569.3 and Hemorrhoids 455.6 [facility] [id number] [place] [address] 72340- 6045 Jan, Sinusitis 473.9 and Otitis media 382.9 [facility] [id number] [place] [address] 41990- 4421 December, [facility] [id number] [place] [address] 01679- 9675 Nov, [facility] [id number] [place] [address] 17127- 1788 Nov, [facility] [address] [place] [address] [id number]- 2692 Oct, [facility] [id number] [place] [address] 927276- 7516 Oct, [facility] [address] [place] [address] 883155- 2526 Sep, [facility] [id number] [place] [address] 39728- 5131 04 Sep, 2014 [facility] [place] [facility] [address] [id number] [place] [address]- 7246 Aug, [facility] [place] [facility] [address] [id number] [place] [address]- 3531 Aug, [facility] [place] [facility] [address] [facility] [id number] [place] [address]- 4535 Jul, [facility] [place] [facility] [address] [id number] [place] [address]- 4651 Jul, [facility] [place] [facility] [address] [id number] [place] [address]- 3421 Jul, [facility] [place] [facility] [address] [id number] [place] [address]- 0097 Jul, [facility] [place] [facility] [address] [facility] [id number] [place] [address]- 5903 Jul, [facility] [place] [facility] [address] [id number] [place] [address]- 1964 Jul, [facility] [place] [facility] [address] [facility] [id number] [place] [address]- 4693 Jul, [facility] [place] [facility] [address] [facility] [id number] [place] [address]- 1759 Jul, [facility] [place] [facility] [address] [id number] [address]- 7959 Jun, [facility] [place] [facility] [address] [id number] [address]- 2700 Jun, [facility] [place] [facility] [address] [id number] [address]- 0885 Jun, [facility] [place] [facility] [address] [facility] [id number] [address]- 2962 Jun, [facility] [place] [facility] [address] [facility] [id number] [place] [address]- 8990 May, [facility] [place] [facility] [address] [id number] [place] [address] 2545 May, [facility] [place] [facility] [address] [id number] [place] [address]- 4430 May, [facility] [place] [facility] [address] [id number] [place] [address]- 2546 May, [facility] [place] [facility] [address] [id number] [place] [address]- 4604 Apr, [facility] [place] [facility] [address] [id number] [place] [address]- 5826 Apr, [facility] [place] [facility] [address] [id number] [place] [address]- 3832 Apr, [facility] [place] [facility] [address] [id number] [place] [address]- 2995 Apr, [facility] [place] [facility] [address] [id number] [place] [address]- 4250 Mar, [facility] [place] [facility] [address] [id number] [place] [address]- 3173 Mar, [facility] [place] [facility] [address] [id number] [place] [address]- 2850 Mar, [facility] [place] [facility] [address] [id number] [place] [address]- 5720 Mar, [facility] [place] [facility] [address] [id number] [place] [address]- 7441 December, [facility] [place] [facility] [address] [id number] [place] [address]- 0567 December, [facility] [place] [facility] [address] [id number] [place] [address]- 7693 Nov, [facility] [place] [facility] [address] [id number] [place] [address] Nov, [facility] [place] [facility] [address] [id number] [place] [address] Sep, [facility] [place] [facility] [address] [id number] [place] [address] Sep, [facility] [place] [facility] [address] [id number] [place] [address] Sep, [facility] [place] [facility] [address] [facility] [id number] [place] [address] Sep, [facility] [place] [facility] [address] [id number] [place] [address] Aug, [facility] [place] [facility] [address] [id number] [place] [address] Jul, [facility] [place] [facility] [address] [id number] [place] [address] Jul, [facility] [place] [facility] [address] [facility] [id number] [place] [address] Jun, [facility] [place] [facility] [address] [id number] [place] [address] Jun, [facility] [place] [facility] [address] [id number] [place] [address] May, [facility] [place] [facility] [address] [id number] [place] [address] May, [facility] [place] [facility] [address] [id number] [address] 07 May, 2013 [facility] [place] [facility] [address] [id number] [address] 17 Apr, 2012 [facility] [place] [facility] [address] [id number] [place] [address] 16 Apr, 2012 [facility] [place] [facility] [address] [facility] [id number] [place] [address] 09 Apr, 2013 [facility] [place] [facility] [address] [facility] [id number] [place] [address] 09 Apr, 2012 [facility] [place] [facility] [address] [id number] [place] [address] 30 Mar, 2013 [facility] [address] [id number] [place] [address] Mar, [facility] [address] [id number] [place] [address] December, [facility] [address] [id number] [place] [address] Oct, [facility] [address] [id number] [place] [address] Oct, [facility] [address] [id number] [place] [address] Aug, [facility] [facility] [address] [id number] [place] [address] 17 Jul, 2012 [facility] [address] [id number] [place] [address] 17 Jul, 2012 [facility] [address] [id number] [place] [address] 13 Jul, 2012 [facility] [address] [id number] [place] [address] 13 Jul, 2012 [facility] [address] [id number] [place] [address] 14 Jun, 2012 [facility] [address] [id number] [place] [address] 14 Jun, 2012 [facility] [address] [id number] [place] [address] 14 Mar, 2012 [facility] [place] [facility] [address] [id number] [place] [address] 16 Feb, 2012 [facility] [address] [id number] [place] [address] 16 Feb, 2012 [facility] [address] [id number] [place] [address] December, [facility] [address] [id number] [place] [address] Nov, [facility] [place] [facility] [address] [id number] [place] [address] Oct, [facility] [place] [facility] [address] [id number] [place] [address] Oct, [facility] [place] [facility] [address] [id number] [place] [address] Sep, [facility] [address] [id number] [place] [address] Sep, [facility] [place] [facility] [address] [id number] [place] [address] Aug, [facility] [place] [facility] [address] [id number] [place] [address] Aug, [facility] [address] [id number] [place] [address] Jul, [facility] [place] [facility] [address] [id number] [place] [address] Jul, [facility] [place] [facility] [address] [id number] [place] [address] Jul, [facility] [place] [facility] [address] [id number] [place] [address] Jun, [facility] [place] [facility] [address] [id number] [address] May, [facility] [place] [facility] [address] [id number] [place] [address] Apr, [facility] [place] [facility] [address] [id number] [place] [address] 18 Feb, 2011 [facility] [place] [facility] [address] [id number] [place] [address] Sep, [facility] [place] [facility] [address] [id number] [address] Jul, [facility] [address] [id number] [address] Jul, [facility] [address] [id number] [address] Jul, [facility] [id number] [address] Jul, [facility] [id number] [address] Jun, [facility] [id number] [place] [address] Feb, [facility] [id number] [address] Jan, [facility] [id number] [address] Feb, [facility] [id number] [address] Jul, IMMUNIZATIONS No Known Immunizations SOCIAL HISTORY Never Assessed REASON FOR VISIT Requests return call PLAN OF CARE VITAL SIGNS MEDICATIONS Medication Instructions Dosage Frequency Start Date End Date Duration Status Albuterol Sulfate (2.5 MG/3ML) 0.083% Inhalation Three times a day 3 ml as needed 8h Jul, 30 days Active RESULTS No Results PROCEDURES [...]
--- OUTSIDE RECORDS SUMMARY | 2018-10-16 18:48 | XMS REPORT | Continuity of Care Document ---
Author Author [facility] Address Unknown Phone Unavailable Allergies Active Description Code Type Severity Reaction Onset Reported/Identified Relationship to Patient Clinical Status Yes codeine Drug Allergy N/A N/A 01/08/2009 Yes Penicillins Drug Allergy N/A N/A 01/08/2009 Yes codeine Drug Allergy 01/08/2009 Yes Penicillins Drug Allergy 01/08/2009 Yes codeine [id number] Drug Allergy Mild N/A 11/07/2009 Yes Penicillins [id number] Drug Allergy Mild N/A 11/07/2009 Yes Phenergan with Codeine Drug Allergy 05/08/2011 Yes Flexeril 10 mg Tablet Drug Allergy N/A N/A 09/18/2011 Yes Flexeril 10 mg Tablet Drug Allergy 09/18/2011 Yes egg [id number] Drug Allergy Unknown N/A 09/15/2016 Medications There is no data. Problems Date Dx Coded Attending Type Code Diagnosis Diagnosed By 07/12/2008 465.9 Upper Respiratory Infection 07/12/2008 558.9 Gastroenteritis Noninfectious 07/12/2008 PETRA GARZON MD 465.9 Upper Respiratory Infection 07/12/2008 PETRA GARZON MD 558.9 Gastroenteritis Noninfectious 07/12/2008 465.9 Upper Respiratory Infection 07/12/2008 558.9 Gastroenteritis Noninfectious 07/12/2008 DEADNRA DDS, NASH F 465.9 Upper Respiratory Infection [...] 296.22 Mo Depressive Single Moderate 02/28/2009 NASH LRIIANO DDS 296.22 Mo Depressive Single Moderate 02/28/2009 [...] INT HEMORRHOID W/O COMPL 09/15/2013 AMI CALLAHAN EDUCATIONAL DIAGNOSTICIAN Ot 729.6 OLD FB IN SOFT TISSUE 09/15/2013 AMI CALLAHAN EDUCATIONAL DIAGNOSTICIAN Ot 842.00 SPRAIN OF WRIST NOS 09/15/2013 AMI CALLAHAN EDUCATIONAL DIAGNOSTICIAN Ot 959.3 ELB/FOREARM/WRST INJ NOS 09/15/2013 AMI CALLAHAN EDUCATIONAL DIAGNOSTICIAN Ot E000.8 OTHER EXTERNAL CAUSE STATUS 09/15/2013 AMI CALLAHAN EDUCATIONAL DIAGNOSTICIAN Ot E849.0 ACCIDENT IN HOME 09/15/2013 AMI CALLAHAN EDUCATIONAL DIAGNOSTICIAN Ot E928.9 ACCIDENT NOS 09/15/2013 AMI CALLAHAN EDUCATIONAL DIAGNOSTICIAN Ot V90.9 RETAINED FOREIGN BODY, UNSPECIFIED MATER [...] ENCOUNTER FOR DISABILITY DETERMINATION 09/15/2016 AMI CALLAHAN EDUCATIONAL DIAGNOSTICIAN Ot F32.9 MAJOR DEPRESSIVE DISORDER, SINGLE EPISOD 09/15/2016 AMI CALLAHAN EDUCATIONAL DIAGNOSTICIAN Ot F41.9 ANXIETY DISORDER, UNSPECIFIED 09/15/2016 AMI CALLAHAN EDUCATIONAL DIAGNOSTICIAN Ot J18.9 PNEUMONIA, UNSPECIFIED ORGANISM 09/15/2016 AMI CALLAHAN EDUCATIONAL DIAGNOSTICIAN Ot R45.851 SUICIDAL IDEATIONS 09/16/2016 AMI CALLAHAN EDUCATIONAL DIAGNOSTICIAN Ot F32.9 MAJOR DEPRESSIVE DISORDER, SINGLE EPISOD 09/16/2016 AMI CALLAHAN EDUCATIONAL DIAGNOSTICIAN Ot F41.9 ANXIETY DISORDER, UNSPECIFIED 09/16/2016 AMI CALLAHAN EDUCATIONAL DIAGNOSTICIAN Ot J18.9 PNEUMONIA, UNSPECIFIED ORGANISM 09/16/2016 AMI CALLAHAN EDUCATIONAL DIAGNOSTICIAN Ot R45.851 SUICIDAL IDEATIONS 10/24/2016 CELI FRANK, NIRANJAN Stover Ot V72.84 EXAM PRE-OPERATIVE NOS 10/24/2016 SCARLETT WARD MD ([facility]) Ot Z02.71 ENCOUNTER FOR DISABILITY DETERMINATION 12/30/2016 AMI CALLAHAN EDUCATIONAL DIAGNOSTICIAN Ot F32.9 MAJOR DEPRESSIVE DISORDER, SINGLE EPISOD 12/30/2016 AMI CALLAHAN EDUCATIONAL DIAGNOSTICIAN Ot F41.9 ANXIETY DISORDER, UNSPECIFIED 12/30/2016 CALLAHANAMI WAGNER EDUCATIONAL DIAGNOSTICIAN Ot J18.9 PNEUMONIA, UNSPECIFIED ORGANISM 12/30/2016 AMI CALLAHAN EDUCATIONAL DIAGNOSTICIAN Ot R45.851 SUICIDAL IDEATIONS 02/06/2017 AMI CALLAHAN EDUCATIONAL DIAGNOSTICIAN Ot F32.9 MAJOR DEPRESSIVE DISORDER, SINGLE EPISOD 02/06/2017 CALLAHANAMI WAGNER EDUCATIONAL DIAGNOSTICIAN Ot F41.9 ANXIETY DISORDER, UNSPECIFIED 02/06/2017 CALLAHANAMI WAGNER EDUCATIONAL DIAGNOSTICIAN Ot J18.9 PNEUMONIA, UNSPECIFIED ORGANISM 02/06/2017 AMI CALLAHAN EDUCATIONAL DIAGNOSTICIAN Ot R45.851 SUICIDAL IDEATIONS 12/07/2017 CELI FRANK, [...] PAIN 12/07/2017 BECCA BURK DO Ot Z79.51 [facility] (CURRENT) USE OF 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 12/07/2017 BECCA [...] 12/09/2017 WM ZURITA BECCA Chen Ot Z79.51 RN PERITONEAL DIALYSIS (CURRENT) USE OF 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 12/09/2017 BECCA BURK DO Ot Z87.19 PERSONAL HISTORY OF OTHER DISEASES OF TH 12/09/2017 BECCA BURK DO Ot Z88.0 ALLERGY STATUS TO PENICILLIN 12/09/2017 BECCA BURK DO Ot Z88.5 ALLERGY STATUS TO NARCOTIC AGENT STATUS 12/09/2017 BECAC BURK DO Ot Z91.012 ALLERGY TO EGGS [...] SMO 05/13/2018 AMI CALLAHAN APRN Ot Z79.51 [facility] (CURRENT) USE OF 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 05/13/2018 AMI CALLAHAN APRN Ot Z79.52 RN PERITONEAL DIALYSIS (CURRENT) USE OF SYSTEMIC STER 05/13/2018 AMI [...] SMO 05/17/2018 AMI CALLAHAN APRN Ot Z79.51 RN PERITONEAL DIALYSIS (CURRENT) USE OF 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 05/17/2018 AMI CALLAHAN APRN Ot Z79.52 RN PERITONEAL DIALYSIS (CURRENT) USE OF SYSTEMIC STER 05/17/2018 AMI [...] EXAM PRE-OPERATIVE NOS 05/26/2018 SCARLETT WARD MD ([facility]) Ot Z02.71 ENCOUNTER FOR DISABILITY DETERMINATION 06/08/2018 GILAROSARIO Hernandez CONGRESSIONAL ASSISTANT Ot F12.10 CANNABIS ABUSE, UNCOMPLICATED 06/08/2018 GILA, ROSARIO CONGRESSIONAL ASSISTANT Ot F17.210 NICOTINE DEPENDENCE, CIGARETTES, UNCOMPL 06/08/2018 GILA, ROSARIO CONGRESSIONAL ASSISTANT Ot F32.9 MAJOR DEPRESSIVE DISORDER, SINGLE EPISOD 06/08/2018 GILA, ROSARIO CONGRESSIONAL ASSISTANT Ot I10 ESSENTIAL (PRIMARY) HYPERTENSION 06/08/2018 GILA, ROSARIO CONGRESSIONAL ASSISTANT Ot J44.9 CHRONIC OBSTRUCTIVE PULMONARY DISEASE, U 06/08/2018 GILA, ROSARIO CONGRESSIONAL ASSISTANT Ot K21.9 GASTRO-ESOPHAGEAL REFLUX DISEASE WITHOUT 06/08/2018 GILA, ROSARIO CONGRESSIONAL ASSISTANT Ot R07.81 PLEURODYNIA 06/08/2018 GILA, ROSARIO CONGRESSIONAL ASSISTANT Ot S22.42XD MULTIPLE FX OF RIBS, LEFT SIDE, SUBS FOR 06/08/2018 GILA, ROSARIO CONGRESSIONAL ASSISTANT Ot X58.XXXA EXPOSURE TO OTHER SPECIFIED FACTORS, INI 06/08/2018 GILA ROSARIO CONGRESSIONAL ASSISTANT Ot Z79.51 [facility] (CURRENT) USE OF 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 06/08/2018 GILA ROSARIO CONGRESSIONAL ASSISTANT Ot Z79.52 [facility] (CURRENT) USE OF SYSTEMIC STER 06/08/2018 GILA ROSARIO CONGRESSIONAL ASSISTANT Ot Z87.19 PERSONAL HISTORY OF OTHER DISEASES OF TH 06/08/2018 GILA, ROSARIO CONGRESSIONAL ASSISTANT Ot Z88.0 ALLERGY STATUS TO PENICILLIN 06/08/2018 GILA, ROSARIO CONGRESSIONAL ASSISTANT Ot Z88.5 ALLERGY STATUS TO NARCOTIC AGENT STATUS 06/10/2018 GILA ROSARIO CONGRESSIONAL ASSISTANT Ot F12.10 CANNABIS ABUSE, UNCOMPLICATED 06/10/2018 GILA, ROSARIO CONGRESSIONAL ASSISTANT Ot F17.210 NICOTINE DEPENDENCE, CIGARETTES, UNCOMPL 06/10/2018 GILA, ROSARIO CONGRESSIONAL ASSISTANT Ot F32.9 MAJOR DEPRESSIVE DISORDER, SINGLE EPISOD 06/10/2018 GILA, ROSARIO CONGRESSIONAL ASSISTANT Ot I10 ESSENTIAL (PRIMARY) HYPERTENSION 06/10/2018 GILA, ROSARIO CONGRESSIONAL ASSISTANT Ot J44.9 CHRONIC OBSTRUCTIVE PULMONARY DISEASE, U 06/10/2018 GILA, ROSARIO CONGRESSIONAL ASSISTANT Ot K21.9 GASTRO-ESOPHAGEAL REFLUX DISEASE WITHOUT 06/10/2018 GILA, ROSARIO CONGRESSIONAL ASSISTANT Ot R07.81 PLEURODYNIA 06/10/2018 GILA, ROSARIO CONGRESSIONAL ASSISTANT Ot S22.42XD MULTIPLE FX OF RIBS, LEFT SIDE, SUBS FOR 06/10/2018 GILA ROSARIO VAZQUEZ Ot X58.XXXA EXPOSURE TO OTHER SPECIFIED FACTORS, INI 06/10/2018 ROSARIO URIOSTEGUI Ot Z79.51 RN PERITONEAL DIALYSIS (CURRENT) USE OF 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 06/10/2018 ROSARIO URIOSTEGUI Ot Z79.52 RN PERITONEAL DIALYSIS (CURRENT) USE OF SYSTEMIC STER 06/10/2018 ROSARIO URIOSTEGUI Ot Z87.19 PERSONAL HISTORY OF OTHER DISEASES OF TH 06/10/2018 ROSARIO URIOSTEGUI Ot Z88.0 ALLERGY STATUS TO PENICILLIN 06/10/2018 ROSARIO URIOSTEGUI Ot Z88.5 ALLERGY STATUS TO NARCOTIC AGENT STATUS 07/07/2018 DEVANG HOLLOWAY MD Ot F12.10 CANNABIS ABUSE, UNCOMPLICATED 07/07/2018 DEVANG HOLLOWAY MD Ot F17.210 NICOTINE DEPENDENCE, CIGARETTES, UNCOMPL 07/07/2018 DEVANG HOLLOWAY MD Ot F32.9 MAJOR DEPRESSIVE DISORDER, SINGLE EPISOD 07/07/2018 DEVANG HOLLOWAY MD Ot I10 ESSENTIAL (PRIMARY) HYPERTENSION 07/07/2018 DEVANG HOLLOWAY MD, Ot J44.9 CHRONIC OBSTRUCTIVE PULMONARY DISEASE, U 07/07/2018 DEVANG HOLLOWAY MD Ot K21.9 GASTRO-ESOPHAGEAL REFLUX DISEASE WITHOUT 07/07/2018 DEVANG HOLLOWAY MD Ot R07.81 PLEURODYNIA 07/07/2018 DEVANG HOLLOWAY MD Ot S22.42XA MULTIPLE FRACTURES OF RIBS, LEFT SIDE, I 07/07/2018 DEVANG HOLLOWAY MD Ot X50.1XXA OVEREXERTION FROM PROLONGED STATIC OR AW 07/07/2018 DEVANG HOLLOWAY MD Ot Z79.51 RN PERITONEAL DIALYSIS (CURRENT) USE OF 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 07/07/2018 DEVANG HOLLOWAY MD Ot Z79.52 RN PERITONEAL DIALYSIS (CURRENT) USE OF SYSTEMIC STER 07/07/2018 DEVANG HOLLOWAY MD Ot Z87.19 PERSONAL HISTORY OF OTHER DISEASES OF 07/07/2018 DEVANG HOLLOWAY MD Ot Z88.0 ALLERGY STATUS TO PENICILLIN 07/07/2018 DEVANG HOLLOWAY MD Ot Z88.5 ALLERGY STATUS TO NARCOTIC AGENT STATUS 07/09/2018 DEVANG HOLLOWAY MD Ot F12.10 CANNABIS ABUSE, UNCOMPLICATED 07/09/2018 DEVANG HOLLOWAY MD Ot F17.210 NICOTINE DEPENDENCE, CIGARETTES, UNCOMPL 07/09/2018 DEVANG HOLLOWAY MD Ot F32.9 MAJOR DEPRESSIVE DISORDER, SINGLE EPISOD 07/09/2018 DEVANG HOLLOWAY MD Ot I10 ESSENTIAL (PRIMARY) HYPERTENSION 07/09/2018 DEVANG HOLLOWAY MD Ot J44.9 CHRONIC OBSTRUCTIVE PULMONARY DISEASE, U 07/09/2018 DEVANG HOLLOWAY MD Ot K21.9 GASTRO-ESOPHAGEAL REFLUX DISEASE WITHOUT 07/09/2018 DEVANG HOLLOWAY MD Ot R07.81 PLEURODYNIA 07/09/2018 DEVANG HOLLOWAY MD Ot S22.42XA MULTIPLE FRACTURES OF RIBS, LEFT SIDE, I 07/09/2018 DEVANG HOLLOWAY MD Ot X50.1XXA OVEREXERTION FROM PROLONGED STATIC OR AW 07/09/2018 DEVANG HOLLOWAY MD Ot Z79.51 RN PERITONEAL DIALYSIS (CURRENT) USE OF 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 07/09/2018 DEVANG HOLLOWAY MD Ot Z79.52 RN PERITONEAL DIALYSIS (CURRENT) USE OF SYSTEMIC STER 07/09/2018 DEVANG HOLLOWAY MD Ot Z87.19 PERSONAL HISTORY OF OTHER DISEASES OF TH 07/09/2018 DEVANG HOLLOWAY MD Ot Z88.0 ALLERGY STATUS TO PENICILLIN 07/09/2018 DEVANG HOLLOWAY MD Ot Z88.5 ALLERGY STATUS TO NARCOTIC AGENT STATUS 07/13/2018 DEVANG HOLLOWAY MD Ot F12.10 CANNABIS ABUSE, UNCOMPLICATED 07/13/2018 DEVANG HOLLOWAY MD Ot F17.210 NICOTINE DEPENDENCE, CIGARETTES, UNCOMPL 07/13/2018 DEVANG HOLLOWAY MD Ot F32.9 MAJOR DEPRESSIVE DISORDER, SINGLE EPISOD 07/13/2018 DEVANG HOLLOWAY MD Ot I10 ESSENTIAL (PRIMARY) HYPERTENSION 07/13/2018 DEVANG HOLLOWAY MD Ot J44.9 CHRONIC OBSTRUCTIVE PULMONARY DISEASE, U 07/13/2018 DEVANG HOLLOWAY MD Ot K21.9 GASTRO-ESOPHAGEAL REFLUX DISEASE WITHOUT 07/13/2018 DEVANG HOLLOWAY MD Ot R07.81 PLEURODYNIA 07/13/2018 DEVANG HOLLOWAY MD Ot S22.42XA MULTIPLE FRACTURES OF RIBS, LEFT SIDE, I 07/13/2018 DEVANG HOLLOWAY MD Ot X50.1XXA OVEREXERTION FROM PROLONGED STATIC OR AW 07/13/2018 DEVANG HOLLOWAY MD, Ot Z79.51 RN PERITONEAL DIALYSIS (CURRENT) USE OF 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 07/13/2018 DEVANG HOLLOWAY MD, Ot Z79.52 RN PERITONEAL DIALYSIS (CURRENT) USE OF SYSTEMIC STER 07/13/2018 DEVANG HOLLOWAY MD, Ot Z87.19 PERSONAL HISTORY OF OTHER DISEASES OF TH 07/13/2018 DEVANG HOLLOWAY MD, Ot Z88.0 ALLERGY STATUS TO PENICILLIN 07/13/2018 DEVANG HOLLOWAY MD, Ot Z88.5 ALLERGY STATUS TO NARCOTIC AGENT STATUS 07/13/2018 CELI FRANK, NIRANJAN Stover Ot V72.84 EXAM PRE-OPERATIVE NOS 07/13/2018 ED FRANK, SCARLETT Sandoval ([facility]) Ot Z02.71 ENCOUNTER FOR DISABILITY DETERMINATION 07/13/2018 PETRA GARZON MD Ot R56.9 UNSPECIFIED CONVULSIONS 07/13/2018 PETRA GARZON MD Ot 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, UNSPECIFIED 08/17/2018 AMI CALLAHAN APRN Ot F32.9 MAJOR DEPRESSIVE DISORDER, SINGLE EPISOD 08/17/2018 AMI CALLAHAN APRN Ot I10 ESSENTIAL (PRIMARY) HYPERTENSION 08/17/2018 AMI CALLAHAN APRN Ot J44.9 CHRONIC OBSTRUCTIVE PULMONARY DISEASE, U 08/17/2018 AMI CALLAHAN APRN Ot K21.9 GASTRO-ESOPHAGEAL REFLUX DISEASE WITHOUT 08/17/2018 AMI CALLAHAN APRN Ot R07.89 OTHER CHEST PAIN 08/17/2018 AMI CALLAHAN APRN Ot S22.32XA FRACTURE OF ONE RIB, LEFT SIDE, INIT FOR 08/17/2018 AMI CALLAHAN APRN Ot X58.XXXA EXPOSURE TO OTHER SPECIFIED FACTORS, INI 08/17/2018 AMI CALLAHAN APRN Ot Z77.22 CNTCT W AND EXPSR TO ENVIRON TOBACCO SMO 08/17/2018 AMI CALLAHAN APRN Ot Z79.51 RN PERITONEAL DIALYSIS (CURRENT) USE OF 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 08/17/2018 AMI CALLAHAN APRN Ot Z79.52 RN PERITONEAL DIALYSIS (CURRENT) USE OF SYSTEMIC STER 08/17/2018 AMI CALLAHAN APRN Ot Z87.19 PERSONAL HISTORY OF OTHER DISEASES OF TH 08/17/2018 AMI CALLAHAN APRN Ot Z88.0 ALLERGY STATUS TO PENICILLIN 08/17/2018 AMI CALLAHAN APRN Ot Z88.5 ALLERGY STATUS TO NARCOTIC AGENT STATUS 09/16/2018 AMI CALLAHAN APRN Ot F32.9 MAJOR DEPRESSIVE DISORDER, SINGLE EPISOD 09/16/2018 AMI CALLAHAN APRN Ot I10 ESSENTIAL (PRIMARY) HYPERTENSION 09/16/2018 AMI CALLAHAN APRN Ot J44.9 CHRONIC OBSTRUCTIVE PULMONARY DISEASE, U 09/16/2018 AMI CALLAHAN APRN Ot K21.9 GASTRO-ESOPHAGEAL REFLUX DISEASE WITHOUT 09/16/2018 AMI CALLAHAN APRN Ot R10.9 UNSPECIFIED ABDOMINAL PAIN 09/16/2018 AMI CALLAHAN APRN Ot S22.32XA FRACTURE OF ONE RIB, LEFT SIDE, INIT FOR 09/16/2018 AMI CALLAHAN APRN Ot X58.XXXA EXPOSURE TO OTHER SPECIFIED FACTORS, INI 09/16/2018 AMI CALLAHAN APRN Ot Z77.22 CNTCT W AND EXPSR TO ENVIRON TOBACCO SMO 09/16/2018 AMI CALLAHAN APRN Ot Z79.51 RN PERITONEAL DIALYSIS (CURRENT) USE OF 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 09/16/2018 AMI CALLAHAN APRN Ot Z79.52 [facility] (CURRENT) USE OF SYSTEMIC STER 09/16/2018 AMI CALLAHAN APRN Ot Z87.19 PERSONAL HISTORY OF OTHER DISEASES OF TH 09/16/2018 AMI CALLAHAN APRN Ot Z88.0 ALLERGY STATUS TO PENICILLIN 09/16/2018 AMI CALLAHAN APRN Ot Z88.5 ALLERGY STATUS TO NARCOTIC AGENT STATUS 09/16/2018 AMI CALLAHAN APRN Ot F32.9 MAJOR DEPRESSIVE DISORDER, SINGLE EPISOD 09/16/2018 AMI CALLAHAN APRN Ot I10 ESSENTIAL (PRIMARY) HYPERTENSION 09/16/2018 AMI CALLAHAN APRN Ot J44.9 CHRONIC OBSTRUCTIVE PULMONARY DISEASE, U 09/16/2018 AMI CALLAHAN APRN Ot K21.9 GASTRO-ESOPHAGEAL REFLUX DISEASE WITHOUT 09/16/2018 AMI CALLAHAN APRN Ot R10.9 UNSPECIFIED ABDOMINAL PAIN 09/16/2018 AMI CALLAHAN APRN Ot S22.32XA FRACTURE OF ONE RIB, LEFT SIDE, INIT FOR 09/16/2018 AMI CALLAHAN EDUCATIONAL DIAGNOSTICIAN Ot X58.XXXA EXPOSURE TO OTHER SPECIFIED FACTORS, INI 09/16/2018 AMI CALLAHAN APRN Ot Z77.22 CNTCT W AND EXPSR TO ENVIRON TOBACCO SMO 09/16/2018 AMI CALLAHAN APRN Ot Z79.51 [facility] (CURRENT) USE OF 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 09/16/2018 AMI CALLAHAN APRN Ot Z79.52 [facility] (CURRENT) USE OF SYSTEMIC STER 09/16/2018 AMI CALLAHAN APRN Ot Z87.19 PERSONAL HISTORY OF OTHER DISEASES OF TH 09/16/2018 AMI CALLAHAN APRN Ot Z88.0 ALLERGY STATUS TO PENICILLIN 09/16/2018 AMI CALLAHAN APRN Ot Z88.5 ALLERGY STATUS TO NARCOTIC AGENT STATUS 09/17/2018 PETRA GARZON MD Ot R56.9 UNSPECIFIED CONVULSIONS 09/17/2018 PETRA GARZON MD Ot 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, UNSPECIFIED Procedures Code Description [place] [address] URINE DRUG SCREEN (IN-HOUSE ) 08/19/2012 24858 URINE DRUG SCREEN (IN-HOUSE ) 12/10/2012 58162 ROUTINE VENIPUNCTURE 04/25/2013 80541 URINE DRUG SCREEN (IN-HOUSE ) 04/25/2013 72185 CMP 04/25/2013 [id number] GFR CALC (RESULT ONLY) 04/25/2013 30131 ROUTINE VENIPUNCTURE 05/27/2013 26710 ROUTINE VENIPUNCTURE 05/27/2013 59339 CBC 05/27/2013 60943 CBC 05/27/2013 Niranjan Pérez 05/31/2013 Niranjan Pérez 06/20/2013 13159 [employer] 04/03/2014 24359 [employer] 07/17/2014 80766 ROUTINE VENIPUNCTURE 07/20/2014 [id number] GFR CALC (RESULT ONLY) 07/20/2014 15039 CMP 07/20/2014 Results Test Result Range Complete [...] Status Pt. Type Provider Facility Loc./Unit Complaint [id number] 07/20/2014 10:28:00 07/20/2014 23:59:59 CLS Outpatient PETRA GARZON MD [id number] 04/17/2014 12:30:00 04/17/2014 23:59:59 CLS Outpatient NILA KERN EDILSON R [id number] 03/27/2014 15:44:00 03/27/2014 23:59:59 CLS Outpatient PETRA GARZON MD [id number] 09/19/2013 16:35:00 09/19/2013 23:59:59 CLS Outpatient PETRA GARZON MD [id number] 08/23/2013 08:26:00 08/23/2013 23:59:59 CLS Outpatient NIRANJAN ALATORRE MD [id number] 06/20/2013 14:24:00 06/20/2013 23:59:59 CLS Outpatient RACHEL GRACIA DO [id number] 05/27/2013 08:53:00 05/27/2013 23:59:59 CLS Outpatient PETRA GARZON MD [id number] 04/25/2013 13:26:00 04/25/2013 23:59:59 CLS Outpatient PETRA GARZON MD [id number] 09/03/2012 10:45:00 09/03/2012 23:59:59 CLS Outpatient NASH LIRIANO DDS [id number] 08/19/2012 10:57:00 08/19/2012 23:59:59 CLS Outpatient [id number] 03/23/2012 15:23:00 03/23/2012 23:59:59 CLS Outpatient [id number] 03/23/2012 15:23:00 03/23/2012 23:59:59 CLS Outpatient PETRA GARZON MD [id number] 12/10/2012 13:42:00 Document Registration [id number] 07/07/2018 14:35:00 07/07/2018 16:26:00 DIS Emergency DEVANG HOLLOWAY MD [facility] ER RIB PAIN [id number] 06/08/2018 15:56:00 06/08/2018 17:46:00 DIS Emergency ROSARIO URIOSTEGUI CONGRESSIONAL ASSISTANT [facility] ER L RIB PAIN [id number] 05/27/2018 10:34:00 05/27/2018 23:59:59 CLS Outpatient PETRA GARZON MD [facility] RAD SEIZURES [id number] 05/13/2018 11:27:00 05/13/2018 13:01:00 DIS Outpatient AMI CALLAHAN EDUCATIONAL DIAGNOSTICIAN [facility] ER L SIDE PAIN [id number] 12/07/2017 09:26:00 12/07/2017 10:46:00 DIS Emergency BECCA BURK DO [facility] ER CHEST PAIN [id number] 09/15/2016 10:05:00 09/15/2016 13:10:00 DIS Emergency MAI CALLAHAN EDUCATIONAL DIAGNOSTICIAN [facility] ER SUICIDAL [id number] 01/17/2016 11:07:00 01/17/2016 23:59:59 CLS Outpatient SCARLETT WARD MD (DDU) [facility] RAD DDU [id number] 12/22/2013 12:03:00 12/22/2013 14:06:00 DIS Emergency BECCA BURK DO [facility] ER CHEST PAIN [id number] 09/15/2013 14:04:00 09/15/2013 14:55:00 DIS Emergency AMI CALLAHAN EDUCATIONAL DIAGNOSTICIAN [facility] ER ADRIANA HAND PAIN [id number] 07/04/2013 07:56:00 07/04/2013 11:12:00 DIS Outpatient ALATORRE NIRANJAN FRANK [facility] SDC RECTAL BLEEDING [id number] 06/29/2013 07:34:00 06/29/2013 23:59:59 CLS Outpatient NIRANJAN ALATORRE MD [facility] PREOP RECTAL BLEEDING [id number] 08/14/2011 10:29:00 Document Registration
--- NOTE | 2018-10-16 18:55 | ED Chest Pain ---
General Chief Complaint: Chest Wall/Rib Pain Stated Complaint: INJ LEFT SIDE WHEN PICKING UP DOG Nursing Triage Note: COMPLAINS OF LEFT SIDED RIB PAIN AFTER PICKING UP HIS 100#DOG. STATES HE FELT A POP. ALSO DX WITH PNEUMONIA THIS WEEK AND PUT ON ABX. DOES NOT KNOW THE NAME OF THE ABX. Nursing Sepsis Screen: No Definite Risk Source: patient Exam Limitations: no limitations History of Present Illness Date Seen by Provider: Oct 16, 2018 Time Seen by Provider: 18:50 Allergies and Home Medications Allergies Coded Allergies: Penicillins (Unverified Allergy, Mild, 11/07/09) codeine (Unverified Allergy, Mild, 11/07/09) egg (Verified Allergy, Unknown, 09/15/16) Home Medications Albuterol 8.5 Gm Hfa.aer.ad, 2 PUFF IH QID PRN for SHORTNESS OF BREATH, ( Reported) NEEDED FOR SHORTNESS OF BREATH Beclomethasone Dipropionate 7.3 Gm Aer.w.adap, 2 PUFF IH BID, (Reported) 40 MCG Hydrocodone Bit/Acetaminophen 1 Tab Tab, 1 EACH PO Q4-6HR PRN for PAIN-MODERATE Prescribed by: FIORDALIZA BARTH on 10/16/182031 Past Agqpcyu-Qusawv-Jihmlh Hx Patient Social History Drug of Choice: marijuana Type Used: Cigarettes 2nd Hand Smoke Exposure: Yes Recent Foreign Travel: No Contact w/Someone Who Travel: No Recent Infectious Disease Expo: No Recent Hopitalizations: No Past Medical History Surgeries: Yes Orthopedic Respiratory: Yes Asthma, COPD Cardiac: Yes Hypertension Neurological: No Genitourinary: No Gastrointestinal: Yes Gastroesophageal Reflux, Hemorrhoids Musculoskeletal: Yes (RIB FX'S) Chronic Back Pain Endocrine: No HEENT: No Cancer: No Psychosocial: Yes (MOOD SWINGS) Sleep Difficulties, Depression Integumentary: No Blood Disorders: No Physical Exam Vital Signs Vital Signs - First Documented 10/16/18 18:32 Temp 98.1 Pulse 95 Resp 16 B/P (MAP) 151/87 (108) Pulse Ox 95 O2 Delivery Room Air Capillary Refill : Less Than 3 Seconds Height, Weight, BMI Height: 6'4.00" Weight: 280lbs. 0oz. 127.388974fu; 26.78 BMI Method:Stated Progress/Results/Core Measures Results/Orders My Orders Orders - FIORDALIZA BARTH Ribs/Unilateral With Chest (10/16/18 18:45) Ketorolac Injection (Toradol Injection) (10/16/18 19:00) Medications Given in ED Current Medications Medications Dose Ordered Sig/Adonay Route Start Time Stop Time Status Last Admin Dose Admin Ketorolac Tromethamine 60 mg ONCE ONCE IM 10/16/18 19:00 10/16/18 19:01 DC 10/16/18 19:10 60 MG Vital Signs/I&O 10/16/18 18:32 Temp 98.1 Pulse 95 Resp 16 B/P (MAP) 151/87 (108) Pulse Ox 95 O2 Delivery Room Air Blood Pressure Mean: 108 Departure Impression Primary Impression: Pneumonia Additional Impression: Rib fractures Disposition: HOME, SELF-CARE Condition: Stable/Unchanged Departure-Patient Inst. Decision time for Depature: 20:31 Referrals: PETRA GARZON MD (PCP/Family) Primary Care Physician Patient Instructions: Community-Acquired Pneumonia in Adults, Rib Fracture (DC) Add. Discharge Instructions: Take medications as directed. Use the incentive spirometer as instructed. Continue your antibiotic as previously prescribed. Follow-up with your primary care provider within 1 week for recheck. Return back to the emergency room for worsening symptoms or concerns as needed. All discharge instructions reviewed with patient and/or family. Voiced understanding. Scripts Hydrocodone Bit/Acetaminophen (Hydrocodone/Acetaminophen 5/325mg Tablet) 1 Tab Tab 1 EACH PO Q4-6HR PRN for PAIN-MODERATE MDD 10, #14 TAB Prov: FIORDALIZA BARTH 10/16/18 FIORDALIZA BARTH Oct 16, 2018 18:55
[2018-10-16] MEDS ORDERED: KETOROLAC 60 MG/2 ML VIAL IM ONE (19:00)
[2018-10-16] MEDS ORDERED: ACHD5005 PO (20:32)
[2018-10-16 20:45] VITALS: BP 140/87
--- NOTE | 2018-10-16 21:58 | Diagnostic Imaging Report ---
EXAMINATION: Chest and left ribs at 7:11 PM INDICATION: Rib pain The heart size is within normal limits and stable when compared to 07/07/2018. The previous exam did note mildly displaced fractures involving the lateral aspects of left seventh and eighth ribs. There has been further healing of those fractures in the interval since the prior exam. There is also a healing slightly displaced fracture of the lateral aspect of the left ninth rib. There is no acute displaced rib fracture identified. However, in the interval since the previous exam mild left lower lobe atelectasis/infiltrate has developed. There is no sign of a pneumothorax on the left. The right lung remains generally clear. The mediastinum is not widened. The other osseous structures are intact. IMPRESSION: 1. There are healing slightly displaced fractures of the left seventh, eighth, and ninth ribs. There is no acute displaced rib fracture identified. 2. There is no sign of a pneumothorax on the left but mild atelectasis/pneumonia has developed in the left lung base since the prior study. 3. These results were discussed with HARRY Alberto. Dictated by: Dictated on workstation # [id number]
== END 2018-10-16 20:46 | disposition home or self-care (01) ==
LOC: EDUNIT# 18:26 → ER 18:27
DX: S22.42XA Multiple fractures of ribs, left side, initial encounter for closed fracture (principal); J18.9 Pneumonia, unspecified organism; J44.9 Chronic obstructive pulmonary disease, unspecified; I10 Essential (primary) hypertension; K21.9 Gastro-esophageal reflux disease without esophagitis; F32.9 Major depressive disorder, single episode, unspecified; Z88.0 Allergy status to penicillin; Z88.5 Allergy status to narcotic agent; Z79.51 Long term (current) use of inhaled steroids; Z77.22 Contact with and (suspected) exposure to environmental tobacco smoke (acute) (chronic); X50.0XXA Overexertion from strenuous movement or load, initial encounter
CPT/HCPCS: 71101

== ENCOUNTER 2018-11-23 08:16 | Emergency (ER) | payer OTHER ==
[~2018-11-23] VITALS: Ht 193 cm; Wt 127.0 kg
[2018-11-23 08:45] LABS: BASOPHILS # (AUTO) 0.1 10^3/uL (0.0-0.1); BASOPHILS % (AUTO) 1 % (0-10); EOSINOPHILS # (AUTO) 0.8 10^3/uL (0.0-0.3); EOSINOPHILS % (AUTO) 6 % (0-10); HEMATOCRIT 44 % (40-54); HEMOGLOBIN 14.7 G/DL (13.3-17.7); LYMPHOCYTES # (AUTO) 1.7 X 10^3 (1.0-4.0); LYMPHOCYTES % (AUTO) 13 % (12-44); MEAN CORPUSCULAR HEMOGLOBIN 29 PG (25-34); MEAN CORPUSCULAR HGB CONC 34 G/DL (32-36); MEAN CORPUSCULAR VOLUME 86 FL (80-99); MEAN PLATELET VOLUME 9.7 FL (7.4-10.4); MONOCYTES # (AUTO) 1.4 X 10^3 (0.0-1.0); MONOCYTES % (AUTO) 10 % (0-12); NEUTROPHILS # (AUTO) 9.7 X 10^3 (1.8-7.8); NEUTROPHILS % (AUTO) 71 % (42-75); PLATELET COUNT 307 10^3/uL (130-400); RED CELL DISTRIBUTION WIDTH 13.8 % (10.0-14.5); WHITE BLOOD COUNT 13.7 10^3/uL (4.3-11.0)
[2018-11-23] MEDS ORDERED: KETOROLAC 30 MG/ML VIAL IVP STA (08:54)
[2018-11-23] MEDS ORDERED: fentaNYL INJECTION 100 MCG/2 ML AMP IVP STA (08:54)
[2018-11-23] MEDS ORDERED: KETOROLAC 30 MG/ML VIAL ONE (08:55)
[2018-11-23 08:56] LABS: ALANINE AMINOTRANSFERASE 24 U/L (0-55); ALBUMIN 4.1 GM/DL (3.2-4.5); ALKALINE PHOSPHATASE 101 U/L (40-136); BILIRUBIN,TOTAL 0.2 MG/DL (0.1-1.0); BUN/CREATININE RATIO 14; CALCIUM 9.5 MG/DL (8.5-10.1); CARBON DIOXIDE 25 MMOL/L (21-32); CHLORIDE 104 MMOL/L (98-107); CREATININE SERUM 1.02 MG/DL (0.60-1.30); GFR ESTIMATED > 60; GLUCOSE 122 MG/DL (70-105); POTASSIUM 4.2 MMOL/L (3.6-5.0); SODIUM 140 MMOL/L (135-145); TOTAL PROTEIN 6.8 GM/DL (6.4-8.2)
--- NOTE | 2018-11-23 09:45 | NUR ---
DR IN WITH PT AT THIS TIME.
--- NOTE | 2018-11-23 10:05 | Diagnostic Imaging Report ---
INDICATION: Awoke earlier in the day with right lower rib pain. TECHNIQUE: 3 views right ribs, 9:06 AM. CORRELATION STUDY: 10/16/2018 FINDINGS: There is no acute displaced right-sided rib fracture deformity. The right lung field is relatively clear. No pneumothorax or significant effusion. IMPRESSION: 1. Negative for acute displaced right rib fracture. Dictated by: Dictated on workstation # [id number]
--- NOTE | 2018-11-23 10:08 | Diagnostic Imaging Report ---
INDICATION: Waking up with sharp pain to right lower ribs.. TECHNIQUE: Two view chest 9:04 AM CORRELATION STUDY: 07/07/2018 FINDINGS: The heart size, mediastinal configuration and pulmonary vasculature are within normal limits. Lung ochoa are hyperinflated with changes of COPD. There is presence of multiple left-sided rib fracture deformities appearing to be subcutaneous incompletely healed with some callus formation present. Associated pleural thickening along left lateral chest wall has developed, changed from prior study. Small left pleural effusion. Right hemithorax appearing unremarkable. IMPRESSION: 1. Incompletely healed left lower lateral rib fracture deformities with associated pleural thickening and/or effusion. Minimal atelectasis left lung base. 2. No definitive acute abnormality about the right hemithorax. Dictated by: Dictated on workstation # [id number]
--- NOTE | 2018-11-23 10:39 | ED General ---
General Chief Complaint: Chest Wall Stated Complaint: ABD PAIN Nursing Triage Note: ARRIVED VIA EMS FROM HOME. STATES HE WOKE UP THIS AM WITH SEVERE RIGHT UPPER RIB PAIN. DENIES INJURY. Nursing Sepsis Screen: No Definite Risk Source of Information: Patient Exam Limitations: No Limitations History of Present Illness Date Seen by Provider: Nov 23, 2018 Time Seen by Provider: 09:50 Initial Comments Here with report of acute onset right-sided rib pain. Woke him up about 4 AM. I had anything like this before. Last ate at 5 PM last night. Denies any recent injury. Does have history of left lower rib fractures. Denies nausea or vomiting. Denies fever or chills. Timing/Duration: 4-6 Hours Severity: Moderate Associated Systoms: Chest Pain; No Cough, No Fever/Chills, No Nausea/Vomiting, No Shortness of Air, No Weakness Allergies and Home Medications Allergies Coded Allergies: Penicillins (Unverified Allergy, Mild, 11/07/09) codeine (Unverified Allergy, Mild, 11/07/09) egg (Verified Allergy, Unknown, 09/15/16) Home Medications Albuterol 8.5 Gm Hfa.aer.ad, 2 PUFF IH QID PRN for SHORTNESS OF BREATH, ( Reported) NEEDED FOR SHORTNESS OF BREATH Beclomethasone Dipropionate 7.3 Gm Aer.w.adap, 2 PUFF IH BID, (Reported) 40 MCG Hydrocodone Bit/Acetaminophen 1 Tab Tab, 1 EACH PO Q4-6HR PRN for PAIN-MODERATE Prescribed by: FIORDALIZA BARTH on 10/16/182031 Patient Home Medication List Home Medication List Reviewed: Yes Review of Systems Review of Systems Constitutional: see HPI; No chills, No fever EENTM: no symptoms reported Respiratory: no symptoms reported Cardiovascular: chest pain; No edema, No palpitations Gastrointestinal: abdominal pain (RUQ); No nausea, No vomiting Genitourinary: no symptoms reported Musculoskeletal: see HPI, joint pain, muscle pain Skin: no symptoms reported Psychiatric/Neurological: No Symptoms Reported Past Urezuun-Soxhhy-Aopjtx Hx Past Med/Social Hx: Reviewed Nursing Past Med/Soc Hx Patient Social History Alcohol Use: Denies Use Recreational Drug Use: No Drug of Choice: marijuana Smoking Status: Current Everyday Smoker Type Used: Cigarettes 2nd Hand Smoke Exposure: Yes Recent Foreign Travel: No Contact w/Someone Who Travel: No Recent Infectious Disease Expo: No Recent Hopitalizations: No Past Medical History Surgeries: Yes Orthopedic Respiratory: Yes Asthma, COPD Cardiac: Yes Hypertension Neurological: No Genitourinary: No Gastrointestinal: Yes Gastroesophageal Reflux, Hemorrhoids Musculoskeletal: Yes (RIB FX'S) Chronic Back Pain Endocrine: No HEENT: No Cancer: No Psychosocial: Yes (MOOD SWINGS) Sleep Difficulties, Depression Integumentary: No Blood Disorders: No Family Medical History Reviewed Nursing Family Hx Physical Exam Vital Signs Vital Signs - First Documented 11/23/18 08:29 Temp 98.0 Pulse 74 Resp 16 B/P (MAP) 101/80 (87) Pulse Ox 97 O2 Delivery Room Air Capillary Refill : Less Than 3 Seconds Height, Weight, BMI Height: 6'4.00" Weight: 280lbs. 0oz. 127.607425kq; 26.78 BMI Method:Stated General Appearance: WD/WN, Mild Distress HEENT: PERRL/EOMI, Pharynx Normal Neck: Non Tender, Supple Respiratory: Lungs Clear, Normal Breath Sounds, Other (point tender to the right low rib margin) Cardiovascular: Regular Rate, Rhythm, No Murmur Gastrointestinal: Non Tender, Soft Back: Normal Inspection, No CVA Tenderness, No Vertebral Tenderness Extremity: Normal Range of Motion, Non Tender Neurologic/Psychiatric: Alert, Oriented x3 Skin: Normal Color, Warm/Dry Progress/Results/Core Measures Suspected Sepsis Recent Fever Within 48 Hours: No Infection Criteria Present: None New/Unexplained Altered Menta: No Sepsis Screen: No Definite Risk SIRS Temperature:98.0 Pulse: 74 Respiratory Rate: 16 Laboratory Tests 11/23/18 08:25: White Blood Count 13.7H Blood Pressure 101 /80 Mean: 87 Laboratory Tests 11/23/18 08:25: Creatinine 1.02, Platelet Count 307, Total Bilirubin 0.2 Results/Orders Lab Results Laboratory Tests Test 11/23/18 08:25 11/23/18 08:27 Range/Units White Blood Count 13.7 H 4.3-11.0 10^3/uL Red Blood Count 5.06 4.35-5.85 10^6/uL Hemoglobin 14.7 13.3-17.7 G/DL Hematocrit 44 40-54 % Mean Corpuscular Volume 86 80-99 FL Mean Corpuscular Hemoglobin 29 25-34 PG Mean Corpuscular Hemoglobin Concent 34 32-36 G/DL Red Cell Distribution Width 13.8 10.0-14.5 % Platelet Count 307 130-400 10^3/uL Mean Platelet Volume 9.7 7.4-10.4 FL Neutrophils (%) (Auto) 71 42-75 % Lymphocytes (%) (Auto) 13 12-44 % Monocytes (%) (Auto) 10 0-12 % Eosinophils (%) (Auto) 6 0-10 % Basophils (%) (Auto) 1 0-10 % Neutrophils # (Auto) 9.7 H 1.8-7.8 X 10^3 Lymphocytes # (Auto) 1.7 1.0-4.0 X 10^3 Monocytes # (Auto) 1.4 H 0.0-1.0 X 10^3 Eosinophils # (Auto) 0.8 H 0.0-0.3 10^3/uL Basophils # (Auto) 0.1 0.0-0.1 10^3/uL Sodium Level 140 135-145 MMOL/L Potassium Level 4.2 3.6-5.0 MMOL/L Chloride Level 104 98-107 MMOL/L Carbon Dioxide Level 25 21-32 MMOL/L Anion Gap 11 5-14 MMOL/L Blood Urea Nitrogen 14 7-18 MG/DL Creatinine 1.02 0.60-1.30 MG/DL Estimat Glomerular Filtration Rate > 60 BUN/Creatinine Ratio 14 Glucose Level 122 H 70-105 MG/DL Calcium Level 9.5 8.5-10.1 MG/DL Corrected Calcium 9.4 8.5-10.1 MG/DL Total Bilirubin 0.2 0.1-1.0 MG/DL Aspartate Amino Transf (AST/SGOT) 15 5-34 U/L Alanine Aminotransferase (ALT/SGPT) 24 0-55 U/L Alkaline Phosphatase 101 40-136 U/L Total Protein 6.8 6.4-8.2 GM/DL Albumin 4.1 3.2-4.5 GM/DL My Orders Orders - YESENIA GOLDEN MD Ribs, Right 2-3 Views (11/23/18 08:34) Chest Pa/Lat (2 View) (11/23/18 08:34) Cbc With Automated Diff (11/23/18 08:34) Comprehensive Metabolic Panel (11/23/18 08:34) Fentanyl Injection (Sublimaze Injection (11/23/18 08:54) Ketorolac Injection (Toradol Injection) (11/23/18 08:54) Ketorolac Injection (Toradol Injection) (11/23/18 08:55) Us Gallbladder [id number] (11/23/18 09:45) Ekg Tracing (11/23/18 10:39) Troponin I (11/23/18 11:22) Hydrocodone/Apap 7.5/325 Tab (Lortab 7. (11/23/18 11:25) Vital Signs/I&O 11/23/18 08:29 Temp 98.0 Pulse 74 Resp 16 B/P (MAP) 101/80 (87) Pulse Ox 97 O2 Delivery Room Air Capillary Refill : Less Than 3 Seconds Blood Pressure Mean: 87 Progress Note : Progress Note Seen and evaluated. IV, labs, chest x-ray, EKG and Toradol 30 mg IV. Fentanyl 50 g IV ordered. Monitor patient. Gallbladder ultrasound ordered. 1120: No acute findings. Hydrocodone 7.5 ordered. Patient is point tender to the right flank in the area of the ribs. He is wondering if he pulled a muscle. He'll continue outpatient treatment with fwng-nai-srygglk meds. Discharged home with return precautions. Patient verbalize understanding instructions and agreement with plan. ECG Initial ECG Impression Date: Nov 23, 2018 Initial ECG Impression Time: 10:40 Initial ECG Rate: 66 Initial ECG Rhythm: Normal Sinus Comment Sinus rhythm with nonspecific intraventricular conduction delay. No evidence of ST elevation LA. Normal axis. Similar to previous of 12/07/17. Interpreted by me. Diagnostic Imaging Diagonstic Imaging: Xray Plain Films/CT/US/NM/MRI: chest Comments [facility] [place] [place] NAME: JANE RICK [facility] REC#: [id number] PT STATUS: REG ER : 1980 PHYSICIAN: YESENIA GOLDEN MD ADMIT DATE: 11/23/18/ER Draft Date of Exam:11/23/18 CHEST PA/LAT (2 VIEW) INDICATION: Waking up with sharp pain to right lower ribs.. TECHNIQUE: Two view chest 9:04 AM CORRELATION STUDY: 07/07/2018 FINDINGS: The heart size, mediastinal configuration and pulmonary vasculature are within normal limits. Lung ochoa are hyperinflated with changes of COPD. There is presence of multiple left-sided rib fracture deformities appearing to be subcutaneous incompletely healed with some callus formation present. Associated pleural thickening along left lateral chest wall has developed, changed from prior study. Small left pleural effusion. Right hemithorax appearing unremarkable. IMPRESSION: 1. Incompletely healed left lower lateral rib fracture deformities with associated pleural thickening and/or effusion. Minimal atelectasis left lung base. 2. No definitive acute abnormality about the right hemithorax. Dictated on workstation # [id number] Dict: 11/23/18 [id number] Trans: 11/23/18 1007 [facility] [id number] Interpreted by: ALEXANDRU WEATHERS DO Electronically signed by: Diagonstic Imaging: Xray Plain Films/CT/US/NM/MRI: other Comments [facility] [place], [place] NAME: JANE RICK [facility] REC#: [id number] PT STATUS: REG ER : 1980 PHYSICIAN: YESENIA GOLDEN MD ADMIT DATE: 11/23/18/ER Draft Date of Exam:11/23/18 RIBS, RIGHT 2-3 VIEWS INDICATION: Awoke earlier in the day with right lower rib pain. TECHNIQUE: 3 views right ribs, 9:06 AM. CORRELATION STUDY: 10/16/2018 FINDINGS: There is no acute displaced right-sided rib fracture deformity. The right lung field is relatively clear. No pneumothorax or significant effusion. IMPRESSION: 1. Negative for acute displaced right rib fracture. Dictated on workstation # [id number] Dict: 11/23/18 0957 Trans: 11/23/18 [facility] [place] [id number] Interpreted by: ALEXANDRU WEATHERS DO Electronically signed by: Diagonstic Imaging: Ultrasound Plain Films/CT/US/NM/MRI: abdomen Comments [facility] [place], [place] NAME: JANE RICK [facility] REC#: [id number] PT STATUS: REG ER : 1980 PHYSICIAN: YESENIA GOLDEN MD ADMIT DATE: 11/23/18/ER Draft Date of Exam:11/23/18 US GALLBLADDER [id number] PROCEDURE: US Gallbladder. TECHNIQUE: Multiple real-time grayscale images were obtained over the right upper quadrant in various projections. INDICATION: Abdominal pain COMPARISON: None available. FINDINGS: The liver is enlarged measuring 23 cm in length. Diffuse increased echogenicity throughout the liver is compatible hepatic steatosis. No focal hepatic lesion. The main portal vein is patent with normal direction of flow. Gallbladder is partially contracted without gallstones or sludge. No pericholecystic fluid or gallbladder wall thickening. The common bile duct is obscured by overlying bowel gas. No intrahepatic biliary dilation. Pancreas obscured by overlying bowel gas as well. The right kidney is normal in size. No hydronephrosis, shadowing calculi, or suspicious mass lesion. IMPRESSION: 1. Partially contracted gallbladder without gallstones. 2. Hepatomegaly with diffuse hepatic steatosis. Dictated on workstation # [id number] Dict: 11/23/18 1112 Trans: 11/23/18 1115 [facility] [id number] Interpreted by: CHUCK ESTRADA MD Electronically signed by: Departure Impression Primary Impression: Right-sided chest wall pain Disposition: 01 HOME, SELF-CARE Condition: Stable Departure-Patient Inst. Decision time for Depature: 11:28 Referrals: PETRA GARZON MD (PCP/Family) Primary Care Physician Patient Instructions: Chest Pain (DC) Add. Discharge Instructions: All discharge instructions reviewed with patient and/or family. Voiced understanding. You may take ibuprofen 800 mg every 8 hours as needed for pain. You may take Tylenol/acetaminophen 1000 mg every 8 hours as needed for pain. Follow-up with your DrJoe in a few days for recheck. Return for worse pain, fever, vomiting, weakness, breathing problems or other concerns as needed. YESENIA GOLDEN MD Nov 23, 2018 10:39
--- NOTE | 2018-11-23 11:15 | NUR ---
PT COMPLAINS OF PAIN. DR NOTIFIED.
--- NOTE | 2018-11-23 11:16 | Diagnostic Imaging Report ---
PROCEDURE: US Gallbladder. TECHNIQUE: Multiple real-time grayscale images were obtained over the right upper quadrant in various projections. INDICATION: Abdominal pain COMPARISON: None available. FINDINGS: The liver is enlarged measuring 23 cm in length. Diffuse increased echogenicity throughout the liver is compatible hepatic steatosis. No focal hepatic lesion. The main portal vein is patent with normal direction of flow. Gallbladder is partially contracted without gallstones or sludge. No pericholecystic fluid or gallbladder wall thickening. The common bile duct is obscured by overlying bowel gas. No intrahepatic biliary dilation. Pancreas obscured by overlying bowel gas as well. The right kidney is normal in size. No hydronephrosis, shadowing calculi, or suspicious mass lesion. IMPRESSION: 1. Partially contracted gallbladder without gallstones. 2. Hepatomegaly with diffuse hepatic steatosis. Dictated by: Dictated on workstation # [id number]
[2018-11-23] MEDS ORDERED: HYDROcodone/APAP 7.5 MG/325 MG (LORTAB, LORCET PLUS) TABLET PO STA (11:25)
[2018-11-23 12:12] VITALS: BP 138/89
== END 2018-11-23 12:12 | disposition home or self-care (01) ==
LOC: EDUNIT# 08:16 → ER 08:18
DX: R07.89 Other chest pain (principal); R10.9 Unspecified abdominal pain; J44.9 Chronic obstructive pulmonary disease, unspecified; I10 Essential (primary) hypertension; F32.9 Major depressive disorder, single episode, unspecified; K21.9 Gastro-esophageal reflux disease without esophagitis; F12.10 Cannabis abuse, uncomplicated; F17.210 Nicotine dependence, cigarettes, uncomplicated; Z88.0 Allergy status to penicillin; Z88.5 Allergy status to narcotic agent; Z87.19 Personal history of other diseases of the digestive system; Z79.51 Long term (current) use of inhaled steroids
CPT/HCPCS: 36415; 71046; 71100; 76705; 80053; 84484; 85025; 93005

== ENCOUNTER 2019-02-25 15:08 | Emergency (ER) | payer OTHER ==
[~2019-02-25] VITALS: Ht 193 cm; Wt 135.2 kg
[2019-02-25] MEDS ORDERED: KETOROLAC 30 MG/ML VIAL IVP STA (15:31)
[2019-02-25] MEDS ORDERED: ASPIRIN 81 MG CHEW (CHILDREN'S ASA) PO STA (15:31)
[2019-02-25 15:50] LABS: BASOPHILS # (AUTO) 0.1 10^3/uL (0.0-0.1); BASOPHILS % (AUTO) 0 % (0-10); EOSINOPHILS # (AUTO) 0.3 10^3/uL (0.0-0.3); EOSINOPHILS % (AUTO) 2 % (0-10); HEMATOCRIT 43 % (40-54); HEMOGLOBIN 14.5 G/DL (13.3-17.7); LYMPHOCYTES # (AUTO) 1.5 X 10^3 (1.0-4.0); LYMPHOCYTES % (AUTO) 10 % (12-44); MEAN CORPUSCULAR HEMOGLOBIN 28 PG (25-34); MEAN CORPUSCULAR HGB CONC 34 G/DL (32-36); MEAN CORPUSCULAR VOLUME 83 FL (80-99); MEAN PLATELET VOLUME 9.9 FL (7.4-10.4); MONOCYTES # (AUTO) 1.2 X 10^3 (0.0-1.0); MONOCYTES % (AUTO) 8 % (0-12); NEUTROPHILS # (AUTO) 11.5 X 10^3 (1.8-7.8); NEUTROPHILS % (AUTO) 79 % (42-75); PLATELET COUNT 312 10^3/uL (130-400); RED CELL DISTRIBUTION WIDTH 14.5 % (10.0-14.5); WHITE BLOOD COUNT 14.5 10^3/uL (4.3-11.0)
[2019-02-25 16:01] LABS: ALANINE AMINOTRANSFERASE 32 U/L (0-55); ALBUMIN 3.9 GM/DL (3.2-4.5); ALKALINE PHOSPHATASE 106 U/L (40-136); BILIRUBIN,TOTAL 0.2 MG/DL (0.1-1.0); BUN/CREATININE RATIO 12; CARBON DIOXIDE 28 MMOL/L (21-32); CHLORIDE 106 MMOL/L (98-107); CREATININE SERUM 0.86 MG/DL (0.60-1.30); GFR ESTIMATED > 60; GLUCOSE 113 MG/DL (70-105); POTASSIUM 4.1 MMOL/L (3.6-5.0); SODIUM 139 MMOL/L (135-145); TOTAL PROTEIN 6.6 GM/DL (6.4-8.2)
[2019-02-25] MEDS ORDERED: NS IV 1000 ML 1,000 ML IV ONE (16:06)
[2019-02-25 16:12] LABS: BAND NEUTROPHILS 1 %; BASOPHILS % (MANUAL) 0 %; EOSINOPHILS % (MANUAL) 1 %; MONOCYTES % (MANUAL) 4 %; NEUTROPHILS % (MANUAL) 81 %
[2019-02-25 16:14] LABS: LYMPHOCYTES % (MANUAL) 12 %; RBC MORPH NORMAL; REACTIVE LYMPHOCYTES 1 %
--- NOTE | 2019-02-25 16:31 | ED Chest Pain ---
General Chief Complaint: Chest Wall Stated Complaint: L SIDE PAIN Nursing Triage Note: PT CO CHEST WALL PAIN ON HIS LEFT SIDE UNDER HIS ARMPIT. HAS HURT FOR 2 DAYS BUT IT IS WORSE TODAY. Nursing Sepsis Screen: No Definite Risk Source: patient Exam Limitations: no limitations History of Present Illness Date Seen by Provider: Feb 25, 2019 Time Seen by Provider: 15:57 Initial Comments Here with 2 days of left sided chest discomfort that he describes as a pain that is worse with deep breathing, cough and movement. States it's mid axillary line and then there is anterior but no nipple line. Does not know of any inciting events other than coughing. States he has COPD. Denies nausea or vomiting. Denies weakness, sweating or other concerns. Has tried his ibuprofen 800 mg not work previously. Timing/Duration: changing over time, 2-3 days Severity/Quality: moderate, aching, sharp Location: other (left anterior upper chest wall) Radiation: other (central) Activities at Onset: none Prior CP/Workup: no prior cardiac workup Modifying Factors: worse with movement; improves with rest ASA po ANESTHESIOLOGIST ASSISTANT: No NTG SL ANESTHESIOLOGIST ASSISTANT: No Associated Symptoms: No abdominal pain, No back pain, No fever/chills, No nausea/vomiting; shortness of breath; No weakness Allergies and Home Medications Allergies Coded Allergies: Penicillins (Unverified Allergy, Mild, 11/07/09) codeine (Unverified Allergy, Mild, 11/07/09) egg (Verified Allergy, Unknown, 09/15/16) Home Medications Albuterol 8.5 Gm Hfa.aer.ad, 2 PUFF IH QID PRN for SHORTNESS OF BREATH, (Reported) NEEDED FOR SHORTNESS OF BREATH Beclomethasone Dipropionate 7.3 Gm Aer.w.adap, 2 PUFF IH BID, (Reported) 40 MCG Hydrocodone Bit/Acetaminophen 1 Tab Tab, 1 EACH PO Q4-6HR PRN for PAIN-MODERATE Prescribed by: FIORDALIZA BARTH on 10/16/182031 Patient Home Medication List Home Medication List Reviewed: Yes Review of Systems Review of Systems Constitutional: see HPI; No chills, No fever EENTM: No Symptoms Reported Respiratory: See HPI Cardiovascular: Chest Pain; Denies Edema, Denies Irregular Heart Rate Gastrointestinal: No Symptoms Reported Genitourinary: No Symptoms Reported Musculoskeletal: see HPI, muscle pain; No neck pain Skin: no symptoms reported Psychiatric/Neurological: No Symptoms Reported All Other Systems Reviewed Negative Unless Noted: Yes Past Viswtpr-Ktetss-Laspnz Hx Past Med/Social Hx: Reviewed Nursing Past Med/Soc Hx Patient Social History Alcohol Use: Past History Recreational Drug Use: Yes Drug of Choice: marijuana Smoking Status: Current Everyday Smoker Type Used: Cigarettes 2nd Hand Smoke Exposure: Yes Recent Foreign Travel: No Contact w/Someone Who Travel: No Recent Infectious Disease Expo: No Recent Hopitalizations: No Past Medical History Surgeries: Yes Orthopedic Respiratory: Yes Asthma, COPD Cardiac: Yes Hypertension Neurological: No Genitourinary: No Gastrointestinal: Yes Gastroesophageal Reflux, Hemorrhoids Musculoskeletal: Yes (RIB FX'S) Chronic Back Pain Endocrine: No HEENT: No Cancer: No Psychosocial: Yes (MOOD SWINGS) Sleep Difficulties, Depression Integumentary: No Blood Disorders: No Family Medical History Reviewed Nursing Family Hx Physical Exam Vital Signs Vital Signs - First Documented 02/25/19 15:14 Temp 99.4 Pulse 78 Resp 13 B/P (MAP) 132/84 (100) Pulse Ox 95 O2 Delivery Room Air Capillary Refill : Less Than 3 Seconds Height, Weight, BMI Height: 6'4.00" Weight: 298lbs. 0oz. 135.022975rz; 26.78 BMI Method:Stated General Appearance: No Apparent Distress, WD/WN HEENT: PERRL/EOMI, Pharynx Normal Neck: Non Tender, Supple Respiratory: Lungs Clear, Normal Breath Sounds, Other (tender along the left chest wall) Cardiovascular: Regular Rate, Rhythm, No Murmur Gastrointestinal: Non Tender, Soft Extremity: Normal Range of Motion, Non Tender Neurologic/Psychiatric: Alert, Oriented x3 Skin: Normal Color, Warm/Dry Progress/Results/Core Measures Results/Orders Lab Results Laboratory Tests Test 02/25/19 15:26 Range/Units White Blood Count 14.5 H 4.3-11.0 10^3/uL Red Blood Count 5.21 4.35-5.85 10^6/uL Hemoglobin 14.5 13.3-17.7 G/DL Hematocrit 43 40-54 % Mean Corpuscular Volume 83 80-99 FL Mean Corpuscular Hemoglobin 28 25-34 PG Mean Corpuscular Hemoglobin Concent 34 32-36 G/DL Red Cell Distribution Width 14.5 10.0-14.5 % Platelet Count 312 130-400 10^3/uL Mean Platelet Volume 9.9 7.4-10.4 FL Neutrophils (%) (Auto) 79 H 42-75 % Lymphocytes (%) (Auto) 10 L 12-44 % Monocytes (%) (Auto) 8 0-12 % Eosinophils (%) (Auto) 2 0-10 % Basophils (%) (Auto) 0 0-10 % Neutrophils # (Auto) 11.5 H 1.8-7.8 X 10^3 Lymphocytes # (Auto) 1.5 1.0-4.0 X 10^3 Monocytes # (Auto) 1.2 H 0.0-1.0 X 10^3 Eosinophils # (Auto) 0.3 0.0-0.3 10^3/uL Basophils # (Auto) 0.1 0.0-0.1 10^3/uL Neutrophils % (Manual) 81 % Lymphocytes % (Manual) 12 % Monocytes % (Manual) 4 % Eosinophils % (Manual) 1 % Basophils % (Manual) 0 % Band Neutrophils 1 % Reactive Lymphocytes 1 % Blood Morphology Comment NORMAL D-Dimer 0.64 H 0.00-0.49 UG/ML Sodium Level 139 135-145 MMOL/L Potassium Level 4.1 3.6-5.0 MMOL/L Chloride Level 106 98-107 MMOL/L Carbon Dioxide Level 28 21-32 MMOL/L Anion Gap 5 5-14 MMOL/L Blood Urea Nitrogen 10 7-18 MG/DL Creatinine 0.86 0.60-1.30 MG/DL Estimat Glomerular Filtration Rate > 60 BUN/Creatinine Ratio 12 Glucose Level 113 H 70-105 MG/DL Calcium Level 9.0 8.5-10.1 MG/DL Corrected Calcium 9.1 8.5-10.1 MG/DL Total Bilirubin 0.2 0.1-1.0 MG/DL Aspartate Amino Transf (AST/SGOT) 16 5-34 U/L Alanine Aminotransferase (ALT/SGPT) 32 0-55 U/L Alkaline Phosphatase 106 40-136 U/L Troponin I < 0.028 <0.028 NG/ML C-Reactive Protein High Sensitivity 1.01 H 0.00-0.50 MG/DL Total Protein 6.6 6.4-8.2 GM/DL Albumin 3.9 3.2-4.5 GM/DL My Orders Orders - CHICO,YESENIA D MD Cbc With Automated Diff (02/25/19 15:31) Comprehensive Metabolic Panel (02/25/19 15:31) Hs C Reactive Protein (02/25/19 15:31) Fibrin Degradation Products (02/25/19 15:31) Troponin I (02/25/19 15:31) Ekg Tracing (02/25/19 15:31) Monitor-Rhythm Ecg Trace Only (02/25/19 15:31) Aspirin Chewable Tablet (Baby Aspirin Ch (02/25/19 15:31) Ketorolac Injection (Toradol Injection) (02/25/19 15:31) Manual Differential (02/25/19 15:26) Ed Iv/Invasive Line Start (02/25/19 16:06) Ns Iv 1000 Ml (Sodium Chloride 0.9%) (02/25/19 16:06) Chest Pa/Lat (2 View) (02/25/19 16:06) Medications Given in ED Current Medications Medications Dose Ordered Sig/Adonay Route Start Time Stop Time Status Last Admin Dose Admin Sodium Chloride 1,000 ml @ 0 mls/hr Q0M ONCE IV 02/25/19 16:06 02/25/19 16:08 DC 02/25/19 16:28 999 MLS/HR Vital Signs/I&O 02/25/19 15:14 Temp 99.4 Pulse 78 Resp 13 B/P (MAP) 132/84 (100) Pulse Ox 95 O2 Delivery Room Air Blood Pressure Mean: 100 Progress Progress Note : Progress Note Seen and evaluated. Aspirin 324 mg by mouth daily. Labs, chest x-ray and EKG ordered. Toradol 30 mg IV ordered. Monitor Patient. 1728: Hydrocodone 5/325 one tab by mouth given. Overall no acute findings. Patient was encouraged to that. Discharge home with return precautions. Patient verbalize understanding instructions and agreement with plan. Initial ECG Impression Date: Feb 25, 2019 Initial ECG Impression Time: 15:43 Initial ECG Rate: 78 Initial ECG Rhythm: Normal Sinus Comment Sinus rhythm with nonspecific intraventricular conduction delay. Normal axis. No evidence of ST elevation [place]. Similar to previous of 11/23/18. Interpreted by me. Diagnostic Imaging Diagonstic Imaging: Xray Plain Films/CT/US/NM/MRI: chest Comments NAME: JANE RICK [facility] REC#: [id number] PT STATUS: REG ER : 1980 PHYSICIAN: YESENIA GOLDEN MD ADMIT DATE: 02/25/19/ER Signed Date of Exam: 02/25/19 CHEST PA/LAT (2 VIEW) INDICATION: Left-sided chest pain. FINDINGS: PA and lateral views. The lungs are well aerated and clear. Heart is not enlarged. There is no pulmonary edema. No hilar adenopathy. No pneumothorax or pleural effusions. IMPRESSION: Normal PA and lateral chest. Dictated by: Dictated on workstation # [id number] Dict: 02/25/19 1634 Trans: 02/25/19 1643 Interpreted by: ANGELITO ESTRADA MD Electronically signed by: ANGELITO ESTRADA MD 02/25/19 1643 Departure Impression Primary Impression: Chest wall pain Disposition: 01 HOME, SELF-CARE Condition: Stable Departure-Patient Inst. Decision time for Depature: 17:32 Referrals: PETRA GARZON MD (PCP/Family) Primary Care Physician Patient Instructions: Chest Pain (DC) Add. Discharge Instructions: All discharge instructions reviewed with patient and/or family. Voiced understanding. You may take ibuprofen 800 mg every 8 hours as needed for pain. You may also take Tylenol/acetaminophen 1000 mg every 8 hours as needed for pain. Drink plenty of fluids. Follow-up with your DrJoe in a few days for recheck. Return for worsening, fever, vomiting, weakness, breathing problems or other concerns as needed. YESENIA GOLDEN MD Feb 25, 2019 16:31
--- NOTE | 2019-02-25 16:37 | Diagnostic Imaging Report ---
INDICATION: Left-sided chest pain. FINDINGS: PA and lateral views. The lungs are well aerated and clear. Heart is not enlarged. There is no pulmonary edema. No hilar adenopathy. No pneumothorax or pleural effusions. IMPRESSION: Normal PA and lateral chest. Dictated by: Dictated on workstation # [id number]
[2019-02-25] MEDS ORDERED: HYDROcodone/APAP 5 MG/325 MG (LORTAB) TAB PO ONE (17:30)
[2019-02-25 17:42] VITALS: BP 112/84
--- OUTSIDE RECORDS SUMMARY | 2019-02-25 21:08 | XMS REPORT ---
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 Name Role Phone PETRA GARZON Unavailable PROBLEMS Type Condition ICD9-CM Code [id number] Code Onset Dates Condition Status SNOMED Code Problem Panic disorder with agoraphobia F40.01 Active 08648105 Problem Bipolar disorder, unspecified F31.9 Active 21706025 Problem Gastroesophageal reflux disease without esophagitis K21.9 Active 060392065 Problem Cannabis use disorder, moderate, dependence F12.20 Active 70481854 Problem Moderate persistent asthma without complication J45.40 Active 355025593 Problem Cigarette nicotine dependence with other nicotine-induced disorder F17.218 Active 20013313 Problem Cannabis dependence F12.20 Active 33996281 Problem Post-traumatic stress disorder F43.10 Active 78531845 Problem Chronic post-traumatic stress disorder (PTSD) F43.12 Active 976408266 Problem Seizures R56.9 Active 75608688 Problem Anxiety, generalized F41.1 Active 65984441 Problem Moderate persistent asthma, uncomplicated J45.40 Active 609924656 Problem Obstructive sleep apnea syndrome G47.33 Active 94088878 Problem Adjustment disorder with mixed anxiety and depressed mood F43.23 Active 45633337 Problem Adjustment disorder with anxious mood F43.22 Active 63530606 Problem Adjustment disorder with depressed mood F43.21 Active 50438344 Problem Other chronic pain G89.29 Active [id number] ALLERGIES No Information ENCOUNTERS Encounter Location Date Diagnosis [facility] [address] [facility] [id number] [address] Mar, [facility] [address], [place] [address] Feb, [facility] [id number] [address] Feb, [facility] [id number] [place] [address] Feb, [place] [id number] [place] [address] Feb, Bipolar disorder, unspecified F31.9 ; Chronic post-traumatic stress disorder (PTSD) F43.12 ; Panic disorder with agoraphobia F40.01 and Cannabis use disorder, mild, in early remission, abuse F12.11 [place] [id number] [place] [address] Jan, [place] [id number] [place] [address] Jan, [place] [id number] [place] [address] Jan, [place] [id number] [place] [address] Jan, [place] [id number] [place] [address] Jan, Bipolar disorder, unspecified F31.9 ; Cannabis use disorder, moderate, dependence F12.20 ; Anxiety, generalized F41.1 and Post-traumatic stress disorder F43.10 [place] [id number] [place] [address] Jan, [place] [id number] [place] [address] December, [place] [id number] [place] [address] Nov, [place] [id number] [place] [address] Nov, Cannabis use disorder, moderate, dependence F12.20 [place] [id number] [place] [address] Nov, Moderate persistent asthma, uncomplicated J45.40 [place] [id number] [place] [address] Nov, [place] [id number] [place] [address] Nov, Moderate persistent asthma, uncomplicated J45.40 [facility] [id number] [place] [address] 16 Nov, 2018 Bipolar disorder, unspecified F31.9 ; Panic disorder with agoraphobia F40.01 ; Chronic post-traumatic stress disorder (PTSD) F43.12 and Cannabis use disorder, moderate, dependence F12.20 [place] [id number] [place] [address] Nov, Moderate persistent asthma, uncomplicated J45.40 [place] [address] [address] Nov, Pleurisy R09.1 and Bronchitis J40 [place] [address] [address] Oct, Gastroesophageal reflux disease without esophagitis K21.9 [place] [address] [address] Oct, [place] [id number] [place] [address] Oct, [place] [id number] [place] [address] Oct, [place] [id number] [place] [address] Oct, [place] [id number] [place] [address] Oct, Pneumonia of left lower lobe due to infectious organism J18.1 [place] [id number] [place] [address] Oct, Pleuritis R09.1 [place] [address] [address] Oct, [place] [address] [place] [address] Oct, Bipolar disorder, unspecified F31.9 ; Panic disorder with agoraphobia F40.01 ; Chronic post-traumatic stress disorder (PTSD) F43.12 and Cannabis use disorder, moderate, dependence F12.20 [place] [id number] [place] [address] Sep, [place] [id number] [place] [address] Sep, Rib pain R07.81 and Eustachian tube dysfunction H69.80 [place] [address] [address] Sep, [place] [id number] [place] [address] Sep, [place] [id number] [place] [address] Aug, [place] [id number] [place] [address] Aug, Bipolar disorder, unspecified F31.9 ; Chronic post-traumatic stress disorder (PTSD) F43.12 ; Cannabis use disorder, moderate, dependence F12.20 and Psychogenic nonepileptic seizure F44.5 [place] [id number] [place] [address] Aug, [place] [id number] [place] [address] Aug, [place] [id number] [place] [address] Jul, [facility] [id number] [place] [address] Jul, Bipolar disorder, unspecified F31.9 ; Chronic post-traumatic stress disorder (PTSD) F43.12 ; Panic disorder with agoraphobia F40.01 and Cannabis use disorder, moderate, dependence F12.20 [facility] [id number] [place] [address], [place] [address] Jul, [facility] [id number] [place] [address] Jun, [facility] [id number] [place] [address] Jun, [facility] [address] [address] Jun, [facility] [id number] [place] [address] Jun, Seizures R56.9 [facility] [id number] [place] [address] Jun, [facility] [address] [address] May, [facility] [id number] [place] [address] May, [facility] [id number] [place] [address] May, [facility] [id number] [place] [address] May, [facility] [id number] [place] [address] May, [facility] [id number] [place] [address] May, [facility] [id number] [place] [address] May, [facility] [id number] [place] [address] May, Seizures R56.9 [facility] [id number] [place] [address] May, [place] [address], [place] [address] Apr, [facility] [id number] [place] [address] Apr, [facility] [id number] [place] [address] Apr, [place] [id number] [place] [address] Apr, [place] [id number] [place] [address] Apr, Bipolar disorder, unspecified F31.9 ; Panic disorder with agoraphobia F40.01 and Cannabis use disorder, moderate, dependence F12.20 [place] [id number] [place] [address] Mar, [place] [id number] [place] [address] Mar, [place] [id number] [place] [address] Jan, Low back pain M54.5 ; Moderate persistent asthma without complication J45.40 and Other chronic pain G89.29 [place] [id number] [place] [address] Jan, Moderate persistent asthma without complication J45.40 ; Low back pain M54.5 ; Other chronic pain G89.29 ; Gastroesophageal reflux disease without esophagitis K21.9 and Cigarette nicotine dependence with other nicotine- induced disorder F17.218 [place] [id number] [place] [address] December, Bipolar disorder, unspecified F31.9 ; Panic disorder with agoraphobia F40.01 ; Cannabis use disorder, moderate, dependence F12.20 and Chronic post- traumatic stress disorder (PTSD) F43.12 [place] [id number] [place] [address] December, [facility] [id number] [place] [address] December, [place] [id number] [place] [address] Nov, [place] [id number] [place] [address] Oct, Bipolar disorder, unspecified F31.9 ; Chronic post-traumatic stress disorder (PTSD) F43.12 ; Panic disorder with agoraphobia F40.01 and Cannabis use disorder, moderate, dependence F12.20 [place] [address] [address] Sep, [place] [id number] [place] [address] Sep, [place] [address] [address] Aug, [place] [id number] [place] [address] Aug, Cannabis use disorder, moderate, dependence F12.20 ; Panic disorder with agoraphobia F40.01 and Bipolar affective disorder, currently depressed, moderate F31.32 [place] [id number] [place] [address] May, Diarrhea of presumed infectious origin A09 and Nausea and vomiting, intractability of vomiting not specified, unspecified vomiting type R11.2 [place] [id number] [place] [address] Apr, [place] [address] [address] Mar, Nausea R11.0 and Gastroenteritis K52.9 [place] [id number] [place] [address] Mar, Gastroesophageal reflux disease without esophagitis K21.9 [place] [id number] [place] [address] Mar, Gastroesophageal reflux disease without esophagitis K21.9 [facility] [id number] [place] [address] Mar, [facility] [id number] [place] [address] Mar, [place] [address] [address] Mar, [place] [id number] [place] [address] Feb, Acute pain of right shoulder M25.511 and Muscle spasm M62.838 [place] [id number] [place] [address] Feb, Acute labyrinthitis, unspecified laterality H83.09 [place] [id number] [place] [address] December, [place] [id number] [place] [address] December, [place] [id number] [place] [address] December, Cannabis use disorder, moderate, dependence F12.20 ; Anxiety, generalized F41.1 ; Adjustment disorder with mixed anxiety and depressed mood F43.23 and Chronic post-traumatic stress disorder (PTSD) F43.12 [place] [id number] [place] [address] December, [place] [id number] [place] [address] December, [facility] [id number] [place] [address] Nov, Acute nasopharyngitis J00 [place] [id number] [place] [address] Nov, Cannabis use disorder, moderate, dependence F12.20 ; Anxiety, generalized F41.1 ; Adjustment disorder with mixed anxiety and depressed mood F43.23 and Chronic post-traumatic stress disorder (PTSD) F43.12 [place] [address] [place] [address] Nov, Cannabis use disorder, moderate, dependence F12.20 ; Anxiety, generalized F41.1 ; Adjustment disorder with mixed anxiety and depressed mood F43.23 and Chronic post-traumatic stress disorder (PTSD) F43.12 [place] [id number] [place] [address] Oct, Diarrhea, unspecified R19.7 ; Vomiting, unspecified R11.10 and Viral gastroenteritis A08.4 [id number] [place] [address] Oct, Bipolar disorder, unspecified F31.9 ; Panic disorder with agoraphobia F40.01 ; Cannabis use disorder, moderate, dependence F12.20 ; Cigarette nicotine dependence with other nicotine-induced disorder F17.218 ; Anxiety, generalized F41.1 ; Post-traumatic stress disorder F43.10 and Adjustment disorder with mixed anxiety and depressed mood F43.23 [id number] [place] [address] Oct, Bipolar disorder, unspecified F31.9 ; Chronic post-traumatic stress disorder (PTSD) F43.12 ; Panic disorder with agoraphobia F40.01 and Cannabis use disorder, moderate, dependence F12.20 [address] [place] [address] Oct, Bipolar disorder, unspecified F31.9 ; Panic disorder with agoraphobia F40.01 ; Cannabis use disorder, moderate, dependence F12.20 ; Cigarette nicotine dependence with other nicotine-induced disorder F17.218 ; Anxiety, generalized F41.1 ; Post-traumatic stress disorder F43.10 and Adjustment disorder with mixed anxiety and depressed mood F43.23 [id number] [place] [address] 14 Oct, 2016 Viral gastroenteritis A08.4 [place] [address] [place] [address] 09 Oct, 2016 Anxiety, generalized F41.1 ; Post-traumatic stress disorder F43.10 ; Adjustment disorder with depressed mood F43.21 and Adjustment disorder with anxious mood F43.22 [place] [id number] [place] [address] 07 Oct, 2016 Panic disorder with agoraphobia F40.01 ; Cannabis use disorder, moderate, dependence F12.20 ; Bipolar disorder, unspecified F31.9 ; Cigarette nicotine dependence with other nicotine-induced disorder F17.218 ; Adjustment disorder with anxious mood F43.22 ; Anxiety, generalized F41.1 ; Post-traumatic stress disorder F43.10 and Cannabis dependence F12.20 [place] [id number] [place] [address] Oct, Bipolar disorder, unspecified F31.9 and Chronic post-traumatic stress disorder (PTSD) F43.12 [place] [id number] [place] [address] Oct, Bipolar disorder, unspecified F31.9 and Chronic post-traumatic stress disorder (PTSD) F43.12 [place] [address] [place] [address] 28 Sep, 2016 Bipolar disorder, unspecified F31.9 ; Panic disorder with agoraphobia F40.01 ; PTSD (post-traumatic stress disorder) F43.10 ; Cannabis use disorder, moderate, dependence F12.20 ; Cannabis dependence F12.20 and Anxiety, generalized F41.1 [place] [id number] [place] [address] 22 Sep, 2016 Cannabis use disorder, moderate, dependence F12.20 ; Anxiety, generalized F41.1 and Adjustment disorder with mixed anxiety and depressed mood F43.23 [place] [address] [place] [address] 15 Sep, 2016 Bipolar disorder, unspecified F31.9 ; Panic disorder with agoraphobia F40.01 ; PTSD (post-traumatic stress disorder) F43.10 ; Cannabis use disorder, moderate, dependence F12.20 ; Cannabis dependence F12.20 and Anxiety, generalized F41.1 [place] [address] [place], [place] [address] Sep, Bipolar disorder, unspecified F31.9 ; Panic disorder with agoraphobia F40.01 ; PTSD (post-traumatic stress disorder) F43.10 ; Cannabis use disorder, moderate, dependence F12.20 ; Cannabis dependence F12.20 and Anxiety, generalized F41.1 [place] [id number] [place] [address] Sep, Bipolar disorder, unspecified F31.9 ; Post-traumatic stress disorder F43.10 and Cannabis dependence F12.20 [address] [place] [address] Sep, [place] [address] Sep, Suicidal behavior without attempted self-injury R46.89 [id number] [place] [address] Sep, [place] [id number] [place] [address] Sep, Cannabis use disorder, moderate, dependence F12.20 ; Panic disorder with agoraphobia F40.01 ; Bipolar disorder, unspecified F31.9 and Anxiety, generalized F41.1 [place] [id number] [place] [address] Sep, Bipolar disorder, unspecified F31.9 ; PTSD (post-traumatic stress disorder) F43.10 ; Panic disorder with agoraphobia F40.01 and Cannabis use disorder, moderate, dependence F12.20 [place] [address] [place] [address] Sep, [place] [id number] [place] [address] Sep, PTSD (post-traumatic stress disorder) F43.10 ; Cannabis use disorder, moderate, dependence F12.20 and Suicidal risk R45.89 [place] [id number] [place] [address] Sep, [place] [address] [address] Jul, Bipolar disorder, unspecified F31.9 ; PTSD (post-traumatic stress disorder) F43.10 and Panic disorder with agoraphobia F40.01 [place] [address] [address] Jul, Obstructive sleep apnea syndrome G47.33 ; Moderate persistent asthma without complication J45.40 and Cigarette nicotine dependence with other nicotine-induced disorder F17.218 [place] [address] [address] Jul, [place] [id number] [place] [address] Jul, [place] [address] [address] May, [place] [id number] [place] [address] May, [place] [id number] [place] [address] May, [place] [id number] [place] [address] Apr, [place] [address] [address] Apr, Bipolar disorder, unspecified F31.9 ; PTSD (post-traumatic stress disorder) F43.10 ; Panic disorder with agoraphobia F40.01 and Cannabis use disorder, moderate, dependence F12.20 [place] [id number] [place] [address] Mar, Uncomplicated asthma, unspecified asthma severity J45.909 [place] [id number] [place] [address] Mar, [place] [id number] [place] [address] Mar, Moderate persistent asthma without complication J45.40 ; Gastroesophageal reflux disease without esophagitis K21.9 and Cigarette nicotine dependence with other nicotine-induced disorder F17.218 [place] [id number] [place] [address] Feb, [place] [id number] [place] [address] Jan, Bipolar disorder, unspecified F31.9 ; PTSD (post-traumatic stress disorder) F43.10 ; Panic disorder with agoraphobia F40.01 and Cannabis use disorder, moderate, dependence F12.20 [place] [id number] [place] [address] December, [place] [id number] [place] [address] Nov, [place] [id number] [place] [address] Nov, Bipolar disorder, unspecified F31.9 ; PTSD (post-traumatic stress disorder) F43.10 ; Panic disorder with agoraphobia F40.01 and Cannabis use disorder, moderate, dependence F12.20 [place] [address] [place] [address] Oct, [place] [id number] [place] [address] Oct, [place] [id number] [place] [address] Sep, [place] [id number] [place] [address] Sep, Bipolar disorder, unspecified F31.9 ; PTSD (post-traumatic stress disorder) F43.10 ; Panic disorder with agoraphobia F40.01 and Cannabis use disorder, moderate, dependence F12.20 [facility] [id number] [place] [address] Aug, [facility] [id number] [place] [address] Aug, [facility] [id number] [place] [address] Aug, Bipolar disorder, unspecified F31.9 ; PTSD (post-traumatic stress disorder) F43.10 ; Panic disorder with agoraphobia F40.01 and Cannabis use disorder, moderate, dependence F12.20 [id number] [place] [address] Jul, [address] [address] Apr, GERD (gastroesophageal reflux disease) 530.81 and Internal hemorrhoids 455.0 [id number] [place] [address] Feb, Rectal bleeding 569.3 and Hemorrhoids 455.6 [address] [id number] [place] [address] Jan, Sinusitis 473.9 and Otitis media 382.9 [place] [id number] [place] [id number] December, [place] [id number] [place] [id number] Nov, [address] [address] Nov, [place] [address] [place] [id number] [place] [id number] Oct, [address] [place] [address] Oct, [facility] [address] [id number] [place] [address] Sep, [facility] [place] [facility] [address] [id number] [place] [address] Sep, [facility] [address] [id number] [place] [address] Aug, [facility] [place] [facility] [address] [id number] [place] [address] Aug, [facility] [address] [id number] [place] [address] Jul, [facility] [address] [id number] [place] [address] Jul, [facility] [address] [id number] [place] [address] Jul, [facility] [place] [facility] [address] [id number] [place] [address] Jul, [facility] [place] [facility] [address] [id number] [place] [address] Jul, [facility] [place] [facility] [address] [id number] [place] [address] Jul, [facility] [place] [facility] [address] [id number] [place] [address] Jul, [facility] [place] [facility] [address] [id number] [place] [address] Jul, [facility] [place] [facility] [address] [id number] [place] [address] Jun, [facility] [place] [facility] [address] [id number] [place] [address] Jun, [facility] [place] [facility] [address] [id number] [place] [address] Jun, [facility] [place] [facility] [address] [id number] [place] [address] Jun, [facility] [place] [facility] [address] [id number] [place] [address] May, [facility] [place] [facility] [address] [id number] [place] [address] May, [facility] [place] [facility] [address] [id number] [place] [address] May, [facility] [place] [facility] [address] [id number] [place] [address] May, [facility] [place] [facility] [address] [id number] [place] [address] Apr, [facility] [place] [facility] [address] [id number] [place] [address] Apr, [facility] [place] [facility] [address] [id number] [place] [address] Apr, [facility] [place] [facility] [address] [id number] [place] [address] Apr, [facility] [place] [facility] [address] [id number] [place] [address] Mar, [facility] [place] [facility] [address] [id number] [place] [address] Mar, [facility] [place] [facility] [address] [id number], [place] [address] Mar, [facility] [place] [facility] [address] [id number] [place] [address] Mar, [facility] [place] [facility] [address] [id number] [place] [address] December, [facility] [place] [facility] [address] [id number] [place] [address] December, [facility] [place] [facility] [address] [id number], [place] [address] Nov, [facility] [place] [facility] [address] [id number] [place] [address] Nov, [facility] [place] [facility] [address] [id number] [place] [address] Sep, [facility] [place] [facility] [address] [id number] [place] [address] Sep, [facility] [place] [facility] [address] [id number] [place] [address] Sep, [facility] [place] [facility] [address] [id number] [place] [address] Sep, [facility] [place] [facility] [address] [id number] [place] [address] Aug, [facility] [place] [facility] [address] [facility] [id number] [place] [address] Jul, [facility] [place] [facility] [address] [id number] [place] [address] Jul, [facility] [place] [facility] [address] [facility] [id number] [place] [address] Jun, [facility] [place] [facility] [address] [facility] [id number] [place] [address] Jun, [facility] [place] [facility] [address] [facility] [id number] [place] [address] May, [facility] [place] [facility] [address] [id number] [place] [address] 18 May, 2013 [facility] [place] [facility] [address] [id number] [place] [address] 07 May, 2013 [facility] [place] [facility] [address] [id number] [place] [address] 17 Apr, 2013 [facility] [place] [facility] [address] [facility] [id number], [place] [address] 16 Apr, 2013 [facility] [place] [facility] [address] [id number] [place] [address] Apr, [facility] [place] [facility] [address] [id number] [place] [address] Apr, [facility] [place] [facility] [address] [id number] [place] [address] Mar, [facility] [place] [facility] [address] [id number] [place] [address] Mar, [facility] [place] [facility] [address] [id number] [place] [address] December, [facility] [place] [facility] [address] [id number] [place] [address] Oct, [facility] [place] [facility] [address] [id number] [place] [address] Oct, [facility] [address] [id number] [place] [address] Aug, [facility] [address] [id number] [place] [address] 17 Jul, 2012 [facility] [place] [facility] [address] [id number] [place] [address] 17 Jul, 2012 [facility] [place] [facility] [address] [id number] [place] [address] 13 Jul, 2012 [facility] [place] [facility] [address] [id number] [place] [address] 13 Jul, 2012 [facility] [place] [facility] [address] [id number] [place] [address] 14 Jun, 2012 [facility] [place] [facility] [address] [id number] [place] [address] 14 Jun, 2012 [facility] [place] [facility] [address] [id number] [place] [address] 14 Mar, 2012 [facility] [place] [facility] [address] [id number] [place] [address] 16 Feb, 2012 [facility] [place] [facility] [address] [id number] [place] [address] 16 Feb, 2012 [facility] [place] [facility] [address] [id number] [place] [address] December, [facility] [place] [facility] [address] [id number] [place] [address] Nov, [facility] [place] [facility] [address] [id number] [place] [address] Oct, [facility] [place] [facility] [address] [id number] [place] [address] Oct, [facility] [place] [facility] [address] [id number] [place] [address] Sep, [facility] [place] [facility] [address] [id number] [place] [address] Sep, [facility] [place] [facility] [address] [id number] [place] [address] Aug, [facility] [place] [facility] [address] [id number] [place] [address] Aug, [facility] [place] [facility] [address] [id number] [place] [address] Jul, [facility] [place] [facility] [address] [id number] [place] [address] Jul, [facility] [place] [facility] [address] [id number] [place] [address] Jul, [facility] [place] [facility] [address] [id number] [place] [address] Jun, [facility] [place] [facility] [address] [id number] [place] [address] May, [facility] [place] [facility] [address] [id number] [place] [address] Apr, [facility] [place] [facility] [address] [id number] [address] 18 Feb, 2011 [facility] [address] [facility] [id number], [place] [address] Sep, [facility] [id number], [place] [address] Jul, [facility] [id number], [place] [address] Jul, [facility] [id number], [place] [address] Jul, [facility] [id number], [place] [address] Jul, [facility] [id number], [place] [address] Jun, [facility] [id number], [place] [address] Feb, [facility] [id number], [place] [address] Jan, [facility] [id number], [place] [address] Feb, [facility] [address] [id number], [place] [address] Jul, IMMUNIZATIONS No Known Immunizations SOCIAL HISTORY Never Assessed REASON FOR VISIT PLAN OF CARE VITAL SIGNS MEDICATIONS Unknown [...]
--- OUTSIDE RECORDS SUMMARY | 2019-02-25 21:09 | XMS REPORT ---
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 Name Role Phone Migration, Doctor Unavailable Unavailable PROBLEMS Type Condition ICD9-CM Code RHS41-ME Code Onset Dates Condition Status SNOMED Code Problem Panic disorder with agoraphobia F40.01 Active 71367751 Problem Bipolar disorder, unspecified F31.9 Active 45080154 Problem Gastroesophageal reflux disease without esophagitis K21.9 Active 944622859 Problem Cannabis use disorder, moderate, dependence F12.20 Active 67692907 Problem Moderate persistent asthma without complication J45.40 Active 045489555 Problem Cigarette nicotine dependence with other nicotine-induced disorder F17.218 Active 62092828 Problem Cannabis dependence F12.20 Active 41681497 Problem Post-traumatic stress disorder F43.10 Active 88753067 Problem Chronic post-traumatic stress disorder (PTSD) F43.12 Active 272074763 Problem Seizures R56.9 Active 66472733 Problem Anxiety, generalized F41.1 Active 07157697 Problem Moderate persistent asthma, uncomplicated J45.40 Active 234581642 Problem Obstructive sleep apnea syndrome G47.33 Active 57978497 Problem Adjustment disorder with mixed anxiety and depressed mood F43.23 Active 11240839 Problem Adjustment disorder with anxious mood F43.22 Active 76000086 Problem Adjustment disorder with depressed mood F43.21 Active 79484094 Problem Other chronic pain G89.29 Active 71508322 ALLERGIES Substance Reaction Event Type Date Status Flexeril 10 Mg Tablet sedation Non Drug Allergy Nov, Active Hydrocodone NARC CONTRACT VIOLATION Non Drug Allergy Nov, Active ENCOUNTERS Encounter Location Date Diagnosis [facility] [address] [facility] [id number] [address] Feb, [facility] [address] [id number] [address] Jan, [facility] [address] [facility] [id number], [place] [address] Jan, [facility] [address] [address] 17 Jan, 2019 [facility] [id number] [place] [address] Jan, [facility] [id number] [place] [address] Jan, Bipolar disorder, unspecified F31.9 ; Cannabis use disorder, moderate, dependence F12.20 ; Anxiety, generalized F41.1 and Post-traumatic stress disorder F43.10 [place] [id number] [place] [address] Jan, [place] [id number] [place] [address] December, [place] [id number] [place] [address] Nov, [place] [id number] [place] [address] Nov, Cannabis use disorder, moderate, dependence F12.20 [place] [id number] [place] [address] Nov, Moderate persistent asthma, uncomplicated J45.40 [place] [id number] [place] [address] Nov, [place] [id number] [place] [address] Nov, Moderate persistent asthma, uncomplicated J45.40 [facility] [address] [place] [address] Nov, Bipolar disorder, unspecified F31.9 ; Panic disorder with agoraphobia F40.01 ; Chronic post-traumatic stress disorder (PTSD) F43.12 and Cannabis use disorder, moderate, dependence F12.20 [facility] [address] [place] [address] Nov, Moderate persistent asthma, uncomplicated J45.40 [facility] [id number] [place] [address] Nov, Pleurisy R09.1 and Bronchitis J40 [facility] [id number] [place] [address] Oct, Gastroesophageal reflux disease without esophagitis K21.9 [place] [address] [address] Oct, [place] [address] [address] Oct, [place] [address] [address] Oct, [place] [id number] [place] [address] Oct, [place] [address] [address] Oct, Pneumonia of left lower lobe due to infectious organism J18.1 [place] [id number] [place] [address] Oct, Pleuritis R09.1 [place] [id number] [place] [address] Oct, [place] [id number] [place] [address] Oct, Bipolar disorder, unspecified F31.9 ; Panic disorder with agoraphobia F40.01 ; Chronic post-traumatic stress disorder (PTSD) F43.12 and Cannabis use disorder, moderate, dependence F12.20 [place] [id number] [place] [address] Sep, [place] [id number] [place] [address] Sep, Rib pain R07.81 and Eustachian tube dysfunction H69.[address] [id number] [address] Sep, [facility] [id number] [place] [address] Sep, [facility] [id number] [place] [address] Aug, [facility] [id number] [place] [address] Aug, Bipolar disorder, unspecified F31.9 ; Chronic post-traumatic stress disorder (PTSD) F43.12 ; Cannabis use disorder, moderate, dependence F12.20 and Psychogenic nonepileptic seizure F44.5 [facility] [id number] [place] [address] Aug, [facility] [id number] [place] [address] Aug, [facility] [id number] [place] [address] Jul, [facility] [id number] [place] [address] Jul, Bipolar disorder, unspecified F31.9 ; Chronic post-traumatic stress disorder (PTSD) F43.12 ; Panic disorder with agoraphobia F40.01 and Cannabis use disorder, moderate, dependence F12.20 [facility] [address] [place] [address] Jul, [facility] [address] [place] [address] Jun, [facility] [id number] [place] [address] Jun, [facility] [id number] [place] [address] 14 Jun, 2018 [facility] [id number] [place] [address] Jun, Seizures R56.9 [facility] [place] [facility] [address] [facility] [id number] [place] [address] Jun, [facility] [place] [facility] [address] [facility] [id number] [place] [address], [place] [address] May, [facility] [place] [facility] [address] [facility] [id number] [place] [address] May, [facility] [place] [facility] [address] [facility] [id number] [place] [address], [place] [address] May, [facility] [place] [facility] [address] [facility] [id number] [place] [address] May, [facility] [place] [facility] [address] [facility] [id number] [place] [address], [place] [address] May, [facility] [place] [facility] [id number] [place] [address], [place] [address] May, [facility] [place] [facility] [address] [facility] [id number] [place] [address], [place] [address] May, [facility] [place] [facility] [id number] [place] [address], [place] [address] May, Seizures R56.9 [facility] [place] [facility] [address] [facility] [id number] [place] [address] May, [facility] [place] [facility] [address], [place] [address] Apr, [facility] [place] [facility] [address] [facility] [id number], [place] [address] Apr, [facility] [place] [facility] [address] [facility] [id number], [place] [address] Apr, [facility] [place] [facility] [address] [facility] [id number], [place] [address] Apr, [facility] [place] [facility] [id number] [place] [address] Apr, Bipolar disorder, unspecified F31.9 ; Panic disorder with agoraphobia F40.01 and Cannabis use disorder, moderate, dependence F12.20 [place] [address] [place] [address] Mar, [place] [id number] [place] [address] Mar, [place] [id number] [place] [address] Jan, Low back pain M54.5 ; Moderate persistent asthma without complication J45.40 and Other chronic pain G89.29 [place] [id number] [place] [address] Jan, Moderate persistent asthma without complication J45.40 ; Low back pain M54.5 ; Other chronic pain G89.29 ; Gastroesophageal reflux disease without esophagitis K21.9 and Cigarette nicotine dependence with other nicotine- induced disorder F17.218 [place] [id number] [place] [address] December, Bipolar disorder, unspecified F31.9 ; Panic disorder with agoraphobia F40.01 ; Cannabis use disorder, moderate, dependence F12.20 and Chronic post- traumatic stress disorder (PTSD) F43.12 [place] [address] [place] [address] December, [place] [id number] [place] [address] December, [place] [id number] [place] [address] Nov, [place] [id number] [place] [address] Oct, Bipolar disorder, unspecified F31.9 ; Chronic post-traumatic stress disorder (PTSD) F43.12 ; Panic disorder with agoraphobia F40.01 and Cannabis use disorder, moderate, dependence F12.20 [place] [id number] [place] [address] Sep, [facility] [id number] [place] [address] Sep, [place] [id number] [place] [address] Aug, [place] [id number] [place] [address] Aug, Cannabis use disorder, moderate, dependence F12.20 ; Panic disorder with agoraphobia F40.01 and Bipolar affective disorder, currently depressed, moderate F31.32 [place] [id number] [place] [address] May, Diarrhea of presumed infectious origin A09 and Nausea and vomiting, intractability of vomiting not specified, unspecified vomiting type R11.2 [place] [id number] [place] [address] Apr, [place] [id number] [place] [address] Mar, Nausea R11.0 and Gastroenteritis K52.9 [place] [id number] [place] [address] Mar, Gastroesophageal reflux disease without esophagitis K21.9 [place] [id number] [place] [address] Mar, Gastroesophageal reflux disease without esophagitis K21.9 [place] [id number] [place] [address] Mar, [place] [id number] [place] [address] Mar, [place] [id number] [place] [address] Mar, [place] [id number] [place] [address] Feb, Acute pain of right shoulder M25.511 and Muscle spasm M62.838 [place] [id number] [place] [address] Feb, Acute labyrinthitis, unspecified laterality H83.09 [place] [id number] [place] [address] December, [place] [id number] [place] [address] December, [place] [id number] [place] [address] December, Cannabis use disorder, moderate, dependence F12.20 ; Anxiety, generalized F41.1 ; Adjustment disorder with mixed anxiety and depressed mood F43.23 and Chronic post-traumatic stress disorder (PTSD) F43.12 [place] [id number] [place] [address] December, [place] [id number] [place] [address] December, [place] [id number] [place] [address] Nov, Acute nasopharyngitis J00 [place] [id number] [place] [address] Nov, Cannabis use disorder, moderate, dependence F12.20 ; Anxiety, generalized F41.1 ; Adjustment disorder with mixed anxiety and depressed mood F43.23 and Chronic post-traumatic stress disorder (PTSD) F43.12 [place] [address] [place] [address] Nov, Cannabis use disorder, moderate, dependence F12.20 ; Anxiety, generalized F41.1 ; Adjustment disorder with mixed anxiety and depressed mood F43.23 and Chronic post-traumatic stress disorder (PTSD) F43.12 [place] [address] [place] [address] Oct, Diarrhea, unspecified R19.7 ; Vomiting, unspecified R11.10 and Viral gastroenteritis A08.4 [place] [address] [place] [address] 29 Oct, 2016 Bipolar disorder, unspecified F31.9 ; Panic disorder with agoraphobia F40.01 ; Cannabis use disorder, moderate, dependence F12.20 ; Cigarette nicotine dependence with other nicotine-induced disorder F17.218 ; Anxiety, generalized F41.1 ; Post-traumatic stress disorder F43.10 and Adjustment disorder with mixed anxiety and depressed mood F43.23 [place] [id number] [place] [address] Oct, Bipolar disorder, unspecified F31.9 ; Chronic post-traumatic stress disorder (PTSD) F43.12 ; Panic disorder with agoraphobia F40.01 and Cannabis use disorder, moderate, dependence F12.20 [place] [id number] [place] [address] Oct, Bipolar disorder, unspecified F31.9 ; Panic disorder with agoraphobia F40.01 ; Cannabis use disorder, moderate, dependence F12.20 ; Cigarette nicotine dependence with other nicotine-induced disorder F17.218 ; Anxiety, generalized F41.1 ; Post-traumatic stress disorder F43.10 and Adjustment disorder with mixed anxiety and depressed mood F43.23 [place] [id number] [place] [address] Oct, Viral gastroenteritis A08.4 [place] [id number] [place] [address] 09 Oct, 2016 Anxiety, generalized F41.1 ; Post-traumatic stress disorder F43.10 ; Adjustment disorder with depressed mood F43.21 and Adjustment disorder with anxious mood F43.22 [place] [id number] [place] [address] 07 Oct, 2016 Panic disorder with agoraphobia F40.01 ; Cannabis use disorder, moderate, dependence F12.20 ; Bipolar disorder, unspecified F31.9 ; Cigarette nicotine dependence with other nicotine-induced disorder F17.218 ; Adjustment disorder with anxious mood F43.22 ; Anxiety, generalized F41.1 ; Post-traumatic stress disorder F43.10 and Cannabis dependence F12.20 [place] [id number] [place] [address] Oct, Bipolar disorder, unspecified F31.9 and Chronic post-traumatic stress disorder (PTSD) F43.12 [place] [id number] [place] [address] Oct, Bipolar disorder, unspecified F31.9 and Chronic post-traumatic stress disorder (PTSD) F43.12 [place] [id number] [place] [address] Sep, Bipolar disorder, unspecified F31.9 ; Panic disorder with agoraphobia F40.01 ; PTSD (post-traumatic stress disorder) F43.10 ; Cannabis use disorder, moderate, dependence F12.20 ; Cannabis dependence F12.20 and Anxiety, generalized F41.1 [id number] [place] [address] 22 Sep, 2016 Cannabis use disorder, moderate, dependence F12.20 ; Anxiety, generalized F41.1 and Adjustment disorder with mixed anxiety and depressed mood F43.23 [id number] [place] [address] 15 Sep, 2016 Bipolar disorder, unspecified F31.9 ; Panic disorder with agoraphobia F40.01 ; PTSD (post-traumatic stress disorder) F43.10 ; Cannabis use disorder, moderate, dependence F12.20 ; Cannabis dependence F12.20 and Anxiety, generalized F41.1 [place] [address] [place] [address] 10 Sep, 2016 Bipolar disorder, unspecified F31.9 ; Panic disorder with agoraphobia F40.01 ; PTSD (post-traumatic stress disorder) F43.10 ; Cannabis use disorder, moderate, dependence F12.20 ; Cannabis dependence F12.20 and Anxiety, generalized F41.1 [place] [id number] [place] [address] 08 Sep, 2016 Bipolar disorder, unspecified F31.9 ; Post-traumatic stress disorder F43.10 and Cannabis dependence F12.20 [id number] Sep, [place] [id number] [place] [address] Sep, Suicidal behavior without attempted self-injury R46.89 [place] [id number] [place] [address] Sep, [place] [id number] [place] [address] Sep, Cannabis use disorder, moderate, dependence F12.20 ; Panic disorder with agoraphobia F40.01 ; Bipolar disorder, unspecified F31.9 and Anxiety, generalized F41.1 [place] [id number] [place] [address] Sep, Bipolar disorder, unspecified F31.9 ; PTSD (post-traumatic stress disorder) F43.10 ; Panic disorder with agoraphobia F40.01 and Cannabis use disorder, moderate, dependence F12.20 [place] [id number] [place] [address] Sep, [place] [id number] [place] [address] Sep, PTSD (post-traumatic stress disorder) F43.10 ; Cannabis use disorder, moderate, dependence F12.20 and Suicidal risk R45.89 [place] [id number] [place] [address] Sep, [place] [address] [id number] Jul, Bipolar disorder, unspecified F31.9 ; PTSD (post-traumatic stress disorder) F43.10 and Panic disorder with agoraphobia F40.01 [place] [address] [address] Jul, Obstructive sleep apnea syndrome G47.33 ; Moderate persistent asthma without complication J45.40 and Cigarette nicotine dependence with other nicotine-induced disorder F17.218 [place] [address] [place] [address] 05 Jul, 2016 [facility] [id number] [place] [address] Jul, [facility] [id number] [place] [address] May, [facility] [id number] [place] [address] May, [place] [id number] [place] [address] May, [place] [id number] [place] [address] Apr, [facility] [id number] [place] [address] Apr, Bipolar disorder, unspecified F31.9 ; PTSD (post-traumatic stress disorder) F43.10 ; Panic disorder with agoraphobia F40.01 and Cannabis use disorder, moderate, dependence F12.20 [place] [id number] [place] [address] Mar, Uncomplicated asthma, unspecified asthma severity J45.909 [place] [id number] [place] [address] Mar, [facility] [id number] [place] [address] Mar, Moderate persistent asthma without complication J45.40 ; Gastroesophageal reflux disease without esophagitis K21.9 and Cigarette nicotine dependence with other nicotine-induced disorder F17.218 [facility] [address] [place] [address] Feb, [facility] [address] [id number] [address] Jan, Bipolar disorder, unspecified F31.9 ; PTSD (post-traumatic stress disorder) F43.10 ; Panic disorder with agoraphobia F40.01 and Cannabis use disorder, moderate, dependence F12.20 [facility] [address] [address] December, [facility] [id number] [place] [address] Nov, [facility] [id number] [place] [address] Nov, Bipolar disorder, unspecified F31.9 ; PTSD (post-traumatic stress disorder) F43.10 ; Panic disorder with agoraphobia F40.01 and Cannabis use disorder, moderate, dependence F12.20 [place] [address] [place] [address] Oct, [facility] [id number] [place] [address] Oct, [facility] [id number] [place] [phone] Sep, [facility] [id number] [place] [id number] Sep, Bipolar disorder, unspecified F31.9 ; PTSD (post-traumatic stress disorder) F43.10 ; Panic disorder with agoraphobia F40.01 and Cannabis use disorder, moderate, dependence F12.20 [facility] [id number] [place] [phone] Aug, [facility] [id number] [place] [phone] Aug, [facility] [id number] [address] Aug, Bipolar disorder, unspecified F31.9 ; PTSD (post-traumatic stress disorder) F43.10 ; Panic disorder with agoraphobia F40.01 and Cannabis use disorder, moderate, dependence F12.20 [facility] [id number] [place] [id number] Jul, [facility] [id number] [place] [id number] 24 Apr, 2015 GERD (gastroesophageal reflux disease) 530.81 and Internal hemorrhoids 455.0 [facility] [address] [address] Feb, Rectal bleeding 569.3 and Hemorrhoids 455.6 [facility] [address] [address] Jan, Sinusitis 473.9 and Otitis media 382.9 [facility] [address] [address] December, [facility] [address] [address] Nov, [facility] [id number] [place] [phone] Nov, [facility] [id number] [place] [phone] Oct, [facility] [id number] [place], [place] [address] Oct, [facility] [id number] [place] [address] Sep, [facility] [id number] [place] [address] Sep, [facility] [address] [address] Aug, [facility] [id number] [place] [address] Aug, [facility] [address] [address] Jul, [facility] [place] [facility] [address] [id number] [place] [address] Jul, [facility] [place] [facility] [address] [id number] [place] [address] Jul, [facility] [place] [facility] [address] [id number] [place] [address] Jul, [facility] [place] [facility] [address] [id number] [place] [address] Jul, [facility] [place] [facility] [address] [id number] [place] [address] Jul, [facility] [place] [facility] [address] [id number] [place] [address] Jul, [facility] [place] [facility] [address] [id number] [place] [address] Jul, [facility] [place] [facility] [address] [id number], [place] [address] Jun, [facility] [place] [facility] [address] [id number], [place] [address] Jun, [facility] [place] [facility] [address] [id number], [place] [address] Jun, [facility] [place] [facility] [address] [id number], [place] [address] Jun, [facility] [place] [facility] [address] [id number], [place] [address] May, [facility] [place] [facility] [address] [id number], [place] [address] May, [facility] [place] [facility] [address] [id number], [place] [address] May, [facility] [place] [facility] [address] [id number], [place] [address] May, [facility] [place] [facility] [address] [id number] [place] [address] 08 Apr, 2014 [facility] [place] [facility] [address] [id number] [place] [address] Apr, [facility] [place] [facility] [address] [id number] [place] [address] Apr, [facility] [place] [facility] [address] [id number] [place] [address] Apr, [facility] [place] [facility] [address] [id number] [place] [address] Mar, [facility] [place] [facility] [address] [id number] [place] [address] Mar, [facility] [place] [facility] [address] [id number] [place] [address] Mar, [facility] [place] [facility] [address] [id number] [place] [address] Mar, [facility] [place] [facility] [address] [id number] [place] [address] December, [facility] [place] [facility] [address] [id number] [place] [address] December, [facility] [place] [facility] [address] [id number] [place] [address] Nov, [facility] [place] [facility] [address] [id number] [place] [address] Nov, [facility] [place] [facility] [address] [id number] [place] [address] Sep, [facility] [place] [facility] [address] [id number] [place] [address] Sep, [facility] [place] [facility] [address] [id number] [place] [address] Sep, [facility] [place] [facility] [address] [id number] [place] [address] Sep, [facility] [place] [facility] [address] [id number] [place] [address] Aug, [facility] [place] [facility] [address] [id number] [place] [address] Jul, [facility] [place] [facility] [address] [id number] [place] [address] Jul, [facility] [place] [facility] [address] [id number] [place] [address] Jun, [facility] [place] [facility] [address] [id number] [place] [address] Jun, [facility] [place] [facility] [address] [id number] [place] [address] May, [facility] [place] [facility] [address] [id number] [place] [address] May, [facility] [place] [facility] [address] [id number] [place] [address] May, [facility] [place] [facility] [address] [id number] [place] [address] Apr, [facility] [place] [facility] [address] [id number] [place] [address] 16 Apr, 2013 [facility] [place] [facility] [address] [id number] [place] [address] Apr, [facility] [place] [facility] [address] [id number], [place] [address] Apr, [facility] [place] [facility] [address] [id number] [place] [address] Mar, [facility] [place] [facility] [address] [id number] [place] [address] Mar, [facility] [place] [facility] [address] [id number] [place] [address] December, [facility] [place] [facility] [address] [id number] [place] [address] 11 Oct, 2012 [facility] [address] [id number] [place] [address] 11 Oct, 2012 [facility] [place] [facility] [address] [id number] [place] [address] 10 Aug, 2012 [facility] [address] [id number] [place] [address] 17 Jul, 2012 [facility] [place] [facility] [address] [id number] [place] [address] 17 Jul, 2012 [facility] [place] [facility] [address] [id number] [place] [address] 13 Jul, 2012 [facility] [place] [facility] [address] [id number] [place] [address] 13 Jul, 2012 [facility] [address] [id number] [place] [address] 14 Jun, 2012 [facility] [place] [facility] [address] [id number] [place] [address] 14 Jun, 2012 [facility] [place] [facility] [address] [id number] [place] [address] 14 Mar, 2012 [facility] [place] [facility] [address] [id number] [place] [address] 16 Feb, 2012 [facility] [place] [facility] [address] [id number] [place] [address] 16 Feb, 2012 [facility] [place] [facility] [address] [id number] [place] [address] 15 Dec, 2011 [facility] [place] [facility] [address] [id number] [place] [address] 17 Nov, 2011 [facility] [place] [facility] [address] [id number] [place] [address] 23 Oct, 2011 [facility] [place] [facility] [address] [id number] [place] [address] 20 Oct, 2011 [facility] [place] [facility] [address] [id number] [place] [address] Sep, [facility] [address] [id number] [place] [address] Sep, [facility] [address] [id number] [place] [address] Aug, [facility] [address] [id number] [place] [address] Aug, [facility] [address] [id number] [place] [address] Jul, [facility] [address] [id number] [place] [address] Jul, [facility] [address] [id number] [place] [address] Jul, [facility] [address] [id number] [place] [address] Jun, [facility] [address] [id number] [place] [address] May, [facility] [address] [id number] [place] [address] Apr, [facility] [address] [id number] [place] [address] Feb, [facility] [address] [id number] [place] [address] Sep, [facility] [place] [facility] [address] [id number] [place] [address] Jul, [facility] [place] [facility] [address] [id number] [place] [address] Jul, [facility] [place] [facility] [address] [id number] [place] [address] Jul, [facility] [place] [facility] [address] [id number] [place] [address] Jul, [facility] [address] [facility] [id number] [place] [address] Jun, [facility] [address] [facility] [id number], [place] [address] Feb, [facility] [address] [facility] [id number], [place] [address] Jan, [facility] [address] [facility] [id number], [place] [address] Feb, [facility] [address] [facility] [id number], [place] [address] Jul, IMMUNIZATIONS No Known Immunizations SOCIAL HISTORY Never Assessed REASON FOR VISIT EMR-[facility] PLAN OF CARE VITAL SIGNS MEDICATIONS Medication Instructions Dosage Frequency Start Date End Date Duration Status Singulair 10 mg 1 tablet by Oral route 1 time per day Sep, Active Ibuprofen 800 mg take 1 tablet (800 mg) by oral route 3 times per day with food Sep, Active cyclobenzaprine 10 mg 1 tablet by Oral route 3 times per day PRN Oct, Active Permethrin 5 % 1 Application by Topical route 1 time per day May repeat in 7 days if needed Apr, Active RESULTS No Results PROCEDURES No [...]
--- OUTSIDE RECORDS SUMMARY | 2019-02-25 21:09 | XMS REPORT ---
Author Author Migration, Doctor Organization [facility] Address Unknown Phone Unavailable Care Team Providers Care Bell Attendant Name Role Phone Migration, Doctor Unavailable Unavailable PROBLEMS Type Condition ICD9-CM Code ZHC91-IE Code Onset Dates Condition Status SNOMED Code Problem Panic disorder with agoraphobia F40.01 Active 94722819 Problem Bipolar disorder, unspecified F31.9 Active 01559970 Problem Gastroesophageal reflux disease without esophagitis K21.9 Active 919754862 Problem Cannabis use disorder, moderate, dependence F12.20 Active 89765112 Problem Moderate persistent asthma without complication J45.40 Active 608413453 Problem Cigarette nicotine dependence with other nicotine-induced disorder F17.218 Active 01398513 Problem Cannabis dependence F12.20 Active 39334930 Problem Post-traumatic stress disorder F43.10 Active 84569002 Problem Chronic post-traumatic stress disorder (PTSD) F43.12 Active 615587601 Problem Seizures R56.9 Active 59085851 Problem Anxiety, generalized F41.1 Active 41261788 Problem Moderate persistent asthma, uncomplicated J45.40 Active 786085283 Problem Obstructive sleep apnea syndrome G47.33 Active 31285878 Problem Adjustment disorder with mixed anxiety and depressed mood F43.23 Active 73665138 Problem Adjustment disorder with anxious mood F43.22 Active 28348960 Problem Adjustment disorder with depressed mood F43.21 Active 90716382 Problem Other chronic pain G89.29 Active 82362514 ALLERGIES No Information ENCOUNTERS Encounter Location Date Diagnosis [facility] [address] [facility] [id number] [address] Jan, [facility] [address] [address] December, [facility] [address] [address] Nov, [facility] [id number], [place] [address] Nov, Cannabis use disorder, moderate, dependence F12.20 [facility] [id number] [place] [address] Nov, Moderate persistent asthma, uncomplicated J45.40 [facility] [id number] [place] [address] Nov, [facility] [id number] [place] [address] Nov, Moderate persistent asthma, uncomplicated J45.40 [facility] [id number] [place] [address] Nov, Bipolar disorder, unspecified F31.9 ; Panic disorder with agoraphobia F40.01 ; Chronic post-traumatic stress disorder (PTSD) F43.12 and Cannabis use disorder, moderate, dependence F12.20 [facility] [id number] [place] [address] Nov, Moderate persistent asthma, uncomplicated J45.40 [facility] [id number] [place] [address] Nov, Pleurisy R09.1 and Bronchitis J40 [facility] [id number] [place] [address] Oct, Gastroesophageal reflux disease without esophagitis K21.9 [facility] [id number] [place] [address] Oct, [facility] [id number] [place] [address] Oct, [facility] [id number] [place] [address] Oct, [facility] [address] [address] Oct, [facility] [id number] [place] [address] Oct, Pneumonia of left lower lobe due to infectious organism J18.1 [facility] [id number] [place] [address] Oct, Pleuritis R09.1 [place] [address] [address] Oct, [place] [place] [address] [address] Oct, Bipolar disorder, unspecified F31.9 ; Panic disorder with agoraphobia F40.01 ; Chronic post-traumatic stress disorder (PTSD) F43.12 and Cannabis use disorder, moderate, dependence F12.20 [facility] [address] [address] Sep, [place] [address] [address] Sep, Rib pain R07.81 and Eustachian tube dysfunction H69.80 [facility] [address] [address] Sep, [facility] [id number] [place] [address] Sep, [facility] [id number] [place] [address] Aug, [facility] [id number] [place] [address] Aug, Bipolar disorder, unspecified F31.9 ; Chronic post-traumatic stress disorder (PTSD) F43.12 ; Cannabis use disorder, moderate, dependence F12.20 and Psychogenic nonepileptic seizure F44.5 [place] [place] [address] [address] Aug, [place] [address] [address] Aug, [place] [place] [address] [address] Jul, [facility] [id number] [place] [address] Jul, Bipolar disorder, unspecified F31.9 ; Chronic post-traumatic stress disorder (PTSD) F43.12 ; Panic disorder with agoraphobia F40.01 and Cannabis use disorder, moderate, dependence F12.20 [facility] [id number] [place] [address] Jul, [facility] [id number] [place] [address] Jun, [facility] [id number] [place] [address] Jun, [facility] [id number] [place] [address] Jun, [facility] [id number] [place] [address] Jun, Seizures R56.9 [facility] [id number] [place] [address] Jun, [facility] [id number] [place] [address] May, [facility] [id number] [place] [address] May, [facility] [id number] [place] [address] May, [facility] [id number] [place] [address] May, [facility] [id number] [place] [address] May, [facility] [id number] [place] [address] May, [facility] [id number] [place] [address] May, [facility] [address], [place] [address] May, Seizures R56.9 [facility] [id number] [place] [address] May, [facility] [id number] [place] [address] Apr, [facility] [id number] [place] [address] Apr, [facility] [id number] [place] [address] Apr, [facility] [id number] [place] [address] Apr, [facility] [id number] [place] [address] Apr, Bipolar disorder, unspecified F31.9 ; Panic disorder with agoraphobia F40.01 and Cannabis use disorder, moderate, dependence F12.20 [facility] [address], [place] [address] Mar, [facility] [id number] [place] [address] Mar, [facility] [id number] [place] [address] Jan, Low back pain M54.5 ; Moderate persistent asthma without complication J45.40 and Other chronic pain G89.29 [facility] [address], [place] [address] Jan, Moderate persistent asthma without complication J45.40 ; Low back pain M54.5 ; Other chronic pain G89.29 ; Gastroesophageal reflux disease without esophagitis K21.9 and Cigarette nicotine dependence with other nicotine- induced disorder F17.218 [facility] [address] [place] [address] December, Bipolar disorder, unspecified F31.9 ; Panic disorder with agoraphobia F40.01 ; Cannabis use disorder, moderate, dependence F12.20 and Chronic post- traumatic stress disorder (PTSD) F43.12 [facility] [address] [place] [address] December, [facility] [id number] [place] [address] December, [facility] [id number] [place] [address] Nov, [facility] [id number] [place] [address] Oct, Bipolar disorder, unspecified F31.9 ; Chronic post-traumatic stress disorder (PTSD) F43.12 ; Panic disorder with agoraphobia F40.01 and Cannabis use disorder, moderate, dependence F12.20 [facility] [id number] [place] [address] Sep, [facility] [id number] [place] [address] Sep, [facility] [id number] [place] [address] Aug, [facility] [id number] [place] [address] Aug, Cannabis use disorder, moderate, dependence F12.20 ; Panic disorder with agoraphobia F40.01 and Bipolar affective disorder, currently depressed, moderate F31.32 [facility] [id number] [place] [address] May, Diarrhea of presumed infectious origin A09 and Nausea and vomiting, intractability of vomiting not specified, unspecified vomiting type R11.2 [facility] [id number] [place] [address] Apr, [facility] [id number] [place] [address] Mar, Nausea R11.0 and Gastroenteritis K52.9 [facility] [id number] [place] [address] Mar, Gastroesophageal reflux disease without esophagitis K21.9 [facility] [id number] [place] [address] Mar, Gastroesophageal reflux disease without esophagitis K21.9 [facility] [address] [address] Mar, [place] [address] [address] Mar, [facility] [address] [address] Mar, [facility] [id number] [place] [address] Feb, Acute pain of right shoulder M25.511 and Muscle spasm M62.838 [facility] [id number] [place] [address] Feb, Acute labyrinthitis, unspecified laterality H83.09 [facility] [id number] [place] [address] December, [facility] [id number] [place] [address] December, [facility] [id number] [place] [address] December, Cannabis use disorder, moderate, dependence F12.20 ; Anxiety, generalized F41.1 ; Adjustment disorder with mixed anxiety and depressed mood F43.23 and Chronic post-traumatic stress disorder (PTSD) F43.12 [facility] [place] [id number] [place] [address] December, [facility] [id number] [place] [address] December, [place] [address], [place] [address] Nov, Acute nasopharyngitis J00 [place] [id number] [place] [address] Nov, Cannabis use disorder, moderate, dependence F12.20 ; Anxiety, generalized F41.1 ; Adjustment disorder with mixed anxiety and depressed mood F43.23 and Chronic post-traumatic stress disorder (PTSD) F43.12 [facility] [id number] [place] [address] Nov, Cannabis use disorder, moderate, dependence F12.20 ; Anxiety, generalized F41.1 ; Adjustment disorder with mixed anxiety and depressed mood F43.23 and Chronic post-traumatic stress disorder (PTSD) F43.12 [facility] [id number] [place] [address] Oct, Diarrhea, unspecified R19.7 ; Vomiting, unspecified R11.10 and Viral gastroenteritis A08.4 [facility] [place] [address] [place] [address] Oct, Bipolar disorder, unspecified F31.9 ; Panic disorder with agoraphobia F40.01 ; Cannabis use disorder, moderate, dependence F12.20 ; Cigarette nicotine dependence with other nicotine-induced disorder F17.218 ; Anxiety, generalized F41.1 ; Post-traumatic stress disorder F43.10 and Adjustment disorder with mixed anxiety and depressed mood F43.23 [facility] [address], [place] [address] Oct, Bipolar disorder, unspecified F31.9 ; Chronic post-traumatic stress disorder (PTSD) F43.12 ; Panic disorder with agoraphobia F40.01 and Cannabis use disorder, moderate, dependence F12.20 [facility] [address], [place] [address] Oct, Bipolar disorder, unspecified F31.9 ; Panic disorder with agoraphobia F40.01 ; Cannabis use disorder, moderate, dependence F12.20 ; Cigarette nicotine dependence with other nicotine-induced disorder F17.218 ; Anxiety, generalized F41.1 ; Post-traumatic stress disorder F43.10 and Adjustment disorder with mixed anxiety and depressed mood F43.23 [facility] [address] [place] [address] 14 Oct, 2016 Viral gastroenteritis A08.4 [facility] [id number] [place] [address] Oct, Anxiety, generalized F41.1 ; Post-traumatic stress disorder F43.10 ; Adjustment disorder with depressed mood F43.21 and Adjustment disorder with anxious mood F43.22 [facility] [id number] [place] [address] Oct, Panic disorder with agoraphobia F40.01 ; Cannabis use disorder, moderate, dependence F12.20 ; Bipolar disorder, unspecified F31.9 ; Cigarette nicotine dependence with other nicotine-induced disorder F17.218 ; Adjustment disorder with anxious mood F43.22 ; Anxiety, generalized F41.1 ; Post-traumatic stress disorder F43.10 and Cannabis dependence F12.20 [facility] [id number] [place] [address] Oct, Bipolar disorder, unspecified F31.9 and Chronic post-traumatic stress disorder (PTSD) F43.12 [facility] [id number] [place] [address] Oct, Bipolar disorder, unspecified F31.9 and Chronic post-traumatic stress disorder (PTSD) F43.12 [facility] [address] [place] [address] Sep, Bipolar disorder, unspecified F31.9 ; Panic disorder with agoraphobia F40.01 ; PTSD (post-traumatic stress disorder) F43.10 ; Cannabis use disorder, moderate, dependence F12.20 ; Cannabis dependence F12.20 and Anxiety, generalized F41.1 [facility] [place] [id number] [place] [address] Sep, Cannabis use disorder, moderate, dependence F12.20 ; Anxiety, generalized F41.1 and Adjustment disorder with mixed anxiety and depressed mood F43.23 [place] [id number] [place] [address] 15 Sep, 2016 Bipolar disorder, unspecified F31.9 ; Panic disorder with agoraphobia F40.01 ; PTSD (post-traumatic stress disorder) F43.10 ; Cannabis use disorder, moderate, dependence F12.20 ; Cannabis dependence F12.20 and Anxiety, generalized F41.1 [facility] [id number] [place] [address] 10 Sep, 2016 Bipolar disorder, unspecified F31.9 ; Panic disorder with agoraphobia F40.01 ; PTSD (post-traumatic stress disorder) F43.10 ; Cannabis use disorder, moderate, dependence F12.20 ; Cannabis dependence F12.20 and Anxiety, generalized F41.1 [place] [address] Sep, Bipolar disorder, unspecified F31.9 ; Post-traumatic stress disorder F43.10 and Cannabis dependence [place]12[place]20 [place] [address] Sep, [place] [address] Sep, Suicidal behavior without attempted self-injury R46.89 [place] [id number] [place] [address] Sep, [place] [id number] [place] [address] 07 Sep, 2016 Cannabis use disorder, moderate, dependence F12.20 ; Panic disorder with agoraphobia F40.01 ; Bipolar disorder, unspecified F31.9 and Anxiety, generalized F41.1 [place] [id number] [place], [place] [address] 07 Sep, 2016 Bipolar disorder, unspecified F31.9 ; PTSD (post-traumatic stress disorder) F43.10 ; Panic disorder with agoraphobia F40.01 and Cannabis use disorder, moderate, dependence F12.20 [facility] [id number] [place] [address] Sep, [place] [id number] [place] [address] Sep, PTSD (post-traumatic stress disorder) F43.10 ; Cannabis use disorder, moderate, dependence F12.20 and Suicidal risk R45.89 [facility] [id number] [place] [address] Sep, [place] [facility] [address] [address] Jul, Bipolar disorder, unspecified F31.9 ; PTSD (post-traumatic stress disorder) F43.10 and Panic disorder with agoraphobia F40.01 [place] [id number] [place] [address] Jul, Obstructive sleep apnea syndrome G47.33 ; Moderate persistent asthma without complication J45.40 and Cigarette nicotine dependence with other nicotine-induced disorder F17.218 [facility] [id number] [place] [address] Jul, [facility] [id number] [place] [address] Jul, [facility] [id number] [place] [address] May, [facility] [id number] [place] [address] May, [facility] [id number] [place] [address] May, [facility] [id number] [place] [address] Apr, [facility] [id number] [place] [address] Apr, Bipolar disorder, unspecified F31.9 ; PTSD (post-traumatic stress disorder) F43.10 ; Panic disorder with agoraphobia F40.01 and Cannabis use disorder, moderate, dependence F12.20 [facility] [place] [address] [place] [address] Mar, Uncomplicated asthma, unspecified asthma severity J45.909 [place] [id number] [place] [address] Mar, [facility] [id number] [place] [address] Mar, Moderate persistent asthma without complication J45.40 ; Gastroesophageal reflux disease without esophagitis K21.9 and Cigarette nicotine dependence with other nicotine-induced disorder F17.218 [facility] [id number] [place] [address] Feb, [place] [id number] [place] [address] Jan, Bipolar disorder, unspecified F31.9 ; PTSD (post-traumatic stress disorder) F43.10 ; Panic disorder with agoraphobia F40.01 and Cannabis use disorder, moderate, dependence F12.20 [facility] [place] [address] [place] [address] December, [facility] [id number] [place] [address] Nov, [facility] [id number] [place] [address] Nov, Bipolar disorder, unspecified F31.9 ; PTSD (post-traumatic stress disorder) F43.10 ; Panic disorder with agoraphobia F40.01 and Cannabis use disorder, moderate, dependence F12.20 [facility] [address] [place] [address] Oct, [place] [id number] [place] [address] Oct, [facility] [address] [place] [address] Sep, [facility] [id number] [place] [address] Sep, Bipolar disorder, unspecified F31.9 ; PTSD (post-traumatic stress disorder) F43.10 ; Panic disorder with agoraphobia F40.01 and Cannabis use disorder, moderate, dependence F12.20 [facility] [id number] [place] [address] Aug, [place] [id number] [place] [address] Aug, [facility] [id number] [place] [address] Aug, Bipolar disorder, unspecified F31.9 ; PTSD (post-traumatic stress disorder) F43.10 ; Panic disorder with agoraphobia F40.01 and Cannabis use disorder, moderate, dependence F12.20 [place] [id number] [place] [address] Jul, [place] [id number] [place] [address] Apr, GERD (gastroesophageal reflux disease) 530.81 and Internal hemorrhoids 455.0 [place] [id number] [place] [address] Feb, Rectal bleeding 569.3 and Hemorrhoids 455.6 [facility] [id number] [place] [address] Jan, Sinusitis 473.9 and Otitis media 382.9 [place] [id number] [place] [address] December, [place] [id number] [place] [address] Nov, [place] [id number] [place] [address] 13 Nov, 2014 [facility] [address] [id number] [place] [address] Oct, [facility] [place] [facility] [address] [id number] [place] [address] Oct, 2014 [facility] [address] [id number] [place] [address] Sep, [facility] [place] [facility] [address] [id number] [place] [address] Sep, [facility] [address] [id number] [place] [address] Aug, [facility] [address] [id number] [place] [address] Aug, [facility] [address] [id number] [place] [address] Jul, [facility] [address] [id number] [place] [address] Jul, [facility] [place] [facility] [address] [id number] [place] [address] Jul, [facility] [address] [id number] [place] [address] Jul, [facility] [place] [facility] [address] [id number] [place] [address] Jul, [facility] [place] [facility] [address] [id number] [place] [address] Jul, [facility] [place] [facility] [address] [id number] [place] [address] Jul, [facility] [place] [facility] [address] [id number] [place] [address] Jul, [facility] [place] [facility] [address] [id number] [place] [address] Jun, [facility] [place] [facility] [address] [id number] [place] [address] Jun, [facility] [place] [facility] [address] [id number] [place] [address] Jun, [facility] [place] [facility] [address] [id number] [place] [address] Jun, [facility] [place] [facility] [address] [id number] [place] [address] May, [facility] [place] [facility] [address] [id number] [place] [address] May, [facility] [place] [facility] [address] [id number] [place] [address] May, [facility] [place] [facility] [address] [id number] [place] [address] May, [facility] [place] [facility] [address] [id number] [place] [address] Apr, [facility] [place] [facility] [address] [id number] [place] [address] Apr, [facility] [place] [facility] [address] [id number], [place] [address] Apr, [facility] [place] [facility] [address] [id number], [place] [address] Apr, [facility] [place] [facility] [address] [id number], [place] [address] Mar, [facility] [place] [facility] [address] [id number] [place] [address] Mar, [facility] [place] [facility] [address] [id number] [place] [address] Mar, [facility] [place] [facility] [address] [id number], [place] [address] Mar, [facility] [place] [facility] [address] [id number], [place] [address] December, [facility] [place] [facility] [address] [id number] [place] [address] December, [facility] [place] [facility] [address] [id number] [place] [address] Nov, [facility] [place] [facility] [address] [facility] [id number] [place] [address] Nov, [facility] [place] [facility] [address] [id number] [place] [address] Sep, [facility] [place] [facility] [address] [id number] [place] [address] Sep, [facility] [place] [facility] [address] [facility] [id number] [place] [address] Sep, [facility] [place] [facility] [address] [facility] [id number] [place] [address] Sep, [facility] [place] [facility] [address] [facility] [id number] [place] [address] Aug, [facility] [place] [facility] [id number] [place] [address] Jul, [facility] [place] [facility] [address] [facility] [id number] [place] [address] Jul, [facility] [place] [facility] [address] [facility] [id number] [place] [address] Jun, [facility] [place] [facility] [address] [facility] [id number], [place] [address] Jun, [facility] [place] [facility] [address] [facility] [id number] [place] [address] May, [facility] [place] [facility] [address] [facility] [id number] [place] [address] May, [facility] [place] [facility] [address] [facility] [id number], [place] [address] May, [facility] [place] [facility] [address] [id number] [place] [address] 17 Apr, 2013 [facility] [address] [id number] [place] [address] 16 Apr, 2013 [facility] [address] [id number] [place] [address] 09 Apr, 2013 [facility] [address] [id number] [place] [address] Apr, [facility] [address] [id number] [place] [address] Mar, [facility] [address] [id number] [place] [address] Mar, [facility] [address] [id number] [place] [address] December, [facility] [address] [id number] [place] [address] Oct, [facility] [address] [id number] [place] [address] Oct, [facility] [address] [id number] [place] [address] Aug, [facility] [address] [id number] [place] [address] 17 Jul, 2012 [facility] [address] [id number] [place] [address] 17 Jul, 2012 [facility] [address] [id number] [place] [address] 13 Jul, 2012 [facility] [place] [facility] [address] [id number] [place] [address] 13 Jul, 2012 [facility] [address] [id number] [place] [address] 14 Jun, 2012 [facility] [address] [id number] [place] [address] 14 Jun, 2012 [facility] [address] [id number] [place] [address] 14 Mar, 2012 [facility] [place] [facility] [address] [id number] [place] [address] 16 Feb, 2012 [facility] [place] [facility] [address] [id number] [place] [address] Feb, [facility] [place] [facility] [address] [id number] [place] [address] December, [facility] [place] [facility] [address] [id number] [place] [address] Nov, [facility] [place] [facility] [address] [id number] [place] [address] Oct, [facility] [place] [facility] [address] [id number] [place] [address] Oct, [facility] [place] [facility] [address] [id number] [place] [address] Sep, [facility] [place] [facility] [address] [id number] [place] [address] Sep, [facility] [place] [facility] [address] [id number] [place] [address] Aug, [facility] [place] [facility] [address] [id number] [place] [address] Aug, [facility] [place] [facility] [address] [id number] [place] [address] Jul, [facility] [place] [facility] [address] [id number] [place] [address] Jul, [facility] [place] [facility] [address] [id number] [place] [address] Jul, [facility] [place] [facility] [address] [id number] [place] [address] Jun, [facility] [place] [facility] [id number], [place] [address] May, [facility] [id number], [place] [address] Apr, [facility] [id number], [place] [address] Feb, [facility] [id number], [place] [address] Sep, [facility] [id number], [place] [address] Jul, [facility] [id number], [place] [address] Jul, [facility] [id number], [place] [address] Jul, [facility] [id number], [place] [address] Jul, [facility] [id number], [place] [address] Jun, [facility] [id number], [place] [address] Feb, [facility] [address] [id number], [place] [address] Jan, [facility] [address] [id number], [place] [address] Feb, [facility] [address] [id number], [place] [address] Jul, IMMUNIZATIONS No Known Immunizations SOCIAL HISTORY Never Assessed REASON FOR VISIT [place] [place] VITAL SIGNS MEDICATIONS Unknown [...]
--- OUTSIDE RECORDS SUMMARY | 2019-02-25 21:10 | XMS REPORT ---
Author Author Migration, Doctor Organization [facility] Address Unknown Phone Unavailable Care Team Providers Care Hemodialysis Technician Name Role Phone Migration, Doctor Unavailable Unavailable PROBLEMS Type Condition ICD9-CM Code QBL61-QH Code Onset Dates Condition Status SNOMED Code Problem Panic disorder with agoraphobia F40.01 Active 51297184 Problem Bipolar disorder, unspecified F31.9 Active 67081032 Problem Gastroesophageal reflux disease without esophagitis K21.9 Active 001406980 Problem Cannabis use disorder, moderate, dependence F12.20 Active 82328256 Problem Moderate persistent asthma without complication J45.40 Active 720626962 Problem Cigarette nicotine dependence with other nicotine-induced disorder F17.218 Active 07605924 Problem Cannabis dependence F12.20 Active 10000852 Problem Post-traumatic stress disorder F43.10 Active 24879296 Problem Chronic post-traumatic stress disorder (PTSD) F43.12 Active 450714180 Problem Seizures R56.9 Active 71912368 Problem Anxiety, generalized F41.1 Active 04045690 Problem Moderate persistent asthma, uncomplicated J45.40 Active 914762028 Problem Obstructive sleep apnea syndrome G47.33 Active 80871776 Problem Adjustment disorder with mixed anxiety and depressed mood F43.23 Active 65071379 Problem Adjustment disorder with anxious mood F43.22 Active 98063491 Problem Adjustment disorder with depressed mood F43.21 Active 23277755 Problem Other chronic pain G89.29 Active 57874122 ALLERGIES No Information ENCOUNTERS Encounter Location Date Diagnosis [facility] [address] [facility] [id number] [address] Jan, [facility] [address], [place] [address] December, [facility] [address], [place] [address] Nov, [facility] [id number] [address] Nov, Cannabis use disorder, moderate, dependence F12.20 [facility] [id number] [place] [address] Nov, Moderate persistent asthma, uncomplicated J45.40 [facility] [id number] [place] [address] Nov, [facility] [id number] [place] [address] Nov, Moderate persistent asthma, uncomplicated J45.40 [facility] [id number] [place] [address] Nov, Bipolar disorder, unspecified F31.9 ; Panic disorder with agoraphobia F40.01 ; Chronic post-traumatic stress disorder (PTSD) F43.12 and Cannabis use disorder, moderate, dependence F12.20 [place] [id number] [place] [address] Nov, Moderate persistent asthma, uncomplicated J45.40 [facility] [id number] [place] [address] Nov, Pleurisy R09.1 and Bronchitis J40 [place] [id number] [place] [address] Oct, Gastroesophageal reflux disease without esophagitis K21.9 [facility] [id number] [place] [address] Oct, [facility] [id number] [place] [address] Oct, [facility] [id number] [place] [address] Oct, [facility] [address] [address] Oct, [facility] [id number] [place] [address] Oct, Pneumonia of left lower lobe due to infectious organism J18.1 [place] [id number] [place] [address] Oct, Pleuritis R09.1 [place] [address] [address] Oct, [place] [address] [address] Oct, Bipolar disorder, unspecified F31.9 ; Panic disorder with agoraphobia F40.01 ; Chronic post-traumatic stress disorder (PTSD) F43.12 and Cannabis use disorder, moderate, dependence F12.20 [place] [address] [address] Sep, [place] [address] [address] Sep, Rib pain R07.81 and Eustachian tube dysfunction H69.80 [place] [address] [address] Sep, [place] [id number] [place] [address] Sep, [place] [id number] [place] [address] Aug, [place] [id number] [place] [address] Aug, Bipolar disorder, unspecified F31.9 ; Chronic post-traumatic stress disorder (PTSD) F43.12 ; Cannabis use disorder, moderate, dependence F12.20 and Psychogenic nonepileptic seizure F44.5 [place] [address] [address] Aug, [place] [address] [address] Aug, [place] [address] [address] Jul, [facility] [id number] [place] [address] Jul, Bipolar disorder, unspecified F31.9 ; Chronic post-traumatic stress disorder (PTSD) F43.12 ; Panic disorder with agoraphobia F40.01 and Cannabis use disorder, moderate, dependence F12.20 [facility] [id number] [place] [address] Jul, [facility] [id number] [place] [address] Jun, [facility] [id number] [place] [address] Jun, [facility] [id number] [place] [address] Jun, [facility] [id number] [place] [address] Jun, Seizures R56.9 [facility] [id number] [place] [address] Jun, [facility] [id number] [place] [address] May, [facility] [id number] [place] [address] May, [facility] [id number] [place] [address] May, [facility] [id number] [place] [address] May, [facility] [id number] [place] [address] May, [facility] [id number] [place] [address] May, [facility] [id number] [place] [address] May, [facility] [address], [place] [address] May, Seizures R56.9 [facility] [id number] [place] [address] May, [facility] [id number] [place] [address] Apr, [facility] [id number] [place] [address] Apr, [facility] [id number] [place] [address] Apr, [facility] [id number] [place] [address] Apr, [facility] [id number] [place] [address] Apr, Bipolar disorder, unspecified F31.9 ; Panic disorder with agoraphobia F40.01 and Cannabis use disorder, moderate, dependence F12.20 [facility] [address], [place] [address] Mar, [facility] [id number] [place] [address] Mar, [facility] [id number] [place] [address] Jan, Low back pain M54.5 ; Moderate persistent asthma without complication J45.40 and Other chronic pain G89.29 [facility] [address], [place] [address] Jan, Moderate persistent asthma without complication J45.40 ; Low back pain M54.5 ; Other chronic pain G89.29 ; Gastroesophageal reflux disease without esophagitis K21.9 and Cigarette nicotine dependence with other nicotine- induced disorder F17.218 [facility] [address] [place] [address] December, Bipolar disorder, unspecified F31.9 ; Panic disorder with agoraphobia F40.01 ; Cannabis use disorder, moderate, dependence F12.20 and Chronic post- traumatic stress disorder (PTSD) F43.12 [place] [address] [place] [address] December, [place] [id number] [place] [address] December, [place] [id number] [place] [address] Nov, [place] [id number] [place] [address] Oct, Bipolar disorder, unspecified F31.9 ; Chronic post-traumatic stress disorder (PTSD) F43.12 ; Panic disorder with agoraphobia F40.01 and Cannabis use disorder, moderate, dependence F12.20 [place] [id number] [place] [address] Sep, [place] [id number] [place] [address] Sep, [place] [id number] [place] [address] Aug, [facility] [id number] [place] [address] Aug, Cannabis use disorder, moderate, dependence F12.20 ; Panic disorder with agoraphobia F40.01 and Bipolar affective disorder, currently depressed, moderate F31.32 [place] [id number] [place] [address] May, Diarrhea of presumed infectious origin A09 and Nausea and vomiting, intractability of vomiting not specified, unspecified vomiting type R11.2 [place] [id number] [place] [address] Apr, [place] [id number] [place] [address] Mar, Nausea R11.0 and Gastroenteritis K52.9 [facility] [id number] [place] [address] Mar, Gastroesophageal reflux disease without esophagitis K21.9 [facility] [id number] [place] [address] Mar, Gastroesophageal reflux disease without esophagitis K21.9 [facility] [address] [address] Mar, [place] [address] [address] Mar, [place] [address] [address] Mar, [place] [id number] [place] [address] Feb, Acute pain of right shoulder M25.511 and Muscle spasm M62.838 [place] [id number] [place] [address] Feb, Acute labyrinthitis, unspecified laterality H83.09 [place] [id number] [place] [address] December, [place] [id number] [place] [address] December, [place] [id number] [place] [address] December, Cannabis use disorder, moderate, dependence F12.20 ; Anxiety, generalized F41.1 ; Adjustment disorder with mixed anxiety and depressed mood F43.23 and Chronic post-traumatic stress disorder (PTSD) F43.12 [place] [id number] [place] [address] December, [place] [id number] [place] [address] December, [place] [address], [place] [address] Nov, Acute nasopharyngitis J00 [place] [id number] [place] [address] Nov, Cannabis use disorder, moderate, dependence F12.20 ; Anxiety, generalized F41.1 ; Adjustment disorder with mixed anxiety and depressed mood F43.23 and Chronic post-traumatic stress disorder (PTSD) F43.12 [place] [id number] [place] [address] Nov, Cannabis use disorder, moderate, dependence F12.20 ; Anxiety, generalized F41.1 ; Adjustment disorder with mixed anxiety and depressed mood F43.23 and Chronic post-traumatic stress disorder (PTSD) F43.12 [place] [id number] [place] [address] Oct, Diarrhea, unspecified R19.7 ; Vomiting, unspecified R11.10 and Viral gastroenteritis A08.4 [place] [address] [place] [address] Oct, Bipolar disorder, unspecified F31.9 ; Panic disorder with agoraphobia F40.01 ; Cannabis use disorder, moderate, dependence F12.20 ; Cigarette nicotine dependence with other nicotine-induced disorder F17.218 ; Anxiety, generalized F41.1 ; Post-traumatic stress disorder F43.10 and Adjustment disorder with mixed anxiety and depressed mood F43.23 [place] [address], [place] [address] Oct, Bipolar disorder, unspecified F31.9 ; Chronic post-traumatic stress disorder (PTSD) F43.12 ; Panic disorder with agoraphobia F40.01 and Cannabis use disorder, moderate, dependence F12.20 [place] [address], [place] [address] Oct, Bipolar disorder, unspecified F31.9 ; Panic disorder with agoraphobia F40.01 ; Cannabis use disorder, moderate, dependence F12.20 ; Cigarette nicotine dependence with other nicotine-induced disorder F17.218 ; Anxiety, generalized F41.1 ; Post-traumatic stress disorder F43.10 and Adjustment disorder with mixed anxiety and depressed mood F43.23 [place] [address] [place] [address] 14 Oct, 2016 Viral gastroenteritis A08.4 [place] [id number] [place] [address] Oct, Anxiety, generalized F41.1 ; Post-traumatic stress disorder F43.10 ; Adjustment disorder with depressed mood F43.21 and Adjustment disorder with anxious mood F43.22 [place] [id number] [place] [address] Oct, Panic disorder with agoraphobia F40.01 ; Cannabis use disorder, moderate, dependence F12.20 ; Bipolar disorder, unspecified F31.9 ; Cigarette nicotine dependence with other nicotine-induced disorder F17.218 ; Adjustment disorder with anxious mood F43.22 ; Anxiety, generalized F41.1 ; Post-traumatic stress disorder F43.10 and Cannabis dependence F12.20 [place] [id number] [place] [address] Oct, Bipolar disorder, unspecified F31.9 and Chronic post-traumatic stress disorder (PTSD) F43.12 [place] [id number] [place] [address] Oct, Bipolar disorder, unspecified F31.9 and Chronic post-traumatic stress disorder (PTSD) F43.12 [place] [address] [place] [address] Sep, Bipolar disorder, unspecified F31.9 ; Panic disorder with agoraphobia F40.01 ; PTSD (post-traumatic stress disorder) F43.10 ; Cannabis use disorder, moderate, dependence F12.20 ; Cannabis dependence F12.20 and Anxiety, generalized F41.1 [place] [id number] [place] [address] Sep, Cannabis use disorder, moderate, dependence F12.20 ; Anxiety, generalized F41.1 and Adjustment disorder with mixed anxiety and depressed mood F43.23 [address] [id number] [place] [address] 15 Sep, 2016 Bipolar disorder, unspecified F31.9 ; Panic disorder with agoraphobia F40.01 ; PTSD (post-traumatic stress disorder) F43.10 ; Cannabis use disorder, moderate, dependence F12.20 ; Cannabis dependence F12.20 and Anxiety, generalized F41.1 [place] [id number] [place] [address] 10 Sep, 2016 Bipolar disorder, unspecified F31.9 ; Panic disorder with agoraphobia F40.01 ; PTSD (post-traumatic stress disorder) F43.10 ; Cannabis use disorder, moderate, dependence F12.20 ; Cannabis dependence F12.20 and Anxiety, generalized F41.1 [place] [address] Sep, Bipolar disorder, unspecified F31.9 ; Post-traumatic stress disorder F43.10 and Cannabis dependence [place]12[place]20 [place] [address] Sep, [place] [address] Sep, Suicidal behavior without attempted self-injury R46.89 [address] [id number] [place] [address] Sep, [address] [id number] [place] [address] 07 Sep, 2016 Cannabis use disorder, moderate, dependence F12.20 ; Panic disorder with agoraphobia F40.01 ; Bipolar disorder, unspecified F31.9 and Anxiety, generalized F41.1 [address] [id number] [place] [address] 07 Sep, 2016 Bipolar disorder, unspecified F31.9 ; PTSD (post-traumatic stress disorder) F43.10 ; Panic disorder with agoraphobia F40.01 and Cannabis use disorder, moderate, dependence F12.20 [place] [id number] [place] [address] Sep, [place] [id number] [place] [address] Sep, PTSD (post-traumatic stress disorder) F43.10 ; Cannabis use disorder, moderate, dependence F12.20 and Suicidal risk R45.89 [place] [id number] [place] [address] Sep, [place] [address] [address] Jul, Bipolar disorder, unspecified F31.9 ; PTSD (post-traumatic stress disorder) F43.10 and Panic disorder with agoraphobia F40.01 [place] [id number] [place] [address] Jul, Obstructive sleep apnea syndrome G47.33 ; Moderate persistent asthma without complication J45.40 and Cigarette nicotine dependence with other nicotine-induced disorder F17.218 [place] [id number] [place] [address] Jul, [place] [id number] [place] [address] Jul, [place] [id number] [place] [address] May, [place] [id number] [place] [address] May, [place] [id number] [place] [address] May, [place] [id number] [place] [address] Apr, [place] [id number] [place] [address] Apr, Bipolar disorder, unspecified F31.9 ; PTSD (post-traumatic stress disorder) F43.10 ; Panic disorder with agoraphobia F40.01 and Cannabis use disorder, moderate, dependence F12.20 [place] [address] [place] [address] Mar, Uncomplicated asthma, unspecified asthma severity J45.909 [place] [id number] [place] [address] Mar, [place] [id number] [place] [address] Mar, Moderate persistent asthma without complication J45.40 ; Gastroesophageal reflux disease without esophagitis K21.9 and Cigarette nicotine dependence with other nicotine-induced disorder F17.218 [place] [id number] [place] [address] Feb, [place] [id number] [place] [address] Jan, Bipolar disorder, unspecified F31.9 ; PTSD (post-traumatic stress disorder) F43.10 ; Panic disorder with agoraphobia F40.01 and Cannabis use disorder, moderate, dependence F12.20 [place] [address] [place] [address] December, [place] [id number] [place] [address] Nov, [place] [id number] [place] [address] Nov, Bipolar disorder, unspecified F31.9 ; PTSD (post-traumatic stress disorder) F43.10 ; Panic disorder with agoraphobia F40.01 and Cannabis use disorder, moderate, dependence F12.20 [place] [address] [place] [address] Oct, [place] [id number] [place] [address] Oct, [facility] [address] [place] [address] Sep, [facility] [id number] [place] [address] Sep, Bipolar disorder, unspecified F31.9 ; PTSD (post-traumatic stress disorder) F43.10 ; Panic disorder with agoraphobia F40.01 and Cannabis use disorder, moderate, dependence F12.20 [place] [id number] [place] [address] Aug, [place] [id number] [place] [address] Aug, [place] [id number] [place] [address] Aug, Bipolar disorder, unspecified F31.9 ; PTSD (post-traumatic stress disorder) F43.10 ; Panic disorder with agoraphobia F40.01 and Cannabis use disorder, moderate, dependence F12.20 [place] [id number] [place] [address] Jul, [place] [id number] [place] [address] Apr, GERD (gastroesophageal reflux disease) 530.81 and Internal hemorrhoids 455.0 [place] [id number] [place] [address] Feb, Rectal bleeding 569.3 and Hemorrhoids 455.6 [place] [id number] [place] [address] Jan, Sinusitis 473.9 and Otitis media 382.9 [place] [id number] [place] [address] December, [place] [id number] [place] [address] Nov, [place] [id number] [place] [address] 13 Nov, 2014 [facility] [address] [id number] [place] [address] Oct, [facility] [place] [facility] [address] [id number] [place] [address] Oct, 2014 [facility] [address] [id number] [place] [address] Sep, [facility] [place] [facility] [address] [id number] [place] [address] Sep, [facility] [address] [id number] [place] [address] Aug, [facility] [address] [id number] [place] [address] Aug, [facility] [address] [id number] [place] [address] Jul, [facility] [address] [id number] [place] [address] Jul, [facility] [place] [facility] [address] [id number] [place] [address] Jul, [facility] [address] [id number] [place] [address] Jul, [facility] [place] [facility] [address] [id number] [place] [address] Jul, [facility] [place] [facility] [address] [id number] [place] [address] Jul, [facility] [place] [facility] [address] [id number] [place] [address] Jul, [facility] [place] [facility] [address] [id number] [place] [address] Jul, [facility] [place] [facility] [address] [id number] [place] [address] Jun, [facility] [place] [facility] [address] [id number] [place] [address] Jun, [facility] [place] [facility] [address] [id number] [place] [address] Jun, [facility] [place] [facility] [address] [id number] [place] [address] Jun, [facility] [place] [facility] [address] [id number] [place] [id number] May, [facility] [place] [facility] [address] [id number] [place] [address] May, [facility] [place] [facility] [address] [id number] [place] [address] May, [facility] [place] [facility] [address] [id number] [place] [address] May, [facility] [place] [facility] [address] [id number] [place] [address] Apr, [facility] [place] [facility] [address] [id number] [place] [address] Apr, [facility] [place] [facility] [address] [id number], [place] [address] Apr, [facility] [place] [facility] [address] [id number], [place] [address] Apr, [facility] [place] [facility] [address] [id number], [place] [address] Mar, [facility] [place] [facility] [address] [id number] [place] [address] Mar, [facility] [place] [facility] [address] [id number] [place] [address] Mar, [facility] [place] [facility] [address] [id number], [place] [address] Mar, [facility] [place] [facility] [address] [id number], [place] [address] December, [facility] [place] [facility] [address] [id number] [place] [address] December, [facility] [place] [facility] [address] [id number] [place] [address] Nov, [facility] [place] [facility] [address] [facility] [id number] [place] [address] Nov, [facility] [place] [facility] [address] [id number] [place] [address] Sep, [facility] [place] [facility] [address] [id number] [place] [address] Sep, [facility] [place] [facility] [address] [facility] [id number] [place] [address] Sep, [facility] [place] [facility] [address] [facility] [id number] [place] [address] Sep, [facility] [place] [facility] [address] [facility] [id number] [place] [address] Aug, [facility] [place] [facility] [address] [id number] [place] [address] Jul, [facility] [place] [facility] [address] [facility] [id number] [place] [address] Jul, [facility] [place] [facility] [address] [facility] [id number] [place] [address] Jun, [facility] [place] [facility] [address] [facility] [id number], [place] [address] Jun, [facility] [place] [facility] [address] [facility] [id number] [place] [address] May, [facility] [place] [facility] [address] [facility] [id number] [place] [address] May, [facility] [place] [facility] [address] [facility] [id number], [place] [address] May, [facility] [place] [facility] [address] [id number] [place] [address] 17 Apr, 2013 [facility] [address] [id number] [place] [address] 16 Apr, 2013 [facility] [address] [id number] [place] [address] 09 Apr, 2013 [facility] [address] [id number] [place] [address] Apr, [facility] [address] [id number] [place] [address] Mar, [facility] [address] [id number] [place] [address] Mar, [facility] [address] [id number] [place] [address] December, [facility] [address] [id number] [place] [address] Oct, [facility] [address] [id number] [place] [address] Oct, [facility] [address] [id number] [place] [address] Aug, [facility] [address] [id number] [place] [address] 17 Jul, 2012 [facility] [address] [id number] [place] [address] 17 Jul, 2012 [facility] [address] [id number] [place] [address] 13 Jul, 2012 [facility] [place] [facility] [address] [id number] [place] [address] 13 Jul, 2012 [facility] [address] [id number] [place] [address] 14 Jun, 2012 [facility] [address] [id number] [place] [address] 14 Jun, 2012 [facility] [address] [id number] [place] [address] 14 Mar, 2012 [facility] [place] [facility] [address] [id number] [place] [address] 16 Feb, 2012 [facility] [place] [facility] [address] [id number] [place] [address] Feb, [facility] [place] [facility] [address] [id number] [place] [address] December, [facility] [place] [facility] [address] [id number] [place] [address] Nov, [facility] [place] [facility] [address] [id number] [place] [address] Oct, [facility] [place] [facility] [address] [id number] [place] [address] Oct, [facility] [place] [facility] [address] [id number] [place] [address] Sep, [facility] [place] [facility] [address] [id number] [place] [address] Sep, [facility] [place] [facility] [address] [id number] [place] [address] Aug, [facility] [place] [facility] [address] [id number] [place] [address] Aug, [facility] [place] [facility] [address] [id number] [place] [address] Jul, [facility] [place] [facility] [address] [id number] [place] [address] Jul, [facility] [place] [facility] [address] [id number] [place] [address] Jul, [facility] [place] [facility] [address] [id number] [place] [address] Jun, [facility] [place] [facility] [id number], [place] [address] May, [facility] [id number], [place] [address] Apr, [facility] [id number], [place] [address] Feb, [facility] [id number], [place] [address] Sep, [facility] [id number], [place] [address] Jul, [facility] [id number], [place] [address] Jul, [facility] [id number], [place] [address] Jul, [facility] [id number], [place] [address] Jul, [facility] [id number], [place] [address] Jun, [facility] [id number], [place] [address] Feb, [facility] [address] [id number], [place] [address] Jan, [facility] [address] [id number], [place] [address] Feb, [facility] [address] [id number], [place] [address] Jul, IMMUNIZATIONS No Known Immunizations SOCIAL HISTORY Never Assessed REASON FOR VISIT EMR-[facility] PLAN OF CARE VITAL SIGNS MEDICATIONS Unknown [...]
--- OUTSIDE RECORDS SUMMARY | 2019-02-25 21:11 | XMS REPORT ---
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 Name Role Phone KORY CHAND Unavailable PROBLEMS Type Condition ICD9-CM Code GDX46-EL Code Onset Dates Condition Status SNOMED Code Problem Panic disorder with agoraphobia F40.01 Active 68317350 Problem Bipolar disorder, unspecified F31.9 Active 15275066 Problem Gastroesophageal reflux disease without esophagitis K21.9 Active 676254545 Problem Cannabis use disorder, moderate, dependence F12.20 Active 11204423 Problem Moderate persistent asthma without complication J45.40 Active 151927940 Problem Cigarette nicotine dependence with other nicotine-induced disorder F17.218 Active 54543601 Problem Cannabis dependence F12.20 Active 34254160 Problem Post-traumatic stress disorder F43.10 Active 55115313 Problem Chronic post-traumatic stress disorder (PTSD) F43.12 Active 264824189 Problem Seizures R56.9 Active 55816400 Problem Anxiety, generalized F41.1 Active 84717725 Problem Moderate persistent asthma, uncomplicated J45.40 Active 203747969 Problem Obstructive sleep apnea syndrome G47.33 Active 45328862 Problem Adjustment disorder with mixed anxiety and depressed mood F43.23 Active 78379554 Problem Adjustment disorder with anxious mood F43.22 Active 18228810 Problem Adjustment disorder with depressed mood F43.21 Active 60894552 Problem Other chronic pain G89.29 Active 61255688 ALLERGIES No Information ENCOUNTERS Encounter Location Date Diagnosis [facility] [id number] [address] December, [facility] [address] [address] December, [facility] [id number], [place] [address] December, [facility] [id number] [place] [address] Nov, [facility] [id number] [place] [address] Nov, Cannabis use disorder, moderate, dependence F12.20 [facility] [id number] [place] [address] Nov, Moderate persistent asthma, uncomplicated J45.40 [facility] [id number] [place] [address] Nov, [facility] [id number] [place] [address] Nov, Moderate persistent asthma, uncomplicated J45.40 [facility] [id number] [place] [address] Nov, Bipolar disorder, unspecified F31.9 ; Panic disorder with agoraphobia F40.01 ; Chronic post-traumatic stress disorder (PTSD) F43.12 and Cannabis use disorder, moderate, dependence F12.20 [place] [id number] [place] [address] Nov, Moderate persistent asthma, uncomplicated J45.40 [facility] [id number] [place] [address] Nov, Pleurisy R09.1 and Bronchitis J40 [place] [id number] [place] [address] Oct, Gastroesophageal reflux disease without esophagitis K21.9 [place] [id number] [place] [address] Oct, [place] [id number] [place] [address] Oct, [place] [id number] [place] [address] Oct, [facility] [id number] [place] [address] Oct, [facility] [address], [place] [address] Oct, Pneumonia of left lower lobe due to infectious organism J18.1 [facility] [address], [place] [address] Oct, Pleuritis R09.1 [facility] [id number] [place] [address] Oct, [facility] [id number] [place] [address] Oct, Bipolar disorder, unspecified F31.9 ; Panic disorder with agoraphobia F40.01 ; Chronic post-traumatic stress disorder (PTSD) F43.12 and Cannabis use disorder, moderate, dependence F12.20 [facility] [id number] [place] [address] Sep, [facility] [id number] [place] [address] Sep, Rib pain R07.81 and Eustachian tube dysfunction H69.80 [place] [address] [place] [address] Sep, [facility] [address] [address] Sep, [facility] [id number] [place] [address] Aug, [facility] [address] [place] [address] Aug, Bipolar disorder, unspecified F31.9 ; Chronic post-traumatic stress disorder (PTSD) F43.12 ; Cannabis use disorder, moderate, dependence F12.20 and Psychogenic nonepileptic seizure F44.5 [facility] [address] [address] Aug, [place] [address] [address] Aug, [facility] [id number] [place] [address] Jul, [facility] [id number] [place] [address] Jul, Bipolar disorder, unspecified F31.9 ; Chronic post-traumatic stress disorder (PTSD) F43.12 ; Panic disorder with agoraphobia F40.01 and Cannabis use disorder, moderate, dependence F12.20 [facility] [id number] [place] [address], [place] [address] Jul, [facility] [id number] [place] [address] Jun, [facility] [id number] [place] [address] Jun, [facility] [id number] [place] [address] Jun, [facility] [id number] [place] [address] Jun, Seizures R56.9 [facility] [id number] [place] [address], [place] [address] Jun, [facility] [id number] [place] [address] May, [facility] [address], [place] [address] May, [facility] [id number] [place] [address] May, [facility] [address] [address] May, [facility] [address], [place] [address] May, [facility] [address], [place] [address] May, [facility] [address], [place] [address] May, [facility] [address], [place] [address] May, Seizures R56.9 [facility] [id number] [place] [address] May, [facility] [address] [address] Apr, [facility] [id number] [place] [address] Apr, [facility] [address] [place] [address] Apr, [facility] [id number] [place] [address] Apr, [facility] [address], [place] [address] Apr, Bipolar disorder, unspecified F31.9 ; Panic disorder with agoraphobia F40.01 and Cannabis use disorder, moderate, dependence F12.20 [facility] [address], [place] [address] Mar, [facility] [address], [place] [address] Mar, [facility] [address], [place] [address] Jan, Low back pain M54.5 ; Moderate persistent asthma without complication J45.40 and Other chronic pain G89.29 [facility] [address], [place] [address] Jan, Moderate persistent asthma without complication J45.40 ; Low back pain M54.5 ; Other chronic pain G89.29 ; Gastroesophageal reflux disease without esophagitis K21.9 and Cigarette nicotine dependence with other nicotine- induced disorder F17.218 [place] [id number] [place] [address] December, Bipolar disorder, unspecified F31.9 ; Panic disorder with agoraphobia F40.01 ; Cannabis use disorder, moderate, dependence F12.20 and Chronic post- traumatic stress disorder (PTSD) F43.12 [facility] [id number] [place] [address] December, [place] [id number] [place] [address] December, [facility] [id number] [place] [address] Nov, [facility] [id number] [place] [address] Oct, Bipolar disorder, unspecified F31.9 ; Chronic post-traumatic stress disorder (PTSD) F43.12 ; Panic disorder with agoraphobia F40.01 and Cannabis use disorder, moderate, dependence F12.20 [facility] [id number] [place] [address] Sep, [place] [id number] [place] [address] Sep, [place] [id number] [place] [address] Aug, [place] [id number] [place] [address] Aug, Cannabis use disorder, moderate, dependence F12.20 ; Panic disorder with agoraphobia F40.01 and Bipolar affective disorder, currently depressed, moderate F31.32 [place] [id number] [place] [address] May, Diarrhea of presumed infectious origin A09 and Nausea and vomiting, intractability of vomiting not specified, unspecified vomiting type R11.2 [place] [id number] [place] [address] Apr, [place] [address] [address] Mar, Nausea R11.0 and Gastroenteritis K52.9 [place] [address] [address] Mar, Gastroesophageal reflux disease without esophagitis K21.9 [place] [address] [address] Mar, Gastroesophageal reflux disease without esophagitis K21.9 [address] [address] [address] Mar, [place] [address] [address] Mar, [place] [address] [address] Mar, [place] [id number] [place] [address] Feb, Acute pain of right shoulder M25.511 and Muscle spasm M62.838 [address] [id number] [place] [address] Feb, Acute labyrinthitis, unspecified laterality H83.09 [facility] [id number] [place] [address] December, [place] [id number] [place] [address] December, [address] [address] [address] December, Cannabis use disorder, moderate, dependence F12.20 ; Anxiety, generalized F41.1 ; Adjustment disorder with mixed anxiety and depressed mood F43.23 and Chronic post-traumatic stress disorder (PTSD) F43.12 [place] [address], [place] [address] December, [place] [id number] [place] [address] December, [place] [id number] [place] [address] Nov, Acute nasopharyngitis J00 [address] [id number] [place] [address] Nov, Cannabis use disorder, moderate, dependence F12.20 ; Anxiety, generalized F41.1 ; Adjustment disorder with mixed anxiety and depressed mood F43.23 and Chronic post-traumatic stress disorder (PTSD) F43.12 [place] [id number] [place] [address] Nov, Cannabis use disorder, moderate, dependence F12.20 ; Anxiety, generalized F41.1 ; Adjustment disorder with mixed anxiety and depressed mood F43.23 and Chronic post-traumatic stress disorder (PTSD) F43.12 [address] [place] [address] [place] [address] Oct, Diarrhea, unspecified R19.7 ; Vomiting, unspecified R11.10 and Viral gastroenteritis A08.4 [address] [address] [place] [address] Oct, Bipolar disorder, unspecified F31.9 ; Panic disorder with agoraphobia F40.01 ; Cannabis use disorder, moderate, dependence F12.20 ; Cigarette nicotine dependence with other nicotine-induced disorder F17.218 ; Anxiety, generalized F41.1 ; Post-traumatic stress disorder F43.10 and Adjustment disorder with mixed anxiety and depressed mood F43.23 [place] [id number] [place] [address] Oct, Bipolar disorder, unspecified F31.9 ; Chronic post-traumatic stress disorder (PTSD) F43.12 ; Panic disorder with agoraphobia F40.01 and Cannabis use disorder, moderate, dependence F12.20 [address] [address] [place] [address] Oct, Bipolar disorder, unspecified F31.9 ; Panic disorder with agoraphobia F40.01 ; Cannabis use disorder, moderate, dependence F12.20 ; Cigarette nicotine dependence with other nicotine-induced disorder F17.218 ; Anxiety, generalized F41.1 ; Post-traumatic stress disorder F43.10 and Adjustment disorder with mixed anxiety and depressed mood F43.23 [id number] [place] [address] 14 Oct, 2016 Viral gastroenteritis A08.4 [id number] [place] [address] 09 Oct, 2016 Anxiety, generalized F41.1 ; Post-traumatic stress disorder F43.10 ; Adjustment disorder with depressed mood F43.21 and Adjustment disorder with anxious mood F43.22 [id number] [place] [address] 07 Oct, 2016 Panic disorder with agoraphobia F40.01 ; Cannabis use disorder, moderate, dependence F12.20 ; Bipolar disorder, unspecified F31.9 ; Cigarette nicotine dependence with other nicotine-induced disorder F17.218 ; Adjustment disorder with anxious mood F43.22 ; Anxiety, generalized F41.1 ; Post-traumatic stress disorder F43.10 and Cannabis dependence F12.20 [place] [address] [place] [address] Oct, Bipolar disorder, unspecified F31.9 and Chronic post-traumatic stress disorder (PTSD) F43.12 [address] [address] [place] [address] Oct, Bipolar disorder, unspecified F31.9 and Chronic post-traumatic stress disorder (PTSD) F43.12 [address] [id number] [place] [address] Sep, Bipolar disorder, unspecified F31.9 ; Panic disorder with agoraphobia F40.01 ; PTSD (post-traumatic stress disorder) F43.10 ; Cannabis use disorder, moderate, dependence F12.20 ; Cannabis dependence F12.20 and Anxiety, generalized F41.1 [address] [address] [place] [address] Sep, Cannabis use disorder, moderate, dependence F12.20 ; Anxiety, generalized F41.1 and Adjustment disorder with mixed anxiety and depressed mood F43.23 [address] [place] [address] 15 Sep, 2016 Bipolar disorder, unspecified F31.9 ; Panic disorder with agoraphobia F40.01 ; PTSD (post-traumatic stress disorder) F43.10 ; Cannabis use disorder, moderate, dependence F12.20 ; Cannabis dependence F12.20 and Anxiety, generalized F41.1 [address] [address] [address] [place] [address] 10 Sep, 2016 Bipolar disorder, unspecified F31.9 ; Panic disorder with agoraphobia F40.01 ; PTSD (post-traumatic stress disorder) F43.10 ; Cannabis use disorder, moderate, dependence F12.20 ; Cannabis dependence F12.20 and Anxiety, generalized F41.1 [address] [place] [address] Sep, Bipolar disorder, unspecified F31.9 ; Post-traumatic stress disorder F43.10 and Cannabis dependence F12.20 [place] [address] [place] [address] Sep, [place] [address] Sep, Suicidal behavior without attempted self-injury R46.89 [address] [address] [place] [address] Sep, [address] [address] [place] [address] 07 Sep, 2016 Cannabis use disorder, moderate, dependence F12.20 ; Panic disorder with agoraphobia F40.01 ; Bipolar disorder, unspecified F31.9 and Anxiety, generalized F41.1 [place] [id number] [place] [address] 07 Sep, 2016 Bipolar disorder, unspecified F31.9 ; PTSD (post-traumatic stress disorder) F43.10 ; Panic disorder with agoraphobia F40.01 and Cannabis use disorder, moderate, dependence F12.20 [place] [id number] [place] [address] Sep, [place] [id number] [place] [address] Sep, PTSD (post-traumatic stress disorder) F43.10 ; Cannabis use disorder, moderate, dependence F12.20 and Suicidal risk R45.89 [place] [id number] [place] [address] Sep, [place] [id number] [place] [address] Jul, Bipolar disorder, unspecified F31.9 ; PTSD (post-traumatic stress disorder) F43.10 and Panic disorder with agoraphobia F40.01 [place] [id number] [place] [address] Jul, Obstructive sleep apnea syndrome G47.33 ; Moderate persistent asthma without complication J45.40 and Cigarette nicotine dependence with other nicotine-induced disorder F17.218 [place] [id number] [place] [address] Jul, [place] [id number] [place] [address] Jul, [place] [id number] [place] [address] May, [place] [id number] [place] [address] May, [place] [id number] [place] [address] May, [place] [address] [place] [address] Apr, [place] [id number] [place] [address] Apr, Bipolar disorder, unspecified F31.9 ; PTSD (post-traumatic stress disorder) F43.10 ; Panic disorder with agoraphobia F40.01 and Cannabis use disorder, moderate, dependence F12.20 [place] [id number] [place] [address] Mar, Uncomplicated asthma, unspecified asthma severity J45.909 [place] [id number] [place] [address] Mar, [place] [id number] [place] [address] Mar, Moderate persistent asthma without complication J45.40 ; Gastroesophageal reflux disease without esophagitis K21.9 and Cigarette nicotine dependence with other nicotine-induced disorder F17.218 [place] [id number] [place] [address] Feb, [place] [id number] [place] [address] Jan, Bipolar disorder, unspecified F31.9 ; PTSD (post-traumatic stress disorder) F43.10 ; Panic disorder with agoraphobia F40.01 and Cannabis use disorder, moderate, dependence F12.20 [place] [address] [place] [address] December, [place] [id number] [place] [address] Nov, [place] [id number] [place] [address] Nov, Bipolar disorder, unspecified F31.9 ; PTSD (post-traumatic stress disorder) F43.10 ; Panic disorder with agoraphobia F40.01 and Cannabis use disorder, moderate, dependence F12.20 [place] [address] [place] [address] Oct, [address] [id number] [place] [address] Oct, [place] [id number] [place] [address] Sep, [address] [address] Sep, Bipolar disorder, unspecified F31.9 ; PTSD (post-traumatic stress disorder) F43.10 ; Panic disorder with agoraphobia F40.01 and Cannabis use disorder, moderate, dependence F12.20 [address] [id number] [place] [address] Aug, [address] [address] Aug, [address] [id number] [place] [address] Aug, Bipolar disorder, unspecified F31.9 ; PTSD (post-traumatic stress disorder) F43.10 ; Panic disorder with agoraphobia F40.01 and Cannabis use disorder, moderate, dependence F12.20 [address] [id number] [place] [address] Jul, [id number] [place] [address] Apr, GERD (gastroesophageal reflux disease) 530.81 and Internal hemorrhoids 455.[address] [address] Feb, Rectal bleeding 569.3 and Hemorrhoids 455.6 [address] [id number] [place] [address] Jan, Sinusitis 473.9 and Otitis media 382.[address] [address] December, [facility] [address] [id number] [place] [address] Nov, [facility] [place] [facility] [address] [id number] [place] [address] Nov, [facility] [place] [facility] [address] [id number] [place] [address] Oct, [facility] [place] [facility] [address] [id number] [place] [address] Oct, [facility] [place] [facility] [address] [id number] [place] [address] Sep, [facility] [place] [facility] [address] [id number] [place] [address] Sep, [facility] [place] [facility] [address] [facility] [id number] [place] [address] Aug, [facility] [place] [facility] [address] [facility] [id number] [place] [address] Aug, [facility] [place] [facility] [address] [id number] [place] [address] Jul, [facility] [place] [facility] [address] [facility] [id number] [place] [address] Jul, [facility] [place] [facility] [address] [id number] [place] [address] Jul, [facility] [place] [facility] [address] [id number] [place] [address] Jul, [facility] [place] [facility] [address] [id number] [place] [address] Jul, [facility] [place] [facility] [address] [facility] [id number] [place] [address] Jul, [facility] [place] [facility] [address] [facility] [id number] [place] [address] Jul, [facility] [place] [facility] [address] [id number] [place] [address] Jul, [facility] [place] [facility] [address] [id number] [place] [address] Jun, [facility] [place] [facility] [address] [id number] [place] [address] Jun, [facility] [place] [facility] [address] [id number] [place] [address] Jun, [facility] [place] [facility] [address] [id number] [place] [address] Jun, [facility] [place] [facility] [address] [id number] [place] [address] May, [facility] [place] [facility] [address] [id number] [place] [address] May, [facility] [place] [facility] [address] [id number] [place] [address] May, [facility] [place] [facility] [address] [id number] [place] [address] May, [facility] [place] [facility] [address] [id number] [place] [address] Apr, [facility] [place] [facility] [address] [id number] [place] [address] Apr, [facility] [place] [facility] [address] [id number] [place] [address] Apr, [facility] [place] [facility] [address] [id number] [place] [address] Apr, [facility] [place] [facility] [address] [id number] [place] [address] Mar, [facility] [place] [facility] [address] [id number] [place] [address] Mar, [facility] [place] [facility] [address] [id number] [place] [address] Mar, [facility] [place] [facility] [address] [id number] [place] [address] Mar, [facility] [place] [facility] [address] [id number] [place] [address] December, [facility] [place] [facility] [address] [facility] [id number] [place] [address] December, [facility] [place] [facility] [address] [id number] [place] [address] Nov, [facility] [place] [facility] [address] [id number] [place] [address] Nov, [facility] [place] [facility] [address] [id number] [place] [address] Sep, [facility] [place] [facility] [address] [id number] [place] [address] Sep, [facility] [place] [facility] [address] [id number] [place] [address] Sep, [facility] [place] [facility] [address] [id number] [place] [address] Sep, [facility] [place] [facility] [address] [facility] [id number] [place] [address] Aug, [facility] [place] [facility] [address] [id number], [place] [address] Jul, [facility] [place] [facility] [address] [id number], [place] [address] Jul, [facility] [place] [facility] [address] [id number] [place] [address] Jun, [facility] [place] [facility] [address] [id number] [place] [address] Jun, [facility] [place] [facility] [address] [id number] [place] [address] May, [facility] [place] [facility] [address] [id number] [place] [address] 18 May, 2013 [facility] [address] [id number] [place] [address] 07 May, 2013 [facility] [place] [facility] [address] [id number] [place] [address] 17 Apr, 2013 [facility] [address] [id number] [place] [address] 16 Apr, 2013 [facility] [address] [id number] [place] [address] 09 Apr, 2013 [facility] [address] [id number] [place] [address] Apr, [facility] [address] [id number] [place] [address] Mar, [facility] [address] [id number] [place] [address] Mar, [facility] [address] [id number] [place] [address] December, [facility] [address] [id number] [place] [address] Oct, [facility] [address] [id number] [place] [address] Oct, [facility] [address] [id number] [place] [address] Aug, [facility] [address] [id number] [place] [address] Jul, [facility] [place] [facility] [address] [id number] [place] [address] Jul, [facility] [place] [facility] [address] [id number] [place] [address] Jul, [facility] [address] [id number] [place] [address] Jul, [facility] [address] [id number] [place] [address] 14 Jun, 2012 [facility] [place] [facility] [address] [id number] [place] [address] 14 Jun, 2012 [facility] [place] [facility] [address] [id number] [place] [address] 14 Mar, 2012 [facility] [place] [facility] [address] [id number] [place] [address] 16 Feb, 2012 [facility] [place] [facility] [address] [id number] [place] [address] 16 Feb, 2012 [facility] [place] [facility] [address] [id number] [place] [address] December, [facility] [place] [facility] [address] [id number] [place] [address] 17 Nov, 2011 [facility] [place] [facility] [address] [id number] [place] [address] 23 Oct, 2011 [facility] [place] [facility] [address] [id number] [place] [address] Oct, [facility] [place] [facility] [address] [id number] [place] [address] Sep, [facility] [place] [facility] [address] [id number] [place] [address] Sep, [facility] [place] [facility] [address] [id number] [place] [address] Aug, [facility] [place] [facility] [address] [id number] [place] [address] Aug, [facility] [place] [facility] [address] [id number] [place] [address] 22 Jul, 2011 [facility] [place] [facility] [address] [id number] [place] [address] Jul, [facility] [place] [facility] [address] [address] Jul, [facility] [address] [address] Jun, [facility] [address] [id number] [address] May, [facility] [address] [address] Apr, [facility] [address] [facility] [id number], [place] [address] Feb, [facility] [id number] [place] [address] Sep, [facility] [id number] [address] Jul, [facility] [address] [address] Jul, [facility] [id number] [address] Jul, [facility] [id number] [address] Jul, [facility] [address] [place] [address] Jun, [facility] [address] [address] Feb, [facility] [address] [id number] [address] Jan, [facility] [address] [id number] [address] Feb, [facility] [id number] [address] Jul, IMMUNIZATIONS No Known Immunizations SOCIAL HISTORY Never Assessed REASON FOR VISIT Request return call PLAN OF CARE VITAL SIGNS [...]
--- OUTSIDE RECORDS SUMMARY | 2019-02-25 21:12 | XMS REPORT ---
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 Name Role Phone Migration, Doctor Unavailable Unavailable PROBLEMS Type Condition ICD9-CM Code PAT79-KP Code Onset Dates Condition Status SNOMED Code Problem Panic disorder with agoraphobia F40.01 Active 74418100 Problem Bipolar disorder, unspecified F31.9 Active 49657716 Problem Gastroesophageal reflux disease without esophagitis K21.9 Active 321783434 Problem Cannabis use disorder, moderate, dependence F12.20 Active 56517173 Problem Moderate persistent asthma without complication J45.40 Active 200515087 Problem Cigarette nicotine dependence with other nicotine-induced disorder F17.218 Active 30137330 Problem Cannabis dependence F12.20 Active 12845409 Problem Post-traumatic stress disorder F43.10 Active 86094589 Problem Chronic post-traumatic stress disorder (PTSD) F43.12 Active 269810034 Problem Seizures R56.9 Active 32512245 Problem Anxiety, generalized F41.1 Active 99316432 Problem Moderate persistent asthma, uncomplicated J45.40 Active 535362119 Problem Obstructive sleep apnea syndrome G47.33 Active 35800522 Problem Adjustment disorder with mixed anxiety and depressed mood F43.23 Active 90762095 Problem Adjustment disorder with anxious mood F43.22 Active 49006643 Problem Adjustment disorder with depressed mood F43.21 Active 47157577 Problem Other chronic pain G89.29 Active 59802810 ALLERGIES No Information ENCOUNTERS Encounter Location Date Diagnosis [facility] [address] [facility] [id number] [address] December, [facility] [address] [address] December, [facility] [address], [place] [address] December, [facility] [id number] [address] Nov, [facility] [id number] [place] [address] Nov, Cannabis use disorder, moderate, dependence F12.20 [facility] [id number] [place] [address] 24 Nov, 2018 Moderate persistent asthma, uncomplicated J45.40 [facility] [id number] [place] [address] Nov, [facility] [address] [address] Nov, Moderate persistent asthma, uncomplicated J45.40 [place] [address] [address] 16 Nov, 2018 Bipolar disorder, unspecified F31.9 ; Panic disorder with agoraphobia F40.01 ; Chronic post-traumatic stress disorder (PTSD) F43.12 and Cannabis use disorder, moderate, dependence F12.20 [place] [id number] [place] [address] Nov, Moderate persistent asthma, uncomplicated J45.40 [place] [address] [address] 08 Nov, 2018 Pleurisy R09.1 and Bronchitis J40 [place] [id number] [place] [address] Oct, Gastroesophageal reflux disease without esophagitis K21.9 [place] [id number] [place] [address] Oct, [place] [id number] [place] [address] Oct, [place] [address] [address] Oct, [facility] [id number] [place] [address] Oct, [facility] [address] [place] [address] Oct, Pneumonia of left lower lobe due to infectious organism J18.1 [place] [address] [place] [id number] Oct, Pleuritis R09.1 [place] [address] [address] Oct, [place] [address] [address] Oct, Bipolar disorder, unspecified F31.9 ; Panic disorder with agoraphobia F40.01 ; Chronic post-traumatic stress disorder (PTSD) F43.12 and Cannabis use disorder, moderate, dependence F12.20 [place] [address] [address] Sep, [address] [address] Sep, Rib pain R07.81 and Eustachian tube dysfunction H69.80 [place] [address] [address] Sep, [place] [id number] [place] [address] Sep, [place] [id number] [place] [address] Aug, [place] [address] [place] [id number] Aug, Bipolar disorder, unspecified F31.9 ; Chronic post-traumatic stress disorder (PTSD) F43.12 ; Cannabis use disorder, moderate, dependence F12.20 and Psychogenic nonepileptic seizure F44.5 [place] [id number] [place] [address] Aug, [place] [address] [address] Aug, [facility] [id number] [place] [address] Jul, [facility] [id number] [place] [address] Jul, Bipolar disorder, unspecified F31.9 ; Chronic post-traumatic stress disorder (PTSD) F43.12 ; Panic disorder with agoraphobia F40.01 and Cannabis use disorder, moderate, dependence F12.20 [facility] [id number] [place] [address] Jul, [facility] [id number] [place] [address] Jun, [facility] [id number] [place] [address] Jun, [facility] [id number] [place] [address] Jun, [facility] [id number] [place] [address] Jun, Seizures R56.9 [facility] [id number] [place] [address] Jun, [facility] [id number] [place] [address] May, [facility] [id number] [place] [address] May, [facility] [id number] [place] [address] May, [facility] [id number] [place] [address] May, [facility] [id number] [place] [address] May, [facility] [id number] [place] [address] May, [facility] [id number] [place] [address] May, [facility] [id number] [place] [address] May, Seizures R56.9 [facility] [id number] [place] [address] May, [facility] [id number] [place] [address] Apr, [facility] [id number] [place] [address] Apr, [facility] [id number] [place] [address] Apr, [facility] [id number] [place] [address] Apr, [facility] [id number] [place] [address] Apr, Bipolar disorder, unspecified F31.9 ; Panic disorder with agoraphobia F40.01 and Cannabis use disorder, moderate, dependence F12.20 [facility] [id number] [place] [address] Mar, [facility] [id number] [place] [address] Mar, [facility] [id number] [place] [address] Jan, Low back pain M54.5 ; Moderate persistent asthma without complication J45.40 and Other chronic pain G89.29 [facility] [id number] [place] [address] Jan, Moderate persistent asthma without complication J45.40 ; Low back pain M54.5 ; Other chronic pain G89.29 ; Gastroesophageal reflux disease without esophagitis K21.9 and Cigarette nicotine dependence with other nicotine- induced disorder F17.218 [place] [address] [place] [address] December, Bipolar disorder, unspecified F31.9 ; Panic disorder with agoraphobia F40.01 ; Cannabis use disorder, moderate, dependence F12.20 and Chronic post- traumatic stress disorder (PTSD) F43.12 [place] [id number] [place] [address] December, [place] [id number] [place] [address] December, [place] [id number] [place] [address] Nov, [place] [id number] [place] [address] Oct, Bipolar disorder, unspecified F31.9 ; Chronic post-traumatic stress disorder (PTSD) F43.12 ; Panic disorder with agoraphobia F40.01 and Cannabis use disorder, moderate, dependence F12.20 [place] [id number] [place] [address] Sep, [place] [id number] [place] [address] Sep, [place] [id number] [place] [address] Aug, [place] [id number] [place] [address] Aug, Cannabis use disorder, moderate, dependence F12.20 ; Panic disorder with agoraphobia F40.01 and Bipolar affective disorder, currently depressed, moderate F31.32 [place] [id number] [place] [address] May, Diarrhea of presumed infectious origin A09 and Nausea and vomiting, intractability of vomiting not specified, unspecified vomiting type R11.2 [place] [id number] [place] [address] Apr, [facility] [id number] [place] [address] Mar, Nausea R11.0 and Gastroenteritis K52.9 [facility] [id number] [place] [address] Mar, Gastroesophageal reflux disease without esophagitis K21.9 [place] [address] [address] Mar, Gastroesophageal reflux disease without esophagitis K21.9 [place] [address] [address] Mar, [place] [address] [address] Mar, [place] [address] [address] Mar, [place] [address] [address] Feb, Acute pain of right shoulder M25.511 and Muscle spasm M62.838 [place] [address] [address] Feb, Acute labyrinthitis, unspecified laterality H83.09 [place] [id number] [place] [address] December, [place] [id number] [place] [address] December, [place] [id number] [place] [address] December, Cannabis use disorder, moderate, dependence F12.20 ; Anxiety, generalized F41.1 ; Adjustment disorder with mixed anxiety and depressed mood F43.23 and Chronic post-traumatic stress disorder (PTSD) F43.12 [place] [id number] [place] [address] December, [place] [address], [place] [address] December, [place] [id number] [place] [address] Nov, Acute nasopharyngitis J00 [place] [id number] [place] [address] Nov, Cannabis use disorder, moderate, dependence F12.20 ; Anxiety, generalized F41.1 ; Adjustment disorder with mixed anxiety and depressed mood F43.23 and Chronic post-traumatic stress disorder (PTSD) F43.12 [place] [id number] [place] [address] Nov, Cannabis use disorder, moderate, dependence F12.20 ; Anxiety, generalized F41.1 ; Adjustment disorder with mixed anxiety and depressed mood F43.23 and Chronic post-traumatic stress disorder (PTSD) F43.12 [place] [id number] [place] [address] Oct, Diarrhea, unspecified R19.7 ; Vomiting, unspecified R11.10 and Viral gastroenteritis A08.4 [place] [address] [place] [address] Oct, Bipolar disorder, unspecified F31.9 ; Panic disorder with agoraphobia F40.01 ; Cannabis use disorder, moderate, dependence F12.20 ; Cigarette nicotine dependence with other nicotine-induced disorder F17.218 ; Anxiety, generalized F41.1 ; Post-traumatic stress disorder F43.10 and Adjustment disorder with mixed anxiety and depressed mood F43.23 [place] [address] [place] [address] Oct, Bipolar disorder, unspecified F31.9 ; Chronic post-traumatic stress disorder (PTSD) F43.12 ; Panic disorder with agoraphobia F40.01 and Cannabis use disorder, moderate, dependence F12.20 [place] [address] [place] [address] Oct, Bipolar disorder, unspecified F31.9 ; Panic disorder with agoraphobia F40.01 ; Cannabis use disorder, moderate, dependence F12.20 ; Cigarette nicotine dependence with other nicotine-induced disorder F17.218 ; Anxiety, generalized F41.1 ; Post-traumatic stress disorder F43.10 and Adjustment disorder with mixed anxiety and depressed mood F43.23 [place] [address] [place] [address] 14 Oct, 2016 Viral gastroenteritis A08.4 [place] [address] [place] [address] 09 Oct, 2016 Anxiety, generalized F41.1 ; Post-traumatic stress disorder F43.10 ; Adjustment disorder with depressed mood F43.21 and Adjustment disorder with anxious mood F43.22 [place] [id number] [place] [address] 07 Oct, 2016 Panic disorder with agoraphobia F40.01 ; Cannabis use disorder, moderate, dependence F12.20 ; Bipolar disorder, unspecified F31.9 ; Cigarette nicotine dependence with other nicotine-induced disorder F17.218 ; Adjustment disorder with anxious mood F43.22 ; Anxiety, generalized F41.1 ; Post-traumatic stress disorder F43.10 and Cannabis dependence F12.20 [place] [address] [place] [address] Oct, Bipolar disorder, unspecified F31.9 and Chronic post-traumatic stress disorder (PTSD) F43.12 [place] [address] [place] [address] Oct, Bipolar disorder, unspecified F31.9 and Chronic post-traumatic stress disorder (PTSD) F43.12 [place] [id number] [place] [address] Sep, Bipolar disorder, unspecified F31.9 ; Panic disorder with agoraphobia F40.01 ; PTSD (post-traumatic stress disorder) F43.10 ; Cannabis use disorder, moderate, dependence F12.20 ; Cannabis dependence F12.20 and Anxiety, generalized F41.1 [place] [id number] [place] [address] 22 Sep, 2016 Cannabis use disorder, moderate, dependence F12.20 ; Anxiety, generalized F41.1 and Adjustment disorder with mixed anxiety and depressed mood F43.23 [place] [address] [place] [address] 15 Sep, 2016 Bipolar disorder, unspecified F31.9 ; Panic disorder with agoraphobia F40.01 ; PTSD (post-traumatic stress disorder) F43.10 ; Cannabis use disorder, moderate, dependence F12.20 ; Cannabis dependence F12.20 and Anxiety, generalized F41.[address] [address] 10 Sep, 2016 Bipolar disorder, unspecified F31.9 ; Panic disorder with agoraphobia F40.01 ; PTSD (post-traumatic stress disorder) F43.10 ; Cannabis use disorder, moderate, dependence F12.20 ; Cannabis dependence F12.20 and Anxiety, generalized F41.1 [place] [address] [place] [address] 08 Sep, 2016 Bipolar disorder, unspecified F31.9 ; Post-traumatic stress disorder F43.10 and Cannabis dependence F12.20 [place] [address] Sep, [place] [id number] [place] [address] 08 Sep, 2016 Suicidal behavior without attempted self-injury R46.89 [place] [address] [place] [address] 08 Sep, 2016 [place] [address] 07 Sep, 2016 Cannabis use disorder, moderate, dependence F12.20 ; Panic disorder with agoraphobia F40.01 ; Bipolar disorder, unspecified F31.9 and Anxiety, generalized F41.1 [place] [id number] Sep, Bipolar disorder, unspecified F31.9 ; PTSD (post-traumatic stress disorder) F43.10 ; Panic disorder with agoraphobia F40.01 and Cannabis use disorder, moderate, dependence F12.20 [facility] [address] [place] [address] Sep, [facility] [id number] [place] [address] Sep, PTSD (post-traumatic stress disorder) F43.10 ; Cannabis use disorder, moderate, dependence F12.20 and Suicidal risk R45.89 [place] [id number] [place] [address] Sep, [place] [address] [place] [address] Jul, Bipolar disorder, unspecified F31.9 ; PTSD (post-traumatic stress disorder) F43.10 and Panic disorder with agoraphobia F40.01 [place] [address] [place] [address] Jul, Obstructive sleep apnea syndrome G47.33 ; Moderate persistent asthma without complication J45.40 and Cigarette nicotine dependence with other nicotine-induced disorder F17.218 [place] [address] [place] [address] Jul, [place] [address] [place] [address] Jul, [facility] [address] [place] [address] May, [place] [address] [place] [address] May, [facility] [id number] [place] [address] May, [facility] [id number] [place] [address] Apr, [place] [address], [place] [address] Apr, Bipolar disorder, unspecified F31.9 ; PTSD (post-traumatic stress disorder) F43.10 ; Panic disorder with agoraphobia F40.01 and Cannabis use disorder, moderate, dependence F12.20 [place] [address] [place] [address] Mar, Uncomplicated asthma, unspecified asthma severity J45.909 [place] [address] [place] [address] Mar, [place] [address] [place] [address] Mar, Moderate persistent asthma without complication J45.40 ; Gastroesophageal reflux disease without esophagitis K21.9 and Cigarette nicotine dependence with other nicotine-induced disorder F17.218 [place] [id number] [place] [address] Feb, [place] [id number] [place] [address] Jan, Bipolar disorder, unspecified F31.9 ; PTSD (post-traumatic stress disorder) F43.10 ; Panic disorder with agoraphobia F40.01 and Cannabis use disorder, moderate, dependence F12.20 [place] [address] [place] [address] December, [place] [id number] [place] [address] Nov, [place] [id number] [place] [address] Nov, Bipolar disorder, unspecified F31.9 ; PTSD (post-traumatic stress disorder) F43.10 ; Panic disorder with agoraphobia F40.01 and Cannabis use disorder, moderate, dependence F12.20 [place] [id number] [place] [address] Oct, [facility] [address] [place] [address] Oct, [place] [id number] [place] [address] Sep, [facility] [id number] [place] [address] Sep, Bipolar disorder, unspecified F31.9 ; PTSD (post-traumatic stress disorder) F43.10 ; Panic disorder with agoraphobia F40.01 and Cannabis use disorder, moderate, dependence F12.20 [place] [id number] [place] [address] Aug, [place] [id number] [place] [address] Aug, [place] [id number] [place] [address] Aug, Bipolar disorder, unspecified F31.9 ; PTSD (post-traumatic stress disorder) F43.10 ; Panic disorder with agoraphobia F40.01 and Cannabis use disorder, moderate, dependence F12.20 [place] [address] [place] [address] Jul, [place] [id number] [place] [address] Apr, GERD (gastroesophageal reflux disease) 530.81 and Internal hemorrhoids 455.0 [place] [id number] [place] [address] Feb, Rectal bleeding 569.3 and Hemorrhoids 455.6 [place] [id number] [place] [address] Jan, Sinusitis 473.9 and Otitis media 382.9 [place] [id number] [place] [address] December, [place] [address] [place] [address] [id number] [place] [address] 14 Nov, 2014 [facility] [address] [id number] [place] [address] 13 Nov, 2014 [facility] [place] [facility] [address] [id number] [place] [address] Oct, 2014 [facility] [address] [id number] [place] [address] Oct, 2014 [facility] [place] [facility] [address] [id number] [place] [address] Sep, [facility] [address] [id number] [place] [address] Sep, [facility] [address] [id number] [place] [address] Aug, [facility] [address] [id number] [place] [address] Aug, [facility] [address] [id number] [place] [address] Jul, [facility] [place] [facility] [address] [id number] [place] [address] Jul, [facility] [address] [id number] [place] [address] Jul, [facility] [place] [facility] [address] [id number] [place] [address] Jul, [facility] [place] [facility] [address] [id number] [place] [address] Jul, [facility] [place] [facility] [address] [id number] [place] [address] Jul, [facility] [place] [facility] [address] [id number] [place] [address] Jul, [facility] [place] [facility] [address] [id number] [place] [address] Jul, [facility] [place] [facility] [address] [id number] [place] [address] Jun, [facility] [place] [facility] [address] [id number] [place] [address] Jun, [facility] [place] [facility] [address] [id number] [place] [address] Jun, [facility] [place] [facility] [address] [id number] [place] [address] Jun, [facility] [place] [facility] [address] [id number] [place] [address] May, [facility] [place] [facility] [address] [id number] [place] [address] May, [facility] [place] [facility] [address] [id number] [place] [address] May, [facility] [place] [facility] [address] [id number] [place] [address] May, [facility] [place] [facility] [address] [id number] [place] [address] Apr, [facility] [place] [facility] [address] [id number], [place] [address] Apr, [facility] [place] [facility] [address] [id number], [place] [address] Apr, [facility] [place] [facility] [address] [id number], [place] [address] Apr, [facility] [place] [facility] [address] [id number] [place] [address] Mar, [facility] [place] [facility] [address] [id number] [place] [address] Mar, [facility] [facility] [address] [id number], [place] [address] Mar, [facility] [facility] [address] [id number], [place] [address] Mar, [facility] [place] [facility] [address] [id number] [place] [address] December, [facility] [place] [facility] [address] [id number] [place] [address] December, [facility] [place] [facility] [address] [facility] [id number] [place] [address] Nov, [facility] [place] [facility] [address] [facility] [id number] [place] [address] Nov, [facility] [place] [facility] [address] [id number] [place] [address] Sep, [facility] [place] [facility] [address] [facility] [id number] [place] [address] Sep, [facility] [place] [facility] [address] [facility] [id number] [place] [address] Sep, [facility] [place] [facility] [address] [facility] [id number] [place] [address] Sep, [facility] [place] [facility] [address] [id number] [place] [address] Aug, [facility] [place] [facility] [address] [facility] [id number] [place] [address] Jul, [facility] [place] [facility] [address] [facility] [id number] [place] [address] Jul, [facility] [facility] [address] [facility] [id number], [place] [address] Jun, [facility] [address] [facility] [id number] [place] [address] Jun, [facility] [place] [facility] [address] [facility] [id number] [place] [address] May, [facility] [facility] [address] [facility] [id number], [place] [address] May, [facility] [place] [facility] [address] [id number] [place] [address] 07 May, 2013 [facility] [address] [id number] [place] [address] 17 Apr, 2013 [facility] [address] [id number] [place] [address] 16 Apr, 2013 [facility] [address] [id number] [place] [address] 09 Apr, 2013 [facility] [address] [id number] [place] [address] Apr, [facility] [address] [id number] [place] [address] Mar, [facility] [address] [id number] [place] [address] Mar, [facility] [address] [id number] [place] [address] December, [facility] [address] [id number] [place] [address] Oct, [facility] [address] [id number] [place] [address] Oct, [facility] [address] [id number] [place] [address] Aug, [facility] [address] [id number] [place] [address] Jul, [facility] [address] [id number] [place] [address] Jul, [facility] [address] [id number] [place] [address] Jul, [facility] [address] [id number] [place] [address] 13 Jul, 2012 [facility] [address] [id number] [place] [address] 14 Jun, 2012 [facility] [address] [id number] [place] [address] 14 Jun, 2012 [facility] [place] [facility] [address] [id number] [place] [address] 14 Mar, 2012 [facility] [facility] [address] [id number] [place] [address] 16 Feb, 2012 [facility] [facility] [address] [id number] [place] [address] 16 Feb, 2012 [facility] [address] [id number] [place] [address] December, [facility] [address] [id number] [place] [address] Nov, [facility] [address] [id number] [place] [address] Oct, [facility] [address] [id number] [place] [address] Oct, [facility] [address] [id number] [place] [address] Sep, [facility] [address] [id number] [place] [address] Sep, [facility] [address] [id number] [place] [address] Aug, [facility] [address] [id number] [place] [address] Aug, [facility] [address] [id number] [place] [address] Jul, [facility] [address] [id number] [place] [address] Jul, [facility] [address] [id number] [place] [address] Jul, [facility] [address] [id number], [place] [address] 17 Jun, 2011 [facility] [address], [place] [address] May, [facility] [address], [place] [address] Apr, [facility] [address], [place] [address] Feb, [facility] [address], [place] [address] Sep, [facility] [id number] [place] [address] Jul, [facility] [address], [place] [address] Jul, [facility] [address], [place] [address] Jul, [facility] [address], [place] [address] Jul, [facility] [address], [place] [address] Jun, [facility] [address] [id number], [place] [address] Feb, [facility] [address], [place] [address] Jan, [facility] [address] [id number], [place] [address] Feb, [facility] [address], [place] [address] Jul, IMMUNIZATIONS No Known Immunizations SOCIAL HISTORY Never Assessed REASON FOR VISIT EMR-[facility] PLAN OF CARE VITAL SIGNS MEDICATIONS Unknown [...]
--- OUTSIDE RECORDS SUMMARY | 2019-02-25 21:12 | XMS REPORT ---
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 Name Role Phone PETRA GARZON Unavailable PROBLEMS Type Condition ICD9-CM Code DRK16-AJ Code Onset Dates Condition Status SNOMED Code Problem Panic disorder with agoraphobia F40.01 Active 25467581 Problem Bipolar disorder, unspecified F31.9 Active 75223311 Problem Gastroesophageal reflux disease without esophagitis K21.9 Active 983742528 Problem Cannabis use disorder, moderate, dependence F12.20 Active 96530036 Problem Moderate persistent asthma without complication J45.40 Active 208787667 Problem Cigarette nicotine dependence with other nicotine-induced disorder F17.218 Active 08826490 Problem Cannabis dependence F12.20 Active 35264713 Problem Post-traumatic stress disorder F43.10 Active 73831179 Problem Chronic post-traumatic stress disorder (PTSD) F43.12 Active 648348322 Problem Seizures R56.9 Active 36320974 Problem Anxiety, generalized F41.1 Active 66244054 Problem Moderate persistent asthma, uncomplicated J45.40 Active 584286959 Problem Obstructive sleep apnea syndrome G47.33 Active 97500885 Problem Adjustment disorder with mixed anxiety and depressed mood F43.23 Active 65853144 Problem Adjustment disorder with anxious mood F43.22 Active 43504271 Problem Adjustment disorder with depressed mood F43.21 Active 22376809 Problem Other chronic pain G89.29 Active [id number] ALLERGIES No Information ENCOUNTERS Encounter Location Date Diagnosis [facility] [id number] [address] December, [facility] [address] [address] December, [facility] [id number] [address] December, [facility] [id number] [place] [address] Nov, [facility] [id number] [place] [address] Nov, Cannabis use disorder, moderate, dependence F12.20 [facility] [id number] [place] [address] Nov, Moderate persistent asthma, uncomplicated J45.40 [facility] [id number] [place] [address] Nov, [place] [id number] [place] [address] Nov, Moderate persistent asthma, uncomplicated J45.40 [place] [id number] [place] [address] Nov, Bipolar disorder, unspecified F31.9 ; Panic disorder with agoraphobia F40.01 ; Chronic post-traumatic stress disorder (PTSD) F43.12 and Cannabis use disorder, moderate, dependence F12.20 [place] [id number] [place] [address] Nov, Moderate persistent asthma, uncomplicated J45.40 [place] [id number] [place] [address] Nov, Pleurisy R09.1 and Bronchitis J40 [place] [id number] [place] [address] Oct, Gastroesophageal reflux disease without esophagitis K21.9 [place] [id number] [place] [address] Oct, [place] [id number] [place] [address] Oct, [place] [id number] [place] [address] Oct, [place] [id number] [place] [address] Oct, [facility] [address] [address] Oct, Pneumonia of left lower lobe due to infectious organism J18.1 [facility] [address] [address] Oct, Pleuritis R09.1 [facility] [id number] [place] [address] Oct, [facility] [id number] [place] [address] Oct, Bipolar disorder, unspecified F31.9 ; Panic disorder with agoraphobia F40.01 ; Chronic post-traumatic stress disorder (PTSD) F43.12 and Cannabis use disorder, moderate, dependence F12.20 [place] [id number] [place] [address] Sep, [facility] [id number] [place] [address] Sep, Rib pain R07.81 and Eustachian tube dysfunction H69.80 [place] [id number] [place] [address] Sep, [facility] [address] [address] Sep, [facility] [id number] [place] [address] Aug, [facility] [id number] [place] [address] Aug, Bipolar disorder, unspecified F31.9 ; Chronic post-traumatic stress disorder (PTSD) F43.12 ; Cannabis use disorder, moderate, dependence F12.20 and Psychogenic nonepileptic seizure F44.5 [facility] [address] [address] Aug, [place] [id number] [address] Aug, [facility] [place] [facility] [id number] [place] [address] Jul, [facility] [place] [facility] [id number] [place] [address] Jul, Bipolar disorder, unspecified F31.9 ; Chronic post-traumatic stress disorder (PTSD) F43.12 ; Panic disorder with agoraphobia F40.01 and Cannabis use disorder, moderate, dependence F12.20 [facility] [id number] [place] [address], [place] [address] Jul, [facility] [place] [facility] [id number] [place] [address] Jun, [facility] [id number] [place] [address] Jun, [facility] [facility] [id number] [place] [address] Jun, [facility] [id number] [place] [address] Jun, Seizures R56.9 [facility] [id number] [place] [address], [place] [address] Jun, [facility] [id number] [place] [address] May, [facility] [address] [address] May, [facility] [id number] [place] [address] May, [facility] [id number] [address] May, [facility] [address] [address] May, [facility] [address] [address] May, [facility] [address] [address] May, [facility] [address] [address] May, Seizures R56.9 [facility] [id number] [place] [address] May, [facility] [address] [address] Apr, [facility] [id number] [place] [address] Apr, [facility] [id number] [place] [address] Apr, [facility] [id number] [place] [address] Apr, [facility] [address] [address] Apr, Bipolar disorder, unspecified F31.9 ; Panic disorder with agoraphobia F40.01 and Cannabis use disorder, moderate, dependence F12.20 [facility] [address] [address] Mar, [facility] [address] [address] Mar, [facility] [address] [address] Jan, Low back pain M54.5 ; Moderate persistent asthma without complication J45.40 and Other chronic pain G89.29 [facility] [address] [address] Jan, Moderate persistent asthma without complication J45.40 ; Low back pain M54.5 ; Other chronic pain G89.29 ; Gastroesophageal reflux disease without esophagitis K21.9 and Cigarette nicotine dependence with other nicotine- induced disorder F17.218 [place] [id number] [place] [address] December, Bipolar disorder, unspecified F31.9 ; Panic disorder with agoraphobia F40.01 ; Cannabis use disorder, moderate, dependence F12.20 and Chronic post- traumatic stress disorder (PTSD) F43.12 [place] [id number] [place] [address] December, [place] [id number] [place] [address] December, [place] [id number] [place] [address] Nov, [place] [id number] [place] [address] Oct, Bipolar disorder, unspecified F31.9 ; Chronic post-traumatic stress disorder (PTSD) F43.12 ; Panic disorder with agoraphobia F40.01 and Cannabis use disorder, moderate, dependence F12.20 [place] [id number] [place] [address] Sep, [place] [id number] [place] [address] Sep, [place] [id number] [place] [address] Aug, [place] [id number] [place] [address] Aug, Cannabis use disorder, moderate, dependence F12.20 ; Panic disorder with agoraphobia F40.01 and Bipolar affective disorder, currently depressed, moderate F31.32 [place] [id number] [place] [address] May, Diarrhea of presumed infectious origin A09 and Nausea and vomiting, intractability of vomiting not specified, unspecified vomiting type R11.2 [place] [id number] [place] [address] Apr, [place] [address] [address] Mar, Nausea R11.0 and Gastroenteritis K52.9 [place] [address] [address] Mar, Gastroesophageal reflux disease without esophagitis K21.9 [place] [address] [address] Mar, Gastroesophageal reflux disease without esophagitis K21.9 [place] [address] [address] Mar, [place] [address] [address] Mar, [place] [address] [address] Mar, [place] [id number] [place] [address] Feb, Acute pain of right shoulder M25.511 and Muscle spasm M62.838 [place] [id number] [place] [address] Feb, Acute labyrinthitis, unspecified laterality H83.09 [place] [id number] [place] [address] December, [place] [id number] [place] [address] December, [place] [address] [address] December, Cannabis use disorder, moderate, dependence F12.20 ; Anxiety, generalized F41.1 ; Adjustment disorder with mixed anxiety and depressed mood F43.23 and Chronic post-traumatic stress disorder (PTSD) F43.12 [place] [address] [address] December, [place] [id number] [place] [address] December, [place] [id number] [place] [address] Nov, Acute nasopharyngitis J00 [place] [id number] [place] [address] Nov, Cannabis use disorder, moderate, dependence F12.20 ; Anxiety, generalized F41.1 ; Adjustment disorder with mixed anxiety and depressed mood F43.23 and Chronic post-traumatic stress disorder (PTSD) F43.12 [address] [id number] [place] [address] Nov, Cannabis use disorder, moderate, dependence F12.20 ; Anxiety, generalized F41.1 ; Adjustment disorder with mixed anxiety and depressed mood F43.23 and Chronic post-traumatic stress disorder (PTSD) F43.12 [address] [address] [place] [address] Oct, Diarrhea, unspecified R19.7 ; Vomiting, unspecified R11.10 and Viral gastroenteritis A08.4 [place] [id number] [place] [address] Oct, Bipolar disorder, unspecified F31.9 ; Panic disorder with agoraphobia F40.01 ; Cannabis use disorder, moderate, dependence F12.20 ; Cigarette nicotine dependence with other nicotine-induced disorder F17.218 ; Anxiety, generalized F41.1 ; Post-traumatic stress disorder F43.10 and Adjustment disorder with mixed anxiety and depressed mood F43.23 [place] [id number] [place] [address] Oct, Bipolar disorder, unspecified F31.9 ; Chronic post-traumatic stress disorder (PTSD) F43.12 ; Panic disorder with agoraphobia F40.01 and Cannabis use disorder, moderate, dependence F12.20 [address] [id number] [place] [address] Oct, Bipolar disorder, unspecified F31.9 ; Panic disorder with agoraphobia F40.01 ; Cannabis use disorder, moderate, dependence F12.20 ; Cigarette nicotine dependence with other nicotine-induced disorder F17.218 ; Anxiety, generalized F41.1 ; Post-traumatic stress disorder F43.10 and Adjustment disorder with mixed anxiety and depressed mood F43.23 [id number] [place] [address] 14 Oct, 2016 Viral gastroenteritis A08.4 [id number] [place] [address] 09 Oct, 2016 Anxiety, generalized F41.1 ; Post-traumatic stress disorder F43.10 ; Adjustment disorder with depressed mood F43.21 and Adjustment disorder with anxious mood F43.22 [id number] [place] [address] 07 Oct, 2016 Panic disorder with agoraphobia F40.01 ; Cannabis use disorder, moderate, dependence F12.20 ; Bipolar disorder, unspecified F31.9 ; Cigarette nicotine dependence with other nicotine-induced disorder F17.218 ; Adjustment disorder with anxious mood F43.22 ; Anxiety, generalized F41.1 ; Post-traumatic stress disorder F43.10 and Cannabis dependence F12.20 [place] [id number] [place] [address] Oct, Bipolar disorder, unspecified F31.9 and Chronic post-traumatic stress disorder (PTSD) F43.12 [place] [id number] [place] [address] Oct, Bipolar disorder, unspecified F31.9 and Chronic post-traumatic stress disorder (PTSD) F43.12 [place] [id number] [place] [address] Sep, Bipolar disorder, unspecified F31.9 ; Panic disorder with agoraphobia F40.01 ; PTSD (post-traumatic stress disorder) F43.10 ; Cannabis use disorder, moderate, dependence F12.20 ; Cannabis dependence F12.20 and Anxiety, generalized F41.1 [address] [address] [place] [address] Sep, Cannabis use disorder, moderate, dependence F12.20 ; Anxiety, generalized F41.1 and Adjustment disorder with mixed anxiety and depressed mood F43.23 [address] [address] [place] [address] 15 Sep, 2016 Bipolar disorder, unspecified F31.9 ; Panic disorder with agoraphobia F40.01 ; PTSD (post-traumatic stress disorder) F43.10 ; Cannabis use disorder, moderate, dependence F12.20 ; Cannabis dependence F12.20 and Anxiety, generalized F41.1 [address] [address] [place] [address] 10 Sep, 2016 Bipolar disorder, unspecified F31.9 ; Panic disorder with agoraphobia F40.01 ; PTSD (post-traumatic stress disorder) F43.10 ; Cannabis use disorder, moderate, dependence F12.20 ; Cannabis dependence F12.20 and Anxiety, generalized F41.1 [place] [address] [place] [address] Sep, Bipolar disorder, unspecified F31.9 ; Post-traumatic stress disorder F43.10 and Cannabis dependence F12.20 [place] [address] [place] [address] Sep, [place] [address] Sep, Suicidal behavior without attempted self-injury R46.89 [address] [address] [place] [address] Sep, [place] [address] [place] [address] 07 Sep, 2016 Cannabis use disorder, moderate, dependence F12.20 ; Panic disorder with agoraphobia F40.01 ; Bipolar disorder, unspecified F31.9 and Anxiety, generalized F41.1 [place] [id number] [place] [address] 07 Sep, 2016 Bipolar disorder, unspecified F31.9 ; PTSD (post-traumatic stress disorder) F43.10 ; Panic disorder with agoraphobia F40.01 and Cannabis use disorder, moderate, dependence F12.20 [place] [id number] [place] [address] Sep, [place] [id number] [place] [address] Sep, PTSD (post-traumatic stress disorder) F43.10 ; Cannabis use disorder, moderate, dependence F12.20 and Suicidal risk R45.89 [place] [id number] [place] [address] Sep, [place] [id number] [place] [address] Jul, Bipolar disorder, unspecified F31.9 ; PTSD (post-traumatic stress disorder) F43.10 and Panic disorder with agoraphobia F40.01 [place] [id number] [place] [address] Jul, Obstructive sleep apnea syndrome G47.33 ; Moderate persistent asthma without complication J45.40 and Cigarette nicotine dependence with other nicotine-induced disorder F17.218 [place] [id number] [place] [address] Jul, [place] [id number] [place] [address] Jul, [place] [id number] [place] [address] May, [place] [id number] [place] [address] May, [place] [id number] [place] [address] May, [place] [id number] [place] [address] Apr, [place] [id number] [place] [address] Apr, Bipolar disorder, unspecified F31.9 ; PTSD (post-traumatic stress disorder) F43.10 ; Panic disorder with agoraphobia F40.01 and Cannabis use disorder, moderate, dependence F12.20 [place] [id number] [place] [address] Mar, Uncomplicated asthma, unspecified asthma severity J45.909 [place] [id number] [place] [address] Mar, [place] [id number] [place] [address] Mar, Moderate persistent asthma without complication J45.40 ; Gastroesophageal reflux disease without esophagitis K21.9 and Cigarette nicotine dependence with other nicotine-induced disorder F17.218 [place] [id number] [place] [address] Feb, [place] [id number] [place] [address] Jan, Bipolar disorder, unspecified F31.9 ; PTSD (post-traumatic stress disorder) F43.10 ; Panic disorder with agoraphobia F40.01 and Cannabis use disorder, moderate, dependence F12.20 [place] [id number] [place] [address] December, [place] [id number] [place] [address] Nov, [place] [id number] [place] [address] Nov, Bipolar disorder, unspecified F31.9 ; PTSD (post-traumatic stress disorder) F43.10 ; Panic disorder with agoraphobia F40.01 and Cannabis use disorder, moderate, dependence F12.20 [place] [id number] [place] [address] Oct, [place] [id number] [place] [address] Oct, [place] [id number] [place] [address] Sep, [address] [address] Sep, Bipolar disorder, unspecified F31.9 ; PTSD (post-traumatic stress disorder) F43.10 ; Panic disorder with agoraphobia F40.01 and Cannabis use disorder, moderate, dependence F12.20 [place] [id number] [place] [address] Aug, [address] [address] Aug, [place] [id number] [place] [address] Aug, Bipolar disorder, unspecified F31.9 ; PTSD (post-traumatic stress disorder) F43.10 ; Panic disorder with agoraphobia F40.01 and Cannabis use disorder, moderate, dependence F12.20 [place] [id number] [place] [address] Jul, [place] [id number] [place] [address] Apr, GERD (gastroesophageal reflux disease) 530.81 and Internal hemorrhoids 455.[address] [address] Feb, Rectal bleeding 569.3 and Hemorrhoids 455.6 [place] [id number] [place] [address] Jan, Sinusitis 473.9 and Otitis media 382.[address] [address] December, [facility] [address] [id number] [place] [address] Nov, [facility] [place] [facility] [address] [id number] [place] [address] Nov, [facility] [place] [facility] [address] [id number] [place] [address] Oct, [facility] [place] [facility] [address] [id number] [place] [address] Oct, [facility] [place] [facility] [address] [id number] [place] [address] Sep, [facility] [place] [facility] [address] [id number] [place] [address] Sep, [facility] [place] [facility] [address] [facility] [id number] [place] [address] Aug, [facility] [place] [facility] [address] [facility] [id number] [place] [address] Aug, [facility] [place] [facility] [address] [id number] [place] [address] Jul, [facility] [place] [facility] [address] [facility] [id number] [place] [address] Jul, [facility] [place] [facility] [address] [id number] [place] [address] Jul, [facility] [place] [facility] [address] [id number] [place] [address] Jul, [facility] [place] [facility] [address] [id number] [place] [address] Jul, [facility] [place] [facility] [address] [facility] [id number] [place] [address] Jul, [facility] [place] [facility] [address] [facility] [id number] [place] [address] Jul, [facility] [place] [facility] [address] [id number] [place] [address] Jul, [facility] [place] [facility] [address] [id number] [place] [address] Jun, [facility] [place] [facility] [address] [id number] [place] [address] Jun, [facility] [place] [facility] [address] [id number] [place] [address] Jun, [facility] [place] [facility] [address] [id number] [place] [address] Jun, [facility] [place] [facility] [address] [id number] [place] [address] May, [facility] [place] [facility] [address] [id number] [place] [address] May, [facility] [place] [facility] [address] [id number] [place] [address] May, [facility] [place] [facility] [address] [id number] [place] [address] May, [facility] [place] [facility] [address] [id number] [place] [address] Apr, [facility] [place] [facility] [address] [id number] [place] [address] Apr, [facility] [place] [facility] [address] [id number] [place] [address] Apr, [facility] [place] [facility] [address] [id number] [place] [address] Apr, [facility] [place] [facility] [address] [id number] [place] [address] Mar, [facility] [place] [facility] [address] [id number] [place] [address] Mar, [facility] [place] [facility] [address] [id number] [place] [address] Mar, [facility] [place] [facility] [address] [id number] [place] [address] Mar, [facility] [place] [facility] [address] [id number] [place] [address] December, [facility] [place] [facility] [address] [facility] [id number] [place] [address] December, [facility] [place] [facility] [address] [id number] [place] [address] Nov, [facility] [place] [facility] [address] [id number] [place] [address] Nov, [facility] [place] [facility] [address] [id number] [place] [address] Sep, [facility] [place] [facility] [address] [id number] [place] [address] Sep, [facility] [place] [facility] [address] [id number] [place] [address] Sep, [facility] [place] [facility] [address] [id number] [place] [address] Sep, [facility] [place] [facility] [address] [facility] [id number] [place] [address] Aug, [facility] [place] [facility] [address] [id number] [place] [address] Jul, [facility] [place] [facility] [address] [id number] [place] [address] Jul, [facility] [place] [facility] [address] [id number] [place] [address] Jun, [facility] [place] [facility] [address] [id number] [place] [address] Jun, [facility] [place] [facility] [address] [id number] [place] [address] May, [facility] [place] [facility] [address] [id number] [place] [address] 18 May, 2013 [facility] [address] [id number] [place] [address] 07 May, 2013 [facility] [place] [facility] [address] [id number] [place] [address] 17 Apr, 2013 [facility] [address] [id number] [place] [address] 16 Apr, 2013 [facility] [address] [id number] [place] [address] 09 Apr, 2013 [facility] [address] [id number] [place] [address] Apr, [facility] [address] [id number] [place] [address] Mar, [facility] [address] [id number] [place] [address] Mar, [facility] [address] [id number] [place] [address] December, [facility] [address] [id number] [place] [address] Oct, [facility] [address] [id number] [place] [address] Oct, [facility] [address] [id number] [place] [address] Aug, [facility] [address] [id number] [place] [address] Jul, [facility] [place] [facility] [address] [id number] [place] [address] Jul, [facility] [place] [facility] [address] [id number] [place] [address] Jul, [facility] [address] [id number] [place] [address] Jul, [facility] [address] [id number] [place] [address] 14 Jun, 2012 [facility] [place] [facility] [address] [id number] [place] [address] 14 Jun, 2012 [facility] [place] [facility] [address] [id number] [place] [address] 14 Mar, 2012 [facility] [place] [facility] [address] [id number] [place] [address] 16 Feb, 2012 [facility] [place] [facility] [address] [id number] [place] [address] 16 Feb, 2012 [facility] [place] [facility] [address] [id number] [place] [address] December, [facility] [place] [facility] [address] [id number] [place] [address] 17 Nov, 2011 [facility] [place] [facility] [address] [id number] [place] [address] 23 Oct, 2011 [facility] [place] [facility] [address] [id number] [place] [address] Oct, [facility] [place] [facility] [address] [id number] [place] [address] Sep, [facility] [place] [facility] [address] [id number] [place] [address] Sep, [facility] [place] [facility] [address] [id number] [place] [address] Aug, [facility] [place] [facility] [address] [id number] [place] [address] Aug, [facility] [place] [facility] [address] [id number] [place] [address] 22 Jul, 2011 [facility] [place] [facility] [address] [id number] [place] [address] Jul, [facility] [place] [facility] [address] [id number] [address] Jul, [facility] [address] [facility] [id number] [place] [address] Jun, [facility] [address] [facility] [id number] [place] [address] May, [facility] [id number] [address] Apr, [facility] [address] [facility] [id number] [place] [address] Feb, [facility] [address] [facility] [id number] [place] [address] Sep, [facility] [address] [id number] [address] Jul, [facility] [id number] [address] Jul, [facility] [id number] [address] Jul, [facility] [id number] [address] Jul, [facility] [id number] [address] Jun, [facility] [address] [id number] [address] Feb, [facility] [address] [id number] [address] Jan, [facility] [address] [id number] [address] Feb, [facility] [address] [id number] [address] Jul, IMMUNIZATIONS No Known Immunizations SOCIAL HISTORY Never Assessed REASON FOR VISIT PLAN OF CARE VITAL SIGNS MEDICATIONS Medication Instructions Dosage Frequency Start Date End Date Duration Status Levaquin 750 MG Orally Once a day 1 tablet 24h Oct, 7 days Active RESULTS No Results PROCEDURES No [...]
--- OUTSIDE RECORDS SUMMARY | 2019-02-25 21:13 | XMS REPORT ---
Author Author Migration, Doctor Organization [facility] Address Unknown Phone Unavailable Care Team Providers [facility] Worker Name Role Phone Migration, Doctor Unavailable Unavailable PROBLEMS Type Condition ICD9-CM Code UNF24-KC Code Onset Dates Condition Status SNOMED Code Problem Panic disorder with agoraphobia F40.01 Active 23088869 Problem Bipolar disorder, unspecified F31.9 Active 94122992 Problem Gastroesophageal reflux disease without esophagitis K21.9 Active 095814154 Problem Cannabis use disorder, moderate, dependence F12.20 Active 55393937 Problem Moderate persistent asthma without complication J45.40 Active 480157017 Problem Cigarette nicotine dependence with other nicotine-induced disorder F17.218 Active 56474515 Problem Cannabis dependence F12.20 Active 72124248 Problem Post-traumatic stress disorder F43.10 Active 69030421 Problem Chronic post-traumatic stress disorder (PTSD) F43.12 Active 420543770 Problem Seizures R56.9 Active 91117151 Problem Anxiety, generalized F41.1 Active 92099317 Problem Moderate persistent asthma, uncomplicated J45.40 Active 893715939 Problem Obstructive sleep apnea syndrome G47.33 Active 88427467 Problem Adjustment disorder with mixed anxiety and depressed mood F43.23 Active 54278470 Problem Adjustment disorder with anxious mood F43.22 Active 40842338 Problem Adjustment disorder with depressed mood F43.21 Active 11841545 Problem Other chronic pain G89.29 Active 55375045 ALLERGIES No Information ENCOUNTERS Encounter Location Date Diagnosis [facility] [id number] [address] December, [facility] [address], [place] [address] December, [facility] [address], [place] [address] 18 Nov, 2018 Moderate persistent asthma, uncomplicated J45.40 [facility] [id number], [place] [address] Nov, Bipolar disorder, unspecified F31.9 ; Panic disorder with agoraphobia F40.01 ; Chronic post-traumatic stress disorder (PTSD) F43.12 and Cannabis use disorder, moderate, dependence F12.20 [facility] [id number] [place], [place] [address] Nov, Moderate persistent asthma, uncomplicated J45.40 [facility] [address] [place] [address] Nov, Pleurisy R09.1 and Bronchitis J40 [address] [address] Oct, Gastroesophageal reflux disease without esophagitis K21.9 [facility] [id number] [place] [address] Oct, [address] [address] Oct, [facility] [id number] [place] [address] Oct, [address] [address] Oct, [facility] [id number] [place] [address] Oct, Pneumonia of left lower lobe due to infectious organism J18.1 [address] [id number] [place] [address] Oct, Pleuritis R09.1 [facility] [id number] [place] [address] Oct, [address] [address] Oct, Bipolar disorder, unspecified F31.9 ; Panic disorder with agoraphobia F40.01 ; Chronic post-traumatic stress disorder (PTSD) F43.12 and Cannabis use disorder, moderate, dependence F12.20 [facility] [id number] [place] [address] Sep, [facility] [id number] [place] [address] Sep, Rib pain R07.81 and Eustachian tube dysfunction H69.80 [facility] [id number] [place] [address] Sep, [facility] [id number] [place] [address] Sep, [facility] [id number] [place] [address] Aug, [facility] [id number] [place] [address] Aug, Bipolar disorder, unspecified F31.9 ; Chronic post-traumatic stress disorder (PTSD) F43.12 ; Cannabis use disorder, moderate, dependence F12.20 and Psychogenic nonepileptic seizure F44.5 [facility] [id number] [place] [address] Aug, [facility] [id number] [place] [address] Aug, [facility] [id number] [place] [address] Jul, [facility] [id number] [place] [address] Jul, Bipolar disorder, unspecified F31.9 ; Chronic post-traumatic stress disorder (PTSD) F43.12 ; Panic disorder with agoraphobia F40.01 and Cannabis use disorder, moderate, dependence F12.20 [facility] [id number] [place] [address] Jul, [facility] [id number] [place] [address] Jun, [facility] [place] [facility] [address] [id number] [place] [address] Jun, [facility] [place] [facility] [address] [id number] [place] [address] Jun, [facility] [place] [facility] [address] [id number] [place] [address] Jun, Seizures R56.9 [facility] [place] [facility] [id number] [place] [address], [place] [address] Jun, [facility] [place] [facility] [address] [id number] [place] [address] May, [facility] [place] [facility] [id number] [place] [address], [place] [address] May, [facility] [place] [facility] [address] [id number] [place] [address] May, [facility] [place] [facility] [address] [id number] [place] [address] May, [facility] [place] [facility] [address] [id number] [place] [address] May, [facility] [place] [facility] [address] [facility] [id number] [place] [address] May, [facility] [place] [facility] [address] [id number] [place] [address] May, [facility] [place] [facility] [address] [facility] [id number] [place] [address] May, Seizures R56.9 [facility] [place] [facility] [address] [id number] [place] [address] May, [facility] [place] [facility] [address] [facility] [id number] [place] [address] Apr, [facility] [place] [facility] [address] [id number] [place] [address] Apr, [facility] [place] [facility] [address], [place] [address] Apr, [address] [place] [address] Apr, [address] [place] [address] Apr, Bipolar disorder, unspecified F31.9 ; Panic disorder with agoraphobia F40.01 and Cannabis use disorder, moderate, dependence F12.20 [address] [id number] [place] [address] Mar, [place] [id number] [place] [address] Mar, [place] [id number] [place] [address] Jan, Low back pain M54.5 ; Moderate persistent asthma without complication J45.40 and Other chronic pain G89.29 [place] [id number] [place] [address] Jan, Moderate persistent asthma without complication J45.40 ; Low back pain M54.5 ; Other chronic pain G89.29 ; Gastroesophageal reflux disease without esophagitis K21.9 and Cigarette nicotine dependence with other nicotine- induced disorder F17.218 [address] [place] [address] December, Bipolar disorder, unspecified F31.9 ; Panic disorder with agoraphobia F40.01 ; Cannabis use disorder, moderate, dependence F12.20 and Chronic post- traumatic stress disorder (PTSD) F43.12 [address], [place] [address] December, [id number] [place] [address] December, [address] [place] [address] Nov, [id number] [place] [address] Oct, Bipolar disorder, unspecified F31.9 ; Chronic post-traumatic stress disorder (PTSD) F43.12 ; Panic disorder with agoraphobia F40.01 and Cannabis use disorder, moderate, dependence F12.20 [address] [address] Sep, [address] [address] Sep, [address] [address] [address] Aug, [address] [address] Aug, Cannabis use disorder, moderate, dependence F12.20 ; Panic disorder with agoraphobia F40.01 and Bipolar affective disorder, currently depressed, moderate F31.[address] [address] May, Diarrhea of presumed infectious origin A09 and Nausea and vomiting, intractability of vomiting not specified, unspecified vomiting type R11.2 [id number] [place] [address] Apr, [id number] [place] [address] Mar, Nausea R11.0 and Gastroenteritis K52.9 [id number] [place] [address] Mar, Gastroesophageal reflux disease without esophagitis K21.[address] [address] Mar, Gastroesophageal reflux disease without esophagitis K21.[address] [address] Mar, [id number] [place] [address] Mar, [facility] [id number] [place] [address] Mar, [facility] [id number] [place] [address] Feb, Acute pain of right shoulder M25.511 and Muscle spasm M62.838 [id number] [place] [address] Feb, Acute labyrinthitis, unspecified laterality H83.09 [id number] [place] [address] December, [id number] [place] [address] December, [id number] [place] [address] December, Cannabis use disorder, moderate, dependence F12.20 ; Anxiety, generalized F41.1 ; Adjustment disorder with mixed anxiety and depressed mood F43.23 and Chronic post-traumatic stress disorder (PTSD) F43.12 [id number] [place] [address] December, [id number] [place] [address] December, [id number] [place] [address] Nov, Acute nasopharyngitis J00 [address] [place] [address] Nov, Cannabis use disorder, moderate, dependence F12.20 ; Anxiety, generalized F41.1 ; Adjustment disorder with mixed anxiety and depressed mood F43.23 and Chronic post-traumatic stress disorder (PTSD) F43.12 [id number] [place] [address] Nov, Cannabis use disorder, moderate, dependence F12.20 ; Anxiety, generalized F41.1 ; Adjustment disorder with mixed anxiety and depressed mood F43.23 and Chronic post-traumatic stress disorder (PTSD) F43.12 [id number] [place], [place] [address] Oct, Diarrhea, unspecified R19.7 ; Vomiting, unspecified R11.10 and Viral gastroenteritis A08.4 [id number] [place], [place] [address] Oct, Bipolar disorder, unspecified F31.9 ; Panic disorder with agoraphobia F40.01 ; Cannabis use disorder, moderate, dependence F12.20 ; Cigarette nicotine dependence with other nicotine-induced disorder F17.218 ; Anxiety, generalized F41.1 ; Post-traumatic stress disorder F43.10 and Adjustment disorder with mixed anxiety and depressed mood F43.23 [address] [id number] Oct, Bipolar disorder, unspecified F31.9 ; Chronic post-traumatic stress disorder (PTSD) F43.12 ; Panic disorder with agoraphobia F40.01 and Cannabis use disorder, moderate, dependence F12.20 [id number] [place] [address] Oct, Bipolar disorder, unspecified F31.9 ; Panic disorder with agoraphobia F40.01 ; Cannabis use disorder, moderate, dependence F12.20 ; Cigarette nicotine dependence with other nicotine-induced disorder F17.218 ; Anxiety, generalized F41.1 ; Post-traumatic stress disorder F43.10 and Adjustment disorder with mixed anxiety and depressed mood F43.23 [id number] [place] [address] 14 Oct, 2016 Viral gastroenteritis A08.4 [id number] [place], [place] [address] 09 Oct, 2016 Anxiety, generalized F41.1 ; Post-traumatic stress disorder F43.10 ; Adjustment disorder with depressed mood F43.21 and Adjustment disorder with anxious mood F43.22 [address] [place] [address] 07 Oct, 2017 Panic disorder with agoraphobia F40.01 ; Cannabis use disorder, moderate, dependence F12.20 ; Bipolar disorder, unspecified F31.9 ; Cigarette nicotine dependence with other nicotine-induced disorder F17.218 ; Adjustment disorder with anxious mood F43.22 ; Anxiety, generalized F41.1 ; Post-traumatic stress disorder F43.10 and Cannabis dependence F12.20 [address] [place] [address] Oct, Bipolar disorder, unspecified F31.9 and Chronic post-traumatic stress disorder (PTSD) F43.12 [id number] [place] [address] Oct, Bipolar disorder, unspecified F31.9 and Chronic post-traumatic stress disorder (PTSD) F43.12 [id number] [place] [address] 28 Sep, 2016 Bipolar disorder, unspecified F31.9 ; Panic disorder with agoraphobia F40.01 ; PTSD (post-traumatic stress disorder) F43.10 ; Cannabis use disorder, moderate, dependence F12.20 ; Cannabis dependence F12.20 and Anxiety, generalized F41.1 [address] [place] [address] Sep, Cannabis use disorder, moderate, dependence F12.20 ; Anxiety, generalized F41.1 and Adjustment disorder with mixed anxiety and depressed mood F43.23 [address] [place] [address] 15 Sep, 2016 Bipolar disorder, unspecified F31.9 ; Panic disorder with agoraphobia F40.01 ; PTSD (post-traumatic stress disorder) F43.10 ; Cannabis use disorder, moderate, dependence F12.20 ; Cannabis dependence F12.20 and Anxiety, generalized F41.1 [id number] [place] [address] Sep, Bipolar disorder, unspecified F31.9 ; Panic disorder with agoraphobia F40.01 ; PTSD (post-traumatic stress disorder) F43.10 ; Cannabis use disorder, moderate, dependence F12.20 ; Cannabis dependence F12.20 and Anxiety, generalized F41.1 [address] [place] [address] Sep, Bipolar disorder, unspecified F31.9 ; Post-traumatic stress disorder F43.10 and Cannabis dependence F12.20 [address] [place] [address] Sep, [address] [address] Sep, Suicidal behavior without attempted self-injury R46.89 [id number] [place] [address] Sep, [address] [id number] [place] [address] Sep, Cannabis use disorder, moderate, dependence F12.20 ; Panic disorder with agoraphobia F40.01 ; Bipolar disorder, unspecified F31.9 and Anxiety, generalized F41.1 [id number] [place] [address] Sep, Bipolar disorder, unspecified F31.9 ; PTSD (post-traumatic stress disorder) F43.10 ; Panic disorder with agoraphobia F40.01 and Cannabis use disorder, moderate, dependence F12.20 [address] [place] [address] Sep, [address] [address] Sep, PTSD (post-traumatic stress disorder) F43.10 ; Cannabis use disorder, moderate, dependence F12.20 and Suicidal risk R45.89 [id number] [place] [address] Sep, [facility] [id number] [place] [address] Jul, Bipolar disorder, unspecified F31.9 ; PTSD (post-traumatic stress disorder) F43.10 and Panic disorder with agoraphobia F40.01 [facility] [id number] [place] [address] Jul, Obstructive sleep apnea syndrome G47.33 ; Moderate persistent asthma without complication J45.40 and Cigarette nicotine dependence with other nicotine-induced disorder F17.218 [facility] [id number] [place] [address] Jul, [facility] [address] [address] Jul, [facility] [id number] [place] [address] May, [facility] [address] [address] May, [facility] [id number] [place] [address] May, [facility] [id number] [place] [address] Apr, [facility] [id number] [place] [address] Apr, Bipolar disorder, unspecified F31.9 ; PTSD (post-traumatic stress disorder) F43.10 ; Panic disorder with agoraphobia F40.01 and Cannabis use disorder, moderate, dependence F12.20 [facility] [id number] [place] [address] Mar, Uncomplicated asthma, unspecified asthma severity J45.909 [facility] [id number] [place] [address] Mar, [facility] [address] [address] Mar, Moderate persistent asthma without complication J45.40 ; Gastroesophageal reflux disease without esophagitis K21.9 and Cigarette nicotine dependence with other nicotine-induced disorder F17.218 [address] [id number] [place] [address] Feb, [id number] [place] [address] Jan, Bipolar disorder, unspecified F31.9 ; PTSD (post-traumatic stress disorder) F43.10 ; Panic disorder with agoraphobia F40.01 and Cannabis use disorder, moderate, dependence F12.20 [address] [id number] [place] [address] December, [id number] [place] [address] Nov, [id number] [place] [address] Nov, Bipolar disorder, unspecified F31.9 ; PTSD (post-traumatic stress disorder) F43.10 ; Panic disorder with agoraphobia F40.01 and Cannabis use disorder, moderate, dependence F12.20 [address] [place] [address] Oct, [place] [id number] [place] [address] Oct, [place] [id number] [place] [address] Sep, [place] [id number] [place] [address] Sep, Bipolar disorder, unspecified F31.9 ; PTSD (post-traumatic stress disorder) F43.10 ; Panic disorder with agoraphobia F40.01 and Cannabis use disorder, moderate, dependence F12.20 [address] [id number] [place] [address] Aug, [facility] [id number] [place] [address] Aug, [facility] [address] [address] Aug, Bipolar disorder, unspecified F31.9 ; PTSD (post-traumatic stress disorder) F43.10 ; Panic disorder with agoraphobia F40.01 and Cannabis use disorder, moderate, dependence F12.20 [facility] [address] [address] Jul, [facility] [address] [address] Apr, GERD (gastroesophageal reflux disease) 530.81 and Internal hemorrhoids 455.[address] [address] Feb, Rectal bleeding 569.3 and Hemorrhoids 455.6 [facility] [address] [address] Jan, Sinusitis 473.9 and Otitis media 382.9 [address] [address] December, [facility] [address] [address] Nov, [facility] [address] [address] Nov, [facility] [id number] [place] [address] Oct, [facility] [address] [address] Oct, [facility] [address] [address] Sep, [facility] [address] [address] Sep, [facility] [place] [facility] [address] [id number] [place] [address] Aug, [facility] [place] [facility] [address] [id number] [place] [address] Aug, [facility] [place] [facility] [address] [id number] [place] [address] Jul, [facility] [place] [facility] [address] [id number] [place] [address] Jul, [facility] [place] [facility] [address] [id number] [place] [address] Jul, [facility] [place] [facility] [address] [id number] [place] [address] Jul, [facility] [place] [facility] [address] [id number] [place] [address] Jul, [facility] [place] [facility] [address] [id number] [place] [address] Jul, [facility] [place] [facility] [address] [id number] [place] [address] Jul, [facility] [place] [facility] [address] [id number] [place] [address] Jul, [facility] [place] [facility] [address] [id number] [place] [address] Jun, [facility] [place] [facility] [address] [id number], [place] [address] Jun, [facility] [place] [facility] [address] [id number] [place] [address] Jun, [facility] [place] [facility] [address] [id number] [place] [address] Jun, [facility] [place] [facility] [address] [id number] [place] [address] May, [facility] [place] [facility] [address] [id number] [place] [address] May, [facility] [place] [facility] [address] [id number] [place] [address] May, [facility] [place] [facility] [address] [id number] [place] [address] May, [facility] [place] [facility] [address] [id number] [place] [address] Apr, [facility] [place] [facility] [address] [id number] [place] [address] Apr, [facility] [place] [facility] [address] [id number] [place] [address] Apr, [facility] [place] [facility] [address] [id number] [place] [address] Apr, [facility] [place] [facility] [address] [id number] [place] [address] Mar, [facility] [place] [facility] [address] [id number] [place] [address] Mar, [facility] [place] [facility] [address] [id number] [place] [address] Mar, [facility] [place] [facility] [address] [id number] [place] [address] Mar, [facility] [place] [facility] [address] [id number] [place] [address] December, [facility] [place] [facility] [address] [id number] [place] [address] December, [facility] [place] [facility] [address] [id number] [place] [address] Nov, [facility] [place] [facility] [address] [id number] [place] [address] Nov, [facility] [place] [facility] [address] [id number] [place] [address] Sep, [facility] [place] [facility] [address] [id number] [place] [address] Sep, 2013 [facility] [place] [facility] [address] [id number] [place] [address] Sep, [facility] [place] [facility] [address] [id number] [place] [address] Sep, [facility] [place] [facility] [address] [id number] [place] [address] Aug, [facility] [place] [facility] [address] [id number] [place] [address] Jul, [facility] [place] [facility] [address] [id number] [place] [address] Jul, [facility] [place] [facility] [address] [id number] [place] [address] Jun, [facility] [place] [facility] [address] [id number] [place] [address] Jun, [facility] [place] [facility] [address] [id number] [place] [address] May, [facility] [place] [facility] [address] [id number] [place] [address] May, [facility] [place] [facility] [address] [facility] [id number] [place] [address] May, [facility] [place] [facility] [address] [id number], [place] [address] 17 Apr, 2012 [facility] [place] [facility] [address] [id number] [place] [address] 16 Apr, 2012 [facility] [place] [facility] [address] [id number] [place] [address] 09 Apr, 2012 [facility] [place] [facility] [address] [id number] [place] [address] 09 Apr, 2012 [facility] [place] [facility] [address] [id number] [place] [address] 30 Mar, 2013 [facility] [address] [id number] [place] [address] Mar, [facility] [place] [facility] [address] [id number] [place] [address] December, [facility] [place] [facility] [address] [id number] [place] [address] Oct, [facility] [place] [facility] [address] [id number] [place] [address] Oct, [facility] [place] [facility] [address] [id number] [place] [address] Aug, [facility] [place] [facility] [address] [id number] [place] [address] 17 Jul, 2012 [facility] [place] [facility] [address] [id number] [place] [address] 17 Jul, 2012 [facility] [place] [facility] [address] [id number] [place] [address] Jul, [facility] [place] [facility] [address] [id number] [place] [address] 13 Jul, 2012 [facility] [place] [facility] [address] [id number] [place] [address] 14 Jun, 2012 [facility] [place] [facility] [address] [id number] [place] [address] 14 Jun, 2012 [facility] [place] [facility] [address] [id number] [place] [address] 14 Mar, 2012 [facility] [place] [facility] [address] [id number] [place] [address] 16 Feb, 2012 [facility] [place] [facility] [address] [id number] [place] [address] 16 Feb, 2012 [facility] [place] [facility] [address] [id number] [place] [address] 15 Dec, 2011 [facility] [place] [facility] [address] [id number] [place] [address] 17 Nov, 2011 [facility] [address] [id number] [place] [address] Oct, [facility] [place] [facility] [address] [id number] [place] [address] Oct, [facility] [address] [id number] [place] [address] Sep, [facility] [place] [facility] [address] [id number] [place] [address] Sep, [facility] [address] [id number] [place] [address] Aug, [facility] [address] [id number] [place] [address] Aug, [facility] [address] [id number] [place] [address] Jul, [facility] [address] [id number] [place] [address] Jul, [facility] [address] [id number] [place] [address] Jul, [facility] [address] [id number] [place] [address] Jun, [facility] [address] [id number] [place] [address] May, [facility] [address] [id number] [place] [address] Apr, [facility] [place] [facility] [address] [id number] [place] [address] Feb, [facility] [place] [facility] [address] [id number] [place] [address] Sep, [facility] [place] [facility] [address] [id number] [place] [address] Jul, [facility] [address] [id number] [address] Jul, [facility] [id number], [place] [address] Jul, [facility] [address] [id number], [place] [address] Jul, [facility] [id number], [place] [address] Jun, [facility] [id number], [place] [address] Feb, [facility] [id number], [place] [address] Jan, [facility] [id number], [place] [address] Feb, [facility] [address] [id number] [address] Jul, IMMUNIZATIONS No Known Immunizations SOCIAL HISTORY Never Assessed REASON FOR VISIT EMR[facility] PLAN OF CARE VITAL SIGNS MEDICATIONS Unknown [...]
--- OUTSIDE RECORDS SUMMARY | 2019-02-25 21:14 | XMS REPORT ---
Author Author Migration, Doctor Organization [facility] Address Unknown Phone Unavailable Care Team Providers Care Automation Qa Analyst Name Role Phone Migration, Doctor Unavailable Unavailable PROBLEMS Type Condition ICD9-CM Code SHJ41-VQ Code Onset Dates Condition Status SNOMED Code Problem Panic disorder with agoraphobia F40.01 Active 25474084 Problem Bipolar disorder, unspecified F31.9 Active 81925293 Problem Gastroesophageal reflux disease without esophagitis K21.9 Active 778128819 Problem Cannabis use disorder, moderate, dependence F12.20 Active 33492406 Problem Moderate persistent asthma without complication J45.40 Active 300376452 Problem Cigarette nicotine dependence with other nicotine-induced disorder F17.218 Active 78977590 Problem Cannabis dependence F12.20 Active 40022767 Problem Post-traumatic stress disorder F43.10 Active 44003828 Problem Chronic post-traumatic stress disorder (PTSD) F43.12 Active 126521644 Problem Seizures R56.9 Active 54765220 Problem Anxiety, generalized F41.1 Active 23479128 Problem Moderate persistent asthma, uncomplicated J45.40 Active 163499164 Problem Obstructive sleep apnea syndrome G47.33 Active 28488150 Problem Adjustment disorder with mixed anxiety and depressed mood F43.23 Active 52149917 Problem Adjustment disorder with anxious mood F43.22 Active 84683462 Problem Adjustment disorder with depressed mood F43.21 Active 43022883 Problem Other chronic pain G89.29 Active [id number] ALLERGIES No Information ENCOUNTERS Encounter Location Date Diagnosis [facility] [id number] [address] December, [facility] [address], [place] [address] Nov, [facility] [address], [place] [address] 11 Nov, 2018 Moderate persistent asthma, uncomplicated J45.40 [facility] [id number], [place] [address] Nov, Pleurisy R09.1 and Bronchitis J40 [facility] [id number] [place] [address] Oct, Gastroesophageal reflux disease without esophagitis K21.9 [facility] [id number] [place] [address] Oct, [facility] [address] [address] Oct, [facility] [id number] [place] [address] Oct, [facility] [address] [address] Oct, [facility] [address] [address] Oct, Pneumonia of left lower lobe due to infectious organism J18.1 [facility] [id number] [place] [address] Oct, Pleuritis R09.1 [facility] [address] [address] Oct, [facility] [id number] [place] [address] Oct, Bipolar disorder, unspecified F31.9 ; Panic disorder with agoraphobia F40.01 ; Chronic post-traumatic stress disorder (PTSD) F43.12 and Cannabis use disorder, moderate, dependence F12.20 [facility] [id number] [place] [address] Sep, [facility] [address] [address] Sep, Rib pain R07.81 and Eustachian tube dysfunction H69.80 [facility] [id number] [place] [address] Sep, [facility] [id number] [place] [address] Sep, [facility] [id number] [place] [address] Aug, [facility] [id number] [place] [address] Aug, Bipolar disorder, unspecified F31.9 ; Chronic post-traumatic stress disorder (PTSD) F43.12 ; Cannabis use disorder, moderate, dependence F12.20 and Psychogenic nonepileptic seizure F44.5 [facility] [id number] [place] [address] Aug, [facility] [id number] [place] [address] Aug, [facility] [id number] [place] [address] Jul, [facility] [id number] [place] [address] Jul, Bipolar disorder, unspecified F31.9 ; Chronic post-traumatic stress disorder (PTSD) F43.12 ; Panic disorder with agoraphobia F40.01 and Cannabis use disorder, moderate, dependence F12.20 [facility] [id number] [place] [address] Jul, [facility] [id number] [place] [address] Jun, [facility] [id number] [place] [address] Jun, [facility] [id number] [place] [address] Jun, [facility] [id number] [place] [address] Jun, Seizures R56.9 [facility] [id number] [place] [address] Jun, [facility] [address], [place] [address] May, [facility] [address], [place] [address] May, [facility] [id number], [place] [address] May, [facility] [id number] [place] [address] May, [facility] [id number] [place] [address] May, [facility] [id number] [place] [address] May, [facility] [id number] [place] [address] May, [facility] [id number] [place] [address] May, Seizures R56.9 [facility] [id number] [place] [address] May, [facility] [address], [place] [address] Apr, [facility] [address], [place] [address] Apr, [facility] [address], [place] [address] Apr, [facility] [id number] [place] [address] Apr, [facility] [address], [place] [address] Apr, Bipolar disorder, unspecified F31.9 ; Panic disorder with agoraphobia F40.01 and Cannabis use disorder, moderate, dependence F12.20 [address], [place] [address] Mar, [id number] [place] [address] Mar, [id number] [place] [address] Jan, Low back pain M54.5 ; Moderate persistent asthma without complication J45.40 and Other chronic pain G89.29 [address] [id number] [place] [address] Jan, Moderate persistent asthma without complication J45.40 ; Low back pain M54.5 ; Other chronic pain G89.29 ; Gastroesophageal reflux disease without esophagitis K21.9 and Cigarette nicotine dependence with other nicotine- induced disorder F17.218 [address] [place] [address] December, Bipolar disorder, unspecified F31.9 ; Panic disorder with agoraphobia F40.01 ; Cannabis use disorder, moderate, dependence F12.20 and Chronic post- traumatic stress disorder (PTSD) F43.12 [address] [id number] [place] [address] December, [id number] [place] [address] December, [id number] [place] [address] Nov, [address] [place] [address] Oct, Bipolar disorder, unspecified F31.9 ; Chronic post-traumatic stress disorder (PTSD) F43.12 ; Panic disorder with agoraphobia F40.01 and Cannabis use disorder, moderate, dependence F12.20 [address] [place] [address] Sep, [address] [address] Sep, [address] [address] Aug, [address] [address] Aug, Cannabis use disorder, moderate, dependence F12.20 ; Panic disorder with agoraphobia F40.01 and Bipolar affective disorder, currently depressed, moderate F31.32 [address] [address] May, Diarrhea of presumed infectious origin A09 and Nausea and vomiting, intractability of vomiting not specified, unspecified vomiting type R11.2 [address] [address] Apr, [address] [address] Mar, Nausea R11.0 and Gastroenteritis K52.9 [address] [address] Mar, Gastroesophageal reflux disease without esophagitis K21.9 [address] [address] Mar, Gastroesophageal reflux disease without esophagitis K21.9 [address] [address] Mar, [address] [address] Mar, [address] [address] Mar, [address] [address] Feb, Acute pain of right shoulder M25.511 and Muscle spasm M62.838 [address] [address] Feb, Acute labyrinthitis, unspecified laterality H83.09 [id number] [place] [address] December, [id number] [place] [address] December, [id number] [place] [address] December, Cannabis use disorder, moderate, dependence F12.20 ; Anxiety, generalized F41.1 ; Adjustment disorder with mixed anxiety and depressed mood F43.23 and Chronic post-traumatic stress disorder (PTSD) F43.12 [id number] [place] [address] December, [id number] [place] [address] December, [id number] [place] [address] Nov, Acute nasopharyngitis J00 [id number] [place] [address] Nov, Cannabis use disorder, moderate, dependence F12.20 ; Anxiety, generalized F41.1 ; Adjustment disorder with mixed anxiety and depressed mood F43.23 and Chronic post-traumatic stress disorder (PTSD) F43.12 [id number] [place] [address] Nov, Cannabis use disorder, moderate, dependence F12.20 ; Anxiety, generalized F41.1 ; Adjustment disorder with mixed anxiety and depressed mood F43.23 and Chronic post-traumatic stress disorder (PTSD) F43.12 [id number] [place], [place] [address] Oct, Diarrhea, unspecified R19.7 ; Vomiting, unspecified R11.10 and Viral gastroenteritis A08.4 [id number] [place] [address] 29 Oct, 2016 Bipolar disorder, unspecified F31.9 ; Panic disorder with agoraphobia F40.01 ; Cannabis use disorder, moderate, dependence F12.20 ; Cigarette nicotine dependence with other nicotine-induced disorder F17.218 ; Anxiety, generalized F41.1 ; Post-traumatic stress disorder F43.10 and Adjustment disorder with mixed anxiety and depressed mood F43.23 [address] [place] [address] Oct, Bipolar disorder, unspecified F31.9 ; Chronic post-traumatic stress disorder (PTSD) F43.12 ; Panic disorder with agoraphobia F40.01 and Cannabis use disorder, moderate, dependence F12.20 [address] [place] [address] Oct, Bipolar disorder, unspecified F31.9 ; Panic disorder with agoraphobia F40.01 ; Cannabis use disorder, moderate, dependence F12.20 ; Cigarette nicotine dependence with other nicotine-induced disorder F17.218 ; Anxiety, generalized F41.1 ; Post-traumatic stress disorder F43.10 and Adjustment disorder with mixed anxiety and depressed mood F43.23 [address] [place] [address] 14 Oct, 2016 Viral gastroenteritis A08.4 [address] [place] [address] 09 Oct, 2016 Anxiety, generalized F41.1 ; Post-traumatic stress disorder F43.10 ; Adjustment disorder with depressed mood F43.21 and Adjustment disorder with anxious mood F43.22 [address] [place] [address] 07 Oct, 2016 Panic disorder with agoraphobia F40.01 ; Cannabis use disorder, moderate, dependence F12.20 ; Bipolar disorder, unspecified F31.9 ; Cigarette nicotine dependence with other nicotine-induced disorder F17.218 ; Adjustment disorder with anxious mood F43.22 ; Anxiety, generalized F41.1 ; Post-traumatic stress disorder F43.10 and Cannabis dependence F12.20 [address], [place] [address] Oct, Bipolar disorder, unspecified F31.9 and Chronic post-traumatic stress disorder (PTSD) F43.12 [address] [address] Oct, Bipolar disorder, unspecified F31.9 and Chronic post-traumatic stress disorder (PTSD) F43.12 [id number] [place] [address] 28 Sep, 2016 Bipolar disorder, unspecified F31.9 ; Panic disorder with agoraphobia F40.01 ; PTSD (post-traumatic stress disorder) F43.10 ; Cannabis use disorder, moderate, dependence F12.20 ; Cannabis dependence F12.20 and Anxiety, generalized F41.1 [address] [place] [address] Sep, Cannabis use disorder, moderate, dependence F12.20 ; Anxiety, generalized F41.1 and Adjustment disorder with mixed anxiety and depressed mood F43.23 [id number] [place] [address] 15 Sep, 2016 Bipolar disorder, unspecified F31.9 ; Panic disorder with agoraphobia F40.01 ; PTSD (post-traumatic stress disorder) F43.10 ; Cannabis use disorder, moderate, dependence F12.20 ; Cannabis dependence F12.20 and Anxiety, generalized F41.1 [address] [place] [address] 10 Sep, 2016 Bipolar disorder, unspecified F31.9 ; Panic disorder with agoraphobia F40.01 ; PTSD (post-traumatic stress disorder) F43.10 ; Cannabis use disorder, moderate, dependence F12.20 ; Cannabis dependence F12.20 and Anxiety, generalized F41.1 [address] [place] [address] 08 Sep, 2016 Bipolar disorder, unspecified F31.9 ; Post-traumatic stress disorder F43.10 and Cannabis dependence F12.20 [address] [place] [address] 08 Sep, 2016 [id number] [place] [address] 08 Sep, 2016 Suicidal behavior without attempted self-injury R46.89 [id number] [place] [address] Sep, [id number] [place] [address] Sep, Cannabis use disorder, moderate, dependence F12.20 ; Panic disorder with agoraphobia F40.01 ; Bipolar disorder, unspecified F31.9 and Anxiety, generalized F41.1 [id number] [place] [address] Sep, Bipolar disorder, unspecified F31.9 ; PTSD (post-traumatic stress disorder) F43.10 ; Panic disorder with agoraphobia F40.01 and Cannabis use disorder, moderate, dependence F12.20 [id number] [place] [address] Sep, [id number] [place] [address] Sep, PTSD (post-traumatic stress disorder) F43.10 ; Cannabis use disorder, moderate, dependence F12.20 and Suicidal risk R45.89 [id number] [place] [address] Sep, [id number] [place] [address] Jul, Bipolar disorder, unspecified F31.9 ; PTSD (post-traumatic stress disorder) F43.10 and Panic disorder with agoraphobia F40.01 [id number] [place] [address] Jul, Obstructive sleep apnea syndrome G47.33 ; Moderate persistent asthma without complication J45.40 and Cigarette nicotine dependence with other nicotine-induced disorder F17.218 [id number] [place] [address] 05 Jul, 2016 [id number] [place] [address] Jul, [facility] [id number] [place] [address] May, [address] [address] May, [address] [id number] [place] [address] May, [address] [id number] [place] [address] Apr, [id number] [place] [address] Apr, Bipolar disorder, unspecified F31.9 ; PTSD (post-traumatic stress disorder) F43.10 ; Panic disorder with agoraphobia F40.01 and Cannabis use disorder, moderate, dependence F12.20 [id number] [place] [address] Mar, Uncomplicated asthma, unspecified asthma severity J45.909 [id number] [place] [address] Mar, [id number] [place] [address] Mar, Moderate persistent asthma without complication J45.40 ; Gastroesophageal reflux disease without esophagitis K21.9 and Cigarette nicotine dependence with other nicotine-induced disorder F17.218 [id number] [place] [address] Feb, [facility] [id number] [place] [address] Jan, Bipolar disorder, unspecified F31.9 ; PTSD (post-traumatic stress disorder) F43.10 ; Panic disorder with agoraphobia F40.01 and Cannabis use disorder, moderate, dependence F12.20 [address], [place] [address] December, [facility] [address], [place] [address] Nov, [address] [place] [id number] [place] [address] Nov, Bipolar disorder, unspecified F31.9 ; PTSD (post-traumatic stress disorder) F43.10 ; Panic disorder with agoraphobia F40.01 and Cannabis use disorder, moderate, dependence F12.20 [address], [place] [address] Oct, [address] [place] [id number] [place] [address] Oct, [address], [place] [address] Sep, [address] [place] [address] Sep, Bipolar disorder, unspecified F31.9 ; PTSD (post-traumatic stress disorder) F43.10 ; Panic disorder with agoraphobia F40.01 and Cannabis use disorder, moderate, dependence F12.20 [address] [place] [address] Aug, [address], [place] [address] Aug, [address] [place] [id number] [place] [address] Aug, Bipolar disorder, unspecified F31.9 ; PTSD (post-traumatic stress disorder) F43.10 ; Panic disorder with agoraphobia F40.01 and Cannabis use disorder, moderate, dependence F12.20 [address] [id number] [place] [address] Jul, [facility] [id number] [place] [address] Apr, GERD (gastroesophageal reflux disease) 530.81 and Internal hemorrhoids 455.0 [facility] [id number] [place] [address] Feb, Rectal bleeding 569.3 and Hemorrhoids 455.6 [facility] [id number] [place] [address] Jan, Sinusitis 473.9 and Otitis media 382.9 [facility] [address] [address] December, [facility] [id number] [place] [address] Nov, [facility] [id number] [place] [address] Nov, [facility] [id number] [place] [address] Oct, [facility] [id number] [place] [address] Oct, [facility] [id number] [place] [address] Sep, [facility] [id number] [place] [address] Sep, [facility] [id number] [place] [address] Aug, [facility] [id number] [place] [address] Aug, [facility] [id number] [place] [address] Jul, [facility] [id number] [place] [address] Jul, [facility] [place] [facility] [address] [id number] [place] [address] Jul, [facility] [place] [facility] [address] [id number] [place] [address] Jul, [facility] [place] [facility] [address] [id number] [place] [address] Jul, [facility] [place] [facility] [address] [id number] [place] [address] Jul, [facility] [place] [facility] [address] [id number] [place] [address] Jul, [facility] [place] [facility] [address] [id number] [place] [address] Jul, [facility] [place] [facility] [address] [id number] [address] Jun, [facility] [place] [facility] [address] [id number] [place] [address] Jun, [facility] [place] [facility] [address] [id number], [place] [address] Jun, [facility] [place] [facility] [address] [id number], [place] [address] Jun, [facility] [place] [facility] [address] [id number], [place] [address] May, [facility] [place] [facility] [address] [id number], [place] [address] May, [facility] [place] [facility] [address] [id number], [place] [address] May, [facility] [place] [facility] [address] [id number], [place] [address] May, [facility] [place] [facility] [address] [id number], [place] [address] Apr, [facility] [place] [facility] [address] [id number] [place] [id number] 08 Apr, 2014 [facility] [place] [facility] [address] [id number] [place] [address] Apr, [facility] [place] [facility] [address] [id number] [place] [address] Apr, [facility] [place] [facility] [address] [id number] [place] [address] Mar, [facility] [place] [facility] [address] [id number] [place] [address] Mar, [facility] [place] [facility] [address] [id number] [place] [address] Mar, [facility] [place] [facility] [address] [id number] [place] [address] Mar, [facility] [place] [facility] [address] [id number] [place] [address] December, [facility] [place] [facility] [address] [id number] [place] [address] December, [facility] [place] [facility] [address] [id number] [place] [address] Nov, [facility] [place] [facility] [address] [id number] [place] [address] Nov, [facility] [place] [facility] [address] [id number] [place] [address] Sep, [facility] [place] [facility] [address] [id number] [place] [address] Sep, [facility] [place] [facility] [address] [id number] [place] [address] Sep, [facility] [place] [facility] [address] [id number] [place] [address] Sep, [facility] [place] [facility] [address] [id number] [place] [address] Aug, [facility] [place] [facility] [address] [id number] [place] [address] Jul, [facility] [place] [facility] [address] [id number] [place] [address] Jul, [facility] [place] [facility] [address] [facility] [id number] [place] [address] Jun, [facility] [place] [facility] [address] [id number] [place] [address] Jun, [facility] [place] [facility] [address] [id number] [place] [address] May, [facility] [place] [facility] [address] [id number] [place] [address] May, [facility] [place] [facility] [address] [id number] [place] [address] May, [facility] [place] [facility] [address] [id number] [place] [address] 17 Apr, 2013 [facility] [place] [facility] [address] [id number] [place] [address] 16 Apr, 2013 [facility] [place] [facility] [address] [id number] [place] [address] Apr, [facility] [place] [facility] [address] [id number], [place] [address] Apr, [facility] [place] [facility] [address] [id number], [place] [address] Mar, [facility] [place] [facility] [address] [id number] [place] [address] Mar, [facility] [place] [facility] [address] [id number] [place] [address] December, [facility] [place] [facility] [address] [id number] [place] [address] Oct, [facility] [place] [facility] [address] [id number] [place] [address] 11 Oct, 2012 [facility] [address] [id number] [place] [address] 10 Aug, 2012 [facility] [address] [id number] [place] [address] 17 Jul, 2012 [facility] [address] [id number] [place] [address] 17 Jul, 2012 [facility] [address] [id number] [place] [address] 13 Jul, 2012 [facility] [address] [id number] [place] [address] 13 Jul, 2012 [facility] [address] [id number] [place] [address] 14 Jun, 2012 [facility] [address] [id number] [place] [address] 14 Jun, 2012 [facility] [address] [id number] [place] [address] 14 Mar, 2012 [facility] [address] [id number] [place] [address] 16 Feb, 2012 [facility] [address] [id number] [place] [address] 16 Feb, 2012 [facility] [address] [id number] [place] [address] 15 Dec, 2011 [facility] [address] [id number] [place] [address] 17 Nov, 2011 [facility] [place] [facility] [address] [id number] [place] [address] 23 Oct, 2011 [facility] [place] [facility] [address] [id number] [place] [address] 20 Oct, 2011 [facility] [address] [id number] [place] [address] 09 Sep, 2011 [facility] [address] [id number] [place] [address] Sep, [facility] [place] [facility] [address] [id number] [place] [address] Aug, [facility] [place] [facility] [address] [id number] [place] [address] 13 Aug, 2011 [facility] [place] [facility] [address] [id number] [place] [address] Jul, [facility] [place] [facility] [address] [id number] [place] [address] Jul, [facility] [place] [facility] [address] [id number] [place] [address] Jul, [facility] [place] [facility] [address] [id number] [place] [address] Jun, [facility] [place] [facility] [address] [id number] [place] [address] May, [facility] [place] [facility] [address] [id number] [place] [address] Apr, [facility] [place] [facility] [address] [id number] [place] [address] Feb, [facility] [place] [facility] [address] [id number] [place] [address] Sep, [facility] [place] [facility] [address] [id number] [place] [address] Jul, [facility] [place] [facility] [address] [id number] [place] [address] Jul, [facility] [place] [facility] [address] [id number] [place] [address] Jul, [facility] [place] [facility] [address] [id number] [place] [address] Jul, [facility] [place] [facility] [address] [id number], [place] [address] Jun, [facility] [address] [facility] [id number], [place] [address] Feb, [facility] [address] [id number], [place] [address] Jan, [facility] [address] [facility] [id number], [place] [address] Feb, [facility] [address] [facility] [id number], [place] [address] Jul, IMMUNIZATIONS No Known Immunizations SOCIAL HISTORY Never Assessed REASON FOR VISIT EMR-[facility] PLAN OF CARE VITAL SIGNS MEDICATIONS Unknown [...]
--- OUTSIDE RECORDS SUMMARY | 2019-02-25 21:35 | XMS REPORT | Continuity of Care Document ---
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 PERSONAL HISTORY OF OTHER DISEASES OF TH 02/05/2019 AMI CALLAHAN APRN Ot Z88.0 ALLERGY STATUS TO PENICILLIN 02/05/2019 AMI CALLAHAN SUPERVISOR SANDING Ot Z88.5 ALLERGY STATUS TO NARCOTIC AGENT STATUS Procedures Code Description [place] [address] URINE DRUG SCREEN (IN-HOUSE) 08/19/2012 20547 URINE DRUG SCREEN (IN-HOUSE) 12/10/2012 41780 ROUTINE VENIPUNCTURE 04/25/2013 33520 URINE DRUG SCREEN (IN-HOUSE) 04/25/2013 67381 CMP 04/25/20132431269 GFR CALC (RESULT ONLY) 04/25/2013 63090 ROUTINE VENIPUNCTURE 05/27/2013 36385 ROUTINE VENIPUNCTURE 05/27/2013 09973 CBC 05/27/2013 88848 CBC 05/27/2013 General Niranjan Cerda 05/31/2013 General Niranjan Cerda 06/20/2013 61259 [facility] 04/03/2014 34234 [employer] 07/17/2014 66317 ROUTINE VENIPUNCTURE 07/20/20141468444 GFR CALC (RESULT ONLY) 07/20/201468254 [facility] 07/20/2014 Results Test Result Range Complete blood [...] Automated erythrocyte mean corpuscular hemoglobin concentration measurement (mass/volume) 35 g/dL 32-36 Automated erythrocyte distribution width ratio 13.8 % 10.0- 14.5 Automated blood platelet count (count/volume) 282 10*3/uL [...] Blood monocytes automated count (number/volume) 1.2 10*3 0.0- 1.0 Automated eosinophil count 0.2 10*3/uL 0.0-0.3 Automated [...] Serum or plasma aspartate aminotransferase measurement (enzymatic activity/volume) 10 U/L 5-34 Serum or plasma alanine aminotransferase measurement (enzymatic activity/volume) 13 U/L 0-55 Serum or plasma protein [...] thyrotropin measurement by detection limit <=0.05 miu/l (units/volume) - 09/15/16 11:10 Serum or plasma thyrotropin measurement by detection limit <=0.05 miu/l (units/volume) 0.82 u[iU]/mL 0.35-4.94 Urine drug screening test [...] gravity of urine by test strip 1.010 1.016-1.022 Urine protein assay by test strip, semi-quantitative [...] sediment leukocyte count by microscopy (number/high power field) NONE NRG Bacteria detection in urine sediment [...] Automated erythrocyte mean corpuscular hemoglobin concentration measurement (mass/volume) 35 g/dL 32-36 Automated erythrocyte distribution width ratio 13.9 % 10.0- 14.5 Automated blood platelet count (count/volume) 274 10*3/uL [...] Blood monocytes automated count (number/volume) 0.8 10*3 0.0- 1.0 Automated eosinophil count 0.4 10*3/uL 0.0-0.3 Automated [...] Serum or plasma aspartate aminotransferase measurement (enzymatic activity/volume) 13 U/L 5-34 Serum or plasma alanine aminotransferase measurement (enzymatic activity/volume) 12 U/L 0-55 Serum or plasma protein measurement (mass/volume) 6.9 g/dL 6.4-8.2 Serum or plasma albumin measurement (mass/volume) 4.3 g/dL 3.2-4.5 Magnesium - 12/07/17 09:35 Magnesium 2.3 mg/dL 1.8-2.4 Serum or plasma creatine kinase measurement (enzymatic activity/volume) - 12/07/17 09:35 Serum or plasma creatine kinase measurement (enzymatic activity/volume) 151 U/L 30-200 Serum or plasma creatine kinase MB measurement (enzymatic activity/volume) - 12/07/17 09:35 Serum or plasma creatine kinase MB measurement (enzymatic activity/volume) 1.2 ng/mL <6.6 Serum or plasma troponin i.cardiac measurement (mass/volume) - 12/07/17 09:35 Serum or plasma troponin i.cardiac measurement (mass/volume) < ng/mL <0.30 Serum or plasma amylase measurement (enzymatic activity/volume) - 12/07/17 09:35 Serum or plasma amylase measurement (enzymatic activity/volume) 55 U/L 25-125 Lipase - 12/07/17 09:35 Lipase 27 [...] Automated erythrocyte mean corpuscular hemoglobin concentration measurement (mass/volume) 36 g/dL 32-36 Automated erythrocyte distribution width ratio 13.6 % 10.0- 14.5 Automated blood platelet count (count/volume) 303 10*3/uL [...] Blood monocytes automated count (number/volume) 1.2 10*3 0.0- 1.0 Automated eosinophil count 0.4 10*3/uL 0.0-0.3 Automated [...] Serum or plasma aspartate aminotransferase measurement (enzymatic activity/volume) 12 U/L 5-34 Serum or plasma alanine aminotransferase measurement (enzymatic activity/volume) 15 U/L 0-55 Serum or plasma protein [...] Blood erythrocyte morphology finding identification NORMAL NRG Complete blood count (CBC) with automated white blood cell (WBC) differential - 11/23/18 08:25 Blood leukocytes automated count (number/volume) 13.7 10*3/uL 4.3-11.0 Blood erythrocytes automated count (number/volume) 5.06 10*6/uL 4.35-5.85 Venous blood hemoglobin measurement (mass/volume) 14.7 g/dL 13.3-17.7 Blood hematocrit (volume fraction) 44 % 40-54 Automated erythrocyte mean corpuscular volume 86 [foz_us] 80-99 Automated erythrocyte mean corpuscular hemoglobin (mass per erythrocyte) 29 pg 25-34 Automated erythrocyte mean corpuscular hemoglobin concentration measurement (mass/volume) 34 g/dL 32-36 Automated erythrocyte distribution width ratio 13.8 % 10.0- 14.5 Automated blood platelet count (count/volume) 307 10*3/uL 130-400 Automated blood platelet mean volume measurement 9.7 [foz_us] 7.4-10.4 Automated blood neutrophils/100 leukocytes 71 % 42-75 Automated blood lymphocytes/100 leukocytes 13 % 12-44 Blood monocytes/100 leukocytes 10 % 0-12 Automated blood eosinophils/100 leukocytes 6 % 0-10 Automated blood basophils/100 leukocytes 1 % 0-10 Blood neutrophils automated count (number/volume) 9.7 10*3 1.8-7.8 Blood lymphocytes automated count (number/volume) 1.7 10*3 1.0-4.0 Blood monocytes automated count (number/volume) 1.4 10*3 0.0- 1.0 Automated eosinophil count 0.8 10*3/uL 0.0-0.3 Automated blood basophil count (count/volume) 0.1 10*3/uL 0.0-0.1 Comprehensive metabolic panel - 11/23/18 08:25 Serum or plasma sodium measurement (moles/volume) 140 mmol/L 135-145 Serum or plasma potassium measurement (moles/volume) 4.2 mmol/L 3.6-5.0 Serum or plasma chloride measurement (moles/volume) 104 mmol/L 98-107 Carbon dioxide 25 mmol/L 21-32 Serum or plasma anion gap determination (moles/volume) 11 mmol/L 5-14 Serum or plasma urea nitrogen measurement (mass/volume) 14 mg/dL 7-18 Serum or plasma creatinine measurement (mass/volume) 1.02 mg/dL 0.60-1.30 Serum or plasma urea nitrogen/creatinine mass ratio 14 NRG Serum or plasma creatinine measurement with calculation of estimated glomerular filtration rate > NRG Serum or plasma glucose measurement (mass/volume) 122 mg/dL 70-105 Serum or plasma calcium measurement (mass/volume) 9.5 mg/dL 8.5-10.1 Serum or plasma total bilirubin measurement (mass/volume) 0.2 mg/dL 0.1-1.0 Serum or plasma alkaline phosphatase measurement (enzymatic activity/volume) 101 U/L 40-136 Serum or plasma aspartate aminotransferase measurement (enzymatic activity/volume) 15 U/L 5-34 Serum or plasma alanine aminotransferase measurement (enzymatic activity/volume) 24 U/L 0-55 Serum or plasma protein measurement (mass/volume) 6.8 g/dL 6.4-8.2 Serum or plasma albumin measurement (mass/volume) 4.1 g/dL 3.2-4.5 CALCIUM CORRECTED 9.4 mg/dL 8.5-10.1 Serum or plasma troponin i.cardiac measurement (mass/volume) - 11/23/18 08:27 Serum or plasma troponin i.cardiac measurement (mass/volume) < ng/mL <0.028 Complete blood count (CBC) with automated white blood cell (WBC) differential - 02/25/19 15:26 Blood leukocytes automated count (number/volume) 14.5 10*3/uL 4.3-11.0 Blood erythrocytes automated count (number/volume) 5.21 10*6/uL 4.35-5.85 Venous blood hemoglobin measurement (mass/volume) 14.5 g/dL 13.3-17.7 Blood hematocrit (volume fraction) 43 % 40-54 Automated erythrocyte mean corpuscular volume 83 [foz_us] 80-99 Automated erythrocyte mean corpuscular hemoglobin (mass per erythrocyte) 28 pg 25-34 Automated erythrocyte mean corpuscular hemoglobin concentration measurement (mass/volume) 34 g/dL 32-36 Automated erythrocyte distribution width ratio 14.5 % 10.0- 14.5 Automated blood platelet count (count/volume) 312 10*3/uL 130-400 Automated blood platelet mean volume measurement 9.9 [foz_us] 7.4-10.4 Automated blood neutrophils/100 leukocytes 79 % 42-75 Automated blood lymphocytes/100 leukocytes 10 % 12-44 Blood monocytes/100 leukocytes 8 % 0-12 Automated blood eosinophils/100 leukocytes 2 % 0-10 Automated blood basophils/100 leukocytes 0 % 0-10 Blood neutrophils automated count (number/volume) 11.5 10*3 1.8-7.8 Blood lymphocytes automated count (number/volume) 1.5 10*3 1.0-4.0 Blood monocytes automated count (number/volume) 1.2 10*3 0.0- 1.0 Automated eosinophil count 0.3 10*3/uL 0.0-0.3 Automated blood basophil count (count/volume) 0.1 10*3/uL 0.0-0.1 Comprehensive metabolic panel - 02/25/19 15:26 Serum or plasma sodium measurement (moles/volume) 139 mmol/L 135-145 Serum or plasma potassium measurement (moles/volume) 4.1 mmol/L 3.6-5.0 Serum or plasma chloride measurement (moles/volume) 106 mmol/L 98-107 Carbon dioxide 28 mmol/L 21-32 Serum or plasma anion gap determination (moles/volume) 5 mmol/L 5-14 Serum or plasma urea nitrogen measurement (mass/volume) 10 mg/dL 7-18 Serum or plasma creatinine measurement (mass/volume) 0.86 mg/dL 0.60-1.30 Serum or plasma urea nitrogen/creatinine mass ratio 12 NRG Serum or plasma creatinine measurement with calculation of estimated glomerular filtration rate > NRG Serum or plasma glucose measurement (mass/volume) 113 mg/dL 70-105 Serum or plasma calcium measurement (mass/volume) 9.0 mg/dL 8.5-10.1 Serum or plasma total bilirubin measurement (mass/volume) 0.2 mg/dL 0.1-1.0 Serum or plasma alkaline phosphatase measurement (enzymatic activity/volume) 106 U/L 40-136 Serum or plasma aspartate aminotransferase measurement (enzymatic activity/volume) 16 U/L 5-34 Serum or plasma alanine aminotransferase measurement (enzymatic activity/volume) 32 U/L 0-55 Serum or plasma protein measurement (mass/volume) 6.6 g/dL 6.4-8.2 Serum or plasma albumin measurement (mass/volume) 3.9 g/dL 3.2-4.5 CALCIUM CORRECTED 9.1 mg/dL 8.5-10.1 Serum or plasma troponin i.cardiac measurement (mass/volume) - 02/25/19 15:26 Serum or plasma troponin i.cardiac measurement (mass/volume) < ng/mL <0.028 Fibrin D-dimer FEU measurement in platelet poor plasma (mass/volume) - 02/25/19 15:26 Fibrin D-dimer FEU measurement in platelet poor plasma (mass/volume) 0.64 ug/mL 0.00-0.49 Serum or plasma C reactive protein measurement (mass/volume) - 02/25/19 15:26 Serum or plasma C reactive protein measurement (mass/volume) 1.01 mg/dL 0.00-0.50 Manual absolute plasma cell count - 02/25/19 15:26 Blood monocytes/100 leukocytes 4 % NRG Manual blood segmented neutrophils/100 leukocytes 81 % NRG Blood band neutrophils/100 leukocytes 1 % NRG Manual blood lymphocytes/100 leukocytes 12 % NRG Manual eosinophils/100 leukocytes in nose 1 % NRG Manual blood basophils/100 leukocytes 0 % NRG Blood lymphocytes variant/100 leukocytes 1 % NRG Blood erythrocyte morphology finding identification NORMAL NRG Encounters ACCT No. Visit Date/Time Discharge Status Pt. Type Provider Facility Loc./Unit Complaint [id number] 07/20/2014 10:28:00 07/20/2014 23:59:59 CLS Outpatient PETRA GARZON MD [id number] 04/17/2014 12:30:00 04/17/2014 23:59:59 CLS Outpatient EDILSON DOTSON APRN [id number] 03/27/2014 15:44:00 03/27/2014 23:59:59 CLS Outpatient PETRA GARZON MD [id number] 09/19/2013 16:35:00 09/19/2013 23:59:59 CLS Outpatient PETRA GARZON MD [id number] 08/23/2013 08:26:00 08/23/2013 23:59:59 CLS Outpatient NIRANJAN ALATORRE MD [id number] 06/20/2013 14:24:00 06/20/2013 23:59:59 CLS Outpatient RACHEL GRACIA DO [id number] 05/27/2013 08:53:00 05/27/2013 23:59:59 CLS Outpatient PETRA GARZON MD [id number] 04/25/2013 13:26:00 04/25/2013 23:59:59 CLS Outpatient PETRA GARZON MD [id number] 09/03/2012 10:45:00 09/03/2012 23:59:59 CLS Outpatient NASH LIRIANO DDS [id number] 08/19/2012 10:57:00 08/19/2012 23:59:59 CLS Outpatient [id number] 03/23/2012 15:23:00 03/23/2012 23:59:59 CLS Outpatient [id number] 03/23/2012 15:23:00 03/23/2012 23:59:59 CLS Outpatient RYANN FRANK, PETRA [id number] 12/10/2012 13:42:00 Document Registration [id number] 02/25/2019 15:09:00 02/25/2019 17:46:00 DIS Emergency YESENIA GOLDEN MD [facility] ER L SIDE PAIN [id number] 11/23/2018 08:18:00 11/23/2018 12:12:00 DIS Emergency YESENIA GOLDEN MD [facility] ER ABD PAIN [id number] 10/16/2018 18:27:00 10/16/2018 20:46:00 DIS Emergency FIORDALIZA BARTH [facility] ER INJ LEFT SIDE WHEN PICKING UP DOG [id number] 07/07/2018 14:35:00 07/07/2018 16:26:00 DIS Emergency DEVANG HOLLOWAY MD [facility] ER RIB PAIN [id number] 06/08/2018 15:56:00 06/08/2018 17:46:00 DIS Emergency ROSARIO URIOSTEGUI [facility] ER L RIB PAIN [id number] 05/27/2018 10:34:00 05/27/2018 23:59:59 CLS Outpatient RYANN FRANK, PETRA Sanchez [facility] RAD SEIZURES [id number] 05/13/2018 11:27:00 05/13/2018 13:01:00 DIS Outpatient AMI CALLAHAN APRN [facility] ER L SIDE PAIN [id number] 12/07/2017 09:26:00 12/07/2017 10:46:00 DIS Emergency BECCA BURK DO [facility] ER CHEST PAIN [id number] 09/15/2016 10:05:00 09/15/2016 13:10:00 DIS Emergency AMI CALLAHAN APRN [facility] ER SUICIDAL [id number] 01/17/2016 11:07:00 01/17/2016 23:59:59 CLS Outpatient ED FRANK, SCARLETT Sandoval (DDU) [facility] RAD DDU [id number] 12/22/2013 12:03:00 12/22/2013 14:06:00 DIS Emergency BECCA BURK DO K [facility] ER CHEST PAIN [id number] 09/15/2013 14:04:00 09/15/2013 14:55:00 DIS Emergency AMI CALLAHAN [employer]PER[employer]ING [facility] ER ADRIANA HAND PAIN [id number] 07/04/2013 07:56:00 07/04/2013 11:12:00 DIS Outpatient NIRANJAN ALATORRE MD [facility] SDC RECTAL BLEEDING [id number] 06/29/2013 07:34:00 06/29/2013 23:59:59 CLS Outpatient NIRANJAN ALATORRE MD [facility] PREOP RECTAL BLEEDING [id number] 08/14/2011 10:29:00 Document Registration [id number] 02/08/2019 15:00:00 02/08/2019 23:59:59 CLS Outpatient RYANN FRANK, PETRA [facility]
== END 2019-02-25 17:46 | disposition home or self-care (01) ==
LOC: EDUNIT# 15:08 → ER 15:09
DX: R07.89 Other chest pain (principal); J44.9 Chronic obstructive pulmonary disease, unspecified; I10 Essential (primary) hypertension; F32.9 Major depressive disorder, single episode, unspecified; K21.9 Gastro-esophageal reflux disease without esophagitis; F12.10 Cannabis abuse, uncomplicated; F17.210 Nicotine dependence, cigarettes, uncomplicated; Z88.0 Allergy status to penicillin; Z88.5 Allergy status to narcotic agent
CPT/HCPCS: 36415; 71046; 80053; 84484; 85007; 85027; 85379; 86141; 93005; 93041; 96361; 96374

== ENCOUNTER → 2021-03-13 | Outpatient (CLI) | payer SELFPAY ==
--- NOTE | 2021-03-13 13:59 | Diagnostic Imaging Report ---
PROCEDURE: CT head without contrast. TECHNIQUE: Multiple contiguous axial images were obtained through the brain without the use of intravenous contrast. Auto Exposure Controls were utilized during the CT exam to meet ALARA standards for radiation dose reduction. INDICATION: Head trauma with loss of consciousness. FINDINGS: The ventricles and sulci are within normal limits. There is no hydrocephalus or cerebral edema. There is no midline shift or mass effect. There is no intracranial mass, hemorrhage, or extra-axial fluid collection. The visualized paranasal sinuses and mastoid air cells are clear. There are no regional areas of decreased attenuation appreciated to suggest an acute CVA. IMPRESSION: No acute intracranial abnormality. Dictated by: Dictated on workstation # [id number]
== END ==
LOC: RAD 12:45
PROVIDERS: ATTEND Internal Medicine
DX: S06.9X9A Unspecified intracranial injury with loss of consciousness of unspecified duration, initial encounter (principal); X58.XXXA Exposure to other specified factors, initial encounter
CPT/HCPCS: 70450

== ENCOUNTER 2021-04-18 16:17 | Emergency (ER) | payer SELFPAY ==
[~2021-04-18] VITALS: Ht 193 cm; Wt 130.0 kg
--- NOTE | 2021-04-18 17:31 | Diagnostic Imaging Report ---
INDICATION: Left foot injury with pain. EXAMINATION: AP, oblique and lateral views of the left foot were obtained. FINDINGS: No acute fracture or dislocation is identified. No abnormal lytic or sclerotic focus is seen, and there is no radiopaque foreign body. IMPRESSION: No acute abnormality. Dictated by: Dictated on workstation # [id number]
--- NOTE | 2021-04-18 17:37 | ED Lower Extremity ---
General Chief Complaint: Lower Extremity Stated Complaint: L FOOT PAIN Nursing Triage Note: PT ARRIVED PER EMS, PT TO WAITING ROOM. PT CO OF L FOOT PAIN FROM KICKING COUCH STATES UNABLE TO BARE WT Source: patient Exam Limitations: no limitations History of Present Illness Date Seen by Provider: Apr 18, 2021 Time Seen by Provider: 16:45 Initial Comments To ER with reports that he tried to kick his dog and missed and accidentally kicked the shed instead. Onset: just prior to arrival Severity: moderate Pain/Injury Location: left foot Method of Injury: direct blow Modifying Factors: Worse With Movement Allergies and Home Medications Allergies Coded Allergies: Penicillins (Unverified Allergy, Mild, 11/07/09) codeine (Unverified Allergy, Mild, 11/07/09) egg (Verified Allergy, Unknown, 09/15/16) Patient Home Medication List Home Medication List Reviewed: Yes Albuterol (Proair Hfa) 8.5 Gm Hfa.aer.ad, 2 PUFF IH QID PRN for SHORTNESS OF BREATH, (Reported) Entered as Reported by: SHYAM ROCK on 07/04/13 1009 Beclomethasone Dipropionate (Qvar) 7.3 Gm Aer.w.adap, 2 PUFF IH BID, (Reported) Entered as Reported by: SHYAM ROCK on 07/04/13 1012 Crutch (Crutch) 1 Each Each, EACH [facility], (DME) Prescribed by: AMI CALLAHAN on 04/18/21 174 Hydrocodone Bit/Acetaminophen (Lortab 5 Mg Tablet) 1 Tab Tab, 1 EACH PO Q4-6HR PRN for PAIN-MODERATE Prescribed by: FIORDALIZA BARTH on 10/16/182031 Review of Systems Constitutional: see HPI EENTM: see HPI Respiratory: no symptoms reported Cardiovascular: no symptoms reported Genitourinary: no symptoms reported Musculoskeletal: no symptoms reported Skin: no symptoms reported Psychiatric/Neurological: No Symptoms Reported Past Zmgjrfa-Ciqlwt-Qgegla Hx Patient Social History Tobacco Use?: Yes Tobacco type used: Cigarettes Smoking Status: Current Everyday Smoker Substance use?: Yes Substance type: Marijuana Alcohol Use?: No Pt feels they are or have been: No Immunizations Up To Date First/Initial COVID19 Vaccinat: REFUSES VACCINE Past Medical History Surgeries: Yes Orthopedic Respiratory: Yes Asthma, COPD Cardiac: Yes Hypertension Neurological: No Genitourinary: No Gastrointestinal: Yes Gastroesophageal Reflux, Hemorrhoids Musculoskeletal: Yes (RIB FX'S) Chronic Back Pain Endocrine: No HEENT: No Cancer: No Psychosocial: Yes (MOOD SWINGS) Sleep Difficulties, Depression Integumentary: No Blood Disorders: No Physical Exam Vital Signs Vital Signs - First Documented 04/18/21 16:40 Temp 36.1 Pulse 87 Resp 18 B/P (MAP) 132/88 (103) Pulse Ox 97 Capillary Refill : Less Than 3 Seconds Height, Weight, BMI Height: 6'4.00" Weight: 298lbs. 0oz. 135.593340ku; 34.00 BMI Method:Stated General Appearance: WD/WN, no apparent distress HEENT: PERRL/EOMI, normal ENT inspection Neck: non-tender, full range of motion Respiratory: no respiratory distress, no accessory muscle use Hips: bilateral hip non-tender, bilateral hip normal inspection, bilateral hip normal range of motion Legs: bilateral leg non-tender, bilateral leg normal inspection, bilateral leg normal range of motion Knees: bilateral knee non-tender, bilateral knee normal inspection, bilateral knee normal range of motion Ankles: bilateral ankle non-tender, bilateral ankle normal inspection, bilateral ankle normal range of motion Feet: bilateral foot non-tender, bilateral foot normal inspection, bilateral foot normal range of motion Neurologic/Psychiatric: alert, normal mood/affect, oriented x 3 Skin: normal color, warm/dry Progress/Results/Core Measures Results/Orders Vital Signs/I&O 04/18/21 16:40 Temp 36.1 Pulse 87 Resp 18 B/P (MAP) 132/88 (103) Pulse Ox 97 Blood Pressure Mean: 103 Departure Impression Primary Impression: Contusion of foot Disposition: 01 HOME, SELF-CARE Condition: Stable Departure-Patient Inst. Decision time for Depature: 17:39 Referrals: PETRA GARZON MD (PCP/Family) Primary Care Physician Patient Instructions: Contusion (DC) Add. Discharge Instructions: 1. Elevate the foot is much as possible Tylenol and ibuprofen for pain control. Return to ER for any concerns. Use crutches as needed. Unfortunately at this time the hospital is out of crutches, you can get these at [facility] or [facility] typically. All discharge instructions reviewed with patient and/or family. Voiced understanding. Scripts Crutch (Crutch) 1 Each Each EACH for Pain, #1 Prov: AMI CALLAHAN APRN 04/18/21 AMI CALLAHAN APRN Apr 18, 2021 17:37
[2021-04-18] MEDS ORDERED: CRUT1EAC7 MC (17:41)
[2021-04-18 18:05] VITALS: BP 132/88
== END 2021-04-18 18:05 | disposition home or self-care (01) ==
LOC: EDUNIT# 16:17 → ER 16:19
DX: S90.32XA Contusion of left foot, initial encounter (principal); J44.9 Chronic obstructive pulmonary disease, unspecified; I10 Essential (primary) hypertension; G89.29 Other chronic pain; M54.9 Dorsalgia, unspecified; F17.210 Nicotine dependence, cigarettes, uncomplicated; Z79.891 Long term (current) use of opiate analgesic; W54.1XXA Struck by dog, initial encounter
CPT/HCPCS: 73630